=== PATIENT | male | born 1940 | race Caucasian/White ===

== ENCOUNTER 2021-01-06 09:30 | Inpatient (IN) | payer MEDICARE, MEDICAID, SELFPAY ==
[2021-01-06] VITALS (11 sets, daily range): BP systolic 139–168; BP diastolic 78–91; PULSE 60–88; RESP 12–18; TEMP 36.4–36.9; O2SAT 90–98; BMI 24.8
--- NOTE | ~2021-01-06 | XR_ITS ---
EXAMINATION: XR hip LT 1V EXAM DATE: 01/07/2021 13:11 INDICATION: Postop. TECHNIQUE: Frontal projection left hip obtained immediately postoperative. Correlation is made to pr eoperative x-ray from yesterday. FINDINGS: There is left hip arthroplasty hardware in expected position on this frontal image. Small amount of gas in the hip joint. Scattered superficial femoral arterial sclerosis. IMPRESSION: Status post left arthroplasty. Reviewed, dictated and finalized at location A.
--- NOTE | ~2021-01-06 | XR_ITS ---
EXAMINATION: XR hip LT 2V w AP pelvis EXAM DATE: 01/06/2021 10:05 INDICATION: Initial encounter following injury, with pain of the left hip. TECHNIQUE: Left hip frontal, crosstable lateral projections for interpretation. Frontal projection pe lvis. There is no prior study for comparison. FINDINGS: There is acute closed posttraumatic left hip subcapital femoral neck fracture with mild imp action and superior displacement. No hip dislocation. Moderate bilateral hip primary osteoarthritis. Calcifications in the pelvis are believed to be phleboliths. Pelvic ring is intact. Superficial femor al scattered arterial sclerosis. IMPRESSION: 1. Acute left subcapital femoral neck fracture, mild impaction and superior displacement. Reviewed, dictated and finalized at location A. IMPRESSION: 1. Acute left subcapital femoral neck fracture, mild impaction and superior di splacement.
--- NOTE | ~2021-01-06 | XR_ITS ---
XR chest 1V DATE: 01/06/2021 10:06 INDICATION: Fall. Diabetes. TECHNIQUE: AP chest COMPARISON: 01/18/2019 AP and lateral chest FINDINGS: Suboptimal distention of the lungs and atelectasis or mild infiltrates at the lung bases. Borderline heart size. Aortic calcification and prominent tortuosity. Calcified azygous nodes, consistent with old pulmonary granulomatous disease. Diffuse osteopenia. IMPRESSION: Mild infiltrate or atelectasis at the lung bases Reviewed, dictated and finalized at location B.
--- NOTE | 2021-01-06 09:34 | ECG_ITS ---
Measurements Intervals Moon Rate: 67 P: -54 ME: 201 QRS: -24 QRSD: 84 T: 11 QT: 393 QTc: 415 Interpretive Statements SINUS RHYTHM CONSIDER INFERIOR INFARCT, AGE INDETERMINATE BASELINE ARTIFACT- I, II, III, AVR, AVL, AVF ABNORMAL ECG Electronically Signed On 01-06-2021 11:18:48 CDT by Billy Celis D.O.
--- NOTE | 2021-01-06 09:34 | ED.GENADULT ---
HPI - General Adult General Chief complaint: Extremity Injury, Lower Stated complaint: FALL/HIP FX Source: RN notes reviewed History of Present Illness HPI narrative: Patient presents emergency department from home via EMS for left hip pain. Patient states that prior to arrival he was trying to move a sock on the ground in the dining room with his right foot when his left foot went out from under him causing him to fall and land on his left hip states he is had severe pain since that time patient states that he lives at home with his daughter and ambulates with no assistance he denies any blood thinner use he denies striking his head or any other injury Related Data Home Medications Medication Instructions Recorded Confirmed alprazolam [Xanax] 2 mg PO BID 01/06/21 glimepiride 2 mg PO DAILY 01/06/21 01/06/21 hydrocodone-acetaminophen 1 tablet PO Q6H PRN 01/06/21 01/06/21 insulin detemir U-100 [Levemir unit SUBCUT HS 01/06/21 U-100 Insulin] lisinopril 10 mg PO DAILY 01/06/21 memantine 10 mg PO QPM 01/06/21 metformin 500 mg PO DAILY 01/06/21 simvastatin 80 mg PO DAILY 01/06/21 verapamil 180 mg PO DAILY 01/06/21 Allergies Allergy/AdvReac Type Severity Reaction Status Date / Time No Known Allergies Allergy Verified 01/06/21 10:42 Review of Systems Review of Systems: Narrative: Gen.: Denies fevers or chills Eyes: Denies eye pain or visual change ENT: Denies congestion Respiratory: Denies shortness of breath or cough CV: Denies chest pain or palpitations GI: Denies abdominal pain nausea, emesis or diarrhea Musculoskeletal: See HPI Neuro: Denies numbness, tingling, weakness or focal weakness Skin: Denies rash Except as documented, all other systems reviewed and negative [facility] Past Medical History Medical History (Updated 01/06/21 @ 11:37 by Rylan Reynoso DO) Diabetes mellitus Social History Social History (Updated 01/06/21 @ 09:35 by Rylan Reynoso DO) Smoking status: Never smoker Exam Narrative: Exam Narrative: APPEARANCE: No acute distress, nontoxic, resting in bed EYES: EOMI HEENT: Normocephalic, atraumatic, OMM RESPIRATORY: No respiratory distress Clear to auscultation bilaterally with no rhonchi wheezing or rales. CARDIOVASCULAR: Regular rate and rhythm without murmurs rubs or gallops. ABDOMINAL: Soft, nontender, nondistended, no rebound or guarding MUSCULOSKELETAl:No clubbing, cyanosis or edema. Tender palpation over left lateral and anterior hip with pain with any movement of the left hip no tenderness left knee or ankle, dorsalis pedis pulse 2+ neurovascular intact no tenderness the bilateral upper extremities and the right lower extremity NEURO: Awake and alert x 4. Following commands, speech normal, no focal deficits SKIN:: Warm, dry. No rashes lesions or abrasions PSYCHIATRIC: Normal affect/mood, Course Course Emergency Course: Discussed with Dr. Esqueda for orthopedics presentation work-up agrees with consult Dr. Motley presentation work-up agrees with admission at this time Discussed with patient and family results of workup and diagnosis. Discussed need for admission. Patient and family understand and agree to current treatment plan Vital Signs Vital signs: Vital Signs Temperature 97.6 F 01/06/21 09:28 Pulse Rate 79 01/06/21 09:28 Respiratory Rate 16 01/06/21 09:28 Blood Pressure 153/82 H 01/06/21 09:28 Pulse Oximetry 94 01/06/21 09:28 Temperature 97.6 F 01/06/21 09:28 Pulse Rate 79 01/06/21 09:28 Respiratory Rate 16 01/06/21 09:28 Blood Pressure 153/82 H 01/06/21 09:28 Pulse Oximetry 94 01/06/21 09:28 Medical Decision Making Vital Signs Vital Signs: Vital Signs Temperature 97.6 F 01/06/21 09:28 Pulse Rate 79 01/06/21 09:28 Respiratory Rate 16 01/06/21 09:28 Blood Pressure 153/82 H 01/06/21 09:28 Pulse Oximetry 94 01/06/21 09:28 Temperature 97.6 F 01/06/21 09:28 Pulse Rate 79 01/06/21 09:28 Resp
[2021-01-06 10:09] LABS: Basophils Absolute Auto 0.1 K/mm3 (0.0-0.1); Basophils Percent Auto 0.5 % (0.2-1.2); Eosinophils Absolute Auto 1.1 K/mm3 (0-0.3); Eosinophils Percent Auto 11.3 % (0-4.4); Hematocrit 44.1 % (42.0-52.0); Hemoglobin 14.3 g/dL (14.0-18.0); Immature Granulocyte Absolute 0.04 K/mm3 (0.00-0.031); Immature Granulocyte Percent A 0.4 % (0-0.5); Lymphocytes Absolute Auto 2.36 K/mm3 (0.9-3.2); Lymphocytes Percent Auto 24.6 % (18.3-44.2); Mean Corpuscular HGB Conc 32.4 g/dl (32-36); Mean Corpuscular Hemoglobin 29.1 pg (26-34); Mean Corpuscular Volume 89.8 fl (80-100); Mean Platelet Volume 9.6 fl (7.4-10.4); Monocytes Absolute Auto 0.5 K/mm3 (0.1-0.6); Monocytes Percent Auto 5.1 % (2.6-8.5); Neutrophils Absolute Auto 5.6 K/mm3 (1.3-6.7); Neutrophils Percent Auto 58.1 % (45.5-73.1); Platelet Count Result 233 k/mm3 (150-375); Red Blood Count 4.91 M/mm3 (4.6-6.20); Red Cell Distribution Width 14.1 % (11.5-14.5); White Blood Count 9.6 K/mm3 (4.5-10.0)
[2021-01-06 10:19] LABS: INR 0.9; Partial Thromboplastin Time 27.1 SECONDS (22.3-36.8); Prothrombin Time 12.8 Seconds (11.1-14.7)
[2021-01-06 10:29] LABS: Alanine Aminotransferase 18 U/L (4-50); Albumin Level 4.6 g/dL (3.5-5.1); Alkaline Phosphatase 83 U/L (38-126); Anion Gap 9 mmol/L (8-16); Aspartate Amino Transferase 25 U/L (17-59); Bilirubin,Total 0.2 mg/dL (0.2-1.3); Blood Urea Nitrogen 27 mg/dL (9-20); Calcium 9.3 mg/dL (8.4-10.2); Carbon Dioxide 26 mmol/L (22-30); Chloride 104 mmol/L (98-107); Estimated CRCL calculation 46 ml/min; Estimated Glomerular Filt Rate 58; Glucose 150 mg/dL (75-110); Sodium 139 mmol/L (137-145)
[2021-01-06] MEDS: fentaNYL CITRATE INJ (*CRX) 100 MCG/2 ML VIAL 50 MCG IV PUSH (11:12)
[2021-01-06 12:35] LABS: Add Urine Microscopic? YES; Appearance Urine Clear (Clear); Bilirubin Urine Negative (Negative); Blood Urine Negative (Negative); Color Urine Straw (Yellow); Glucose Urine UA Negative (Negative); Ketones Urine Negative (Negative); Leukocyte Esterase Ur Negative LEU/UL (Negative); Nitrate Urine Negative (Negative); Protein Urine 2+ mg/dL (Negative); RBC Urine 0-2 /hpf (0-2); Specific Grav Ur 1.018 (1.001-1.035); Urobilinogen Urine Negative mg/dL (<2.0); WBC Urine 0-3 /hpf
--- NOTE | 2021-01-06 12:36 | ADMGEN ---
This patient, Vitaly Hatfield, was admitted to Medical Room 255-. Patient/family oriented to hospital policies and general routines including ID bracelet, bed and alarms, visiting hours, pain management, procedures, bathroom and other care routines, personal items, smoking policy, room service/diet, and visiting hours. Information on how to activate the Rapid Response Team has been discussed. Patient/Family are encouraged to report perceived risks to care and to ask questions if they do not understand what they are told or what they should do.
[2021-01-06] MEDS: SODIUM CHLORIDE 0.9% IV 1,000 ML 125 ML IV CONT ×2 (12:54→21:10)
--- NOTE | 2021-01-06 13:00 | PM.IMHP ---
H&P: HPI History of Present Illness Date/Time: 01/06/21 13:00 Chief Complaint: Left hip pain after a fall. Narrative: This is an 80-year-old male with history of stroke, insulin dependent, diabetes, hypertension, and hyperlipidemia who presented to the emergency department earlier today from home via EMS for evaluation of left hip pain after a fall. Unfortunately he lost his balance on a hardwood floor when he bent over to pick something up, and fell hard onto his left hip. He had immediate pain in that hip and was unable to bear weight due to such. Imaging showed an acute left subcapital femoral neck fracture and he is being admitted in this setting. initially we were having difficulties controlling his pain but at this time he is resting comfortably and rates his pain 3/10. He has a difficult time describing the pain but states that it is severe and he is having occasional spasms. The pain is worse with movement. He denies loss of consciousness in the fall and sustained no other injuries. No history of cardiac or pulmonary disease. He denies exertional chest pain and shortness of breath. No history of adverse events with anesthesia. Review of Systems Review of Systems: Narrative: Twelve systems were reviewed with pertinent positives and negatives as per HPI. No fever, chills, or sweats. He denies recent cold and flu symptoms. No exposure to those positive for COVID-19. He denies nausea, vomiting, and diarrhea. No dysuria. He gets quite anxious and admits that he was highly anxious earlier today which he thinks was making the pain worse. Much more calm at this time. He believes his diabetes is well controlled . No blurry vision, polydipsia, or polyuria. On memantine for memory loss, denies dementia diagnosis. No history of venous thromboembolism. Except as documented, all other systems were reviewed and are negative. [facility] Past Medical History Medical History Anxiety Cerebrovascular accident (10/27/18) Hyperlipidemia Hypertension Insulin dependent diabetes mellitus Surgical History Surgical History History of colostomy History of inguinal hernia repair Family History Family History Mother Diabetes mellitus Congestive heart failure Father Cerebrovascular accident Social History Social History (Updated 01/06/21 @ 23:47 by Erma Mclaughlin PA-C) Social History: The patient lives in [place] with his daughter. Former smoker. No alcohol or illicit substance abuse. Kelly Fernandez, daughter, is his surrogate decision maker. Code status: Full code. Smoking status: Former smoker Alcohol intake: never Substance use: never Substance use type: does not use Living arrangements: with family Additional living arrangements comments: Patient currently lives with his daughter Occupation/Education: retired Additional occupation/education comments: He is a retired banker Gender identity (if verbalized by the patient): Male Spiritual care concerns: No Meds Home Medications and Allergies Home Medications Medication Instructions Recorded Confirmed Type alprazolam [Xanax] 2 mg PO BID 01/06/21 01/06/21 History glimepiride 2 mg PO DAILY 01/06/21 01/06/21 History hydrocodone-acetaminophen 1 tablet PO Q6H PRN 01/06/21 01/06/21 History insulin detemir U-100 [Levemir 12 unit SUBCUT HS 01/06/21 01/06/21 History U-100 Insulin] lisinopril 10 mg PO DAILY 01/06/21 01/06/21 History memantine 10 mg PO QPM 01/06/21 01/06/21 History metformin 500 mg PO DAILY 01/06/21 01/06/21 History simvastatin 80 mg PO DAILY 01/06/21 01/06/21 History verapamil 180 mg PO DAILY 01/06/21 01/06/21 History Allergies Allergy/AdvReac Type Severity Reaction Status Date / Time No Known Allergies Allergy Verified 01/06/21 12:45 Vital Signs
[2021-01-06 13:13] LABS: Glucose Point of Care 154 (65-105)
[2021-01-06 13:48] LABS: Hemoglobin A1C 6.7 % (<5.7)
[2021-01-06] MEDS: ALPRAZolam (*CRX) 0.5 MG TABLET 2 MG PO ×2 (13:51→23:31)
[2021-01-06] MEDS: HYDROmorphone HCL INJ (*CRX) 1 MG/ML SYR 0.5 MG IV PUSH ×3 (14:00→21:14)
--- NOTE | 2021-01-06 15:24 | PM.CNOR ---
Assessment and Plan Assessment and plan (1) Subcapital fracture of left hip: Qualifiers: Encounter type: initial encounter Fracture type: closed Qualified Code(s): S72.012A - Unspecified intracapsular fracture of left femur, initial encounter for closed fracture <GIGI Fine - Last Filed: 01/06/21 15:38> Code(s): S72.012A - Unspecified intracapsular fracture of left femur, initial encounter for closed fracture <GIGI Fine - Last Filed: 01/06/21 15:38> Status: Acute <GIGI Fine - Last Filed: 01/06/21 15:38> Assessment and Plan: Radiographs the left hip revealed an acute left subcapital femoral neck fracture, mild impaction and superior displacement. History, exam and radiographs reviewed with the patient. Conservative and operative treatment options reviewed as well the risks and benefits of each. Patient would like to proceed with surgical intervention at this time. Discussed Left Hip Bipolar vs. Left KEL Risks of surgery including but not limited to neurovascular damage, wound complications, blood clot, pulmonary embolus, stroke, myocardial infarction, anesthetic risks up to and including were reviewed. Continued pain and possible dysfunction were explained. No guarantees were offered. The patient understands and wishes to proceed. Plan: Left Hip Bipolar with potential for left total hip arthroplasty pending medical clearance NPO at midnight. Obtain consent. Continue pain control. Bedrest. <GIGI Fine - Last Filed: 01/06/21 15:38> History of Present Illness HPI Consult date: 01/06/21 <GIGI Fine - Last Filed: 01/06/21 15:38> 01/07/21 <Lucas Jade MD - Last Filed: 01/07/21 07:24> Consult reason: fracture ( Left hip fracture) <GIGI Fine - Last Filed: 01/06/21 15:38> Chief complaint: Left hip fracture <GIGI Fine - Last Filed: 01/06/21 15:38> Narrative: 80-year-old male admitted [facility] today status post fall while at home after tripping over his legs well going to flower buncher or picker his granddaughter socks. Patient had a hard fall onto the left hip and was unable to bear weight status post fall. He denies loss of consciousness. He denies any other joint pain. He was the then admitted to the [place] [facility] room and radiographs the left hip were obtained which revealed an acute left subcapital femoral neck fracture, mild impaction and superior displacement. He was admitted to [facility] for orthopedic surgery consultation. <IGNACIO FineP - Last Filed: 01/06/21 15:38> Review of Systems Constitutional: Constitutional: Reports no additional constitutional complaints, Denies chills, Denies fatigue, Denies fever(s), Denies headache(s) and Denies weakness <NadyaIGNACIO RandleP - Last Filed: 01/06/21 15:38> Eyes: Eyes: Denies change in vision <Nadyasa Enmanuel Nava [facility] - Last Filed: 01/06/21 15:38> ENT: Reports Normal hearing present and Denies headache(s) <Nadya Enmanuel Nava [facility] - Last Filed: 01/06/21 15:38> Cardiovascular: Cardiovascular: Denies chest pain and Denies dyspnea <Nadya Enmanuel Nava [facility] - Last Filed: 01/06/21 15:38> Respiratory: Respiratory: Denies cough, Denies dyspnea and Denies wheezing <Nadya Enmanuel Nava [facility] - Last Filed: 01/06/21 15:38> Gastrointestinal: Gastrointestinal: Denies constipation, Denies diarrhea, Denies nausea and Denies vomiting <Nadya Enmanuel Nava [employer] - Last Filed: 01/06/21 15:38> Genitourinary: Genitourinary: Denies hematuria and Denies dysuria <Nadya Enmanuel Nava [employer] - Last Filed: 01/06/21 15:38> Musculoskeletal: Musculoskeletal: Reports as per HPI, Denies numbness and Denies tingling <Nadya IGNACIO BowmanP - Last Filed: 01/06/21 15:38> Integumentary/Breasts: Skin/Breast: Reports as per HPI <Nadya IGNACIO BowmanP - Last Filed: 01/06/21 15:38> Neurologic: Reports as per HPI, Reports Normal hearing present, Denies headache(s), Denies n
[2021-01-06 17:18] LABS: Glucose Point of Care 148 (65-105)
[2021-01-06] MEDS: MEMANTINE 10 MG TABLET PO (17:24)
[2021-01-06 20:38] LABS: Glucose Point of Care 143 (65-105)
[2021-01-07] VITALS (18 sets, daily range): BP systolic 98–160; BP diastolic 66–98; PULSE 68–110; RESP 13–20; TEMP 36.2–37.4; O2SAT 90–98
[2021-01-07] MEDS: SODIUM CHLORIDE 0.9% IV 1,000 ML 125 ML IV CONT (05:15)
[2021-01-07] MEDS: HYDROmorphone HCL INJ (*CRX) 1 MG/ML SYR 0.5 MG IV PUSH (05:16)
[2021-01-07 06:23] LABS: Basophils Absolute Auto 0.1 K/mm3 (0.0-0.1); Basophils Percent Auto 0.4 % (0.2-1.2); Eosinophils Absolute Auto 0.9 K/mm3 (0-0.3); Hemoglobin 14.2 g/dL (14.0-18.0); Immature Granulocyte Absolute 0.04 K/mm3 (0.00-0.031); Immature Granulocyte Percent A 0.3 % (0-0.5); Lymphocytes Absolute Auto 1.35 K/mm3 (0.9-3.2); Lymphocytes Percent Auto 11.6 % (18.3-44.2); Mean Corpuscular Hemoglobin 28.6 pg (26-34); Mean Corpuscular Volume 86.5 fl (80-100); Mean Platelet Volume 9.6 fl (7.4-10.4); Monocytes Absolute Auto 0.8 K/mm3 (0.1-0.6); Monocytes Percent Auto 6.8 % (2.6-8.5); Neutrophils Absolute Auto 8.5 K/mm3 (1.3-6.7); Neutrophils Percent Auto 72.9 % (45.5-73.1); Platelet Count Result 215 k/mm3 (150-375); Red Blood Count 4.97 M/mm3 (4.6-6.20); Red Cell Distribution Width 13.8 % (11.5-14.5); White Blood Count 11.6 K/mm3 (4.5-10.0)
[2021-01-07] MEDS: VERAPAMIL HCL 180 MG TABLET ER PO (06:30)
[2021-01-07] MEDS: lisinopriL 10 MG TABLET PO (06:30)
[2021-01-07 06:38] LABS: Alanine Aminotransferase 12 U/L (4-50); Albumin Level 3.8 g/dL (3.5-5.1); Alkaline Phosphatase 57 U/L (38-126); Anion Gap 9 mmol/L (8-16); Aspartate Amino Transferase 19 U/L (17-59); Bilirubin,Total 0.5 mg/dL (0.2-1.3); Blood Urea Nitrogen 13 mg/dL (9-20); Calcium 8.6 mg/dL (8.4-10.2); Carbon Dioxide 23 mmol/L (22-30); Chloride 102 mmol/L (98-107); Estimated CRCL calculation 68 ml/min; Estimated Glomerular Filt Rate > 60; Glucose 162 mg/dL (75-110); Potassium 4.3 mmol/L (3.4-5.0); Sodium 134 mmol/L (137-145)
--- NOTE | 2021-01-07 07:23 | WPDHPUPDATE1 ---
History and Physical Update Update Date/Time: 01/07/21 07:23 History and Physical has been reviewed, including an updated exam of the patient. There are NO changes in the patient's condition. Risks, benefits, and alternatives have been discussed and questions answered. Patient agrees to proceed with procedure.
[2021-01-07 08:39] LABS: Glucose Point of Care 164 (65-105)
[2021-01-07 09:55] LABS: Glucose Point of Care 147 (65-105)
[2021-01-07] MEDS: TRANEXAMIC ACID 1,000MG/ISO100 1,000 MG/100 ML BAG 200 MG IVPB (10:00)
[2021-01-07] MEDS: LACTATED RINGERS 1,000 ML 30 ML IV CONT ×2 (10:00→12:57)
--- NOTE | 2021-01-07 10:00 | PC.NURSE ---
Pt to OR per bed.
--- NOTE | 2021-01-07 10:11 | WPDANESEPPF ---
Anes - Initial Pre Proc Eval Procedure: Operation Date: 01/07/21 11:00 Proposed Procedures p Left Bipolar Versus Left Total Hip Arthroplasty - Lucas Jade MD Date/Time: 01/07/21 10:11 Surgeon: Nancy Felix MD Pre Op Diagnosis: Left hip fracture Patient Data Age: 80 Gender: M Height: 1.83 m Weight: 83.2 kg Last Vital Signs Temp 36.6 C 01/07/21 06:00 Pulse 102 H 01/07/21 06:00 Resp 16 01/07/21 06:00 BP 160/98 H 01/07/21 06:00 Pulse Ox 91 01/07/21 09:51 Allergies Allergy/AdvReac Type Severity Reaction Status Date / Time No Known Allergies Allergy Verified 01/07/21 10:08 Home Medications Medication Instructions Recorded Confirmed Type alprazolam [Xanax] 2 mg PO BID 01/06/21 01/06/21 History glimepiride 2 mg PO DAILY 01/06/21 01/06/21 History hydrocodone-acetaminophen 1 tablet PO Q6H PRN 01/06/21 01/06/21 History insulin detemir U-100 [Levemir 12 unit SUBCUT HS 01/06/21 01/06/21 History U-100 Insulin] lisinopril 10 mg PO DAILY 01/06/21 01/06/21 History memantine 10 mg PO QPM 01/06/21 01/06/21 History metformin 500 mg PO DAILY 01/06/21 01/06/21 History simvastatin 80 mg PO DAILY 01/06/21 01/06/21 History verapamil 180 mg PO DAILY 01/06/21 01/06/21 History Laboratory Tests 01/06/21 01/06/21 01/06/21 09:53 09:53 09:53 WBC 9.6 K/mm3 K/mm3 (4.5-10.0) RBC 4.91 M/mm3 M/mm3 (4.6-6.20) Hgb 14.3 g/dL g/dL (14.0-18.0) Hct 44.1 % % (42.0-52.0) MCV 89.8 fl fl (80-100) MCH 29.1 pg pg (26-34) MCHC 32.4 g/dl g/dl (32-36) RDW 14.1 % % (11.5-14.5) Plt Count 233 k/mm3 k/mm3 (150-375) MPV 9.6 fl fl (7.4-10.4) Immature Gran % (Auto) 0.4 % % (0-0.5) Neut % (Auto) 58.1 % % (45.5-73.1) Lymph % (Auto) 24.6 % % (18.3-44.2) [place] % (Auto) 5.1 % % (2.6-8.5) Eos % (Auto) 11.3 % H % (0-4.4) Baso % (Auto) 0.5 % % (0.2-1.2) Lymph # (Auto) 2.36 K/mm3 K/mm3 (0.9-3.2) [place] # (Auto) 0.5 K/mm3 K/mm3 (0.1-0.6) Eos # (Auto) 1.1 K/mm3 H K/mm3 (0-0.3) Baso # (Auto) 0.1 K/mm3 K/mm3 (0.0-0.1) Abs Immat Gran (auto) 0.04 K/mm3 H K/mm3 (0.00-0.031) Absolute Neuts (auto) 5.6 K/mm3 K/mm3 (1.3-6.7) Absolute Nucleated RBC 0.0 K/mm3 K/mm3 (0.0-0.012) Nucleated RBC % 0.0 % % (0.0-0.2) PT 12.8 Seconds Seconds (11.1-14.7) INR 0.9 APTT 27.1 SECONDS SECONDS (22.3-36.8) Sodium 139 mmol/L mmol/L (137-145) Potassium 5.0 mmol/L mmol/L (3.4-5.0) Chloride 104 mmol/L mmol/L (98-107) Carbon Dioxide 26 mmol/L mmol/L (22-30) Anion Gap 9 mmol/L mmol/L (8-16) BUN 27 mg/dL H mg/dL (9-20) Creatinine 1.20 mg/dL mg/dL (0.7-1.3) Estim Creat Clear Calc 46 ml/min ml/min Estimated GFR 58 L (59 - ) Glucose 150 mg/dL H mg/dL (75-110) POC Capillary Glucose Hemoglobin A1c Calcium 9.3 mg/dL mg/dL (8.4-10.2) Total Bilirubin 0.2 mg/dL mg/dL (0.2-1.3) Direct Bilirubin AST 25 U/L U/L (17-59) ALT 18 U/L U/L (4-50) Alkaline Phosphatase 83 U/L U/L (38-126) Total Protein 8.0 g/dL g/dL (6.3-8.2) Albumin 4.6 g/dL g/dL (3.5-5.1) Urine Color Urine Appearance Urine pH Ur Specific [place] Urine Protein Urine Glucose (UA) Urine Ketones Ur Blood (Man) Urine Nitrate Urine Bilirubin Urine Urobilinogen Leukocyte Esterase Rfl Urine RBC Urine WBC Blood Type Antibody Screen 01/06/21 01/06/21 01/06/21 09:53 12:02
[2021-01-07] MEDS: ceFAZolin 2 GM/D5W 50 ML 2 GM/50 ML BAG IVPB ×2 (10:52→18:19)
[2021-01-07] MEDS: TRANEXAMIC ACID 1,000 MG/10 ML AMPUL 1000 MG IV PUSH (12:26)
--- NOTE | 2021-01-07 12:35 | P.OP_ITS ---
Procedure Note - Detailed Date of procedure: 01/07/21 Pre-op diagnosis: Left hip fracture LEFT FEMORAL NECK FRACTURE Post-op diagnosis: same Procedure performed: LEFT HIP BIPOLAR HEMIARTHROPLASTY Description of procedure: THE PATIENT WAS TAKEN TO THE OPERATING ROOM IN STABLE CONDITION. HE WAS PLACED IN THE LATERAL DECUBITUS AND THE LEFT LOWER EXTREMITY WAS PREPPED AND DRAPED IN THE STERILE FASHION. INCISION WAS MADE IN THE POSTERIOR LATERAL SIDE OF THE HIP, DOWN TO THE FASCIA LAYER. THE FASCIA WAS INCISED. THE HIP WAS EXPOSED. THE SHORT EXTERNAL ROTATORS WERE EXPOSED AND THERE WAS A LARGE HEMATOMA. THE CAPSULE WAS INCISED EXPOSING THE FRACTURE. THE FEMORAL HEAD WAS REMOVED. IT MEASURED 53 MM. AN OSTEOTOMY WAS MADE TO THE FEMORAL NECK ABOUT 1 CM PROXIMAL TO THE LESSER TROCHANTER. NEXT THE FEMUR WAS P REPARED WITH INITIAL CANAL FINDER THEN SEQUENTIAL REAMING UNTIL A #10 REAMER AND BROACHING TILL A #10 BROACH FIT WELL IN 15 OF ANTE VERSION. A 0 STANDARD OFFSET NECK BIPOLAR TRIAL WAS PLACED. THE SHUCK TEST WAS EXCELLENT AND THE STABILITY IN FLEXION AND ROTATION WAS EXCELLENT. LEG LENGTHS WERE GROSSLY EQUAL. TRIALS WERE REMOVED. AN ECHO BIMETRIC #10 PRESS FIT STEM WAS PLACED WITH A STANDARD O FFSET IN 15 DEG OF ANTEVERSION. A 0 BIPOLAR HEAD NECK TRIAL WAS PLACED AGAIN. THE HIP WAS TRIALED AND THE STABILITY WAS EXCELLENT WERE THE LEG LENGTHS AND THE SHUCK TEST. NEXT A BIPOLAR 54 MM HEAD AND STANDARD OFFSET 0 NECK IMPLANT WAS PLACED AND TRIALED ONCE AGAIN SHOWING EXCELLENT STABILITY AND GROSSLY EQUAL LEG LENGTHS. THE WOUND WAS IRRIGATED WITH STERILE BETADINE AND WATER FOR 3 MIN. THEN WASHED AGAIN. THE CAPSULE AND THE EXTERNAL ROTATORS WERE APPROXIMATED WITH NUMBER 1 VICRYL. THE FASCIA WITH No 2 QUIL AND THE SUB CUTANEOUS LAYER WITH 2-0 ABSORBABLE SUTURE WITH A RUNNING 3-0 SUBCUTICULAR LAYER WELL. DERMABOND WAS PLACED AND STERILE DRESSING WAS APPLIED. PATIENT WAS PLACED BACK ON TO THE SUPINE POSITION AND WAS EXTUBATED. Anesthesia: GETA Surgeon: Lucas Jade MD Estimated blood loss (mL): 200 Drains: No Pathology: none sent Complications: No immediate complications Condition: stable Disposition: PACU
[2021-01-07 13:30] LABS: Glucose Point of Care 166 (65-105)
[2021-01-07] MEDS: SIMVASTATIN 20 MG TABLET 80 MG PO (14:41)
[2021-01-07] MEDS: ALPRAZolam (*CRX) 0.5 MG TABLET 2 MG PO ×2 (14:45→20:32)
[2021-01-07 15:06] LABS: Hematocrit 44.2 % (42.0-52.0); Hemoglobin 14.3 g/dL (14.0-18.0)
[2021-01-07] MEDS: GLIMEPIRIDE 2 MG TABLET PO (15:34)
[2021-01-07] MEDS: INSULIN ASPART (*BKC) 100 UNITS/ML SUB-Q ×2 (15:34→17:30)
[2021-01-07] MEDS: DOCUSATE SODIUM 100 MG CAPSULE PO (16:28)
--- NOTE | 2021-01-07 16:28 | PM.IMPN ---
Progress Note: A&P Assessment and Plan (1) Subcapital fracture of left hip: Qualifiers: Encounter type: initial encounter Fracture type: closed Qualified Code(s): S72.012A - Unspecified intracapsular fracture of left femur, initial encounter for closed fracture Code(s): S72.012A - Unspecified intracapsular fracture of left femur, initial encounter for closed fracture Status: Acute Assessment and Plan: Sp LEFT HIP BIPOLAR HEMIARTHROPLASTY. Continue pain control, SCds, watch UO (2) Hypertension: Code(s): I10 - Essential (primary) hypertension Status: Chronic Assessment and Plan: Continue home medications - SOPHIA inhibitors (3) Insulin dependent diabetes mellitus: Status: Chronic Assessment and Plan: Continue home medications - metformin, insulin, glimepiride (4) Hyperlipidemia: Code(s): E78.5 - Hyperlipidemia, unspecified Status: Chronic Assessment and Plan: Continue home medications - statin (5) Anxiety: Code(s): F41.9 - Anxiety disorder, unspecified Status: Chronic Assessment and Plan: Continue home medications - xanax Subjective Date/time seen: 01/07/21 16:28 Interval history: 80-year-old male with history of stroke, insulin dependent, diabetes, hypertension, and hyperlipidemia who presented to the emergency department earlier today from home via EMS for evaluation of left hip pain after a fall. SP LEFT HIP BIPOLAR HEMIARTHROPLASTY. WAtch UO. Review of Systems Review of Systems: All systems reviewed & are unremarkable except as noted in HPI and below Exam Narrative: Exam Narrative: General: Well-developed post op lying in bed Gastrointestinal: Abdomen is soft nontender, and nondistended with positive bowel sounds. Genitourinary: Simms catheter draining clear yellow urine. Skin: Warm and dry. No rash or lesions on limited exam. Extremities: No cyanosis, clubbing, or edema. Radial and pedal pulses intact. Musculoskeletal: Fresh incision with occlusive dressing Neurological: Alert. Cranial nerves 2-12 are grossly intact. No gross focal deficits to casual conversation. Psychiatric: Pleasant and cooperative with normal mood and affect. Objective Data Vital Signs Vital Signs: Vital Signs - 24 hr 01/06/21 18:00 01/06/21 21:25 01/07/21 06:00 Temperature 36.9 C 36.8 C 36.6 C Pulse Rate 84 88 102 H Respiratory Rate 18 18 16 Blood Pressure 168/88 H 168/90 H 160/98 H Pulse Oximetry 90 95 94 01/07/21 09:51 01/07/21 09:53 01/07/21 13:00 Temperature 37.4 C 36.9 C Pulse Rate 110 H 75 Respiratory Rate 18 16 Blood Pressure 154/97 H 130/81 Pulse Oximetry 91 94 97 01/07/21 13:15 01/07/21 13:30 01/07/21 13:45 Temperature Pulse Rate 77 74 78 Respiratory Rate 13 13 20 Blood Pressure 134/82 135/84 143/86 H Pulse Oximetry 96 96 98 01/07/21 14:00 01/07/21 14:15 01/07/21 14:40 Temperature Pulse Rate 77 84 Respiratory Rate 16 20 Blood Pressure 153/93 H 147/86 H Pulse Oximetry 94 95 95 01/07/21 15:27 Temperature Pulse Rate Respiratory Rate Blood Pressure Pulse Oximetry 95 Intake/Output Intake/Output: Intake & Output 01/04/21 01/05/21 01/06/21 01/07/21 23:59 23:59 23:59 23:59 Intake Total 1100 1600 Output Total 950 1905 Balance 150 -305 Meds/Results Medications: Active Medications Generic Name Dose Route Start Last Admin Trade Name Freq PRN Reason Stop Dose Admin Acetaminophen 650 mg 01/06/21 13:32 Acetaminophen 325 Mg Tablet PO Q6H PRN Mild Pain (1-3) or Fever Hydrocodone Bitart/Acetaminophen 1 tab 01/07/21 13:02 Hydrocodone/Acetaminophen (*Crx) 7.5-325 Mg Tablet PO Q3H PRN Pain Rated 4-6 Alprazolam 2 mg 01/06/21 13:30 01/07/21 14:45 Alprazolam (*Crx) 0.5 Mg Tablet PO 2 mg Q12HR ROBY Administration Aspirin 325 mg 01/07/21 21:00 Aspirin 325 Mg Enteric Tablet PO Q12HR ROBY Dextrose
[2021-01-07] MEDS: MEMANTINE 10 MG TABLET PO (17:32)
[2021-01-07 17:42] LABS: Glucose Point of Care 227 mg/dl (65-105)
[2021-01-07 17:42] LABS: Glucose Point of Care 286 mg/dl (65-105)
[2021-01-07] MEDS: HYDROcodone/acetaminophen (*CRX) 7.5-325 MG TABLET 1 TAB PO (18:22)
[2021-01-07] MEDS: FAMOTIDINE 20 MG TABLET PO (20:32)
[2021-01-07] MEDS: ASPIRIN 325 MG ENTERIC TABLET PO (20:32)
[2021-01-07] MEDS: INSULIN DETEMIR 100 UNITS/ML 12 UNITS SUB-Q (20:35)
[2021-01-07 20:46] LABS: Glucose Point of Care 285 mg/dl (65-105)
[2021-01-08 02:47] VITALS: BP 153/84; PULSE 83; RESP 18; TEMP 36.8; O2SAT 96
[2021-01-08] MEDS: ceFAZolin 2 GM/D5W 50 ML 2 GM/50 ML BAG IVPB ×2 (03:18→11:18)
[2021-01-08 06:39] LABS: Basophils Percent Auto 0.3 % (0.2-1.2); Eosinophils Percent Auto 0.1 % (0-4.4); Hematocrit 37.8 % (42.0-52.0); Hemoglobin 12.3 g/dL (14.0-18.0); Immature Granulocyte Absolute 0.03 K/mm3 (0.00-0.031); Immature Granulocyte Percent A 0.3 % (0-0.5); Lymphocytes Absolute Auto 1.01 K/mm3 (0.9-3.2); Lymphocytes Percent Auto 9.2 % (18.3-44.2); Mean Corpuscular HGB Conc 32.5 g/dl (32-36); Mean Corpuscular Hemoglobin 28.4 pg (26-34); Mean Corpuscular Volume 87.3 fl (80-100); Mean Platelet Volume 9.2 fl (7.4-10.4); Monocytes Absolute Auto 1.1 K/mm3 (0.1-0.6); Monocytes Percent Auto 10.1 % (2.6-8.5); Neutrophils Absolute Auto 8.8 K/mm3 (1.3-6.7); Platelet Count Result 165 k/mm3 (150-375); Red Blood Count 4.33 M/mm3 (4.6-6.20); Red Cell Distribution Width 13.9 % (11.5-14.5)
[2021-01-08 06:47] VITALS: BP 141/82; PULSE 87; RESP 21; TEMP 36.9; O2SAT 100
[2021-01-08 06:48] LABS: Anion Gap 8 mmol/L (8-16); Blood Urea Nitrogen 16 mg/dL (9-20); Calcium 8.3 mg/dL (8.4-10.2); Carbon Dioxide 20 mmol/L (22-30); Chloride 103 mmol/L (98-107); Estimated CRCL calculation 50 ml/min; Estimated Glomerular Filt Rate > 60; Glucose 187 mg/dL (75-110); Potassium 4.7 mmol/L (3.4-5.0); Sodium 131 mmol/L (137-145)
--- NOTE | 2021-01-08 08:24 | WPDANESPN ---
Anes - Prog Note Post-Op Date/Time: 01/08/21 08:24 Cardiovascular status: normal Respiratory status: normal Airway patency: baseline Mental status: baseline Post-Op hydration status: normal Vital Signs: Last Vital Signs Temp 36.9 C 01/08/21 06:47 Pulse 87 01/08/21 06:47 Resp 21 H 01/08/21 06:47 BP 141/82 H 01/08/21 06:47 Pulse Ox 100 01/08/21 06:47 Pain Score (VAS): 0 I/O: Intake & Output 01/07/21 01/08/21 01/08/21 23:59 07:59 15:59 Intake Total 1430 700 Output Total 250 900 Balance 1180 -200 Laboratory Tests 01/08/21 06:31 01/08/21 06:31 01/07/21 01/07/21 01/07/21 06:34 09:52 13:26 WBC RBC Hgb Hct MCV MCH MCHC RDW Plt Count MPV Immature Gran % (Auto) Neut % (Auto) Lymph % (Auto) Carroll % (Auto) Eos % (Auto) Baso % (Auto) Lymph # (Auto) Carroll # (Auto) Eos # (Auto) Baso # (Auto) Abs Immat Gran (auto) Absolute Neuts (auto) Absolute Nucleated RBC Nucleated RBC % Sodium Potassium Chloride Carbon Dioxide Anion Gap BUN Creatinine Estim Creat Clear Calc Estimated GFR Glucose POC Capillary Glucose 164 H 147 H 166 H Calcium 01/07/21 01/07/21 01/07/21 14:54 15:30 17:29 WBC RBC Hgb 14.3 Hct 44.2 MCV MCH MCHC RDW Plt Count MPV Immature Gran % (Auto) Neut % (Auto) Lymph % (Auto) Carroll % (Auto) Eos % (Auto) Baso % (Auto) Lymph # (Auto) Carroll # (Auto) Eos # (Auto) Baso # (Auto) Abs Immat Gran (auto) Absolute Neuts (auto) Absolute Nucleated RBC Nucleated RBC % Sodium Potassium Chloride Carbon Dioxide Anion Gap BUN Creatinine Estim Creat Clear Calc Estimated GFR Glucose POC Capillary Glucose 227 H 286 H Calcium 01/07/21 01/08/21 01/08/21 20:31 06:31 06:31 WBC 11.0 H RBC 4.33 L Hgb 12.3 L Hct 37.8 L MCV 87.3 MCH 28.4 MCHC 32.5 RDW 13.9 Plt Count 165 MPV 9.2 Immature Gran % (Auto) 0.3 Neut % (Auto) 80.0 H Lymph % (Auto) 9.2 L Carroll % (Auto) 10.1 H Eos % (Auto) 0.1 Baso % (Auto) 0.3 Lymph # (Auto) 1.01 Carroll # (Auto) 1.1 H Eos # (Auto) 0.0 Baso # (Auto) 0.0 Abs Immat Gran (auto) 0.03 Absolute Neuts (auto) 8.8 H Absolute Nucleated RBC 0.0 Nucleated RBC % 0.0 Sodium 131 L Potassium 4.7 Chloride 103 Carbon Dioxide 20 L Anion Gap 8 BUN 16 Creatinine 1.10 Estim Creat Clear Calc 50 Estimated GFR > 60 Glucose 187 H POC Capillary Glucose 285 H Calcium 8.3 L Post-procedural complaints: none Patient Feedback: Patient satisfied with anesthetic care.
[2021-01-08] MEDS: HYDROcodone/acetaminophen (*CRX) 7.5-325 MG TABLET 1 TAB PO ×3 (08:37→20:25)
[2021-01-08] MEDS: metFORMIN HCL 500 MG TABLET PO (08:38)
[2021-01-08] MEDS: VERAPAMIL HCL 180 MG TABLET ER PO (08:38)
[2021-01-08] MEDS: ALPRAZolam (*CRX) 0.5 MG TABLET 2 MG PO ×2 (08:38→20:25)
[2021-01-08] MEDS: FAMOTIDINE 20 MG TABLET PO ×2 (08:38→20:25)
[2021-01-08] MEDS: lisinopriL 10 MG TABLET PO (08:39)
[2021-01-08] MEDS: GLIMEPIRIDE 2 MG TABLET PO (08:39)
[2021-01-08] MEDS: ASPIRIN 325 MG ENTERIC TABLET PO ×2 (08:39→20:25)
[2021-01-08] MEDS: SIMVASTATIN 20 MG TABLET 80 MG PO (08:39)
[2021-01-08 09:18] LABS: Glucose Point of Care 174 mg/dl (65-105)
[2021-01-08 10:47] VITALS: BP 115/89; PULSE 64; RESP 16; TEMP 36.7; O2SAT 94
[2021-01-08 12:11] LABS: Glucose Point of Care 200 mg/dl (65-105)
--- NOTE | 2021-01-08 13:47 | PM.IMPN ---
Progress Note: A&P Assessment and Plan (1) Subcapital fracture of left hip: Qualifiers: Encounter type: initial encounter Fracture type: closed Qualified Code(s): S72.012A - Unspecified intracapsular fracture of left femur, initial encounter for closed fracture Code(s): S72.012A - Unspecified intracapsular fracture of left femur, initial encounter for closed fracture Status: Acute Assessment and Plan: Sp LEFT HIP BIPOLAR HEMIARTHROPLASTY. Continue pain control, SCDs, watch UO, PT/OT (2) Hypertension: Code(s): I10 - Essential (primary) hypertension Status: Chronic Assessment and Plan: Continue home medications - SOPHIA inhibitors (3) Insulin dependent diabetes mellitus: Status: Chronic Assessment and Plan: Continue home medications - metformin, insulin, glimepiride, hbaic is 6.7 (4) Hyperlipidemia: Code(s): E78.5 - Hyperlipidemia, unspecified Status: Chronic Assessment and Plan: Continue home medications - statin (5) Anxiety: Code(s): F41.9 - Anxiety disorder, unspecified Status: Chronic Assessment and Plan: Continue home medications - xanax Additional Plan Subjective Date/time seen: 01/08/21 13:47 Interval history: 80-year-old male with history of stroke, insulin dependent, diabetes, hypertension, and hyperlipidemia who presented to the emergency department earlier today from home via EMS for evaluation of left hip pain after a fall. SP LEFT HIP BIPOLAR HEMIARTHROPLASTY. Doing well with therapy, post op day 1. Review of Systems Review of Systems: All systems reviewed & are unremarkable except as noted in HPI and below Exam Narrative: Exam Narrative: General: Sitting on chair CVS: Heart sounds are normal RESP: Breath sounds are clear Gastrointestinal: Abdomen is soft nontender, and nondistended with positive bowel sounds. Genitourinary: Simms catheter draining clear yellow urine. Skin: Warm and dry. No rash or lesions on limited exam. Extremities: No cyanosis, clubbing, or edema. Radial and pedal pulses intact. Musculoskeletal: Fresh incision with occlusive dressing Neurological: Alert. Cranial nerves 2-12 are grossly intact. No gross focal deficits to casual conversation. Psychiatric: Pleasant and cooperative with normal mood and affect. Objective Data Vital Signs Vital Signs: Vital Signs - 24 hr 01/07/21 14:00 01/07/21 14:15 01/07/21 14:40 Temperature 36.4 C L Pulse Rate 77 84 81 Respiratory Rate 16 20 14 Blood Pressure 153/93 H 147/86 H 148/88 H Pulse Oximetry 94 95 95 01/07/21 15:10 01/07/21 15:27 01/07/21 15:40 Temperature 36.8 C 36.9 C Pulse Rate 84 79 Respiratory Rate 14 14 Blood Pressure 107/76 104/70 Pulse Oximetry 92 95 93 01/07/21 16:40 01/07/21 18:20 01/07/21 20:00 Temperature 37.1 C 36.8 C Pulse Rate 68 80 80 Respiratory Rate 14 14 14 Blood Pressure 98/70 L 121/72 Pulse Oximetry 90 93 93 01/07/21 22:00 01/07/21 22:47 01/08/21 02:47 Temperature 36.2 C L 36.2 C L 36.8 C Pulse Rate 82 82 83 Respiratory Rate 18 18 18 Blood Pressure 106/66 106/66 153/84 H Pulse Oximetry 96 96 96 01/08/21 06:47 01/08/21 10:47 Temperature 36.9 C 36.7 C Pulse Rate 87 64 Respiratory Rate 21 H 16 Blood Pressure 141/82 H 115/89 Pulse Oximetry 100 94 Intake/Output Intake/Output: Intake & Output 01/05/21 01/06/21 01/07/21 01/08/21 23:59 23:59 23:59 23:59 Intake Total 1100 3030 870 Output Total 950 2155 900 Balance 150 875 -30 Meds/Results Medications: Active Medications Generic Name Dose Route Start Last Admin Trade Name Brigidoq PRN Reason Stop Dose Admin Acetaminophen 650 mg 01/06/21 13:32 Acetaminophen 325 Mg Tablet PO Q6H PRN Mild Pain (1-3) or Fever Hydrocodone Bitart/Acetaminophen 1 tab 01/07/21 13:02 01/08/21 08:37 Hydrocodone/Acetaminophen (*Crx) 7.5-325 Mg Tablet PO 1 tab Q3H PRN Administration Pain R
[2021-01-08 14:47] VITALS: BP 118/76; PULSE 66; RESP 16; TEMP 36.6; O2SAT 94
--- NOTE | 2021-01-08 15:07 | PM.PNORT ---
Progress Note: A&P Additional Plan POD 1 DOING WELL SITING UP AND TAKING MINIMAL PAIN MEDICINE. RECOMMEND DC TO SNF VS REHAB ONCE PATIENT IS STABLE PER MEDICINE TEAM Subjective Subjective Date/Time Seen: pod 1 doing well. no calf pain or tenderness. Exam Extrem: Other: VSS AFEBRILE DRESSING DRY. 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 Objective Data Vital Signs Vital Signs: Vital Signs - 24 hr 01/07/21 15:10 01/07/21 15:27 01/07/21 15:40 Temperature 36.8 C 36.9 C Pulse Rate 84 79 Respiratory Rate 14 14 Blood Pressure 107/76 104/70 Pulse Oximetry 92 95 93 01/07/21 16:40 01/07/21 18:20 01/07/21 20:00 Temperature 37.1 C 36.8 C Pulse Rate 68 80 80 Respiratory Rate 14 14 14 Blood Pressure 98/70 L 121/72 Pulse Oximetry 90 93 93 01/07/21 22:00 01/07/21 22:47 01/08/21 02:47 Temperature 36.2 C L 36.2 C L 36.8 C Pulse Rate 82 82 83 Respiratory Rate 18 18 18 Blood Pressure 106/66 106/66 153/84 H Pulse Oximetry 96 96 96 01/08/21 06:47 01/08/21 10:47 01/08/21 14:47 Temperature 36.9 C 36.7 C 36.6 C Pulse Rate 87 64 66 Respiratory Rate 21 H 16 16 Blood Pressure 141/82 H 115/89 118/76 Pulse Oximetry 100 94 94 Intake/Output Intake/Output: Intake & Output 01/05/21 01/06/21 01/07/21 01/08/21 23:59 23:59 23:59 23:59 Intake Total 1100 3030 870 Output Total 950 2155 900 Balance 150 875 -30 Meds/Results Medications: Active Medications Generic Name Dose Route Start Last Admin Trade Name Freq PRN Reason Stop Dose Admin Acetaminophen 650 mg 01/06/21 13:32 Acetaminophen 325 Mg Tablet PO Q6H PRN Mild Pain (1-3) or Fever Hydrocodone Bitart/Acetaminophen 1 tab 01/07/21 13:02 01/08/21 13:58 Hydrocodone/Acetaminophen (*Crx) 7.5-325 Mg Tablet PO 1 tab Q3H PRN Administration Pain Rated 4-6 Alprazolam 2 mg 01/06/21 13:30 01/08/21 08:38 Alprazolam (*Crx) 0.5 Mg Tablet PO 2 mg Q12HR ROBY Administration Aspirin 325 mg 01/07/21 21:00 01/08/21 08:39 Aspirin 325 Mg Enteric Tablet PO 325 mg Q12HR ROBY Administration Dextrose 12.5 gm 01/06/21 13:28 Dextrose 50% 25 Gm/50 Ml Syringe IV PUSH PRN PRN Hypoglycemia Protocol Diazepam 5 mg 01/07/21 13:02 Diazepam (*Crx) 5 Mg Tablet PO Q6H PRN Anxiety/Muscle Spasm Docusate Sodium 100 mg 01/07/21 17:00 01/08/21 08:39 Docusate Sodium 100 Mg Capsule PO Not Given BID ROBY Famotidine 20 mg 01/07/21 21:00 01/08/21 08:38 Famotidine 20 Mg Tablet PO 20 mg Q12HR ROBY Administration Fentanyl Citrate 25 mcg 01/07/21 13:12 Fentanyl Citrate Inj (*Crx) 100 Mcg/2 Ml Vial IV PUSH Q2M PRN Pain Glimepiride 2 mg 01/07/21 08:00 01/08/21 08:39 Glimepiride 2 Mg Tablet PO 2 mg DAILY@0800 ROBY Administration Glucagon 1 mg 01/06/21 13:28 Glucagon For Inj 1 Mg Vial IM PRN PRN Hypoglycemia Protocol Glucose 15 gm 01/06/21 13:28 Glucose Oral Gel 15 Gm Of Glucse In 37.5 Gm Tube PO PRN PRN Hypoglycemia Protocol Dextrose 1,000 mls @ 100 mls/hr 01/06/21 13:28 Dextrose 5% 1,000 Ml IVPB PRN PRN Hypoglycemia Protocol Lactated Ringer's 1,000 mls @ 30 mls/hr 01/07/21 13:15 01/07/21 14:27 Lr - Lactated Ringers Iv IV CONT Infused .Q24H ROBY Infusion Insulin Aspart 2 - 5 units 01/06/21 17:00 01/08/21 11:18 Insulin Aspart (*Bkc) 100 Units/Ml SUB-Q Not Given TIDWM [facility] Protocol Insulin Detemir 12 units 01/07/21 21:00 01/07/21 20:35 Insulin Detemir 100 Units/Ml SUB-Q 02/06/21 21:01 12 units HS ROBY Administration Lisinopril 10 mg 01/07/21 09:00 01/08/21 08:39 Lisinopril 10 Mg Tablet PO 10 mg DAILY ROBY Administration Magnesium Hydroxide 30 ml 01/07/21 13:02 Magnesium Hydroxide Susp 30 Ml Udc PO BID PRN Constipation Memantine 10 mg 01/06/21 18:00 01/07/21 17:32 Memantine 10 Mg Tablet PO 10 mg QPM [facility] Administratio
[2021-01-08] MEDS: MEMANTINE 10 MG TABLET PO (17:07)
[2021-01-08 18:00] VITALS: BP 120/72; PULSE 70; RESP 16; TEMP 36.6; O2SAT 96
[2021-01-08 18:01] LABS: Glucose Point of Care 116 mg/dl (65-105)
[2021-01-08] MEDS: INSULIN DETEMIR 100 UNITS/ML 12 UNITS SUB-Q (20:27)
[2021-01-08 21:28] LABS: Glucose Point of Care 176 mg/dl (65-105)
[2021-01-08 22:00] VITALS: BP 111/71; PULSE 77; RESP 18; TEMP 36.1; O2SAT 96
[2021-01-09 02:00] VITALS: BP 103/67; PULSE 74; RESP 18; TEMP 36.8; O2SAT 96
[2021-01-09 06:00] VITALS: BP 154/87; PULSE 88; RESP 18; TEMP 36.8; O2SAT 96
[2021-01-09] MEDS: HYDROcodone/acetaminophen (*CRX) 7.5-325 MG TABLET 1 TAB PO ×3 (06:10→22:26)
[2021-01-09 07:43] LABS: Glucose Point of Care 102 mg/dl (65-105)
[2021-01-09] MEDS: ASPIRIN 325 MG ENTERIC TABLET PO ×2 (08:32→20:24)
[2021-01-09] MEDS: ALPRAZolam (*CRX) 0.5 MG TABLET 2 MG PO ×2 (08:32→20:23)
[2021-01-09] MEDS: DOCUSATE SODIUM 100 MG CAPSULE PO ×2 (08:32→17:34)
[2021-01-09] MEDS: GLIMEPIRIDE 2 MG TABLET PO (08:32)
[2021-01-09] MEDS: SIMVASTATIN 20 MG TABLET 80 MG PO (08:32)
[2021-01-09] MEDS: lisinopriL 10 MG TABLET PO (08:32)
[2021-01-09] MEDS: FAMOTIDINE 20 MG TABLET PO ×2 (08:32→20:24)
[2021-01-09] MEDS: metFORMIN HCL 500 MG TABLET PO (08:32)
[2021-01-09] MEDS: VERAPAMIL HCL 180 MG TABLET ER PO (08:33)
--- NOTE | 2021-01-09 09:04 | PM.PNORT ---
Progress Note: A&P Assessment and Plan (1) Subcapital fracture of left hip: Qualifiers: Encounter type: initial encounter Fracture type: closed Qualified Code(s): S72.012A - Unspecified intracapsular fracture of left femur, initial encounter for closed fracture Code(s): S72.012A - Unspecified intracapsular fracture of left femur, initial encounter for closed fracture Status: Acute Assessment and Plan: POD #2: Left Hip Bipolar Continue PT/OT. WBAT. Walker. Continue pain control. Ice lateral hip. Monitor dressing. Change prior to discharge. SCDs. Incentive Spirometry. DVT prophylaxis with Aspirin. Dispo: SNF vs Acute Rehab Follow up scheduled as an outpatient. Subjective Subjective Date/Time Seen: 01/09/21 09:04 POD #2: Left Hip Bipolar No new complaints. Doing well. Working well with PT/OT. Pain well controlled. Tolerating PO intake well. Review of Systems Constitutional: Constitutional: Reports no additional constitutional complaints, Denies excessive sweating, Denies fever(s) and Denies weight gain Eyes: Eyes: Reports no additional eye complaints and Denies change in vision ENT: Reports system reviewed and no additional complaints, except as documented and Reports Normal hearing present Cardiovascular: Cardiovascular: Denies chest pain, Denies diaphoresis, Denies leg ulcers and Denies dyspnea on exertion Respiratory: Respiratory: Reports no additional respiratory complaints, Denies cough and Denies dyspnea on exertion Gastrointestinal: Gastrointestinal: Reports no additional gastrointestinal complaints, Denies abdominal pain, Denies constipation, Denies nausea and Denies vomiting Genitourinary: Genitourinary: Reports as per HPI (catheter ) Musculoskeletal: Musculoskeletal: Reports no additional musculoskeletal complaints and Reports as per HPI Neurologic: Reports Normal hearing present Endocrine: Endocrine: Reports no additional endocrine complaints, Denies change in body appearance, Denies excessive sweating, Denies polyphagia, Denies polydipsia and Denies polyuria Exam Const: General: comfortable and no acute distress Resp: Effort & Inspection: normal respiratory effort Cardio: Rate: regular rate Rhythm: regular rhythm GI: Inspection: non-distended Urinary Catheter: Urinary Catheter: patent and draining and urine clear Skin: General skin exam: normal color Wounds: wounds noted (incision left hip C/D/I ) Neuro: Cognition (Neuro): normal cognition Speech: normal speech Extrem: Right lower extremity: normal to inspection, full ROM and normal capillary refill Left lower extremity: hip/thigh Details: tenderness Location: of the hip Location: laterally and anteriorly, swelling (thigh soft ) Location: of the hip (lateral. ), abnormal ROM (limitations with internal/external rotation and flexion/extension due to recent surgical intervention ) and other (incision lateral hip c/d/i. ), knee Details: normal to inspection and normal ROM; no tenderness and no swelling, lower leg (Negative Garrett's Sign ) Details: no edema, ankle (+ankle dorsiflexion/plantarflexion ) Details: normal to inspection, no edema and normal ROM; no tenderness, no swelling and no warmth and foot Details: normal capillary refill, toes with normal ROM, vascular exam Details: dorsalis pedis pulse present and motor-sensory exam light-touch normal in all toes; no tenderness, no ecchymosis and no crepitus Psych: Mental Status: mental status grossly normal Affect: normal affect Objective Data Vital Signs Vital Signs: Vital Signs - 24 hr 01/08/21 10:47 01/08/21 14:47 01/08/21 18:00 Temperature 36.7 C 36.6 C 36.6 C Pulse Rate 64 66 70 Respiratory Rate 16 16 16 Blood Pressure 115/89 118/76 120/72 Pulse Oximetry 94 94 96 01/08/21 22:00 01/09/21 02:00 01/09/21 06:00 Temperature 36.1 C L 36.8 C 36.8 C Pulse Rate 77 74 88 Respiratory Rate 18 18 18 Blood Pressure 111/71 103/67 154/87 H Pulse Oximetry
[2021-01-09 10:00] VITALS: BP 104/63; PULSE 81; RESP 16; TEMP 36; O2SAT 97
[2021-01-09 11:43] LABS: Glucose Point of Care 148 mg/dl (65-105)
--- NOTE | 2021-01-09 12:26 | PM.IMPN ---
Progress Note: A&P Assessment and Plan (1) Subcapital fracture of left hip: Qualifiers: Encounter type: initial encounter Fracture type: closed Qualified Code(s): S72.012A - Unspecified intracapsular fracture of left femur, initial encounter for closed fracture Code(s): S72.012A - Unspecified intracapsular fracture of left femur, initial encounter for closed fracture Status: Acute Assessment and Plan: Sp LEFT HIP BIPOLAR HEMIARTHROPLASTY. Continue pain control, SCDs, watch UO, PT/OT (2) Hypertension: Code(s): I10 - Essential (primary) hypertension Status: Chronic Assessment and Plan: Continue home medications - SOPHIA inhibitors (3) Insulin dependent diabetes mellitus: Status: Chronic Assessment and Plan: Continue home medications - metformin, insulin, glimepiride, hbaic is 6.7 (4) Hyperlipidemia: Code(s): E78.5 - Hyperlipidemia, unspecified Status: Chronic Assessment and Plan: Continue home medications - statin (5) Anxiety: Code(s): F41.9 - Anxiety disorder, unspecified Status: Chronic Assessment and Plan: Continue home medications - xanax Additional Plan Subjective Date/time seen: 01/09/21 12:26 Interval history: 80-year-old male with history of stroke, insulin dependent, diabetes, hypertension, and hyperlipidemia who presented to the emergency department earlier today from home via EMS for evaluation of left hip pain after a fall. SP LEFT HIP BIPOLAR HEMIARTHROPLASTY. Doing well with therapy, post op day 2, hopeful discharge tomorrow. Pt still having some pain in his left hip and looks tired today. Remove wells today. Review of Systems Review of Systems: All systems reviewed & are unremarkable except as noted in HPI and below Exam Narrative: Exam Narrative: General: Lying in bed tired today CVS: Heart sounds are normal RESP: Breath sounds are clear Gastrointestinal: Abdomen is soft nontender, and nondistended with positive bowel sounds. Skin: Warm and dry. No rash or lesions on limited exam. Extremities: Fresh incision with occlusive dressing Musculoskeletal: Fresh incision with occlusive dressing Neurological: Alert. Cranial nerves 2-12 are grossly intact. No gross focal deficits to casual conversation. Psychiatric: Pleasant and cooperative with normal mood and affect. Objective Data Vital Signs Vital Signs: Vital Signs - 24 hr 01/08/21 14:47 01/08/21 18:00 01/08/21 22:00 Temperature 36.6 C 36.6 C 36.1 C L Pulse Rate 66 70 77 Respiratory Rate 16 16 18 Blood Pressure 118/76 120/72 111/71 Pulse Oximetry 94 96 96 01/09/21 02:00 01/09/21 06:00 01/09/21 10:00 Temperature 36.8 C 36.8 C 36.0 C L Pulse Rate 74 88 81 Respiratory Rate 18 18 16 Blood Pressure 103/67 154/87 H 104/63 Pulse Oximetry 96 96 97 Intake/Output Intake/Output: Intake & Output 01/06/21 01/07/21 01/08/21 01/09/21 23:59 23:59 23:59 23:59 Intake Total 1100 3030 1710 1160 Output Total 950 2155 1300 1200 Balance 150 875 410 -40 Meds/Results Medications: Active Medications Generic Name Dose Route Start Last Admin Trade Name Freq PRN Reason Stop Dose Admin Acetaminophen 650 mg 01/06/21 13:32 Acetaminophen 325 Mg Tablet PO Q6H PRN Mild Pain (1-3) or Fever Hydrocodone Bitart/Acetaminophen 1 tab 01/07/21 13:02 01/09/21 06:10 Hydrocodone/Acetaminophen (*Crx) 7.5-325 Mg Tablet PO 1 tab Q3H PRN Administration Pain Rated 4-6 Alprazolam 2 mg 01/06/21 13:30 01/09/21 08:32 Alprazolam (*Crx) 0.5 Mg Tablet PO 2 mg Q12HR ROBY Administration Aspirin 325 mg 01/07/21 21:00 01/09/21 08:32 Aspirin 325 Mg Enteric Tablet PO 325 mg Q12HR ROBY Administration Dextrose 12.5 gm 01/06/21 13:28 Dextrose 50% 25 Gm/50 Ml Syringe IV PUSH PRN PRN Hypoglycemia Protocol Diazepam 5 mg 01/07/21 13:02 Diazepam (*Crx) 5 Mg Tablet PO Q6H PRN
[2021-01-09 14:00] VITALS: BP 112/66; PULSE 76; RESP 16; TEMP 36.3; O2SAT 96
[2021-01-09 17:30] LABS: Glucose Point of Care 130 mg/dl (65-105)
[2021-01-09] MEDS: MEMANTINE 10 MG TABLET PO (17:34)
[2021-01-09 20:00] VITALS: PULSE 60; RESP 20; O2SAT 96
[2021-01-09] MEDS: INSULIN DETEMIR 100 UNITS/ML 12 UNITS SUB-Q (20:25)
[2021-01-09 20:26] VITALS: BP 125/73; PULSE 60; RESP 20; TEMP 36.3; O2SAT 96
[2021-01-09 21:25] LABS: Glucose Point of Care 149 mg/dl (65-105)
[2021-01-10 05:03] VITALS: BP 134/89; PULSE 98; RESP 20; TEMP 36.9; O2SAT 92
[2021-01-10 05:42] LABS: Hematocrit 35.6 % (42.0-52.0); Hemoglobin 11.7 g/dL (14.0-18.0); Mean Corpuscular HGB Conc 32.9 g/dl (32-36); Mean Corpuscular Hemoglobin 28.9 pg (26-34); Mean Corpuscular Volume 87.9 fl (80-100); Mean Platelet Volume 9.6 fl (7.4-10.4); Platelet Count Result 204 k/mm3 (150-375); Red Blood Count 4.05 M/mm3 (4.6-6.20); Red Cell Distribution Width 13.8 % (11.5-14.5); White Blood Count 8.4 K/mm3 (4.5-10.0)
[2021-01-10 05:56] LABS: Anion Gap 8 mmol/L (8-16); Blood Urea Nitrogen 23 mg/dL (9-20); Calcium 8.8 mg/dL (8.4-10.2); Carbon Dioxide 24 mmol/L (22-30); Chloride 102 mmol/L (98-107); Estimated CRCL calculation 55 ml/min; Estimated Glomerular Filt Rate > 60; Glucose 140 mg/dL (75-110); Potassium 3.8 mmol/L (3.4-5.0); Sodium 134 mmol/L (137-145)
[2021-01-10] MEDS: VERAPAMIL HCL 180 MG TABLET ER PO (08:00)
[2021-01-10] MEDS: FAMOTIDINE 20 MG TABLET PO (08:00)
[2021-01-10] MEDS: DOCUSATE SODIUM 100 MG CAPSULE PO (08:00)
[2021-01-10] MEDS: ALPRAZolam (*CRX) 0.5 MG TABLET 2 MG PO (08:01)
[2021-01-10] MEDS: ASPIRIN 325 MG ENTERIC TABLET PO (08:01)
[2021-01-10] MEDS: metFORMIN HCL 500 MG TABLET PO (08:01)
[2021-01-10] MEDS: lisinopriL 10 MG TABLET PO (08:01)
[2021-01-10] MEDS: SIMVASTATIN 20 MG TABLET 80 MG PO (08:01)
[2021-01-10] MEDS: GLIMEPIRIDE 2 MG TABLET PO (08:01)
[2021-01-10] MEDS: HYDROcodone/acetaminophen (*CRX) 7.5-325 MG TABLET 1 TAB PO (08:05)
[2021-01-10 09:38] VITALS: O2SAT 94
--- NOTE | 2021-01-10 10:34 | PM.PNORT ---
Progress Note: A&P Assessment and Plan (1) Subcapital fracture of left hip: Qualifiers: Encounter type: initial encounter Fracture type: closed Qualified Code(s): S72.012A - Unspecified intracapsular fracture of left femur, initial encounter for closed fracture Code(s): S72.012A - Unspecified intracapsular fracture of left femur, initial encounter for closed fracture Status: Acute Assessment and Plan: POD #3: Left Hip Bipolar Continue PT/OT. WBAT. Walker. Continue pain control. Limit narcotics. Ice lateral hip. Monitor dressing. Change prior to discharge. SCDs. Incentive Spirometry. DVT prophylaxis with Aspirin. Dispo: SNF vs Acute Rehab Follow up scheduled as an outpatient. Subjective Subjective Date/Time Seen: 01/10/21 0930 POD #3: Left Hip Bipolar Sleeping in chair upon exam. Easily wakes to voice. Recent pain medication. Doing well. Working well with PT/OT. Review of Systems Review of Systems: All systems reviewed & are unremarkable except as noted in HPI and below Exam Const: General: comfortable and no acute distress Resp: Effort & Inspection: normal respiratory effort Cardio: Rate: regular rate Rhythm: regular rhythm GI: Inspection: non-distended Urinary Catheter: Urinary Catheter: patent and draining and urine clear Skin: General skin exam: normal color Wounds: wounds noted (incision left hip C/D/I ) Neuro: Cognition (Neuro): normal cognition Speech: normal speech Extrem: Right lower extremity: normal to inspection, full ROM and normal capillary refill Left lower extremity: hip/thigh Details: tenderness Location: of the hip Location: laterally and anteriorly, swelling (thigh soft ) Location: of the hip (lateral. ), abnormal ROM (limitations with internal/external rotation and flexion/extension due to recent surgical intervention ) and other (incision lateral hip c/d/i. ), knee Details: normal to inspection and normal ROM; no tenderness and no swelling, lower leg (Negative Garrett's Sign ) Details: no edema, ankle (+ankle dorsiflexion/plantarflexion ) Details: normal to inspection, no edema and normal ROM; no tenderness, no swelling and no warmth and foot Details: normal capillary refill, toes with normal ROM, vascular exam Details: dorsalis pedis pulse present and motor-sensory exam light-touch normal in all toes; no tenderness, no ecchymosis and no crepitus Psych: Mental Status: mental status grossly normal Affect: normal affect Objective Data Vital Signs Vital Signs: Vital Signs - 24 hr 01/09/21 14:00 01/09/21 20:00 01/09/21 20:26 Temperature 36.3 C L 36.3 C L Pulse Rate 76 60 60 Respiratory Rate 16 20 20 Blood Pressure 112/66 125/73 Pulse Oximetry 96 96 96 01/10/21 05:03 01/10/21 09:38 Temperature 36.9 C Pulse Rate 98 Respiratory Rate 20 Blood Pressure 134/89 Pulse Oximetry 92 94 Intake/Output Intake/Output: Intake & Output 01/07/21 01/08/21 01/09/21 01/10/21 23:59 23:59 23:59 23:59 Intake Total 3030 1710 1310 290 Output Total 2155 1300 2000 1900 Balance 876 377 -991 -0424 Meds/Results Medications: Active Medications Generic Name Dose Route Start Last Admin Trade Name Freq PRN Reason Stop Dose Admin Acetaminophen 650 mg 01/06/21 13:32 Acetaminophen 325 Mg Tablet PO Q6H PRN Mild Pain (1-3) or Fever Hydrocodone Bitart/Acetaminophen 1 tab 01/07/21 13:02 01/10/21 08:05 Hydrocodone/Acetaminophen (*Crx) 7.5-325 Mg Tablet PO 1 tab Q3H PRN Administration Pain Rated 4-6 Alprazolam 2 mg 01/06/21 13:30 01/10/21 08:01 Alprazolam (*Crx) 0.5 Mg Tablet PO 2 mg Q12HR ROBY Administration Aspirin 325 mg 01/07/21 21:00 01/10/21 08:01 Aspirin 325 Mg Enteric Tablet PO 325 mg Q12HR ROBY Administration Dextrose 12.5 gm 01/06/21 13:28 Dextrose 50% 25 Gm/50 Ml Syringe IV PUSH PRN PRN Hypoglycemia Protocol Diazepam 5 mg 01/07/21 13:02 Diazepam (*Crx) 5 Mg Table
--- NOTE | 2021-01-10 12:13 | PM.DS ---
DS: Admitting Diagnosis Admitting Diagnosis Admitting Diagnosis: Left hip pain with fall DS: Discharge Diagnosis Discharge Diagnosis (1) Subcapital fracture of left hip: Qualifiers: Encounter type: initial encounter Fracture type: closed Qualified Code(s): S72.012A - Unspecified intracapsular fracture of left femur, initial encounter for closed fracture Code(s): S72.012A - Unspecified intracapsular fracture of left femur, initial encounter for closed fracture Status: Acute Assessment and Plan: Sp LEFT HIP BIPOLAR HEMIARTHROPLASTY. Continue pain control, and theraphy IN Rehab. Pt does not do well with norco too strong for him change to tylenol or ibuprofen for pain. (2) Hypertension: Code(s): I10 - Essential (primary) hypertension Status: Chronic Assessment and Plan: Continue home medications - SOPHIA inhibitors (3) Insulin dependent diabetes mellitus: Status: Chronic Assessment and Plan: Continue home medications - metformin, insulin, glimepiride, hbaic is 6.7 (4) Hyperlipidemia: Code(s): E78.5 - Hyperlipidemia, unspecified Status: Chronic Assessment and Plan: Continue home medications - statin (5) Anxiety: Code(s): F41.9 - Anxiety disorder, unspecified Status: Chronic Assessment and Plan: Continue home medications - xanax DS: Summary Hospital Course Hospital Course: 80-year-old male with history of stroke, insulin dependent, diabetes, hypertension, and hyperlipidemia who presented to the emergency department earlier today from home via EMS for evaluation of left hip pain after a fall. SP LEFT HIP BIPOLAR HEMIARTHROPLASTY. Doing well with therapy, post op day 3. Pt can be discharged today. Time Spent with Patient Time attestation: Total time spent providing and/or coordinating discharge services:40 minutes on day of discharge Exam Narrative: Exam Narrative: General: Sitting in chair tired CVS: Heart sounds are normal RESP: Breath sounds are clear Gastrointestinal: Abdomen is soft nontender, and nondistended with positive bowel sounds. Skin: Warm and dry. No rash or lesions on limited exam. Extremities: Fresh incision with occlusive dressing Musculoskeletal: Fresh incision with occlusive dressing Neurological: Alert. Cranial nerves 2-12 are grossly intact. No gross focal deficits to casual conversation. Psychiatric: Pleasant and cooperative with normal mood and affect. DS: Data Data Completed and Pending Labs on day of discharge: Labs from last 24 hours 0501/10/21 01/09/21 05:24 05:24 20:20 WBC 8.4 RBC 4.05 L Hgb 11.7 L Hct 35.6 L MCV 87.9 MCH 28.9 MCHC 32.9 RDW 13.8 Plt Count 204 MPV 9.6 Sodium 134 L Potassium 3.8 Chloride 102 Carbon Dioxide 24 Anion Gap 8 BUN 23 H Creatinine 1.00 Estim Creat Clear Calc 55 Estimated GFR > 60 Glucose 140 H POC Capillary Glucose 149 H Calcium 8.8 01/09/21 17:27 WBC RBC Hgb Hct MCV MCH MCHC RDW Plt Count MPV Sodium Potassium Chloride Carbon Dioxide Anion Gap BUN Creatinine Estim Creat Clear Calc Estimated GFR Glucose POC Capillary Glucose 130 H Calcium Discharge Plan Discharge Attending physician on discharge: Nancy Felix Consulting providers: Lucas Jade Discharging Clinician: Nancy Felix Anticipated Discharge Date/Time: 01/10/21 11:00 Patient Disposition: Inpatient Rehab Facility Activity: may shower, no driving and follow weight bearing status Diet: diabetic Wound Care Instructions: follow printed instructions Discharge Instructions: Post Op Total Hip Replacement Instructions Dr. Lucas Jade [phone] ? Your dressing will be changed prior to your discharge. Your dressing should be changed again 5 days s/p discharge. Your incision was closed with dermabond, allow
[2021-01-10 19:12] LABS: Glucose Point of Care 120 mg/dl (65-105)
== END 2021-01-10 11:20 | DRG 522 ==
LOC: ANHED 11:37 → ANH2MED 11:47
PROVIDERS: Orthopaedic Surgery; Physician Assistant; Admitting Provider Family Medicine; Emergency Provider Emergency Medicine; PCP Internal Medicine; Visit Provider Family Medicine
PROC: 0SRS01A Replacement of Left Hip Joint, Femoral Surface with Metal Synthetic Substitute, Uncemented, Open Approach (ICD-10-PCS; CPT 27130; principal; 2021-01-07 11:00)
DX: S72.012A Unspecified intracapsular fracture of left femur, initial encounter for closed fracture (principal); W18.39XA Other fall on same level, initial encounter; I10 Essential (primary) hypertension; E11.9 Type 2 diabetes mellitus without complications; E78.5 Hyperlipidemia, unspecified; F41.9 Anxiety disorder, unspecified; Z79.4 Long term (current) use of insulin; Z79.899 Other long term (current) drug therapy; Z86.73 Personal history of transient ischemic attack (TIA), and cerebral infarction without residual deficits; Z87.891 Personal history of nicotine dependence
CPT/HCPCS: 36415; 51701; 71045; 73501; 73502; 80048; 80053; 80076; 81001; 82948; 83036; 85014; 85018; 85025; 85027; 85610; 85730; 86850; 86900; 86901; 93005; 96361; 96375; 96376; 97110; 97116; 97161; 97165; 97530; 97535; 99285; A9270; C1713; C1776; G0378; J0131; J0171; J0690; J1100; J1170; J1815; J2270; J2405; J2704; J2795; J3010; J7030; J7120

== ENCOUNTER 2021-04-15 20:44 | Observation (INO) | payer MEDICARE, MEDICAID, SELFPAY ==
--- NOTE | ~2021-04-15 | CT_ITS ---
EXAMINATION: CTA chest EXAM DATE: 04/16/2021 11:51 INDICATION: Aortic ectasia. TECHNIQUE: Spiral CT angiogram of the chest following intravenous injection of 100 mL Omnipaque 350. Axial, coronal and sagittal images of the chest were reviewed. Coronal maximum intensity pixel imag es of chest reviewed. Maximum intensity projection 3-D reconstructions of the aorta were created by holly sood technologist on dedicated workstation. The dose-length product (DLP) for this examination was 532 .09 mGy-cm. The exposure was tailored according to patient size (auto mA exposure control), and iter ative reconstruction (ASIR) was used as additional dose reduction technique. Correlation is made to [facility] x-ray 04/15/2021. FINDINGS: No central pulmonary emboli. The aortic root measures 4.0 cm. The ascending aorta measures 4.3 cm. There is mild plaque at the origin of the brachiocephalic artery. Some tortuosity of the tho racic aorta. Moderate amount of aortic atherosclerosis at the aortic hiatus. Celiac artery and superi or mesenteric artery are both widely patent. There is mild emphysema and hyperinflation. There are no pleural or pericardial effusions. Tracheo bronchial tree is patent. There is no mediastinal, hilar or axillary lymphadenopathy. There is no pneumothorax. Heart normal in size. There are dense coronary arteries, could be severe coronary arterial sclerosis and/or coronary artery stent(s), which are difficult to distinguish due to cardiac motion on this non-gated exam. Correlate with cardiac history and consider cardiology consult if not recently evaluated. Gallbladder partially imaged, appears distended and with some pericholecystic fluid between the gallb ladder and the liver. If there are any abdominal symptoms, consider right upper quadrant sonogram. Th ere is thoracic spondylosis without osteoblastic or osteolytic lesions identified. IMPRESSION: 1. Mildly dilated ascending aorta and aortic root. Aortic tortuosity. 2. Distended gallbladder with suspicion of pericholecystic fluid. Consider RUQ sonogram if clinicall y indicated. 3. Mild emphysema, hyperinflation. Reviewed, dictated and finalized at location A. IMPRESSION: 1. Mildly dilated ascending aorta and aortic root. Aortic tortuosity. 2. Distended gallbladder with suspicion of pericholecystic fluid. Consider RUQ sonogram if clinically indicated. 3. Mild emphysema, hyperinflation.
--- NOTE | ~2021-04-15 | XR_ITS ---
XR chest 2V DATE: 04/15/2021 21:20 INDICATION: Chest pain. Nausea, vomiting. TECHNIQUE: AP and lateral views COMPARISON: 01/06/2021 AP chest FINDINGS: Heart size is normal. Is aortic calcification, ectasia and tortuosity. No hilar or mediasti nal enlargement. There is mild atelectasis at the right lung base; otherwise no pulmonary infiltrate or consolidation, pleural effusion or pulmonary congestion or pneumothorax. Mild anterior wedging and loss of height at a lower thoracic vertebral body. Diffuse osteopenia. IMPRESSION: Mild atelectasis at the right lung base Aortic ectasia, calcification, tortuosity Reviewed, dictated and finalized at location A.
--- NOTE | 2021-04-15 20:45 | ECG_ITS ---
Measurements Intervals [place] Rate: 91 P: 34 [place]: 196 QRS: -37 QRSD: 84 T: 4 QT: 344 QTc: 425 Interpretive Statements SINUS RHYTHM LOW VOLTAGE- PRECORDIAL LEADS INFERIOR INFARCT, AGE INDETERMINATE ABNORMAL ECG Electronically Signed On 04-16-2021 5:44:54 CDT by Billy Celis D.O.
[2021-04-15 20:56] VITALS: BP 146/89; PULSE 92; RESP 18; TEMP 36.2; O2SAT 96
--- NOTE | 2021-04-15 20:56 | PC.NURSE ---
allowing daughter to sit with pt because of hx of dementia.
[2021-04-15 21:12] VITALS: BP 146/89; PULSE 92; TEMP 36.2; O2SAT 96
[2021-04-15 21:35] LABS: Basophils Percent Auto 0.4 % (0.2-1.2); Eosinophils Absolute Auto 0.4 K/mm3 (0-0.3); Eosinophils Percent Auto 4.1 % (0-4.4); Hematocrit 42.2 % (42.0-52.0); Hemoglobin 13.5 g/dL (14.0-18.0); Immature Granulocyte Absolute 0.02 K/mm3 (0.00-0.031); Immature Granulocyte Percent A 0.2 % (0-0.5); Lymphocytes Absolute Auto 1.31 K/mm3 (0.9-3.2); Lymphocytes Percent Auto 12.8 % (18.3-44.2); Mean Corpuscular Hemoglobin 28.1 pg (26-34); Mean Corpuscular Volume 87.9 fl (80-100); Mean Platelet Volume 9.4 fl (7.4-10.4); Monocytes Absolute Auto 0.8 K/mm3 (0.1-0.6); Monocytes Percent Auto 7.4 % (2.6-8.5); Neutrophils Absolute Auto 7.7 K/mm3 (1.3-6.7); Neutrophils Percent Auto 75.1 % (45.5-73.1); Platelet Count Result 295 k/mm3 (150-375); Red Cell Distribution Width 14.8 % (11.5-14.5); White Blood Count 10.2 K/mm3 (4.5-10.0)
[2021-04-15 21:54] LABS: INR 0.9
[2021-04-15 21:55] LABS: Partial Thromboplastin Time 28.1 SECONDS (22.3-36.8)
[2021-04-15 21:56] LABS: Troponin I < 0.012 ng/mL (0.000-0.034)
--- NOTE | 2021-04-15 22:30 | PC.NURSE ---
Pt daughter to the intake desk and asks how long is my dad going to have to wait in triage with chest pain? Explained that we are trying to get rooms open that we have ran tests on him while he is waiting. she states i just dont understand. he is in pain I apologized for the wait and stated that we can recheck his vital signs.
[2021-04-15 22:51] VITALS: BP 147/92; PULSE 94; O2SAT 97
[2021-04-16] VITALS (21 sets, daily range): BP systolic 119–169; BP diastolic 80–95; PULSE 69–99; RESP 12–20; TEMP 35.9–36.9; O2SAT 95–100; BMI 23.4
--- NOTE | 2021-04-16 00:19 | ED.GENADULT ---
HPI - General Adult General Chief complaint: Chest Pain Stated complaint: CP Time Seen by Provider: 04/15/21 23:38 Source: patient History of Present Illness HPI narrative: Patient is a 80 y/o male complaining mid sternal chest pain starting around 1:00 PM. He describes his pain as burning rates it as 10/10. There is no known alleviating or exacerbating factor. He tried to drink some boost which did not help. He had some vomiting. He states that he stuck a toothbrush down his throat to make himself vomit. He has no cough or SOB. Related Data Home Medications Medication Instructions Recorded Confirmed Levemir U-100 Insulin 12 unit SUBCUT HS 01/06/21 04/16/21 alprazolam [Xanax] 2 mg PO BID 01/06/21 04/16/21 glimepiride 2 mg PO DAILY 01/06/21 04/16/21 hydrocodone-acetaminophen 1 tablet PO Q6H PRN 01/06/21 04/16/21 lisinopril 10 mg PO DAILY 01/06/21 04/16/21 memantine 10 mg PO QPM 01/06/21 04/16/21 metformin 500 mg PO DAILY 01/06/21 04/16/21 simvastatin 80 mg PO DAILY 01/06/21 04/16/21 verapamil 180 mg PO DAILY 01/06/21 04/16/21 Allergies Allergy/AdvReac Type Severity Reaction Status Date / Time No Known Allergies Allergy Verified 04/16/21 02:20 Review of Systems Constitutional: Constitutional: Denies chills, Denies fever(s), Denies headache(s) and Denies weakness Eyes: Eyes: Denies blurry vision ENT: Denies headache(s) and Denies neck pain Cardiovascular: Cardiovascular: Reports chest pain and Denies dyspnea Respiratory: Respiratory: Denies cough and Denies dyspnea Gastrointestinal: Gastrointestinal: Denies abdominal pain, Denies diarrhea, Denies nausea and Denies vomiting Genitourinary: Genitourinary: Denies hematuria and Denies dysuria Musculoskeletal: Musculoskeletal: Denies back pain and Denies neck pain Neurologic: Denies headache(s) and Denies weakness [facility] Past Medical History Medical History (Updated 04/17/21 @ 10:16 by Jenn Finn MD) Anxiety Cerebrovascular accident (10/27/18) Chronic narcotic use Hyperlipidemia Hypertension Insulin dependent diabetes mellitus Stroke Surgical History Surgical History History of colostomy History of inguinal hernia repair Family History Family History (Updated 04/16/21 @ 02:34 by Joana Cortez RN) Mother Diabetes mellitus Congestive heart failure Father Cerebrovascular accident Daughter Cancer Social History Social History Social History: The patient lives in [place] with his daughter. Former smoker. No alcohol or illicit substance abuse. Kelly Fernandez, daughter, is his surrogate decision maker. Code status: Full code. 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 Gender identity (if verbalized by the patient): Male Spiritual care concerns: No Exam Const: General: no acute distress and well developed Orientation/consciousness: oriented to person, oriented to place, oriented to time and patient oriented x3 HENMT: Head: normocephalic Ears: external ears normal General nose exam: Normal external nose present Eyes: General: appearance normal, both eyes and all related structures Conjunctivae: conjunctivae normal Neck: Neck: normal visual inspection and full ROM Chest: Chest palpation & inspection: normal inspection of the chest and no tenderness Resp: Effort & Inspection: normal respiratory effort Auscultation: clear to auscultation bilaterally Cardio: Rate: regular rate Rhythm: regular rhythm GI: GI Palp: No abdominal tenderness and Yes Soft to palpation Skin: General skin exam: normal color and turgor normal Neuro: General: oriented to person, oriented to place, oriented to onel
[2021-04-16 01:13] LABS: Troponin I < 0.012 ng/mL (0.000-0.034)
[2021-04-16] MEDS: BELLADONNA ALK/PHENOB ELIX 10 ML, MAG HYDROX/ALUMINUM HYD/SIMETH 30 ML, LIDOCAINE HCL 2... PO ×2 (01:24→11:20)
[2021-04-16 01:36] LABS: Alanine Aminotransferase 11 U/L (4-50); Albumin Level 4.2 g/dL (3.5-5.1); Alkaline Phosphatase 75 U/L (38-126); Anion Gap 7 mmol/L (8-16); Aspartate Amino Transferase 21 U/L (17-59); Bilirubin,Total 0.4 mg/dL (0.2-1.3); Blood Urea Nitrogen 23 mg/dL (9-20); Calcium 8.8 mg/dL (8.4-10.2); Carbon Dioxide 23 mmol/L (22-30); Chloride 104 mmol/L (98-107); Estimated CRCL calculation 61 ml/min; Estimated Glomerular Filt Rate > 60; Glucose 140 mg/dL (65-110); Potassium 4.5 mmol/L (3.4-5.0); Sodium 134 mmol/L (137-145)
--- NOTE | 2021-04-16 02:18 | PC.NURSE ---
This patient, Vitaly Hatfield, was admitted to IMU Room 206-01 on 04/16/21 at 0200. Patient/family oriented to hospital policies and general routines including ID bracelet, bed and alarms, visiting hours, pain management, procedures, bathroom and other care routines, personal items, smoking policy, room service/diet, and visiting hours. Information on how to activate the Rapid Response Team has been discussed. Patient/Family are encouraged to report perceived risks to care and to ask questions if they do not understand what they are told or what they should do.
[2021-04-16 03:15] LABS: Troponin I < 0.012 ng/mL (0.000-0.034)
--- NOTE | 2021-04-16 09:57 | PM.IMHP ---
H&P: HPI History of Present Illness Date/Time: 04/16/21 09:57 Chief Complaint: Chest pain Narrative: 80-year-old male past medical history significant for diabetes, hypertension, dyslipidemia presenting with approximately 1 day of chest pain. Around 1:00 p.m. on , patient started feeling burning chest in the epigastric region up through his throat. He described it as a burning sensation, nonradiating. Importantly, stated it was not exertional. No associated shortness of breath. He did experience an episode nausea and dry heaving with some type vomit. Never happened to him before. No history of heart attacks. Past medical history: Diabetes high blood pressure, stroke x2, dyslipidemia allergies: Denies having had allergic reaction to medications in the past medications: Several including oral hypoglycemics blood pressure medications, cholesterol, aspirin family history: Not aware of any major health problems run in the family social history: No alcohol or drugs, brief smoking history about 20 [place] in his entire life surgeries: Colostomy bag more than a decade ago Review of Systems Review of Systems: All systems reviewed & are unremarkable except as noted in HPI and below PMFSH Past Medical History Medical History (Updated 04/16/21 @ 10:02 by Lyudmila Hill MD) Anxiety Cerebrovascular accident (10/27/18) Chronic narcotic use Hyperlipidemia Hypertension Insulin dependent diabetes mellitus Stroke Surgical History Surgical History History of colostomy History of inguinal hernia repair Family History Family History (Updated 04/16/21 @ 02:34 by Joana Cortez RN) Mother Diabetes mellitus Congestive heart failure Father Cerebrovascular accident Daughter Cancer Social History Social History Social History: The patient lives in [place] with his daughter. Former smoker. No alcohol or illicit substance abuse. Kelly Fernandez, daughter, is his surrogate decision maker. Code status: Full code. 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 Gender identity (if verbalized by the patient): Male Spiritual care concerns: No Meds Home Medications and Allergies Home Medications Medication Instructions Recorded Confirmed Type Levemir U-100 Insulin 12 unit SUBCUT HS 01/06/21 04/16/21 History alprazolam [Xanax] 2 mg PO BID 01/06/21 04/16/21 History glimepiride 2 mg PO DAILY 01/06/21 04/16/21 History hydrocodone-acetaminophen 1 tablet PO Q6H PRN 01/06/21 04/16/21 History lisinopril 10 mg PO DAILY 01/06/21 04/16/21 History memantine 10 mg PO QPM 01/06/21 04/16/21 History metformin 500 mg PO DAILY 01/06/21 04/16/21 History simvastatin 80 mg PO DAILY 01/06/21 04/16/21 History verapamil 180 mg PO DAILY 01/06/21 04/16/21 History acetaminophen [Mapap 650 mg PO Q6H PRN #60 tablet 01/09/21 04/16/21 Rx (acetaminophen)] aspirin 325 mg PO Q12HR #30 tablet 01/09/21 04/16/21 Rx docusate sodium 100 mg PO BID #60 cap 01/09/21 04/16/21 Rx famotidine 20 mg PO Q12HR #60 tablet 01/09/21 04/16/21 Rx Allergies Allergy/AdvReac Type Severity Reaction Status Date / Time No Known Allergies Allergy Verified 04/16/21 02:20 Vital Signs Vital Signs - 24 hr 04/15/21 20:56 04/15/21 21:12 04/15/21 22:51 Temperature 97.1 F L 97.1 F L Pulse Rate 92 92 94 Respiratory Rate 18 Blood Pressure 146/89 H 146/89 H 147/92 H Pulse Oximetry 96 96 97 04/16/21 00:13 04/16/21 00:39 04/16/21 01:30 Temperature Pulse Rate 93 96 Respiratory Rate 19 18 Blood Pressure 119/91 H 142/95 H Pulse Oximetry 98 98 100 04/16/21 02:03 04/16/21 02:50 04/16/21 03:41 Temperature 97.6
[2021-04-16] MEDS: PANTOPRAZOLE 40 MG TABLET PO ×2 (14:14→19:50)
[2021-04-16 14:20] LABS: Glucose Point of Care 117 mg/dl (65-105)
[2021-04-16 16:03] LABS: Glucose Point of Care 115 mg/dl (65-105)
[2021-04-16] MEDS: DOCUSATE SODIUM 100 MG CAPSULE PO (17:34)
[2021-04-16] MEDS: MEMANTINE 10 MG TABLET PO (17:34)
[2021-04-16 19:51] LABS: Glucose Point of Care 189 mg/dl (65-105)
[2021-04-16] MEDS: INSULIN DETEMIR 100 UNITS/ML 12 UNITS SUB-Q (21:20)
--- NOTE | 2021-04-16 22:44 | P.DS_ITS ---
DS: Admitting Diagnosis Admitting Diagnosis chest pain DS: Discharge Diagnosis Discharge Diagnosis (1) GERD (gastroesophageal reflux disease): Code(s): K21.9 - Gastro-esophageal reflux disease without esophagitis Status: Acute DS: Summary Hospital Course Hospital Course: 80 yo man with afib presenting with nonexertional chest pain. Troponins negative, and EKG not supportive of acute ischemia. Obtained CT angio which showed no PE, although patient does have tortuous aortic root of 4.0cm, which was discussed in detail with patient and he was instructed to follow up with serial imaging to ensure stability. Some concern on ct angio for pericholecystic fluid, but less likely to be clinically relevant given patient's symptoms of sporadic chest pain and benign abdominal exam. Symptoms resolved with GI cocktail and PPI, and so likely GI origin of chest pain. Also noted on telemetry that patient's heart rhythm was AFib, discussed with him, and he recalled having been told this in the past. Discussed pros and cons of anticoagulation, and he agreed to be on long-term therapy knowing risks, so star t him on blood thinner. Close f/up with pcp. Time Spent with Patient Time attestation: Total time spent providing and/or coordinating discharge services: Exam Const: General: no acute distress Neck: Neck: no JVD Resp: Effort & Inspection: normal respiratory effort Auscultation: clear to auscultation bilaterally Cardio: Rate: abnormal rate Rhythm: abnormal rhythm GI: GI Palp: Yes Soft to palpation and No Tenderness to palpation present (GI) Discharge Plan Discharge Attending physician on discharge: Lyudmila Hill Consulting providers: Vaughn Acharya ; Billy Celis ; Pedro Dillard Discharging Clinician: Lyudmila Hill Patient Disposition: Left Against Medical Advice Activity: no straining Diet: heart healthy, diabetic, low sodium and low fat Discharge Medications: New aspirin 81 mg Tablet,Delayed Release (Dr/Ec) 81 mg PO DAILY 30 Days Qty: 30 RF: 0 pantoprazole 40 mg Tablet,Delayed Release (Dr/Ec) 40 mg PO Q12HR 30 Days Qty: 60 RF: 0 Eliquis 5 mg tablet 5 mg PO BID 30 Days Qty: 60 RF: 0 Continued hydrocodone-acetaminophen 10-325 mg Tablet 1 tablet PO Q6H PRN (Reason: Pain) RF: 0 glimepiride 2 mg Tablet 2 mg PO DAILY RF: 0 alprazolam [Xanax] 2 mg Tablet 2 mg PO BID RF: 0 Levemir U-100 Insulin 100 unit/mL Solution 12 unit SUBCUT HS RF: 0 metformin 500 mg Tablet 500 mg PO DAILY RF: 0 simvastatin 80 mg Tablet 80 mg PO DAILY RF: 0 lisinopril 10 mg Tablet 10 mg PO DAILY RF: 0 memantine 10 mg Tablet 10 mg PO QPM RF: 0 docusate sodium 100 mg Capsule 100 mg PO BID Qty: 60 RF: 0 Discontinued verapamil 180 mg Tablet Extended Release 180 mg PO DAILY RF: 0 acetaminophen [Mapap (acetaminophen)] 325 mg Tablet 650 mg PO Q6H PRN (Reason: Mild Pain (1-3) Or Fever) Qty: 60 RF: 0 famotidine 20 mg Tablet 20 mg PO Q12HR Qty: 60 RF: 0 aspirin 325 mg Tablet,Delayed Release (Dr/Ec) 325 mg PO Q12HR Qty: 30 RF: 0 Date of admission: 04/16/21 00:56 Primary Care Provider: Kayleen,Ming Briceno Admitting Provider: Jaimie Ovalle Attending physician on admission: Lyudmila Hill Condition: Stable
[2021-04-17] VITALS (7 sets, daily range): BP systolic 134–145; BP diastolic 80–104; PULSE 79–103; RESP 12–18; TEMP 36.6–37.1; O2SAT 97–98
[2021-04-17 05:16] LABS: Basophils Absolute Auto 0.1 K/mm3 (0.0-0.1); Basophils Percent Auto 0.6 % (0.2-1.2); Eosinophils Absolute Auto 0.8 K/mm3 (0-0.3); Eosinophils Percent Auto 8.6 % (0-4.4); Hematocrit 41.5 % (42.0-52.0); Hemoglobin 13.4 g/dL (14.0-18.0); Immature Granulocyte Absolute 0.03 K/mm3 (0.00-0.031); Immature Granulocyte Percent A 0.3 % (0-0.5); Lymphocytes Absolute Auto 1.94 K/mm3 (0.9-3.2); Lymphocytes Percent Auto 21.6 % (18.3-44.2); Mean Corpuscular HGB Conc 32.3 g/dl (32-36); Mean Corpuscular Volume 86.8 fl (80-100); Mean Platelet Volume 9.6 fl (7.4-10.4); Monocytes Absolute Auto 0.6 K/mm3 (0.1-0.6); Neutrophils Absolute Auto 5.6 K/mm3 (1.3-6.7); Neutrophils Percent Auto 61.9 % (45.5-73.1); Platelet Count Result 277 k/mm3 (150-375); Red Blood Count 4.78 M/mm3 (4.6-6.20); Red Cell Distribution Width 14.7 % (11.5-14.5)
[2021-04-17 06:03] LABS: Alanine Aminotransferase 9 U/L (4-50); Alkaline Phosphatase 75 U/L (38-126); Anion Gap 10 mmol/L (8-16); Aspartate Amino Transferase 16 U/L (17-59); Bilirubin,Total 0.3 mg/dL (0.2-1.3); Blood Urea Nitrogen 15 mg/dL (9-20); Calcium 9.3 mg/dL (8.4-10.2); Carbon Dioxide 23 mmol/L (22-30); Chloride 99 mmol/L (98-107); Estimated CRCL calculation 61 ml/min; Estimated Glomerular Filt Rate > 60; Glucose 116 mg/dL (65-110); Phosphorus 3.6 mg/dL (2.5-4.5); Potassium 4.4 mmol/L (3.4-5.0); Sodium 132 mmol/L (137-145)
[2021-04-17 08:14] LABS: Glucose Point of Care 111 mg/dl (65-105)
[2021-04-17] MEDS: ASPIRIN 81 MG ENTERIC TABLET PO (08:42)
[2021-04-17] MEDS: PANTOPRAZOLE 40 MG TABLET PO (08:42)
[2021-04-17] MEDS: DOCUSATE SODIUM 100 MG CAPSULE PO (08:43)
[2021-04-17] MEDS: ENOXAPARIN 40 MG/0.4 ML SYRINGE SUB-Q (08:43)
[2021-04-17] MEDS: lisinopriL 10 MG TABLET PO (08:43)
[2021-04-17] MEDS: SIMVASTATIN 20 MG TABLET 80 MG PO (08:43)
[2021-04-17] MEDS: ALPRAZolam (*CRX) 0.5 MG TABLET 2 MG PO (09:01)
--- NOTE | 2021-04-17 12:11 | ECG_ITS ---
Measurements Intervals [place] Rate: 86 P: 25 [place]: 199 QRS: -40 QRSD: 94 T: 19 QT: 367 QTc: 439 Interpretive Statements SINUS RHYTHM VENTRICULAR PREMATURE COMPLEX INFERIOR INFARCT, AGE INDETERMINATE BASELINE WANDER- AVL ABNORMAL ECG Electronically Signed On 04-17-2021 12:33:10 CDT by Billy Celis D.O.
[2021-04-17 12:35] LABS: Glucose Point of Care 120 mg/dl (65-105)
--- NOTE | 2021-04-17 15:31 | PC.NURSE ---
MD spoke with patient about patient's AMA request. MD informed the patient that he recommends the patient stay another night. Patient declined and chose to sign out AMA.
--- NOTE | 2021-04-23 06:36 | PC.NURSE ---
Spoke with patient's daughter on Sunday 04/22 regarding meds not at the pharmacy. Questioning why father required Eliquis. I spoke to Dr. Hill. He called daughter and discussed with her. Dr. Hill called myself on afternoon of 04/22. Daughter on board with all new meds. Called [facility] pharmacy this morning at 0630 with scripts.
== END 2021-04-17 14:25 | disposition home or self-care (01) ==
LOC: ANHED 23:55 → ANHIMU 04-16 04:49
PROVIDERS: Emergency Medicine; Admitting Provider Internal Medicine; Emergency Provider Emergency Medicine; PCP Internal Medicine; Visit Provider Internal Medicine
DX: K21.9 Gastro-esophageal reflux disease without esophagitis (principal); R07.9 Chest pain, unspecified; E11.9 Type 2 diabetes mellitus without complications; E78.5 Hyperlipidemia, unspecified; I10 Essential (primary) hypertension; F41.9 Anxiety disorder, unspecified; Z79.4 Long term (current) use of insulin; Z87.891 Personal history of nicotine dependence; Z86.73 Personal history of transient ischemic attack (TIA), and cerebral infarction without residual deficits
CPT/HCPCS: 36415; 71046; 71275; 80053; 82948; 83735; 84100; 84484; 85025; 85610; 85730; 93005; 96372; 99285; A9270; G0378; J1650; J1815; Q9967

== ENCOUNTER 2022-06-18 12:57 | Inpatient (IN) | payer MEDICARE, MEDICAID, SELFPAY ==
[2022-06-18] VITALS (50 sets, daily range): BP systolic 87–121; BP diastolic 56–74; PULSE 52–65; RESP 12–25; TEMP 36.4–36.8; O2SAT 96–100; BMI 24.6; BMI 25.2
--- NOTE | ~2022-06-18 | US_ITS ---
US renal BI 06/19/2022 09:12 Procedure: Realtime transabdominal ultrasound of the kidneys and bladder. Indication: Acute renal failure Comparison: CT dated 06/18/2022 Findings: Renal echotexture is normal bilaterally without hydronephrosis, contour deforming mass or r enal calculus. There is a 3.9 cm left renal cyst. The right kidney measures 10.9 cm and left kidney m easures 13 cm. Bladder within normal limits. Incidental note is made of gallstones and gallbladder s ludge. Impression: 1: Left renal cyst measuring 3.9 cm. 2: Cholelithiasis with gallbladder sludge. Reviewed, dictated and finalized at location B. Impression: 1: Left renal cyst measuring 3.9 cm. 2: Cholelithiasis with gallbladder sludge.
--- NOTE | ~2022-06-18 | XR_ITS ---
XR chest 1V portable 06/18/2022 13:28 Indication: Weakness. Procedure: AP portable chest Comparison: 04/15/2021 Findings: Stable chronic right basilar infiltrates. Cardiomegaly. There is atherosclerosis and ectasi a of the aorta. There are calcified hilar and mediastinal lymph nodes. Mild elevation of the right di aphragm. Impression: 1: Right basilar infiltrates unchanged, likely atelectasis/scarring. Reviewed, dictated and finalized at location B. Impression: 1: Right basilar infiltrates unchanged, likely atelectasis/scarring.
--- NOTE | ~2022-06-18 | CT_ITS ---
EXAMINATION: CT abdomen pelvis wo con DATE: 06/18/2022 13:51 INDICATION: Abdomen pain. TECHNIQUE: Computed tomography (CT) of the abdomen and pelvis was performed without intravenous contr ast. The dose-length product was 751.63 mGy-cm. Automated exposure control and iterative reconstructi on technique were employed. COMPARISON: None. FINDINGS: There is a partial colectomy changes with left lower quadrant colostomy. There is a parasto mal hernia containing fat. No bowel obstruction. There is dependent atelectasis. Heart size normal. Small hiatal hernia. There are gallstones. The na er, spleen, pancreas, adrenal glands are unremarkable. There is a 4 cm left renal cyst. There are lo al arterial calcifications. There is infrarenal abdominal aortic aneurysm measuring 3.4 cm. No abnorm al pelvic masses or fluid collections. There is a left femoral bipolar hemiarthroplasty. There is mod erate osteoarthritis of the right hip. Moderate lumbar spondylosis. Mild superior endplate compressio n deformity of T11, likely chronic. IMPRESSION: 1. No acute abdominal abnormality. 2: Cholelithiasis. 3: Infrarenal abdominal aortic aneurysm measuring 3.4 cm. Reviewed, dictated and finalized at location B.
--- NOTE | 2022-06-18 13:11 | ECG_ITS ---
Measurements Intervals [place] Rate: 52 P: CT: 0 QRS: -16 QRSD: 82 T: 11 QT: 405 QTc: 378 Interpretive Statements POSSIBLE SINUS BRADYCARDIA WITH SINUS ARRHYTHMIA INFERIOR MYOCARDIAL INFARCTION , PROBABLY OLD [40+ ms Q WAVE AND/OR ST/T ABNORMALITY IN II/aVF] COMPARED TO ECG 04/17/2021 12:26:50 SINUS BRADYCARDIA NOW PRESENT Electronically Signed On 06-18-2022 14:41:18 CDT by Basilio Rahman M.D.
[2022-06-18 13:20] LABS: Basophils Absolute Auto 0.1 K/mm3 (0.0-0.1); Basophils Percent Auto 0.8 % (0.2-1.2); Eosinophils Absolute Auto 1.8 K/mm3 (0-0.3); Hematocrit 35.5 % (42.0-52.0); Hemoglobin 11.2 g/dL (14.0-18.0); Immature Granulocyte Absolute 0.01 K/mm3 (0.00-0.031); Immature Granulocyte Percent A 0.1 % (0-0.5); Mean Corpuscular HGB Conc 31.5 g/dl (32-36); Mean Corpuscular Hemoglobin 28.4 pg (26-34); Mean Corpuscular Volume 90.1 fl (80-100); Monocytes Absolute Auto 0.5 K/mm3 (0.1-0.6); Monocytes Percent Auto 6.8 % (2.6-8.5); Neutrophils Absolute Auto 3.6 K/mm3 (1.3-6.7); Neutrophils Percent Auto 46.3 % (45.5-73.1); Platelet Count Result 268 k/mm3 (150-375); Red Blood Count 3.94 M/mm3 (4.6-6.20); Red Cell Distribution Width 14.6 % (11.5-14.5); White Blood Count 7.8 K/mm3 (4.5-10.0)
--- NOTE | 2022-06-18 13:21 | ED.GENADULT ---
HPI - General Adult General Chief complaint: Recheck/Abnormal Lab/Rx Stated complaint: abnormal blood work Time Seen by Provider: 06/18/22 13:16 Source: RN notes reviewed History of Present Illness HPI narrative: Patient presents emergency department from home for abnormal lab work. Patient had a visit with his PCP yesterday for a routine PCP visit he had blood work done and was called and told to come to the ER because he had problems with his kidneys. Patient does not have the blood work with him he states he has been eating and drinking. He denies any fevers or chills he denies any abdominal pain nausea or vomiting or any other symptoms states he has had no recent illness patient does state that he had seen his web developer approximately 1 month ago for which she sees for AArnel choi and his blood pressures have been noted to be low at that time and they had elected to cut his blood pressure medication in half Related Data Home Medications Medication Instructions Recorded Confirmed alprazolam 2 mg tablet mg 06/18/22 apixaban 5 mg tablet (Eliquis) mg 06/18/22 glimepiride 2 mg tablet mg 06/18/22 hydrocodone 10 mg-acetaminophen tablet 06/18/22 325 mg tablet lisinopril 10 mg tablet mg 06/18/22 metformin 500 mg tablet mg 06/18/22 mupirocin 2 % topical ointment topical 06/18/22 pantoprazole 40 mg tablet,delayed mg PO 06/18/22 release simvastatin 80 mg tablet mg 06/18/22 tamsulosin 0.4 mg capsule mg PO 06/18/22 verapamil 180 mg tablet,extended mg PO 06/18/22 release Allergies Allergy/AdvReac Type Severity Reaction Status Date / Time No Known Allergies Allergy Verified 06/18/22 14:30 Review of Systems Review of Systems: Gen.: Denies fevers or chills ENT: Denies congestion Respiratory: Denies shortness of breath or cough CV: Denies chest pain or palpitations GI: Denies abdominal pain nausea, emesis or diarrhea d see HPI Musculoskeletal: Denies back pain or muscle pain Neuro: Denies numbness, tingling, weakness or focal weakness Skin: Denies rash Except as documented, all other systems reviewed and negative PMFSH Past Medical History Medical History Anxiety Cerebrovascular accident (03/07/19) Chronic narcotic use Hyperlipidemia Hypertension Insulin dependent diabetes mellitus Stroke Surgical History Surgical History History of colostomy History of inguinal hernia repair Family History Family History (Updated 04/16/21 @ 02:34 by Joana Cortez RN) Mother Diabetes mellitus Congestive heart failure Father Cerebrovascular accident Daughter Cancer Social History Social History Social History: The patient lives in [place] with his daughter. Former smoker. No alcohol or illicit substance abuse. Kelly Fernandez, daughter, is his surrogate decision maker. Code status: Full code. 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 CARDIOVASCULAR: Regular rate and rhythm without murmurs rubs or gallops. ABDOMINAL: Soft, nontender, nondistended, no rebound or guarding colostomy present with output : Circumcised male with mild erythema around foreskin several small wounds no drainage no paraphimosis no scrotal swelling or erythema MUSCULOSKELETAl: Moves all extremities. No clubbing, cyanosis or edema.
[2022-06-18 13:30] LABS: Alanine Aminotransferase 13 U/L (6-50); Albumin Level 4.5 g/dL (3.5-5.1); Alkaline Phosphatase 67 U/L (38-126); Anion Gap 14 mmol/L (8-16); Aspartate Amino Transferase 17 U/L (17-59); Bilirubin,Total 0.3 mg/dL (0.2-1.3); Blood Urea Nitrogen 56 mg/dL (9-20); Calcium 8.3 mg/dL (8.4-10.2); Carbon Dioxide 21 mmol/L (22-30); Chloride 99 mmol/L (98-107); Estimated CRCL calculation 21 ml/min; Estimated Glomerular Filt Rate 23; Glucose 139 mg/dL (65-110); Potassium 5.6 mmol/L (3.4-5.0); Sodium 134 mmol/L (137-145)
[2022-06-18] MEDS: SODIUM CHLORIDE 0.9% IV 1,000 ML 999 ML IV CONT ×2 (13:30→16:13)
[2022-06-18 13:56] LABS: Large Platelets Present; Platelet Estimate Adequate (Adequate); Poikilocytosis 1+ (NORMAL)
[2022-06-18 13:57] LABS: Schistocytes None Seen (NORMAL)
--- NOTE | 2022-06-18 14:24 | ECG_ITS ---
Measurements Intervals [place] Rate: 52 P: TN: 0 QRS: -18 QRSD: 78 T: 8 QT: 432 QTc: 402 Interpretive Statements ATRIAL FIBRILLATION WITH SLOW VENTRICULAR RESPONSE ABNORMAL RHYTHM ECG COMPARED TO ECG 06/18/2022 14:16:00 ATRIAL FIBRILLATION NOW PRESENT Electronically Signed On 06-18-2022 14:42:08 CDT by Basilio Rahman M.D.
[2022-06-18 14:36] LABS: SARS-CoV-2 RNA PCR Negative
[2022-06-18 15:57] LABS: Add Urine Microscopic? YES; Appearance Urine Cloudy (Clear); Bilirubin Urine Negative (Negative); Blood Urine Negative (Negative); Color Urine Yellow (Yellow); Glucose Urine UA Negative (Negative); Ketones Urine Negative (Negative); Leukocyte Esterase Ur Negative LEU/UL (Negative); Nitrate Urine Negative (Negative); Protein Urine Negative (Negative); RBC Urine 0-2 /hpf (0-2); Specific Grav Ur 1.018 (1.001-1.035); Squamous Epithelial Cell Urine Rare /hpf (Few); Urobilinogen Urine Negative mg/dL (<2.0); WBC Urine 0-3 /hpf
[2022-06-18 16:52] LABS: Lactic Acid Reflex 1.3 mmol/L (0.7-2.0)
[2022-06-18 16:57] LABS: Anion Gap 12 mmol/L (8-16); Blood Urea Nitrogen 55 mg/dL (9-20); Calcium 7.5 mg/dL (8.4-10.2); Carbon Dioxide 22 mmol/L (22-30); Chloride 102 mmol/L (98-107); Estimated CRCL calculation 21 ml/min; Estimated Glomerular Filt Rate 23; Glucose 84 mg/dL (65-110); Potassium 5.2 mmol/L (3.4-5.0); Sodium 136 mmol/L (137-145)
[2022-06-18] MEDS: SODIUM CHLORIDE 0.9% IV 1,000 ML 100 ML IV CONT (18:33)
--- NOTE | 2022-06-18 18:59 | PM.IMHP ---
H&P: HPI History of Present Illness Date/Time: 06/18/22 18:59 Chief Complaint: Abdominal labs Narrative: This is a 81-year-old male patient who resides with his daughter. The patient came to the emergency room today because of abnormal labs. The patient went to his primary care doctor's office yesterday and had some blood work completed and today his doctor's office told him to come to the emergency room because he had some abnormal labs with his kidneys. The patient does not have any blood work with him. You drinking okay and he denies any fever chills. The patient saw his service writer approximately 1 week ago due to his AFib. His blood pressures have been low and he elected to cut his blood pressure medication in half. IV fluids were started in the emergency room. His H&H is 9.2 and 35.5. His potassium was initially 5.6 and came down to 5.2. Sodium was 134 and is now 136. BUN remains at 55 and creatinine 2.7. The last renal function test we have was from last year. And that was normal. Calcium is low at 7.5. COVID test is negative. Abdominal pelvis CT was read as no acute abdominal abnormality. Cholelithiasis. Infrarenal abdominal aortic aneurysm measuring 3.4 cm. Chest x-ray was read as right basilar infiltrates unchanged likely atelectasis/scarring The patient is being admitted for observation status on the date of service of 06/18/2022. Review of Systems Review of Systems: See HPI All systems reviewed & are unremarkable except as noted in HPI and below Constitutional: Constitutional: Reports as per HPI and Reports no additional constitutional complaints Eyes: Eyes: Reports as per HPI and Reports no additional eye complaints ENT: Reports system reviewed and no additional complaints, except as documented and Reports Normal hearing present Cardiovascular: Cardiovascular: Reports no additional cardiovascular complaints Respiratory: Respiratory: Reports no additional respiratory complaints and Reports no additional respiratory complaints Gastrointestinal: Gastrointestinal: Reports as per HPI and Reports no additional gastrointestinal complaints Musculoskeletal: Musculoskeletal: Reports no additional musculoskeletal complaints Integumentary/Breasts: Skin/Breast: Reports system reviewed and no additional complaints, except as docu and Reports as per HPI Neurologic: Reports system reviewed and no additional complaints, except as documented, Reports as per HPI and Reports Normal hearing present Psychiatric: Psychiatric: Reports no additional psychiatric complaints and Reports as per HPI Endocrine: Endocrine: Reports no additional endocrine complaints Hematologic/Lymphatic: Hematologic/Lymphatic: Reports no additional hematologic/lymphatic complaints Allergic/Immunologic: Allergic/Immunologic: Reports no additional allergic/immunologic complaints [facility] Past Medical History Medical History (Updated 06/18/22 @ 22:21 by Cady Low NP) Anxiety BPH (benign prostatic hyperplasia) Cerebrovascular accident (10/27/18) Chest pain Chest pain Chronic narcotic use Dementia History of stroke Hyperlipidemia Hypertension Insulin dependent diabetes mellitus Stroke Surgical History Surgical History (Updated 06/18/22 @ 22:21 by Cady Low NP) Hip joint replacement status History of colostomy History of inguinal hernia repair S/P hip hemiarthroplasty Family History Family History Mother Diabetes mellitus Congestive heart failure Father Cerebrovascular accident Daughter Cancer Social History Social History (Updated 06/18/22 @ 22:19 by Cady oLw NP) Social History: The patient lives in [place] with his daughter Kelly who is his durable power contract attorney for healthcare. He is a Former smoker. No alcohol or illicit substance abuse. Kelly Fernandez, daughter, is his surrogate decision maker. 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
--- NOTE | 2022-06-18 22:08 | ADMGEN ---
This patient, Vitaly Hatfield, was admitted to IMU Room 205-02. Patient/family oriented to hospital policies and general routines including ID bracelet, bed and alarms, visiting hours, pain management, procedures, bathroom and other care routines, personal items, smoking policy, room service/diet, and visiting hours. Information on how to activate the Rapid Response Team has been discussed. Patient/Family are encouraged to report perceived risks to care and to ask questions if they do not understand what they are told or what they should do.
[2022-06-18 22:45] LABS: Glucose Point of Care 148 mg/dl (65-105)
[2022-06-18 23:21] LABS: Anion Gap 9 mmol/L (8-16); Blood Urea Nitrogen 54 mg/dL (9-20); Calcium 7.4 mg/dL (8.4-10.2); Carbon Dioxide 22 mmol/L (22-30); Chloride 102 mmol/L (98-107); Estimated CRCL calculation 22 ml/min; Estimated Glomerular Filt Rate 24; Glucose 130 mg/dL (65-110); Potassium 5.4 mmol/L (3.4-5.0); Sodium 133 mmol/L (137-145)
[2022-06-18 23:31] LABS: Hemoglobin A1C 6.3 % (<5.7)
[2022-06-19] VITALS (14 sets, daily range): BP systolic 116–156; BP diastolic 50–85; PULSE 59–103; RESP 18–20; TEMP 36.2–36.6; O2SAT 92–100
[2022-06-19] MEDS: SODIUM CHLORIDE 0.9% IV 1,000 ML 100 ML IV CONT ×2 (04:48→15:08)
[2022-06-19 05:04] LABS: Basophils Percent Auto 0.4 % (0.2-1.2); Eosinophils Absolute Auto 1.6 K/mm3 (0-0.3); Eosinophils Percent Auto 22.8 % (0-4.4); Hematocrit 32.8 % (42.0-52.0); Hemoglobin 10.4 g/dL (14.0-18.0); Immature Granulocyte Absolute 0.01 K/mm3 (0.00-0.031); Immature Granulocyte Percent A 0.1 % (0-0.5); Lymphocytes Absolute Auto 1.34 K/mm3 (0.9-3.2); Lymphocytes Percent Auto 18.9 % (18.3-44.2); Mean Corpuscular HGB Conc 31.7 g/dl (32-36); Mean Corpuscular Hemoglobin 28.2 pg (26-34); Mean Corpuscular Volume 88.9 fl (80-100); Mean Platelet Volume 10.6 fl (7.4-10.4); Monocytes Absolute Auto 0.5 K/mm3 (0.1-0.6); Monocytes Percent Auto 6.6 % (2.6-8.5); Neutrophils Absolute Auto 3.6 K/mm3 (1.3-6.7); Neutrophils Percent Auto 51.2 % (45.5-73.1); Platelet Count Result 241 k/mm3 (150-375); Red Blood Count 3.69 M/mm3 (4.6-6.20); Red Cell Distribution Width 14.6 % (11.5-14.5); White Blood Count 7.1 K/mm3 (4.5-10.0)
[2022-06-19 05:19] LABS: Alanine Aminotransferase 9 U/L (6-50); Albumin Level 3.6 g/dL (3.5-5.1); Alkaline Phosphatase 46 U/L (38-126); Anion Gap 9 mmol/L (8-16); Aspartate Amino Transferase 15 U/L (17-59); Bilirubin,Total 0.4 mg/dL (0.2-1.3); Blood Urea Nitrogen 51 mg/dL (9-20); Calcium 7.6 mg/dL (8.4-10.2); Carbon Dioxide 20 mmol/L (22-30); Chloride 107 mmol/L (98-107); Estimated CRCL calculation 23 ml/min; Estimated Glomerular Filt Rate 25; Glucose 77 mg/dL (65-110); Magnesium 1.8 mg/dL (1.6-2.3); Potassium 6.3 mmol/L (3.4-5.0); Sodium 136 mmol/L (137-145)
[2022-06-19] MEDS: INSULIN HUMAN REGULAR (*BKC) 100 UNITS/ML 10 UNITS IV PUSH (07:01)
[2022-06-19] MEDS: DEXTROSE 50% 25 GM/50 ML SYRINGE IV PUSH (07:01)
[2022-06-19] MEDS: SODIUM ZIRCONIUM CYCLOSILICATE 10 GM POWD.PACK PO (07:01)
[2022-06-19] MEDS: SODIUM BICARBONATE 8.4% 50 MEQ/50 ML SYRINGE IV PUSH (07:01)
[2022-06-19 09:13] LABS: Glucose Point of Care 66 mg/dl (65-105)
[2022-06-19 09:13] LABS: Glucose Point of Care 66 mg/dl (65-105)
[2022-06-19] MEDS: GLUCOSE ORAL GEL 15 GM OF GLUCSE IN 37.5 GM TUBE PO (09:22)
[2022-06-19] MEDS: TAMSULOSIN HCL 0.4 MG CAPSULE PO (09:22)
[2022-06-19] MEDS: PANTOPRAZOLE 40 MG TABLET PO (09:23)
[2022-06-19] MEDS: SIMVASTATIN 20 MG TABLET 80 MG PO (09:23)
[2022-06-19] MEDS: ALPRAZolam (*CRX) 0.5 MG TABLET 2 MG PO ×2 (09:27→17:38)
[2022-06-19 09:45] LABS: Glucose Point of Care 81 mg/dl (65-105)
--- NOTE | 2022-06-19 10:32 | PM.CNNEP ---
Assessment and Plan Assessment and plan (1) Acute renal failure: Code(s): N17.9 - Acute kidney failure, unspecified Status: Acute Assessment and Plan: the patient has acute kidney injury. He has a normal baseline creatinine of 0.9. Urinalysis is bland renal sonogram shows a left simple renal cyst. Otherwise normal. Etiology of the renal insufficiency is unclear. Possibly he has not been eating very well and is a little bit dehydrated. His blood pressure was low in the emergency room last night consistent with this thought. Possibly 1 of the new medications he started was lisinopril or Verapamil. Maybe this led to the low blood pressure in this is what caused his renal function to drop. the patient has a bland UA so I doubt if this is glomerulonephritis. Interstitial nephritis Is a possibility as well because he does have 22% eosinophils. He does not have a rash. Verapamil and pantoprazole can both cause this. He is now on both of those medications. I am going to stop both of them. His blood pressure is a little bit low anyway so we do not need the Verapamil and we can start Pepcid instead of pantoprazole. To further evaluate this will get urine electrolytes. He is already getting IV fluids. (2) Acute hyperkalemia: Code(s): E87.5 - Hyperkalemia Status: Acute Assessment and Plan: His potassium was high this morning. He was given bicarb insulin glucose and lokelma to get the potassium down. Will repeat the potassium soon. He is going on a low-potassium diet (3) Hyponatremia: Code(s): E87.1 - Hypo-osmolality and hyponatremia Status: Acute Assessment and Plan: sodium is slightly low. This is due to the renal failure. Will watch this as he gets fluids. (4) Metabolic acidosis: Code(s): E87.20 - Acidosis, unspecified Status: Acute Assessment and Plan: CO2 is slightly lower. This may be due to hydration. He has a normal anion gap. (5) GERD (gastroesophageal reflux disease): Code(s): K21.9 - Gastro-esophageal reflux disease without esophagitis Status: Acute Assessment and Plan: The patient is on pantoprazole. Will stop this and switch to Pepcid. (6) Hyperlipidemia: Code(s): E78.5 - Hyperlipidemia, unspecified Status: Chronic Assessment and Plan: He is on simvastatin. (7) Hypertension: Code(s): I10 - Essential (primary) hypertension Status: Chronic Assessment and Plan: His blood pressure is on the low side now. He is off his antihypertensives. (8) Insulin dependent diabetes mellitus: Status: Chronic Assessment and Plan: on Accu-Cheks and sliding-scale insulin History of Present Illness Reason for Consult Consult date: 06/19/22 Chief Complaint Chief complaint: Acute renal failure, hyperkalemia History of Present Illness Narrative: Vitaly is a very pleasant 81-year-old gentleman who has multiple medical problems including dementia, hypertension, hyperlipidemia, stroke, chest pain, diabetes, anxiety, BPH. The patient came in the hospital because of abnormal labs. He went to see his PCP yesterday. He does not remember why he went to see have but labs were drawn and his creatinine was elevated. In the ER the patient was evaluated and labs were repeated and found to be abnormal as well. He was given some medicine for the high potassium and given some IV fluids for the high creatinine and admitted to the hospital. This morning his creatinine is a little bit better but his potassium is higher so he was given more medicines for the potassium. He had a chest x-ray which showed a right basilar infiltrate which was unchanged from before. He has an infrarenal abdominal aortic aneurysm which showed up on a CT scan but otherwise the CT scan was negative. His urinalysis was bland. The patient does not remember feeling bad in the last week or s
[2022-06-19] MEDS: ASPIRIN 81 MG ENTERIC TABLET PO ×2 (10:54→20:19)
[2022-06-19] MEDS: APIXABAN 2.5 MG TABLET PO ×2 (10:54→17:38)
[2022-06-19 11:46] LABS: Creatine Kinase 55 U/L (55-170); Potassium 5.4 mmol/L (3.4-5.0)
[2022-06-19 12:20] LABS: Glucose Point of Care 128 mg/dl (65-105)
--- NOTE | 2022-06-19 13:32 | PM.IMPN ---
Progress Note: A&P Assessment and Plan (1) Acute renal failure: Code(s): N17.9 - Acute kidney failure, unspecified Status: Acute Assessment and Plan: Creatinine 2.7 on admission. Normal baseline 1 year ago. Urinalysis is essentially normal. Urine electrolytes ordered. Renal ultrasound shows left renal cyst measuring 3.9 cm but no hydronephrosis. Etiology unclear but could be related to dehydration or for medications. Consider also ATN given the low blood pressure on admission. Lisinopril was held. He was started on IV fluids. Creatinine slightly better today 2.5. Nephrology has been consulted appreciate their input. (2) Acute hyperkalemia: Code(s): E87.5 - Hyperkalemia Status: Acute Assessment and Plan: Potassium elevated on admission and actually increased to 6.3 this morning. He was treated appropriately in potassium has trended downward since. Most likely related to the ARTURO and medications. Lisinopril has been held. Not on potassium replacement. Will switch him to a low-potassium diet. (3) Atrial fibrillation: Code(s): I48.91 - Unspecified atrial fibrillation Status: Acute Assessment and Plan: Patient with chronic atrial fibrillation. Heart rate well controlled at this time. Will hold verapamil given the bradycardia hypotension. Continue Eliquis. Will decrease dose given his renal failure (4) Anxiety: Code(s): F41.9 - Anxiety disorder, unspecified Status: Chronic Assessment and Plan: Mood stable. Continue with alprazolam (5) Hyperlipidemia: Code(s): E78.5 - Hyperlipidemia, unspecified Status: Chronic Assessment and Plan: LFTs normal. Continue with simvastatin (6) Hypertension: Code(s): I10 - Essential (primary) hypertension Status: Chronic Assessment and Plan: BP soft on admission. Will hold verapamil. Hx of Afib. Monitor heart rate on tele. (7) Insulin dependent diabetes mellitus: Status: Chronic Assessment and Plan: A1c 6.3. The patient's blood glucose was reviewed on 06/19 Glucose remains well controlled. Continue AccuCheks covering with sliding scale. Hypoglycemia protocol available as needed. Will hold lantus and resume at lower dose if glucose climbs (8) BPH (benign prostatic hyperplasia): Code(s): N40.0 - Benign prostatic hyperplasia without lower urinary tract symptoms Status: Acute Assessment and Plan: Stable. Continue with tamsulosin. Bayron has a topical treatment for his glands. (9) Dementia: Code(s): F03.90 - Unspecified dementia, unspecified severity, without behavioral disturbance, psychotic disturbance, mood disturbance, and anxiety Status: Acute Assessment and Plan: Bayron has hx of dementia but not on any medication for dementia. Follow Subjective Date/time seen: 06/19/22 13:32 Interval history: 81yo male with cAFib, DM and HTN here for abnormal labs with ARTURO. Patient is alert but mildly confused. He states he slept poorly due to frequent nocturia. He does not have urinary frequency during the day. He denies any pedal edema. He complains pain around his glans. He had a circumcision about 1 year ago and it has never really healed. He is being followed by urology for this. Exam Narrative: AF 97.3 116/71 75 20 98% ra Gen - NARD Chest - CTA bilaterally, nml RR CV - RRR S1/S2 Abd - Soft, NT/ND, Positive BS. colostomy noted in LLQ - circumcised. glands with adhered old blood, thickened foreskin Ext - No pedal edema Neuro - Alert and oriented. Nonfocal exam. Psych - Nml mood and affect Skin - Warm and dry Objective Data Vital Signs Vital Signs: Vital Signs - 24 hr 06/18/22 14:16 06/18/22 14:45 06/18/22 16:13 Temperature Pulse Rate 57 L 56 L 55 L Respiratory Rate 25 H 14 16 Blood Pressure 91/64 L 92/64 L 88/60 L Pulse Oximetry 96 96 Oxygen Del
[2022-06-19 14:15] LABS: Creatinine Urine 14.7 mg/dL; Total Protein Urine Random 15 mg/dL; Ur Ttl Prot Creatinine Ratio 1.02 mg/mg (0-0.20)
[2022-06-19 14:18] LABS: Sodium Urine Random 83 meq/L
[2022-06-19 17:36] LABS: Glucose Point of Care 166 mg/dl (65-105)
[2022-06-19 19:18] LABS: Potassium 5.2 mmol/L (3.4-5.0)
[2022-06-19 20:10] LABS: Glucose Point of Care 136 mg/dl (65-105)
[2022-06-19] MEDS: FAMOTIDINE 20 MG TABLET PO (20:20)
[2022-06-20] VITALS (14 sets, daily range): BP systolic 119–156; BP diastolic 67–93; PULSE 58–85; RESP 16–24; TEMP 36.3–37; O2SAT 97–100
[2022-06-20] MEDS: SODIUM CHLORIDE 0.9% IV 1,000 ML 100 ML IV CONT ×3 (01:42→21:15)
[2022-06-20 05:15] LABS: Albumin Level 3.8 g/dL (3.5-5.1); Anion Gap 12 mmol/L (8-16); Blood Urea Nitrogen 36 mg/dL (9-20); Carbon Dioxide 22 mmol/L (22-30); Chloride 106 mmol/L (98-107); Estimated CRCL calculation 29 ml/min; Estimated Glomerular Filt Rate 34; Glucose 117 mg/dL (65-110); Phosphorus 2.9 mg/dL (2.5-4.5); Potassium 5.2 mmol/L (3.4-5.0); Sodium 140 mmol/L (137-145)
[2022-06-20 07:55] LABS: Glucose Point of Care 107 mg/dl (65-105)
--- NOTE | 2022-06-20 10:01 | PM.PNNEP ---
Progress Note: A&P Assessment and Plan (1) Acute renal failure: Code(s): N17.9 - Acute kidney failure, unspecified Status: Acute Assessment and Plan: the patient has acute kidney injury. He has a normal baseline creatinine of 0.9. Urinalysis is bland urine electrolytes are non pre renal renal sonogram shows a left simple renal cyst. Otherwise normal. CPK is normal most likely the renal insufficiency is due to low blood pressure. He also has 22% eosinophils. Has no rash. It is unclear what is causing this. He was on verapamil and pantoprazole. We discontinued both of these. The creatinine got better so quickly I think it is more likely a hemodynamic improvement, i.e. the blood pressure, that has resulted in the better creatinine today. Continue with the current medications and IV fluids. (2) Acute hyperkalemia: Code(s): E87.5 - Hyperkalemia Status: Acute Assessment and Plan: His potassium Is still slightly high. Will check again tomorrow (3) Hyponatremia: Code(s): E87.1 - Hypo-osmolality and hyponatremia Status: Acute Assessment and Plan: this is resolved (4) Metabolic acidosis: Code(s): E87.20 - Acidosis, unspecified Status: Acute Assessment and Plan: this is resolved (5) GERD (gastroesophageal reflux disease): Code(s): K21.9 - Gastro-esophageal reflux disease without esophagitis Status: Acute Assessment and Plan: The patient is on Pepcid. (6) Hyperlipidemia: Code(s): E78.5 - Hyperlipidemia, unspecified Status: Chronic Assessment and Plan: He is on simvastatin. (7) Hypertension: Code(s): I10 - Essential (primary) hypertension Status: Chronic Assessment and Plan: His blood pressure is better. He is off his antihypertensives. (8) Insulin dependent diabetes mellitus: Status: Chronic Assessment and Plan: on Accu-Cheks and sliding-scale insulin Subjective Date/time seen: 06/20/22 10:01 Interval history: Vitaly is feeling a little better. Blood pressure is a little higher. He made some urine yesterday. Review of Systems Cardiovascular: Cardiovascular: Reports no additional cardiovascular complaints Respiratory: Respiratory: Reports no additional respiratory complaints Gastrointestinal: Gastrointestinal: Reports no additional gastrointestinal complaints Genitourinary: Genitourinary: Reports no additional male genitourinary complaints Exam Narrative: WDWN in NAD skin no rash head ncat lungs clear cor reg no rub abd BS+ nontender and soft . Colostomy present ext no edema. Objective Data Vital Signs Vital Signs: Vital Signs - 24 hr 06/19/22 12:00 06/19/22 12:00 06/19/22 14:00 Temperature 36.3 C L Pulse Rate 75 70 83 Respiratory Rate 20 Blood Pressure 116/71 Pulse Oximetry 98 Oxygen Delivery 06/19/22 12:00 06/19/22 16:00 06/19/22 16:00 Temperature 36.4 C L Pulse Rate 78 88 88 Respiratory Rate 20 20 Blood Pressure 149/77 H Pulse Oximetry 98 100 100 Oxygen Delivery Room Air Room Air 06/19/22 17:30 06/19/22 16:00 06/19/22 18:00 Temperature Pulse Rate 74 90 89 Respiratory Rate 18 Blood Pressure 118/50 L Pulse Oximetry 92 Oxygen Delivery 06/19/22 20:00 06/19/22 23:55 06/19/22 20:00 Temperature 36.6 C 36.6 C Pulse Rate 100 80 Respiratory Rate 18 20 Blood Pressure 156/85 H 144/80 H Pulse Oximetry 100 99 Oxygen Delivery Room Air 06/20/22 00:00 06/19/22 20:00 06/19/22 22:00 Temperature Pulse Rate 103 H 78 Respiratory Rate Blood Pressure Pulse Oximetry Oxygen Delivery Room Air 06/20/22 00:00 06/20/22 02:00 06/20/22 04:00 Temperature 36.8 C Pulse Rate 77 78 77 Respiratory Rate 18 Blood Pressure 143/72 H Pulse Oximetry 99 Oxygen Delivery 06/20/22 04:00 06/20/22 04:00 06/20/22 06:00 Temperature Puls
[2022-06-20] MEDS: TAMSULOSIN HCL 0.4 MG CAPSULE PO (10:47)
[2022-06-20] MEDS: SIMVASTATIN 20 MG TABLET 80 MG PO (10:47)
[2022-06-20] MEDS: ASPIRIN 81 MG ENTERIC TABLET PO ×2 (10:49→20:21)
[2022-06-20] MEDS: APIXABAN 2.5 MG TABLET PO ×2 (10:49→18:03)
[2022-06-20] MEDS: PANTOPRAZOLE 40 MG TABLET PO (10:49)
[2022-06-20] MEDS: FAMOTIDINE 20 MG TABLET PO ×2 (10:49→20:21)
[2022-06-20] MEDS: METOPROLOL TARTRATE 12.5 MG TABLET PO ×2 (10:49→20:21)
[2022-06-20] MEDS: ALPRAZolam (*CRX) 0.5 MG TABLET 2 MG PO ×2 (10:51→18:03)
[2022-06-20 12:36] LABS: Glucose Point of Care 175 mg/dl (65-105)
--- NOTE | 2022-06-20 15:06 | PM.IMPN ---
Progress Note: A&P Assessment and Plan (1) Acute renal failure: Code(s): N17.9 - Acute kidney failure, unspecified Status: Acute Assessment and Plan: Creatinine 2.7 on admission. Normal baseline 1 year ago. Urinalysis is essentially normal. Urine electrolytes ordered. Renal ultrasound shows left renal cyst measuring 3.9 cm but no hydronephrosis. Etiology unclear but could be related to dehydration or from medications. Elevated eosinophils noted so consider AIN. Consider also ATN given the low blood pressure on admission. Lisinopril was held. He was started on IV fluids. Creatinine better at 1.9. Nephrology has been consulted and appreciate their input. (2) Acute hyperkalemia: Code(s): E87.5 - Hyperkalemia Status: Acute Assessment and Plan: Potassium elevated on admission and actually increased to 6.3. He was treated appropriately and potassium has trended downward since. Most likely related to the ARTURO and medications. Lisinopril held. Not on potassium replacement. Continue low-potassium diet. (3) Atrial fibrillation: Code(s): I48.91 - Unspecified atrial fibrillation Status: Acute Assessment and Plan: Patient with intermittent atrial fibrillation. Heart rate well controlled at this time. Will hold verapamil given the bradycardia and hypotension. Continue Eliquis. (4) Anxiety: Code(s): F41.9 - Anxiety disorder, unspecified Status: Chronic Assessment and Plan: Mood stable. Continue with alprazolam (5) Hyperlipidemia: Code(s): E78.5 - Hyperlipidemia, unspecified Status: Chronic Assessment and Plan: LFTs normal. Continue with simvastatin (6) Hypertension: Code(s): I10 - Essential (primary) hypertension Status: Chronic Assessment and Plan: BP soft on admission. Holding verapamil. Hx of Afib. Monitor heart rate on tele. (7) Insulin dependent diabetes mellitus: Status: Chronic Assessment and Plan: A1c 6.3. The patient's blood glucose was reviewed on 06/20 Glucose remains well controlled. Continue AccuCheks covering with sliding scale. Hypoglycemia protocol available as needed. Continue to hold Lantus and resume at lower dose if glucose climbs (8) BPH (benign prostatic hyperplasia): Code(s): N40.0 - Benign prostatic hyperplasia without lower urinary tract symptoms Status: Acute Assessment and Plan: Stable. Continue with tamsulosin. Patient has a topical treatment for his glands. Check Post void residual. Urology consult if he is having urine retention. (9) Dementia: Code(s): F03.90 - Unspecified dementia, unspecified severity, without behavioral disturbance, psychotic disturbance, mood disturbance, and anxiety Status: Acute Assessment and Plan: Patient has hx of dementia but not on any medication for dementia. Follow. (10) Eosinophilia: Code(s): D72.10 - Eosinophilia, unspecified Status: Acute Assessment and Plan: Eosinophilia noted. No obvious evidence of neoplasm. Consider autoimmune or parasitic. Will check stool O&P. Subjective Date/time seen: 06/20/22 15:06 Interval history: 81yo male with cAFib, DM and HTN here for abnormal labs with ARTURO. She feels well today. No problems overnight. He denies any chest pain shortness of breath or palpitations. He does have difficulty voiding and has to manually manipulate his penis to void. Exam Narrative: AF 98.6 138/81 67 24 100% ra Gen - NARD Chest - CTA bilaterally, nml RR CV - RRR S1/S2 Abd - Soft, NT/ND, Positive BS. colostomy noted in LLQ Ext - No pedal edema Psych - Nml mood and affect Skin - Warm and dry. irritative red rash noted under his colostomy bag Objective Data Vital Signs Vital Signs: Vital Signs - 24 hr 06/19/22 16:00 06/19/22 16:00 06/19/22 17:30 Temperature 97.5 F L Pulse Rate 88 88 74 Respir
[2022-06-20 17:04] LABS: Glucose Point of Care 97 mg/dl (65-105)
[2022-06-20 18:27] LABS: Potassium 4.4 mmol/L (3.4-5.0)
[2022-06-20 19:18] LABS: Eosinophil Urine None Seen % (None Seen)
[2022-06-20 19:56] LABS: Glucose Point of Care 151 mg/dl (65-105)
[2022-06-21] VITALS (13 sets, daily range): BP systolic 130–162; BP diastolic 82–88; PULSE 55–78; RESP 12–20; TEMP 36.4–36.6; O2SAT 96–100
[2022-06-21 05:02] LABS: Basophils Percent Auto 0.6 % (0.2-1.2); Eosinophils Absolute Auto 1.3 K/mm3 (0-0.3); Eosinophils Percent Auto 20.5 % (0-4.4); Hematocrit 31.1 % (42.0-52.0); Immature Granulocyte Absolute 0.01 K/mm3 (0.00-0.031); Immature Granulocyte Percent A 0.2 % (0-0.5); Lymphocytes Absolute Auto 1.52 K/mm3 (0.9-3.2); Lymphocytes Percent Auto 23.3 % (18.3-44.2); Mean Corpuscular HGB Conc 32.2 g/dl (32-36); Mean Corpuscular Hemoglobin 27.9 pg (26-34); Mean Corpuscular Volume 86.9 fl (80-100); Mean Platelet Volume 9.8 fl (7.4-10.4); Monocytes Absolute Auto 0.5 K/mm3 (0.1-0.6); Monocytes Percent Auto 8.3 % (2.6-8.5); Neutrophils Absolute Auto 3.1 K/mm3 (1.3-6.7); Neutrophils Percent Auto 47.1 % (45.5-73.1); Platelet Count Result 237 k/mm3 (150-375); Red Blood Count 3.58 M/mm3 (4.6-6.20); Red Cell Distribution Width 14.3 % (11.5-14.5); White Blood Count 6.5 K/mm3 (4.5-10.0)
[2022-06-21 05:17] LABS: Albumin Level 3.6 g/dL (3.5-5.1); Anion Gap 13 mmol/L (8-16); Blood Urea Nitrogen 27 mg/dL (9-20); Calcium 8.1 mg/dL (8.4-10.2); Carbon Dioxide 21 mmol/L (22-30); Chloride 106 mmol/L (98-107); Estimated CRCL calculation 29 ml/min; Estimated Glomerular Filt Rate 34; Glucose 132 mg/dL (65-110); Magnesium 1.4 mg/dL (1.6-2.3); Phosphorus 3.3 mg/dL (2.5-4.5); Potassium 4.7 mmol/L (3.4-5.0); Sodium 140 mmol/L (137-145)
[2022-06-21] MEDS: SODIUM CHLORIDE 0.9% IV 1,000 ML 100 ML IV CONT ×2 (06:30→15:37)
[2022-06-21 07:51] LABS: Glucose Point of Care 122 mg/dl (65-105)
[2022-06-21] MEDS: MAGNESIUM SULF 2 GM/WATER 50ML 2 GM/50 ML BAG IVPB (09:56)
[2022-06-21] MEDS: PANTOPRAZOLE 40 MG TABLET PO (09:57)
[2022-06-21] MEDS: ALPRAZolam (*CRX) 0.5 MG TABLET 2 MG PO ×2 (09:57→17:28)
[2022-06-21] MEDS: SIMVASTATIN 20 MG TABLET 80 MG PO (09:57)
[2022-06-21] MEDS: METOPROLOL TARTRATE 12.5 MG TABLET PO ×2 (09:58→21:30)
[2022-06-21] MEDS: ASPIRIN 81 MG ENTERIC TABLET PO ×2 (10:07→21:33)
[2022-06-21] MEDS: APIXABAN 2.5 MG TABLET PO ×2 (10:07→17:28)
[2022-06-21] MEDS: TAMSULOSIN HCL 0.4 MG CAPSULE PO (10:08)
[2022-06-21] MEDS: FAMOTIDINE 20 MG TABLET PO ×2 (10:08→21:33)
[2022-06-21 12:19] LABS: Glucose Point of Care 179 mg/dl (65-105)
--- NOTE | 2022-06-21 12:19 | PM.PNNEP ---
Progress Note: A&P Assessment and Plan (1) Acute renal failure: Code(s): N17.9 - Acute kidney failure, unspecified Status: Acute Assessment and Plan: the patient has acute kidney injury. He has a normal baseline creatinine of 0.9. Urinalysis is bland urine electrolytes are non pre renal renal sonogram shows a left simple renal cyst. Otherwise normal. CPK is normal most likely the renal insufficiency is due to low blood pressure. He also has 22% eosinophils. this could be pre renal issues or allergic interstitial nephritis. He is off the offending agents. Continue with the current medications and IV fluids. (2) Acute hyperkalemia: Code(s): E87.5 - Hyperkalemia Status: Acute Assessment and Plan: Resolved (3) Hyponatremia: Code(s): E87.1 - Hypo-osmolality and hyponatremia Status: Acute Assessment and Plan: this is resolved (4) Metabolic acidosis: Code(s): E87.20 - Acidosis, unspecified Status: Acute Assessment and Plan: this is resolved (5) GERD (gastroesophageal reflux disease): Code(s): K21.9 - Gastro-esophageal reflux disease without esophagitis Status: Acute Assessment and Plan: The patient is on Pepcid. no symptoms (6) Hyperlipidemia: Code(s): E78.5 - Hyperlipidemia, unspecified Status: Chronic Assessment and Plan: He is on simvastatin. (7) Hypertension: Code(s): I10 - Essential (primary) hypertension Status: Chronic Assessment and Plan: His blood pressure is better. He is off his antihypertensives. (8) Insulin dependent diabetes mellitus: Status: Chronic Assessment and Plan: on Accu-Cheks and sliding-scale insulin Subjective Date/time seen: 06/21/22 12:19 Interval history: Vitaly is feeling a little better. no chest pain or shortness of breath. Belly okay. Exam Narrative: WDWN in NAD skin no rash head ncat lungs clear bilaterally cor reg no rub abd BS+ nontender and soft . Colostomy present ext no edema or cyanosis Objective Data Vital Signs Vital Signs: Vital Signs - 24 hr 06/20/22 16:00 06/20/22 16:00 06/20/22 14:00 Temperature 36.3 C L Pulse Rate 58 L 67 Respiratory Rate 20 Blood Pressure 156/81 H Pulse Oximetry 100 Oxygen Delivery Room Air 06/20/22 16:00 06/20/22 18:00 06/20/22 20:00 Temperature 36.6 C Pulse Rate 66 77 63 Respiratory Rate 16 Blood Pressure 131/69 Pulse Oximetry 100 Oxygen Delivery 06/20/22 20:21 06/20/22 20:00 06/20/22 20:00 Temperature Pulse Rate 63 64 Respiratory Rate Blood Pressure Pulse Oximetry Oxygen Delivery Room Air 06/20/22 22:00 06/20/22 23:55 06/21/22 00:00 Temperature 36.8 C Pulse Rate 61 77 74 Respiratory Rate 18 Blood Pressure 119/67 Pulse Oximetry 97 Oxygen Delivery 06/21/22 00:00 06/21/22 02:00 06/21/22 04:00 Temperature 36.6 C Pulse Rate 62 62 Respiratory Rate 16 Blood Pressure 130/86 Pulse Oximetry 97 Oxygen Delivery Room Air 06/21/22 04:00 06/21/22 04:00 06/21/22 06:00 Temperature Pulse Rate 62 61 Respiratory Rate Blood Pressure Pulse Oximetry Oxygen Delivery Room Air 06/21/22 08:00 06/21/22 09:58 Temperature 36.5 C Pulse Rate 56 L 78 Respiratory Rate 12 Blood Pressure 162/82 H Pulse Oximetry 99 Oxygen Delivery Intake/Output Intake/Output: Intake & Output 06/18/22 06/19/22 06/20/22 06/21/22 23:59 23:59 23:59 23:59 Intake Total 1999 2920 4270 1440 Output Total 3425 2701 600 Balance 1999 -505 1569 840 Meds/Results Medications: Active Medications Generic Name Dose Route Start Last Admin Trade Name Freq PRN Reason Stop Dose Admin Hydrocodone Bitart/Acetaminophen 1 tab 06/19/22 00:51 Hydrocodone/Acetaminophen (*Crx) 10-325 Mg Tablet PO Q8H PRN Breakthrough Pain, Severe Alprazolam 2 mg 1
--- NOTE | 2022-06-21 16:06 | PM.IMPN ---
Progress Note: A&P Assessment and Plan (1) Acute renal failure: Code(s): N17.9 - Acute kidney failure, unspecified Status: Acute Assessment and Plan: Creatinine 2.7 on admission. Normal baseline 1 year ago. Urinalysis is essentially normal. Urine electrolytes ordered. Renal ultrasound shows left renal cyst measuring 3.9 cm but no hydronephrosis. Etiology unclear but could be related to dehydration and/or from medications. Elevated eosinophils noted so consider AIN (urine eos negative). Consider also ATN given the low blood pressure on admission. Lisinopril and verapamil held. He was started on IV fluids. Creatinine better at 1.9 and now stable. UOP was 2.9L. Nephrology has been consulted and appreciate their input. (2) Acute hyperkalemia: Code(s): E87.5 - Hyperkalemia Status: Acute Assessment and Plan: Potassium elevated on admission and actually increased to 6.3. He was treated appropriately and potassium has trended downward since. Most likely related to the ARTURO and medications. Lisinopril held. Not on potassium replacement. Continue low-potassium diet. (3) Atrial fibrillation: Code(s): I48.91 - Unspecified atrial fibrillation Status: Acute Assessment and Plan: Patient with intermittent atrial fibrillation. Heart rate well controlled at this time. Will hold verapamil given the bradycardia and hypotension. BP better so low dose metoprolol added and appears to be toelrating this well. Continue Metoprolol and Eliquis. (4) Insulin dependent diabetes mellitus: Status: Chronic Assessment and Plan: A1c 6.3. The patient's blood glucose was reviewed on 06/21 Glucose remains well controlled and under 180. Continue AccuCheks covering with sliding scale. Hypoglycemia protocol available as needed. Continue to hold Lantus and resume at lower dose if glucose climbs (5) Eosinophilia: Code(s): D72.10 - Eosinophilia, unspecified Status: Acute Assessment and Plan: Eosinophilia noted. No obvious evidence of neoplasm. Consider autoimmune or parasitic. Stool O&P ordered. (6) Hypertension: Code(s): I10 - Essential (primary) hypertension Status: Chronic Assessment and Plan: BP soft on admission. Holding verapamil and lisinopril. Hx of Afib. Tolerating low dose metoprolol. Monitor heart rate on tele. (7) BPH (benign prostatic hyperplasia): Code(s): N40.0 - Benign prostatic hyperplasia without lower urinary tract symptoms Status: Acute Assessment and Plan: Stable. Continue with tamsulosin. Post void residual zero. Urology consult if he is having urine retention. (8) Dementia: Code(s): F03.90 - Unspecified dementia, unspecified severity, without behavioral disturbance, psychotic disturbance, mood disturbance, and anxiety Status: Acute Assessment and Plan: Patient has hx of dementia but not on any medication for dementia. Follow. (9) Hyperlipidemia: Code(s): E78.5 - Hyperlipidemia, unspecified Status: Chronic Assessment and Plan: LFTs normal. Continue with simvastatin (10) Anxiety: Code(s): F41.9 - Anxiety disorder, unspecified Status: Chronic Assessment and Plan: Mood stable. Continue with alprazolam Subjective Date/time seen: 06/21/22 16:06 Interval history: 81yo male with cAFib, DM and HTN here for abnormal labs with ARTURO. Slept well. He has not been out of bed except to stand to void. Eating okay. No chest pain shortness of breath. He is voiding well. Strong stream. Does complain of rash in his groin. Exam Narrative: AF 97.8 137/88 59 20 96% ra Gen - NARD Chest - CTA bilaterally, nml RR CV - RRR S1/S2. Tele showing no significant dysrhythmias Abd - Soft, NT/ND, Positive BS. colostomy noted in LLQ Ext - No pedal edema Psych - Nml mood and affect Skin - Warm and dry. irritative red rash n
[2022-06-21 16:41] LABS: Glucose Point of Care 156 mg/dl (65-105)
[2022-06-21] MEDS: MICONAZOLE NITRATE 2% CREAM 30 GM TUBE 1 APPLIC TOPICAL (21:30)
[2022-06-21 22:58] LABS: Glucose Point of Care 153 mg/dl (65-105)
[2022-06-22] VITALS: PULSE 73
[2022-06-22] MEDS: SODIUM CHLORIDE 0.9% IV 1,000 ML 100 ML IV CONT ×2 (02:18→13:28)
[2022-06-22 04:00] VITALS: PULSE 71
[2022-06-22 05:56] VITALS: BP 158/87; PULSE 63; RESP 18; TEMP 36.7; O2SAT 99
[2022-06-22 06:41] LABS: Basophils Percent Auto 0.5 % (0.2-1.2); Eosinophils Absolute Auto 1.5 K/mm3 (0-0.3); Eosinophils Percent Auto 19.6 % (0-4.4); Hematocrit 34.9 % (42.0-52.0); Hemoglobin 11.3 g/dL (14.0-18.0); Immature Granulocyte Absolute 0.02 K/mm3 (0.00-0.031); Immature Granulocyte Percent A 0.3 % (0-0.5); Lymphocytes Absolute Auto 1.05 K/mm3 (0.9-3.2); Lymphocytes Percent Auto 13.5 % (18.3-44.2); Mean Corpuscular HGB Conc 32.4 g/dl (32-36); Mean Corpuscular Hemoglobin 28.6 pg (26-34); Mean Corpuscular Volume 88.4 fl (80-100); Mean Platelet Volume 10.4 fl (7.4-10.4); Monocytes Absolute Auto 0.4 K/mm3 (0.1-0.6); Monocytes Percent Auto 5.6 % (2.6-8.5); Neutrophils Absolute Auto 4.7 K/mm3 (1.3-6.7); Neutrophils Percent Auto 60.5 % (45.5-73.1); Platelet Count Result 253 k/mm3 (150-375); Red Blood Count 3.95 M/mm3 (4.6-6.20); Red Cell Distribution Width 14.4 % (11.5-14.5); White Blood Count 7.8 K/mm3 (4.5-10.0)
[2022-06-22 06:53] LABS: Albumin Level 4.2 g/dL (3.5-5.1); Anion Gap 12 mmol/L (8-16); Blood Urea Nitrogen 20 mg/dL (9-20); Calcium 8.4 mg/dL (8.4-10.2); Carbon Dioxide 22 mmol/L (22-30); Chloride 108 mmol/L (98-107); Estimated CRCL calculation 33 ml/min; Estimated Glomerular Filt Rate 39; Glucose 139 mg/dL (65-110); Magnesium 1.7 mg/dL (1.6-2.3); Potassium 4.2 mmol/L (3.4-5.0); Sodium 142 mmol/L (137-145)
[2022-06-22 08:00] VITALS: PULSE 57
[2022-06-22 08:36] LABS: Glucose Point of Care 119 mg/dl (65-105)
[2022-06-22] MEDS: APIXABAN 2.5 MG TABLET PO (08:56)
[2022-06-22] MEDS: ASPIRIN 81 MG ENTERIC TABLET PO (08:56)
[2022-06-22] MEDS: FAMOTIDINE 20 MG TABLET PO (08:56)
[2022-06-22] MEDS: SIMVASTATIN 20 MG TABLET 80 MG PO (08:57)
[2022-06-22] MEDS: TAMSULOSIN HCL 0.4 MG CAPSULE PO (08:57)
[2022-06-22] MEDS: MICONAZOLE NITRATE 2% CREAM 30 GM TUBE 1 APPLIC TOPICAL (08:58)
[2022-06-22] MEDS: ALPRAZolam (*CRX) 0.5 MG TABLET 2 MG PO (10:14)
[2022-06-22 12:18] LABS: Glucose Point of Care 120 mg/dl (65-105)
--- NOTE | 2022-06-22 12:30 | PM.PNNEP ---
Progress Note: A&P Assessment and Plan (1) Acute renal failure: Code(s): N17.9 - Acute kidney failure, unspecified Status: Acute Assessment and Plan: the patient has acute kidney injury. He has a normal baseline creatinine of 0.9. Urinalysis is bland urine electrolytes are non pre renal renal sonogram shows a left simple renal cyst. Otherwise normal. CPK is normal most likely the renal insufficiency is due to low blood pressure. He also has 22% eosinophils. Will check a cortisol level. this could be pre renal issues or allergic interstitial nephritis. He is off the offending agents. his creatinine continues to improve. It is down to 1.7 today. (2) GERD (gastroesophageal reflux disease): Code(s): K21.9 - Gastro-esophageal reflux disease without esophagitis Status: Acute Assessment and Plan: The patient is on Pepcid. no symptoms (3) Hyperlipidemia: Code(s): E78.5 - Hyperlipidemia, unspecified Status: Chronic Assessment and Plan: He is on simvastatin. (4) Hypertension: Code(s): I10 - Essential (primary) hypertension Status: Chronic Assessment and Plan: His blood pressure is better. He is off his antihypertensives. (5) Insulin dependent diabetes mellitus: Status: Chronic Assessment and Plan: on Accu-Cheks and sliding-scale insulin per hospitalist Subjective Date/time seen: 06/22/22 12:30 Interval history: Vitaly is feeling a little better. Eating better. No chest pain or shortness of breath Exam Narrative: WDWN in NAD skin no rash or subcu nodules head ncat lungs clear bilaterally cor reg no rub or gallop abd BS+ nontender and soft . Colostomy present ext no edema or cyanosis Objective Data Vital Signs Vital Signs: Vital Signs - 24 hr 06/21/22 14:00 06/21/22 16:00 06/21/22 16:00 Temperature 36.6 C Pulse Rate 58 L 60 72 Respiratory Rate 20 Blood Pressure 156/83 H Pulse Oximetry 100 Oxygen Delivery 06/21/22 21:30 06/21/22 21:56 06/21/22 20:00 Temperature 36.4 C Pulse Rate 60 60 Respiratory Rate 18 Blood Pressure 152/88 H Pulse Oximetry 100 Oxygen Delivery Room Air 06/21/22 23:06 06/22/22 00:00 06/22/22 04:00 Temperature Pulse Rate 71 73 71 Respiratory Rate Blood Pressure Pulse Oximetry Oxygen Delivery 06/22/22 05:56 06/22/22 08:00 06/22/22 08:00 Temperature 36.7 C Pulse Rate 63 57 L Respiratory Rate 18 Blood Pressure 158/87 H Pulse Oximetry 99 Oxygen Delivery Room Air Intake/Output Intake/Output: Intake & Output 06/19/22 06/20/22 06/21/22 06/22/22 23:59 23:59 23:59 23:59 Intake Total 2920 4270 3330 1000 Output Total 3425 2701 1750 2200 Balance -505 1569 1580 -1200 Meds/Results Medications: Active Medications Generic Name Dose Route Start Last Admin Trade Name Freq PRN Reason Stop Dose Admin Hydrocodone Bitart/Acetaminophen 1 tab 06/19/22 00:51 Hydrocodone/Acetaminophen (*Crx) 10-325 Mg Tablet PO Q8H PRN Breakthrough Pain, Severe Alprazolam 2 mg 06/19/22 09:00 06/22/22 10:14 Alprazolam (*Crx) 0.5 Mg Tablet PO 2 mg BID ROBY Administration Apixaban 2.5 mg 06/19/22 09:00 06/22/22 08:56 Apixaban 2.5 Mg Tablet PO 2.5 mg BID ROBY Administration Aspirin 81 mg 06/19/22 09:00 06/22/22 08:56 Aspirin 81 Mg Enteric Tablet PO 81 mg Q12HR ROBY Administration Dextrose 12.5 gm 06/18/22 22:12 Dextrose 50% 25 Gm/50 Ml Syringe IV PUSH PRN PRN Hypoglycemia Protocol Docusate Sodium 100 mg 06/19/22 00:51 Docusate Sodium 100 Mg Capsule PO DAILY PRN Constipation Famotidine 20 mg 06/19/22 21:00 06/22/22 08:56 Famotidine 20 Mg Tablet PO 20 mg Q12HR ROBY Administration Glucagon 1 mg 06/18/22 22:12 Glucagon For Inj 1 Mg Vial IM PRN PRN Hypoglycemia Protocol Glucose 15 gm 06/18/22
[2022-06-22 14:00] VITALS: BP 150/82; PULSE 60; RESP 16; TEMP 36.6; O2SAT 99
--- NOTE | 2022-06-22 15:41 | PM.DS ---
DS: Admitting Diagnosis Discharge Date 06/22/22 Admitting Diagnosis Abnormal labs with ARTURO DS: Discharge Diagnosis Discharge Diagnosis (1) Acute renal failure: Code(s): N17.9 - Acute kidney failure, unspecified Status: Acute (2) Acute hyperkalemia: Code(s): E87.5 - Hyperkalemia Status: Acute (3) Eosinophilia: Code(s): D72.10 - Eosinophilia, unspecified Status: Acute (4) Atrial fibrillation: Code(s): I48.91 - Unspecified atrial fibrillation Status: Acute (5) Insulin dependent diabetes mellitus: Status: Chronic (6) Hypertension: Code(s): I10 - Essential (primary) hypertension Status: Chronic (7) BPH (benign prostatic hyperplasia): Code(s): N40.0 - Benign prostatic hyperplasia without lower urinary tract symptoms Status: Acute (8) Dementia: Code(s): F03.90 - Unspecified dementia, unspecified severity, without behavioral disturbance, psychotic disturbance, mood disturbance, and anxiety Status: Acute (9) Hyperlipidemia: Code(s): E78.5 - Hyperlipidemia, unspecified Status: Chronic (10) Anxiety: Code(s): F41.9 - Anxiety disorder, unspecified Status: Chronic DS: Summary Hospital Course Reason for hospitalization: 81yo male with cAFib, DM and HTN here for abnormal labs with ARTURO. Please see H&P for details Hospital Course: Creatinine 2.7 on admission.? Normal baseline 1 year ago.? Urinalysis is essentially normal.? Urine electrolytes ordered.? Renal ultrasound shows left renal cyst measuring 3.9 cm but no hydronephrosis.? Etiology unclear but could be related to dehydration and/or from medications.? Elevated eosinophils noted so consider AIN (urine eos negative). Consider also ATN given the low blood pressure on admission.? Lisinopril and verapamil held.? He was started on IV fluids.? Creatinine better at 1.7 today. Nephrology was consulted and appreciate their input. Potassium elevated on admission and actually increased to 6.3.? He was treated appropriately and potassium has trended to normal.? Most likely related to the ARTURO and medications. Patient with intermittent atrial fibrillation. Heart rate well controlled at this time. We held verapamil given the bradycardia and hypotension. BP better so low dose metoprolol added and appears to be tolerating this well. We continued Eliquis at lower dose.?Eosinophilia noted at about 20%. No obvious evidence of neoplasm. Consider autoimmune or parasitic. Stool O&P ordered. Patient had clinical improvement. Voiding normally with good stream. He overall did well and was able to be discharged on 06/22/22 Status at Discharge Cognitive/behavioral status at discharge: Stable Time Spent with Patient Time attestation: Total time spent providing and/or coordinating discharge services: 35 minutes Time spent: Greater than 30 minutes Exam Narrative: AF 97.8 150/82 60 16 99% ra Gen - NARD lying flat Chest - CTA bilaterally, nml RR CV - RRR S1/S2. Tele showing NSR with sinus arrhythmia Abd - Soft, NT/ND, Positive BS. colostomy noted in LLQ Ext - No pedal edema Psych - Nml mood and affect Skin - Warm and dry. red rash noted under his colostomy bag and in his groin possibly tinea DS: Data Data Completed and Pending Labs on day of discharge: Labs from last 24 hours 06/22/22 06/22/22 06/22/22 13:06 12:14 08:23 WBC RBC Hgb Hct MCV MCH MCHC RDW Plt Count MPV Immature Gran % (Auto) Neut % (Auto) Lymph % (Auto) [place] % (Auto) Eos % (Auto) Baso % (Auto) Lymph # (Auto) [place] # (Auto) Eos # (Auto) Baso # (Auto) Abs Immat Gran (auto) Absolute Neuts (auto) Absolute Nucleated RBC Nucleated RBC % Sodium Potassium Chloride Carbon Dioxide Anion Gap BUN Creatinine Estim Creat Clear Calc Estimated GFR Glucose POC Capillary Glucose 120 H 119
--- NOTE | 2022-07-01 10:43 | PC.NURSE ---
STool negative for Ova and Parasites. Dr. Ibarra aware of findings.
== END 2022-06-22 16:55 | disposition home or self-care (01) | DRG 683 ==
LOC: ANHED 18:07 → ANHIMU 21:32 → ANH2MED 06-21 18:43
PROVIDERS: Internal Medicine Nephrology; Nurse Practitioner; Admitting Provider Internal Medicine; Emergency Provider Emergency Medicine; PCP Internal Medicine; Visit Provider Internal Medicine
DX: N17.9 Acute kidney failure, unspecified (principal); E87.1 Hypo-osmolality and hyponatremia; I48.20 Chronic atrial fibrillation, unspecified; E87.20 Acidosis, unspecified; Z20.822 Contact with and (suspected) exposure to COVID-19; E87.5 Hyperkalemia; E86.0 Dehydration; I10 Essential (primary) hypertension; N40.0 Benign prostatic hyperplasia without lower urinary tract symptoms; E11.9 Type 2 diabetes mellitus without complications; F03.90 Unspecified dementia, unspecified severity, without behavioral disturbance, psychotic disturbance, mood disturbance, and anxiety; E78.5 Hyperlipidemia, unspecified; F41.9 Anxiety disorder, unspecified; R00.1 Bradycardia, unspecified; K21.9 Gastro-esophageal reflux disease without esophagitis; D72.10 Eosinophilia, unspecified; I95.9 Hypotension, unspecified; N28.1 Cyst of kidney, acquired; Z86.73 Personal history of transient ischemic attack (TIA), and cerebral infarction without residual deficits
CPT/HCPCS: 36415; 71045; 74176; 76775; 80048; 80053; 80069; 81001; 82533; 82550; 82570; 82948; 83036; 83605; 83735; 84132; 84156; 84300; 84443; 85025; 85999; 87177; 87209; 93005; 96361; 96374; 96375; 99291; A9270; G0378; J1815; J3475; J7030; U0003; U0005

== ENCOUNTER 2022-07-31 12:54 | Inpatient (IN) | payer MEDICARE, MEDICAID, SELFPAY ==
[2022-07-31] VITALS (20 sets, daily range): BP systolic 128–172; BP diastolic 82–106; PULSE 75–105; RESP 12–23; TEMP 36.6–38.8; O2SAT 94–98; BMI 23.6
--- NOTE | ~2022-07-31 | CT_ITS ---
EXAMINATION: CT brain wo con DATE: 07/31/2022 14:08 INDICATION: Altered mental status TECHNIQUE: Computed tomography (CT) of the head was performed without intravenous contrast. The dose- length product was 681.00 mGy-cm. Automated exposure control and iterative reconstruction technique w ere employed. COMPARISON: None FINDINGS: There is intracranial atherosclerosis. There is mild generalized brain parenchymal volume l oss. There are scattered mild periventricular and subcortical white matter changes, most likely relat ed to small vessel ischemic disease (microangiopathy). No acute infarction, hemorrhage, mass or mass effect. Paranasal sinuses and mastoids are pneumatized. No depressed skull fractures. IMPRESSION: 1. No acute intracranial abnormality. 2: Chronic age-related findings. Reviewed, dictated and finalized at location A. ENT CURATOR
--- NOTE | ~2022-07-31 | XR_ITS ---
Clinical Indication: Pneumonia AP and lateral views of the chest: Comparison: 07/31/2022 Findings: Stable linear right basilar scarring. The lungs are otherwise clear, without evidence of fo adelaide consolidation or pleural effusion. Calcified right hilar/right paratracheal lymph nodes are prese nt. Cardiomediastinal silhouette is within normal limits. Bones and soft tissues are unremarkable. Impression: Stable linear right basilar scarring, otherwise clear lungs. Calcified right hilar/right paratracheal lymph nodes. Reviewed, dictated and finalized at location M. DE SALES PROFESSIONAL Impression: Stable linear right basilar scarring, otherwise clear lungs. Calcified right hilar/right paratracheal lymph nodes.
--- NOTE | ~2022-07-31 | XR_ITS ---
XR chest 1V portable 07/31/2022 14:11 Indication: Sinus tachycardia. PVCs. Procedure: AP portable chest Comparison: Comparison to multiple prior studies sequentially, with oldest reviewed study dated 01/18. Findings: Heart size normal. There is atherosclerosis and ectasia of the aorta. There is right basila r airspace disease which may represent atelectasis or pneumonia. No significant change compared with 06/18/2022. Impression: 1: Stable right basilar infiltrates which may represent atelectasis or pneumonia. Reviewed, dictated and finalized at location A. PER OPERATOR Impression: 1: Stable right basilar infiltrates which may represent atelectasis or pneumoni a.
--- NOTE | ~2022-07-31 | MR_ITS ---
EXAMINATION: MR brain/brain stem wo/w con DATE: 08/01/2022 11:33 INDICATION: Transient alteration of awareness concerning for stroke. TECHNIQUE: Magnetic resonance imaging (MRI) of the brain and brainstem was performed without and with 16 mL Multihance intravenous contrast. Sequences included sagittal and axial T1-weighted SE, axial d iffusion-weighted FS SE, axial T2*-weighted GRE, axial T2-weighted FLAIR, and axial T2-weighted FSE. Postcontrast axial, sagittal and coronal T1-weighted SE was obtained. Apparent diffusion coefficient (ADC) maps were created. COMPARISON: Head CT dated 07/31/2022 FINDINGS: There are no areas of restricted diffusion to suggest acute infarction. Small focus of encephalomalac ia in the posterior right frontal lobe consistent with chronic infarct.. No intracranial hemorrhage o r abnormal intracranial mass lesion. There are scattered areas of nonspecific increased T2-weighted s ignal intensity in the cerebral and cerebellar white matter, predominantly involving the deep and per iventricular white matter. There are no intraparenchymal signal abnormalities seen on the other pulse sequences. Symmetric prominence of the sulci and ventricles consistent with moderate age-appropriate diffuse cerebral volume loss. There are no abnormal extra-axial fluid collections. Flow voids are se en in the cerebral arteries on the T2-weighted sequences consistent with their expected patency. Franklin ges of bilateral intraocular lens replacement. Trace bilateral mastoid effusions. There are no areas of abnormal enhancement on the post contrast images. IMPRESSION: 1. No acute intracranial process. 2. 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 3. Age-related changes including moderate diffuse volume loss and moderate scattered cerebral and cer ebellar white matter hypoattenuation consistent with chronic small vessel ischemic disease. Reviewed, dictated and finalized at location A. C EDUCATION DIRECTOR IMPRESSION: 1. No acute intracranial process. 2. 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 3. 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
[2022-07-31 13:11] LABS: Glucose Point of Care 236 mg/dl (65-105)
--- NOTE | 2022-07-31 13:12 | ED.AMS ---
HPI - Altered Mental Status General Chief Complaint: Altered Mental Status Stated Complaint: AMS Time Seen by Provider: 07/31/22 12:57 History of Present Illness HPI narrative: Pt is an 81 yo M w/ history of htn, hld, diabetes, afib on eliquis, TIAs presenting with AMS. Last known well is approximately 5 hours ago around 8 am. At this time, family noticed he was more confused than normal. Baseline is A&Ox4 and today he is oriented only to self. EMS was called and noted a left sided facial droop but no other deficits. On arrival, pt is alert but confused. Denies any pain. States he is cold. Related Data Home Medications Medication Instructions Recorded Confirmed alprazolam 2 mg tablet 2 mg PO Q12H 06/18/22 07/31/22 hydrocodone 10 mg-acetaminophen 1 tablet PO Q8H PRN Breakthrough 06/18/22 07/31/22 325 mg tablet Pain, Severe insulin detemir U-100 100 unit/mL 12 unit subcut DAILY 06/18/22 07/31/22 (3 mL) subcutaneous pen (Levemir FlexTouch U-100 Insulin) tamsulosin 0.4 mg capsule 0.4 mg PO DAILY 06/18/22 07/31/22 Allergies Allergy/AdvReac Type Severity Reaction Status Date / Time No Known Allergies Allergy Verified 06/18/22 14:30 Review of Systems Review of Systems: All systems reviewed & are unremarkable except as noted in HPI and below PMFSH Past Medical History Medical History (Updated 08/01/22 @ 13:28 by Jailene Singh MD) Anemia of chronic disease Anxiety BPH (benign prostatic hyperplasia) Cerebrovascular accident (10/27/18) Chest pain Chest pain Chronic narcotic use Chronic renal failure, stage 3 (moderate) Dementia History of stroke Hyperlipidemia Hypertension Hyponatremia Insulin dependent diabetes mellitus Metabolic acidosis Stroke Surgical History Surgical History Hip joint replacement status History of colostomy History of inguinal hernia repair S/P hip hemiarthroplasty Family History Family History Mother Diabetes mellitus Congestive heart failure Father Cerebrovascular accident Daughter Cancer Social History Social History Social History: The patient lives in [place] with his daughter Kelly who is his durable power district attorney for healthcare. He is a Former smoker. No alcohol or illicit substance abuse. Kelly Fernandez, daughter, is his surrogate decision maker. 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 The patient is Code status: Full code. Smoking status: Former smoker Alcohol intake: never Substance use: never Substance use type: does not use Lack of Transportation: YES Lack of Food: Never True Current Housing: I Have Housing Concerned About Future Housing: No Difficulty Paying Gas/Electric Bills: No Difficulty Paying for Meds: No Currently Unemployed: No Education: High School Diploma/GED Difficulty w/ Childcare or Family Care: No Additional living arrangements comments: Patient currently lives with his daughter Additional occupation/education comments: He is a retired banker Gender identity (if verbalized by the patient): Male Spiritual care concerns: No Exam Narrative: GENERAL: ill appearing, and in no acute distress. HEAD: Normocephalic, atraumatic. EYES: PERRLA and EOMI. ENT: Nares clear, no rhinorrhea or epistaxis. Mucous membranes moist. NECK: Supple. CHEST: Clear to auscultation. No respiratory distress. HEART: Regular rate and rhythm. No murmur heard. Normal peripheral pulses. ABDOMEN: Soft, nontender, nondistended, normal active bowel sounds. EXTREMITIES: Normal range of motion. No edema. SKIN: Warm, dry, no rash. NEURO: Left-sided facial droop noted, 5 out of 5 strength in all extremities, alert and oriented x1. PSYCH: Normal mood and affect. Course Vital Signs Cecilia
--- NOTE | 2022-07-31 13:16 | ECG_ITS ---
Measurements Intervals [place] Rate: 113 P: -2 MS: 179 QRS: -39 QRSD: 76 T: 9 QT: 339 QTc: 466 Interpretive Statements SINUS TACHYCARDIA WITH OCCASIONAL SUPRAVENTRICULAR PREMATURE COMPLEXES INFERIOR MYOCARDIAL INFARCTION , PROBABLY OLD [40+ ms Q WAVE AND/OR ST/T ABNORMALITY IN II/aVF] COMPARED TO ECG 06/18/2022 14:30:24 HEART RATE IS INCREASED, NO OTHER SIGNIFICANT CHANGE Electronically Signed On 07-31-2022 17:22:41 SECTION [employer] PROPERTY MANAGER by Ming Medina M.D.
[2022-07-31] MEDS: SODIUM CHLORIDE 0.9% IV 1,000 ML 999 ML IV CONT ×2 (13:38→15:18)
[2022-07-31 14:08] LABS: Basophils Percent Auto 0.3 % (0.2-1.2); Eosinophils Absolute Auto 0.4 K/mm3 (0-0.3); Eosinophils Percent Auto 3.3 % (0-4.4); Hemoglobin 13.1 g/dL (14.0-18.0); Immature Granulocyte Absolute 0.06 K/mm3 (0.00-0.031); Immature Granulocyte Percent A 0.4 % (0-0.5); Lymphocytes Absolute Auto 0.62 K/mm3 (0.9-3.2); Lymphocytes Percent Auto 4.6 % (18.3-44.2); Mean Corpuscular HGB Conc 32.8 g/dl (32-36); Mean Corpuscular Hemoglobin 28.4 pg (26-34); Mean Corpuscular Volume 86.8 fl (80-100); Mean Platelet Volume 10.5 fl (7.4-10.4); Monocytes Absolute Auto 0.5 K/mm3 (0.1-0.6); Neutrophils Absolute Auto 11.7 K/mm3 (1.3-6.7); Neutrophils Percent Auto 87.4 % (45.5-73.1); Platelet Count Result 249 k/mm3 (150-375); Red Blood Count 4.61 M/mm3 (4.6-6.20); Red Cell Distribution Width 13.7 % (11.5-14.5); White Blood Count 13.4 K/mm3 (4.5-10.0)
[2022-07-31 14:19] LABS: Alanine Aminotransferase 13 U/L (6-50); Albumin Level 4.6 g/dL (3.5-5.1); Alkaline Phosphatase 80 U/L (38-126); Anion Gap 11 mmol/L (8-16); Aspartate Amino Transferase 18 U/L (17-59); Bilirubin,Total 0.6 mg/dL (0.2-1.3); Blood Urea Nitrogen 22 mg/dL (9-20); Calcium 9.1 mg/dL (8.4-10.2); Carbon Dioxide 26 mmol/L (22-30); Chloride 99 mmol/L (98-107); Estimated CRCL calculation 29 ml/min; Estimated Glomerular Filt Rate 34; Glucose 227 mg/dL (65-110); Lactic Acid Reflex 1.3 mmol/L (0.7-2.0); Potassium 3.8 mmol/L (3.4-5.0); Sodium 136 mmol/L (137-145)
[2022-07-31 14:21] LABS: INR 1.4; Partial Thromboplastin Time 32.7 SECONDS (22.3-36.8); Prothrombin Time 16.5 Seconds (11.1-14.7)
[2022-07-31 14:29] LABS: Troponin I 0.017 ng/mL (0.000-0.034)
[2022-07-31 14:45] LABS: Influenza A QL RT-PCR Negative (Negative); Influenza B QL RT-PCR Negative (Negative); SARS-CoV-2 RNA PCR Negative
[2022-07-31 14:48] LABS: Appearance Urine Clear (Clear); Bilirubin Urine Negative (Negative); Blood Urine 2+ (Negative); Color Urine Yellow (Yellow); Glucose Urine UA 1+ mg/dL (Negative); Ketones Urine 2+ mg/dL (Negative); Leukocyte Esterase Ur Negative LEU/UL (Negative); Nitrate Urine Negative (Negative); Protein Urine 3+ mg/dL (Negative); Specific Grav Ur 1.025 (1.001-1.035); Urobilinogen Urine 0.2 mg/dL (<2.0); pH Urine 6.5 (5.0-9.0)
[2022-07-31 14:52] LABS: Bacteria Urine Trace /hpf; RBC Urine 21-50 /hpf (0-2); WBC Urine 0-3 /hpf
[2022-07-31 14:57] LABS: Add Urine Microscopic? YES
--- NOTE | 2022-07-31 16:22 | PC.NURSE ---
heart healthy diet tray ordered
[2022-07-31 17:44] LABS: Troponin I 0.024 ng/mL (0.000-0.034)
--- NOTE | 2022-07-31 18:08 | PC.NURSE ---
This patient, Vitaly Hatfield, was admitted to [facility] Surg Room 322-01. Patient/family oriented to hospital policies and general routines including ID bracelet, bed and alarms, visiting hours, pain management, procedures, bathroom and other care routines, personal items, smoking policy, room service/diet, and visiting hours. Information on how to activate the Rapid Response Team has been discussed. Patient/Family are encouraged to report perceived risks to care and to ask questions if they do not understand what they are told or what they should do.
--- NOTE | 2022-07-31 19:44 | ADMGEN ---
This patient, Vitaly Hatfield, was admitted to [facility] Surg Room 322-01. Patient/family oriented to hospital policies and general routines including ID bracelet, bed and alarms, visiting hours, pain management, procedures, bathroom and other care routines, personal items, smoking policy, room service/diet, and visiting hours. Information on how to activate the Rapid Response Team has been discussed. Patient/Family are encouraged to report perceived risks to care and to ask questions if they do not understand what they are told or what they should do.
--- NOTE | 2022-07-31 23:38 | PM.IMHP ---
H&P: HPI History of Present Illness Date/Time: 07/31/22 23:38 Chief Complaint: Altered mental status Narrative: This is a 81-year-old male patient has a history of hypertension hyperlipidemia diabetes in a atrial fibrillation. Patient presented with neurological symptoms. His last known normal was around 8:00 a.m.. The patient became more confused. The patient is typically alert orientated x4. And when he was brought to the emergency room he was only A&O x1 to himself. EMS was called and they noted a left-sided facial droop with no other deficits. The patient is now answering questions for me. His white count was noted to be 13.4. His H&H is 13.1 and 40.0 which is improved from his baseline. His sodium was 136. His BUN is 22 creatinine is 1.9. Which is at his baseline. His blood sugar was 236. Lactic normal 1.3. Troponins negative x2. He was negative for influenza A/B and COVID. Chest x-ray was read as stable right basilar infiltrates which may represent atelectasis or pneumonia. Head CT was read as no acute intracranial abnormality. Chronic age-related findings. The patient was given IV fluids, Tylenol, cefepime, and vancomycin. Review of Systems Review of Systems: See HPI All systems reviewed & are unremarkable except as noted in HPI and below Constitutional: Constitutional: Reports as per HPI and Reports no additional constitutional complaints Eyes: Eyes: Reports as per HPI and Reports no additional eye complaints ENT: Reports system reviewed and no additional complaints, except as documented and Reports Normal hearing present Cardiovascular: Cardiovascular: Reports no additional cardiovascular complaints Respiratory: Respiratory: Reports no additional respiratory complaints and Reports no additional respiratory complaints Gastrointestinal: Gastrointestinal: Reports as per HPI and Reports no additional gastrointestinal complaints Musculoskeletal: Musculoskeletal: Reports no additional musculoskeletal complaints Integumentary/Breasts: Skin/Breast: Reports system reviewed and no additional complaints, except as docu and Reports as per HPI Neurologic: Reports system reviewed and no additional complaints, except as documented, Reports as per HPI and Reports Normal hearing present Psychiatric: Psychiatric: Reports no additional psychiatric complaints and Reports as per HPI Endocrine: Endocrine: Reports no additional endocrine complaints Hematologic/Lymphatic: Hematologic/Lymphatic: Reports no additional hematologic/lymphatic complaints Allergic/Immunologic: Allergic/Immunologic: Reports no additional allergic/immunologic complaints [facility] Past Medical History Medical History (Updated 07/31/22 @ 23:59 by Cady Low NP) Anemia of chronic disease Anxiety BPH (benign prostatic hyperplasia) Cerebrovascular accident (10/27/18) Chest pain Chest pain Chronic narcotic use Chronic renal failure, stage 3 (moderate) Dementia History of stroke Hyperlipidemia Hypertension Hyponatremia Insulin dependent diabetes mellitus Metabolic acidosis Stroke Surgical History Surgical History Hip joint replacement status History of colostomy History of inguinal hernia repair S/P hip hemiarthroplasty Family History Family History Mother Diabetes mellitus Congestive heart failure Father Cerebrovascular accident Daughter Cancer Social History Social History Social History: The patient lives in [place] with his daughter Kelly who is his durable power business attorney for healthcare. He is a Former smoker. No alcohol or illicit substance abuse. Kelly Fernandez, daughter, is his surrogate decision maker. 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 The patient is Code status: Full co
[2022-08-01] VITALS (13 sets, daily range): BP systolic 165–190; BP diastolic 90–100; PULSE 63–90; RESP 16–24; TEMP 36–36.6; O2SAT 93–98
[2022-08-01] MEDS: HYDROcodone/acetaminophen (*CRX) 10-325 MG TABLET 1 TAB PO (00:25)
[2022-08-01] MEDS: METOPROLOL TARTRATE INJ 5 MG/5 ML VIAL IV PUSH (06:40)
[2022-08-01 08:44] LABS: Basophils Absolute Auto 0.1 K/mm3 (0.0-0.1); Basophils Percent Auto 0.5 % (0.2-1.2); Eosinophils Absolute Auto 0.7 K/mm3 (0-0.3); Hematocrit 37.4 % (42.0-52.0); Hemoglobin 11.9 g/dL (14.0-18.0); Immature Granulocyte Absolute 0.04 K/mm3 (0.00-0.031); Immature Granulocyte Percent A 0.4 % (0-0.5); Immature Platelet Fraction Pct 5.6 % (0.9-11.2); Lymphocytes Absolute Auto 1.13 K/mm3 (0.9-3.2); Lymphocytes Percent Auto 12.2 % (18.3-44.2); Mean Corpuscular HGB Conc 31.8 g/dl (32-36); Mean Corpuscular Hemoglobin 28.7 pg (26-34); Mean Corpuscular Volume 90.1 fl (80-100); Mean Platelet Volume 10.9 fl (7.4-10.4); Monocytes Absolute Auto 0.5 K/mm3 (0.1-0.6); Monocytes Percent Auto 5.3 % (2.6-8.5); Neutrophils Absolute Auto 6.9 K/mm3 (1.3-6.7); Neutrophils Percent Auto 74.6 % (45.5-73.1); Platelet Count Result 209 k/mm3 (150-375); Red Blood Count 4.15 M/mm3 (4.6-6.20); Red Cell Distribution Width 13.8 % (11.5-14.5); White Blood Count 9.2 K/mm3 (4.5-10.0)
[2022-08-01 08:54] LABS: Glucose Point of Care 207 mg/dl (65-105)
[2022-08-01 09:00] LABS: Lactic Acid Reflex 0.9 mmol/L (0.7-2.0)
[2022-08-01 09:01] LABS: Alanine Aminotransferase 9 U/L (6-50); Albumin Level 3.9 g/dL (3.5-5.1); Alkaline Phosphatase 56 U/L (38-126); Anion Gap 9 mmol/L (8-16); Aspartate Amino Transferase 17 U/L (17-59); Bilirubin,Total 0.7 mg/dL (0.2-1.3); Blood Urea Nitrogen 18 mg/dL (9-20); Calcium 8.1 mg/dL (8.4-10.2); Carbon Dioxide 22 mmol/L (22-30); Chloride 102 mmol/L (98-107); Estimated CRCL calculation 37 ml/min; Estimated Glomerular Filt Rate 45; Glucose 214 mg/dL (65-110); Lactate Dehydrogenase 192 U/L (120-246); Magnesium 1.9 mg/dL (1.6-2.3); Potassium 3.9 mmol/L (3.4-5.0); Sodium 133 mmol/L (137-145)
[2022-08-01] MEDS: ALBUTEROL SULFATE NEB 2.5 MG/3 ML INH INHALATION (09:17)
[2022-08-01] MEDS: IPRATROPIUM BR 0.02% INH SOLN 0.5 MG/2.5 ML VIAL INHALATION (09:17)
[2022-08-01] MEDS: ASPIRIN 81 MG ENTERIC TABLET PO ×2 (10:07→21:04)
[2022-08-01] MEDS: ALPRAZolam (*CRX) 0.5 MG TABLET 2 MG PO ×2 (10:07→21:04)
[2022-08-01] MEDS: TAMSULOSIN HCL 0.4 MG CAPSULE PO (10:07)
[2022-08-01] MEDS: METOPROLOL SUCCINATE EXT REL 12.5 MG TABCR PO (10:07)
[2022-08-01] MEDS: FAMOTIDINE 20 MG TABLET PO ×2 (10:08→21:04)
[2022-08-01] MEDS: MICONAZOLE NITRATE 2% CREAM 30 GM TUBE 1 APPLIC TOPICAL ×2 (10:08→21:04)
[2022-08-01] MEDS: APIXABAN 2.5 MG TABLET PO ×2 (10:08→17:24)
[2022-08-01] MEDS: metroNIDAZOLE 250 MG TABLET 500 MG PO ×3 (10:08→21:04)
[2022-08-01] MEDS: INSULIN GLARGINE (*BKC) 100 UNITS/ML 12 UNITS SUB-Q (10:09)
[2022-08-01] MEDS: INSULIN ASPART (*BKC) 100 UNITS/ML SUB-Q ×3 (10:09→17:24)
[2022-08-01 11:53] LABS: Glucose Point of Care 262 mg/dl (65-105)
--- NOTE | 2022-08-01 14:41 | PM.IMPN ---
Progress Note: A&P Assessment and Plan (1) Pneumonia: Code(s): J18.9 - Pneumonia, unspecified organism Status: Acute Assessment and Plan: -the patient was started on cefepime and vancomycin. -tailor antibiotics to sputum and blood cultures. -nebulizer treatments. -Tylenol for fever pain. -the patient was negative for influenza A/B and COVID. -white count is mildly elevated 13.4. -chest x-ray was suggestive of pneumonia. 08/01/2022 interval history: 81-year-old male brought with complaint confusion which was resolved apparently patient this morning is also confused CT scan of the head was negative for any acute injury will do MRI of the brain to further evaluate, patient is on aspirin and Eliquis, there is also concern the patient has a pneumonia being treated with Cefepime, and vancomycin will add Flagyl to cover for anaerobic for possible aspiration pneumonia, will continue to monitor will have a PT OT evaluate the patient and further recommendation to follow. (2) Hypertension: Code(s): I10 - Essential (primary) hypertension Status: Chronic Assessment and Plan: -continue with metoprolol (3) Insulin dependent diabetes mellitus: Status: Chronic Assessment and Plan: -Accu-Cheks AC and HS with sliding scale insulin and hypoglycemic protocol. -check A1c. (4) Dementia: Code(s): F03.90 - Unspecified dementia, unspecified severity, without behavioral disturbance, psychotic disturbance, mood disturbance, and anxiety Status: Acute Assessment and Plan: -the patient was able to answer some questions but is forgetful at times. (5) BPH (benign prostatic hyperplasia): Code(s): N40.0 - Benign prostatic hyperplasia without lower urinary tract symptoms Status: Acute Assessment and Plan: -continue with tamsulosin (6) Anxiety: Code(s): F41.9 - Anxiety disorder, unspecified Status: Chronic Assessment and Plan: -continue with alprazolam (7) Chronic renal failure, stage 3 (moderate): Code(s): N18.30 - Chronic kidney disease, stage 3 unspecified Status: Acute Assessment and Plan: -the patient is at his baseline. (8) Atrial fibrillation: Code(s): I48.91 - Unspecified atrial fibrillation Status: Acute Assessment and Plan: Continue with Eliquis and metoprolol -the patient is in tachycardia today. (9) Anemia of chronic disease: Code(s): D63.8 - Anemia in other chronic diseases classified elsewhere Status: Acute Assessment and Plan: -most likely related to the chronic renal disease -patient is above her baseline. -monitor CBC daily. Subjective Date/time seen: 08/01/22 14:41 Altered mental status HPI-Narrative: This is a 81-year-old male patient has a history of hypertension hyperlipidemia diabetes in a atrial fibrillation.? Patient presented with neurological symptoms.? His last known normal was around 8:00 a.m..? The patient became more confused.? The patient is typically alert orientated x4.? And when he was brought to the emergency room he was only A&O x1 to himself.? EMS was called and they noted a left-sided facial droop with no other deficits.? The patient is now answering questions for me.? His white count was noted to be 13.4.? His H&H is 13.1 and 40.0 which is improved from his baseline.? His sodium was 136.? His BUN is 22 creatinine is 1.9.? Which is at his baseline.? His blood sugar was 236.? Lactic normal 1.3.? Troponins negative x2.? He was negative for influenza A/B and COVID.? Chest x-ray was read as stable right basilar infiltrates which may represent atelectasis or pneumonia.? Head CT was read as no acute intracranial abnormality.? Chronic age-related findings.? The patient was given IV fluids, Tylenol, cefepime, and vancomycin. 08/01/2022 interval history: 81-year-old male brought with complaint confusion which was resolved apparently patient this morning is also con
[2022-08-01 17:01] LABS: Glucose Point of Care 274 mg/dl (65-105)
[2022-08-01 21:13] LABS: Glucose Point of Care 229 mg/dl (65-105)
[2022-08-01] MEDS: hydrALAZINE HCL 20 MG/ML VIAL 10 MG IV PUSH (21:58)
[2022-08-02] VITALS (17 sets, daily range): BP systolic 156–198; BP diastolic 78–102; PULSE 64–117; RESP 16–20; TEMP 36.1–36.4; O2SAT 94–98
--- NOTE | 2022-08-02 01:37 | PCRCNOTE ---
window of time for administration has passed. See next available administration
[2022-08-02] MEDS: METOPROLOL TARTRATE INJ 5 MG/5 ML VIAL IV PUSH (01:52)
[2022-08-02] MEDS: ALBUTEROL SULFATE NEB 2.5 MG/3 ML INH INHALATION ×3 (02:32→14:17)
[2022-08-02] MEDS: IPRATROPIUM BR 0.02% INH SOLN 0.5 MG/2.5 ML VIAL INHALATION ×3 (02:32→14:16)
[2022-08-02] MEDS: metroNIDAZOLE 250 MG TABLET 500 MG PO ×3 (05:35→22:44)
[2022-08-02 07:59] LABS: Hemoglobin 13.5 g/dL (14.0-18.0); Mean Corpuscular HGB Conc 32.1 g/dl (32-36); Mean Corpuscular Hemoglobin 28.6 pg (26-34); Mean Platelet Volume 10.4 fl (7.4-10.4); Platelet Count Result 244 k/mm3 (150-375); Red Blood Count 4.72 M/mm3 (4.6-6.20); Red Cell Distribution Width 13.6 % (11.5-14.5); White Blood Count 8.6 K/mm3 (4.5-10.0)
[2022-08-02 08:04] LABS: Anion Gap 13 mmol/L (8-16); Blood Urea Nitrogen 16 mg/dL (9-20); Calcium 8.7 mg/dL (8.4-10.2); Carbon Dioxide 21 mmol/L (22-30); Chloride 97 mmol/L (98-107); Estimated CRCL calculation 39 ml/min; Estimated Glomerular Filt Rate 48; Glucose 233 mg/dL (65-110); Magnesium 1.9 mg/dL (1.6-2.3); Potassium 3.6 mmol/L (3.4-5.0); Sodium 131 mmol/L (137-145)
[2022-08-02] MEDS: METOPROLOL SUCCINATE EXT REL 12.5 MG TABCR PO (10:17)
[2022-08-02] MEDS: ASPIRIN 81 MG ENTERIC TABLET PO ×2 (10:18→22:44)
[2022-08-02] MEDS: TAMSULOSIN HCL 0.4 MG CAPSULE PO (10:18)
[2022-08-02] MEDS: APIXABAN 2.5 MG TABLET PO ×2 (10:18→17:31)
[2022-08-02] MEDS: MICONAZOLE NITRATE 2% CREAM 30 GM TUBE 1 APPLIC TOPICAL ×2 (10:18→22:44)
[2022-08-02] MEDS: ALPRAZolam (*CRX) 0.5 MG TABLET 2 MG PO ×2 (10:18→22:44)
[2022-08-02] MEDS: FAMOTIDINE 20 MG TABLET PO ×2 (10:18→22:43)
[2022-08-02] MEDS: INSULIN ASPART (*BKC) 100 UNITS/ML SUB-Q ×2 (10:19→17:32)
[2022-08-02] MEDS: INSULIN GLARGINE (*BKC) 100 UNITS/ML 12 UNITS SUB-Q (10:19)
[2022-08-02 12:03] LABS: Glucose Point of Care 274 mg/dl (65-105)
--- NOTE | 2022-08-02 13:55 | PM.IMPN ---
Progress Note: A&P Assessment and Plan (1) Pneumonia: Code(s): J18.9 - Pneumonia, unspecified organism Status: Acute Assessment and Plan: -the patient was started on cefepime and vancomycin. -tailor antibiotics to sputum and blood cultures. -nebulizer treatments. -Tylenol for fever pain. -the patient was negative for influenza A/B and COVID. -white count is mildly elevated 13.4. -chest x-ray was suggestive of pneumonia. 08/02/2022 interval history: 81-year-old male brought with complaint confusion which was resolved apparently patient this morning is also confused CT scan of the head was negative for any acute injury, to further evaluate patient had a MRI of the brain which is also negative for any acute injury, patient is on aspirin and Eliquis, there is also concern the patient has a pneumonia being treated with Cefepime, and vancomycin will add Flagyl to cover for anaerobic for possible aspiration pneumonia, will repeat chest x-ray tomorrow, will continue to monitor will have a PT OT evaluate the patient and further recommendation to follow. (2) Hypertension: Code(s): I10 - Essential (primary) hypertension Status: Chronic Assessment and Plan: -continue with metoprolol (3) Insulin dependent diabetes mellitus: Status: Chronic Assessment and Plan: -Accu-Cheks AC and HS with sliding scale insulin and hypoglycemic protocol. -check A1c. (4) Dementia: Code(s): F03.90 - Unspecified dementia, unspecified severity, without behavioral disturbance, psychotic disturbance, mood disturbance, and anxiety Status: Acute Assessment and Plan: -the patient was able to answer some questions but is forgetful at times. (5) BPH (benign prostatic hyperplasia): Code(s): N40.0 - Benign prostatic hyperplasia without lower urinary tract symptoms Status: Acute Assessment and Plan: -continue with tamsulosin (6) Anxiety: Code(s): F41.9 - Anxiety disorder, unspecified Status: Chronic Assessment and Plan: -continue with alprazolam (7) Chronic renal failure, stage 3 (moderate): Code(s): N18.30 - Chronic kidney disease, stage 3 unspecified Status: Acute Assessment and Plan: -the patient is at his baseline. (8) Atrial fibrillation: Code(s): I48.91 - Unspecified atrial fibrillation Status: Acute Assessment and Plan: Continue with Eliquis and metoprolol -the patient is in tachycardia today. (9) Anemia of chronic disease: Code(s): D63.8 - Anemia in other chronic diseases classified elsewhere Status: Acute Assessment and Plan: -most likely related to the chronic renal disease -patient is above her baseline. -monitor CBC daily. Subjective Date/time seen: 08/02/22 13:55 08/02/2022 interval history: 81-year-old male brought with complaint confusion which was resolved apparently patient this morning is also confused CT scan of the head was negative for any acute injury, to further evaluate patient had a MRI of the brain which is also negative for any acute injury, patient is on aspirin and Eliquis, there is also concern the patient has a pneumonia being treated with Cefepime, and vancomycin will add Flagyl to cover for anaerobic for possible aspiration pneumonia, will repeat chest x-ray tomorrow, will continue to monitor will have a PT OT evaluate the patient and further recommendation to follow. Review of Systems Review of Systems: All systems reviewed & are unremarkable except as noted in HPI and below Exam Narrative: Patient is comfortable, NAD HEENT: eyes are clear and none icteric LUNGS: bilateral fair entry with rhonchi HEART: RR S1S2 ABD: BS+, Soft and nontender Lower extremities: no edema SKIN: nonjaundiced Neuro: grossly intact. Objective Data Vital Signs Vital Signs: Vital Signs - 24 hr 08/01/22 14:00 08/01/22 16:00 08/01/22 20:00 Temperature 97.7 F Pu
[2022-08-02 17:01] LABS: Glucose Point of Care 242 mg/dl (65-105)
[2022-08-02] MEDS: HYDROcodone/acetaminophen (*CRX) 10-325 MG TABLET 1 TAB PO (22:44)
[2022-08-03] VITALS (11 sets, daily range): BP systolic 129–189; BP diastolic 94–116; PULSE 59–90; RESP 18; TEMP 36.3–36.4; O2SAT 98–99; BMI 23.6
--- NOTE | 2022-08-03 00:12 | PCRCNOTE ---
Window of time for administration has passed. See next scheduled administration.
[2022-08-03] MEDS: ALBUTEROL SULFATE NEB 2.5 MG/3 ML INH INHALATION ×3 (02:30→21:32)
[2022-08-03] MEDS: IPRATROPIUM BR 0.02% INH SOLN 0.5 MG/2.5 ML VIAL INHALATION ×3 (02:30→21:32)
[2022-08-03] MEDS: metroNIDAZOLE 250 MG TABLET 500 MG PO ×3 (05:29→21:55)
[2022-08-03] MEDS: METOPROLOL TARTRATE INJ 5 MG/5 ML VIAL IV PUSH ×2 (05:29→21:54)
[2022-08-03 07:15] LABS: Anion Gap 9 mmol/L (8-16); Blood Urea Nitrogen 17 mg/dL (9-20); Calcium 9.4 mg/dL (8.4-10.2); Carbon Dioxide 29 mmol/L (22-30); Chloride 97 mmol/L (98-107); Estimated CRCL calculation 33 ml/min; Estimated Glomerular Filt Rate 39; Glucose 181 mg/dL (65-110); Sodium 135 mmol/L (137-145)
[2022-08-03 07:20] LABS: Hematocrit 41.5 % (42.0-52.0); Hemoglobin 13.5 g/dL (14.0-18.0); Mean Corpuscular HGB Conc 32.5 g/dl (32-36); Mean Corpuscular Volume 85.9 fl (80-100); Mean Platelet Volume 10.4 fl (7.4-10.4); Platelet Count Result 282 k/mm3 (150-375); Red Blood Count 4.83 M/mm3 (4.6-6.20); Red Cell Distribution Width 13.8 % (11.5-14.5); White Blood Count 8.6 K/mm3 (4.5-10.0)
[2022-08-03 08:31] LABS: Glucose Point of Care 175 mg/dl (65-105)
[2022-08-03] MEDS: APIXABAN 2.5 MG TABLET PO ×2 (08:34→17:19)
[2022-08-03] MEDS: ALPRAZolam (*CRX) 0.5 MG TABLET 2 MG PO ×2 (08:34→21:54)
[2022-08-03] MEDS: METOPROLOL SUCCINATE EXT REL 12.5 MG TABCR PO (08:35)
[2022-08-03] MEDS: ASPIRIN 81 MG ENTERIC TABLET PO ×2 (08:35→21:55)
[2022-08-03] MEDS: TAMSULOSIN HCL 0.4 MG CAPSULE PO (08:35)
[2022-08-03] MEDS: FAMOTIDINE 20 MG TABLET PO ×2 (08:35→21:55)
[2022-08-03] MEDS: INSULIN GLARGINE (*BKC) 100 UNITS/ML 12 UNITS SUB-Q (08:39)
[2022-08-03 12:01] LABS: Glucose Point of Care 247 mg/dl (65-105)
[2022-08-03] MEDS: MICONAZOLE NITRATE 2% CREAM 30 GM TUBE 1 APPLIC TOPICAL ×2 (12:17→21:55)
[2022-08-03] MEDS: INSULIN ASPART (*BKC) 100 UNITS/ML SUB-Q ×2 (12:18→17:19)
--- NOTE | 2022-08-03 15:10 | PM.IMPN ---
Progress Note: A&P Assessment and Plan (1) Pneumonia: Code(s): J18.9 - Pneumonia, unspecified organism Status: Acute Assessment and Plan: -the patient was started on cefepime and vancomycin. -tailor antibiotics to sputum and blood cultures. -nebulizer treatments. -Tylenol for fever pain. -the patient was negative for influenza A/B and COVID. -white count is mildly elevated 13.4. -chest x-ray was suggestive of pneumonia. 08/03/2022 interval history: 81-year-old male brought with complaint confusion which was resolved apparently patient this morning is also confused CT scan of the head was negative for any acute injury, to further evaluate patient had a MRI of the brain which is also negative for any acute injury, patient is on aspirin and Eliquis, there is also concern the patient has a pneumonia being treated with Cefepime, and vancomycin, added Flagyl to cover for anaerobic for possible aspiration pneumonia, will repeat chest x-ray today and its pending will continue to monitor will have a PT OT evaluate the patient and further recommendation to follow. (2) Hypertension: Code(s): I10 - Essential (primary) hypertension Status: Chronic Assessment and Plan: -continue with metoprolol (3) Insulin dependent diabetes mellitus: Status: Chronic Assessment and Plan: -Accu-Cheks AC and HS with sliding scale insulin and hypoglycemic protocol. -check A1c. (4) Dementia: Code(s): F03.90 - Unspecified dementia, unspecified severity, without behavioral disturbance, psychotic disturbance, mood disturbance, and anxiety Status: Acute Assessment and Plan: -the patient was able to answer some questions but is forgetful at times. (5) BPH (benign prostatic hyperplasia): Code(s): N40.0 - Benign prostatic hyperplasia without lower urinary tract symptoms Status: Acute Assessment and Plan: -continue with tamsulosin (6) Anxiety: Code(s): F41.9 - Anxiety disorder, unspecified Status: Chronic Assessment and Plan: -continue with alprazolam (7) Chronic renal failure, stage 3 (moderate): Code(s): N18.30 - Chronic kidney disease, stage 3 unspecified Status: Acute Assessment and Plan: -the patient is at his baseline. (8) Atrial fibrillation: Code(s): I48.91 - Unspecified atrial fibrillation Status: Acute Assessment and Plan: Continue with Eliquis and metoprolol -the patient is in tachycardia today. (9) Anemia of chronic disease: Code(s): D63.8 - Anemia in other chronic diseases classified elsewhere Status: Acute Assessment and Plan: -most likely related to the chronic renal disease -patient is above her baseline. -monitor CBC daily. Subjective Date/time seen: 08/03/22 15:10 08/03/2022 interval history: 81-year-old male brought with complaint confusion which was resolved apparently patient this morning is also confused CT scan of the head was negative for any acute injury, to further evaluate patient had a MRI of the brain which is also negative for any acute injury, patient is on aspirin and Eliquis, there is also concern the patient has a pneumonia being treated with Cefepime, and vancomycin, added Flagyl to cover for anaerobic for possible aspiration pneumonia, will repeat chest x-ray today and its pending will continue to monitor will have a PT OT evaluate the patient and further recommendation to follow. Review of Systems Review of Systems: All systems reviewed & are unremarkable except as noted in HPI and below Exam Narrative: Patient is comfortable, NAD HEENT: eyes are clear and none icteric LUNGS: bilateral fair entry with rhonchi HEART: RR S1S2 ABD: BS+, Soft and nontender Lower extremities: no edema SKIN: nonjaundiced Neuro: grossly intact. Objective Data Vital Signs Vital Signs: Vital Signs - 24 hr 08/02/22 16:00 08/02/22 17:27 08/02/22 21:41 Temperat
[2022-08-03 17:07] LABS: Glucose Point of Care 216 mg/dl (65-105)
[2022-08-03 20:31] LABS: Glucose Point of Care 192 mg/dl (65-105)
[2022-08-04] MEDS: ALBUTEROL SULFATE NEB 2.5 MG/3 ML INH INHALATION ×2 (02:59→08:15)
[2022-08-04] MEDS: IPRATROPIUM BR 0.02% INH SOLN 0.5 MG/2.5 ML VIAL INHALATION ×2 (02:59→08:15)
[2022-08-04 03:00] VITALS: PULSE 88; RESP 18
[2022-08-04 05:49] VITALS: BP 135/101; PULSE 85; RESP 20; TEMP 36.2; O2SAT 99
[2022-08-04] MEDS: metroNIDAZOLE 250 MG TABLET 500 MG PO (05:56)
[2022-08-04 06:58] LABS: Hematocrit 39.7 % (42.0-52.0); Hemoglobin 12.8 g/dL (14.0-18.0); Mean Corpuscular HGB Conc 32.2 g/dl (32-36); Mean Corpuscular Hemoglobin 27.6 pg (26-34); Mean Corpuscular Volume 85.7 fl (80-100); Mean Platelet Volume 9.9 fl (7.4-10.4); Platelet Count Result 276 k/mm3 (150-375); Red Blood Count 4.63 M/mm3 (4.6-6.20); Red Cell Distribution Width 13.8 % (11.5-14.5); White Blood Count 7.8 K/mm3 (4.5-10.0)
[2022-08-04 07:08] LABS: Anion Gap 12 mmol/L (8-16); Blood Urea Nitrogen 22 mg/dL (9-20); Calcium 8.8 mg/dL (8.4-10.2); Carbon Dioxide 24 mmol/L (22-30); Chloride 97 mmol/L (98-107); Estimated CRCL calculation 31 ml/min; Estimated Glomerular Filt Rate 36; Glucose 177 mg/dL (65-110); Magnesium 1.9 mg/dL (1.6-2.3); Potassium 3.1 mmol/L (3.4-5.0); Sodium 133 mmol/L (137-145)
[2022-08-04 07:51] LABS: Glucose Point of Care 183 mg/dl (65-105)
[2022-08-04 08:00] VITALS: PULSE 74; RESP 18; O2SAT 99
[2022-08-04 08:15] VITALS: PULSE 82; RESP 18
[2022-08-04] MEDS: ALPRAZolam (*CRX) 0.5 MG TABLET 2 MG PO (08:36)
[2022-08-04 08:37] VITALS: PULSE 74
[2022-08-04] MEDS: APIXABAN 2.5 MG TABLET PO (08:37)
[2022-08-04] MEDS: FAMOTIDINE 20 MG TABLET PO (08:37)
[2022-08-04] MEDS: ASPIRIN 81 MG ENTERIC TABLET PO (08:37)
[2022-08-04] MEDS: METOPROLOL SUCCINATE EXT REL 12.5 MG TABCR PO (08:37)
[2022-08-04] MEDS: MICONAZOLE NITRATE 2% CREAM 30 GM TUBE 1 APPLIC TOPICAL (08:37)
[2022-08-04] MEDS: TAMSULOSIN HCL 0.4 MG CAPSULE PO (08:37)
[2022-08-04] MEDS: INSULIN GLARGINE (*BKC) 100 UNITS/ML 12 UNITS SUB-Q (08:40)
[2022-08-04] MEDS: POTASSIUM CHLORIDE 20 MEQ TABLET 40 MEQ PO (09:30)
[2022-08-04 11:49] LABS: Glucose Point of Care 310 mg/dl (65-105)
[2022-08-04] MEDS: INSULIN ASPART (*BKC) 100 UNITS/ML SUB-Q (12:04)
--- NOTE | 2022-08-04 12:33 | PM.DS ---
DS: Admitting Diagnosis Discharge Date 08/04/2022 Admitting Diagnosis Altered mental status DS: Discharge Diagnosis Discharge Diagnosis (1) Pneumonia: Code(s): J18.9 - Pneumonia, unspecified organism Status: Acute Assessment and Plan: -the patient was started on cefepime and vancomycin. -tailor antibiotics to sputum and blood cultures. -nebulizer treatments. -Tylenol for fever pain. -the patient was negative for influenza A/B and COVID. -white count is mildly elevated 13.4. -chest x-ray was suggestive of pneumonia. 08/03/2022 interval history: 81-year-old male brought with complaint confusion which was resolved apparently patient this morning is also confused CT scan of the head was negative for any acute injury, to further evaluate patient had a MRI of the brain which is also negative for any acute injury, patient is on aspirin and Eliquis, there is also concern the patient has a pneumonia being treated with Cefepime, and vancomycin, added Flagyl to cover for anaerobic for possible aspiration pneumonia, will repeat chest x-ray today and its pending will continue to monitor will have a PT OT evaluate the patient and further recommendation to follow. (2) Hypertension: Code(s): I10 - Essential (primary) hypertension Status: Chronic Assessment and Plan: -continue with metoprolol (3) Insulin dependent diabetes mellitus: Status: Chronic Assessment and Plan: -Accu-Cheks AC and HS with sliding scale insulin and hypoglycemic protocol. -check A1c. (4) Dementia: Code(s): F03.90 - Unspecified dementia, unspecified severity, without behavioral disturbance, psychotic disturbance, mood disturbance, and anxiety Status: Acute Assessment and Plan: -the patient was able to answer some questions but is forgetful at times. (5) BPH (benign prostatic hyperplasia): Code(s): N40.0 - Benign prostatic hyperplasia without lower urinary tract symptoms Status: Acute Assessment and Plan: -continue with tamsulosin (6) Anxiety: Code(s): F41.9 - Anxiety disorder, unspecified Status: Chronic Assessment and Plan: -continue with alprazolam (7) Chronic renal failure, stage 3 (moderate): Code(s): N18.30 - Chronic kidney disease, stage 3 unspecified Status: Acute Assessment and Plan: -the patient is at his baseline. (8) Atrial fibrillation: Code(s): I48.91 - Unspecified atrial fibrillation Status: Acute Assessment and Plan: Continue with Eliquis and metoprolol -the patient is in tachycardia today. (9) Anemia of chronic disease: Code(s): D63.8 - Anemia in other chronic diseases classified elsewhere Status: Acute Assessment and Plan: -most likely related to the chronic renal disease -patient is above her baseline. -monitor CBC daily. DS: Summary Hospital Course Reason for hospitalization: Chief Complaint: Altered mental status Narrative: This is a 81-year-old male patient has a history of hypertension hyperlipidemia diabetes in a atrial fibrillation.? Patient presented with neurological symptoms.? His last known normal was around 8:00 a.m..? The patient became more confused.? The patient is typically alert orientated x4.? And when he was brought to the emergency room he was only A&O x1 to himself.? EMS was called and they noted a left-sided facial droop with no other deficits.? The patient is now answering questions for me.? His white count was noted to be 13.4.? His H&H is 13.1 and 40.0 which is improved from his baseline.? His sodium was 136.? His BUN is 22 creatinine is 1.9.? Which is at his baseline.? His blood sugar was 236.? Lactic normal 1.3.? Troponins negative x2.? He was negative for influenza A/B and COVID.? Chest x-ray was read as stable right basilar infiltrates which may represent atelectasis or pneumonia.? Head CT was read as no acute intracranial abnormality.? Chronic age-related fi
[2022-08-04 13:44] VITALS: BP 131/98; PULSE 101; RESP 18; TEMP 35.9; O2SAT 98
[2022-08-04 16:49] LABS: Glucose Point of Care 181 mg/dl (65-105)
== END 2022-08-04 18:46 | disposition home health service (06) | DRG 194 ==
LOC: ANHED 13:35 → ANH3MEDSUR 17:28
PROVIDERS: Nurse Practitioner; Admitting Provider Family Medicine; Emergency Provider Emergency Medicine; PCP Internal Medicine; Visit Provider Family Medicine
DX: J18.9 Pneumonia, unspecified organism (principal); E87.1 Hypo-osmolality and hyponatremia; R29.810 Facial weakness; D63.1 Anemia in chronic kidney disease; E78.5 Hyperlipidemia, unspecified; E11.22 Type 2 diabetes mellitus with diabetic chronic kidney disease; F41.9 Anxiety disorder, unspecified; F03.90 Unspecified dementia, unspecified severity, without behavioral disturbance, psychotic disturbance, mood disturbance, and anxiety; I48.91 Unspecified atrial fibrillation; I12.9 Hypertensive chronic kidney disease with stage 1 through stage 4 chronic kidney disease, or unspecified chronic kidney disease; N18.30 Chronic kidney disease, stage 3 unspecified; N40.0 Benign prostatic hyperplasia without lower urinary tract symptoms; Z96.649 Presence of unspecified artificial hip joint; Z87.891 Personal history of nicotine dependence; Z79.01 Long term (current) use of anticoagulants; Z86.73 Personal history of transient ischemic attack (TIA), and cerebral infarction without residual deficits; Z20.822 Contact with and (suspected) exposure to COVID-19; Z79.4 Long term (current) use of insulin
CPT/HCPCS: 36415; 70450; 70553; 71045; 71046; 80048; 80053; 80202; 81001; 82948; 83036; 83605; 83615; 83735; 84443; 84484; 85025; 85027; 85055; 85610; 85730; 87040; 87636; 93005; 94640; 96361; 96365; 96366; 96367; 96375; 97110; 97116; 97161; 97165; 97530; 99285; A9270; A9577; G0378; J0131; J0360; J0692; J1815; J3370; J7030

== ENCOUNTER 2022-08-15 20:11 | Emergency (ER) | payer MEDICARE, MEDICAID, SELFPAY ==
[2022-08-15] VITALS (13 sets, daily range): BP systolic 141–197; BP diastolic 100–131; PULSE 89–105; RESP 2–21; TEMP 36.9; O2SAT 94–100
--- NOTE | ~2022-08-15 | CT_ITS ---
EXAMINATION: CT brain wo con DATE: 08/15/2022 20:34 INDICATION: fall, hit to posterior head, on AC . TECHNIQUE: Computed tomography (CT) of the head was performed without intravenous contrast. The mA wa s adjusted according to patient size. Iterative reconstruction technique was employed. The dose-lengt h product was 681.00 mGy-cm. COMPARISON: 07/31/2022. FINDINGS: No acute intracranial hemorrhage. Heterogeneous, crescentic extra-axial collection overlying the left parietal lobe measuring up to 9 mm in thickness, that appears to be bound by suture lines. Small foc us of hematocrit effect. The remaining heterogeneity can be explained by CSF mixing versus acute on s ubacute hemorrhage. No hydrocephalus, mass, or herniation. No acute ischemic infarct. Unremarkable dural venous sinus attenuation. No acute osseous abnormality. The aerated spaces are clear. Moderate atrophy and chronic white matter change. Atherosclerotic intracranial calcification. Stable focus of right parietal encephalomalacia. Bilateral lens replacements. IMPRESSION: 9 mm thick left parietal extra-axial hemorrhage. Results reported telephonically to Addie Galan PA-C by Dr. Souza at 8:52 PM on 08/15/2022. Reviewed, dictated and finalized at location K. DEFENSE ARTILLERY OFFICER IMPRESSION: 9 mm thick left parietal extra-axial hemorrhage. Results reported telephonically to Addie Galan PA-C by Dr. Souza at 8: 52 PM on 08/15/2022.
--- NOTE | ~2022-08-15 | CT_ITS ---
EXAMINATION: CT cervical spine wo con DATE: 08/15/2022 20:36 INDICATION: fall, head injury, neck trauma TECHNIQUE: Computed tomography (CT) of the cervical spine was performed without intravenous contrast. Automated exposure control and iterative reconstruction technique were employed. The dose-length pro duct was 352.95 mGy-cm. COMPARISON: None. FINDINGS: Vertebral Body Alignment: Trace retrolisthesis at C3-4, presumably on a degenerative basis. . Craniocervical and atlantoaxial alignment: Moderate degenerative change. Alignment intact. Osseous structures/fracture: No evidence of a lytic or blastic process in the visualized spine. No e vidence of acute fracture. Presumably chronic mild anterior wedge deformities at C3-C4. Cervical soft tissues: The paraspinal soft tissue/fat planes are maintained. No prevertebral soft tis chris swelling. Degenerative changes: Degenerative changes, without severe neural foraminal or central canal narrowin g. IMPRESSION: No acute fracture or traumatic malalignment in the cervical spine Reviewed, dictated and finalized at location K. THCARE FINANCIAL ANALYST
--- NOTE | ~2022-08-15 | XR_ITS ---
EXAMINATION: XR chest 2V Exam Date/Time: 08/15/2022 21:15 TRASH TRUCK DRIVER HISTORY: weakness, fall, recent pneumonia. Hx cva, htn Comparison: 08/03/2022. RESULT: Lines, tubes, and devices: None. Lungs and pleura: Bibasilar scar. No focal consolidation, pneumothorax, or pleural effusion. Cardiomediastinal silhouette: Stable. Other: No acute osseous or upper abdominal finding. IMPRESSION: No acute cardiopulmonary process. Reviewed, dictated and finalized at location K. H TRUCK DRIVER
--- NOTE | 2022-08-15 20:22 | ECG_ITS ---
Measurements Intervals [place] Rate: 94 P: PA: 0 QRS: -31 QRSD: 80 T: -7 QT: 337 QTc: 421 Interpretive Statements SINUS RHYTHM WITH FREQUENT PREMATURE ATRIAL CONTRACTIONS AND OCCASIONAL PREMATURE VENTRICULAR CONTRACTIONS BASELINE ARTIFACT INFERIOR MYOCARDIAL INFARCTION, PROBABLY OLD ABNORMAL ECG COMPARED TO ECG 07/31/2022 13:19:34 HEART RATE HAS DECREASED Electronically Signed On 08-16-2022 15:46:51 SOLAR INSTALLATION HELPER by Maurice Gonzales M.D.
--- NOTE | 2022-08-15 20:38 | ED.GENADULT ---
HPI - General Adult General Chief complaint: Head Injury Stated complaint: fall, unknown LOC, takes blood thinners Time Seen by Provider: 08/15/22 20:16 History of Present Illness HPI narrative: Patient is an 81-year-old male with a history of Alzheimer's here for evaluation after a fall today. Patient states that he was walking in his kitchen and is unsure what happened that caused him to fall. He is not amnestic to the events leading up to the fall or the events afterwards. He did hit his head but did not lose consciousness. Required EMS assistance to get up but has been ambulating since. Currently complaining of a posterior headache but no other arthralgias. He does take Eliquis for previous CVA. No chest pain, shortness of breath, fevers or chills, nausea or vomiting. Related Data Home Medications Medication Instructions Recorded Confirmed alprazolam 2 mg tablet 2 mg PO Q12H 06/18/22 07/31/22 hydrocodone 10 mg-acetaminophen 1 tablet PO Q8H PRN Breakthrough 06/18/22 07/31/22 325 mg tablet Pain, Severe insulin detemir U-100 100 unit/mL 12 unit subcut DAILY 06/18/22 07/31/22 (3 mL) subcutaneous pen (Levemir FlexTouch U-100 Insulin) tamsulosin 0.4 mg capsule 0.4 mg PO DAILY 06/18/22 07/31/22 Allergies Allergy/AdvReac Type Severity Reaction Status Date / Time No Known Allergies Allergy Verified 08/15/22 21:37 Review of Systems Review of Systems: Gen.: Denies fevers or chills Eyes: Denies eye pain or visual change ENT: Denies congestion Respiratory: Denies shortness of breath or cough CV: Denies chest pain or palpitations GI: Denies abdominal pain nausea, emesis or diarrhea denies burning, urgency, frequency or hematuria Musculoskeletal: Denies back pain or muscle pain Neuro: Reports posterior headache. Denies numbness, tingling, weakness or focal weakness Skin: Denies rash Except as documented, all other systems reviewed and negative PMF Past Medical History Medical History Anemia of chronic disease Anxiety BPH (benign prostatic hyperplasia) Cerebrovascular accident (10/27/18) Chest pain Chest pain Chronic narcotic use Chronic renal failure, stage 3 (moderate) Dementia History of stroke Hyperlipidemia Hypertension Hyponatremia Insulin dependent diabetes mellitus Metabolic acidosis Stroke Surgical History Surgical History Hip joint replacement status History of colostomy History of inguinal hernia repair S/P hip hemiarthroplasty Family History Family History Mother Diabetes mellitus Congestive heart failure Father Cerebrovascular accident Daughter Cancer Social History Social History Social History: The patient lives in [place] with his daughter Kelly who is his durable power collections attorney for healthcare. He is a Former smoker. No alcohol or illicit substance abuse. Kelly Fernandez, daughter, is his surrogate decision maker. 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 The patient is Code status: Full code. Smoking status: Former smoker Alcohol intake: never Substance use: never Substance use type: does not use Lack of Transportation: YES Lack of Food: Never True Current Housing: I Have Housing Concerned About Future Housing: No Difficulty Paying Gas/Electric Bills: No Difficulty Paying for Meds: No Currently Unemployed: No Education: High School Diploma/GED Difficulty w/ Childcare or Family Care: No Additional living arrangements comments: Patient currently lives with his daughter Additional occupation/education comments: He is a retired banker Gender identity (if verbalized by the patient): Male Spiritual care concerns: No Exam Jose
[2022-08-15 21:13] LABS: Basophils Absolute Auto 0.1 K/mm3 (0.0-0.1); Basophils Percent Auto 0.7 % (0.2-1.2); Eosinophils Absolute Auto 1.1 K/mm3 (0-0.3); Eosinophils Percent Auto 10.2 % (0-4.4); Hematocrit 40.9 % (42.0-52.0); Hemoglobin 13.1 g/dL (14.0-18.0); Immature Granulocyte Absolute 0.02 K/mm3 (0.00-0.031); Immature Granulocyte Percent A 0.2 % (0-0.5); Lymphocytes Absolute Auto 1.24 K/mm3 (0.9-3.2); Mean Corpuscular Hemoglobin 28.1 pg (26-34); Mean Corpuscular Volume 87.6 fl (80-100); Mean Platelet Volume 10.7 fl (7.4-10.4); Monocytes Absolute Auto 0.6 K/mm3 (0.1-0.6); Monocytes Percent Auto 5.8 % (2.6-8.5); Neutrophils Absolute Auto 7.4 K/mm3 (1.3-6.7); Neutrophils Percent Auto 71.1 % (45.5-73.1); Platelet Count Result 299 k/mm3 (150-375); Red Blood Count 4.67 M/mm3 (4.6-6.20); White Blood Count 10.3 K/mm3 (4.5-10.0)
[2022-08-15 21:24] LABS: INR 1.2; Prothrombin Time 14.7 Seconds (11.1-14.7)
[2022-08-15 21:25] LABS: Partial Thromboplastin Time 33.5 SECONDS (22.3-36.8)
[2022-08-15] MEDS: niCARdipine 20 MG/200 ML 20 MG/200 ML BAG 50 MG IV CONT (21:35)
[2022-08-15 21:49] LABS: Alanine Aminotransferase 15 U/L (6-50); Albumin Level 4.3 g/dL (3.5-5.1); Alkaline Phosphatase 69 U/L (38-126); Anion Gap 11 mmol/L (8-16); Aspartate Amino Transferase 23 U/L (17-59); Bilirubin,Total 0.5 mg/dL (0.2-1.3); Blood Urea Nitrogen 23 mg/dL (9-20); Calcium 8.9 mg/dL (8.4-10.2); Carbon Dioxide 29 mmol/L (22-30); Chloride 96 mmol/L (98-107); Estimated Glomerular Filt Rate 34; Glucose 275 mg/dL (65-110); Potassium 3.7 mmol/L (3.4-5.0); Sodium 136 mmol/L (137-145)
[2022-08-15] MEDS: ONDANSETRON INJ 4 MG/2 ML VIAL IV PUSH (22:17)
== END 2022-08-15 22:00 | disposition short-term general hospital (02) ==
PROVIDERS: Emergency Provider Physician Assistant; PCP Internal Medicine
DX: S06.360A Traumatic hemorrhage of cerebrum, unspecified, without loss of consciousness, initial encounter (principal); G30.9 Alzheimer's disease, unspecified; F02.80 Dementia in other diseases classified elsewhere, unspecified severity, without behavioral disturbance, psychotic disturbance, mood disturbance, and anxiety; I12.9 Hypertensive chronic kidney disease with stage 1 through stage 4 chronic kidney disease, or unspecified chronic kidney disease; E11.22 Type 2 diabetes mellitus with diabetic chronic kidney disease; N18.30 Chronic kidney disease, stage 3 unspecified; D63.8 Anemia in other chronic diseases classified elsewhere; N40.0 Benign prostatic hyperplasia without lower urinary tract symptoms; Z93.3 Colostomy status; Z96.649 Presence of unspecified artificial hip joint; Z86.73 Personal history of transient ischemic attack (TIA), and cerebral infarction without residual deficits; Z87.891 Personal history of nicotine dependence; Z79.4 Long term (current) use of insulin; Z79.01 Long term (current) use of anticoagulants; I49.1 Atrial premature depolarization; I49.3 Ventricular premature depolarization; R94.31 Abnormal electrocardiogram [ECG] [EKG]; W18.30XA Fall on same level, unspecified, initial encounter
CPT/HCPCS: 36415; 70450; 71046; 72125; 80053; 85025; 85610; 85730; 93005; 96374; 96375; 99285; J2405; J7168

== ENCOUNTER 2022-11-07 19:24 | Emergency (ER) | payer MEDICARE, MEDICAID, SELFPAY ==
[2022-11-07] VITALS (18 sets, daily range): BP systolic 179–193; BP diastolic 92–118; PULSE 77–108; RESP 14–23; TEMP 36.4; O2SAT 97–99
--- NOTE | ~2022-11-07 | CT_ITS ---
EXAMINATION: CT brain wo con DATE: 11/07/2022 19:46 INDICATION: fall, brain bleed in july . TECHNIQUE: Computed tomography (CT) of the head was performed without intravenous contrast. The mA wa s adjusted according to patient size. Iterative reconstruction technique was employed. The dose-lengt h product was 605.33 mGy-cm. COMPARISON: 08/15/2022. FINDINGS: No acute intracranial hemorrhage or extra-axial fluid collection. No hydrocephalus, mass, or herniation. No acute ischemic infarct. Unremarkable dural venous sinus attenuation. No acute osseous abnormality. Small right mastoid effusion, the remaining aerated spaces are clear. Moderate atrophy and chronic white matter change. Atherosclerotic intracranial calcification. Small r ight basal ganglia lacunar infarct. Right posterior frontal encephalomalacia. Bilateral lens replacem ents. IMPRESSION: No acute intracranial process. Reviewed, dictated and finalized at location K.
--- NOTE | ~2022-11-07 | CT_ITS ---
EXAMINATION: CT cervical spine wo con DATE: 11/07/2022 19:49 INDICATION: fall TECHNIQUE: Computed tomography (CT) of the cervical spine was performed without intravenous contrast. Automated exposure control and iterative reconstruction technique were employed. The dose-length pro duct was 356.43 mGy-cm. COMPARISON: 08/15/2022. FINDINGS: Vertebral Body Alignment: Intact. Stable degenerative minimal grade 1 retrolisthesis at C3-4. Craniocervical and atlantoaxial alignment: Moderate degenerative change. Alignment intact. Osseous structures/fracture: No evidence of a lytic or blastic process in the visualized spine. No e vidence of acute fracture. Stable mild anterior wedge deformity at C3, C4, and C5. Cervical soft tissues: The paraspinal soft tissues planes are maintained. Small right mastoid effusio n calcified bilateral carotid bifurcation plaque Degenerative changes: Degenerative changes, without severe neural foraminal or central canal narrowin g. IMPRESSION: No acute fracture or traumatic malalignment in the cervical spine. Reviewed, dictated and finalized at location K.
--- NOTE | 2022-11-07 19:39 | ED.FALL ---
HPI - Fall General Chief Complaint: Fall Stated Complaint: Fall, Headache Time Seen by Provider: 11/07/22 19:34 History of Present Illness HPI Narrative: Patient is an 82-year-old male presenting after a fall. Patient states that he slipped on some water and he fell back striking the back of his head. Does not think he lost consciousness. Denies neck or back pain. States that the back of his head still feels sore. Declines pain medications. Denies numbness or focal weakness. Denies chest pain or shortness of breath. No abdominal pain, nausea or vomiting. Reports that he had bleeding in his brain a couple of months ago and he had to go to [place]. Related Data Home Medications Medication Instructions Recorded Confirmed alprazolam 2 mg tablet 2 mg PO Q12H 06/18/22 10/22/22 hydrocodone 10 mg-acetaminophen 1 tablet PO Q8H PRN Breakthrough 06/18/22 10/22/22 325 mg tablet Pain, Severe insulin detemir U-100 100 unit/mL 12 unit subcut DAILY 06/18/22 10/22/22 (3 mL) subcutaneous pen (Levemir FlexTouch U-100 Insulin) tamsulosin 0.4 mg capsule 0.4 mg PO DAILY 06/18/22 10/22/22 Allergies Allergy/AdvReac Type Severity Reaction Status Date / Time No Known Allergies Allergy Verified 08/15/22 21:37 Review of Systems Review of Systems: All systems reviewed & are unremarkable except as noted in HPI and below PMFSH Past Medical History Medical History Anemia of chronic disease Anxiety BPH (benign prostatic hyperplasia) Cerebrovascular accident (10/27/18) Chest pain Chest pain Chronic narcotic use Chronic renal failure, stage 3 (moderate) Dementia History of stroke Hyperlipidemia Hypertension Hyponatremia Insulin dependent diabetes mellitus Metabolic acidosis Stroke Surgical History Surgical History Hip joint replacement status History of colostomy History of inguinal hernia repair S/P hip hemiarthroplasty Family History Family History Mother Diabetes mellitus Congestive heart failure Father Cerebrovascular accident Daughter Cancer Social History Social History Social History: The patient lives in [place] with his daughter Kelly who is his durable power borough coordinator for healthcare. He is a Former smoker. No alcohol or illicit substance abuse. Kelly Fernandez, daughter, is his surrogate decision maker. 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 The patient is Code status: Full code. 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 No abrasions or ecchymoses, mild tenderness over occipital region EYES: PERRLA and EOMI. ENT: Nares clear, no rhinorrhea or epistaxis. Mucous membranes moist. NECK: Supple. No midline tenderness, c-collar in place CHEST: Clear to auscultation. No respiratory distress. HEART: Regular rate and rhythm ABDOMEN: Soft, nontender, nondistended. EXTREMITIES: Normal range of motion. No edema. SKIN: Warm
== END 2022-11-07 22:01 ==
PROVIDERS: Emergency Provider Emergency Medicine; PCP Internal Medicine
DX: S09.90XA Unspecified injury of head, initial encounter (principal); D64.9 Anemia, unspecified; F41.9 Anxiety disorder, unspecified; E11.9 Type 2 diabetes mellitus without complications; Z79.4 Long term (current) use of insulin; I12.9 Hypertensive chronic kidney disease with stage 1 through stage 4 chronic kidney disease, or unspecified chronic kidney disease; N18.30 Chronic kidney disease, stage 3 unspecified; F03.90 Unspecified dementia, unspecified severity, without behavioral disturbance, psychotic disturbance, mood disturbance, and anxiety; W01.0XXA Fall on same level from slipping, tripping and stumbling without subsequent striking against object, initial encounter
CPT/HCPCS: 70450; 72125; 99284

== ENCOUNTER 2022-11-12 13:43 | Inpatient (IN) | payer MEDICARE, MEDICAID, SELFPAY ==
--- NOTE | ~2022-11-12 | XR_ITS ---
EXAMINATION: XR chest 1V portable INDICATION: Altered mental status TECHNIQUE: Portable AP chest at 1530 hours COMPARISON: 08/15/2022 FINDINGS: There is mild atelectasis of the lung bases. No pleural effusion or pneumothorax. The cardi omediastinal silhouette is stable. The thoracic aorta is ectatic. IMPRESSION: 1. Mild atelectasis of the lung bases. Reviewed, dictated and finalized at location L.
--- NOTE | ~2022-11-12 | CT_ITS ---
EXAMINATION: CT brain wo con INDICATION: Headache COMPARISON: 11/07/2022 TECHNIQUE: Standard unenhanced head CT. The dose-length product (DLP) was 681.00 mGy-cm. The mA was a djusted according to patient size. Iterative reconstruction technique was employed. FINDINGS: There is no acute intraparenchymal hemorrhage. No evidence of mass lesion. No evidence of a cute infarction. There is an old infarct in right frontal lobe posteriorly. There is mild periventric ular and subcortical hypodensity probably related to small vessel ischemic disease. There is mild pro minence of the sulci and ventricles related to cerebral atrophy. Intracranial calcified cerebral athe rosclerosis is noted. There are no extra-axial collections. There is no mass effect or midline shift. The orbits and soft tissues are unremarkable. The visualized sinuses and mastoid air cells are well aerated. IMPRESSION: 1. No acute intracranial abnormality. 2. Age related findings. Reviewed, dictated and finalized at location B.
--- NOTE | ~2022-11-12 | CT_ITS ---
Non-contrast CT scan of the Abdomen and Pelvis Clinical indication: Hematuria, urinary frequency Technique: 2.5 mm axial scans were obtained through the abdomen and pelvis without intravenous or or al contrast. Dose reduction technique was used on this scan by utilizing automated exposure control a nd iterative reconstruction technique. The dose-length product (DLP) was 1046.11 mGy-cm. COMPARISON: 06/18/2022 Findings: Images through the lung bases reveal minimal dependent atelectatic changes. There is no evidence of renal or ureteral calculi. The kidneys and the ureters are nondilated. Calcified hepatic and splenic granulomas are present. Gallbladder is distended with small gallstone p resent. No gallbladder wall thickening or pericholecystic inflammatory change. The pancreas and adren als appear normal. Infrarenal abdominal aortic aneurysm measures up to 3.5 cm in maximum diameter. Th ere are extensive atherosclerotic calcifications of the aorta.. There is no evidence of bowel obstruction. Diverting left lower quadrant ostomy present. Images through the pelvis are degraded by streak artifact from left hip arthroplasty. There is no basia dence of ascites or lymphadenopathy. No abnormality of the urinary bladder seen. Prostate gland is pr obably enlarged. Stable mild compression deformity of T11. Impression: No etiology for hematuria identified on this exam. Cholelithiasis. 3.5 cm infrarenal abdominal aortic aneurysm. Diverting left lower quadrant ostomy. Enlarged prostate gland. Reviewed, dictated and finalized at [facility]. Impression: No etiology for hematuria identified on this exam. Cholelithiasis. 3.5 cm infrarenal abdominal aortic aneurysm. Diverting left lower quadrant ostomy. Enlarged prostate gland.
[2022-11-12 13:48] VITALS: BP 154/120; PULSE 95; RESP 16; TEMP 37; O2SAT 98
--- NOTE | 2022-11-12 14:23 | PC.NURSE ---
Patient not cooperating at this time. Attempts to ask patient questions and he states leave me alone . patient given warm blankets and hooked up to monitor in room. fall precautions in place including bed alarm, side rails up and bed in lowest position
--- NOTE | 2022-11-12 14:42 | PC.NURSE ---
Spoke with patient's daughter and she states patient has history of dementia and for the first time he became combative with her. She states she was unable to calm patient and needed to call 911.
--- NOTE | 2022-11-12 14:51 | ECG_ITS ---
Measurements Intervals Gregory Rate: 86 P: 46 VT: 194 QRS: -14 QRSD: 82 T: 46 QT: 384 QTc: 460 Interpretive Statements SINUS RHYTHM VENTRICULAR PREMATURE COMPLEX CONSIDER INFERIOR INFARCT, AGE INDETERMINATE BASELINE ARTIFACT- I, II, III, V1-V3 ABNORMAL ECG COMPARED TO ECG 08/15/2022 21:05:18 NO SIGNIFICANT CHANGES Electronically Signed On 11-12-2022 20:46:19 CDT by Billy Celis D.O.
--- NOTE | 2022-11-12 14:53 | ED.AMS ---
HPI - Altered Mental Status General Chief Complaint: Altered Mental Status Stated Complaint: confused Time Seen by Provider: 11/12/22 14:18 History of Present Illness HPI narrative: Patient is an 82-year-old male with history of dementia, CKD, hypertension, hyperlipidemia presenting with altered mental status. Patient is coming from home where he lives with his daughter. According to his daughter, he is normally ANO x3. Today, he has been increasingly confused as well as agitated. Sounds like he tried to strike her and he has never been combative in the past. Currently, the patient states that he feels terrible . He is a poor historian and unable to elaborate. Related Data Home Medications Medication Instructions Recorded Confirmed insulin detemir U-100 100 unit/mL 12 unit subcut HS 06/18/22 11/19/22 (3 mL) subcutaneous pen (Levemir FlexTouch U-100 Insulin) tamsulosin 0.4 mg capsule 0.4 mg PO DAILY 06/18/22 11/19/22 Allergies Allergy/AdvReac Type Severity Reaction Status Date / Time No Known Allergies Allergy Verified 08/15/22 21:37 Review of Systems Review of Systems: All systems reviewed & are unremarkable except as noted in HPI and below PMFSH Past Medical History Medical History Anemia of chronic disease Anxiety BPH (benign prostatic hyperplasia) Cerebrovascular accident (10/27/18) Chest pain Chest pain Chronic narcotic use Chronic renal failure, stage 3 (moderate) Dementia History of stroke Hyperlipidemia Hypertension Hyponatremia Insulin dependent diabetes mellitus Metabolic acidosis Stroke Subdural hematoma Surgical History Surgical History Hip joint replacement status History of colostomy History of inguinal hernia repair S/P hip hemiarthroplasty Family History Family History Mother Diabetes mellitus Congestive heart failure Father Cerebrovascular accident Daughter Cancer Social History Social History Social History: The patient lives in [place] with his daughter Kelly who is his durable power health care attorney for healthcare. He is a Former smoker. No alcohol or illicit substance abuse. Kelly Fernandez, daughter, is his surrogate decision maker. 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 The patient is Code status: Full code. 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 EYES: PERRLA and EOMI. ENT: Nares clear, no rhinorrhea or epistaxis. Mucous membranes dry NECK: Supple. CHEST: Clear to auscultation. No respiratory distress. HEART: Regular rate and rhythm. No murmur heard. Normal peripheral pulses. ABDOMEN: Soft, nontender, nondistended EXTREMITIES: Normal range of motion. No edema. SKIN: Warm, dry, no rash. NEURO: Alert and oriented x1. Moving all extremities spontaneously, patient not participating with neuro exam due to AMS, no facial droop or slurred speech noted PSYCH: Agitated inter
[2022-11-12 15:16] LABS: Basophils Absolute Auto 0.1 K/mm3 (0.0-0.1); Basophils Percent Auto 0.5 % (0.2-1.2); Eosinophils Absolute Auto 0.8 K/mm3 (0-0.3); Eosinophils Percent Auto 7.8 % (0-4.4); Hematocrit 36.9 % (42.0-52.0); Hemoglobin 11.9 g/dL (14.0-18.0); Immature Granulocyte Absolute 0.02 K/mm3 (0.00-0.031); Immature Granulocyte Percent A 0.2 % (0-0.5); Lymphocytes Absolute Auto 0.98 K/mm3 (0.9-3.2); Lymphocytes Percent Auto 9.5 % (18.3-44.2); Mean Corpuscular HGB Conc 32.2 g/dl (32-36); Mean Corpuscular Hemoglobin 27.7 pg (26-34); Mean Platelet Volume 10.3 fl (7.4-10.4); Monocytes Absolute Auto 0.4 K/mm3 (0.1-0.6); Monocytes Percent Auto 4.3 % (2.6-8.5); Neutrophils Percent Auto 77.7 % (45.5-73.1); Platelet Count Result 287 k/mm3 (150-375); Red Blood Count 4.29 M/mm3 (4.6-6.20); Red Cell Distribution Width 15.4 % (11.5-14.5); White Blood Count 10.3 K/mm3 (4.5-10.0)
[2022-11-12 15:30] LABS: Lactic Acid Reflex 2.3 mmol/L (0.7-2.0)
[2022-11-12] MEDS: LORazepam INJ (*CRX) 2 MG/ML VIAL 1 MG IV PUSH ×2 (15:36→18:58)
[2022-11-12] MEDS: SODIUM CHLORIDE 0.9% IV 1,000 ML 999 ML IV CONT (15:38)
[2022-11-12 15:46] LABS: INR 1.1; Partial Thromboplastin Time 26.7 SECONDS (22.3-36.8); Prothrombin Time 13.8 Seconds (11.1-14.7)
[2022-11-12 16:14] LABS: Alanine Aminotransferase 14 U/L (6-50); Alkaline Phosphatase 78 U/L (38-126); Anion Gap 7 mmol/L (8-16); Aspartate Amino Transferase 17 U/L (17-59); Bilirubin,Total 0.7 mg/dL (0.2-1.3); Blood Urea Nitrogen 22 mg/dL (9-20); Calcium 8.3 mg/dL (8.4-10.2); Carbon Dioxide 27 mmol/L (22-30); Chloride 103 mmol/L (98-107); Estimated CRCL calculation 33 ml/min; Estimated Glomerular Filt Rate 39; Glucose 191 mg/dL (65-110); Lipase 45 U/L (23-300); Sodium 137 mmol/L (137-145)
[2022-11-12 16:25] LABS: Troponin I < 0.012 ng/mL (0.000-0.034)
[2022-11-12 16:52] LABS: Appearance Urine Clear (Clear); Bacteria Urine None Seen /hpf; Bilirubin Urine Negative (Negative); Blood Urine 1+ (Negative); Color Urine Yellow (Yellow); Glucose Urine UA Trace mg/dL (Negative); Ketones Urine Negative (Negative); Leukocyte Esterase Ur Negative LEU/UL (Negative); Nitrate Urine Negative (Negative); Non Pathogenic Casts 0-2; Protein Urine 3+ mg/dL (Negative); Specific Grav Ur 1.011 (1.001-1.035); Squamous Epithelial Cell Urine None seen /hpf (Few); Urobilinogen Urine 0.2 mg/dL (<2.0); WBC Urine 0-5 /hpf; pH Urine 7.5 (5.0-9.0)
[2022-11-12 17:01] LABS: Add Urine Microscopic? YES
[2022-11-12 17:23] LABS: Influenza A QL RT-PCR Negative (Negative); Influenza B QL RT-PCR Negative (Negative); SARS-CoV-2 RNA PCR Negative
[2022-11-12 18:11] LABS: Reflex Lactic Acid Yes or No Add Lactic
--- NOTE | 2022-11-12 18:16 | PM.IMHP ---
H&P: HPI History of Present Illness Date/Time: 11/12/22 18:16 Chief Complaint: Altered mental status Narrative: This is an 82-year-old male patient who resides with his daughter and son-in-law. He does have a history of dementia, hypertension, and chronic kidney disease. The patient was brought to the emergency room due to a acute altered mental status. The patient was recently in a rehab facility and was discharged from there. The patient was reportedly normal yesterday and today he was combative and agitated. The patient had been peeing all over the house and was pulling on his penis. The patient was also scratching at his abdomen. The patient states that he had to urinate when I was in the room and became very agitated. The patient is a very poor historian and the daughter was answer questions for me. The patient had fallen today and may have struck his head. The patient recently had a subdural hematoma when he fell at the rehab facility. The patient is currently on Eliquis and a CT of the brain was ordered but the patient was 2 restless to have a head CT. He recently had a head CT on 11/07/2022 which was read as no acute intracranial process. Chest x-ray today shows mild atelectasis of the lung bases. The patient was given Ativan and IV fluids in the emergency room. His white count is 10.3 H&H is 11.9 and 36.9. His creatinine is 1.7 which is down from 1.9 on 08/15/2022. His baseline is anywhere from 1.4-1.9. His blood sugar was 191 lactic 2.3. The patient was negative for UTI but had 1+ blood in his urine and 3+ protein. The patient was negative for influenza A/B and COVID. CT of the abdomen and brain have been ordered but the patient was too restless to allow the imaging to be performed. The patient is being admitted to observation on the date of service of 11/12/2022. Review of Systems Review of Systems: All systems reviewed & are unremarkable except as noted in HPI and below Constitutional: Constitutional: Reports as per HPI and Reports no additional constitutional complaints Eyes: Eyes: Reports as per HPI and Reports no additional eye complaints ENT: Reports system reviewed and no additional complaints, except as documented and Reports Normal hearing present Cardiovascular: Cardiovascular: Reports no additional cardiovascular complaints Respiratory: Respiratory: Reports no additional respiratory complaints and Reports no additional respiratory complaints Gastrointestinal: Gastrointestinal: Reports as per HPI and Reports no additional gastrointestinal complaints Musculoskeletal: Musculoskeletal: Reports no additional musculoskeletal complaints Integumentary/Breasts: Skin/Breast: Reports system reviewed and no additional complaints, except as docu and Reports as per HPI Neurologic: Reports system reviewed and no additional complaints, except as documented, Reports as per HPI and Reports Normal hearing present Psychiatric: Psychiatric: Reports no additional psychiatric complaints and Reports as per HPI Endocrine: Endocrine: Reports no additional endocrine complaints Hematologic/Lymphatic: Hematologic/Lymphatic: Reports no additional hematologic/lymphatic complaints Allergic/Immunologic: Allergic/Immunologic: Reports no additional allergic/immunologic complaints PMFSH Past Medical History Medical History Anemia of chronic disease Anxiety BPH (benign prostatic hyperplasia) Cerebrovascular accident (10/27/18) Chest pain Chest pain Chronic narcotic use Chronic renal failure, stage 3 (moderate) Dementia History of stroke Hyperlipidemia Hypertension Hyponatremia Insulin dependent diabetes mellitus Metabolic acidosis Stroke Subdural hematoma Surgical History Surgical History Hip joint replacement status History of colostomy History of inguinal hernia repair S/P hip hemiarthroplasty Family Histor
--- NOTE | 2022-11-12 18:22 | PC.NURSE ---
Patient was able to take his IV out while rolling over in bed. Family at bedside.
[2022-11-12] MEDS: diphenhydrAMINE HCl INJ 50 MG/ML VIAL 25 MG IV PUSH (18:58)
[2022-11-12 19:54] VITALS: BP 169/98; PULSE 88; RESP 20; O2SAT 97
--- NOTE | 2022-11-12 20:40 | PC.NURSE ---
Attempted X2 to obtain patient's CT scan. Patient was unable to lay on table and continues to not follow commands
--- NOTE | 2022-11-12 21:00 | ADMGEN ---
This patient, Vitaly Hatfield, was admitted to [facility] Room 324-01. Patient/family oriented to hospital policies and general routines including ID bracelet, bed and alarms, visiting hours, pain management, procedures, bathroom and other care routines, personal items, smoking policy, room service/diet, and visiting hours. Information on how to activate the Rapid Response Team has been discussed. Patient/Family are encouraged to report perceived risks to care and to ask questions if they do not understand what they are told or what they should do.
--- NOTE | 2022-11-12 21:01 | PC.NURSE ---
Attempted to call 3rd med surg to speak with RN taking patient. no answer. will attempt to call back
--- NOTE | 2022-11-12 21:06 | PC.NURSE ---
Patient has ostomy
[2022-11-12 21:25] VITALS: BMI 24.0
[2022-11-12 22:00] VITALS: BP 176/97; PULSE 81; RESP 20; TEMP 36.7; O2SAT 100
[2022-11-12] MEDS: HYDROcodone/acetaminophen (*CRX) 10-325 MG TABLET 1 TAB PO (23:55)
[2022-11-12] MEDS: SODIUM CHLORIDE 0.9% IV 1,000 ML 100 ML IV CONT (23:56)
[2022-11-13 00:18] LABS: Glucose Point of Care 149 mg/dl (65-105)
[2022-11-13 03:22] LABS: Lactic Acid Reflex 0.9 mmol/L (0.7-2.0)
[2022-11-13 05:01] VITALS: BP 156/84; PULSE 69; RESP 18; TEMP 36.4; O2SAT 98
[2022-11-13 06:31] LABS: Basophils Percent Auto 0.6 % (0.2-1.2); Hemoglobin 10.6 g/dL (14.0-18.0); Immature Granulocyte Absolute 0.03 K/mm3 (0.00-0.031); Immature Granulocyte Percent A 0.4 % (0-0.5); Lymphocytes Absolute Auto 1.78 K/mm3 (0.9-3.2); Lymphocytes Percent Auto 26.6 % (18.3-44.2); Mean Corpuscular HGB Conc 32.1 g/dl (32-36); Mean Corpuscular Hemoglobin 27.6 pg (26-34); Mean Corpuscular Volume 85.9 fl (80-100); Mean Platelet Volume 9.6 fl (7.4-10.4); Monocytes Absolute Auto 0.5 K/mm3 (0.1-0.6); Monocytes Percent Auto 8.1 % (2.6-8.5); Neutrophils Absolute Auto 3.3 K/mm3 (1.3-6.7); Neutrophils Percent Auto 49.3 % (45.5-73.1); Platelet Count Result 246 k/mm3 (150-375); Red Blood Count 3.84 M/mm3 (4.6-6.20); Red Cell Distribution Width 15.3 % (11.5-14.5); White Blood Count 6.7 K/mm3 (4.5-10.0)
[2022-11-13 06:41] LABS: Magnesium 1.6 mg/dL (1.6-2.3)
[2022-11-13 06:42] LABS: Lactic Acid Reflex 0.8 mmol/L (0.7-2.0)
[2022-11-13 07:50] LABS: Glucose Point of Care 135 mg/dl (65-105)
[2022-11-13] MEDS: LORazepam INJ (*CRX) 2 MG/ML VIAL 1 MG IV PUSH (08:07)
[2022-11-13] MEDS: TAMSULOSIN HCL 0.4 MG CAPSULE PO (08:08)
[2022-11-13] MEDS: FAMOTIDINE 20 MG TABLET PO ×2 (08:08→20:53)
[2022-11-13 08:49] LABS: Hemoglobin A1C 6.8 % (<5.7)
[2022-11-13 11:28] LABS: Glucose Point of Care 178 mg/dl (65-105)
[2022-11-13 11:44] LABS: Anion Gap 6 mmol/L (8-16); Blood Urea Nitrogen 20 mg/dL (9-20); Calcium 8.4 mg/dL (8.4-10.2); Carbon Dioxide 27 mmol/L (22-30); Chloride 104 mmol/L (98-107); Estimated CRCL calculation 31 ml/min; Estimated Glomerular Filt Rate 41; Glucose 141 mg/dL (65-110); Sodium 137 mmol/L (137-145)
[2022-11-13] MEDS: SODIUM CHLORIDE 0.9% IV 1,000 ML 100 ML IV CONT ×2 (12:23→21:04)
[2022-11-13 13:56] VITALS: BP 172/88; PULSE 73; RESP 17; TEMP 36.6; O2SAT 98
--- NOTE | 2022-11-13 14:45 | PM.IMPN ---
Progress Note: A&P Assessment and Plan (1) AMS (altered mental status): Code(s): R41.82 - Altered mental status, unspecified Status: Acute (2) Chronic renal failure, stage 3 (moderate): Code(s): N18.30 - Chronic kidney disease, stage 3 unspecified Status: Acute (3) Atrial fibrillation: Code(s): I48.91 - Unspecified atrial fibrillation Status: Acute (4) Dementia: Code(s): F03.90 - Unspecified dementia, unspecified severity, without behavioral disturbance, psychotic disturbance, mood disturbance, and anxiety Status: Acute (5) BPH (benign prostatic hyperplasia): Code(s): N40.0 - Benign prostatic hyperplasia without lower urinary tract symptoms Status: Acute (6) GERD (gastroesophageal reflux disease): Code(s): K21.9 - Gastro-esophageal reflux disease without esophagitis Status: Acute (7) Anxiety: Code(s): F41.9 - Anxiety disorder, unspecified Status: Chronic (8) Hyperlipidemia: Code(s): E78.5 - Hyperlipidemia, unspecified Status: Chronic Assessment and Plan: Continue with heart healthy diet (9) Insulin dependent diabetes mellitus: Status: Chronic Assessment and Plan: Accu-Cheks AC and HS with sliding scale insulin hypoglycemic protocol Continue with Levemir Plan 82-year-old male presented with altered mental status with confusion and agitation tried to strike his daughter with associated fall. # acute encephalopathy: Hypertensive on presentation. Mild leukocytosis. Agitated on cooperative while in the ER. Needing restraints and pharmacologic agents. CT head with no acute abnormality. Troponin negative creatinine of 1.7 on arrival to the ER mild lactic acidosis at 2.3 chest x-ray with no acute abnormality. Urinalysis not suggestive of UTI flu and COVID negative. On IV Ativan p.r.n. for agitation/aggressiveness # history of dementia # hypertension # chronic kidney disease with ARTURO creatinine of 1.7 on admission baseline around 1.4. Gentle IV hydration. Recheck labs today. # fall with head injury CT head is negative recent history of subdural hematoma when he fell at rehab facility reported recent CT head on 11/07/2022 with no acute intracranial process # history of subdural hematoma 07/2022 # atrial fibrillation rate controlled on Eliquis on hold # BPH tamsulosin # GERD famotidine # anxiety disorder Ativan # hyperlipidemia # insulin-dependent diabetes mellitus # code status full code # DVT prophylaxis already on Eliquis at home Subjective Date/time seen: 11/13/22 14:45 Interval history: No overnight events. Feeling better. History reviewed. Chart reviewed. Review of Systems Review of Systems: All systems reviewed & are unremarkable except as noted in HPI and below Exam Narrative: GENERAL: Elderly male lying in bed, in no acute distress HEAD: Normocephalic, atraumatic. EYES: PERRLA and EOMI. ENT: Nares clear, no rhinorrhea or epistaxis.? Mucous membranes dry NECK: Supple. CHEST: Clear to auscultation.? No respiratory distress. HEART: Regular rate and rhythm.? No murmur heard.? Normal peripheral pulses. ABDOMEN: Soft, nontender, nondistended EXTREMITIES: Normal range of motion.? No edema. SKIN: Warm, dry, no rash. NEURO: Alert and oriented x 2.? Moving all extremities spontaneously, speech clear no facial asymmetry PSYCH: Normal mood Objective Data Vital Signs Vital Signs: Vital Signs - 24 hr 11/12/22 19:54 11/12/22 22:00 11/12/22 21:58 Temperature 98.1 F Pulse Rate 88 81 Respiratory Rate 20 20 Blood Pressure 169/98 H 176/97 H Pulse Oximetry 97 100 Oxygen Delivery Room Air 11/13/22 05:01 11/13/22 08:08 11/13/22 13:56 Temperature 97.6 F 97.9 F Pulse Rate 69 73 Respiratory Rate 18 17 Blood Pressure 156/84 H 172/88 H Pulse Oximetry 98 98 Oxygen Delivery Room Air Intake/Output Intake/Output: Intake & Output 11/10/22 11/11/22 11/12/22
[2022-11-13] MEDS: ALPRAZolam (*CRX) 0.5 MG TABLET 1 MG PO ×2 (16:51→20:53)
[2022-11-13] MEDS: APIXABAN 2.5 MG TABLET PO (16:51)
[2022-11-13 17:03] LABS: Glucose Point of Care 150 mg/dl (65-105)
[2022-11-13] MEDS: INSULIN GLARGINE (*BKC) 100 UNITS/ML 12 UNITS SUB-Q (20:53)
[2022-11-13] MEDS: MICONAZOLE NITRATE 2% CREAM 30 GM TUBE 1 APPLIC TOPICAL (20:53)
[2022-11-13 21:08] LABS: Glucose Point of Care 174 mg/dl (65-105)
[2022-11-13 21:26] VITALS: BP 170/80; PULSE 97; RESP 16; TEMP 36.9; O2SAT 97
[2022-11-14] VITALS (7 sets, daily range): BP systolic 139–180; BP diastolic 98–120; PULSE 84–103; RESP 14–18; TEMP 36–36.7; O2SAT 97–98
[2022-11-14] MEDS: HYDROcodone/acetaminophen (*CRX) 10-325 MG TABLET 1 TAB PO (06:04)
--- NOTE | 2022-11-14 06:44 | PC.NURSE ---
Obtained manual BP of 180/120 30 mins after Harviell 10 was given. Pt given Harviell for non-radiating stomach/chest pain. Called Dr. Bernal. Dr. Bernal was unavailable. Report to be given to day shift nurse.
[2022-11-14 07:14] LABS: Basophils Absolute Auto 0.1 K/mm3 (0.0-0.1); Basophils Percent Auto 0.7 % (0.2-1.2); Eosinophils Absolute Auto 0.8 K/mm3 (0-0.3); Eosinophils Percent Auto 10.7 % (0-4.4); Hematocrit 40.6 % (42.0-52.0); Hemoglobin 13.2 g/dL (14.0-18.0); Immature Granulocyte Absolute 0.01 K/mm3 (0.00-0.031); Immature Granulocyte Percent A 0.1 % (0-0.5); Lymphocytes Absolute Auto 1.14 K/mm3 (0.9-3.2); Lymphocytes Percent Auto 14.9 % (18.3-44.2); Mean Corpuscular HGB Conc 32.5 g/dl (32-36); Mean Platelet Volume 9.8 fl (7.4-10.4); Monocytes Absolute Auto 0.5 K/mm3 (0.1-0.6); Monocytes Percent Auto 6.6 % (2.6-8.5); Neutrophils Absolute Auto 5.1 K/mm3 (1.3-6.7); Platelet Count Result 263 k/mm3 (150-375); Red Blood Count 4.72 M/mm3 (4.6-6.20); Red Cell Distribution Width 15.2 % (11.5-14.5); White Blood Count 7.6 K/mm3 (4.5-10.0)
[2022-11-14 07:32] LABS: Alanine Aminotransferase 11 U/L (6-50); Albumin Level 4.1 g/dL (3.5-5.1); Alkaline Phosphatase 79 U/L (38-126); Anion Gap 9 mmol/L (8-16); Aspartate Amino Transferase 20 U/L (17-59); Bilirubin,Total 0.8 mg/dL (0.2-1.3); Blood Urea Nitrogen 18 mg/dL (9-20); Calcium 8.5 mg/dL (8.4-10.2); Carbon Dioxide 24 mmol/L (22-30); Chloride 103 mmol/L (98-107); Estimated CRCL calculation 35 ml/min; Estimated Glomerular Filt Rate 48; Glucose 177 mg/dL (65-110); Magnesium 1.7 mg/dL (1.6-2.3); Potassium 3.7 mmol/L (3.4-5.0); Sodium 136 mmol/L (137-145)
[2022-11-14] MEDS: ALPRAZolam (*CRX) 0.5 MG TABLET 1 MG PO ×2 (07:57→21:07)
[2022-11-14] MEDS: SODIUM CHLORIDE 0.9% IV 1,000 ML 100 ML IV CONT (07:57)
[2022-11-14] MEDS: APIXABAN 2.5 MG TABLET PO ×2 (07:57→16:16)
[2022-11-14] MEDS: hydrALAZINE HCL 20 MG/ML VIAL 10 MG IV PUSH ×3 (07:57→21:07)
[2022-11-14] MEDS: ONDANSETRON INJ 4 MG/2 ML VIAL IV PUSH (07:57)
[2022-11-14] MEDS: FAMOTIDINE 20 MG TABLET PO ×2 (07:57→21:07)
[2022-11-14] MEDS: TAMSULOSIN HCL 0.4 MG CAPSULE PO (07:57)
[2022-11-14 08:15] LABS: Glucose Point of Care 187 mg/dl (65-105)
[2022-11-14] MEDS: amLODIPine BESYLATE 5 MG TABLET PO (09:25)
[2022-11-14 11:47] LABS: Glucose Point of Care 191 mg/dl (65-105)
--- NOTE | 2022-11-14 15:06 | PM.IMPN ---
Progress Note: A&P Assessment and Plan (1) AMS (altered mental status): Code(s): R41.82 - Altered mental status, unspecified Status: Acute (2) Chronic renal failure, stage 3 (moderate): Code(s): N18.30 - Chronic kidney disease, stage 3 unspecified Status: Acute (3) Atrial fibrillation: Code(s): I48.91 - Unspecified atrial fibrillation Status: Acute (4) Dementia: Code(s): F03.90 - Unspecified dementia, unspecified severity, without behavioral disturbance, psychotic disturbance, mood disturbance, and anxiety Status: Acute (5) BPH (benign prostatic hyperplasia): Code(s): N40.0 - Benign prostatic hyperplasia without lower urinary tract symptoms Status: Acute (6) GERD (gastroesophageal reflux disease): Code(s): K21.9 - Gastro-esophageal reflux disease without esophagitis Status: Acute (7) Anxiety: Code(s): F41.9 - Anxiety disorder, unspecified Status: Chronic (8) Hyperlipidemia: Code(s): E78.5 - Hyperlipidemia, unspecified Status: Chronic Assessment and Plan: Continue with heart healthy diet (9) Insulin dependent diabetes mellitus: Status: Chronic Assessment and Plan: Accu-Cheks AC and HS with sliding scale insulin hypoglycemic protocol Continue with Levemir Plan 82-year-old male presented with altered mental status with confusion and agitation tried to strike his daughter with associated fall. # acute encephalopathy: Hypertensive on presentation. Mild leukocytosis. Agitated on cooperative while in the ER. Needing restraints and pharmacologic agents. CT head with no acute abnormality. Troponin negative creatinine of 1.7 on arrival to the ER mild lactic acidosis at 2.3 chest x-ray with no acute abnormality. Urinalysis not suggestive of UTI flu and COVID negative. On IV Ativan p.r.n. for agitation/aggressiveness . Continue to monitor mental status. # history of dementia # hypertension Hydralazine p.r.n.. Start amlodipine 5 mg daily # chronic kidney disease with ARTURO creatinine of 1.7 on admission baseline around 1.4. Gentle IV hydration. Recheck labs with improved creatinine back to his baseline now # fall with head injury CT head is negative recent history of subdural hematoma when he fell at rehab facility reported recent CT head on 11/07/2022 with no acute intracranial process # history of subdural hematoma 07/2022 # atrial fibrillation rate controlled on Eliquis on hold # BPH tamsulosin # GERD famotidine # anxiety disorder Ativan # hyperlipidemia # insulin-dependent diabetes mellitus # code status full code # DVT prophylaxis already on Eliquis at home Subjective Date/time seen: 11/14/22 15:06 Interval history: No overnight events. he remains common cooperative. Blood pressure is elevated. Discussed with the nursing staff. Denies any new complaints. No shortness of breaths chest pain abdominal pain nausea vomiting. Review of Systems Review of Systems: All systems reviewed & are unremarkable except as noted in HPI and below Exam Narrative: GENERAL: Elderly male lying in bed, in no acute distress HEAD: Normocephalic, atraumatic. EYES: PERRLA and EOMI. ENT: Nares clear, no rhinorrhea or epistaxis.? Mucous membranes dry NECK: Supple. CHEST: Clear to auscultation.? No respiratory distress. HEART: Regular rate and rhythm.? No murmur heard.? Normal peripheral pulses. ABDOMEN: Soft, nontender, nondistended EXTREMITIES: Normal range of motion.? No edema. SKIN: Warm, dry, no rash. NEURO: Alert and oriented x 2.? Moving all extremities spontaneously, speech clear no facial asymmetry PSYCH: Normal mood Objective Data Vital Signs Vital Signs: Vital Signs - 24 hr 11/13/22 21:26 11/13/22 21:00 11/14/22 05:56 Temperature 98.5 F 98.0 F Pulse Rate 97 95 Respiratory Rate 16 14 Blood Pressure 170/80 H Pulse Oximetry 97 98 Oxygen Delivery Room Air 11/14/22 06:44 11/14/22 09:
[2022-11-14] MEDS: INSULIN ASPART (*BKC) 100 UNITS/ML SUB-Q (16:52)
[2022-11-14 16:54] LABS: Glucose Point of Care 216 mg/dl (65-105)
[2022-11-14 20:14] LABS: Glucose Point of Care 214 mg/dl (65-105)
[2022-11-14] MEDS: INSULIN GLARGINE (*BKC) 100 UNITS/ML 12 UNITS SUB-Q (21:06)
[2022-11-14] MEDS: MICONAZOLE NITRATE 2% CREAM 30 GM TUBE 1 APPLIC TOPICAL (21:07)
[2022-11-15 03:58] VITALS: BP 147/110; PULSE 103; RESP 18; TEMP 36.2; O2SAT 98
[2022-11-15 07:27] LABS: Basophils Percent Auto 0.4 % (0.2-1.2); Eosinophils Absolute Auto 0.4 K/mm3 (0-0.3); Eosinophils Percent Auto 5.6 % (0-4.4); Hematocrit 37.1 % (42.0-52.0); Hemoglobin 11.9 g/dL (14.0-18.0); Immature Granulocyte Absolute 0.02 K/mm3 (0.00-0.031); Immature Granulocyte Percent A 0.3 % (0-0.5); Lymphocytes Absolute Auto 1.07 K/mm3 (0.9-3.2); Lymphocytes Percent Auto 15.4 % (18.3-44.2); Mean Corpuscular HGB Conc 32.1 g/dl (32-36); Mean Corpuscular Hemoglobin 27.2 pg (26-34); Mean Corpuscular Volume 84.7 fl (80-100); Mean Platelet Volume 10.1 fl (7.4-10.4); Monocytes Absolute Auto 0.6 K/mm3 (0.1-0.6); Monocytes Percent Auto 9.1 % (2.6-8.5); Neutrophils Absolute Auto 4.8 K/mm3 (1.3-6.7); Neutrophils Percent Auto 69.2 % (45.5-73.1); Platelet Count Result 275 k/mm3 (150-375); Red Blood Count 4.38 M/mm3 (4.6-6.20); Red Cell Distribution Width 15.4 % (11.5-14.5); White Blood Count 6.9 K/mm3 (4.5-10.0)
[2022-11-15 07:43] LABS: Alanine Aminotransferase 11 U/L (6-50); Albumin Level 3.8 g/dL (3.5-5.1); Alkaline Phosphatase 70 U/L (38-126); Anion Gap 6 mmol/L (8-16); Aspartate Amino Transferase 18 U/L (17-59); Bilirubin,Total 0.5 mg/dL (0.2-1.3); Blood Urea Nitrogen 23 mg/dL (9-20); Calcium 8.4 mg/dL (8.4-10.2); Carbon Dioxide 25 mmol/L (22-30); Chloride 102 mmol/L (98-107); Estimated CRCL calculation 31 ml/min; Estimated Glomerular Filt Rate 41; Glucose 190 mg/dL (65-110); Magnesium 1.7 mg/dL (1.6-2.3); Potassium 3.8 mmol/L (3.4-5.0); Sodium 133 mmol/L (137-145)
[2022-11-15 07:49] LABS: Glucose Point of Care 207 mg/dl (65-105)
[2022-11-15] MEDS: MICONAZOLE NITRATE 2% CREAM 30 GM TUBE 1 APPLIC TOPICAL ×2 (09:15→20:42)
[2022-11-15] MEDS: amLODIPine BESYLATE 5 MG TABLET PO (09:15)
[2022-11-15] MEDS: APIXABAN 2.5 MG TABLET PO ×2 (09:15→20:41)
[2022-11-15] MEDS: TAMSULOSIN HCL 0.4 MG CAPSULE PO (09:15)
[2022-11-15] MEDS: FAMOTIDINE 20 MG TABLET PO ×2 (09:15→20:41)
[2022-11-15] MEDS: ALPRAZolam (*CRX) 0.5 MG TABLET 1 MG PO ×2 (09:18→20:41)
[2022-11-15] MEDS: INSULIN ASPART (*BKC) 100 UNITS/ML SUB-Q ×3 (09:18→17:49)
[2022-11-15 12:17] LABS: Glucose Point of Care 209 mg/dl (65-105)
[2022-11-15 13:00] VITALS: BP 104/68; PULSE 96
[2022-11-15 14:00] VITALS: BP 97/80; PULSE 100; RESP 16; TEMP 36.8; O2SAT 98
--- NOTE | 2022-11-15 15:19 | PM.IMPN ---
Progress Note: A&P Assessment and Plan (1) AMS (altered mental status): Code(s): R41.82 - Altered mental status, unspecified Status: Acute (2) Chronic renal failure, stage 3 (moderate): Code(s): N18.30 - Chronic kidney disease, stage 3 unspecified Status: Acute (3) Atrial fibrillation: Code(s): I48.91 - Unspecified atrial fibrillation Status: Acute (4) Dementia: Code(s): F03.90 - Unspecified dementia, unspecified severity, without behavioral disturbance, psychotic disturbance, mood disturbance, and anxiety Status: Acute (5) BPH (benign prostatic hyperplasia): Code(s): N40.0 - Benign prostatic hyperplasia without lower urinary tract symptoms Status: Acute (6) GERD (gastroesophageal reflux disease): Code(s): K21.9 - Gastro-esophageal reflux disease without esophagitis Status: Acute (7) Anxiety: Code(s): F41.9 - Anxiety disorder, unspecified Status: Chronic (8) Hyperlipidemia: Code(s): E78.5 - Hyperlipidemia, unspecified Status: Chronic (9) Insulin dependent diabetes mellitus: Status: Chronic Plan 82-year-old male presented with altered mental status with confusion and agitation tried to strike his daughter with associated fall. # acute encephalopathy: Hypertensive on presentation. Mild leukocytosis. Agitated on cooperative while in the ER. Needing restraints and pharmacologic agents. CT head with no acute abnormality. Troponin negative creatinine of 1.7 on arrival to the ER mild lactic acidosis at 2.3 chest x-ray with no acute abnormality. Urinalysis not suggestive of UTI flu and COVID negative. On IV Ativan p.r.n. for agitation/aggressiveness . Continue to monitor mental status. # history of dementia # hypertension Hydralazine p.r.n.. Started amlodipine 5 mg daily. Will increase to 10 mg today. Restart metoprolol as well a not sure why metoprolol is off his list he was on this medication per discharge summary from his last admission # chronic kidney disease with ARTURO creatinine of 1.7 on admission baseline around 1.4. Gentle IV hydration. Recheck labs with improved creatinine back to his baseline now # fall with head injury CT head is negative recent history of subdural hematoma when he fell at rehab facility reported recent CT head on 11/07/2022 with no acute intracranial process # history of subdural hematoma 07/2022 # atrial fibrillation rate controlled on Eliquis on hold # BPH tamsulosin # GERD famotidine # anxiety disorder Ativan # hyperlipidemia # insulin-dependent diabetes mellitus # code status full code # DVT prophylaxis already on Eliquis at home Subjective Date/time seen: 11/15/22 15:19 Interval history: No overnight events. No fever chills. No shortness of breath chest pain awake and alert oriented x2. Review of Systems Review of Systems: All systems reviewed & are unremarkable except as noted in HPI and below Exam Narrative: GENERAL: Elderly male lying in bed, in no acute distress HEAD: Normocephalic, atraumatic. EYES: PERRLA and EOMI. ENT: Nares clear, no rhinorrhea or epistaxis.? Mucous membranes dry NECK: Supple. CHEST: Clear to auscultation.? No respiratory distress. HEART: Regular rate and rhythm.? No murmur heard.? Normal peripheral pulses. ABDOMEN: Soft, nontender, nondistended EXTREMITIES: Normal range of motion.? No edema. SKIN: Warm, dry, no rash. NEURO: Alert and oriented x 2.? Moving all extremities spontaneously, speech clear no facial asymmetry PSYCH: Normal mood Objective Data Vital Signs Vital Signs: Vital Signs - 24 hr 11/14/22 16:42 11/14/22 20:17 11/14/22 21:15 Temperature 97.4 F L Pulse Rate 103 H Respiratory Rate 16 Blood Pressure 139/105 H 165/109 H Pulse Oximetry 97 Oxygen Delivery Room Air 11/15/22 03:58 11/15/22 13:20 11/15/22 14:00 Temperature 97.1 F L 98.2 F Pulse Rate 103 H 100 Respiratory Rate 18 16 Blood Pressure 147/
[2022-11-15 16:33] LABS: Glucose Point of Care 210 mg/dl (65-105)
[2022-11-15 17:05] VITALS: BP 112/78
--- NOTE | 2022-11-15 19:28 | PC.NURSE ---
Pt vitals were low 104/68 (1300) when meds finally came to floor from pharmacy. Held additional 5mg amlodipine and metoprolol.
[2022-11-15 20:07] VITALS: BP 137/86; PULSE 97; RESP 16; TEMP 35.8; O2SAT 98
[2022-11-15 20:38] LABS: Glucose Point of Care 256 mg/dl (65-105)
[2022-11-15] MEDS: INSULIN GLARGINE (*BKC) 100 UNITS/ML 12 UNITS SUB-Q (20:41)
[2022-11-15] MEDS: MELATONIN 5 MG TABLET PO (23:29)
[2022-11-16 06:00] VITALS: BP 140/96; PULSE 89; RESP 18; TEMP 36.3; O2SAT 96
[2022-11-16 07:57] LABS: Glucose Point of Care 111 mg/dl (65-105)
[2022-11-16 08:40] LABS: Basophils Percent Auto 0.6 % (0.2-1.2); Eosinophils Absolute Auto 1.2 K/mm3 (0-0.3); Eosinophils Percent Auto 18.9 % (0-4.4); Hematocrit 36.3 % (42.0-52.0); Hemoglobin 11.9 g/dL (14.0-18.0); Lymphocytes Absolute Auto 1.66 K/mm3 (0.9-3.2); Lymphocytes Percent Auto 25.7 % (18.3-44.2); Mean Corpuscular HGB Conc 32.8 g/dl (32-36); Mean Corpuscular Hemoglobin 28.2 pg (26-34); Mean Platelet Volume 9.9 fl (7.4-10.4); Monocytes Absolute Auto 0.5 K/mm3 (0.1-0.6); Monocytes Percent Auto 7.7 % (2.6-8.5); Neutrophils Percent Auto 47.1 % (45.5-73.1); Platelet Count Result 270 k/mm3 (150-375); Red Blood Count 4.22 M/mm3 (4.6-6.20); Red Cell Distribution Width 15.6 % (11.5-14.5); White Blood Count 6.5 K/mm3 (4.5-10.0)
[2022-11-16 08:54] LABS: Alanine Aminotransferase 10 U/L (6-50); Albumin Level 3.5 g/dL (3.5-5.1); Alkaline Phosphatase 59 U/L (38-126); Anion Gap 9 mmol/L (8-16); Aspartate Amino Transferase 14 U/L (17-59); Bilirubin,Total 0.6 mg/dL (0.2-1.3); Blood Urea Nitrogen 23 mg/dL (9-20); Calcium 8.3 mg/dL (8.4-10.2); Carbon Dioxide 26 mmol/L (22-30); Chloride 101 mmol/L (98-107); Estimated CRCL calculation 29 ml/min; Estimated Glomerular Filt Rate 39; Glucose 107 mg/dL (65-110); Magnesium 1.8 mg/dL (1.6-2.3); Potassium 3.5 mmol/L (3.4-5.0); Sodium 136 mmol/L (137-145)
[2022-11-16] MEDS: TAMSULOSIN HCL 0.4 MG CAPSULE PO (09:16)
[2022-11-16] MEDS: APIXABAN 2.5 MG TABLET PO ×2 (09:16→18:04)
[2022-11-16 09:17] VITALS: PULSE 88
[2022-11-16] MEDS: METOPROLOL SUCCINATE EXT REL 12.5 MG TABCR PO (09:17)
[2022-11-16] MEDS: amLODIPine BESYLATE 5 MG TABLET PO (09:17)
[2022-11-16] MEDS: FAMOTIDINE 20 MG TABLET PO (09:18)
[2022-11-16] MEDS: ALPRAZolam (*CRX) 0.5 MG TABLET 1 MG PO (09:22)
[2022-11-16 12:11] LABS: Glucose Point of Care 162 mg/dl (65-105)
[2022-11-16 14:00] VITALS: BP 138/86; PULSE 74; RESP 16; TEMP 36.5; O2SAT 99
--- NOTE | 2022-11-16 14:20 | PM.DS ---
DS: Admitting Diagnosis Discharge Date 11/16/2022 Admitting Diagnosis Agitation confusion DS: Discharge Diagnosis Discharge Diagnosis (1) AMS (altered mental status): Code(s): R41.82 - Altered mental status, unspecified Status: Acute (2) Chronic renal failure, stage 3 (moderate): Code(s): N18.30 - Chronic kidney disease, stage 3 unspecified Status: Acute (3) Atrial fibrillation: Code(s): I48.91 - Unspecified atrial fibrillation Status: Acute (4) Dementia: Code(s): F03.90 - Unspecified dementia, unspecified severity, without behavioral disturbance, psychotic disturbance, mood disturbance, and anxiety Status: Acute (5) BPH (benign prostatic hyperplasia): Code(s): N40.0 - Benign prostatic hyperplasia without lower urinary tract symptoms Status: Acute (6) GERD (gastroesophageal reflux disease): Code(s): K21.9 - Gastro-esophageal reflux disease without esophagitis Status: Acute (7) Anxiety: Code(s): F41.9 - Anxiety disorder, unspecified Status: Chronic (8) Hyperlipidemia: Code(s): E78.5 - Hyperlipidemia, unspecified Status: Chronic (9) Insulin dependent diabetes mellitus: Status: Chronic DS: Summary Hospital Course Hospital Course: 82-year-old male presented with altered mental status with confusion and agitation tried to strike his daughter with associated fall. # acute encephalopathy:? Hypertensive on presentation.? Mild leukocytosis.? Agitated on cooperative while in the ER.? Needing restraints and pharmacologic agents.? CT head with no acute abnormality.? Troponin negative creatinine of 1.7 on arrival to the ER mild lactic acidosis at 2.3 chest x-ray with no acute abnormality.? Urinalysis not suggestive of UTI flu and COVID negative. On IV Ativan p.r.n. for agitation/aggressiveness .? Continue to monitor mental? status. Improved during the hospital stay # history of dementia on Ativan p.r.n. at home for agitation/aggressiveness # hypertension? Hydralazine p.r.n..? Started amlodipine 5 mg daily.? Restart metoprolol as well as not sure why metoprolol is off his list he was on this medication per discharge summary from his last admission # chronic kidney disease with ARTURO creatinine of 1.7 on admission baseline around 1.4.? Gentle IV hydration.? Recheck labs? with improved creatinine back to his baseline now. Continue to monitor as an outpatient basis # fall with head injury CT head is negative recent history of subdural hematoma when he fell at rehab facility reported recent CT head on 11/07/2022 with no acute intracranial process # history of subdural hematoma 07/2022 # atrial fibrillation rate controlled on Eliquis on hold which has been now resumed # BPH tamsulosin # GERD famotidine # anxiety disorder Ativan # hyperlipidemia # insulin-dependent diabetes mellitus # code status full code # DVT prophylaxis already on Eliquis at home # disposition: Going to SNF for further rehabilitation Time Spent with Patient Time attestation: Total time spent providing and/or coordinating discharge services: 45 minutes Exam Narrative: GENERAL: Elderly male lying in bed, in no acute distress HEAD: Normocephalic, atraumatic. EYES: PERRLA and EOMI. ENT: Nares clear, no rhinorrhea or epistaxis.? Mucous membranes dry NECK: Supple. CHEST: Clear to auscultation.? No respiratory distress. HEART: Regular rate and rhythm.? No murmur heard.? Normal peripheral pulses. ABDOMEN: Soft, nontender, nondistended colostomy on left lower quadrant EXTREMITIES: Normal range of motion.? No edema. SKIN: Warm, dry, no rash. NEURO: Alert and oriented x 2.? Moving all extremities spontaneously, speech clear no facial asymmetry PSYCH: Normal mood DS: Data Data Completed and Pending Labs on day of discharge: Labs from last 24 hours 11/16/22 11/16/22 11/16/22 12:07 08:34 08:34 WBC 6.5 RBC 4.22 L Hgb 11.9 L Hct 36.3 L MCV 86.0 MCH 2
[2022-11-16 15:38] LABS: EDCOVIDSCREEN Negative (Negative)
[2022-11-16 16:51] LABS: Glucose Point of Care 170 mg/dl (65-105)
== END 2022-11-16 18:45 | DRG 884 ==
LOC: ANHED 14:38 → ANH3MEDSUR 20:48
PROVIDERS: Nurse Practitioner; Admitting Provider Chiropractor; Emergency Provider Emergency Medicine; PCP Internal Medicine; Visit Provider Internal Medicine
DX: F03.911 Unspecified dementia, unspecified severity, with agitation (principal); N17.9 Acute kidney failure, unspecified; N18.30 Chronic kidney disease, stage 3 unspecified; I48.91 Unspecified atrial fibrillation; K21.9 Gastro-esophageal reflux disease without esophagitis; F41.9 Anxiety disorder, unspecified; E78.5 Hyperlipidemia, unspecified; E11.22 Type 2 diabetes mellitus with diabetic chronic kidney disease; I12.9 Hypertensive chronic kidney disease with stage 1 through stage 4 chronic kidney disease, or unspecified chronic kidney disease; N40.0 Benign prostatic hyperplasia without lower urinary tract symptoms; Z79.4 Long term (current) use of insulin; Z20.822 Contact with and (suspected) exposure to COVID-19; Z86.73 Personal history of transient ischemic attack (TIA), and cerebral infarction without residual deficits; Z79.899 Other long term (current) drug therapy; Z79.01 Long term (current) use of anticoagulants
CPT/HCPCS: 36415; 70450; 71045; 74176; 80048; 80053; 81001; 82948; 83036; 83605; 83690; 83735; 84443; 84484; 85025; 85610; 85730; 87040; 87426; 87636; 93005; 96361; 96374; 96375; 96376; 97165; 99285; A9270; C9803; G0378; J0360; J1200; J1815; J2060; J2405; J7030

== ENCOUNTER 2023-02-09 14:47 | Emergency (ER) | payer MEDICARE, MEDICAID, SELFPAY ==
[2023-02-09] VITALS (13 sets, daily range): BP systolic 169–203; BP diastolic 94–107; PULSE 86–102; RESP 13–22; TEMP 37.7; O2SAT 94–98
--- NOTE | ~2023-02-09 | XR_ITS ---
[XR ribs LT 2V ] INDICATION: Left rib pain TECHNIQUE: Frontal projection of the upper left ribs, frontal projection of the lower left ribs, obli que projection of all the left ribs, frontal inspiratory chest x-ray for interpretation. FINDINGS: There are no displaced rib fractures identified. There are no soft tissue abnormality see n. There is left basilar infiltrates which may represent atelectasis or developing pneumonia. IMPRESSION: 1:No acute displaced rib fractures. 2:Left basilar infiltrates may represent atelectasis or developing pneumonia. Reviewed, dictated and finalized at location L.
--- NOTE | ~2023-02-09 | XR_ITS ---
XR chest 2V 02/09/2023 15:43 Indication: Fever. Left anterior rib pain. Procedure: 2 view chest Comparison: Comparison to multiple prior studies sequentially, with oldest reviewed study dated 04/2022. Findings: There is right basilar airspace disease.. Heart size upper normal or mildly enlarged. There is atherosclerosis and ectasia of the aorta. No significant effusion, edema or pneumothorax. Impression: 1: Right basilar airspace disease may represent atelectasis and/or pneumonia. Reviewed, dictated and finalized at location L. Impression: 1: Right basilar airspace disease may represent atelectasis and/or pneumonia.
--- NOTE | 2023-02-09 15:16 | ED.FALL ---
HPI - Fall General Chief Complaint: Fall Stated Complaint: fall/ rib pain/ tremors Time Seen by Provider: 02/09/23 15:07 History of Present Illness HPI Narrative: Pt was going to bathroom and lost balance and fell landing on left ribs. Pt complains of left rib pain. Pt denies LOC or neck pain. Pt developed shaking chills about 3 hrs ago. Pt denies cough or dysuria or frequency or RIVERO. Related Data Home Medications Medication Instructions Recorded Confirmed insulin detemir U-100 100 unit/mL 12 unit subcut HS 06/18/22 12/17/22 (3 mL) subcutaneous pen (Levemir FlexTouch U-100 Insulin) tamsulosin 0.4 mg capsule 0.4 mg PO DAILY 06/18/22 12/17/22 Allergies Allergy/AdvReac Type Severity Reaction Status Date / Time No Known Allergies Allergy Verified 08/15/22 21:37 Review of Systems Review of Systems: All systems reviewed & are unremarkable except as noted in HPI and below PMFSH Past Medical History Medical History Anemia of chronic disease Anxiety BPH (benign prostatic hyperplasia) Cerebrovascular accident (10/27/18) Chest pain Chest pain Chronic narcotic use Chronic renal failure, stage 3 (moderate) Dementia History of stroke Hyperlipidemia Hypertension Hyponatremia Insulin dependent diabetes mellitus Metabolic acidosis Stroke Subdural hematoma Surgical History Surgical History Hip joint replacement status History of colostomy History of inguinal hernia repair S/P hip hemiarthroplasty Family History Family History Mother Diabetes mellitus Congestive heart failure Father Cerebrovascular accident Daughter Cancer Social History Social History Social History: The patient lives in [place] with his daughter Kelly who is his durable power workers compensation defense attorney for healthcare. He is a Former smoker. No alcohol or illicit substance abuse. Kelly Fernandez, daughter, is his surrogate decision maker. 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 The patient is Code status: Full code. Smoking status: Never smoker Alcohol intake: never Substance use: never Substance use type: does not use Lack of Transportation: No Lack of Food: Never True Current Housing: I Have Housing Concerned About Future Housing: No Difficulty Paying Gas/Electric Bills: No Difficulty Paying for Meds: No Currently Unemployed: No Education: High School Diploma/GED Difficulty w/ Childcare or Family Care: No Living arrangements: with family Additional living arrangements comments: Patient currently lives with his daughter Occupation/Education: retired Additional occupation/education comments: He is a retired banker Gender identity (if verbalized by the patient): Male Spiritual care concerns: No Exam Const: General: healthy appearing Nutritional Appearance: well nourished Orientation/consciousness: patient oriented x3 Limitations: no limitations HENMT: Head: normal to inspection Mouth: Yes Normal oral and palatal mucosa present Throat: posterior oropharynx normal Neck: Neck: normal visual inspection and no lymphadenopathy Chest: Chest palpation & inspection: tenderness Other: left lateral chest Resp: Effort & Inspection: normal respiratory effort Auscultation: clear to auscultation bilaterally Cardio: Rate: regular rate Rhythm: regular rhythm GI: Auscultation: normal bowel sounds Skin: General skin exam: normal color Wounds: no wounds Neuro: General: patient oriented x3, moves all extremities, no meningeal signs, no focal motor deficits and CN's II-XI intact bilaterally Cranial nerves: Yes Nystagmus not present Speech: normal speech Extrem: General: normal to inspection and no clubbi
[2023-02-09] MEDS: MORPHINE SULFATE (*CRX) 2 MG/ML INJ IV PUSH (15:22)
[2023-02-09 15:40] LABS: Basophils Absolute Auto 0.1 K/mm3 (0.0-0.1); Basophils Percent Auto 0.4 % (0.2-1.2); Eosinophils Absolute Auto 0.9 K/mm3 (0-0.3); Eosinophils Percent Auto 6.7 % (0-4.4); Hematocrit 35.7 % (42.0-52.0); Hemoglobin 11.4 g/dL (14.0-18.0); Immature Granulocyte Absolute 0.06 K/mm3 (0.00-0.031); Immature Granulocyte Percent A 0.4 % (0-0.5); Lymphocytes Absolute Auto 0.96 K/mm3 (0.9-3.2); Lymphocytes Percent Auto 7.2 % (18.3-44.2); Mean Corpuscular HGB Conc 31.9 g/dl (32-36); Mean Corpuscular Hemoglobin 27.3 pg (26-34); Mean Corpuscular Volume 85.4 fl (80-100); Mean Platelet Volume 9.1 fl (7.4-10.4); Monocytes Absolute Auto 0.7 K/mm3 (0.1-0.6); Monocytes Percent Auto 4.9 % (2.6-8.5); Neutrophils Absolute Auto 10.7 K/mm3 (1.3-6.7); Neutrophils Percent Auto 80.4 % (45.5-73.1); Platelet Count Result 221 k/mm3 (150-375); Red Blood Count 4.18 M/mm3 (4.6-6.20); Red Cell Distribution Width 14.9 % (11.5-14.5); White Blood Count 13.4 K/mm3 (4.5-10.0)
[2023-02-09 15:46] LABS: Appearance Urine Clear (Clear); Bacteria Urine None Seen /hpf; Bilirubin Urine Negative (Negative); Blood Urine 1+ (Negative); Color Urine Yellow (Yellow); Glucose Urine UA Negative (Negative); Ketones Urine Negative (Negative); Leukocyte Esterase Ur Negative LEU/UL (Negative); Nitrate Urine Negative (Negative); Non Pathogenic Casts 0-2; Protein Urine 3+ mg/dL (Negative); Specific Grav Ur 1.012 (1.001-1.035); Squamous Epithelial Cell Urine None seen /hpf (Few); Urobilinogen Urine 0.2 mg/dL (<2.0); WBC Urine 0-5 /hpf
[2023-02-09 15:49] LABS: Add Urine Microscopic? YES
--- NOTE | 2023-02-09 15:50 | PC.NURSE ---
called radiology to add reading regarding Left rib pain. radiology unable to contact radiologist. new order placed.
[2023-02-09 15:51] LABS: INR 1.2; Prothrombin Time 15.2 Seconds (11.1-14.7)
[2023-02-09 15:52] LABS: Partial Thromboplastin Time 32.8 SECONDS (22.3-36.8)
[2023-02-09 16:03] LABS: Lactic Acid Reflex 1.2 mmol/L (0.7-2.0)
[2023-02-09 16:06] LABS: Alanine Aminotransferase 13 U/L (6-50); Albumin Level 4.3 g/dL (3.5-5.1); Alkaline Phosphatase 75 U/L (38-126); Anion Gap 9 mmol/L (8-16); Aspartate Amino Transferase 19 U/L (17-59); Bilirubin,Total 0.4 mg/dL (0.2-1.3); Blood Urea Nitrogen 27 mg/dL (9-20); CRP 1.1 mg/dL (<1.0); Calcium 8.6 mg/dL (8.4-10.2); Carbon Dioxide 30 mmol/L (22-30); Chloride 100 mmol/L (98-107); Estimated CRCL calculation 22 ml/min; Estimated Glomerular Filt Rate 26; Glucose 132 mg/dL (65-110); Potassium 4.4 mmol/L (3.4-5.0); Sodium 139 mmol/L (137-145)
[2023-02-09] MEDS: SODIUM CHLORIDE 0.9% IV 500 ML 999 ML IV CONT (16:39)
[2023-02-09 16:51] LABS: Influenza A QL RT-PCR Negative (Negative); Influenza B QL RT-PCR Negative (Negative); SARS-CoV-2 RNA PCR Negative (Negative)
== END 2023-02-09 18:40 ==
PROVIDERS: Emergency Provider Emergency Medicine; PCP Internal Medicine
DX: S20.212A Contusion of left front wall of thorax, initial encounter (principal); Z20.822 Contact with and (suspected) exposure to COVID-19; E11.22 Type 2 diabetes mellitus with diabetic chronic kidney disease; N18.30 Chronic kidney disease, stage 3 unspecified; E78.5 Hyperlipidemia, unspecified; D63.8 Anemia in other chronic diseases classified elsewhere; E87.20 Acidosis, unspecified; N40.0 Benign prostatic hyperplasia without lower urinary tract symptoms; Z96.649 Presence of unspecified artificial hip joint; Z86.73 Personal history of transient ischemic attack (TIA), and cerebral infarction without residual deficits; Z79.4 Long term (current) use of insulin; Z79.01 Long term (current) use of anticoagulants; R91.8 Other nonspecific abnormal finding of lung field; W18.39XA Other fall on same level, initial encounter
CPT/HCPCS: 36415; 71046; 71100; 80053; 81001; 83605; 85025; 85610; 85730; 86140; 87040; 87636; 96361; 96374; 99284; J2270; J7040

== ENCOUNTER 2023-11-04 07:56 | Inpatient (IN) | payer MEDICARE, MEDICAID, SELFPAY ==
[2023-11-04] VITALS (48 sets, daily range): BP systolic 146–184; BP diastolic 86–123; PULSE 59–106; RESP 13–27; TEMP 36.2–36.6; O2SAT 95–100; BMI 20.8
--- NOTE | ~2023-11-04 | CT_ITS ---
EXAMINATION: CT chest abdomen pelvis wo con DATE: 11/04/2023 21:32 CDT INDICATION: Chest pain. TECHNIQUE: Computed tomography (CT) of the chest, abdomen, and pelvis was performed without intraveno us contrast. The dose-length product was 657.90 mGy-cm. Automated exposure control and iterative medardo nstruction technique were employed. COMPARISON: Chest x-ray dated 11/04/[address] dated 11/13/2022 FINDINGS: CHEST CT: There is a 1.5 cm irregular shaped mass of the right upper lobe, image 55. There is patchy groundglas s opacities of the right upper and middle lobe, consistent with pneumonia. There is mediastinal lymph adenopathy. There are calcified granulomas of the mediastinum. There is atherosclerosis of the aorta and coronary arteries. No significant pleural or pericardial effusion. There is emphysema. There is d ependent atelectasis. No endobronchial lesions. ABDOMEN/PELVIS CT: There are calcified granulomas of the spleen. There are calcified granulomas of the liver. Gallbladde r is present and contains stones. The pancreas, adrenal glands nonobstructive bowel gas pattern. Ther e is a parastomal hernia containing nonobstructed bowel. Nonobstructive bowel gas pattern. There is a therosclerosis there is an infrarenal abdominal aortic aneurysm measuring 3.7 cm. There is 4.1 cm lef t renal cyst. There is a left total hip arthroplasty. There are new compression fractures of T12 and L1. There is an L1 burst fracture with minimal retropulsion posteriorly into the canal measuring 1-2 mm. IMPRESSION: 1. Irregular shaped right upper lobe mass measuring 1.5 cm, suspicious for bronchogenic carcinoma. Re commend follow-up percutaneous biopsy or pet/CT scan for further assessment. 2: Patchy groundglass opacities of the right upper and middle lobe consistent with pneumonia. Medias tinal lymphadenopathy, likely reactive. 3: Infrarenal abdominal aortic aneurysm measuring 3.7 cm. 4: Multiple new compression fractures with burst fracture at L1. There is approximately 40% loss of vertebral body height with retropulsion posteriorly into the canal measuring 1-2 mm. Reviewed, dictated and finalized at location A. IMPRESSION: 1. Irregular shaped right upper lobe mass measuring 1.5 cm, suspicious for bron chogenic carcinoma. Recommend follow-up percutaneous biopsy or pet/CT scan for further assessment. 2: Patchy groundglass opacities of the right upper and middle lobe consistent with pneumonia. Mediastinal lymphadenopathy, likely reactive. 3: Infrarenal abdominal aortic aneurysm measuring 3.7 cm. 4: Multiple new compression fractures with burst fracture at L1. There is appr oximately 40% loss of vertebral body height with retropulsion posteriorly into the canal measuring 1-2 mm.
--- NOTE | ~2023-11-04 | XR_ITS ---
EXAMINATION: XR chest 2V DATE: 11/04/2023 08:26 INDICATION: Left-sided chest pain. Hypertension. TECHNIQUE: frontal and lateral views of the chest were obtained. COMPARISON: Chest radiograph dated 02/09/2023 FINDINGS: Focal airspace opacity in the right midlung zone. Unchanged mild linear discoid atelectasis/scarring at the right lung base. Calcified nodules in the left midlung zone and calcified mediastinal lymph no shawanda consistent with old granulomatous disease. Heart size is normal. Tortuous thoracic aorta. Interva l progression of a lower thoracic compression fracture, likely T11 with new compression fracture of t he immediately more caudal vertebral body likely T12. IMPRESSION: 1. Airspace opacities in the right midlung zone which in acute setting could represent atelectasis or pneumonia. Consider either further evaluation with chest CT or follow-up radiographs to document res olution. Reviewed, dictated and finalized at location L. IMPRESSION: 1. Airspace opacities in the right midlung zone which in acute setting could re present atelectasis or pneumonia. Consider either further evaluation with chest CT or follow-up radiographs to document resolution.
--- NOTE | 2023-11-04 08:01 | ECG_ITS ---
Measurements Intervals [place] Rate: 77 P: -44 [place]: 168 QRS: -32 QRSD: 97 T: 49 QT: 398 QTc: 453 Interpretive Statements SINUS RHYTHM ATRIAL AND VENTRICULAR PREMATURE COMPLEXES LEFT AXIS DEVIATION VOLTAGE CRITERIA FOR LVH BORDERLINE ECG COMPARED TO ECG 11/12/2022 16:44:42 LEFT-AXIS DEVIATION NOW PRESENT Electronically Signed On 11-04-2023 9:32:26 CDT by Billy Celis D.O.
[2023-11-04 08:13] LABS: Basophils Absolute Auto 0.1 K/mm3 (0.0-0.1); Basophils Percent Auto 0.5 % (0.2-1.2); Eosinophils Percent Auto 10.1 % (0-4.4); Hematocrit 34.4 % (42.0-52.0); Hemoglobin 10.9 g/dL (14.0-18.0); Immature Granulocyte Absolute 0.02 K/mm3 (0.00-0.031); Immature Granulocyte Percent A 0.2 % (0-0.5); Lymphocytes Absolute Auto 1.81 K/mm3 (0.9-3.2); Lymphocytes Percent Auto 17.6 % (18.3-44.2); Mean Corpuscular HGB Conc 31.7 g/dl (32-36); Mean Corpuscular Hemoglobin 26.5 pg (26-34); Mean Corpuscular Volume 83.7 fl (80-100); Mean Platelet Volume 9.9 fl (7.4-10.4); Monocytes Absolute Auto 0.7 K/mm3 (0.1-0.6); Monocytes Percent Auto 7.2 % (2.6-8.5); Neutrophils Absolute Auto 6.6 K/mm3 (1.3-6.7); Neutrophils Percent Auto 64.4 % (45.5-73.1); Platelet Count Result 274 k/mm3 (150-375); Red Blood Count 4.11 M/mm3 (4.6-6.20); Red Cell Distribution Width 14.6 % (11.5-14.5); White Blood Count 10.3 K/mm3 (4.5-10.0)
[2023-11-04 08:24] LABS: Alanine Aminotransferase 12 U/L (6-50); Albumin Level 4.2 g/dL (3.5-5.1); Alkaline Phosphatase 68 U/L (38-126); Anion Gap 9 mmol/L (8-16); Aspartate Amino Transferase 17 U/L (17-59); Bilirubin,Total 0.6 mg/dL (0.2-1.3); Blood Urea Nitrogen 36 mg/dL (9-20); Calcium 9.1 mg/dL (8.4-10.2); Carbon Dioxide 26 mmol/L (22-30); Chloride 102 mmol/L (98-107); Estimated CRCL calculation 19 ml/min; Estimated Glomerular Filt Rate 24; Glucose 152 mg/dL (65-110); Lipase 40 U/L (23-300); Potassium 3.9 mmol/L (3.4-5.0); Sodium 137 mmol/L (137-145)
[2023-11-04 08:35] LABS: Troponin I 0.015 ng/mL (0.000-0.034)
[2023-11-04 08:38] LABS: INR 1.3; Prothrombin Time 16.6 Seconds (11.1-14.7)
[2023-11-04 08:39] LABS: Partial Thromboplastin Time 40.1 Seconds (22.3-36.8)
--- NOTE | 2023-11-04 09:31 | ED.GENADULT ---
HPI - General Adult General Chief complaint: Chest Pain Stated complaint: chest pain Time Seen by Provider: 11/04/23 08:00 History of Present Illness HPI narrative: Patient is an 83-year-old male who presents ER with sudden onset left-sided chest pain. Burning in nature. No radiation to the shoulder or neck. It lasted for approximately 2 hours. No nausea vomiting or diaphoresis. No history of heart issues. Patient is on Eliquis. He is currently in rehab at [facility]. Related Data Home Medications Medication Instructions Recorded Confirmed insulin detemir U-100 100 unit/mL 12 unit subcut HS 06/18/22 10/28/23 (3 mL) subcutaneous pen (Levemir FlexTouch U-100 Insulin) tamsulosin 0.4 mg capsule 0.4 mg PO DAILY 06/18/22 10/28/23 Allergies Allergy/AdvReac Type Severity Reaction Status Date / Time No Known Allergies Allergy Verified 08/15/22 21:37 Review of Systems Review of Systems: All systems reviewed & are unremarkable except as noted in HPI and below Constitutional: Constitutional: Reports no additional constitutional complaints ENT: Reports system reviewed and no additional complaints, except as documented Cardiovascular: Cardiovascular: Reports chest pain, Denies rapid heart rate and Denies radiating jaw, neck or arm pain Respiratory: Respiratory: Reports no additional respiratory complaints Gastrointestinal: Gastrointestinal: Reports no additional gastrointestinal complaints Musculoskeletal: Musculoskeletal: Reports no additional musculoskeletal complaints [facility] Past Medical History Medical History Anemia of chronic disease Anxiety BPH (benign prostatic hyperplasia) Cerebrovascular accident (10/27/18) Chest pain Chest pain Chronic narcotic use Chronic renal failure, stage 3 (moderate) Dementia History of stroke Hyperlipidemia Hypertension Hyponatremia Insulin dependent diabetes mellitus Metabolic acidosis Stroke Subdural hematoma Surgical History Surgical History Hip joint replacement status History of colostomy History of inguinal hernia repair S/P hip hemiarthroplasty Family History Family History Mother Diabetes mellitus Congestive heart failure Father Cerebrovascular accident Daughter Cancer Social History Social History Social History: The patient lives in [place] with his daughter Kelly who is his durable power workers compensation defense attorney for healthcare. He is a Former smoker. No alcohol or illicit substance abuse. Kelly Fernandez, daughter, is his surrogate decision maker. 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 The patient is Code status: Full code. Smoking status: Never smoker Alcohol intake: never Substance use: never Substance use type: does not use Lack of Transportation: No Lack of Food: Never True Current Housing: I Have Housing Concerned About Future Housing: No Difficulty Paying Gas/Electric Bills: No Difficulty Paying for Meds: No Currently Unemployed: No Education: High School Diploma/GED Difficulty w/ Childcare or Family Care: No Living arrangements: with family Additional living arrangements comments: Patient currently lives with his daughter Occupation/Education: retired Additional occupation/education comments: He is a retired banker Gender identity (if verbalized by the patient): Male Spiritual care concerns: No Exam Narrative: GENERAL: Well-appearing, well-nourished, and in no acute distress. HEAD: Normocephalic, atraumatic. ENT: Mucous membranes moist. CHEST: Clear to auscultation. No respiratory distress. HEART: Regular rate and rhythm. No murmur heard. Normal peripheral pulses. ABDOMEN: Soft, nontender, non
--- NOTE | 2023-11-04 11:06 | ECG_ITS ---
Measurements Intervals [place] Rate: 62 P: -59 MN: 187 QRS: -33 QRSD: 88 T: 63 QT: 457 QTc: 465 Interpretive Statements SINUS RHYTHM ATRIAL AND VENTRICULAR PREMATURE COMPLEXES LEFT AXIS DEVIATION NONSPECIFIC ST & T-WAVE ABNORMALITY- LAT/HIGH LAT LEADS BASELINE ARTIFACT- I, II, III, AVL, AVF BORDERLINE ECG COMPARED TO ECG 11/04/2023 07:53:06 ST-T WAVE ABNORMALITY NOW PRESENT Electronically Signed On 11-04-2023 11:20:52 CDT by Billy Celis D.O.
--- NOTE | 2023-11-04 11:13 | PC.NURSE ---
Called dietary and ordered lunch tray for pt at this time.
[2023-11-04 11:27] LABS: Troponin I 0.014 ng/mL (0.000-0.034)
--- NOTE | 2023-11-04 14:09 | ECG_ITS ---
Measurements Intervals [place] Rate: 63 P: -75 NE: 134 QRS: -34 QRSD: 98 T: 61 QT: 477 QTc: 489 Interpretive Statements SINUS RHYTHM ATRIAL AND VENTRICULAR PREMATURE COMPLEXES LEFT AXIS DEVIATION VOLTAGE CRITERIA FOR LVH NONSPECIFIC ST & T-WAVE ABNORMALITY- LAT/HIGH LAT LEADS BASELINE ARTIFACT- II, III, AVF BORDERLINE ECG COMPARED TO ECG 11/04/2023 11:13:49 NO SIGNIFICANT CHANGES Electronically Signed On 11-04-2023 14:29:14 CDT by Billy Celis D.O.
[2023-11-04 15:02] LABS: Troponin I 0.014 ng/mL (0.000-0.034)
--- NOTE | 2023-11-04 15:23 | PC.NURSE ---
Per daughter request, voicemail left for Kelly at [phone] with bed number.
--- NOTE | 2023-11-04 15:57 | PM.IMHP ---
H&P: HPI History of Present Illness Date/Time: 11/04/23 15:57 Chief Complaint: Chest Pain Narrative: 83 y/o M presents here with chest pain with PMH of Afib (chronic/paroxysmal?) on Eliquis, anemia secondary to chronic disease, CVA (deficits?, 2019), CKD S3, dementia, HLD, HTN, hyponatremia, and DM. Patient presented to [place] ED via EMS from [facility] for evaluation of R sided chest pain. Patient reports he initially experienced the R sided chest pain that started for the past few days. Patient was sitting in his wheelchair when CP occurred. No radiation. Described as achy, constant, and mild. Never fully resolved until he was given 81 mg of ASA by EMS. Same R sided CP reoccurred today when he woke up and then later developed pain in the right side of his chest. Described as burning with associated palpitations ( heart flutters ) and anxiety/fear. When he reported symptoms to staff at [facility], BP was 300's?/100's per patient report. Arrived to the ED hyperintensive. Patient reports he did not get his morning HTN medications. No associated nausea, diaphoresis, neck pain, jaw pain, shoulder/upper extremity pain, fatigue, shortness of breath, or syncope. Denies previous hx of CAD or TX. Denies any body aches, fever, chills, or cough. No recent illnesses. Patient somewhat difficult historian. Initial VS at presentation: 97.8 F, HR 79, RR 17, 159/120 100% on RA. ED workup showed: WBC 10.3, Hgb 10.9, INR 1.3 creatinine 2.6 (previously 2.4 in 01/2023), initial troponin 0.015, and CXR showed airspace opacity in the right midlung zone (atelectasis vs pneumonia). Review of Systems Review of Systems: All systems reviewed & are unremarkable except as noted in HPI and below PMFSH Past Medical History Medical History Anemia of chronic disease Anxiety BPH (benign prostatic hyperplasia) Cerebrovascular accident (10/27/18) Chest pain Chest pain Chronic narcotic use Chronic renal failure, stage 3 (moderate) Dementia History of stroke Hyperlipidemia Hypertension Hyponatremia Insulin dependent diabetes mellitus Metabolic acidosis Stroke Subdural hematoma Surgical History Surgical History Hip joint replacement status History of colostomy History of inguinal hernia repair S/P hip hemiarthroplasty Family History Family History Mother Diabetes mellitus Congestive heart failure Father Cerebrovascular accident Daughter Cancer Social History Social History Social History: The patient lives in [place] with his daughter Kelly who is his durable power employee benefits attorney for healthcare. He is a Former smoker. No alcohol or illicit substance abuse. Kelly Fernandez, daughter, is his surrogate decision maker. 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 The patient is Code status: Full code. 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
--- NOTE | 2023-11-04 16:45 | ADMGEN ---
This patient, Vitaly Hatfield, was admitted to IMU Room 214-01. Patient/family oriented to hospital policies and general routines including ID bracelet, bed and alarms, visiting hours, pain management, procedures, bathroom and other care routines, personal items, smoking policy, room service/diet, and visiting hours. Information on how to activate the Rapid Response Team has been discussed. Patient/Family are encouraged to report perceived risks to care and to ask questions if they do not understand what they are told or what they should do.
[2023-11-04] MEDS: hydrALAZINE HCL 20 MG/ML VIAL 10 MG IV PUSH (17:28)
[2023-11-04] MEDS: LACTATED RINGERS 1,000 ML 100 ML IV CONT (17:30)
[2023-11-04 19:01] LABS: MRSA (PCR) NOT DETECTED (NOT DETECTE)
[2023-11-04] MEDS: APIXABAN 2.5 MG TABLET PO (21:23)
[2023-11-04] MEDS: HYDROcodone/acetaminophen (*CRX) 10-325 MG TABLET 1 TAB PO (21:23)
[2023-11-04] MEDS: ALPRAZolam (*CRX) 0.5 MG TABLET 1 MG PO (21:24)
[2023-11-04] MEDS: INSULIN GLARGINE (*BKC) 100 UNITS/ML 10 UNITS SUB-Q (21:24)
[2023-11-04 21:31] LABS: Glucose Point of Care 159 mg/dl (65-105)
[2023-11-05] VITALS (13 sets, daily range): BP systolic 129–180; BP diastolic 69–103; PULSE 61–95; RESP 12–20; TEMP 36.1–36.9; O2SAT 94–100
[2023-11-05] MEDS: hydrALAZINE HCL 20 MG/ML VIAL 10 MG IV PUSH ×2 (00:07→20:44)
[2023-11-05] MEDS: AZITHROMYCIN 500 MG/NS 250 ML 500 MG/250 ML BAG 250 MG IVPB ×2 (00:08→21:25)
[2023-11-05] MEDS: IBUPROFEN 600 MG TABLET PO ×3 (05:24→20:43)
[2023-11-05] MEDS: HYDROcodone/acetaminophen (*CRX) 10-325 MG TABLET 1 TAB PO ×2 (05:24→17:35)
[2023-11-05 05:39] LABS: Basophils Percent Auto 0.5 % (0.2-1.2); Eosinophils Absolute Auto 1.3 K/mm3 (0-0.3); Eosinophils Percent Auto 16.9 % (0-4.4); Hematocrit 33.5 % (42.0-52.0); Hemoglobin 10.4 g/dL (14.0-18.0); Immature Granulocyte Absolute 0.02 K/mm3 (0.00-0.031); Immature Granulocyte Percent A 0.3 % (0-0.5); Lymphocytes Absolute Auto 1.33 K/mm3 (0.9-3.2); Lymphocytes Percent Auto 17.8 % (18.3-44.2); Mean Corpuscular Hemoglobin 26.1 pg (26-34); Monocytes Absolute Auto 0.6 K/mm3 (0.1-0.6); Monocytes Percent Auto 7.8 % (2.6-8.5); Neutrophils Absolute Auto 4.2 K/mm3 (1.3-6.7); Neutrophils Percent Auto 56.7 % (45.5-73.1); Platelet Count Result 262 k/mm3 (150-375); Red Blood Count 3.99 M/mm3 (4.6-6.20); Red Cell Distribution Width 14.6 % (11.5-14.5); White Blood Count 7.5 K/mm3 (4.5-10.0)
[2023-11-05 05:55] LABS: Alanine Aminotransferase 9 U/L (6-50); Albumin Level 3.7 g/dL (3.5-5.1); Alkaline Phosphatase 66 U/L (38-126); Anion Gap 8 mmol/L (8-16); Aspartate Amino Transferase 22 U/L (17-59); Bilirubin,Total 0.4 mg/dL (0.2-1.3); Blood Urea Nitrogen 35 mg/dL (9-20); Calcium 8.8 mg/dL (8.4-10.2); Carbon Dioxide 23 mmol/L (22-30); Chloride 103 mmol/L (98-107); Estimated CRCL calculation 22 ml/min; Estimated Glomerular Filt Rate 29; Glucose 145 mg/dL (65-110); Potassium 3.7 mmol/L (3.4-5.0); Sodium 134 mmol/L (137-145)
[2023-11-05 07:25] LABS: Glucose Point of Care 142 mg/dl (65-105)
[2023-11-05] MEDS: TAMSULOSIN HCL 0.4 MG CAPSULE PO (09:54)
[2023-11-05] MEDS: amLODIPine BESYLATE 2.5 MG TABLET PO (09:54)
[2023-11-05] MEDS: ALPRAZolam (*CRX) 0.5 MG TABLET 1 MG PO ×2 (09:54→20:43)
[2023-11-05] MEDS: APIXABAN 2.5 MG TABLET PO ×2 (09:54→20:43)
[2023-11-05] MEDS: METOPROLOL SUCCINATE EXT REL 12.5 MG TABCR PO (09:54)
[2023-11-05] MEDS: FAMOTIDINE 20 MG TABLET PO (09:54)
[2023-11-05 11:49] LABS: Glucose Point of Care 122 mg/dl (65-105)
--- NOTE | 2023-11-05 13:25 | PC.NURSE ---
This patient, Vitaly Hatfield, was transferred to [facility] on 11/05/23 at 1325. Personal belongings sent with patient. Report given to Shelli LOZANO. Appropriate documentation sent with patient.
--- NOTE | 2023-11-05 13:26 | PC.NURSE ---
This patient, Vitaly Hatfield, was received from [imu] on 11/05/23 at 1325. Patient/family oriented to unit policies and routines. Report from Arvin
--- NOTE | 2023-11-05 14:47 | PCOTNOTE ---
Attempted to see pt. for occupational therapy evaluation. Pt. waiting for TLSO brace due to acute vertebral fx.
[2023-11-05 16:32] LABS: Glucose Point of Care 134 mg/dl (65-105)
--- NOTE | 2023-11-05 16:49 | PDONCCN ---
HPI - Date of Consult Date/Time: 11/05/23 16:49 Requesting Physician: Lakhwinder Espinal MD Primary Care Provider: Ming Beyer, - Consult Narrative Reason for consult: Lung mass Narrative: Vitaly Hatfield is a 83 year old male with history of atrial fibrillation on Eliquis along with history of chronic anemia and CVA. He also has history of CKD stage 3 and dementia. Patient is the [facility] assisted living resident. He came into the hospital with right-sided chest discomfort for few days duration. Patient has no previous history of malignancy. He denies any history of smoking. He has lost almost 40-50 lb weight with diet change. Patient had CT scan chest abdomen and pelvis done that showed irregular right upper lobe mass 1.5 cm suspicious for bronchogenic carcinoma along with compression fracture of L1. He denies any shortness of breath and hemoptysis. No other new complaints. Review of Systems - Review of Systems All systems reviewed & are unremarkable except as noted in [facility] and [facility] Medical History: Medical History (Last Reviewed 11/04/23 @ 16:08 by Valarie Hairston APRN) Anemia of chronic disease Anxiety BPH (benign prostatic hyperplasia) Cerebrovascular accident Onset Date: 10/27/18 Chest pain Chest pain Chronic narcotic use Chronic renal failure, stage 3 (moderate) Dementia History of stroke Hyperlipidemia Hypertension Hyponatremia Insulin dependent diabetes mellitus Metabolic acidosis Stroke Subdural hematoma Surgical History: Surgical History (Last Reviewed 11/04/23 @ 16:08 by Valarie Hairston APRN) Hip joint replacement status History of colostomy History of inguinal hernia repair S/P hip hemiarthroplasty Family History: Family History (Last Reviewed 11/04/23 @ 16:08 by Valarie Hairston APRN) Mother Diabetes mellitus Congestive heart failure Father Cerebrovascular accident Daughter Cancer - Social History Social History: Social History (Last Reviewed 11/04/23 @ 16:08 by Valarie Hairston APRN) Gender Identity: Gender identity (if verbalized by the patient): Male Alcohol Use: Alcohol intake: unknown Substance Use: Substance use: unknown Substance use type: does not use Others: Spiritual care concerns: No Living Arrangements: Living arrangements: with family Oppucation/Education: Occupation/Education: retired Smoking Status: Smoking status: Former smoker Social Determinants of Health: Do You Feel Safe in your Home?: Yes Has the Lack of Transportation Kept You From Medical Appointments or From Getting Medications?: No Within the Past 12 Months, Were You Worried Whether Your Food Would Run Out Before You Got Money to Buy More?: Never True What is Your Housing Situation Today?: I Have Housing Are You Worried That in the Next 2 Months, You May Not Have Your Own Housing to Live In?: No Do You Have Trouble Paying Your Heating Or Electricity Bill?: No Do You Have Trouble Paying For Medicines?: No Are You Currently Unemployed and Looking for Work?: No Highest Level of Education Completed: High School Diploma/GED Do You Have Trouble With Childcare or the Care of a Family Member?: No Exam - Vital Signs Vital Signs - 24 hr 11/04/23 18:00 11/04/23 20:46 11/04/23 20:00 Temperature 36.4 C L Pulse Rate 71 93 87 Respiratory Rate 20 Blood Pressure 149/96 H Pulse Oximetry 98 Oxygen Delivery 11/04/23 21:05 11/04/23 22:00 11/04/23 23:48 Temperature 36.4 C Pulse Rate 93 106 H 95 Respiratory Rate 20 20 Blood Pressure 163/108 H Pulse Oximetry 98 97 Oxygen Delivery Room Air 11/05/23 00:00 11/05/23 00:00 11/05/23 02:00 Temperature Pulse Rate 95 88 91 Respiratory Rate 20 Blood Pressure Pulse Oximetry 97 Oxygen Delivery Room Air 11/05/23 04:00 11/05/23 04:00 11/05/23 05:52 Temperature 36.4 C L Pulse Rate 94 94 80 R
--- NOTE | 2023-11-05 18:56 | PM.IMPN ---
Progress Note: A&P Assessment and Plan (1) Chest pain: Code(s): R07.9 - Chest pain, unspecified Status: Acute Assessment and Plan: - EKG, initial: Sinus rhythm, atrial and ventricular premature complexes, left axis deviation, voltage criteria for LVH, borderline EKG. When compared to EKG done in 10/2022, left axis deviation now present. - EKG, most recent repeat: No significant changes compared to previous EKG done earlier today. - Troponin: 0.015 -> 0.014 -> 0.014 - cardiac etiology ruled out, chest pain has resolved - ASA 81 mg given by NH (2) Chronic renal failure, stage 3 (moderate): Code(s): N18.30 - Chronic kidney disease, stage 3 unspecified Status: Acute Assessment and Plan: - creatinine 2.6 - previously 2.4 on 02/09/2023 - GFR 24, ECC 19, BUN 36 - LR 100 mL/hr x1L - trend renal function (3) Atrial fibrillation: Code(s): I48.91 - Unspecified atrial fibrillation Status: Acute Assessment and Plan: - likely paroxysmal, however patient is unsure if it is paroxysmal vs chronic - initial EKG: sinus rhythm with rate of 77 - continue home medications: Continue metoprolol and Eliquis. Of note, patient does take ibuprofen at home. - tele monitoring in place due to chest pain workup (4) Insulin dependent diabetes mellitus: Status: Chronic Assessment and Plan: - hypoglycemia protocol - POC blood glucose ACHS - home medication resumed/held - Levemir 10 units HS - correct regimen ordered - low dose TIDWM and HS - A1C 6.8% on 11/13/22 (5) Hypertension: Code(s): I10 - Essential (primary) hypertension Status: Chronic Assessment and Plan: - chronic, currently 184/94 - continue home medications: Amlodipine 2.5 mg p.o. daily, metoprolol 12.5 mg ER p.o. daily - monitor (6) Abnormal CT scan, chest: Code(s): R93.89 - Abnormal findings on diagnostic imaging of other specified body structures Status: Acute Assessment and Plan: - CXR: Airspace opacities in the right midlung zone which in acute setting could represent atelectasis or pneumonia. Consider either further evaluation with chest CT or follow-up radiographs to document resolution. - CT non-con ordered which showed irregular right upper lobe mass measuring 1.5 cm, suspicious for bronchogenic carcinoma - Oncology and Pulmonary evaluations ordered for evaluation and further treatment recommendations - no fever, chills or body aches. no recent illness to suggest PNA, but cannot exclude... Monitor patient closely (7) AAA (abdominal aortic aneurysm): Code(s): I71.40 - Abdominal aortic aneurysm, without rupture, unspecified Status: Acute Assessment and Plan: 3.7 cm infrarenal abdominal aortic aneurysm diagnosed on abdominal CT scan Needs to be monitored closely as an outpatient (8) Compression fracture of body of thoracic vertebra: Code(s): S22.000A - Wedge compression fracture of unspecified thoracic vertebra, initial encounter for closed fracture Status: Acute Assessment and Plan: TLSO brace ordered Pain meds p.r.n. as needed Plan ? Patient seen and examined at bedside during my morning rounds ? Collaborated with patient's nurse at the bedside in detail and addressed all concerns ? Labs, electrolytes, radiology, investigations and test results reviewed ? Consult/Nursing/Ancilliary notes on the chart reviewed and appreciated ? Spoke with patient/family at the bedside and answered all the questions that they had Repeat labs in a.m. Electrolyte replacement as per protocol. Patient will be monitored very closely on the floor. Further recommendations as per the hospital course. Diet: Heart healthy GI Prophylaxis: Not indicated DVT Prophylaxis: Continue home Eliquis, SCDs Lines: Peripheral Code Status: Full code Time Spent With Patient Time with patient: 15 - 25 minutes Subjective Date/time seen: 11/05/23
[2023-11-05 20:33] LABS: Glucose Point of Care 154 mg/dl (65-105)
[2023-11-05] MEDS: INSULIN GLARGINE (*BKC) 100 UNITS/ML 10 UNITS SUB-Q (20:45)
[2023-11-06 04:00] VITALS: BP 174/95; PULSE 65; RESP 16; TEMP 36.6; O2SAT 96
[2023-11-06] MEDS: HYDROcodone/acetaminophen (*CRX) 10-325 MG TABLET 1 TAB PO (04:32)
[2023-11-06] MEDS: hydrALAZINE HCL 20 MG/ML VIAL 10 MG IV PUSH (04:33)
[2023-11-06] MEDS: IBUPROFEN 600 MG TABLET PO ×2 (05:39→13:43)
[2023-11-06 05:41] VITALS: BP 145/88
[2023-11-06 07:01] LABS: Basophils Absolute Auto 0.1 K/mm3 (0.0-0.1); Basophils Percent Auto 0.7 % (0.2-1.2); Eosinophils Absolute Auto 1.9 K/mm3 (0-0.3); Eosinophils Percent Auto 26.2 % (0-4.4); Hematocrit 34.4 % (42.0-52.0); Hemoglobin 10.2 g/dL (14.0-18.0); Immature Granulocyte Absolute 0.01 K/mm3 (0.00-0.031); Immature Granulocyte Percent A 0.1 % (0-0.5); Immature Platelet Fraction Pct 2.9 % (0.9-11.2); Lymphocytes Absolute Auto 1.54 K/mm3 (0.9-3.2); Lymphocytes Percent Auto 21.8 % (18.3-44.2); Mean Corpuscular HGB Conc 29.7 g/dl (32-36); Mean Corpuscular Hemoglobin 26.2 pg (26-34); Mean Corpuscular Volume 88.4 fl (80-100); Monocytes Absolute Auto 0.5 K/mm3 (0.1-0.6); Monocytes Percent Auto 7.4 % (2.6-8.5); Neutrophils Absolute Auto 3.1 K/mm3 (1.3-6.7); Neutrophils Percent Auto 43.8 % (45.5-73.1); Platelet Count Result 260 k/mm3 (150-375); Red Blood Count 3.89 M/mm3 (4.6-6.20); Red Cell Distribution Width 14.6 % (11.5-14.5); White Blood Count 7.1 K/mm3 (4.5-10.0)
[2023-11-06 07:13] LABS: Anion Gap 10 mmol/L (8-16); Blood Urea Nitrogen 40 mg/dL (9-20); Calcium 8.8 mg/dL (8.4-10.2); Carbon Dioxide 19 mmol/L (22-30); Chloride 105 mmol/L (98-107); Estimated CRCL calculation 21 ml/min; Estimated Glomerular Filt Rate 27; Glucose 98 mg/dL (65-110); Magnesium 2.1 mg/dL (1.6-2.3); Phosphorus 3.9 mg/dL (2.5-4.5); Potassium 3.9 mmol/L (3.4-5.0); Sodium 134 mmol/L (137-145)
[2023-11-06 07:24] LABS: Glucose Point of Care 101 mg/dl (65-105)
[2023-11-06 07:45] LABS: Platelet Estimate Adequate (Adequate)
[2023-11-06 07:46] LABS: Burr Cells 1+; Hypochromasia 1+; Schistocytes None Seen
[2023-11-06 08:15] VITALS: BP 153/88; PULSE 84; RESP 18; TEMP 36.6; O2SAT 99
[2023-11-06] MEDS: FAMOTIDINE 20 MG TABLET PO (08:26)
[2023-11-06] MEDS: ALPRAZolam (*CRX) 0.5 MG TABLET 1 MG PO (08:26)
[2023-11-06] MEDS: APIXABAN 2.5 MG TABLET PO (08:26)
[2023-11-06 08:27] VITALS: PULSE 75
[2023-11-06] MEDS: amLODIPine BESYLATE 2.5 MG TABLET PO (08:27)
[2023-11-06] MEDS: TAMSULOSIN HCL 0.4 MG CAPSULE PO (08:27)
[2023-11-06] MEDS: METOPROLOL SUCCINATE EXT REL 12.5 MG TABCR PO (08:27)
[2023-11-06 11:44] LABS: Glucose Point of Care 163 mg/dl (65-105)
[2023-11-06 12:00] VITALS: BP 128/90; PULSE 93; RESP 20; TEMP 36.3; O2SAT 99
[2023-11-06 13:44] LABS: SARS-CoV-2 RNA PCR Negative (Negative)
[2023-11-06] MEDS: AZITHROMYCIN 500 MG/NS 250 ML 500 MG/250 ML BAG 250 MG IVPB (15:04)
--- NOTE | 2023-11-06 15:15 | PM.DS ---
DS: Admitting Diagnosis Discharge Date 11/06/2023: Admitting Diagnosis Patient admitted with chest pain DS: Discharge Diagnosis Discharge Diagnosis (1) Compression fracture of body of thoracic vertebra: Code(s): S22.000A - Wedge compression fracture of unspecified thoracic vertebra, initial encounter for closed fracture Status: Acute (2) AAA (abdominal aortic aneurysm): Code(s): I71.40 - Abdominal aortic aneurysm, without rupture, unspecified Status: Acute (3) Abnormal CT scan, chest: Code(s): R93.89 - Abnormal findings on diagnostic imaging of other specified body structures Status: Acute (4) Chest pain: Code(s): R07.9 - Chest pain, unspecified Status: Acute (5) Rib contusion: Code(s): S20.219A - Contusion of unspecified front wall of thorax, initial encounter Status: Acute (6) AMS (altered mental status): Code(s): R41.82 - Altered mental status, unspecified Status: Acute (7) Dementia: Code(s): F03.90 - Unspecified dementia, unspecified severity, without behavioral disturbance, psychotic disturbance, mood disturbance, and anxiety Status: Acute (8) Anemia of chronic disease: Code(s): D63.8 - Anemia in other chronic diseases classified elsewhere Status: Acute (9) Chronic renal failure, stage 3 (moderate): Code(s): N18.30 - Chronic kidney disease, stage 3 unspecified Status: Acute (10) Pneumonia: Code(s): J18.9 - Pneumonia, unspecified organism Status: Acute (11) Atrial fibrillation: Code(s): I48.91 - Unspecified atrial fibrillation Status: Acute (12) BPH (benign prostatic hyperplasia): Code(s): N40.0 - Benign prostatic hyperplasia without lower urinary tract symptoms Status: Acute (13) GERD (gastroesophageal reflux disease): Code(s): K21.9 - Gastro-esophageal reflux disease without esophagitis Status: Acute (14) Anxiety: Code(s): F41.9 - Anxiety disorder, unspecified Status: Chronic (15) Hyperlipidemia: Code(s): E78.5 - Hyperlipidemia, unspecified Status: Chronic (16) Hypertension: Code(s): I10 - Essential (primary) hypertension Status: Chronic DS: Summary Hospital Course Reason for hospitalization: Patient admitted with chest pain Hospital Course: H&P: HPI History of Present Illness Date/Time: 11/04/23? 15:57 Chief Complaint: Chest Pain Narrative: 83 y/o M presents here with chest pain with PMH of Afib (chronic/paroxysmal?) on Eliquis, anemia secondary to chronic disease, CVA (deficits?, 2019), CKD S3, dementia, HLD, HTN, hyponatremia, and DM. Patient presented to [facility] ED via EMS from [facility] for evaluation of R sided chest pain. Patient reports he initially experienced the R sided chest pain that started for the past few days. Patient was sitting in his wheelchair when CP occurred. No radiation. Described as achy, constant, and mild. Never fully resolved until he was given 81 mg of ASA by EMS. Same R sided CP reoccurred today when he woke up and then later developed pain in the right side of his chest. Described as burning with associated palpitations ( heart flutters ) and anxiety/fear. When he reported symptoms to staff at [facility], BP was 300's?/100's per patient report. Arrived to the ED hyperintensive. Patient reports he did not get his morning HTN medications. No associated nausea, diaphoresis, neck pain, jaw pain, shoulder/upper extremity pain, fatigue, shortness of breath, or syncope. Denies previous hx of CAD or UT. Denies any body aches, fever, chills, or cough. No recent illnesses. Patient somewhat difficult historian. Initial VS at presentation:? 97.8 F, HR 79, RR 17, 159/120 100% on RA. ED workup showed:? WBC 10.3, Hgb 10.9, INR 1.3 creatinine 2.6 (previously 2.4 in 01/2023), initial troponin 0.015, and CXR showed airspace opacity in the right midlung zone (atelectasis vs pneumonia). ADDENDU
[2023-11-06 16:58] LABS: Glucose Point of Care 123 mg/dl (65-105)
== END 2023-11-06 17:40 | DRG 194 ==
LOC: ANHED 10:59 → ANHIMU 12:34 → ANH3MEDSUR 11-05 13:18
PROVIDERS: Student in an Organized Health Care Education/Training Program; Admitting Provider Internal Medicine; Emergency Provider Emergency Medicine; PCP Internal Medicine; Visit Provider Family Medicine
DX: J18.9 Pneumonia, unspecified organism (principal); I48.20 Chronic atrial fibrillation, unspecified; S32.010A Wedge compression fracture of first lumbar vertebra, initial encounter for closed fracture; I71.40 Abdominal aortic aneurysm, without rupture, unspecified; I12.9 Hypertensive chronic kidney disease with stage 1 through stage 4 chronic kidney disease, or unspecified chronic kidney disease; N18.30 Chronic kidney disease, stage 3 unspecified; N40.0 Benign prostatic hyperplasia without lower urinary tract symptoms; D63.8 Anemia in other chronic diseases classified elsewhere; R91.8 Other nonspecific abnormal finding of lung field; E11.22 Type 2 diabetes mellitus with diabetic chronic kidney disease; E78.5 Hyperlipidemia, unspecified; F03.90 Unspecified dementia, unspecified severity, without behavioral disturbance, psychotic disturbance, mood disturbance, and anxiety; F41.9 Anxiety disorder, unspecified; Z20.822 Contact with and (suspected) exposure to COVID-19; Z96.649 Presence of unspecified artificial hip joint; Z86.73 Personal history of transient ischemic attack (TIA), and cerebral infarction without residual deficits; Z79.01 Long term (current) use of anticoagulants; Z79.4 Long term (current) use of insulin
CPT/HCPCS: 36415; 71046; 71250; 74176; 80048; 80053; 82948; 83690; 83735; 84100; 84484; 85025; 85055; 85610; 85730; 87635; 87641; 93005; 96365; 96367; 96375; 97161; 97166; 99285; A9270; G0378; J0360; J0456; J0696; J1815; J7120

== ENCOUNTER 2023-11-25 07:26 | Outpatient (CLI) | payer MEDICARE, MEDICAID, SELFPAY ==
--- NOTE | ~2023-11-25 | PE_ITS ---
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 TECHNIQUE: Blood glucose level was 82 mg/dL. 9.533 mCi of 18-fluorodeoxyglucose (18-FDG) was administ ered i.v. Low dose computed tomography (CT) images were acquired from the base of the brain to the pr oximal thighs for attenuation correction and anatomic localization. Positron emission tomography (PET ) images were acquired in the same distribution beginning 59 minutes after injection. Images includin g fused PET/CT images were reconstructed in axial, coronal, and sagittal planes. Automated exposure c ontrol technique was employed. The dose-length product was 759.69mGy-cm. COMPARISON: CT chest, abdomen and pelvis dated 11/04/2023 FINDINGS: Head/neck: There is symmetric increased activity in the oral cavity, palatine tonsils, parotid glands, submandi bular glands, laryngeal muscles and ocular muscles without CT correlate, likely physiologic. No patho logically enlarged cervical lymphadenopathy or suspicious foci of increased FDG uptake in the visuali zed head or neck. There is symmetric mild likely physiologic uptake in the cervical paraspinal muscul ature as well as the bilateral trapezius muscles. Chest: 1.4 cm FDG avid right upper lobe mass with maximal SUV of 13 which is concerning for primary lung can cer. Additional patchy groundglass opacities in the right upper lobe have resolved. Atelectasis/scarring i n the right middle lobe along the right hemidiaphragm. Small calcified pulmonary nodules in the right middle lobe and bilateral lower lobes along with calcified bilateral hilar and mediastinal lymph nod es consistent with old granulomatous disease. No pleural effusion. Heart size is normal. Atherosclero tic coronary artery calcifications. Fusiform aneurysm of descending thoracic aorta which measures up to 4.4 similar in maximal diameter. No pathologically enlarged or FDG avid thoracic lymphadenopathy. There is additional likely physiologic diffuse FDG uptake in the thoracic paraspinal musculature and in the musculature of the bilateral upper extremities. Abdomen/pelvis/proximal thighs: Physiologic renal accumulation and excretion of FDG activity in the kidneys, bladder and along portio ns of ureters. Photopenic defect associated with a 4 cm low-attenuation exophytic left renal cyst. Th ere are few scattered hepatic and splenic calcifications consistent with old granulomatous disease. N ormal degree and heterogenous pattern of increased uptake throughout the liver without radiologic cor relate or dominant FDG avid lesion. There are few tiny high and low attenuation gallstones along the dependent aspect of the otherwise normal-appearing gallbladder. The pancreas and bilateral adrenal gl ands are normal. Mild uptake scattered throughout the bowels without radiologic correlate, also likel y physiologic. Left lower quadrant ostomy with parastomal hernia containing short segment of nonobstr ucted small bowel. There is calcified atherosclerosis of the aorta and many of the other arteries. E ctatic infrarenal abdominal aorta which measures up to 3.5 cm in maximal diameter. Prostatomegaly viry suring 4.7 x 4.7 cm. There is mild likely physiologic uptake in the bilateral sartorius muscles, left slightly more prominent than right. No other abnormal foci of increased FDG uptake or pathologically enlarged lymphadenopathy in the abdomen, pelvis or proximal thighs. Musculoskeletal: Comment streak artifact associated with a left total hip arthroplasty. No suspicious lytic, blastic o r FDG avid bone lesions. IMPRESSION: 1. Increased FDG uptake associated with a 1.4 cm right upper lobe nodule which remains concerning for primary bronchogenic carcinoma. Would recommend percutaneous CT-guided biopsy. 2. No other FDG avid lesions suspicious for metastatic disease in the chest, abdomen or pelvis. 3. Fusiform
[2023-11-25 07:57] LABS: Glucose Point of Care 82 mg/dl (65-105)
== END 2023-11-25 07:27 | disposition home or self-care (01) ==
PROVIDERS: PCP Internal Medicine; Visit Provider Internal Medicine Hematology & Oncology
DX: C34.11 Malignant neoplasm of upper lobe, right bronchus or lung (principal); I71.40 Abdominal aortic aneurysm, without rupture, unspecified
CPT/HCPCS: 78815; A9552

== ENCOUNTER 2023-12-17 10:54 | Inpatient (IN) | payer MEDICARE, MEDICAID, SELFPAY ==
[2023-12-17] VITALS (22 sets, daily range): BP systolic 175–220; BP diastolic 98–124; PULSE 30–78; RESP 13–20; TEMP 36.5–36.7; O2SAT 98–100
--- NOTE | ~2023-12-17 | NM_ITS ---
NM lung vent and perfusion INDICATION: Lung mass. TECHNIQUE: The patient inhaled aerosolized 10.4 mCi xenon-133. Following ventilation scan, 5.3 mCi T c 99m MAA was injected intravenously for perfusion images. Multiple images were then acquired. COMPARISON: Chest x-ray dated 12/20/2023 FINDINGS: The comparison chest radiograph demonstrates a mass in the right upper lobe. No focal airsp cris disease. No ventilation/perfusion mismatches are seen. There are matched defects in the lung apic es. There is mild retention of radiotracer on washout images. IMPRESSION: 1: Low probability for pulmonary embolism. Reviewed, dictated and finalized at location B.
--- NOTE | ~2023-12-17 | XR_ITS ---
XR chest 2V 12/20/2023 11:50 Indication: Lung mass Procedure: 2 view chest Comparison: Comparison to multiple prior studies sequentially, with oldest reviewed study dated 02/09. Findings: Irregular shaped mass right upper lobe. Heart size normal. There is atherosclerosis and ect george of the aorta. There is bibasilar atelectasis/scarring. Impression: 1: Irregular shaped mass right upper lobe, concerning for bronchogenic carcinoma. Reviewed, dictated and finalized at location B. Impression: 1: Irregular shaped mass right upper lobe, concerning for bronchogenic carcinom a.
--- NOTE | ~2023-12-17 | US_ITS ---
EXAMINATION: US venous doppler [facility] DATE: 12/18/2023 16:43 INDICATION: +DDimer, lung mass . TECHNIQUE: Grayscale images without and with compression and Doppler images of the bilateral lower ex tremity veins were obtained. COMPARISON: None FINDINGS: The right common femoral vein, profunda (deep) femoral vein, femoral vein, popliteal vein, peroneal v ein, posterior tibial veins, gastrocnemius vein, and greater saphenous vein are patent. The left common femoral vein, profunda (deep) femoral vein, femoral vein, popliteal vein, peroneal v ein, posterior tibial veins, gastrocnemius vein, and greater saphenous vein are patent. IMPRESSION: Patent bilateral lower extremity veins. No evidence of deep venous thrombosis. Reviewed, dictated and finalized at location K.
--- NOTE | ~2023-12-17 | XR_ITS ---
EXAMINATION: XR chest 1V portable DATE: 12/17/2023 11:43 INDICATION: Chest pain. TECHNIQUE: A single frontal view of the chest was obtained. COMPARISON: Chest 2 views 11/04/2023, PET CT 11/25/2023 FINDINGS: There is a nodule in right upper lobe. Calcified bilateral lung nodules and calcified left hilar and mediastinal lymph nodes are consistent with old granulomatous disease. No pleural effusion or pneumothorax. The heart size is normal. IMPRESSION: 1. Right lung upper lobe nodule suspicious for primary bronchogenic carcinoma. CT-guided biopsy is re commended. Reviewed, dictated and finalized at location A. IMPRESSION: 1. Right lung upper lobe nodule suspicious for primary bronchogenic carcinoma. CT-guided biopsy is recommended.
--- NOTE | 2023-12-17 11:01 | ECG_ITS ---
SEE SCANNED COPY FOR CONFIRMED REPORT MTDD
--- NOTE | 2023-12-17 11:35 | ED.CHESTPAIN ---
HPI - Chest Pain General Chief Complaint: Chest Pain Stated Complaint: ELEVATED BP AND CHEST PAIN FROM SURGERY Time Seen by Provider: 12/17/23 11:01 Source: patient and family ( Daughter) History of Present Illness HPI narrative: patient has a history of CVA (x1) w/o residual deficits, TIAs (multiple), HTN, and insulin dependent diabetes mellitus who presents from surgery center. Patient has a lung mass for which he was supposed to undergo biopsy this morning. In the preop area he was found to have elevated blood pressure and thus the procedure was not pursued. he then developed central/sternal chest pain approximately 10:00 a.m.. It was occurring intermittently for approximately 15 minutes but then resolved. Patient states his pain was 2/10 in severity at that time and now 0/10 in severity at that time however his daughter states that he was squinting and grimacing at the time and seemed to be quite uncomfortable. She doesn't remember the exact value but believes his SBP was 171mmHg. He does have a history of hypertension and is on medication for this. Nurse discusses with [facility] personnel who do confirm that he received his morning dose of Xanax, Flomax, metoprolol (dose 12.5mg, not listed in med list below), amlodipine, and he has a lidocaine patch in place. Daughter states she discussed with the facility and they are requesting he be admitted for blood pressure control because they report his blood pressure has been controlled at the facility and thus this is new. Facility physician not available daily for BPB control. patient denies any shortness of breath, cough, or fevers. He denies any headache. Related Data Home Medications Medication Instructions Recorded Confirmed tamsulosin 0.4 mg capsule 0.4 mg PO DAILY 06/18/22 12/17/23 alprazolam 1 mg tablet 1 mg PO Q12H 11/04/23 12/17/23 amlodipine 2.5 mg tablet 2.5 mg PO DAILY 11/04/23 12/17/23 apixaban 5 mg tablet (Eliquis) 2.5 mg PO Q12H 11/04/23 12/17/23 famotidine 20 mg tablet 20 mg PO DAILY 11/04/23 12/17/23 insulin detemir U-100 100 unit/mL 10 unit subcut HS 12/17/23 12/17/23 (3 mL) subcutaneous pen (Levemir FlexPen) Allergies Allergy/AdvReac Type Severity Reaction Status Date / Time No Known Allergies Allergy Verified 12/17/23 14:24 [facility] Past Medical History Medical History (Updated 12/19/23 @ 20:06 by Teresa Toledo MD) Anemia of chronic disease Anxiety Benign prostatic hyperplasia Cerebrovascular accident (10/27/18) Chronic anticoagulation Chronic narcotic use Chronic renal failure, stage 3 (moderate) Dementia Hyperlipidemia Hypertension Insulin dependent diabetes mellitus Paroxysmal atrial fibrillation Subdural hematoma Surgical History Surgical History History of colostomy History of inguinal hernia repair History of left hip hemiarthroplasty Family History Family History Mother Diabetes mellitus Congestive heart failure Father Cerebrovascular accident Daughter Cancer Social History Social History (Updated 12/17/23 @ 22:17 by Erma Mclaughlin PA-C) Social History: Healthcare power of assistant county attorney: Kelly Fernandez, daughter. Code status: Full code. Smoking status: Former smoker Alcohol intake: never Substance use: never Substance use type: does not use Do You Feel Safe in your Home?: Yes Lack of Transportation: No Lack of Food: Never True Current Housing: I Have Housing Concerned About Future Housing: No Difficulty Paying Gas/Electric Bills: No Difficulty Paying for Meds: No Currently Unemployed: No Education: Decline to Answer Difficulty w/ Childcare or Family Care: No Additional living arrangements comments: . Lives at [facility]. Had 3 children. 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 Gender ident
[2023-12-17 11:47] LABS: Basophils Percent Auto 0.3 % (0.2-1.2); Eosinophils Absolute Auto 2.9 K/mm3 (0-0.3); Hematocrit 32.2 % (42.0-52.0); Immature Granulocyte Absolute 0.03 K/mm3 (0.00-0.031); Immature Granulocyte Percent A 0.3 % (0-0.5); Lymphocytes Absolute Auto 1.95 K/mm3 (0.9-3.2); Lymphocytes Percent Auto 21.5 % (18.3-44.2); Mean Corpuscular HGB Conc 31.1 g/dl (32-36); Mean Corpuscular Hemoglobin 26.2 pg (26-34); Mean Corpuscular Volume 84.3 fl (80-100); Mean Platelet Volume 9.7 fl (7.4-10.4); Monocytes Absolute Auto 0.5 K/mm3 (0.1-0.6); Monocytes Percent Auto 5.9 % (2.6-8.5); Neutrophils Absolute Auto 3.6 K/mm3 (1.3-6.7); Platelet Count Result 235 k/mm3 (150-375); Red Blood Count 3.82 M/mm3 (4.6-6.20); Red Cell Distribution Width 15.4 % (11.5-14.5); White Blood Count 9.1 K/mm3 (4.5-10.0)
[2023-12-17] MEDS: ASPIRIN 81 MG CHEWABLE TABLET 324 MG PO (11:50)
[2023-12-17 11:56] LABS: INR 1.2; Prothrombin Time 15.2 Seconds (11.1-14.7)
[2023-12-17 11:57] LABS: Partial Thromboplastin Time 40.9 Seconds (22.3-36.8)
[2023-12-17 11:59] LABS: Alanine Aminotransferase 17 U/L (6-50); Albumin Level 4.6 g/dL (3.5-5.1); Alkaline Phosphatase 76 U/L (38-126); Anion Gap 10 mmol/L (4-12); Aspartate Amino Transferase 26 U/L (17-59); Bilirubin,Total 0.5 mg/dL (0.2-1.3); Blood Urea Nitrogen 35 mg/dL (9-20); Calcium 9.3 mg/dL (8.4-10.2); Carbon Dioxide 26 mmol/L (22-30); Chloride 101 mmol/L (98-107); Estimated CRCL calculation 15 ml/min; Estimated Glomerular Filt Rate 22; Glucose 103 mg/dL (65-110); Potassium 4.1 mmol/L (3.4-5.0); Sodium 137 mmol/L (137-145)
[2023-12-17 12:09] LABS: Troponin I < 0.012 ng/mL (0.000-0.034)
[2023-12-17] MEDS: SODIUM CHLORIDE 0.9% IV 1,000 ML 999 ML IV CONT (13:03)
--- NOTE | 2023-12-17 14:00 | ECG_ITS ---
SEE SCANNED COPY FOR CONFIRMED REPORT MTDD
[2023-12-17 14:44] LABS: Troponin I 0.013 ng/mL (0.000-0.034)
[2023-12-17] MEDS: amLODIPine BESYLATE 2.5 MG TABLET PO (15:33)
[2023-12-17] MEDS: METOPROLOL TARTRATE INJ 5 MG/5 ML VIAL IV PUSH (17:21)
[2023-12-17] MEDS: LABETALOL HCL INJ 100 MG/20 ML VIAL 20 MG IV PUSH ×2 (19:05→20:04)
--- NOTE | 2023-12-17 20:15 | PC.NURSE ---
this rn spoke with KADE Miles at [facility] to give update on patient.
--- NOTE | 2023-12-17 20:34 | PC.NURSE ---
this rn spoke with pt daughter Kelly per pt request to update daughter on room assignment and visiting hours.
--- NOTE | 2023-12-17 20:47 | PM.IMHP ---
H&P: HPI History of Present Illness Date/Time: 12/17/23 19:45 Chief Complaint: Elevated blood pressure. Narrative: This is an 83-year-old male with history of stroke, insulin dependent diabetes mellitus, hypertension, hyperlipidemia, and chronic kidney disease who presented to the emergency department for evaluation of elevated blood pressure. The patient and his daughter provides the following history. He recently was found to have a right lung mass and was scheduled to have a biopsy done today however it was canceled because his blood pressures were in the low 200 systolic and he was complaining of vague mid chest pain. He is unable to further qualify the discomfort that he has been having in his chest but reports that it is ?just pain? in the center. It does not radiate and he gives no aggravating or alleviating factors. Daughter indicates that he does on occasion complain of chest pain and this is not new. He denies headache, vertigo, shortness of breath, pleuritic pain, palpitations, sensations of racing heart, nausea, vomiting, sweats, edema, and calf pain. On arrival to the ED his blood pressure was 220/116. Looking through his EMR, it appears that his blood pressures are not well controlled at baseline and he is only on 2.5 mg of amlodipine and 12.5 mg of metoprolol succinate. It is unclear if he took those this morning and he was given a dose of each not long after arrival. He also received IV labetalol 20 mg x 2 with minimal improvement in his blood pressures. He is being admitted in this setting for closer monitoring and further evaluation. He is not currently having any chest discomfort. Review of Systems Review of Systems: 12 systems were reviewed and are negative except for as per HPI. [facility] Past Medical History Medical History (Updated 12/17/23 @ 22:20 by Erma Mclaughlin PA-C) Anemia of chronic disease Anxiety Benign prostatic hyperplasia Cerebrovascular accident (10/27/18) Chronic anticoagulation Chronic narcotic use Chronic renal failure, stage 3 (moderate) Dementia Hyperlipidemia Hypertension Insulin dependent diabetes mellitus Paroxysmal atrial fibrillation Subdural hematoma Surgical History Surgical History History of colostomy History of inguinal hernia repair History of left hip hemiarthroplasty Family History Family History Mother Diabetes mellitus Congestive heart failure Father Cerebrovascular accident Daughter Cancer Social History Social History (Updated 12/17/23 @ 22:17 by Erma Mclaughlin PA-C) Social History: Healthcare power of trade mark attorney: Kelly Fernandez, daughter. Code status: Full code. Smoking status: Former smoker Alcohol intake: never Substance use: never Substance use type: does not use Do You Feel Safe in your Home?: Yes Lack of Transportation: No Lack of Food: Never True Current Housing: I Have Housing Concerned About Future Housing: No Difficulty Paying Gas/Electric Bills: No Difficulty Paying for Meds: No Currently Unemployed: No Education: Decline to Answer Difficulty w/ Childcare or Family Care: No Additional living arrangements comments: . Lives at [facility]. Had 3 children. 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 Gender identity (if verbalized by the patient): Male Spiritual care concerns: No Meds Home Medications and Allergies Home Medications Medication Instructions Recorded Confirmed Type tamsulosin 0.4 mg capsule 0.4 mg PO DAILY 06/18/22 12/17/23 History metoprolol succinate 25 mg 12.5 mg PO DAILY #30 tabs 11/16/22 12/17/23 Rx tablet,extended release 24 hr alprazolam 1 mg tablet 1 mg PO Q12H 11/04/23 12/17/23 History amlodipine 2.5 mg tablet 2.5 mg PO DAILY 11/04/23 12/17/23 History apixaban 5 mg tablet (Eliquis) 2.5 mg PO Q1
--- NOTE | 2023-12-17 21:02 | ADMGEN ---
This patient, Vitaly Hatfield, was admitted to IMU Room 207-01. Patient/family oriented to hospital policies and general routines including ID bracelet, bed and alarms, visiting hours, pain management, procedures, bathroom and other care routines, personal items, smoking policy, room service/diet, and visiting hours. Information on how to activate the Rapid Response Team has been discussed. Patient/Family are encouraged to report perceived risks to care and to ask questions if they do not understand what they are told or what they should do.
[2023-12-17] MEDS: ALPRAZolam (*CRX) 0.5 MG TABLET 1 MG PO (22:56)
[2023-12-17] MEDS: amLODIPine BESYLATE 5 MG TABLET PO (22:56)
[2023-12-17] MEDS: APIXABAN 2.5 MG TABLET PO (22:56)
[2023-12-17] MEDS: HYDROcodone/acetaminophen (*CRX) 10-325 MG TABLET 1 TAB PO (22:57)
[2023-12-17 23:49] LABS: Troponin I 0.012 ng/mL (0.000-0.034)
[2023-12-18] VITALS (20 sets, daily range): BP systolic 141–181; BP diastolic 74–103; PULSE 63–84; RESP 16–24; TEMP 36–36.6; O2SAT 98–100
[2023-12-18 04:52] LABS: Hemoglobin 9.7 g/dL (14.0-18.0); Mean Corpuscular HGB Conc 31.3 g/dl (32-36); Mean Corpuscular Hemoglobin 26.4 pg (26-34); Mean Corpuscular Volume 84.2 fl (80-100); Platelet Count Result 257 k/mm3 (150-375); Red Blood Count 3.68 M/mm3 (4.6-6.20); Red Cell Distribution Width 15.1 % (11.5-14.5); White Blood Count 8.2 K/mm3 (4.5-10.0)
[2023-12-18 05:03] LABS: Anion Gap 8 mmol/L (4-12); Blood Urea Nitrogen 32 mg/dL (9-20); Calcium 8.9 mg/dL (8.4-10.2); Carbon Dioxide 25 mmol/L (22-30); Chloride 104 mmol/L (98-107); Estimated CRCL calculation 18 ml/min; Estimated Glomerular Filt Rate 24; Glucose 142 mg/dL (65-110); Potassium 4.3 mmol/L (3.4-5.0); Sodium 137 mmol/L (137-145)
[2023-12-18 08:18] LABS: Glucose Point of Care 127 mg/dl (65-105)
[2023-12-18] MEDS: METOPROLOL SUCCINATE EXT REL 12.5 MG TABCR PO (08:38)
[2023-12-18] MEDS: FAMOTIDINE 20 MG TABLET PO (08:38)
[2023-12-18] MEDS: TAMSULOSIN HCL 0.4 MG CAPSULE PO (08:38)
[2023-12-18] MEDS: amLODIPine BESYLATE 5 MG TABLET PO (08:47)
[2023-12-18] MEDS: ALPRAZolam (*CRX) 0.5 MG TABLET 1 MG PO ×2 (10:58→20:38)
[2023-12-18] MEDS: APIXABAN 2.5 MG TABLET PO ×2 (10:58→20:38)
[2023-12-18 11:55] LABS: Glucose Point of Care 133 mg/dl (65-105)
[2023-12-18] MEDS: LABETALOL HCL INJ 100 MG/20 ML VIAL 20 MG IV PUSH (13:11)
[2023-12-18 16:19] LABS: Glucose Point of Care 163 mg/dl (65-105)
--- NOTE | 2023-12-18 17:48 | PM.IMPN ---
Progress Note: A&P Assessment and Plan (1) Hypertensive urgency: Code(s): I16.0 - Hypertensive urgency Status: Acute Assessment and Plan: The patient presented to the emergency department from the surgery Center for evaluation of elevated blood pressures and chest pain. BP was 220/111 on admission. CXR showing RUL nodule but otherwise no acute findings. EKG showing sinus bradycardia (59), LVH and nonspecific T wave changes. Troponin negative x 3. Blood pressures historically have not been very well controlled. He is compliant with his amlodipine 2.5mg daily and metoprolol succinate 12.5mg daily. He was given Norvasc 2.5mg, metoprolol 5mg IV, and Labetalol 20mg IV x2. He was also given Norvasc 5mg once overnight. BP is better controlled. Will advance his Norvasc to control his BP. (2) Chest pain: Code(s): R07.9 - Chest pain, unspecified Status: Acute Assessment and Plan: As above. His chest discomfort may be due to the elevated blood pressures. It does not seem to be pleuritic in nature however pulmonary embolism is considered given underlying lung mass which is suspicious for bronchogenic carcinoma. He is on Eliquis but suspect this has been on hold for the planned lung biopsy. D-dimer ordered and is positive at 1.7. Cr 2.6 so will proceed with VQ scan and LE venous doppler. Eliquis resumed. (3) Chronic kidney disease: Code(s): N18.9 - Chronic kidney disease, unspecified Status: Acute Assessment and Plan: Cr last year running 1.4-2.4. Cr 2.2-2.6 last month. Cr 2.8 on admission. Bladder scan ordered to rule out urine retention as he does have BPH. Cr better today. Still too high for a contrast study. Follow (4) Anemia of chronic disease: Code(s): D63.8 - Anemia in other chronic diseases classified elsewhere Status: Acute Assessment and Plan: Patient with chronic anemia with Hgb mostly in the 10 range. Hgb stable here. Anemia probably related to his CKD but no iron studies, etc. Check Iron , B12 levels. Follow HH (5) Paroxysmal atrial fibrillation: Code(s): I48.0 - Paroxysmal atrial fibrillation Status: Acute Assessment and Plan: EKG showing sinus bradycardia. Tele showing normal sinus. Continue metoprolol Eliquis resumed (6) Insulin dependent diabetes mellitus: Status: Chronic Assessment and Plan: The patient's blood glucose was reviewed on 12/17 Glucose remains well controlled. Continue AccuCheks covering with sliding scale. Hypoglycemia protocol available as needed. Continue to monitor Plan DVT prophylaxis - Eliquis Code status - full Subjective Date/time seen: 12/18/23 17:48 Interval history: 83yo male with hx of CVA, DM, HTN and CKD here for elevated blood pressure and chest pain. Slept well. No CP or SOB. Does not take his BP at home. Exam Narrative: AF 96.8 148/85 64 20 100% ra Gen - NARD Chest - CTA bilaterally, nml RR CV - RRR S1/S2. Tele showing PVCs Abd - Soft, NT/ND, Positive BS Ext - No pedal edema Neuro - Alert and oriented x3 (not month). Nonfocal exam. Psych - Nml mood and affect Skin - Warm and dry Objective Data Vital Signs Vital Signs: Vital Signs - 24 hr 12/17/23 18:24 12/17/23 19:09 12/17/23 19:07 Temperature Pulse Rate 63 68 64 Respiratory Rate 17 18 14 Blood Pressure 195/105 H 202/110 H 202/110 H Pulse Oximetry 99 99 100 Oxygen Delivery 12/17/23 19:35 12/17/23 19:37 12/17/23 20:11 Temperature Pulse Rate 70 68 Respiratory Rate 16 16 Blood Pressure 197/103 H 204/105 H Pulse Oximetry 100 99 100 Oxygen Delivery Room Air 12/17/23 19:39 12/17/23 20:01 12/17/23 21:00 Temperature 98.1 F Pulse Rate 71 66 78 Respiratory Rate 15 16 16 Blood Pressure 191/104 H 193/109 H 189/108 H Pulse Oximetry 100 99 100 Oxygen Delivery 12/18/23 00:00 12/18/23 04:00 12/18/23 00:00 Temperature 97.7
[2023-12-18 20:28] LABS: Glucose Point of Care 221 mg/dl (65-105)
[2023-12-18] MEDS: INSULIN GLARGINE (*BKC) 100 UNITS/ML 10 UNITS SUB-Q (20:39)
[2023-12-18] MEDS: INSULIN ASPART (*BKC) 100 UNITS/ML SUB-Q (20:40)
[2023-12-19] VITALS (19 sets, daily range): BP systolic 130–176; BP diastolic 81–108; PULSE 64–95; RESP 15–18; TEMP 36.3–36.9; O2SAT 97–100
[2023-12-19 04:55] LABS: Basophils Percent Auto 0.6 % (0.2-1.2); Eosinophils Absolute Auto 1.6 K/mm3 (0-0.3); Eosinophils Percent Auto 21.3 % (0-4.4); Hematocrit 32.8 % (42.0-52.0); Hemoglobin 10.2 g/dL (14.0-18.0); Immature Granulocyte Absolute 0.01 K/mm3 (0.00-0.031); Immature Granulocyte Percent A 0.1 % (0-0.5); Lymphocytes Absolute Auto 1.75 K/mm3 (0.9-3.2); Lymphocytes Percent Auto 24.1 % (18.3-44.2); Mean Corpuscular HGB Conc 31.1 g/dl (32-36); Mean Corpuscular Hemoglobin 25.9 pg (26-34); Mean Corpuscular Volume 83.2 fl (80-100); Mean Platelet Volume 9.4 fl (7.4-10.4); Monocytes Absolute Auto 0.5 K/mm3 (0.1-0.6); Monocytes Percent Auto 7.3 % (2.6-8.5); Neutrophils Absolute Auto 3.4 K/mm3 (1.3-6.7); Neutrophils Percent Auto 46.6 % (45.5-73.1); Platelet Count Result 290 k/mm3 (150-375); Red Blood Count 3.94 M/mm3 (4.6-6.20); White Blood Count 7.3 K/mm3 (4.5-10.0)
[2023-12-19 05:08] LABS: Albumin Level 4.2 g/dL (3.5-5.1); Anion Gap 9 mmol/L (4-12); Blood Urea Nitrogen 34 mg/dL (9-20); Calcium 9.4 mg/dL (8.4-10.2); Carbon Dioxide 25 mmol/L (22-30); Chloride 104 mmol/L (98-107); Estimated CRCL calculation 20 ml/min; Estimated Glomerular Filt Rate 27; Glucose 92 mg/dL (65-110); Phosphorus 3.8 mg/dL (2.5-4.5); Potassium 4.5 mmol/L (3.4-5.0); Sodium 138 mmol/L (137-145)
[2023-12-19 05:24] LABS: Iron 60 ug/dL (49-181)
[2023-12-19 05:34] LABS: Percent Iron Saturation 24 % (20-50)
[2023-12-19 06:14] LABS: Folic Acid 3.9 ng/mL (2.76->20)
[2023-12-19 07:30] LABS: Glucose Point of Care 108 mg/dl (65-105)
[2023-12-19] MEDS: LABETALOL HCL INJ 100 MG/20 ML VIAL 20 MG IV PUSH (09:35)
[2023-12-19] MEDS: TAMSULOSIN HCL 0.4 MG CAPSULE PO (09:37)
[2023-12-19] MEDS: ALPRAZolam (*CRX) 0.5 MG TABLET 1 MG PO ×2 (09:37→21:55)
[2023-12-19] MEDS: APIXABAN 2.5 MG TABLET PO ×2 (09:37→21:55)
[2023-12-19] MEDS: amLODIPine BESYLATE 5 MG TABLET PO (09:37)
[2023-12-19] MEDS: FAMOTIDINE 20 MG TABLET PO (09:37)
[2023-12-19] MEDS: METOPROLOL SUCCINATE EXT REL 12.5 MG TABCR PO (09:38)
--- NOTE | 2023-12-19 11:44 | PM.IMPN ---
Progress Note: A&P Assessment and Plan (1) Hypertensive urgency: Code(s): I16.0 - Hypertensive urgency Status: Acute Assessment and Plan: The patient presented to the emergency department from the surgery Center for evaluation of elevated blood pressures and chest pain. BP was 220/111 on admission. CXR showing RUL nodule but otherwise no acute findings. EKG showing sinus bradycardia (59), LVH and nonspecific T wave changes. Troponin negative x 3. Blood pressures historically have not been very well controlled. He is compliant with his amlodipine 2.5mg daily and metoprolol succinate 12.5mg daily. He was given Norvasc 2.5mg, metoprolol 5mg IV, and Labetalol 20mg IV x2 in the ED. We advanced his Norvasc with improvement. Systolic blood pressure now running 130-170 range. Will follow for now. (2) Chest pain: Code(s): R07.9 - Chest pain, unspecified Status: Acute Assessment and Plan: As above. His chest discomfort may be due to the elevated blood pressures. It was not pleuritic in nature however PE is considered given underlying lung mass which is suspicious for bronchogenic carcinoma. He is on Eliquis but suspect this has been on hold for the planned lung biopsy. D-dimer ordered and was positive at 1.7. LE venous doppler negative for DVT Cr 2.6 so will proceed with VQ scan Continue Eliquis (3) Chronic kidney disease: Code(s): N18.9 - Chronic kidney disease, unspecified Status: Acute Assessment and Plan: Cr last year running 1.4-2.4. Cr 2.2-2.6 last month. Cr 2.8 on admission. Bladder scan ordered to rule out urine retention as he does have BPH. Cr better today at 2.3. Still too high for a contrast study. Follow (4) Anemia of chronic disease: Code(s): D63.8 - Anemia in other chronic diseases classified elsewhere Status: Acute Assessment and Plan: Patient with chronic anemia with Hgb mostly in the 10 range. Hgb stable here. Anemia probably related to his CKD but B12 low end of normal Iron studies within normal limits. Replace B12 (5) Paroxysmal atrial fibrillation: Code(s): I48.0 - Paroxysmal atrial fibrillation Status: Acute Assessment and Plan: EKG showing sinus bradycardia. Tele showing normal sinus but with occasional episode of atrial fibrillation. Continue metoprolol Continue Eliquis (6) Insulin dependent diabetes mellitus: Status: Chronic Assessment and Plan: The patient's blood glucose was reviewed on 12/18 Glucose remains well controlled. Continue AccuCheks covering with sliding scale. Hypoglycemia protocol available as needed. Continue to monitor Plan DVT prophylaxis - Eliquis Code status - full Subjective Date/time seen: 12/19/23 11:44 Interval history: 83yo male with hx of CVA, DM, HTN and CKD here for elevated blood pressure and chest pain. Slept well. No chest pain or shortness of breath. He lives with his daughter and her children. He does not feel confused today. Eating well. No nausea or vomiting. Exam Narrative: AF 98.5 130/81 95 18 99% ra Gen - NARD Chest - CTA bilaterally, nml RR CV - RRR S1/S2. Tele showing brief episode of atrial fibrillation with RVR but mostly in normal sinus rhythm. Abd - Soft, NT/ND, Positive BS Ext - No pedal edema Neuro - Alert and oriented x3 (not month). Nonfocal exam. Psych - Nml mood and affect Skin - Warm and dry Objective Data Vital Signs Vital Signs: Vital Signs - 24 hr 12/18/23 12:00 12/18/23 13:10 12/18/23 13:11 Temperature 97.1 F L Pulse Rate 72 63 64 Respiratory Rate 24 H Blood Pressure 181/79 H 176/74 H Pulse Oximetry 100 Oxygen Delivery 12/18/23 13:21 12/18/23 16:00 12/18/23 12:00 Temperature 96.8 F L Pulse Rate 64 71 Respiratory Rate 20 Blood Pressure 150/88 H 148/85 H Pulse Oximetry 100 Oxygen Delivery 12/18/23 14:00 12/18/23 16:00 12/18/23 18
[2023-12-19 11:56] LABS: Glucose Point of Care 189 mg/dl (65-105)
[2023-12-19 16:30] LABS: Glucose Point of Care 154 mg/dl (65-105)
[2023-12-19] MEDS: CYANOCOBALAMIN INJ 1,000 MCG/ML VIAL 1000 MCG IM (18:04)
[2023-12-19] MEDS: CYANOCOBALAMIN 1,000 MCG TABLET 1000 MCG PO (18:05)
[2023-12-19 20:02] LABS: Glucose Point of Care 127 mg/dl (65-105)
[2023-12-19] MEDS: INSULIN GLARGINE (*BKC) 100 UNITS/ML 10 UNITS SUB-Q (21:56)
[2023-12-20] VITALS (13 sets, daily range): BP systolic 152–186; BP diastolic 88–102; PULSE 63–88; RESP 17–19; TEMP 36.3–36.9; O2SAT 97–100
[2023-12-20] MEDS: LABETALOL HCL INJ 100 MG/20 ML VIAL 20 MG IV PUSH (03:29)
[2023-12-20] MEDS: HYDROcodone/acetaminophen (*CRX) 10-325 MG TABLET 1 TAB PO ×2 (03:31→21:28)
[2023-12-20 04:56] LABS: Albumin Level 4.1 g/dL (3.5-5.1); Anion Gap 11 mmol/L (4-12); Blood Urea Nitrogen 40 mg/dL (9-20); Calcium 9.1 mg/dL (8.4-10.2); Carbon Dioxide 23 mmol/L (22-30); Chloride 103 mmol/L (98-107); Estimated CRCL calculation 20 ml/min; Estimated Glomerular Filt Rate 26; Glucose 123 mg/dL (65-110); Phosphorus 3.9 mg/dL (2.5-4.5); Potassium 4.1 mmol/L (3.4-5.0); Sodium 137 mmol/L (137-145)
[2023-12-20 07:39] LABS: Glucose Point of Care 119 mg/dl (65-105)
[2023-12-20] MEDS: FAMOTIDINE 20 MG TABLET PO (09:16)
[2023-12-20] MEDS: METOPROLOL SUCCINATE EXT REL 12.5 MG TABCR PO (09:16)
[2023-12-20] MEDS: APIXABAN 2.5 MG TABLET PO ×2 (09:16→21:20)
[2023-12-20] MEDS: CYANOCOBALAMIN 1,000 MCG TABLET 1000 MCG PO (09:16)
[2023-12-20] MEDS: amLODIPine BESYLATE 5 MG TABLET 10 MG PO (09:16)
[2023-12-20] MEDS: TAMSULOSIN HCL 0.4 MG CAPSULE PO (09:16)
[2023-12-20] MEDS: ALPRAZolam (*CRX) 0.5 MG TABLET 1 MG PO ×2 (09:16→21:20)
[2023-12-20 12:30] LABS: Glucose Point of Care 113 mg/dl (65-105)
--- NOTE | 2023-12-20 14:44 | PC.NURSE ---
This RN notified Dr. Ibarra of the results of the lung perfusion scan.
--- NOTE | 2023-12-20 15:51 | ECG_ITS ---
SEE SCANNED COPY FOR CONFIRMED REPORT. MTDD
--- NOTE | 2023-12-20 15:52 | PC.NURSE ---
This RN was notified by tech the patient was complaining of chest pain. This RN went to assess patient, patient states it is hard to describe and feels like something is sitting on his chest. Notified Dr. Ibarra, orders for stat EKG and Troponin.
--- NOTE | 2023-12-20 16:41 | PM.IMPN ---
Progress Note: A&P Assessment and Plan (1) Hypertensive urgency: Code(s): I16.0 - Hypertensive urgency Status: Acute Assessment and Plan: The patient presented to the emergency department from the [facility] for evaluation of elevated blood pressures and chest pain. BP was 220/111 on admission. CXR showing RUL nodule but otherwise no acute findings. EKG showing sinus bradycardia (59), LVH and nonspecific T wave changes. Troponin negative x 3. Blood pressures historically have not been very well controlled. He is compliant with his amlodipine 2.5mg daily and metoprolol succinate 12.5mg daily. He was given Norvasc 2.5mg, metoprolol 5mg IV, and Labetalol 20mg IV x2 in the ED. We advanced his Norvasc with improvement. Systolic blood pressure still elevated and Norvasc advanced again. Will follow (2) Chest pain: Code(s): R07.9 - Chest pain, unspecified Status: Acute Assessment and Plan: As above. His chest discomfort may be due to the elevated blood pressures. It was not pleuritic in nature however PE is considered given underlying lung mass which is suspicious for bronchogenic carcinoma. He is on Eliquis but suspect this has been on hold recently for the planned lung biopsy. D-dimer was positive at 1.7. LE venous doppler negative for DVT Cr 2.6 so will proceed with VQ scan; VQ scan low probability Continue Eliquis He is having recurent chest pain. Possibly GI. EKG repeated but no change. EKG reviewed personally. Check Trop. Mylanta x 1. Monitor on tele for now (3) Chronic kidney disease: Code(s): N18.9 - Chronic kidney disease, unspecified Status: Acute Assessment and Plan: Cr last year running 1.4-2.4. Cr 2.2-2.6 last month. Cr 2.8 on admission. Bladder scan ordered to rule out urine retention as he does have BPH. Cr stable at 2.4. Follow (4) Anemia of chronic disease: Code(s): D63.8 - Anemia in other chronic diseases classified elsewhere Status: Acute Assessment and Plan: Patient with chronic anemia with Hgb mostly in the 10 range. Hgb stable here. Anemia probably related to his CKD but B12 low end of normal Iron studies within normal limits. Replace B12 (5) Paroxysmal atrial fibrillation: Code(s): I48.0 - Paroxysmal atrial fibrillation Status: Acute Assessment and Plan: EKG showing sinus bradycardia. Tele showing normal sinus Continue metoprolol Continue Eliquis (6) Insulin dependent diabetes mellitus: Status: Chronic Assessment and Plan: The patient's blood glucose was reviewed on 12/19 Glucose remains well controlled. Continue AccuCheks covering with sliding scale. Hypoglycemia protocol available as needed. Continue to monitor Plan DVT prophylaxis - Eliquis Code status - full Subjective Date/time seen: 12/20/23 16:41 Interval history: 83yo male with hx of CVA, DM, HTN and CKD here for elevated blood pressure and chest pain. Had calf pain past night but better after the RN elevated his legs with a pillow. Feels well. Called back to the room later in the day for complaints of burning chest pain. Never had before. No other complaints Exam Narrative: AF 98.3 162/99 67 19 100% ra Gen - NARD Chest - CTA bilaterally, nml RR CV - RRR S1/S2. Tele showing PVCs Abd - Soft, NT/ND, Positive BS Ext - No pedal edema Psych - Nml mood and affect Skin - Warm and dry Objective Data Vital Signs Vital Signs: Vital Signs - 24 hr 12/19/23 18:00 12/19/23 19:52 12/19/23 20:03 Temperature 97.3 F L Pulse Rate 80 74 74 Respiratory Rate 18 18 Blood Pressure 163/95 H Pulse Oximetry 97 97 Oxygen Delivery Room Air 12/19/23 20:00 12/19/23 23:30 12/20/23 00:00 Temperature 97.3 F L Pulse Rate 81 77 78 Respiratory Rate 18 Blood Pressure 155/90 H Pulse Oximetry 98 Oxygen Delivery 12/20/23 03:29 12/20/23 03:32 12/20/23 04:24 Temperat
[2023-12-20 16:42] LABS: Glucose Point of Care 143 mg/dl (65-105)
[2023-12-20] MEDS: MAG HYDROX/AL HYDROX/SIMETH 30 ML UDC PO (16:57)
[2023-12-20] MEDS: ACETAMINOPHEN 325 MG TABLET 650 MG PO (17:00)
[2023-12-20 17:19] LABS: Troponin I < 0.012 ng/mL (0.000-0.034)
[2023-12-20 20:23] LABS: Glucose Point of Care 180 mg/dl (65-105)
[2023-12-20 20:56] LABS: Troponin I < 0.012 ng/mL (0.000-0.034)
[2023-12-20] MEDS: INSULIN GLARGINE (*BKC) 100 UNITS/ML 10 UNITS SUB-Q (21:25)
[2023-12-20 23:45] LABS: Troponin I < 0.012 ng/mL (0.000-0.034)
[2023-12-21] VITALS (12 sets, daily range): BP systolic 137–174; BP diastolic 40–111; PULSE 65–101; RESP 18–20; TEMP 35.9–36.5; O2SAT 95–100
[2023-12-21 04:52] LABS: Anion Gap 11 mmol/L (4-12); Blood Urea Nitrogen 47 mg/dL (9-20); Calcium 9.4 mg/dL (8.4-10.2); Carbon Dioxide 23 mmol/L (22-30); Chloride 105 mmol/L (98-107); Estimated CRCL calculation 17 ml/min; Estimated Glomerular Filt Rate 23; Potassium 3.9 mmol/L (3.4-5.0); Sodium 139 mmol/L (137-145)
[2023-12-21 05:06] LABS: Glucose 52 mg/dL (65-110)
[2023-12-21 05:13] LABS: Glucose Point of Care 52 mg/dl (65-105)
[2023-12-21 06:06] LABS: Glucose Point of Care 76 mg/dl (65-105)
[2023-12-21 06:15] LABS: Glucose Point of Care 135 mg/dl (65-105)
[2023-12-21 08:15] LABS: Glucose Point of Care 145 mg/dl (65-105)
[2023-12-21] MEDS: FAMOTIDINE 20 MG TABLET PO (08:15)
[2023-12-21] MEDS: amLODIPine BESYLATE 5 MG TABLET 10 MG PO (08:15)
[2023-12-21] MEDS: TAMSULOSIN HCL 0.4 MG CAPSULE PO (08:16)
[2023-12-21] MEDS: CYANOCOBALAMIN 1,000 MCG TABLET 1000 MCG PO (08:16)
[2023-12-21] MEDS: METOPROLOL SUCCINATE EXT REL 12.5 MG TABCR PO (08:16)
[2023-12-21] MEDS: LABETALOL HCL INJ 100 MG/20 ML VIAL 20 MG IV PUSH (08:16)
[2023-12-21] MEDS: ALPRAZolam (*CRX) 0.5 MG TABLET 1 MG PO (09:21)
[2023-12-21] MEDS: APIXABAN 2.5 MG TABLET PO (09:21)
--- NOTE | 2023-12-21 09:36 | PC.NURSE ---
Attempted to notify MD of patients blood pressure. Pt's blood pressure was 174/111, this RN gave the patients PRN medication, Lobetalol 20mg IVP. Based on the parameters set the patients BP required the PRN medication. Retake BP was 169/94. Will notify MD.
--- NOTE | 2023-12-21 10:02 | PC.NURSE ---
This RN spoke with the MD concerning the patients BP. MD returned missed phone calls. No further orders.
[2023-12-21 11:58] LABS: Glucose Point of Care 132 mg/dl (65-105)
--- NOTE | 2023-12-21 14:07 | PM.DS ---
DS: Admitting Diagnosis Discharge Date 12/21/23 Admitting Diagnosis Elevated blood pressure and chest pain DS: Discharge Diagnosis Discharge Diagnosis (1) Hypertensive urgency: Code(s): I16.0 - Hypertensive urgency Status: Acute (2) Chest pain: Code(s): R07.9 - Chest pain, unspecified Status: Acute (3) Chronic kidney disease: Code(s): N18.9 - Chronic kidney disease, unspecified Status: Acute (4) Anemia of chronic disease: Code(s): D63.8 - Anemia in other chronic diseases classified elsewhere Status: Acute (5) Paroxysmal atrial fibrillation: Code(s): I48.0 - Paroxysmal atrial fibrillation Status: Acute (6) Insulin dependent diabetes mellitus: Status: Chronic DS: Summary Hospital Course Reason for hospitalization: 83yo male with hx of CVA, DM, HTN and CKD here for elevated blood pressure and chest pain. Please see H&P for details. Hospital Course: The patient presented to the [facility] department [facility] for evaluation of elevated blood pressures and chest pain. BP was 220/111 on admission. CXR showing RUL nodule but otherwise no acute findings. EKG showing sinus bradycardia (59), LVH and nonspecific T wave changes. Troponin negative x 3.? Blood pressures historically has not been very well controlled. He is compliant with his amlodipine 2.5mg daily and metoprolol succinate 12.5mg daily. He was given Norvasc 2.5mg, metoprolol 5mg IV, and Labetalol 20mg IV x2 in the ED. We advanced his Norvasc with improvement. Blood pressure still elevated but not wanting to disrupt renal perfusion by lowering blood pressure too rapidly. His chest discomfort may be due to the elevated blood pressures. It was not pleuritic in nature however PE was considered given underlying lung mass which is suspicious for bronchogenic carcinoma. He is on Eliquis but this had been on hold recently for the planned lung biopsy. D-dimer was positive at 1.7. LE venous doppler negative for DVT. Cr 2.6 so we proceeded with VQ scan; VQ scan low probability. We continued Eliquis here. He was having recurrent chest pain. Repeat EKG showing no change. Repeat Troponin negative. Cr last year running 1.4-2.4. ? Cr 2.2-2.6 last month. Cr 2.8 on admission. Cr remained stable. Patient with chronic anemia with Hgb mostly in the 10 range. Hgb stable here. Anemia probably related to his CKD but B12 low end of normal so B12 replaced. Iron studies within normal limits.?EKG showing sinus bradycardia. Tele showing normal sinus?with occasional brief episodes of probably AFib. We continued metoprolol and Eliquis. The patient's blood glucose was monitored with AccuCheks covering with sliding scale.? Hypoglycemia protocol was available as needed.?Glucose was 52 in the morning so Lantus cut back. Patient is alert and mostly oriented. Spoke with daughter who stated patient has underlying dementia but seems more confused over the past week or so. May be worse here being in a new environment. He overall did well and was able to be discharged on 12/21/23 ? Status at Discharge Cognitive/behavioral status at discharge: stable Time Spent with Patient Time attestation: Total time spent providing and/or coordinating discharge services: 35 minutes Time spent: Greater than 30 minutes Exam Narrative: AF 97.7 152/101 68 18 100% ra Gen - NARD Chest - CTA bilaterally, nml RR CV - RRR S1/S2. Tele showing episode of AFib o/w NSR Abd - Soft, NT/ND, Positive BS Ext - No pedal edema Psych - Nml mood and affect, alert and appropriate Skin - Warm and dry DS: Data Data Completed and Pending Labs on day of discharge: Labs from last 24 hours 12/21/23 12/21/23 12/21/23 11:37 07:52 06:12 Sodium Potassium Chloride Carbon Dioxide Anion Gap BUN Creatinine Estim Creat Clear Calc Estimated GFR Glucose POC Capillary Glucose 132 H 145 H 135 H Calcium Troponin I
[2023-12-21 16:01] LABS: SARS-CoV-2 RNA PCR Negative (Negative)
--- NOTE | 2023-12-21 16:24 | PC.NURSE ---
This RN called report to the patients nursing facility, [facility]. Report given to Mamta.
== END 2023-12-21 17:20 | DRG 305 ==
LOC: ANHED 20:10 → ANHIMU 20:34
PROVIDERS: Physician Assistant; Admitting Provider Hospitalist; Emergency Provider Student in an Organized Health Care Education/Training Program; PCP Internal Medicine; Visit Provider Internal Medicine
DX: I16.0 Hypertensive urgency (principal); N17.9 Acute kidney failure, unspecified; I48.0 Paroxysmal atrial fibrillation; N18.30 Chronic kidney disease, stage 3 unspecified; D63.8 Anemia in other chronic diseases classified elsewhere; E11.22 Type 2 diabetes mellitus with diabetic chronic kidney disease; E78.5 Hyperlipidemia, unspecified; N40.0 Benign prostatic hyperplasia without lower urinary tract symptoms; R07.9 Chest pain, unspecified; R91.1 Solitary pulmonary nodule; F03.90 Unspecified dementia, unspecified severity, without behavioral disturbance, psychotic disturbance, mood disturbance, and anxiety; F41.9 Anxiety disorder, unspecified; Z20.822 Contact with and (suspected) exposure to COVID-19; Z96.642 Presence of left artificial hip joint; Z79.4 Long term (current) use of insulin; Z79.01 Long term (current) use of anticoagulants; Z86.73 Personal history of transient ischemic attack (TIA), and cerebral infarction without residual deficits; Z79.899 Other long term (current) drug therapy
CPT/HCPCS: 36415; 71045; 71046; 78582; 80048; 80053; 80069; 82607; 82728; 82746; 82948; 83540; 83550; 83735; 84484; 85025; 85027; 85380; 85610; 85730; 87635; 93005; 93970; 96361; 96374; 96375; 96376; 99285; A9270; A9540; A9558; G0378; J1815; J3420; J7030

== ENCOUNTER 2024-01-31 09:07 | Outpatient (CLI) | payer MEDICARE, MEDICAID, SELFPAY ==
[2024-01-28 15:06] VITALS: BMI 22.4
--- NOTE | 2024-01-28 15:07 | PC.NURSE ---
Addendum entered by Jess Lockhart RN 01/28/24 15:33: CORRECTION- LAST DOSE OF ELIQUIS IS 01/28/24. Original Note: Pre Radiology instructions Report to the outpatient stevie guillory on date _01/31/24____ at time __9:00AM for procedure Time: _11:00AM___ YOU MAY BE MONITORED AT HOSPITAL FOR UP TO 4 HOURS AFTER YOUR PROCEDURE. A visitor will be allowed to accompany the patient into the hospital. You and your visitor will be asked to self-screen and do not enter if you have any COVID symptoms. A mask is OPTIONAL within the hospital. Patients are to have no food or drink 6 hours prior to procedure time 5:00AM Driving will be restricted after the procedure, you must have a person to drive you home. Labs will be drawn in preop area and once reviewed, you will be taken to radiology area for procedure. When the procedure is completed, you will be taken to outpatient where you will be monitored for several hours. You may have one visitor in this area. Other than holding anti-coagulants, patient may take other medication(s) as scheduled. GIVE CARDIAC MEDS-AMLODIPINE & METOPROLOL. MAY ALSO GIVE HYDROCODONE NEEDED. Prior to your appointment date patients are instructed to hold anti-coagulants after discussing with ordering provider to stop. If unable to discontinue anti-coagulants please notify radiologist. ? No aspirin or warfarin (Coumadin) for 7 days prior to the procedure. ? No clopidogrel (Plavix), ticagrelor (Brilinta), prasugrel (Effient) or dabigatran (Pradaxa) for 5 days prior to the procedure. ? No rivaroxaban (Xarelto), apixaban (Eliquis), dipyridamole (Aggrenox or Persantine) or cilostazol (Pletal) for 2 days prior to the procedure. Medications to discontinue per physician: __ELIQUIS___ Date to take last dose: ____7/7/24, EVENING DOSE Please leave all valuables, including medications, at home the day of procedure. The hospital will not accept responsibility for valuables. Wear comfortable, loose fitting clothing.? Follow any additional instructions given to you from ordering provider. Telephone instructions given to ___NURSE AT [facility] and asked if any additional questions and then verbalized understanding. Patient advised to call scheduling provider office or registration scheduling [phone] if any additional questions.
[2024-01-31] VITALS (12 sets, daily range): BP systolic 143–175; BP diastolic 68–99; PULSE 54–89; RESP 16–18; TEMP 36.1–36.4; O2SAT 98–100
--- NOTE | ~2024-01-31 | XR_ITS ---
Portable chest x-ray Comparison: 01/31/2024 Clinical History: Postbiopsy Findings: Hazy right midlung airspace opacity is again present. There is additional mild haziness ri ght lung base. Left lung clear. No pneumothorax. Cardiomediastinal silhouette is stable. Bones and s oft tissues are unremarkable. Impression: Hazy airspace disease right midlung and right lung base. Correlate with biopsy results. No pneumothorax. Reviewed, dictated and finalized at location M. Impression: Hazy airspace disease right midlung and right lung base. Correlate with biopsy results. No pneumothorax.
--- NOTE | ~2024-01-31 | CT_ITS ---
EXAMINATION: CT biopsy lung w/imaging DATE: 01/31/2024 12:06 INDICATION: Right lung mass TECHNIQUE: The procedure including the risks and benefits was discussed with the patient. Risks discu ssed included infection, approximately 1/20 risk of symptomatic hemorrhage beyond mild hemoptysis, ap proximately 1/3 risk of pneumothorax, and approximately 1/10 risk of pneumothorax severe enough to wa rrant chest tube placement. The patient understood the risks and agreed to proceed. The patient was p laced supine. The skin overlying the lateral right chest was prepped and draped in sterile fashion. Anesthetic was administered with 1% lidocaine subcutaneously. A 19 gauge outer needle was advanced under CT guidance to the lesion of interest. A 20 gauge core biopsy needle was then used to obtain 6 core biopsy specimens. The needle was removed and the entry site was cleaned and dressed. There were no immediate complications. The dose-length product was 200.67 mGy-cm. FINDINGS: CT images demonstrate the outer needle tip adjacent to an approximately 1.7 cm right upper lobe mass. IMPRESSION: 1. Successful CT-guided biopsy of a 1.7 cm right upper lobe mass which is concerning for primary bron chogenic carcinoma. Reviewed, dictated and finalized at location A. IMPRESSION: 1. Successful CT-guided biopsy of a 1.7 cm right upper lobe mass which is alber rning for primary bronchogenic carcinoma.
--- NOTE | ~2024-01-31 | XR_ITS ---
EXAMINATION: XR chest 1V portable Exam Date/Time: 01/31/2024 14:55 CDT HISTORY: Post Image Guided Lung Biopsy Comparison: Same date at 12:58 PM. FINDINGS/IMPRESSION: No pneumothorax. Improving subsegmental right midlung hemorrhage, partially obscuring a known pulmona ry nodule. Improving right basilar atelectasis. Reviewed, dictated and finalized at location K.
--- NOTE | ~2024-01-31 | XR_ITS ---
EXAMINATION: XR chest 1V DATE: 01/31/2024 12:06 INDICATION: Status post right lung biopsy TECHNIQUE: frontal and lateral views of the chest were obtained. COMPARISON: Chest radiograph dated 12/20/2023 FINDINGS: This is rotated slightly towards the right. Ground glass opacity surrounding the previous noted nodul e in the lateral right midlung zone consistent with expected small amount of postbiopsy pulmonary hem orrhage. Unchanged linear discoid atelectasis/scarring at the bilateral lung bases. Skinfold projects along the lateral left hemithorax. No pneumothorax or definitive pleural effusion. Heart size is nor mal. Calcified mediastinal lymph nodes consistent with old granulomatous disease. IMPRESSION: 1. Expected small amount of post biopsy pulmonary hemorrhage surrounding the nodule in the right midl bean zone which is concerning for primary bronchogenic carcinoma. No pneumothorax. Reviewed, dictated and finalized at location A. IMPRESSION: 1. Expected small amount of post biopsy pulmonary hemorrhage surrounding the no dule in the right midlung zone which is concerning for primary bronchogenic car cinoma. No pneumothorax.
[2024-01-31 10:36] LABS: Mean Platelet Volume 9.9 fl (7.4-10.4); Platelet Count Result 226 k/mm3 (150-375)
[2024-01-31 10:46] LABS: INR 1.1; Prothrombin Time 14.6 Seconds (11.1-14.7)
[2024-01-31] MEDS: HYDROcodone/acetaminophen (*CRX) 10-325 MG TABLET 1 TAB PO (12:33)
[2024-01-31 12:40] LABS: Glucose Point of Care 80 mg/dl (65-105)
== END 2024-01-31 16:38 | disposition home or self-care (01) ==
PROVIDERS: Referring Provider Internal Medicine; Visit Provider Radiology Diagnostic Radiology
PROC: BB24ZZZ Computerized Tomography (CT Scan) of Bilateral Lungs (ICD-10-PCS; CPT 32408; principal; 2024-01-31 11:00)
DX: R91.1 Solitary pulmonary nodule (principal)
CPT/HCPCS: 32408; 36415; 71045; 82948; 85049; 85610; 88305; 88342; A9270

== ENCOUNTER 2024-05-17 11:13 | Outpatient (CLI) | payer MEDICARE, MEDICAID, SELFPAY ==
--- NOTE | ~2024-05-17 | CT_ITS ---
CT Scan of the Chest without Contrast: Clinical Indication: Lung cancer Technique: Contiguous sections were acquired throughout the chest without intravenous contrast. Dose reduction technique was used on this scan by utilizing automated exposure control and iterative recon struction technique. The dose-length product (DLP) was 203.95 mGy-cm. COMPARISON: 11/25/2023 Findings: There is no evidence of any significant mediastinal, hilar or axillary lymphadenopathy. Calcified med iastinal lymph nodes are present. Extensive coronary artery calcifications are present. There is no evidence of pleural or pericardial effusion. Right upper lobe pulmonary nodule is decreased in size, now measuring approximate 7 mm in diameter di slodges solid component, with no focal area of cavitation or cystic change present adjacent. Several calcified pulmonary granulomas are noted. Images through the upper abdomen reveal small gallstones and extensive arthroscopic calcification of the aorta, which is dilated to 3.3 cm of the infrarenal aspect. Compression fractures of T11, T12, an d L1 are present. Impression: Interval decrease in size and confluence of previously identified right upper lobe pulmonary nodule. This could reflect interval response to therapy. 3.3 cm infrarenal abdominal aortic aneurysm. Cholelithiasis. Compression fractures of T11, T12, and L1. Reviewed, dictated and finalized at location M. Impression: Interval decrease in size and confluence of previously identified right upper l obe pulmonary nodule. This could reflect interval response to therapy. 3.3 cm infrarenal abdominal aortic aneurysm. Cholelithiasis. Compression fractures of T11, T12, and L1.
== END 2024-05-17 11:14 | disposition home or self-care (01) ==
PROVIDERS: PCP Internal Medicine; Visit Provider Internal Medicine Hematology & Oncology
DX: C34.11 Malignant neoplasm of upper lobe, right bronchus or lung (principal); K80.20 Calculus of gallbladder without cholecystitis without obstruction; I71.43 Infrarenal abdominal aortic aneurysm, without rupture; S32.010D Wedge compression fracture of first lumbar vertebra, subsequent encounter for fracture with routine healing; S22.080D Wedge compression fracture of T11-T12 vertebra, subsequent encounter for fracture with routine healing; X58.XXXD Exposure to other specified factors, subsequent encounter
CPT/HCPCS: 71250

== ENCOUNTER 2024-05-22 13:03 | Outpatient (CLI) | payer MEDICARE, MEDICAID, SELFPAY ==
[2024-05-22 13:24] LABS: Basophils Percent Auto 0.5 % (0.2-1.2); Eosinophils Absolute Auto 0.5 K/mm3 (0-0.3); Eosinophils Percent Auto 6.6 % (0-4.4); Hematocrit 35.5 % (42.0-52.0); Hemoglobin 11.6 g/dL (14.0-18.0); Immature Granulocyte Absolute 0.02 K/mm3 (0.00-0.031); Immature Granulocyte Percent A 0.3 % (0-0.5); Lymphocytes Absolute Auto 1.03 K/mm3 (0.9-3.2); Lymphocytes Percent Auto 13.6 % (18.3-44.2); Mean Corpuscular HGB Conc 32.7 g/dl (32-36); Mean Corpuscular Hemoglobin 27.8 pg (26-34); Mean Corpuscular Volume 84.9 fl (80-100); Mean Platelet Volume 9.5 fl (7.4-10.4); Monocytes Absolute Auto 0.5 K/mm3 (0.1-0.6); Neutrophils Absolute Auto 5.5 K/mm3 (1.3-6.7); Platelet Count Result 289 k/mm3 (150-375); Red Blood Count 4.18 M/mm3 (4.6-6.20); Red Cell Distribution Width 15.8 % (11.5-14.5); White Blood Count 7.6 K/mm3 (4.5-10.0)
[2024-05-22 13:28] LABS: Blood Urea Nitrogen 31 mg/dL (8-26); Carbon Dioxide 21 mmol/L (22-30); Chloride 106 mmol/L (98-109); Estimated Glomerular Filt Rate 22; Glucose 189 mg/dL (70-105); Ionized Calcium (POC) 1.06 mmol/L (1.11-1.31); Potassium 3.6 mmol/L (3.5-4.9); Sodium 140 mmol/L (138-146)
[2024-05-22 16:35] LABS: Alanine Aminotransferase 12 U/L (6-50); Albumin Level 4.5 g/dL (3.5-5.1); Alkaline Phosphatase 76 U/L (38-126); Anion Gap 14 mmol/L (4-12); Aspartate Amino Transferase 19 U/L (17-59); Bilirubin,Total 0.4 mg/dL (0.2-1.3); Blood Urea Nitrogen 33 mg/dL (9-20); Calcium 8.7 mg/dL (8.4-10.2); Carbon Dioxide 20 mmol/L (22-30); Chloride 104 mmol/L (98-107); Estimated Glomerular Filt Rate 24; Glucose 187 mg/dL (65-110); Potassium 3.7 mmol/L (3.4-5.0); Sodium 138 mmol/L (137-145)
== END 2024-05-22 13:04 | disposition home or self-care (01) ==
LOC: ANHLAB 13:07
PROVIDERS: PCP Internal Medicine; Visit Provider Internal Medicine Hematology & Oncology
DX: C34.11 Malignant neoplasm of upper lobe, right bronchus or lung (principal)
CPT/HCPCS: 36415; 80047; 80053; 85025

== ENCOUNTER 2024-06-06 15:47 | Outpatient (CLI) | payer MEDICARE, MEDICAID, SELFPAY ==
--- NOTE | ~2024-06-06 | MR_ITS ---
EXAMINATION: MR lumbar spine wo/w con DATE: 06/06/2024 16:51 INDICATION: Lumbar compression fracture. TECHNIQUE: Magnetic resonance imaging (MRI) of the lumbar spine was performed without and with 15 mL MultiHance intravenous contrast. COMPARISON: Chest CT 05/17/2024, 11/04/2023 FINDINGS: There is 16 degrees dextroscoliosis of thoracic lumbar spine. There is 4 mm anterolisthesis of L4 on L5. There is a chronic compression fracture of T11 with 2/5 loss of height. There are burst fractures of T12 and L1 with 2/5 and 3/5 loss of height, respectively. Intervertebral disc heights a re normal. The distal spinal cord signal intensity is normal. The conus medullaris is at L1. The foll owing disc levels are specifically discussed: L1-L2: The disc is bulging. There is moderate bilateral facet joint osteoarthritis. There is mild lef t neural foraminal stenosis. There is mild central canal stenosis. L2-L3: The disc is bulging. There is moderate right and mild left facet joint osteoarthritis. There i s moderate bilateral neural foraminal stenosis. There is mild central canal stenosis. L3-L4: There is a left foraminal protrusion. There is moderate right and severe left facet joint oste oarthritis. There is mild bilateral neural foraminal stenosis. There is no central canal stenosis. L4-L5: The disc does not extend beyond the endplate margin. There is severe bilateral facet joint ost eoarthritis. There is mild bilateral neural foraminal stenosis. There is mild central canal stenosis. L5-S1: The disc is bulging and has an annular fissure. There is severe bilateral facet joint osteoart hritis. There is mild bilateral neural foraminal stenosis. There is mild central canal stenosis. IMPRESSION: 1. Moderate bilateral neural foraminal stenosis at L2-L3. Otherwise mild lumbar spondylosis. 2. Chronic fractures of T11-L1 vertebral bodies, stable from 11/04/2023. Reviewed, dictated and finalized at location A.
== END 2024-06-06 15:48 | disposition home or self-care (01) ==
PROVIDERS: PCP Internal Medicine Hematology & Oncology; Visit Provider Internal Medicine Hematology & Oncology
DX: S32.010D Wedge compression fracture of first lumbar vertebra, subsequent encounter for fracture with routine healing (principal); X58.XXXD Exposure to other specified factors, subsequent encounter
CPT/HCPCS: 72158; A9577

== ENCOUNTER 2024-06-21 12:26 | Inpatient (IN) | payer MEDICARE, MEDICAID, SELFPAY ==
[2024-06-21] VITALS (9 sets, daily range): BP systolic 114–134; BP diastolic 66–87; PULSE 67–102; RESP 14–20; TEMP 36.6; O2SAT 92–98; BMI 20.5
--- NOTE | ~2024-06-21 | XR_ITS ---
EXAMINATION: XR chest 1V DATE: 06/21/2024 13:01 INDICATION: Weakness post fall TECHNIQUE: frontal view of the chest was obtained. COMPARISON: Chest radiograph dated 01/31/[address] dated 05/17/2024 FINDINGS: There are interstitial and mild patchy airspace opacities at the bilateral mid and lower lung zones. No pleural effusion or pneumothorax. Heart size is normal. No significant change in mildly aneurysmal aortic arch. Chronic T11 and T12 compression fractures and chronic L1 burst fracture, the latter wit h change of interval vertebroplasty. IMPRESSION: 1. Mild interstitial and airspace opacities in the bilateral mid and lower lung zones which could rep resent mild pulmonary edema or pneumonia. Reviewed, dictated and finalized at location A. IMPRESSION: 1. Mild interstitial and airspace opacities in the bilateral mid and lower lung zones which could represent mild pulmonary edema or pneumonia.
--- NOTE | ~2024-06-21 | CT_ITS ---
CT brain wo con Ordering provider: Kellie Bourne III, DO History: 83 years Male with . fall, hit head, on blood thinners . Comparison: November 12, 2022 [place] Technique: CT of the head without contrast. Radiation reduction technique utilized.The dose-length product was 756.67 mGy-cm. FINDINGS: BRAIN PARENCHYMA AND CSF SPACES: Mild leukoaraiosis and diffuse cortical atrophy. Mild atheromatous d isease. No midline shift, mass effect or hemorrhage. The brain parenchyma and CSF spaces are otherwi se normal. VISUALIZED PARANASAL SINUSES: Bilateral ethmoid sinus disease. MASTOIDS: Well aerated. BONES: The bones appear intact. SOFT TISSUES: Visualized nasopharynx is normal. Superficial soft tissues are normal. IMPRESSION: No acute intracranial findings. Reviewed, dictated and finalized at location A.
--- NOTE | ~2024-06-21 | CT_ITS ---
EXAMINATION: CT cervical spine wo con DATE: 06/21/2024 12:52 INDICATION: Head injury. TECHNIQUE: Computed tomography (CT) of the cervical spine was performed without intravenous contrast. Automated exposure control and iterative reconstruction technique were employed. The dose-length pro duct was 347.73 mGy-cm. COMPARISON: CT cervical spine 11/07/2022 FINDINGS: There is hypolordosis of cervical spine. Vertebral body heights are normal. There is modera tely decreased disc height at C3-C4 and mildly decreased disc height at C4-C5. The following disc lev els are specifically discussed: C2-C3: There is no uncovertebral joint osteoarthritis. There is mild right and moderate left facet adam int osteoarthritis. There is no neural foraminal stenosis. There is no central canal stenosis. C3-C4: There is severe bilateral uncovertebral joint osteoarthritis. There is moderate bilateral face t joint osteoarthritis. There is mild bilateral neural foraminal stenosis. There is mild central martha l stenosis. C4-C5: There is mild right and moderate left uncovertebral joint osteoarthritis. There is moderate ri ght and severe left facet joint osteoarthritis. There is mild left neural foraminal stenosis. There i s mild central canal stenosis. C5-C6: There is no uncovertebral joint osteoarthritis. There is mild bilateral facet joint osteoarthr itis. There is no neural foraminal stenosis. There is no central canal stenosis. C6-C7: There is no uncovertebral joint osteoarthritis. There is mild right and moderate left facet adam int osteoarthritis. There is mild left neural foraminal stenosis. There is no central canal stenosis. C7-T1: There is no uncovertebral joint osteoarthritis. There is severe bilateral facet joint osteoart hritis. There is mild bilateral neural foraminal stenosis. There is no central canal stenosis. IMPRESSION: 1. No fracture. 2. Moderate cervical spondylosis. Reviewed, dictated and finalized at location B.
--- NOTE | ~2024-06-21 | XR_ITS ---
EXAMINATION: XR hip RT 2V w AP pelvis DATE: 06/21/2024 13:01 INDICATION: Right hip pain. Fall. TECHNIQUE: An anteroposterior view of the pelvis and 2 views of right hip were obtained. COMPARISON: Pelvis and left hip radiographs 02/06/21 FINDINGS: There is a subcapital fracture of right femoral neck. The distal fracture fragment demonstr ates impaction and 20 degrees valgus angulation. There is a bipolar left hip hemiarthroplasty in near -anatomic alignment. No periprosthetic lucency to suggest loosening or infection. There is mild right hip osteoarthritis. IMPRESSION: 1. Subcapital fracture of right femoral neck. 2. Mild right hip osteoarthritis. 3. Bipolar left hip arthroplasty in near-anatomic alignment. Reviewed, dictated and finalized at location B.
--- NOTE | ~2024-06-21 | XR_ITS ---
EXAMINATION: XR surgery orthopedic DATE: 06/22/2024 14:02 INDICATION: Right hip pinning TECHNIQUE: 2 fluoroscopic images of the right hip were obtained during procedure performed by . Radiologist was not present for the imaging or procedure. The amount of fluoroscopy time used during this procedure was 2.5 minutes. COMPARISON: 06/21/2024 FINDINGS: Interval screw fixation of the previously seen subcapital fracture of the proximal right femur which is fixed with 3 cannulated lag screws. Alignment is unchanged with superolateral and posterior impact ion resulting in mild posterior and valgus angulation. No new fractures identified. Mild osteoarthrit is at the right hip. IMPRESSION: 1. Fluoroscopy utilized during lag screw fixation of an impacted subcapital fracture of the proximal femur in unchanged alignment. See procedure note for further detail. Reviewed, dictated and finalized at location A. IMPRESSION: 1. Fluoroscopy utilized during lag screw fixation of an impacted subcapital fra cture of the proximal femur in unchanged alignment. See procedure note for furt her detail.
--- NOTE | 2024-06-21 13:13 | ED_ITS ---
HPI - General Adult General Chief complaint: Fall Stated complaint: fall Time Seen by Provider: 06/21/24 13:09 History of Present Illness HPI narrative: 83-year-old male presents to the emergency department for Related Data Home Medications Medication Instructions Recorded Confirmed tamsulosin 0.4 mg capsule 0.4 mg PO DAILY 06/18/22 06/21/24 famotidine 20 mg tablet 20 mg PO DAILY 11/04/23 06/21/24 acetaminophen 325 mg capsule 650 mg PO BID PRN Pain 01/28/24 06/21/24 apixaban 2.5 mg tablet (Eliquis) 5 mg PO BID 01/28/24 06/21/24 hydrocodone 10 mg-acetaminophen 1 tablet PO TID pain 01/28/24 06/21/24 325 mg tablet ibuprofen 600 mg tablet 600 mg PO TID PRN Pain 01/28/24 06/21/24 metoprolol succinate 25 mg 25 mg PO QAM 01/28/24 06/21/24 tablet,extended release 24 hr alprazolam 2 mg tablet 2 mg PO DAILY PRN Anxiety 03/10/24 06/21/24 fluoxetine 40 mg capsule 40 mg PO DAILY 06/21/24 06/21/24 Allergies Allergy/AdvReac Type Severity Reaction Status Date / Time No Known Allergies Allergy Verified 06/21/24 12:35 [facility] Past Medical History Medical History Anemia of chronic disease Anxiety Benign prostatic hyperplasia Cerebrovascular accident (10/27/18) Chronic anticoagulation Chronic narcotic use Chronic renal failure, stage 3 (moderate) Dementia Hyperlipidemia Hypertension Insulin dependent diabetes mellitus Paroxysmal atrial fibrillation Subdural hematoma Surgical History Surgical History History of colostomy History of inguinal hernia repair History of left hip hemiarthroplasty Family History Family History Mother Diabetes mellitus Congestive heart failure Father Cerebrovascular accident Daughter Cancer Social History Social History Social History: Healthcare power of health care attorney: Kelly Gilbertum, daughter. Code status: Full code. Smoking packs per day: 0.5 Smoking cigarettes per day: 10.0 Years smoked: 20 Smoking pack-years: 10.00 Smoking status: Former smoker Tobacco type: cigarettes Alcohol intake: never Substance use: never Substance use type: does not use Do You Feel Safe in your Home?: Yes Lack of Transportation: No Lack of Food: Never True Current Housing: I Have Housing Concerned About Future Housing: No Difficulty Paying Gas/Electric Bills: No Difficulty Paying for Meds: No Currently Unemployed: No Education: Decline to Answer Difficulty w/ Childcare or Family Care: No Additional living arrangements comments: . Lives at [facility]. Had 3 children. 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 Gender identity (if verbalized by the patient): Male Spiritual care concerns: No Course Vital Signs Vital signs: Vital Signs Temperature 97.9 F 06/21/24 12:26 Pulse Rate 102 H 06/21/24 12:26 Respiratory Rate 14 06/21/24 12:26 Blood Pressure 134/87 06/21/24 12:26 Pulse Oximetry 92 06/21/24 12:26 Oxygen Delivery Room Air 06/21/24 12:26 Temperature 97.9 F 06/21/24 12:26 Pulse Rate 89 06/21/24 15:45 Respiratory Rate 20 06/21/24 15:45 Blood Pressure 114/71 06/21/24 15:45 Pulse Oximetry 95 06/21/24 15:45 Oxygen Delivery Room Air 06/21/24 12:26 Medical Decision Making MDM Narrative Medical decision making narrative: 83-year-old male presents emergency department for evaluation for right hip pain after ground level fall. X-ray does show a subcapital hip fracture. Case was discussed with Orthopedics and they was the patient as consult and anticipate doing a pinning of the fracture. I did update patient and family on the results of the workup and plan for admission. Patient's head CT and cervical spine CT were negative Differential Diagnosis Differential Diagnosis: Hip fracture, cervical spine fracture, subdural hematoma, subarachnoid hemorrhage, pelvic fracture Vital Signs Vital Signs: Vital Signs Temperature 97.9 F 06/21/24 12:26 Pulse Rate 102 H 06/21/24 12:26 Respiratory Rate 14 06/21/24 12:26 Blood Pressure 134/87 06/21/24 12:26 Pulse Oximetry 92 06/21/24 12:26 Oxygen Delivery Room Air 06/21/24 12:26 Temperature 97.9 F 06/21/24 12:26 Pulse Rate 89 06/21/24 15:45 Respiratory Rate 20 06/21/24 15:45 Blood Pressure 114/71 06/21/24 15:45 Pulse Oximetry 95 06/21/24 15:45 Oxygen Delivery Room Air 06/21/24 12:26 Lab Data Lab results reviewed: Yes I reviewed the patient's lab results. 06/21/24 13:38 06/21/24 13:38 Labs: Lab Results 06/21/24 Range/Units 13:38 WBC 10.7 H (4.5-10.0) K/mm3 RBC 3.74 L (4.6-6.20) M/mm3 Hgb 10.6 L (14.0-18.0) g/dL Hct 32.2 L (42.0-52.0) % MCV 86.1 (80-100) fl MCH 28.3 (26-34) pg MCHC 32.9 (32-36) g/dl RDW 14.9 H (11.5-14.5) % Plt Count 191 (150-375) k/mm3 MPV 9.5 (7.4-10.4) fl Immature Gran % (Auto) 0.4 (0-0.5) % Neut % (Auto) 81.9 H (45.5-73.1) % Lymph % (Auto) 9.8 L (18.3-44.2) % [place] % (Auto) 5.4 (2.6-8.5) % Eos % (Auto) 2.2 (0-4.4) % Baso % (Auto) 0.3 (0.2-1.2) % Lymph # (Auto) 1.05 (0.9-3.2) K/mm3 [place] # (Auto) 0.6 (0.1-0.6) K/mm3 Eos # (Auto) 0.2 (0-0.3) K/mm3 Baso # (Auto) 0.0 (0.0-0.1) K/mm3 Abs Immat Gran (auto) 0.04 H (0.00-0.031) K/mm3 Absolute Neuts (auto) 8.8 H (1.3-6.7) K/mm3 Absolute Nucleated RBC 0.000 (0.0-0.012) K/mm3 Nucleated RBC % 0.0 (0.0-0.2) % PT 16.4 H (11.1-14.7) Seconds INR 1.3 APTT 38.4 H (22.3-36.8) Seconds Sodium 132 L (137-145) mmol/L Potassium 4.1 (3.4-5.0) mmol/L Chloride 100 (98-107) mmol/L Carbon Dioxide 23 (22-30) mmol/L Anion Gap 9 (4-12) mmol/L BUN 35 H (9-20) mg/dL Creatinine 2.80 H (0.7-1.3) mg/dL Estim Creat Clear Calc 18 ml/min Estimated GFR 22 L (59 - ) Glucose 134 H (65-110) mg/dL Calcium 8.3 L (8.4-10.2) mg/dL Total Bilirubin 0.7 (0.2-1.3) mg/dL AST 26 (17-59) U/L ALT 11 (6-50) U/L Alkaline Phosphatase 75 (38-126) U/L Total Protein 7.0 (6.3-8.2) g/dL Albumin 3.7 (3.5-5.1) g/dL Imaging Data Radiologist's impression: Impressions Head CT 06/21/24 12:56 IMPRESSION: No acute intracranial findings. Cervical Spine CT 06/21/24 12:57 IMPRESSION: 1. No fracture. 2. Moderate cervical spondylosis. Chest X-Ray 06/21/24 13:02 IMPRESSION: 1. Mild interstitial and airspace opacities in the bilateral mid and lower lung zones which could represent mild pulmonary edema or pneumonia. Hip/Pelvis X-Ray 06/21/24 13:03 IMPRESSION: 1. Subcapital fracture of right femoral neck. 2. Mild right hip osteoarthritis. 3. Bipolar left hip arthroplasty in near-anatomic alignment. ECG Data EKG #1: EKG Interpretation: normal rate, atrial fibrillation, non-specific ST changes, normal QT and left axis Discharge Plan Discharge Clinical Impression: Closed hip fracture Patient Disposition: Still a Patient Condition: Stable
--- NOTE | 2024-06-21 13:15 | ECG_ITS ---
Test Date: 2024-06-21 13:49:34 Measurements Intervals [place] Rate: 96 P: 0 CO: 0 QRS: -35 QRSD: 97 T: 13 QT: 372 QTc: 470 Interpretive Statements ATRIAL FIBRILLATION WITH ABERRANT CONDUCTION OR VENTRICULAR PREMATURE COMPLEXES LEFT AXIS DEVIATION [QRS AXIS < -30] MODERATE VOLTAGE CRITERIA FOR LVH, CONSIDER NORMAL VARIANT [MEETS CRITERIA IN ONE OF: R(aVL), S(V1), R(V5), R(V5/V6)+S(V1)] No previous ECG available for comparison Electronically Signed On 06-21-2024 14:51:03 CDT by Basilio Rahman M.D.
[2024-06-21 13:45] LABS: Basophils Percent Auto 0.3 % (0.2-1.2); Eosinophils Absolute Auto 0.2 K/mm3 (0-0.3); Eosinophils Percent Auto 2.2 % (0-4.4); Hematocrit 32.2 % (42.0-52.0); Hemoglobin 10.6 g/dL (14.0-18.0); Immature Granulocyte Absolute 0.04 K/mm3 (0.00-0.031); Immature Granulocyte Percent A 0.4 % (0-0.5); Lymphocytes Absolute Auto 1.05 K/mm3 (0.9-3.2); Lymphocytes Percent Auto 9.8 % (18.3-44.2); Mean Corpuscular HGB Conc 32.9 g/dl (32-36); Mean Corpuscular Hemoglobin 28.3 pg (26-34); Mean Corpuscular Volume 86.1 fl (80-100); Mean Platelet Volume 9.5 fl (7.4-10.4); Monocytes Absolute Auto 0.6 K/mm3 (0.1-0.6); Monocytes Percent Auto 5.4 % (2.6-8.5); Neutrophils Absolute Auto 8.8 K/mm3 (1.3-6.7); Neutrophils Percent Auto 81.9 % (45.5-73.1); Platelet Count Result 191 k/mm3 (150-375); Red Blood Count 3.74 M/mm3 (4.6-6.20); Red Cell Distribution Width 14.9 % (11.5-14.5); White Blood Count 10.7 K/mm3 (4.5-10.0)
[2024-06-21 13:54] LABS: Alanine Aminotransferase 11 U/L (6-50); Albumin Level 3.7 g/dL (3.5-5.1); Alkaline Phosphatase 75 U/L (38-126); Anion Gap 9 mmol/L (4-12); Aspartate Amino Transferase 26 U/L (17-59); Bilirubin,Total 0.7 mg/dL (0.2-1.3); Blood Urea Nitrogen 35 mg/dL (9-20); Calcium 8.3 mg/dL (8.4-10.2); Carbon Dioxide 23 mmol/L (22-30); Chloride 100 mmol/L (98-107); Estimated CRCL calculation 18 ml/min; Estimated Glomerular Filt Rate 22; Glucose 134 mg/dL (65-110); Potassium 4.1 mmol/L (3.4-5.0); Sodium 132 mmol/L (137-145)
[2024-06-21 13:58] LABS: INR 1.3; Prothrombin Time 16.4 Seconds (11.1-14.7)
[2024-06-21 13:59] LABS: Partial Thromboplastin Time 38.4 Seconds (22.3-36.8)
[2024-06-21] MEDS: MORPHINE SULFATE (*CRX) 2 MG/ML INJ IV PUSH ×2 (14:11→18:18)
--- NOTE | 2024-06-21 14:25 | PM.IMHP ---
H&P: HPI History of Present Illness Date/Time: 06/21/24 14:25 Chief Complaint: Fall Narrative: 83 y/o M presents here with fall with PMH of anemia of chronic disease, anxiety, BPH, CVA (2019), on chronic anticoagulation, CKD stage 3, dementia, HLD, HTN, DM, paroxysmal atrial fibrillation, lung cancer s/p radiation, and history of subdural hematoma. The patient presents here from home for further evaluation after a ground level fall that occurred at 12:30 a.m. last night. Patient was getting up to use the restroom when he lost his balance and fell onto his right hip. Did have a head strike without loss of consciousness. Post fall the patient is reporting right hip pain. Daughter did active and passive range of motion with both lower extremities. Patient reported more pain in the right with ROM. Patient then went back to sleep and woke again this morning. He was trying to use a urinal and had moved his legs over the side of the bed when he slipped from the bed onto his bottom. Patient did not have increased pain to the right hip and was again able to do passive/active ROM. However, when he woke this morning the right hip pain continued to be severe which prompted he and his daughter to go the ER. The patient is on Eliquis. He currently lives at home with his daughter. Endorses mild cough a few days ago, has since resolved. Denies fever, shortness of breath, weakness, chills, or bilateral lower extremity swelling. Initial VS at presentation: 97.9? F, HR 102, RR 14, 134/87, and 92-95% on RA. ED workup showed: WBC 10.7, hemoglobin 10.6 (previously 11.6 on 05/22/2024), INR 1.3, sodium 132, creatinine 2.8 (previously 2.8 on 05/22/2024), glucose 134, calcium 8.3. Head CT showed no acute intracranial findings. C-spine CT showed no fracture and moderate cervical spondylosis. CXR showed mild interstitial and airspace opacities in bilateral mid and lower lung zones which could represent mild pulmonary edema or pneumonia. Hip/pelvis XR showed subcapital fracture of the right femoral neck, mild right hip osteoarthritis, bipolar left hip arthroplasty in near anatomic alignment. Review of Systems Review of Systems: All systems reviewed & are unremarkable except as noted in HPI and below [facility] Past Medical History Medical History Anemia of chronic disease Anxiety Benign prostatic hyperplasia Cerebrovascular accident (10/27/18) Chronic anticoagulation Chronic narcotic use Chronic renal failure, stage 3 (moderate) Dementia Hyperlipidemia Hypertension Insulin dependent diabetes mellitus Paroxysmal atrial fibrillation Subdural hematoma Surgical History Surgical History History of colostomy History of inguinal hernia repair History of left hip hemiarthroplasty Family History Family History Mother Diabetes mellitus Congestive heart failure Father Cerebrovascular accident Daughter Cancer Social History Social History Social History: Healthcare power of immigration attorney: Kelly Fernandez, daughter. Code status: Full code. Smoking packs per day: 0.5 Smoking cigarettes per day: 10.0 Years smoked: 20 Smoking pack-years: 10.00 Smoking status: Former smoker Tobacco type: cigarettes Alcohol intake: never Substance use: never Substance use type: does not use Do You Feel Safe in your Home?: Yes Lack of Transportation: No Lack of Food: Never True Current Housing: I Have Housing Concerned About Future Housing: No Difficulty Paying Gas/Electric Bills: No Difficulty Paying for Meds: No Currently Unemployed: No Education: Decline to Answer Difficulty w/ Childcare or Family Care: No Additional living arrangements comments: . Lives at [facility]. Had 3 children. 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 Gender identity (if verbalized by the patient): Male Spiritual care concerns: No Meds Home Medications and Allergies Home Medications Medication Instructions Recorded Confirmed Type tamsulosin 0.4 mg capsule 0.4 mg PO DAILY 06/18/22 06/21/24 History famotidine 20 mg tablet 20 mg PO DAILY 11/04/23 06/21/24 History insulin detemir U-100 100 unit/mL 5 unit (0.05 mL) subcut HS #15 mL 12/21/23 06/21/24 Rx (3 mL) subcutaneous pen (Levemir FlexPen) acetaminophen 325 mg capsule 650 mg PO BID PRN Pain 01/28/24 06/21/24 History apixaban 2.5 mg tablet (Eliquis) 5 mg PO BID 01/28/24 06/21/24 History hydrocodone 10 mg-acetaminophen 1 tablet PO TID pain 01/28/24 06/21/24 History 325 mg tablet ibuprofen 600 mg tablet 600 mg PO TID PRN Pain 01/28/24 06/21/24 History metoprolol succinate 25 mg 25 mg PO QAM 01/28/24 06/21/24 History tablet,extended release 24 hr alprazolam 2 mg tablet 2 mg PO DAILY PRN Anxiety 03/10/24 06/21/24 History fluoxetine 40 mg capsule 40 mg PO DAILY 06/21/24 06/21/24 History Allergies Allergy/AdvReac Type Severity Reaction Status Date / Time No Known Allergies Allergy Verified 06/21/24 12:35 Vital Signs Vital Signs - 24 hr 06/21/24 12:26 06/21/24 13:01 06/21/24 13:30 Temperature 97.9 F Pulse Rate 102 H 100 67 Respiratory Rate 14 18 20 Blood Pressure 134/87 120/80 131/76 Pulse Oximetry 92 93 93 Oxygen Delivery Room Air 06/21/24 14:01 Temperature Pulse Rate 90 Respiratory Rate 16 Blood Pressure 118/77 Pulse Oximetry 95 Oxygen Delivery Exam Const: General: no acute distress and uncomfortable Other: , male, nontoxic appearance HENMT: Face/Nose/Sinus: Normal nares present Mouth: Yes moist mucous membranes Eyes: General: appearance normal, both eyes and all related structures Sclera: sclerae normal Pupils: Equal, round and reactive pupils present EOM: EOMs intact bilaterally Resp: Effort & Inspection: normal respiratory effort Other: Bibasilar crackles. Cardio: Rate: regular rate Rhythm: abnormal rhythm (AFib on monitor) GI: Other: Abdomen soft, nondistended, nontender. Normoactive bowel sounds in all quadrants. Ostomy present, stoma pink and moist and ostomy bag CDI. Skin: General skin exam: normal color and no rashes or lesions noted Wounds: no wounds Neuro: Speech: normal speech Sensory Exam: normal sensation Other: Decreased strength in the right lower extremity secondary to pain. Extrem: Other: Tenderness over the right hip Psych: Mental Status: mental status grossly normal Affect: normal affect Other: Good insight and judgment, pleasant H&P: Results Labs Labs: Short CBC 06/21/24 Range/Units 13:38 WBC 10.7 H (4.5-10.0) K/mm3 Hgb 10.6 L (14.0-18.0) g/dL Hct 32.2 L (42.0-52.0) % Plt Count 191 (150-375) k/mm3 BMP 06/21/24 13:38 Sodium 132 L Potassium 4.1 Chloride 100 Carbon Dioxide 23 BUN 35 H Creatinine 2.80 H Glucose 134 H Calcium 8.3 L Liver Function 06/21/24 Range/Units 13:38 Total Bilirubin 0.7 (0.2-1.3) mg/dL AST 26 (17-59) U/L ALT 11 (6-50) U/L Alkaline Phosphatase 75 (38-126) U/L Albumin 3.7 (3.5-5.1) g/dL Assessment and Plan Assessment and plan (1) Subcapital fracture of right femur: Qualifiers: Encounter type: initial encounter Fracture type: closed Qualified Code(s): S72.011A - Unspecified intracapsular fracture of right femur, initial encounter for closed fracture Code(s): S72.011A - Unspecified intracapsular fracture of right femur, initial encounter for closed fracture Status: Acute Assessment and Plan: - fall precautions - trauma workup significant for a subcapital fracture of the right femoral neck. Head CT, C-spine CT, and CXR unremarkable for traumatic findings. - orthopedics consulted, awaiting recs - analgesics p.r.n. - care coordination consulted for discharge planning - NPO - PT/OT eval and treat post surgical management - hold Eliquis, resume when appropriate (2) Pneumonia: Qualifiers: Laterality: bilateral Lung location: unspecified part of lung Pneumonia type: due to unspecified organism Qualified Code(s): J18.9 - Pneumonia, unspecified organism Code(s): J18.9 - Pneumonia, unspecified organism Status: Acute Assessment and Plan: - CXR: mild interstitial and airspace opacities in the bilateral mid and lower lung zones which could represent mild pulmonary edema or pneumonia. - BNP elevated. daughter suspects he recently had an echo at [facility] which was unremarkable prior to his recent back surgery, requesting. - risk factors: recent surgery and hospitalization - started on CAP tx: ceftriaxone and azithromycin on 06/21 - MRSA and Viral PCR - no current supplemental O2 need (3) Insulin dependent diabetes mellitus: Status: Chronic Assessment and Plan: - hypoglycemia protocol - POC blood glucose ACHS - home medication: Levemir 5 units HS - correct regimen ordered - low dose TIDWM, based off BMI - A1C 6.8% in October of 2022, update (4) Chronic kidney disease: Qualifiers: Chronic kidney disease stage: stage 3 (moderate) Chronic kidney disease stage 3 subtype: unspecified whether 3a or 3b Qualified Code(s): N18.30 - Chronic kidney disease, stage 3 unspecified Code(s): N18.9 - Chronic kidney disease, unspecified Status: Acute Assessment and Plan: - creatinine 2.8 and GFR 22, previously 2.8 and GFR 22 on 05/22/2024 - hx of CKD stage 3 - trend renal function - trend electrolytes, correct as needed (5) Hypertension: Qualifiers: Hypertension type: unspecified Qualified Code(s): I10 - Essential (primary) hypertension Code(s): I10 - Essential (primary) hypertension Status: Acute Assessment and Plan: - chronic, currently 118/77 - home medications: Metoprolol ER 25 mg daily - monitor Plan Diet: NPO GI Prophylaxis: Not currently indicated DVT Prophylaxis: SCDs Lines: Peripheral Code Status: Full code Quality VTE Prophylaxis VTE prophylaxis: mechanical ordered Hospitalist [facility] Advance Care Plan I have confirmed that the patient's Advanced Care Plan is present, code status is documented, or surrogate decision maker is listed in patient medical record.: Yes Medication Reconciliation I have utilized all available resources to obtain, update and review the patients current medications (includes all prescriptions, OTC, herbals, cannabis, and nutritional supplements).: Yes
--- NOTE | 2024-06-21 16:00 | PCPTNOTE ---
Pt to have ortho surgery. Will wait for therapy until ortho recommendations are present. Will follow.
[2024-06-21 16:21] LABS: Lactic Acid Reflex 0.9 mmol/L (0.7-2.0)
[2024-06-21 16:30] LABS: NT Pro B Type Natriuretic Pept 11400 pg/mL (19.9-100)
[2024-06-21 16:50] LABS: Influenza A QL RT-PCR Negative (Negative); Influenza B QL RT-PCR Negative (Negative); RSV RNA, RT-PCR Negative (Negative); SARS-CoV-2 RNA PCR Negative (Negative)
--- NOTE | 2024-06-21 16:50 | ADMGEN ---
This patient, Vitaly Hatfield, was admitted to 2 Medical Room 260-. Patient/family oriented to hospital policies and general routines including ID bracelet, bed and alarms, visiting hours, pain management, procedures, bathroom and other care routines, personal items, smoking policy, room service/diet, and visiting hours. Information on how to activate the Rapid Response Team has been discussed. Patient/Family are encouraged to report perceived risks to care and to ask questions if they do not understand what they are told or what they should do.
[2024-06-21] MEDS: AZITHROMYCIN 500 MG/NS 250 ML 500 MG/250 ML BAG 250 MG IVPB (16:51)
[2024-06-21] MEDS: SODIUM CHLORIDE 0.9% IV 1,000 ML 125 ML IV CONT (16:51)
[2024-06-21 17:15] LABS: Glucose Point of Care 126 mg/dl (65-105)
[2024-06-21 17:25] LABS: MRSA (PCR) NOT DETECTED (NOT DETECTE)
--- NOTE | 2024-06-21 19:57 | PDONCCN ---
[facility] - Date of Consult Date/Time: 06/21/24 19:57 Requesting Physician: Reginald Hernández MD Primary Care Provider: Malik Mathew MD - Consult Narrative Reason for consult: Chronic anemia Narrative: Vitaly Hatfield is a 83 year old male with history of she has a chronic kidney stage 3 disease, dementia, hypertension, hyperlipidemia, atrial fibrillation on chronic, lung cancer status post radiation came into the hospital with generalized weakness status post fall. He denies any bleeding including melena hematochezia. His labs showed creatinine of 2.8 with hemoglobin of 10.6. He has lost 50 lb weight in over the last 1 year duration. He new complaints. Review of Systems - Review of Systems All systems reviewed & are unremarkable except as noted in [facility] and [facility] Medical History: Medical History (Last Reviewed 06/21/24 @ 14:31 by Valarie Hairston APRN) Anemia of chronic disease Anxiety Benign prostatic hyperplasia Cerebrovascular accident Onset Date: 10/27/18 Chronic anticoagulation Chronic narcotic use Chronic renal failure, stage 3 (moderate) Dementia Hyperlipidemia Hypertension Insulin dependent diabetes mellitus Paroxysmal atrial fibrillation Subdural hematoma Surgical History: Surgical History (Last Reviewed 06/21/24 @ 14:31 by Valarie Hairston APRN) History of colostomy History of inguinal hernia repair History of left hip hemiarthroplasty Family History: Family History (Last Reviewed 06/21/24 @ 14:31 by Valarie Hairston APRN) Mother Diabetes mellitus Congestive heart failure Father Cerebrovascular accident Daughter Cancer - Social History Social History: Social History (Last Reviewed 06/21/24 @ 14:31 by Valarie Hairston APRN) Gender Identity: Gender identity (if verbalized by the patient): Male Alcohol Use: Alcohol intake: never Substance Use: Substance use: never Substance use type: does not use Others: Spiritual care concerns: No Oppucation/Education: Occupation/Education: retired Smoking Status: Smoking status: Former smoker Tobacco type: cigarettes Smoking Pack-years: Smoking packs per day: 0.5 Smoking cigarettes per day: 10.0 Years smoked: 20 Smoking pack-years: 10.00 Social Determinants of Health: Do You Feel Safe in your Home?: Yes Has the Lack of Transportation Kept You From Medical Appointments or From Getting Medications?: No Within the Past 12 Months, Were You Worried Whether Your Food Would Run Out Before You Got Money to Buy More?: Never True What is Your Housing Situation Today?: I Have Housing Are You Worried That in the Next 2 Months, You May Not Have Your Own Housing to Live In?: No Do You Have Trouble Paying Your Heating Or Electricity Bill?: No Do You Have Trouble Paying For Medicines?: No Are You Currently Unemployed and Looking for Work?: No Highest Level of Education Completed: Decline to Answer Do You Have Trouble With Childcare or the Care of a Family Member?: No Exam - Vital Signs Vital Signs - 24 hr 06/21/24 12:26 06/21/24 13:01 06/21/24 13:30 Temperature 36.6 C Pulse Rate 102 H 100 67 Respiratory Rate 14 18 20 Blood Pressure 134/87 120/80 131/76 Pulse Oximetry 92 93 93 Oxygen Delivery Room Air 06/21/24 14:01 06/21/24 14:32 06/21/24 15:00 Temperature Pulse Rate 90 96 80 Respiratory Rate 16 20 17 Blood Pressure 118/77 117/77 124/75 Pulse Oximetry 95 93 96 Oxygen Delivery 06/21/24 15:45 Temperature Pulse Rate 89 Respiratory Rate 20 Blood Pressure 114/71 Pulse Oximetry 95 Oxygen Delivery - Exam HEENT: EOMI, PERRLA, mucous membranes moist and pink Neck: supple Lungs: clear to auscultation, normal air movement Heart: no murmurs, gallops, or rubs, regular rhythm, regular rate Abdomen: abdomen soft, non-distended, normal bowel sounds Extremities: normal pulses Integumentary: no abnormalities Neurological: normal speech Psychological: mental status NL, mood NL - Lab Results Laboratory Last Values WBC 10.7 K/mm3 (4.5-10.0) H 06/21/24 13:38 RBC 3.74 M/mm3 (4.6-6.20) L 06/21/24 13:38 Hgb 10.6 g/dL (14.0-18.0) L 06/21/24 13:38 Hct 32.2 % (42.0-52.0) L 06/21/24 13:38 MCV 86.1 fl (80-100) 06/21/24 13:38 MCH 28.3 pg (26-34) 06/21/24 13:38 MCHC 32.9 g/dl (32-36) 06/21/24 13:38 RDW 14.9 % (11.5-14.5) H 06/21/24 13:38 Plt Count 191 k/mm3 (150-375) 06/21/24 13:38 MPV 9.5 fl (7.4-10.4) 06/21/24 13:38 Immature Gran % (Auto) 0.4 % (0-0.5) 06/21/24 13:38 Neut % (Auto) 81.9 % (45.5-73.1) H 06/21/24 13:38 Lymph % (Auto) 9.8 % (18.3-44.2) L 06/21/24 13:38 Ector % (Auto) 5.4 % (2.6-8.5) 06/21/24 13:38 Eos % (Auto) 2.2 % (0-4.4) 06/21/24 13:38 Baso % (Auto) 0.3 % (0.2-1.2) 06/21/24 13:38 Lymph # (Auto) 1.05 K/mm3 (0.9-3.2) 06/21/24 13:38 Ector # (Auto) 0.6 K/mm3 (0.1-0.6) 06/21/24 13:38 Eos # (Auto) 0.2 K/mm3 (0-0.3) 06/21/24 13:38 Baso # (Auto) 0.0 K/mm3 (0.0-0.1) 06/21/24 13:38 Abs Immat Gran (auto) 0.04 K/mm3 (0.00-0.031) H 06/21/24 13:38 Absolute Neuts (auto) 8.8 K/mm3 (1.3-6.7) H 06/21/24 13:38 Absolute Nucleated RBC 0.000 K/mm3 (0.0-0.012) 06/21/24 13:38 Nucleated RBC % 0.0 % (0.0-0.2) 06/21/24 13:38 PT 16.4 Seconds (11.1-14.7) H 06/21/24 13:38 INR 1.3 06/21/24 13:38 APTT 38.4 Seconds (22.3-36.8) H 06/21/24 13:38 Sodium 132 mmol/L (137-145) L 06/21/24 13:38 Potassium 4.1 mmol/L (3.4-5.0) 06/21/24 13:38 Chloride 100 mmol/L (98-107) 06/21/24 13:38 Carbon Dioxide 23 mmol/L (22-30) 06/21/24 13:38 Anion Gap 9 mmol/L (4-12) 06/21/24 13:38 BUN 35 mg/dL (9-20) H 06/21/24 13:38 Creatinine 2.80 mg/dL (0.7-1.3) H 06/21/24 13:38 Estim Creat Clear Calc 18 ml/min 06/21/24 13:38 Estimated GFR 22 (59-) L 06/21/24 13:38 Glucose 134 mg/dL (65-110) H 06/21/24 13:38 POC Capillary Glucose 126 mg/dl (65-105) H 06/21/24 17:09 Lactic Acid 0.9 mmol/L (0.7-2.0) 06/21/24 15:58 Calcium 8.3 mg/dL (8.4-10.2) L 06/21/24 13:38 Total Bilirubin 0.7 mg/dL (0.2-1.3) 06/21/24 13:38 AST 26 U/L (17-59) 06/21/24 13:38 ALT 11 U/L (6-50) 06/21/24 13:38 Alkaline Phosphatase 75 U/L (38-126) 06/21/24 13:38 NT-Pro-B Natriuret Pep 36886 pg/mL (19.9-100) H 06/21/24 15:58 Total Protein 7.0 g/dL (6.3-8.2) 06/21/24 13:38 Albumin 3.7 g/dL (3.5-5.1) 06/21/24 13:38 Nasal MRSA (PCR) Not detected (NOT DETECTE) 06/21/24 15:57 Influenza A (RT-PCR) Negative (Negative) 06/21/24 15:57 Influenza B (RT-PCR) Negative (Negative) 06/21/24 15:57 RSV (RT-PCR) Negative (Negative) 06/21/24 15:57 SARS-CoV-2 RNA (RT-PCR) Negative (Negative) 06/21/24 15:57 Meds Home Medications Medication Instructions Recorded Confirmed Type tamsulosin 0.4 mg capsule 0.4 mg PO DAILY 06/18/22 06/21/24 History famotidine 20 mg tablet 20 mg PO DAILY 11/04/23 06/21/24 History insulin detemir U-100 100 unit/mL 5 unit (0.05 mL) subcut HS #15 mL 12/21/23 06/21/24 Rx (3 mL) subcutaneous pen (Levemir FlexPen) acetaminophen 325 mg capsule 650 mg PO BID PRN Pain 01/28/24 06/21/24 History apixaban 2.5 mg tablet (Eliquis) 5 mg PO BID 01/28/24 06/21/24 History hydrocodone 10 mg-acetaminophen 1 tablet PO TID pain 01/28/24 06/21/24 History 325 mg tablet ibuprofen 600 mg tablet 600 mg PO TID PRN Pain 01/28/24 06/21/24 History metoprolol succinate 25 mg 25 mg PO QAM 01/28/24 06/21/24 History tablet,extended release 24 hr alprazolam 2 mg tablet 2 mg PO DAILY PRN Anxiety 03/10/24 06/21/24 History fluoxetine 40 mg capsule 40 mg PO DAILY 06/21/24 06/21/24 History Allergies Allergy/AdvReac Type Severity Reaction Status Date / Time No Known Allergies Allergy Verified 06/21/24 12:35 Results - Labs CBC & Chem 7: 06/21/24 13:38 06/21/24 13:38 Labs: Short CBC 06/21/24 Range/Units 13:38 WBC 10.7 H (4.5-10.0) K/mm3 Hgb 10.6 L (14.0-18.0) g/dL Hct 32.2 L (42.0-52.0) % Plt Count 191 (150-375) k/mm3 BMP 06/21/24 13:38 Sodium 132 L Potassium 4.1 Chloride 100 Carbon Dioxide 23 BUN 35 H Creatinine 2.80 H Glucose 134 H Calcium 8.3 L Liver Function 06/21/24 Range/Units 13:38 Total Bilirubin 0.7 (0.2-1.3) mg/dL AST 26 (17-59) U/L ALT 11 (6-50) U/L Alkaline Phosphatase 75 (38-126) U/L Albumin 3.7 (3.5-5.1) g/dL Assessment and Plan - Additional Plan Anemia. Patient is a 83-year-old male with multiple comorbid chronic kidney disease, history of lung cancer status post resection, dementia, hypertension and hyperlipidemia came into the hospital status post fall. He has been complaining of tiredness and fatigue. He has lost 50 lb weight in last couple of years duration. His labs showed anemia with hemoglobin of 10.6. He denies any bleeding including melena hematochezia. Other labs showed renal insufficiency with kidney function of only 22%. His anemia is likely secondary to chronic kidney disease. I will check iron studies and vitamin B12 level I will start Procrit injection if his hemoglobin drops below 10. I have provided him my office information for follow-up. I have answered all the questions to patient's satisfaction.
[2024-06-21 20:25] LABS: Iron 18 ug/dL (49-181)
[2024-06-21 20:34] LABS: Percent Iron Saturation 6 % (20-50)
[2024-06-21] MEDS: INSULIN GLARGINE (*BKC) 100 UNITS/ML SUB-Q (20:36)
[2024-06-21 20:58] LABS: Glucose Point of Care 137 mg/dl (65-105)
[2024-06-21 21:34] LABS: Folic Acid 8.9 ng/mL (2.76->20)
[2024-06-22] VITALS (12 sets, daily range): BP systolic 101–153; BP diastolic 56–101; PULSE 77–98; RESP 14–19; TEMP 35.9–36.6; O2SAT 83–100
[2024-06-22] MEDS: MORPHINE SULFATE (*CRX) 2 MG/ML INJ IV PUSH ×2 (00:38→08:15)
[2024-06-22] MEDS: SODIUM CHLORIDE 0.9% IV 1,000 ML 125 ML IV CONT ×2 (02:12→15:16)
[2024-06-22 06:20] LABS: Basophils Percent Auto 0.2 % (0.2-1.2); Eosinophils Absolute Auto 0.1 K/mm3 (0-0.3); Hemoglobin 9.2 g/dL (14.0-18.0); Immature Granulocyte Absolute 0.06 K/mm3 (0.00-0.031); Immature Granulocyte Percent A 0.6 % (0-0.5); Lymphocytes Absolute Auto 0.84 K/mm3 (0.9-3.2); Lymphocytes Percent Auto 8.9 % (18.3-44.2); Mean Corpuscular HGB Conc 32.9 g/dl (32-36); Mean Corpuscular Volume 85.4 fl (80-100); Mean Platelet Volume 9.3 fl (7.4-10.4); Monocytes Absolute Auto 0.4 K/mm3 (0.1-0.6); Monocytes Percent Auto 4.3 % (2.6-8.5); Platelet Count Result 162 k/mm3 (150-375); Red Blood Count 3.28 M/mm3 (4.6-6.20); Red Cell Distribution Width 15.1 % (11.5-14.5); White Blood Count 9.4 K/mm3 (4.5-10.0)
[2024-06-22 06:34] LABS: Anion Gap 11 mmol/L (4-12); Blood Urea Nitrogen 37 mg/dL (9-20); Calcium 7.9 mg/dL (8.4-10.2); Carbon Dioxide 18 mmol/L (22-30); Chloride 103 mmol/L (98-107); Estimated CRCL calculation 16 ml/min; Estimated Glomerular Filt Rate 20; Glucose 166 mg/dL (65-110); Potassium 4.4 mmol/L (3.4-5.0); Sodium 132 mmol/L (137-145)
[2024-06-22 06:50] LABS: Hemoglobin A1C 6.8 % (<5.7)
--- NOTE | 2024-06-22 07:23 | PM.IMPN ---
Progress Note: A&P Assessment and Plan (1) Subcapital fracture of right femur: Qualifiers: Encounter type: initial encounter Fracture type: closed Qualified Code(s): S72.011A - Unspecified intracapsular fracture of right femur, initial encounter for closed fracture Code(s): S72.011A - Unspecified intracapsular fracture of right femur, initial encounter for closed fracture Status: Acute Assessment and Plan: - fall precautions - trauma workup significant for a subcapital fracture of the right femoral neck. Head CT, C-spine CT, and CXR unremarkable for traumatic findings. - orthopedics consulted, awaiting recs - analgesics p.r.n. - care coordination consulted for discharge planning - NPO - PT/OT eval and treat post surgical management. Bed rest until surgical intervention. - hold Eliquis, resume when appropriate (2) Pneumonia: Qualifiers: Laterality: bilateral Lung location: unspecified part of lung Pneumonia type: due to unspecified organism Qualified Code(s): J18.9 - Pneumonia, unspecified organism Code(s): J18.9 - Pneumonia, unspecified organism Status: Acute Assessment and Plan: - CXR: mild interstitial and airspace opacities in the bilateral mid and lower lung zones which could represent mild pulmonary edema or pneumonia. - BNP elevated. daughter suspects he recently had an echo at [facility] which was unremarkable prior to his recent back surgery, requesting. - risk factors: recent surgery and hospitalization - started on CAP tx: ceftriaxone and azithromycin on 06/21 - MRSA and Viral PCR - no current supplemental O2 need -added procalcitonin, 2.1. Ordered U/A as well (3) Insulin dependent diabetes mellitus: Status: Chronic Assessment and Plan: - hypoglycemia protocol - POC blood glucose ACHS - home medication: Levemir 5 units HS - correct regimen ordered - low dose TIDWM, based off BMI - A1C 6.8% in October of 2022, update (4) Chronic kidney disease: Qualifiers: Chronic kidney disease stage: stage 3 (moderate) Chronic kidney disease stage 3 subtype: unspecified whether 3a or 3b Qualified Code(s): N18.30 - Chronic kidney disease, stage 3 unspecified Code(s): N18.9 - Chronic kidney disease, unspecified Status: Acute Assessment and Plan: - creatinine 2.8 and GFR 22, previously 2.8 and GFR 22 on 05/22/2024 - hx of CKD stage 3 - trend renal function - trend electrolytes, correct as needed - NS at 125 ml per hour while NPO - Cr 3.00 today (5) Hypertension: Qualifiers: Hypertension type: unspecified Qualified Code(s): I10 - Essential (primary) hypertension Code(s): I10 - Essential (primary) hypertension Status: Acute Assessment and Plan: - chronic, currently 118/77 - home medications: Metoprolol ER 25 mg daily - monitor Plan Diet: NPO GI Prophylaxis: Not currently indicated DVT Prophylaxis: SCDs Lines: Peripheral Code Status: Full code Subjective Date/time seen: 06/22/24 07:23 Interval history: Mr. Hatfield is a very pleasant gentleman is seen resting in bed in no acute distress. He recounts his fall at and attributes it to standing up too quickly causing him to become dizzy. He denies any chest pain or heart palpitations associated with his fall. At rest he is having pain to his right hip. Besides this fall he has been in his usual state of health. He denies headache, chest pain, shortness a breath, productive cough, fever, chills, abdominal pain, nausea, or vomiting. Review of Systems Review of Systems: All systems reviewed & are unremarkable except as noted in HPI and below Exam Narrative: General: appears comfortable, in no acute distress, elderly, frail Respiratory: breathing is unlabored with even chest rise/fall, lungs are clear and diminished without wheezing, rhonchi, and crackles Cardiovascular: Rate and rhythm regular, normal s1s2, no murmur Abdomen: Soft, round, non-tender, active bowel sounds Extremities: No cyanosis, edema, clubbing. Pulses 2/2 Neuro: A&O x 4 Skin: Warm, dry, intact Objective Data Vital Signs Vital Signs: Vital Signs - 24 hr 06/21/24 12:26 06/21/24 13:01 06/21/24 13:30 Temperature 97.9 F Pulse Rate 102 H 100 67 Respiratory Rate 14 18 20 Blood Pressure 134/87 120/80 131/76 Pulse Oximetry 92 93 93 Oxygen Delivery Room Air 06/21/24 14:01 06/21/24 14:32 06/21/24 15:00 Temperature Pulse Rate 90 96 80 Respiratory Rate 16 20 17 Blood Pressure 118/77 117/77 124/75 Pulse Oximetry 95 93 96 Oxygen Delivery 06/21/24 15:45 06/21/24 20:40 06/21/24 20:29 Temperature 97.9 F Pulse Rate 89 89 84 Respiratory Rate 20 20 16 Blood Pressure 114/71 114/66 Pulse Oximetry 95 95 98 Oxygen Delivery Room Air Intake/Output Intake/Output: Intake & Output 06/19/24 06/20/24 06/21/24 06/22/24 23:59 23:59 23:59 23:59 Intake Total 50 1000 Output Total 200 Balance -150 1000 Meds/Results Medications: Active Medications Generic Name Dose Route Start Last Admin Trade Name Freq PRN Reason Stop Dose Admin Acetaminophen 650 mg 06/21/24 14:36 Acetaminophen 325 Mg Tablet PO Q6H PRN Mild Pain (1-3) or Fever Hydrocodone Bitart/Acetaminophen 1 tab 06/21/24 14:36 Hydrocodone/Acetaminophen (*Crx) 5-325 Mg Tablet PO Q6H PRN Pain Rated 4-6 Alprazolam 2 mg 06/21/24 18:35 Alprazolam (*Crx) 0.5 Mg Tablet PO DAILY PRN Anxiety Dextrose 12.5 gm 06/21/24 14:38 Dextrose 50% 25 Gm/50 Ml Syringe IV PUSH PRN PRN Hypoglycemia Protocol Docusate Sodium 100 mg 06/21/24 14:37 Docusate Sodium 100 Mg Capsule PO Q12H PRN Constipation Famotidine 20 mg 06/22/24 09:00 Famotidine 20 Mg Tablet PO DAILY [facility] Fluoxetine HCl 40 mg 06/22/24 09:00 Fluoxetine Hcl 20 Mg Capsule PO DAILY [facility] Glucagon 1 mg 06/21/24 14:38 Glucagon For Inj 1 Mg Vial IM PRN PRN Hypoglycemia Protocol Glucose 15 gm 06/21/24 14:38 Glucose Oral Gel 15 Gm Of Glucse In 37.5 Gm Tube PO PRN PRN Hypoglycemia Protocol Sodium Chloride 1,000 mls @ 125 mls/hr 06/21/24 14:10 06/22/24 02:12 Normal Saline Iv IV CONT 125 mls/hr .Q8H ROBY Administration Dextrose 1,000 mls @ 100 mls/hr 06/21/24 14:38 Dextrose 5% 1,000 Ml IVPB PRN PRN Hypoglycemia Protocol Ceftriaxone Sodium 1 gm in 50 mls @ 100 mls/hr 06/21/24 15:00 10/30/24 16:25 Rocephin 1 Gm/Ns 50 Ml IVPB Infused Q24H [facility] Infusion Azithromycin 500 mg in 250 mls @ 250 mls/hr 06/21/24 16:00 06/21/24 16:51 Zithromax IVPB 250 mls/hr Q24H [facility] Administration Insulin Aspart 2 - 5 units 06/21/24 17:00 06/21/24 18:19 Insulin Aspart (*Bkc) 100 Units/Ml SUB-Q Not Given TIDWM [facility] Protocol Insulin Glargine 5 units 06/21/24 21:00 06/21/24 20:36 Insulin Glargine (*Bkc) 100 Units/Ml SUB-Q 5 units HS [facility] Administration Metoprolol Succinate 25 mg 06/22/24 09:00 Metoprolol Succinate Ext Rel 25 Mg Tabcr PO QAM [facility] Morphine Sulfate 2 mg 06/21/24 14:10 06/22/24 00:38 Morphine Sulfate (*Crx) 2 Mg/Ml Inj IV PUSH 2 mg Q2H PRN Administration Pain Rated 7-10 Ondansetron HCl 4 mg 06/21/24 14:37 Ondansetron Inj 4 Mg/2 Ml Vial IV PUSH Q6H PRN Nausea And Vomiting Tamsulosin HCl 0.4 mg 06/22/24 09:00 Tamsulosin Hcl 0.4 Mg Capsule PO DAILY [facility] Radiology Results: ITS Impressions Head CT 06/21/24 12:56 IMPRESSION: No acute intracranial findings. Cervical Spine CT 06/21/24 12:57 IMPRESSION: 1. No fracture. 2. Moderate cervical spondylosis. Chest X-Ray 06/21/24 13:02 IMPRESSION: 1. Mild interstitial and airspace opacities in the bilateral mid and lower lung zones which could represent mild pulmonary edema or pneumonia. Hip/Pelvis X-Ray 06/21/24 13:03 IMPRESSION: 1. Subcapital fracture of right femoral neck. 2. Mild right hip osteoarthritis. 3. Bipolar left hip arthroplasty in near-anatomic alignment. Labs Labs: Laboratory Results - last 24 hr 06/21/24 06/21/24 06/21/24 13:38 15:57 15:58 WBC 10.7 H RBC 3.74 L Hgb 10.6 L Hct 32.2 L MCV 86.1 MCH 28.3 MCHC 32.9 RDW 14.9 H Plt Count 191 MPV 9.5 Immature Gran % (Auto) 0.4 Neut % (Auto) 81.9 H Lymph % (Auto) 9.8 L Archer % (Auto) 5.4 Eos % (Auto) 2.2 Baso % (Auto) 0.3 Lymph # (Auto) 1.05 Archer # (Auto) 0.6 Eos # (Auto) 0.2 Baso # (Auto) 0.0 Abs Immat Gran (auto) 0.04 H Absolute Neuts (auto) 8.8 H Absolute Nucleated RBC 0.000 Nucleated RBC % 0.0 PT 16.4 H INR 1.3 APTT 38.4 H Sodium 132 L Potassium 4.1 Chloride 100 Carbon Dioxide 23 Anion Gap 9 BUN 35 H Creatinine 2.80 H Estim Creat Clear Calc 18 Estimated GFR 22 L Glucose 134 H POC Capillary Glucose Hemoglobin A1c Lactic Acid 0.9 Calcium 8.3 L Iron 18 L TIBC 277 % Saturation 6 L Ferritin 97.70 Total Bilirubin 0.7 AST 26 ALT 11 Alkaline Phosphatase 75 NT-Pro-B Natriuret Pep 48823 H Total Protein 7.0 Albumin 3.7 Vitamin B12 337.0 Folate 8.9 Nasal MRSA (PCR) Not detected Influenza A (RT-PCR) Negative Influenza B (RT-PCR) Negative RSV (RT-PCR) Negative SARS-CoV-2 RNA (RT-PCR) Negative 06/21/24 06/21/24 06/22/24 17:09 20:24 06:00 WBC 9.4 RBC 3.28 L Hgb 9.2 L Hct 28.0 L MCV 85.4 MCH 28.0 MCHC 32.9 RDW 15.1 H Plt Count 162 MPV 9.3 Immature Gran % (Auto) 0.6 H Neut % (Auto) 85.0 H Lymph % (Auto) 8.9 L Archer % (Auto) 4.3 Eos % (Auto) 1.0 Baso % (Auto) 0.2 Lymph # (Auto) 0.84 L Archer # (Auto) 0.4 Eos # (Auto) 0.1 Baso # (Auto) 0.0 Abs Immat Gran (auto) 0.06 H Absolute Neuts (auto) 8.0 H Absolute Nucleated RBC 0.000 Nucleated RBC % 0.0 PT INR APTT Sodium 132 L Potassium 4.4 Chloride 103 Carbon Dioxide 18 L Anion Gap 11 BUN 37 H Creatinine 3.00 H Estim Creat Clear Calc 16 Estimated GFR 20 L Glucose 166 H POC Capillary Glucose 126 H 137 H Hemoglobin A1c 6.8 H Lactic Acid Calcium 7.9 L Iron TIBC % Saturation Ferritin Total Bilirubin AST ALT Alkaline Phosphatase NT-Pro-B Natriuret Pep Total Protein Albumin Vitamin B12 Folate Nasal MRSA (PCR) Influenza A (RT-PCR) Influenza B (RT-PCR) RSV (RT-PCR) SARS-CoV-2 RNA (RT-PCR) Quality VTE Prophylaxis VTE prophylaxis: mechanical ordered
--- NOTE | 2024-06-22 07:38 | P.CONOP_ITS ---
Assessment and Plan Assessment and plan (1) Subcapital fracture of right femur: Qualifiers: Encounter type: initial encounter Fracture type: closed Qualified Code(s): S72.011A - Unspecified intracapsular fracture of right femur, initial encounter for closed fracture Code(s): S72.011A - Unspecified intracapsular fracture of right femur, initial encounter for closed fracture Status: Acute Assessment and Plan: Patient has a femoral neck fracture right. The fracture is minimally displaced at this time. He was somewhat ambulatory 1 acute tell before this. And today h ricky is having a moderate amount pain. I discussed treatment options with him in detail risks benefits limitations and alternatives. Will proceed with pinning of the right hip per his request. Discussed. History of Present Illness HPI Consult date: 06/22/24 Chief complaint: Right subcapital femoral neck fracture Review of Systems Musculoskeletal: Musculoskeletal: Reports myalgias, Reports arthralgias, Reports joint swelling and Reports stiffness PMFSH Past Medical History Medical History Anemia of chronic disease Anxiety Benign prostatic hyperplasia Cerebrovascular accident (10/27/18) Chronic anticoagulation Chronic narcotic use Chronic renal failure, stage 3 (moderate) Dementia Hyperlipidemia Hypertension Insulin dependent diabetes mellitus Paroxysmal atrial fibrillation Subdural hematoma Surgical History Surgical History History of colostomy History of inguinal hernia repair History of left hip hemiarthroplasty Family History Family History Mother Diabetes mellitus Congestive heart failure Father Cerebrovascular accident Daughter Cancer Social History Social History Social History: Healthcare power of criminal defense attorney: Kelly Fernandez, daughter. Code status: Full code. Smoking packs per day: 0.5 Smoking cigarettes per day: 10.0 Years smoked: 20 Smoking pack-years: 10.00 Smoking status: Former smoker Tobacco type: cigarettes Alcohol intake: never Substance use: never Substance use type: does not use Do You Feel Safe in your Home?: Yes Lack of Transportation: No Lack of Food: Never True Current Housing: I Have Housing Concerned About Future Housing: No Difficulty Paying Gas/Electric Bills: No Difficulty Paying for Meds: No Currently Unemployed: No Education: Decline to Answer Difficulty w/ Childcare or Family Care: No Additional living arrangements comments: . Lives at [facility]. Had 3 children. 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 Gender identity (if verbalized by the patient): Male Spiritual care concerns: No Meds Home Medications and Allergies Home Medications Medication Instructions Recorded Confirmed Type tamsulosin 0.4 mg capsule 0.4 mg PO DAILY 06/18/22 06/21/24 History famotidine 20 mg tablet 20 mg PO DAILY 11/04/23 06/21/24 History insulin detemir U-100 100 unit/mL 5 unit (0.05 mL) subcut HS #15 mL 12/21/23 06/21/24 Rx (3 mL) subcutaneous pen (Levemir FlexPen) acetaminophen 325 mg capsule 650 mg PO BID PRN Pain 01/28/24 06/21/24 History apixaban 2.5 mg tablet (Eliquis) 5 mg PO BID 01/28/24 06/21/24 History hydrocodone 10 mg-acetaminophen 1 tablet PO TID pain 01/28/24 06/21/24 History 325 mg tablet ibuprofen 600 mg tablet 600 mg PO TID PRN Pain 01/28/24 06/21/24 History metoprolol succinate 25 mg 25 mg PO QAM 01/28/24 06/21/24 History tablet,extended release 24 hr alprazolam 2 mg tablet 2 mg PO DAILY PRN Anxiety 03/10/24 06/21/24 History fluoxetine 40 mg capsule 40 mg PO DAILY 06/21/24 06/21/24 History Allergies Allergy/AdvReac Type Severity Reaction Status Date / Time No Known Allergies Allergy Verified 06/21/24 12:35 Vital Signs Vital Signs - 24 hr 06/21/24 12:26 06/21/24 13:01 06/21/24 13:30 Temperature 97.9 F Pulse Rate 102 H 100 67 Respiratory Rate 14 18 20 Blood Pressure 134/87 120/80 131/76 Pulse Oximetry 92 93 93 Oxygen Delivery Room Air 06/21/24 14:01 06/21/24 14:32 06/21/24 15:00 Temperature Pulse Rate 90 96 80 Respiratory Rate 16 20 17 Blood Pressure 118/77 117/77 124/75 Pulse Oximetry 95 93 96 Oxygen Delivery 06/21/24 15:45 06/21/24 20:40 06/21/24 20:29 Temperature 97.9 F Pulse Rate 89 89 84 Respiratory Rate 20 20 16 Blood Pressure 114/71 114/66 Pulse Oximetry 95 95 98 Oxygen Delivery Room Air Exam Narrative: Patient has pain with any manipulation of his right hip. He has tenderness palpation pain to manipulation hold it in a flexed position. Radiology Reports: Comments: Patient: Vitaly Hatfield EXAMINATION: XR hip RT 2V w AP pelvis DATE: 06/21/2024 13:01 INDICATION: Right hip pain. Fall. TECHNIQUE: An anteroposterior view of the pelvis and 2 views of right hip were obtained. COMPARISON: Pelvis and left hip radiographs 02/06/21 FINDINGS: There is a subcapital fracture of right femoral neck. The distal fracture fragment demonstrates impaction and 20 degrees valgus angulation. There is a bipolar left hip hemiarthroplasty in near-anatomic alignment. No peripro sthetic lucency to suggest loosening or infection. There is mild right hip osteoarthritis. IMPRESSION: 1. Subcapital fracture of right femoral neck. 2. Mild right hip osteoarthritis. 3. Bipolar left hip arthroplasty in near -anatomic alignment. Reviewed, dictated and finalized at location B. Hip X-Ray 01/07/21 Hip/Pelvis X-Ray 06/21/24 Orthopedics Result Report 02/06/21 Lumbar Spine MRI 06/06/24 Results Labs 06/22/24 06:00 06/22/24 06:00 Labs: Abnormal lab results 06/21/24 06/21/24 06/21/24 Range/Units 13:38 15:58 17:09 WBC 10.7 H (4.5-10.0) K/mm3 RBC 3.74 L (4.6-6.20) M/mm3 Hgb 10.6 L (14.0-18.0) g/dL Hct 32.2 L (42.0-52.0) % RDW 14.9 H (11.5-14.5) % Immature Gran % (Auto) (0-0.5) % Neut % (Auto) 81.9 H (45.5-73.1) % Lymph % (Auto) 9.8 L (18.3-44.2) % Lymph # (Auto) (0.9-3.2) K/mm3 Abs Immat Gran (auto) 0.04 H (0.00-0.031) K/mm3 Absolute Neuts (auto) 8.8 H (1.3-6.7) K/mm3 PT 16.4 H (11.1-14.7) Seconds APTT 38.4 H (22.3-36.8) Seconds Sodium 132 L (137-145) mmol/L Carbon Dioxide (22-30) mmol/L BUN 35 H (9-20) mg/dL Creatinine 2.80 H (0.7-1.3) mg/dL Estimated GFR 22 L (59 - ) Glucose 134 H (65-110) mg/dL POC Capillary Glucose 126 H (65-105) mg/dl Hemoglobin A1c (<5.7) % Calcium 8.3 L (8.4-10.2) mg/dL Iron 18 L (49-181) ug/dL % Saturation 6 L (20-50) % NT-Pro-B Natriuret Pep 91603 H (19.9-100) pg/mL 06/21/24 06/22/24 Range/Units 20:24 06:00 WBC (4.5-10.0) K/mm3 RBC 3.28 L (4.6-6.20) M/mm3 Hgb 9.2 L (14.0-18.0) g/dL Hct 28.0 L (42.0-52.0) % RDW 15.1 H (11.5-14.5) % Immature Gran % (Auto) 0.6 H (0-0.5) % Neut % (Auto) 85.0 H (45.5-73.1) % Lymph % (Auto) 8.9 L (18.3-44.2) % Lymph # (Auto) 0.84 L (0.9-3.2) K/mm3 Abs Immat Gran (auto) 0.06 H (0.00-0.031) K/mm3 Absolute Neuts (auto) 8.0 H (1.3-6.7) K/mm3 PT (11.1-14.7) Seconds APTT (22.3-36.8) Seconds Sodium 132 L (137-145) mmol/L Carbon Dioxide 18 L (22-30) mmol/L BUN 37 H (9-20) mg/dL Creatinine 3.00 H (0.7-1.3) mg/dL Estimated GFR 20 L (59 - ) Glucose 166 H (65-110) mg/dL POC Capillary Glucose 137 H (65-105) mg/dl Hemoglobin A1c 6.8 H (<5.7) % Calcium 7.9 L (8.4-10.2) mg/dL Iron (49-181) ug/dL % Saturation (20-50) % NT-Pro-B Natriuret Pep (19.9-100) pg/mL H & H 06/21/24 06/22/24 Range/Units 13:38 06:00 Hgb 10.6 L 9.2 L (14.0-18.0) g/dL Hct 32.2 L 28.0 L (42.0-52.0) % Coagulation 06/21/24 Range/Units 13:38 INR 1.3 All other labs normal.
[2024-06-22 08:28] LABS: Glucose Point of Care 177 mg/dl (65-105)
[2024-06-22 10:30] LABS: Procalcitonin 2.1 ng/mL
[2024-06-22] MEDS: LACTATED RINGERS 1,000 ML 30 ML IV CONT (12:05)
--- NOTE | 2024-06-22 12:44 | WPDANESEPPF ---
Anes - Initial Pre Proc Eval Procedure: Operation Date: 06/22/24 13:00 Proposed Procedures p Right Hip Pinning - Jovan Rueda MD Date/Time: 06/22/24 12:44 Surgeon: Karla Chan APRN Pre Op Diagnosis: Right subcapital femoral neck fracture Patient Data Age: 83 Gender: M Height: 1.83 m Weight: 68.8 kg Last Vital Signs Temp 36.6 C 06/21/24 20:29 Pulse 89 06/21/24 20:40 Resp 20 06/21/24 20:40 BP 114/66 06/21/24 20:29 Pulse Ox 96 06/22/24 10:58 O2 Del Method Room Air 06/22/24 10:58 Allergies Allergy/AdvReac Type Severity Reaction Status Date / Time No Known Allergies Allergy Verified 06/21/24 12:35 Home Medications Medication Instructions Recorded Confirmed Type tamsulosin 0.4 mg capsule 0.4 mg PO DAILY 06/18/22 06/21/24 History famotidine 20 mg tablet 20 mg PO DAILY 11/04/23 06/21/24 History insulin detemir U-100 100 unit/mL 5 unit (0.05 mL) subcut HS #15 mL 12/21/23 06/21/24 Rx (3 mL) subcutaneous pen (Levemir FlexPen) acetaminophen 325 mg capsule 650 mg PO BID PRN Pain 01/28/24 06/21/24 History apixaban 2.5 mg tablet (Eliquis) 5 mg PO BID 01/28/24 06/21/24 History hydrocodone 10 mg-acetaminophen 1 tablet PO TID pain 01/28/24 06/21/24 History 325 mg tablet ibuprofen 600 mg tablet 600 mg PO TID PRN Pain 01/28/24 06/21/24 History metoprolol succinate 25 mg 25 mg PO QAM 01/28/24 06/21/24 History tablet,extended release 24 hr alprazolam 2 mg tablet 2 mg PO DAILY PRN Anxiety 03/10/24 06/21/24 History fluoxetine 40 mg capsule 40 mg PO DAILY 06/21/24 06/21/24 History Laboratory Tests 06/21/24 06/21/24 06/21/24 13:38 15:57 15:58 WBC 10.7 H K/mm3 (4.5-10.0) RBC 3.74 L M/mm3 (4.6-6.20) Hgb 10.6 L g/dL (14.0-18.0) Hct 32.2 L % (42.0-52.0) MCV 86.1 fl (80-100) MCH 28.3 pg (26-34) MCHC 32.9 g/dl (32-36) RDW 14.9 H % (11.5-14.5) Plt Count 191 k/mm3 (150-375) MPV 9.5 fl (7.4-10.4) Immature Gran % (Auto) 0.4 % (0-0.5) Neut % (Auto) 81.9 H % (45.5-73.1) Lymph % (Auto) 9.8 L % (18.3-44.2) [place] % (Auto) 5.4 % (2.6-8.5) Eos % (Auto) 2.2 % (0-4.4) Baso % (Auto) 0.3 % (0.2-1.2) Lymph # (Auto) 1.05 K/mm3 (0.9-3.2) [place] # (Auto) 0.6 K/mm3 (0.1-0.6) Eos # (Auto) 0.2 K/mm3 (0-0.3) Baso # (Auto) 0.0 K/mm3 (0.0-0.1) Abs Immat Gran (auto) 0.04 H K/mm3 (0.00-0.031) Absolute Neuts (auto) 8.8 H K/mm3 (1.3-6.7) Absolute Nucleated RBC 0.000 K/mm3 (0.0-0.012) Nucleated RBC % 0.0 % (0.0-0.2) PT 16.4 H Seconds (11.1-14.7) INR 1.3 APTT 38.4 H Seconds (22.3-36.8) Sodium 132 L mmol/L (137-145) Potassium 4.1 mmol/L (3.4-5.0) Chloride 100 mmol/L (98-107) Carbon Dioxide 23 mmol/L (22-30) Anion Gap 9 mmol/L (4-12) BUN 35 H mg/dL (9-20) Creatinine 2.80 H mg/dL (0.7-1.3) Estim Creat Clear Calc 18 ml/min Estimated GFR 22 L (59 - ) Glucose 134 H mg/dL (65-110) POC Capillary Glucose Hemoglobin A1c Lactic Acid 0.9 mmol/L (0.7-2.0) Calcium 8.3 L mg/dL (8.4-10.2) Iron 18 L ug/dL (49-181) TIBC 277 ug/dL (265-497) % Saturation 6 L % (20-50) Ferritin 97.70 ng/mL (11.1-264) Total Bilirubin 0.7 mg/dL (0.2-1.3) AST 26 U/L (17-59) ALT 11 U/L (6-50) Alkaline Phosphatase 75 U/L (38-126) NT-Pro-B Natriuret Pep 45278 H pg/mL (19.9-100) Total Protein 7.0 g/dL (6.3-8.2) Albumin 3.7 g/dL (3.5-5.1) Vitamin B12 337.0 pg/mL (239-931) Folate 8.9 ng/mL (2.76->20) Procalcitonin Nasal MRSA (PCR) Not detected (NOT DETECTE) Influenza A (RT-PCR) Negative (Negative) Influenza B (RT-PCR) Negative (Negative) RSV (RT-PCR) Negative (Negative) SARS-CoV-2 RNA (RT-PCR) Negative (Negative) 06/21/24 06/21/24 06/22/24 17:09 20:24 06:00 WBC 9.4 K/mm3 (4.5-10.0) RBC 3.28 L M/mm3 (4.6-6.20) Hgb 9.2 L g/dL (14.0-18.0) Hct 28.0 L % (42.0-52.0) MCV 85.4 fl (80-100) MCH 28.0 pg (26-34) MCHC 32.9 g/dl (32-36) RDW 15.1 H % (11.5-14.5) Plt Count 162 k/mm3 (150-375) MPV 9.3 fl (7.4-10.4) Immature Gran % (Auto) 0.6 H % (0-0.5) Neut % (Auto) 85.0 H % (45.5-73.1) Lymph % (Auto) 8.9 L % (18.3-44.2) [place] % (Auto) 4.3 % (2.6-8.5) Eos % (Auto) 1.0 % (0-4.4) Baso % (Auto) 0.2 % (0.2-1.2) Lymph # (Auto) 0.84 L K/mm3 (0.9-3.2) [place] # (Auto) 0.4 K/mm3 (0.1-0.6) Eos # (Auto) 0.1 K/mm3 (0-0.3) Baso # (Auto) 0.0 K/mm3 (0.0-0.1) Abs Immat Gran (auto) 0.06 H K/mm3 (0.00-0.031) Absolute Neuts (auto) 8.0 H K/mm3 (1.3-6.7) Absolute Nucleated RBC 0.000 K/mm3 (0.0-0.012) Nucleated RBC % 0.0 % (0.0-0.2) PT INR APTT Sodium 132 L mmol/L (137-145) Potassium 4.4 mmol/L (3.4-5.0) Chloride 103 mmol/L (98-107) Carbon Dioxide 18 L mmol/L (22-30) Anion Gap 11 mmol/L (4-12) BUN 37 H mg/dL (9-20) Creatinine 3.00 H mg/dL (0.7-1.3) Estim Creat Clear Calc 16 ml/min Estimated GFR 20 L (59 - ) Glucose 166 H mg/dL (65-110) POC Capillary Glucose 126 H mg/dl 137 H mg/dl (65-105) (65-105) Hemoglobin A1c 6.8 H % (<5.7) Lactic Acid Calcium 7.9 L mg/dL (8.4-10.2) Iron TIBC % Saturation Ferritin Total Bilirubin AST ALT Alkaline Phosphatase NT-Pro-B Natriuret Pep Total Protein Albumin Vitamin B12 Folate Procalcitonin 2.1 ng/mL Nasal MRSA (PCR) Influenza A (RT-PCR) Influenza B (RT-PCR) RSV (RT-PCR) SARS-CoV-2 RNA (RT-PCR) 06/22/24 08:14 WBC RBC Hgb Hct MCV MCH MCHC RDW Plt Count MPV Immature Gran % (Auto) Neut % (Auto) Lymph % (Auto) [place] % (Auto) Eos % (Auto) Baso % (Auto) Lymph # (Auto) [place] # (Auto) Eos # (Auto) Baso # (Auto) Abs Immat Gran (auto) Absolute Neuts (auto) Absolute Nucleated RBC Nucleated RBC % PT INR APTT Sodium Potassium Chloride Carbon Dioxide Anion Gap BUN Creatinine Estim Creat Clear Calc Estimated GFR Glucose POC Capillary Glucose 177 H mg/dl (65-105) Hemoglobin A1c Lactic Acid Calcium Iron TIBC % Saturation Ferritin Total Bilirubin AST ALT Alkaline Phosphatase NT-Pro-B Natriuret Pep Total Protein Albumin Vitamin B12 Folate Procalcitonin Nasal MRSA (PCR) Influenza A (RT-PCR) Influenza B (RT-PCR) RSV (RT-PCR) SARS-CoV-2 RNA (RT-PCR) Patient hx anesthesia problems: none Family hx anesthesia problems: none Results Review: All pre-operative results and documents have been reviewed as part of the pre-operative evaluation. [facility] Past Medical History Medical History Anemia of chronic disease Anxiety Benign prostatic hyperplasia Cerebrovascular accident (10/27/18) Chronic anticoagulation Chronic narcotic use Chronic renal failure, stage 3 (moderate) Dementia Hyperlipidemia Hypertension Insulin dependent diabetes mellitus Paroxysmal atrial fibrillation Subdural hematoma Surgical History Surgical History History of colostomy History of inguinal hernia repair History of left hip hemiarthroplasty Family History Family History Mother Diabetes mellitus Congestive heart failure Father Cerebrovascular accident Daughter Cancer Social History Social History Social History: Healthcare power of lapidary apprentice: Kelly Fernandez, daughter. Code status: Full code. Smoking packs per day: 0.5 Smoking cigarettes per day: 10.0 Years smoked: 20 Smoking pack-years: 10.00 Smoking status: Former smoker Tobacco type: cigarettes Alcohol intake: never Substance use: never Substance use type: does not use Do You Feel Safe in your Home?: Yes Lack of Transportation: No Lack of Food: Never True Current Housing: I Have Housing Concerned About Future Housing: No Difficulty Paying Gas/Electric Bills: No Difficulty Paying for Meds: No Currently Unemployed: No Education: Decline to Answer Difficulty w/ Childcare or Family Care: No Additional living arrangements comments: . Lives at [facility]. Had 3 children. 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 Gender identity (if verbalized by the patient): Male Spiritual care concerns: No Anes - Eval Final PreProcedure Day of Procedure 06/22/24 12:44 Patient weight: thin Heart: irregular rhythm Lungs: decreased breath sounds Airway: Mallampati scale class II Neurological: other (alert) Last oral intake: >/= 8 hours ASA classification: IV Emergent: no Anesthetic plan: proceed Anesthesia type and monitoring: general LMA and standard monitoring Results Review: All pre-operative results and documents have been reviewed as part of the pre-operative evaluation. Informed Consent: The patient's anesthetic plan and its attendant risks and benefits were discussed with the patient/family/POA. Questions were solicited and answers provided to the satisfaction of the patient/family/POA.
--- NOTE | 2024-06-22 12:57 | WPDHPUPDATE1 ---
History and Physical Update Update Date/Time: 06/22/24 12:57 History and Physical has been reviewed, including an updated exam of the patient. There are NO changes in the patient's condition. Risks, benefits, and alternatives have been discussed and questions answered. Patient agrees to proceed with procedure.
[2024-06-22] MEDS: ceFAZolin 2 GM/D5W 50 ML 2 GM/50 ML BAG IVPB ×2 (13:08→20:52)
--- NOTE | 2024-06-22 13:53 | W.PM.PROC2 ---
Procedure Note - Detailed Date of Procedure 06/22/24 Pre-op Diagnosis Right subcapital femoral neck fracture Post-op Diagnosis Same Procedure Performed Open reduction internal fixation with pinning Surgeon Jovan Rueda MD Field Laboratory Operator Pamela Anesthesia General Indications Pain, Fracture Description of Procedure Patient brought to operating room #7. A general anesthetic was administered. He was sterilely prepped and draped in usual manner. Positioning the fracture in a more anatomic position. Longitudinal incision made over the trochanteric region. Three pins placed in the center of the head. 90, 95 and 95 millimeters screws placed. X-rays in the AP and lateral plane demonstrate good alignment of the fracture with good fixation. Wound irrigated hemostasis obtained closed with 2-0 Vicryl and chyna sterile dressing applied patient tolerated procedure well. Estimated Blood Loss 10 Urine Output 100 Complications No immediate complications Condition Stable Disposition PACU [facility] Billing Surgery - Charge Forward: Surgery Billing (Varsha Pinning [id number])
[2024-06-22] MEDS: HYDROmorphone HCL INJ (*CRX) 1 MG/ML SYR IV PUSH (15:19)
[2024-06-22] MEDS: AZITHROMYCIN 500 MG/NS 250 ML 500 MG/250 ML BAG 250 MG IVPB (15:52)
[2024-06-22 16:32] LABS: Glucose Point of Care 164 mg/dl (65-105)
[2024-06-22] MEDS: SENNA/DOCUSATE SODIUM TABLET 2 TAB PO (17:09)
[2024-06-22] MEDS: RIVAROXABAN 10 MG TABLET PO (17:09)
[2024-06-22 20:18] LABS: Glucose Point of Care 172 mg/dl (65-105)
[2024-06-22] MEDS: HYDROcodone/acetaminophen (*CRX) 7.5-325 MG TABLET 1 TAB PO (20:51)
[2024-06-22] MEDS: guaiFENesin 12 HR 600 MG TABCR PO (20:52)
[2024-06-22] MEDS: INSULIN GLARGINE (*BKC) 100 UNITS/ML SUB-Q (20:53)
[2024-06-23] MEDS: SODIUM CHLORIDE 0.9% IV 1,000 ML 125 ML IV CONT (01:28)
[2024-06-23] MEDS: HYDROcodone/acetaminophen (*CRX) 7.5-325 MG TABLET 1 TAB PO (04:21)
[2024-06-23] MEDS: ceFAZolin 2 GM/D5W 50 ML 2 GM/50 ML BAG IVPB ×2 (04:22→12:14)
[2024-06-23 04:29] VITALS: BP 129/95; PULSE 82; RESP 17; TEMP 36.1; O2SAT 94
[2024-06-23 06:00] LABS: Anion Gap 14 mmol/L (4-12); Blood Urea Nitrogen 37 mg/dL (9-20); Calcium 8.2 mg/dL (8.4-10.2); Carbon Dioxide 20 mmol/L (22-30); Chloride 103 mmol/L (98-107); Estimated CRCL calculation 17 ml/min; Estimated Glomerular Filt Rate 22; Glucose 145 mg/dL (65-110); Magnesium 2.1 mg/dL (1.6-2.3); Sodium 137 mmol/L (137-145)
[2024-06-23 06:11] LABS: Basophils Percent Auto 0.2 % (0.2-1.2); Eosinophils Absolute Auto 0.5 K/mm3 (0-0.3); Eosinophils Percent Auto 8.5 % (0-4.4); Immature Granulocyte Absolute 0.03 K/mm3 (0.00-0.031); Immature Granulocyte Percent A 0.5 % (0-0.5); Lymphocytes Absolute Auto 0.77 K/mm3 (0.9-3.2); Lymphocytes Percent Auto 12.1 % (18.3-44.2); Mean Corpuscular HGB Conc 32.1 g/dl (32-36); Mean Corpuscular Volume 87.2 fl (80-100); Mean Platelet Volume 10.2 fl (7.4-10.4); Monocytes Absolute Auto 0.4 K/mm3 (0.1-0.6); Monocytes Percent Auto 6.8 % (2.6-8.5); Neutrophils Absolute Auto 4.6 K/mm3 (1.3-6.7); Neutrophils Percent Auto 71.9 % (45.5-73.1); Platelet Count Result 214 k/mm3 (150-375); Red Blood Count 3.21 M/mm3 (4.6-6.20); Red Cell Distribution Width 15.1 % (11.5-14.5); White Blood Count 6.4 K/mm3 (4.5-10.0)
--- NOTE | 2024-06-23 07:10 | PM.IMPN ---
Progress Note: A&P Assessment and Plan (1) Subcapital fracture of right femur: Qualifiers: Encounter type: initial encounter Fracture type: closed Qualified Code(s): S72.011A - Unspecified intracapsular fracture of right femur, initial encounter for closed fracture Code(s): S72.011A - Unspecified intracapsular fracture of right femur, initial encounter for closed fracture Status: Acute Assessment and Plan: - fall precautions - trauma workup significant for a subcapital fracture of the right femoral neck. Head CT, C-spine CT, and CXR unremarkable for traumatic findings. - POD 1 from OR[facility] with pinning of right hip - analgesics p.r.n. - care coordination consulted for discharge planning - regular diet - PT/OT eval and treat post surgical management. Activity up with assistance, up to chair. Toe touch weight bearing - Xarelto started by ortho, SCD, EDIS khan (2) Pneumonia: Qualifiers: Laterality: bilateral Lung location: unspecified part of lung Pneumonia type: due to unspecified organism Qualified Code(s): J18.9 - Pneumonia, unspecified organism Code(s): J18.9 - Pneumonia, unspecified organism Status: Acute Assessment and Plan: - CXR: mild interstitial and airspace opacities in the bilateral mid and lower lung zones which could represent mild pulmonary edema or pneumonia. - BNP elevated. daughter suspects he recently had an echo at [facility] which was unremarkable prior to his recent back surgery, requesting. - risk factors: recent surgery and hospitalization - started on CAP tx: ceftriaxone and azithromycin on 06/21 - WBC 10.7 on admission, WBC 6.4 today - MRSA and Viral PCR - no current supplemental O2 need -added procalcitonin, 2.1. -Ordered U/A as well. UA was unable to be obtained. He is now been on antibiotics for 24 hours with Rocephin, Ancef, and azithromycin. Rocephin should cover most bacteria. Will cancel UA now. (3) Insulin dependent diabetes mellitus: Status: Chronic Assessment and Plan: - hypoglycemia protocol - POC blood glucose ACHS - home medication: Levemir 5 units HS - correct regimen ordered - low dose TIDWM, based off BMI - A1C 6.8% - fasting glucose 145 (4) Chronic kidney disease: Qualifiers: Chronic kidney disease stage: stage 3 (moderate) Chronic kidney disease stage 3 subtype: unspecified whether 3a or 3b Qualified Code(s): N18.30 - Chronic kidney disease, stage 3 unspecified Code(s): N18.9 - Chronic kidney disease, unspecified Status: Acute Assessment and Plan: - creatinine 2.8 and GFR 22, previously 2.8 and GFR 22 on 05/22/2024 - hx of CKD stage 3 - trend renal function - trend electrolytes, correct as needed - NS decreased to 75 ml per hour, can d/c when taking good PO - Cr 2.8-->3.0-->2.8 (5) Hypertension: Qualifiers: Hypertension type: unspecified Qualified Code(s): I10 - Essential (primary) hypertension Code(s): I10 - Essential (primary) hypertension Status: Acute Assessment and Plan: - chronic, currently 118/77 - home medications: Metoprolol ER 25 mg daily - monitor Plan Diet: diabetic diet GI Prophylaxis: Not currently indicated DVT Prophylaxis: SCDs Lines: Peripheral Code Status: Full code Subjective Date/time seen: 06/23/24 07:10 Interval history: No acute events overnight. Patient is postop day 1 right hip pinning. He reports he was up to the chair today with therapy. He had moderate pain transfers but does not like to take pain medication as it causes him to itch. He has no complaints of shortness of breath or chest pain. He is tolerating p.o. intake. He says he ate too much for breakfast. Review of Systems Review of Systems: All systems reviewed & are unremarkable except as noted in HPI and below Exam Narrative: General: appears comfortable, in no acute distress, elderly, frail Respiratory: breathing is unlabored with even chest rise/fall, lungs are clear and diminished without wheezing, rhonchi, and crackles Cardiovascular: Rate and rhythm regular, normal s1s2, no murmur Abdomen: Soft, round, non-tender, active bowel sounds Extremities: No cyanosis, edema, clubbing. Pulses 2/2 Neuro: A&O x 4 Skin: Warm, dry, intact. Pale, right lateral hip incision covered with dry dressing and tape which is clean dry and intact. Objective Data Vital Signs Vital Signs: Vital Signs - 24 hr 06/22/24 10:58 06/22/24 14:03 06/22/24 14:15 Temperature 98 F Pulse Rate 98 82 Respiratory Rate 14 19 Blood Pressure 131/101 H 101/56 L Pulse Oximetry 96 96 93 Oxygen Delivery Room Air Simple Face Mask Room Air Oxygen Flow Rate 8 06/22/24 14:30 06/22/24 14:42 06/22/24 12:45 Temperature 97.6 F Pulse Rate 97 96 77 Respiratory Rate 14 18 17 Blood Pressure 141/98 H 143/90 H 150/60 H Pulse Oximetry 92 91 95 Oxygen Delivery Room Air Room Air Oxygen Flow Rate 06/22/24 15:20 06/22/24 15:35 06/22/24 16:05 Temperature 96.6 F L 96.6 F L 96.6 F L Pulse Rate 79 81 82 Respiratory Rate 16 16 16 Blood Pressure 153/91 H 140/81 140/90 Pulse Oximetry 91 83 L 95 Oxygen Delivery Oxygen Flow Rate 06/22/24 17:05 06/22/24 20:29 06/22/24 23:47 Temperature 97.0 F L 97.1 F L 97.1 F L Pulse Rate 81 77 80 Respiratory Rate 16 16 14 Blood Pressure 114/79 152/90 H 153/97 H Pulse Oximetry 94 97 100 Oxygen Delivery Oxygen Flow Rate 06/22/24 20:30 06/23/24 04:29 Temperature 96.9 F L Pulse Rate 82 Respiratory Rate 17 Blood Pressure 129/95 H Pulse Oximetry 94 Oxygen Delivery Room Air Oxygen Flow Rate Intake/Output Intake/Output: Intake & Output 06/20/24 06/21/24 06/22/24 06/23/24 23:59 23:59 23:59 23:59 Intake Total 300 2459 150 Output Total 200 400 475 Balance 100 5059 -325 Meds/Results Medications: Active Medications Generic Name Dose Route Start Last Admin Trade Name Freq PRN Reason Stop Dose Admin Acetaminophen 650 mg 06/21/24 14:36 Acetaminophen 325 Mg Tablet PO Q6H PRN Mild Pain (1-3) or Fever Hydrocodone Bitart/Acetaminophen 1 tab 06/21/24 14:36 Hydrocodone/Acetaminophen (*Crx) 5-325 Mg Tablet PO Q6H PRN Pain Rated 4-6 Hydrocodone Bitart/Acetaminophen 1 tab 06/22/24 14:44 Hydrocodone/Acetaminophen (*Crx) 5-325 Mg Tablet PO Q4H PRN Pain Rated 4-6 Hydrocodone Bitart/Acetaminophen 1 tab 06/22/24 14:44 06/23/24 04:21 Hydrocodone/Acetaminophen (*Crx) 7.5-325 Mg Tablet PO 1 tab Q4H PRN Administration Pain Rated 7-10 Celecoxib 200 mg 06/23/24 08:00 Celecoxib 200 Mg Capsule PO DAILY@0800 COUNT INCLUDES THE [facility] Dextrose 12.5 gm 06/21/24 14:38 Dextrose 50% 25 Gm/50 Ml Syringe IV PUSH PRN PRN Hypoglycemia Protocol Docusate Sodium 100 mg 06/21/24 14:37 Docusate Sodium 100 Mg Capsule PO Q12H PRN Constipation Famotidine 20 mg 06/22/24 09:00 06/22/24 08:19 Famotidine 20 Mg Tablet PO Not Given DAILY ROBY Fentanyl Citrate 25 mcg 06/22/24 12:45 Fentanyl Citrate Inj (*Crx) 100 Mcg/2 Ml Vial IV PUSH Q2M PRN Pain Fluoxetine HCl 40 mg 06/22/24 09:00 06/22/24 08:19 Fluoxetine Hcl 20 Mg Capsule PO Not Given DAILY ROBY Glucagon 1 mg 06/21/24 14:38 Glucagon For Inj 1 Mg Vial IM PRN PRN Hypoglycemia Protocol Glucose 15 gm 06/21/24 14:38 Glucose Oral Gel 15 Gm Of Glucse In 37.5 Gm Tube PO PRN PRN Hypoglycemia Protocol Guaifenesin 600 mg 06/22/24 21:00 06/22/24 20:52 Guaifenesin 12 Hr 600 Mg Tabcr PO 600 mg Q12HR ROBY Administration Hydromorphone HCl 1 mg 06/22/24 14:44 06/22/24 15:19 Hydromorphone Hcl Inj (*Crx) 1 Mg/Ml Syr IV PUSH 1 mg Q2H PRN Administration Breakthrough Pain Rated 7-10 or NPO Hydromorphone HCl 0.5 mg 06/22/24 14:44 Hydromorphone Hcl Inj (*Crx) 1 Mg/Ml Syr IV PUSH Q2H PRN Breakthrough Pain Rated 4-6 or NPO Hydroxyzine Pamoate 50 mg 06/22/24 14:44 Hydroxyzine Pamoate 25 Mg Capsule PO Q4H PRN Itching Dextrose 1,000 mls @ 100 mls/hr 06/21/24 14:38 Dextrose 5% 1,000 Ml IVPB PRN PRN Hypoglycemia Protocol Ceftriaxone Sodium 1 gm in 50 mls @ 100 mls/hr 06/21/24 15:00 06/22/24 15:46 Rocephin 1 Gm/Ns 50 Ml IVPB Infused Q24H ROBY Infusion Azithromycin 500 mg in 250 mls @ 250 mls/hr 06/21/24 16:00 06/22/24 16:52 Zithromax IVPB Infused Q24H ROBY Infusion Lactated Ringer's 1,000 mls @ 30 mls/hr 06/22/24 12:45 06/22/24 14:30 Lr - Lactated Ringers Iv IV CONT Infused .Q24H ROBY Infusion Lactated Ringer's 1,000 mls @ 30 mls/hr 06/22/24 12:45 06/22/24 15:23 Lr - Lactated Ringers Iv IV CONT Not Given .Q24H ROBY Sodium Chloride 1,000 mls @ 75 mls/hr 06/22/24 14:44 06/23/24 01:28 Normal Saline Iv IV CONT 125 mls/hr .[id number] ROBY Administration Ibuprofen 800 mg in 200 mls @ 400 mls/hr 06/22/24 14:44 Caldolor 800 Mg/200 Ml IVPB Q6H PRN Breakthrough Pain Rated 1-3 or NPO Cefazolin Sodium 2 gm in 50 mls @ 100 mls/hr 06/22/24 21:00 06/23/24 04:52 Ancef 2 Gm/D5w 50 Ml IVPB 06/23/24 13:29 Infused Q8H ROBY Infusion Insulin Aspart 2 - 5 units 06/21/24 17:00 06/22/24 16:38 Insulin Aspart (*Bkc) 100 Units/Ml SUB-Q Not Given TIDWM COUNT INCLUDES THE [facility] Protocol Insulin Glargine 5 units 06/21/24 21:00 06/22/24 20:53 Insulin Glargine (*Bkc) 100 Units/Ml SUB-Q 5 units HS ROBY Administration Metoprolol Succinate 25 mg 06/22/24 09:00 06/22/24 08:19 Metoprolol Succinate Ext Rel 25 Mg Tabcr PO Not Given QAM ROBY Morphine Sulfate 2 mg 06/21/24 14:10 06/22/24 08:15 Morphine Sulfate (*Crx) 2 Mg/Ml Inj IV PUSH 2 mg Q2H PRN Administration Pain Rated 7-10 Naloxone HCl 0.1 mg 06/22/24 14:44 Naloxone Hcl 0.4 Mg/Ml Vial IV PUSH Q2M PRN Opiate Reversal Ondansetron HCl 4 mg 06/21/24 14:37 Ondansetron Inj 4 Mg/2 Ml Vial IV PUSH Q6H PRN Nausea And Vomiting Ondansetron HCl 4 mg 06/22/24 12:45 Ondansetron Inj 4 Mg/2 Ml Vial IV PUSH ONCE PRN Nausea Ondansetron HCl 4 mg 06/22/24 14:44 Ondansetron Inj 4 Mg/2 Ml Vial IV PUSH Q4H PRN Nausea And Vomiting Polyethylene Glycol 17 gm 06/23/24 09:00 Polyethylene Glycol 3350 17 Gm Powd.Pack PO QAM ROBY Rivaroxaban 10 mg 06/22/24 17:00 06/22/24 17:09 Rivaroxaban 10 Mg Tablet PO 10 mg DAILY@17 ROBY Administration Senna/Docusate Sodium 2 tab 06/22/24 17:00 06/22/24 17:09 Senna/Docusate Sodium Tablet PO 2 tab BID ROBY Administration Tamsulosin HCl 0.4 mg 06/22/24 09:00 06/22/24 08:20 Tamsulosin Hcl 0.4 Mg Capsule PO Not Given DAILY COUNT INCLUDES THE [facility] Tramadol HCl 50 mg 06/22/24 14:44 Tramadol Hcl (*Crx) 50 Mg Tablet PO Q4H PRN Pain Rated 1-3 Radiology Results: ITS Impressions Head CT 06/21/24 12:56 IMPRESSION: No acute intracranial findings. Cervical Spine CT 06/21/24 12:57 IMPRESSION: 1. No fracture. 2. Moderate cervical spondylosis. Chest X-Ray 06/21/24 13:02 IMPRESSION: 1. Mild interstitial and airspace opacities in the bilateral mid and lower lung zones which could represent mild pulmonary edema or pneumonia. Hip/Pelvis X-Ray 06/21/24 13:03 IMPRESSION: 1. Subcapital fracture of right femoral neck. 2. Mild right hip osteoarthritis. 3. Bipolar left hip arthroplasty in near-anatomic alignment. Intraoperative X-Ray 06/22/24 15:27 IMPRESSION: 1. Fluoroscopy utilized during lag screw fixation of an impacted subcapital fracture of the proximal femur in unchanged alignment. See procedure note for further detail. Labs Labs: Laboratory Results - last 24 hr 06/22/24 06/22/24 06/22/24 06:00 08:14 16:27 WBC RBC Hgb Hct MCV MCH MCHC RDW Plt Count MPV Immature Gran % (Auto) Neut % (Auto) Lymph % (Auto) [place] % (Auto) Eos % (Auto) Baso % (Auto) Lymph # (Auto) [place] # (Auto) Eos # (Auto) Baso # (Auto) Abs Immat Gran (auto) Absolute Neuts (auto) Absolute Nucleated RBC Nucleated RBC % Sodium Potassium Chloride Carbon Dioxide Anion Gap BUN Creatinine Estim Creat Clear Calc Estimated GFR Glucose POC Capillary Glucose 177 H 164 H Calcium Magnesium Procalcitonin 2.1 06/22/24 06/23/24 20:04 05:13 WBC 6.4 RBC 3.21 L Hgb 9.0 L Hct 28.0 L MCV 87.2 MCH 28.0 MCHC 32.1 RDW 15.1 H Plt Count 214 MPV 10.2 Immature Gran % (Auto) 0.5 Neut % (Auto) 71.9 Lymph % (Auto) 12.1 L [place] % (Auto) 6.8 Eos % (Auto) 8.5 H Baso % (Auto) 0.2 Lymph # (Auto) 0.77 L [place] # (Auto) 0.4 Eos # (Auto) 0.5 H Baso # (Auto) 0.0 Abs Immat Gran (auto) 0.03 Absolute Neuts (auto) 4.6 Absolute Nucleated RBC 0.000 Nucleated RBC % 0.0 Sodium 137 Potassium 4.0 Chloride 103 Carbon Dioxide 20 L Anion Gap 14 H BUN 37 H Creatinine 2.80 H Estim Creat Clear Calc 17 Estimated GFR 22 L Glucose 145 H POC Capillary Glucose 172 H Calcium 8.2 L Magnesium 2.1 Procalcitonin Quality VTE Prophylaxis VTE prophylaxis: mechanical ordered and pharmacologic ordered
[2024-06-23 08:13] VITALS: PULSE 82
[2024-06-23] MEDS: METOPROLOL SUCCINATE EXT REL 25 MG TABCR PO (08:13)
[2024-06-23] MEDS: FLUoxetine HCL 20 MG CAPSULE 40 MG PO (08:13)
[2024-06-23] MEDS: FAMOTIDINE 20 MG TABLET PO (08:13)
[2024-06-23] MEDS: CELECOXIB 200 MG CAPSULE PO (08:13)
[2024-06-23] MEDS: guaiFENesin 12 HR 600 MG TABCR PO ×2 (08:13→20:57)
[2024-06-23] MEDS: TAMSULOSIN HCL 0.4 MG CAPSULE PO (08:14)
[2024-06-23] MEDS: HYDROmorphone HCL INJ (*CRX) 1 MG/ML SYR IV PUSH ×2 (08:17→21:02)
[2024-06-23 08:20] LABS: Glucose Point of Care 149 mg/dl (65-105)
[2024-06-23 08:29] VITALS: BP 128/88; PULSE 84; RESP 17; TEMP 35.9; O2SAT 94
[2024-06-23] MEDS: SODIUM CHLORIDE 0.9% IV 1,000 ML 75 ML IV CONT (11:38)
[2024-06-23 11:50] LABS: Glucose Point of Care 177 mg/dl (65-105)
[2024-06-23 12:29] VITALS: BP 130/78; PULSE 78; RESP 16; TEMP 36.2; O2SAT 96
--- NOTE | 2024-06-23 13:33 | P.PNAN_ITS ---
Anes - Prog Note Post-Op Date/Time: 06/23/24 13:33 Cardiovascular status: normal Respiratory status: normal Airway patency: baseline Mental status: baseline Post-Op hydration status: normal Vital Signs: Last Vital Signs Temp 35.9 C L 06/23/24 08:29 Pulse 84 06/23/24 08:29 Resp 17 06/23/24 08:29 BP 128/88 06/23/24 08:29 Pulse Ox 94 06/23/24 08:29 O2 Del Method Room Air 06/23/24 10:31 O2 Flow Rate 8 06/22/24 14:03 Pain Score (VAS): 2 I/O: Intake & Output 06/22/24 06/23/24 06/23/24 23:59 07:59 15:59 Intake Total 4807 633 7439.0 Output Total 300 475 Balance 1000 -325 1170.0 Laboratory Tests 06/23/24 05:13 06/23/24 05:13 06/22/24 06/22/24 06/23/24 16:27 20:04 05:13 WBC 6.4 RBC 3.21 L Hgb 9.0 L Hct 28.0 L MCV 87.2 MCH 28.0 MCHC 32.1 RDW 15.1 H Plt Count 214 MPV 10.2 Immature Gran % (Auto) 0.5 Neut % (Auto) 71.9 Lymph % (Auto) 12.1 L [place] % (Auto) 6.8 Eos % (Auto) 8.5 H Baso % (Auto) 0.2 Lymph # (Auto) 0.77 L [place] # (Auto) 0.4 Eos # (Auto) 0.5 H Baso # (Auto) 0.0 Abs Immat Gran (auto) 0.03 Absolute Neuts (auto) 4.6 Absolute Nucleated RBC 0.000 Nucleated RBC % 0.0 Sodium 137 Potassium 4.0 Chloride 103 Carbon Dioxide 20 L Anion Gap 14 H BUN 37 H Creatinine 2.80 H Estim Creat Clear Calc 17 Estimated GFR 22 L Glucose 145 H POC Capillary Glucose 164 H 172 H Calcium 8.2 L Magnesium 2.1 06/23/24 06/23/24 08:14 11:35 WBC RBC Hgb Hct MCV MCH MCHC RDW Plt Count MPV Immature Gran % (Auto) Neut % (Auto) Lymph % (Auto) [place] % (Auto) Eos % (Auto) Baso % (Auto) Lymph # (Auto) [place] # (Auto) Eos # (Auto) Baso # (Auto) Abs Immat Gran (auto) Absolute Neuts (auto) Absolute Nucleated RBC Nucleated RBC % Sodium Potassium Chloride Carbon Dioxide Anion Gap BUN Creatinine Estim Creat Clear Calc Estimated GFR Glucose POC Capillary Glucose 149 H 177 H Calcium Magnesium Microbiology 06/21/24 16:01 Blood Blood Culture - Preliminary 06/21/24 16:01 Blood Blood Culture - Preliminary Post-procedural complaints: none Patient Feedback: Patient satisfied with anesthetic care.
[2024-06-23] MEDS: AZITHROMYCIN 500 MG/NS 250 ML 500 MG/250 ML BAG 250 MG IVPB (14:47)
--- NOTE | 2024-06-23 16:21 | P.PNOP_ITS ---
Progress Note: A&P Assessment and Plan (1) Subcapital fracture of right femur: Qualifiers: Encounter type: initial encounter Fracture type: closed Qualified Code(s): S72.011A - Unspecified intracapsular fracture of right femur, initial encounter for closed fracture Code(s): S72.011A - Unspecified intracapsular fracture of right femur, initial encounter for closed fracture Status: Acute Assessment and Plan: S/P ORIF for Right Hip Fx. Will mobilize. Subjective Subjective Date/Time Seen: 06/23/24 16:21 Post Op day: 1 Principal diagnosis: Right Hip Pinning for Subcapital Fracture Review of Systems Musculoskeletal: Musculoskeletal: Reports arthralgias, Reports joint swelling and Reports limited range of motion Exam Narrative: Wiggles toes. Dressing intact Objective Data Vital Signs Vital Signs: Vital Signs - 24 hr 06/22/24 17:05 06/22/24 20:29 06/22/24 23:47 Temperature 97.0 F L 97.1 F L 97.1 F L Pulse Rate 81 77 80 Respiratory Rate 16 16 14 Blood Pressure 114/79 152/90 H 153/97 H Pulse Oximetry 94 97 100 Oxygen Delivery 06/22/24 20:30 06/23/24 04:29 06/23/24 08:13 Temperature 96.9 F L Pulse Rate 82 82 Respiratory Rate 17 Blood Pressure 129/95 H Pulse Oximetry 94 Oxygen Delivery Room Air 06/23/24 08:29 06/23/24 10:13 06/23/24 10:31 Temperature 96.7 F L Pulse Rate 84 Respiratory Rate 17 Blood Pressure 128/88 Pulse Oximetry 94 Oxygen Delivery Room Air Room Air 06/23/24 12:29 Temperature 97.2 F L Pulse Rate 78 Respiratory Rate 16 Blood Pressure 130/78 Pulse Oximetry 96 Oxygen Delivery Intake/Output Intake/Output: Intake & Output 06/20/24 06/21/24 06/22/24 06/23/24 23:59 23:59 23:59 23:59 Intake Total 300 2459 1710.0 Output Total 200 400 475 Balance 100 2059 1235.0 Meds/Results Medications: Active Medications Generic Name Dose Route Start Last Admin Trade Name Freq PRN Reason Stop Dose Admin Acetaminophen 650 mg 06/23/24 17:00 Acetaminophen 325 Mg Tablet PO Q6HR ROBY Hydrocodone Bitart/Acetaminophen 1 tab 06/21/24 14:36 Hydrocodone/Acetaminophen (*Crx) 5-325 Mg Tablet PO Q6H PRN Pain Rated 4-6 Hydrocodone Bitart/Acetaminophen 1 tab 06/22/24 14:44 Hydrocodone/Acetaminophen (*Crx) 5-325 Mg Tablet PO Q4H PRN Pain Rated 4-6 Hydrocodone Bitart/Acetaminophen 1 tab 06/22/24 14:44 06/23/24 04:21 Hydrocodone/Acetaminophen (*Crx) 7.5-325 Mg Tablet PO 1 tab Q4H PRN Administration Pain Rated 7-10 Celecoxib 200 mg 06/23/24 08:00 06/23/24 08:13 Celecoxib 200 Mg Capsule PO 200 mg DAILY@0800 ROBY Administration Dextrose 12.5 gm 06/21/24 14:38 Dextrose 50% 25 Gm/50 Ml Syringe IV PUSH PRN PRN Hypoglycemia Protocol Docusate Sodium 100 mg 06/21/24 14:37 Docusate Sodium 100 Mg Capsule PO Q12H PRN Constipation Famotidine 20 mg 06/22/24 09:00 06/23/24 08:13 Famotidine 20 Mg Tablet PO 20 mg DAILY ROBY Administration Fentanyl Citrate 25 mcg 06/22/24 12:45 Fentanyl Citrate Inj (*Crx) 100 Mcg/2 Ml Vial IV PUSH Q2M PRN Pain Fluoxetine HCl 40 mg 06/22/24 09:00 06/23/24 08:13 Fluoxetine Hcl 20 Mg Capsule PO 40 mg DAILY ROBY Administration Glucagon 1 mg 06/21/24 14:38 Glucagon For Inj 1 Mg Vial IM PRN PRN Hypoglycemia Protocol Glucose 15 gm 06/21/24 14:38 Glucose Oral Gel 15 Gm Of Glucse In 37.5 Gm Tube PO PRN PRN Hypoglycemia Protocol Guaifenesin 600 mg 06/22/24 21:00 06/23/24 08:13 Guaifenesin 12 Hr 600 Mg Tabcr PO 600 mg Q12HR ROBY Administration Hydromorphone HCl 1 mg 06/22/24 14:44 06/23/24 08:17 Hydromorphone Hcl Inj (*Crx) 1 Mg/Ml Syr IV PUSH 1 mg Q2H PRN Administration Breakthrough Pain Rated 7-10 or NPO Hydromorphone HCl 0.5 mg 06/22/24 14:44 Hydromorphone Hcl Inj (*Crx) 1 Mg/Ml Syr IV PUSH Q2H PRN Breakthrough Pain Rated 4-6 or NPO Hydroxyzine Pamoate 50 mg 06/22/24 14:44 Hydroxyzine Pamoate 25 Mg Capsule PO Q4H PRN Itching Dextrose 1,000 mls @ 100 mls/hr 06/21/24 14:38 Dextrose 5% 1,000 Ml IVPB PRN PRN Hypoglycemia Protocol Ceftriaxone Sodium 1 gm in 50 mls @ 100 mls/hr 06/21/24 15:00 06/23/24 14:43 Rocephin 1 Gm/Ns 50 Ml IVPB Infused Q24H ROBY Infusion Azithromycin 500 mg in 250 mls @ 250 mls/hr 06/21/24 16:00 06/23/24 15:47 Zithromax IVPB Infused Q24H ROBY Infusion Lactated Ringer's 1,000 mls @ 30 mls/hr 06/22/24 12:45 06/23/24 10:15 Lr - Lactated Ringers Iv IV CONT Not Given .Q24H ROBY Lactated Ringer's 1,000 mls @ 30 mls/hr 06/22/24 12:45 06/23/24 10:15 Lr - Lactated Ringers Iv IV CONT Not Given .Q24H ROBY Ibuprofen 800 mg in 200 mls @ 400 mls/hr 06/22/24 14:44 Caldolor 800 Mg/200 Ml IVPB Q6H PRN Breakthrough Pain Rated 1-3 or NPO Insulin Aspart 2 - 5 units 06/21/24 17:00 06/23/24 12:13 Insulin Aspart (*Bkc) 100 Units/Ml SUB-Q Not Given TIDWM [facility] Protocol Insulin Glargine 5 units 06/21/24 21:00 06/22/24 20:53 Insulin Glargine (*Bkc) 100 Units/Ml SUB-Q 5 units HS ROBY Administration Metoprolol Succinate 25 mg 06/22/24 09:00 06/23/24 08:13 Metoprolol Succinate Ext Rel 25 Mg Tabcr PO 25 mg QAM ROBY Administration Morphine Sulfate 2 mg 06/21/24 14:10 06/22/24 08:15 Morphine Sulfate (*Crx) 2 Mg/Ml Inj IV PUSH 2 mg Q2H PRN Administration Pain Rated 7-10 Naloxone HCl 0.1 mg 06/22/24 14:44 Naloxone Hcl 0.4 Mg/Ml Vial IV PUSH Q2M PRN Opiate Reversal Ondansetron HCl 4 mg 06/21/24 14:37 Ondansetron Inj 4 Mg/2 Ml Vial IV PUSH Q6H PRN Nausea And Vomiting Ondansetron HCl 4 mg 06/22/24 12:45 Ondansetron Inj 4 Mg/2 Ml Vial IV PUSH ONCE PRN Nausea Ondansetron HCl 4 mg 06/22/24 14:44 Ondansetron Inj 4 Mg/2 Ml Vial IV PUSH Q4H PRN Nausea And Vomiting Polyethylene Glycol 17 gm 06/23/24 09:00 06/23/24 08:14 Polyethylene Glycol 3350 17 Gm Powd.Pack PO Not Given QAM [facility] Rivaroxaban 10 mg 06/22/24 17:00 06/22/24 17:09 Rivaroxaban 10 Mg Tablet PO 10 mg DAILY@17 ROBY Administration Senna/Docusate Sodium 2 tab 06/22/24 17:00 06/23/24 15:20 Senna/Docusate Sodium Tablet PO Not Given BID [facility] Tamsulosin HCl 0.4 mg 06/22/24 09:00 06/23/24 08:14 Tamsulosin Hcl 0.4 Mg Capsule PO 0.4 mg DAILY [facility] Administration Tramadol HCl 50 mg 06/22/24 14:44 Tramadol Hcl (*Crx) 50 Mg Tablet PO Q4H PRN Pain Rated 1-3 Radiology Results: ITS Impressions Head CT 06/21/24 12:56 IMPRESSION: No acute intracranial findings. Cervical Spine CT 06/21/24 12:57 IMPRESSION: 1. No fracture. 2. Moderate cervical spondylosis. Chest X-Ray 06/21/24 13:02 IMPRESSION: 1. Mild interstitial and airspace opacities in the bilateral mid and lower lung zones which could represent mild pulmonary edema or pneumonia. Hip/Pelvis X-Ray 06/21/24 13:03 IMPRESSION: 1. Subcapital fracture of right femoral neck. 2. Mild right hip osteoarthritis. 3. Bipolar left hip arthroplasty in near-anatomic alignment. Intraoperative X-Ray 06/22/24 15:27 IMPRESSION: 1. Fluoroscopy utilized during lag screw fixation of an impacted subcapital fracture of the proximal femur in unchanged alignment. See procedure note for fu rther detail. Labs Labs: Laboratory Results - last 24 hr 06/22/24 06/22/24 06/23/24 16:27 20:04 05:13 WBC 6.4 RBC 3.21 L Hgb 9.0 L Hct 28.0 L MCV 87.2 MCH 28.0 MCHC 32.1 RDW 15.1 H Plt Count 214 MPV 10.2 Immature Gran % (Auto) 0.5 Neut % (Auto) 71.9 Lymph % (Auto) 12.1 L [place] % (Auto) 6.8 Eos % (Auto) 8.5 H Baso % (Auto) 0.2 Lymph # (Auto) 0.77 L [place] # (Auto) 0.4 Eos # (Auto) 0.5 H Baso # (Auto) 0.0 Abs Immat Gran (auto) 0.03 Absolute Neuts (auto) 4.6 Absolute Nucleated RBC 0.000 Nucleated RBC % 0.0 Sodium 137 Potassium 4.0 Chloride 103 Carbon Dioxide 20 L Anion Gap 14 H BUN 37 H Creatinine 2.80 H Estim Creat Clear Calc 17 Estimated GFR 22 L Glucose 145 H POC Capillary Glucose 164 H 172 H Calcium 8.2 L Magnesium 2.1 06/23/24 06/23/24 08:14 11:35 WBC RBC Hgb Hct MCV MCH MCHC RDW Plt Count MPV Immature Gran % (Auto) Neut % (Auto) Lymph % (Auto) [place] % (Auto) Eos % (Auto) Baso % (Auto) Lymph # (Auto) [place] # (Auto) Eos # (Auto) Baso # (Auto) Abs Immat Gran (auto) Absolute Neuts (auto) Absolute Nucleated RBC Nucleated RBC % Sodium Potassium Chloride Carbon Dioxide Anion Gap BUN Creatinine Estim Creat Clear Calc Estimated GFR Glucose POC Capillary Glucose 149 H 177 H Calcium Magnesium
[2024-06-23] MEDS: RIVAROXABAN 10 MG TABLET PO (16:26)
[2024-06-23] MEDS: ACETAMINOPHEN 325 MG TABLET 650 MG PO (16:27)
[2024-06-23 16:29] VITALS: BP 140/93; PULSE 86; RESP 18; TEMP 36.4; O2SAT 97
[2024-06-23 17:52] LABS: Glucose Point of Care 174 mg/dl (65-105)
[2024-06-23 20:19] LABS: Glucose Point of Care 186 mg/dl (65-105)
[2024-06-23] MEDS: INSULIN GLARGINE (*BKC) 100 UNITS/ML SUB-Q (20:56)
[2024-06-23 21:43] VITALS: BP 137/84; PULSE 78; RESP 18; TEMP 36.2; O2SAT 97
[2024-06-24] VITALS (7 sets, daily range): BP systolic 145–185; BP diastolic 89–125; PULSE 70–89; RESP 18; TEMP 35.8–36.6; O2SAT 94–98
[2024-06-24] MEDS: ACETAMINOPHEN 325 MG TABLET 650 MG PO ×5 (00:23→23:54)
[2024-06-24 05:43] LABS: Basophils Percent Auto 0.2 % (0.2-1.2); Eosinophils Absolute Auto 0.8 K/mm3 (0-0.3); Eosinophils Percent Auto 14.9 % (0-4.4); Hemoglobin 8.4 g/dL (14.0-18.0); Immature Granulocyte Absolute 0.01 K/mm3 (0.00-0.031); Immature Granulocyte Percent A 0.2 % (0-0.5); Lymphocytes Absolute Auto 0.81 K/mm3 (0.9-3.2); Lymphocytes Percent Auto 14.9 % (18.3-44.2); Mean Corpuscular HGB Conc 31.1 g/dl (32-36); Mean Corpuscular Hemoglobin 27.3 pg (26-34); Mean Corpuscular Volume 87.7 fl (80-100); Monocytes Absolute Auto 0.4 K/mm3 (0.1-0.6); Monocytes Percent Auto 7.7 % (2.6-8.5); Neutrophils Absolute Auto 3.4 K/mm3 (1.3-6.7); Neutrophils Percent Auto 62.1 % (45.5-73.1); Platelet Count Result 203 k/mm3 (150-375); Red Blood Count 3.08 M/mm3 (4.6-6.20); Red Cell Distribution Width 15.1 % (11.5-14.5); White Blood Count 5.4 K/mm3 (4.5-10.0)
[2024-06-24 05:59] LABS: Anion Gap 12 mmol/L (4-12); Blood Urea Nitrogen 37 mg/dL (9-20); Calcium 7.9 mg/dL (8.4-10.2); Carbon Dioxide 18 mmol/L (22-30); Chloride 107 mmol/L (98-107); Estimated CRCL calculation 19 ml/min; Estimated Glomerular Filt Rate 24; Glucose 119 mg/dL (65-110); Magnesium 2.1 mg/dL (1.6-2.3); Sodium 137 mmol/L (137-145)
--- NOTE | 2024-06-24 07:36 | PM.IMPN ---
Progress Note: A&P Assessment and Plan (1) Subcapital fracture of right femur: Qualifiers: Encounter type: initial encounter Fracture type: closed Qualified Code(s): S72.011A - Unspecified intracapsular fracture of right femur, initial encounter for closed fracture Code(s): S72.011A - Unspecified intracapsular fracture of right femur, initial encounter for closed fracture Status: Acute Assessment and Plan: - fall precautions - trauma workup significant for a subcapital fracture of the right femoral neck. Head CT, C-spine CT, and CXR unremarkable for traumatic findings. - POD 2 from ORIF with pinning of right hip - analgesics p.r.n. - care coordination consulted for discharge planning - regular diet - PT/OT eval and treat post surgical management. Activity up with assistance, up to chair. Toe touch weight bearing - Xarelto started by ortho, SCD, EDIS khan (2) Pneumonia: Qualifiers: Laterality: bilateral Lung location: unspecified part of lung Pneumonia type: due to unspecified organism Qualified Code(s): J18.9 - Pneumonia, unspecified organism Code(s): J18.9 - Pneumonia, unspecified organism Status: Acute Assessment and Plan: - CXR: mild interstitial and airspace opacities in the bilateral mid and lower lung zones which could represent mild pulmonary edema or pneumonia. - BNP elevated. daughter suspects he recently had an echo at [facility] which was unremarkable prior to his recent back surgery, requesting. - risk factors: recent surgery and hospitalization - started on CAP tx: ceftriaxone and azithromycin on 06/21 - WBC 10.7 on admission, WBC 6.4 today - MRSA and Viral PCR - no current supplemental O2 need -added procalcitonin, 2.1. -Ordered U/A as well. UA was unable to be obtained. He is now been on antibiotics for 24 hours with Rocephin, Ancef, and azithromycin. Rocephin should cover most bacteria. Will cancel UA now. (3) Insulin dependent diabetes mellitus: Status: Chronic Assessment and Plan: - hypoglycemia protocol - POC blood glucose ACHS - home medication: Levemir 5 units HS - correct regimen ordered - low dose TIDWM, based off BMI - A1C 6.8% - fasting glucose 119 (4) Chronic kidney disease: Qualifiers: Chronic kidney disease stage: stage 3 (moderate) Chronic kidney disease stage 3 subtype: unspecified whether 3a or 3b Qualified Code(s): N18.30 - Chronic kidney disease, stage 3 unspecified Code(s): N18.9 - Chronic kidney disease, unspecified Status: Acute Assessment and Plan: - creatinine 2.8 and GFR 22, previously 2.8 and GFR 22 on 05/22/2024 - hx of CKD stage 3 - trend renal function - trend electrolytes, correct as needed - NS decreased to 75 ml per hour, can d/c when taking good PO - Cr 2.8-->3.0-->2.8--> 2.6 (5) Hypertension: Qualifiers: Hypertension type: unspecified Qualified Code(s): I10 - Essential (primary) hypertension Code(s): I10 - Essential (primary) hypertension Status: Acute Assessment and Plan: - chronic, currently 165/125 mmhg - home medications: Metoprolol ER 25 mg daily - HTN overnight 165/125 mm hg, asymptomatic, suspect pain related as he has not taken any oral narcotic medications. - IV fluids remained at 75 mL an hour overnight despite order being discontinued. Blood pressure elevation is likely due to IV fluids. Fluids were stopped, nursing updated. patient is asymptomatic. He has no concerns for pulmonary congestion. - prn hydralazine for SBP > 180 mm hg, DBP > 110 mm hg Plan Diet: diabetic diet GI Prophylaxis: Not currently indicated DVT Prophylaxis: SCDs Lines: Peripheral Code Status: Full code Subjective Date/time seen: 06/24/24 07:36 Interval history: No acute events overnight. Patient is sitting in his chair. He has no complaints during my visit. He states he is in no pain. His blood pressure is a little high today but he has no complaints of chest pain or headache. Review of Systems Review of Systems: All systems reviewed & are unremarkable except as noted in HPI and below Exam Narrative: General: appears comfortable, in no acute distress, elderly, frail Respiratory: breathing is unlabored with even chest rise/fall, lungs are clear and diminished without wheezing, rhonchi, and crackles Cardiovascular: Rate and rhythm regular, normal s1s2, no murmur Abdomen: Soft, round, non-tender, active bowel sounds Extremities: No cyanosis, edema, clubbing. Pulses 2/2 Neuro: A&O x 4 Skin: Warm, dry, intact. Pale, right lateral hip incision covered with dry dressing and tape which is clean dry and intact. Objective Data Vital Signs Vital Signs: Vital Signs - 24 hr 06/23/24 08:13 06/23/24 08:29 06/23/24 10:13 Temperature 96.7 F L Pulse Rate 82 84 Respiratory Rate 17 Blood Pressure 128/88 Pulse Oximetry 94 Oxygen Delivery Room Air 06/23/24 10:31 06/23/24 12:29 06/23/24 16:29 Temperature 97.2 F L 97.6 F Pulse Rate 78 86 Respiratory Rate 16 18 Blood Pressure 130/78 140/93 H Pulse Oximetry 96 97 Oxygen Delivery Room Air 06/23/24 21:43 06/24/24 00:00 06/23/24 20:38 Temperature 97.2 F L 97.3 F L Pulse Rate 78 85 Respiratory Rate 18 18 Blood Pressure 137/84 145/94 H Pulse Oximetry 97 94 Oxygen Delivery Room Air 06/24/24 05:58 Temperature 97.4 F L Pulse Rate 77 Respiratory Rate 18 Blood Pressure 165/125 H Pulse Oximetry 98 Oxygen Delivery Intake/Output Intake/Output: Intake & Output 06/21/24 06/22/24 06/23/24 06/24/24 23:59 23:59 23:59 23:59 Intake Total 300 2459 1950.0 1500 Output Total 200 400 475 325 Balance 100 2059 1475.0 1175 Meds/Results Medications: Active Medications Generic Name Dose Route Start Last Admin Trade Name Freq PRN Reason Stop Dose Admin Acetaminophen 650 mg 06/23/24 17:00 06/24/24 05:18 Acetaminophen 325 Mg Tablet PO 650 mg Q6HR ROBY Administration Hydrocodone Bitart/Acetaminophen 1 tab 06/21/24 14:36 Hydrocodone/Acetaminophen (*Crx) 5-325 Mg Tablet PO Q6H PRN Pain Rated 4-6 Hydrocodone Bitart/Acetaminophen 1 tab 06/22/24 14:44 Hydrocodone/Acetaminophen (*Crx) 5-325 Mg Tablet PO Q4H PRN Pain Rated 4-6 Hydrocodone Bitart/Acetaminophen 1 tab 06/22/24 14:44 06/23/24 04:21 Hydrocodone/Acetaminophen (*Crx) 7.5-325 Mg Tablet PO 1 tab Q4H PRN Administration Pain Rated 7-10 Celecoxib 200 mg 06/23/24 08:00 06/23/24 08:13 Celecoxib 200 Mg Capsule PO 200 mg DAILY@0800 ROBY Administration Dextrose 12.5 gm 06/21/24 14:38 Dextrose 50% 25 Gm/50 Ml Syringe IV PUSH PRN PRN Hypoglycemia Protocol Docusate Sodium 100 mg 06/21/24 14:37 Docusate Sodium 100 Mg Capsule PO Q12H PRN Constipation Famotidine 20 mg 06/22/24 09:00 06/23/24 08:13 Famotidine 20 Mg Tablet PO 20 mg DAILY ROBY Administration Fentanyl Citrate 25 mcg 06/22/24 12:45 Fentanyl Citrate Inj (*Crx) 100 Mcg/2 Ml Vial IV PUSH Q2M PRN Pain Fluoxetine HCl 40 mg 06/22/24 09:00 06/23/24 08:13 Fluoxetine Hcl 20 Mg Capsule PO 40 mg DAILY ROBY Administration Glucagon 1 mg 06/21/24 14:38 Glucagon For Inj 1 Mg Vial IM PRN PRN Hypoglycemia Protocol Glucose 15 gm 06/21/24 14:38 Glucose Oral Gel 15 Gm Of Glucse In 37.5 Gm Tube PO PRN PRN Hypoglycemia Protocol Guaifenesin 600 mg 06/22/24 21:00 06/23/24 20:57 Guaifenesin 12 Hr 600 Mg Tabcr PO 600 mg Q12HR ROBY Administration Hydromorphone HCl 1 mg 06/22/24 14:44 06/23/24 21:02 Hydromorphone Hcl Inj (*Crx) 1 Mg/Ml Syr IV PUSH 1 mg Q2H PRN Administration Breakthrough Pain Rated 7-10 or NPO Hydromorphone HCl 0.5 mg 06/22/24 14:44 Hydromorphone Hcl Inj (*Crx) 1 Mg/Ml Syr IV PUSH Q2H PRN Breakthrough Pain Rated 4-6 or NPO Hydroxyzine Pamoate 50 mg 06/22/24 14:44 Hydroxyzine Pamoate 25 Mg Capsule PO Q4H PRN Itching Dextrose 1,000 mls @ 100 mls/hr 06/21/24 14:38 Dextrose 5% 1,000 Ml IVPB PRN PRN Hypoglycemia Protocol Ceftriaxone Sodium 1 gm in 50 mls @ 100 mls/hr 06/21/24 15:00 06/23/24 14:43 Rocephin 1 Gm/Ns 50 Ml IVPB Infused Q24H ROBY Infusion Azithromycin 500 mg in 250 mls @ 250 mls/hr 06/21/24 16:00 06/23/24 15:47 Zithromax IVPB Infused Q24H ROBY Infusion Lactated Ringer's 1,000 mls @ 30 mls/hr 06/22/24 12:45 06/23/24 10:15 Lr - Lactated Ringers Iv IV CONT Not Given .Q24H ROBY Lactated Ringer's 1,000 mls @ 30 mls/hr 06/22/24 12:45 06/23/24 10:15 Lr - Lactated Ringers Iv IV CONT Not Given .Q24H ROBY Ibuprofen 800 mg in 200 mls @ 400 mls/hr 06/22/24 14:44 Caldolor 800 Mg/200 Ml IVPB Q6H PRN Breakthrough Pain Rated 1-3 or NPO Insulin Aspart 2 - 5 units 06/21/24 17:00 06/23/24 18:04 Insulin Aspart (*Bkc) 100 Units/Ml SUB-Q Not Given TIDWM [facility] Protocol Insulin Glargine 5 units 06/21/24 21:00 06/23/24 20:56 Insulin Glargine (*Bkc) 100 Units/Ml SUB-Q 5 units HS [facility] Administration Metoprolol Succinate 25 mg 06/22/24 09:00 06/23/24 08:13 Metoprolol Succinate Ext Rel 25 Mg Tabcr PO 25 mg QAM ROBY Administration Morphine Sulfate 2 mg 06/21/24 14:10 06/22/24 08:15 Morphine Sulfate (*Crx) 2 Mg/Ml Inj IV PUSH 2 mg Q2H PRN Administration Pain Rated 7-10 Naloxone HCl 0.1 mg 06/22/24 14:44 Naloxone Hcl 0.4 Mg/Ml Vial IV PUSH Q2M PRN Opiate Reversal Ondansetron HCl 4 mg 06/21/24 14:37 Ondansetron Inj 4 Mg/2 Ml Vial IV PUSH Q6H PRN Nausea And Vomiting Ondansetron HCl 4 mg 06/22/24 12:45 Ondansetron Inj 4 Mg/2 Ml Vial IV PUSH ONCE PRN Nausea Ondansetron HCl 4 mg 06/22/24 14:44 Ondansetron Inj 4 Mg/2 Ml Vial IV PUSH Q4H PRN Nausea And Vomiting Polyethylene Glycol 17 gm 06/23/24 09:00 06/23/24 08:14 Polyethylene Glycol 3350 17 Gm Powd.Pack PO Not Given QAM [facility] Rivaroxaban 10 mg 06/22/24 17:00 06/23/24 16:26 Rivaroxaban 10 Mg Tablet PO 10 mg DAILY@17 [facility] Administration Senna/Docusate Sodium 2 tab 06/22/24 17:00 06/23/24 15:20 Senna/Docusate Sodium Tablet PO Not Given BID [facility] Tamsulosin HCl 0.4 mg 06/22/24 09:00 06/23/24 08:14 Tamsulosin Hcl 0.4 Mg Capsule PO 0.4 mg DAILY [facility] Administration Tramadol HCl 50 mg 06/22/24 14:44 Tramadol Hcl (*Crx) 50 Mg Tablet PO Q4H PRN Pain Rated 1-3 Radiology Results: ITS Impressions Head CT 06/21/24 12:56 IMPRESSION: No acute intracranial findings. Cervical Spine CT 06/21/24 12:57 IMPRESSION: 1. No fracture. 2. Moderate cervical spondylosis. Chest X-Ray 06/21/24 13:02 IMPRESSION: 1. Mild interstitial and airspace opacities in the bilateral mid and lower lung zones which could represent mild pulmonary edema or pneumonia. Hip/Pelvis X-Ray 06/21/24 13:03 IMPRESSION: 1. Subcapital fracture of right femoral neck. 2. Mild right hip osteoarthritis. 3. Bipolar left hip arthroplasty in near-anatomic alignment. Intraoperative X-Ray 06/22/24 15:27 IMPRESSION: 1. Fluoroscopy utilized during lag screw fixation of an impacted subcapital fracture of the proximal femur in unchanged alignment. See procedure note for further detail. Labs Labs: Laboratory Results - last 24 hr 06/23/24 06/23/24 06/23/24 08:14 11:35 17:37 WBC RBC Hgb Hct MCV MCH MCHC RDW Plt Count MPV Immature Gran % (Auto) Neut % (Auto) Lymph % (Auto) [place] % (Auto) Eos % (Auto) Baso % (Auto) Lymph # (Auto) [place] # (Auto) Eos # (Auto) Baso # (Auto) Abs Immat Gran (auto) Absolute Neuts (auto) Absolute Nucleated RBC Nucleated RBC % Sodium Potassium Chloride Carbon Dioxide Anion Gap BUN Creatinine Estim Creat Clear Calc Estimated GFR Glucose POC Capillary Glucose 149 H 177 H 174 H Calcium Magnesium 06/23/24 06/24/24 20:16 05:34 WBC 5.4 RBC 3.08 L Hgb 8.4 L Hct 27.0 L MCV 87.7 MCH 27.3 MCHC 31.1 L RDW 15.1 H Plt Count 203 MPV 10.0 Immature Gran % (Auto) 0.2 Neut % (Auto) 62.1 Lymph % (Auto) 14.9 L [place] % (Auto) 7.7 Eos % (Auto) 14.9 H Baso % (Auto) 0.2 Lymph # (Auto) 0.81 L [place] # (Auto) 0.4 Eos # (Auto) 0.8 H Baso # (Auto) 0.0 Abs Immat Gran (auto) 0.01 Absolute Neuts (auto) 3.4 Absolute Nucleated RBC 0.000 Nucleated RBC % 0.0 Sodium 137 Potassium 4.0 Chloride 107 Carbon Dioxide 18 L Anion Gap 12 BUN 37 H Creatinine 2.60 H Estim Creat Clear Calc 19 Estimated GFR 24 L Glucose 119 H POC Capillary Glucose 186 H Calcium 7.9 L Magnesium 2.1 Quality VTE Prophylaxis VTE prophylaxis: mechanical ordered and pharmacologic ordered
[2024-06-24] MEDS: guaiFENesin 12 HR 600 MG TABCR PO ×2 (08:15→20:43)
[2024-06-24] MEDS: FLUoxetine HCL 20 MG CAPSULE 40 MG PO (08:15)
[2024-06-24] MEDS: FAMOTIDINE 20 MG TABLET PO (08:16)
[2024-06-24] MEDS: METOPROLOL SUCCINATE EXT REL 25 MG TABCR PO (08:16)
[2024-06-24] MEDS: CELECOXIB 200 MG CAPSULE PO (08:16)
[2024-06-24] MEDS: TAMSULOSIN HCL 0.4 MG CAPSULE PO (08:16)
[2024-06-24 09:25] LABS: Glucose Point of Care 119 mg/dl (65-105)
[2024-06-24] MEDS: hydrALAZINE HCL 20 MG/ML VIAL 10 MG IV PUSH ×2 (10:58→20:43)
[2024-06-24] MEDS: AZITHROMYCIN 500 MG/NS 250 ML 500 MG/250 ML BAG 250 MG IVPB (14:22)
[2024-06-24] MEDS: RIVAROXABAN 10 MG TABLET PO (17:02)
[2024-06-24 17:16] LABS: Glucose Point of Care 163 mg/dl (65-105)
[2024-06-24 20:35] LABS: Glucose Point of Care 154 mg/dl (65-105)
[2024-06-24] MEDS: INSULIN GLARGINE (*BKC) 100 UNITS/ML SUB-Q (20:42)
--- NOTE | 2024-06-25 01:12 | PC.NURSE ---
Daylight Savings Time For Daylight Savings Time Ending in the Fall - Clocks are moved back. For Daylight Savings Time Beginning in the Spring - Clocks are moved ahead. For [facility], the time of change occurs at 0200 hrs. Time is taken from the train station server. This entry on the patient's chart recognizes the change in time reflected during documentation. Example: 2 entries for vital signs may be charted for 0200 hrs.
[2024-06-25] MEDS: ALPRAZolam (*CRX) 0.5 MG TABLET 2 MG PO (05:48)
[2024-06-25] MEDS: ACETAMINOPHEN 325 MG TABLET 650 MG PO (05:49)
[2024-06-25 05:58] LABS: Basophils Percent Auto 0.5 % (0.2-1.2); Eosinophils Absolute Auto 0.5 K/mm3 (0-0.3); Eosinophils Percent Auto 7.1 % (0-4.4); Hematocrit 31.2 % (42.0-52.0); Hemoglobin 9.9 g/dL (14.0-18.0); Immature Granulocyte Absolute 0.02 K/mm3 (0.00-0.031); Immature Granulocyte Percent A 0.3 % (0-0.5); Lymphocytes Absolute Auto 0.43 K/mm3 (0.9-3.2); Lymphocytes Percent Auto 6.6 % (18.3-44.2); Mean Corpuscular HGB Conc 31.7 g/dl (32-36); Mean Corpuscular Hemoglobin 27.5 pg (26-34); Mean Corpuscular Volume 86.7 fl (80-100); Monocytes Absolute Auto 0.4 K/mm3 (0.1-0.6); Monocytes Percent Auto 6.6 % (2.6-8.5); Neutrophils Absolute Auto 5.1 K/mm3 (1.3-6.7); Neutrophils Percent Auto 78.9 % (45.5-73.1); Platelet Count Result 249 k/mm3 (150-375); Red Cell Distribution Width 15.1 % (11.5-14.5); White Blood Count 6.5 K/mm3 (4.5-10.0)
[2024-06-25 06:10] LABS: Anion Gap 15 mmol/L (4-12); Blood Urea Nitrogen 31 mg/dL (9-20); Calcium 8.5 mg/dL (8.4-10.2); Carbon Dioxide 15 mmol/L (22-30); Chloride 107 mmol/L (98-107); Estimated CRCL calculation 22 ml/min; Estimated Glomerular Filt Rate 29; Glucose 144 mg/dL (65-110); Potassium 3.9 mmol/L (3.4-5.0); Sodium 137 mmol/L (137-145)
[2024-06-25 06:50] VITALS: BP 151/97; PULSE 71; RESP 18; TEMP 36.6; O2SAT 97
--- NOTE | 2024-06-25 07:47 | P.PNIM_ITS ---
Progress Note: A&P Assessment and Plan (1) Subcapital fracture of right femur: Qualifiers: Encounter type: initial encounter Fracture type: closed Qualified Code(s): S72.011A - Unspecified intracapsular fracture of right femur, initial encounter for closed fracture Code(s): S72.011A - Unspecified intracapsular fracture of right femur, initial encounter for closed fracture Status: Acute Assessment and Plan: - fall precautions - trauma workup significant for a subcapital fracture of the right femoral neck. Head CT, C-spine CT, and CXR unremarkable for traumatic findings. - POD 3 from ORIF with pinning of right hip - analgesics p.r.n. - care coordination consulted for discharge planning - regular diet - PT/OT eval and treat post surgical management. Activity up with assistance, up to chair. Toe touch weight bearing - Xarelto started by ortho, SCD, EDIS khan (2) Pneumonia: Qualifiers: Laterality: bilateral Lung location: unspecified part of lung Pneumonia type: due to unspecified organism Qualified Code(s): J18.9 - Pneumonia, unspecified organism Code(s): J18.9 - Pneumonia, unspecified organism Status: Acute Assessment and Plan: - CXR: mild interstitial and airspace opacities in the bilateral mid and lower lung zones which could represent mild pulmonary edema or pneumonia. - BNP elevated. daughter suspects he recently had an echo at [facility] which was unremarkable prior to his recent back surgery, requesting. - risk factors: recent surgery and hospitalization - started on CAP tx: ceftriaxone and azithromycin on 06/21 - WBC 10.7 on admission, WBC 6.4 today - MRSA and Viral PCR - no current supplemental O2 need -added procalcitonin, 2.1. -Ordered U/A as well. UA was unable to be obtained. He is now been on antibiotics for 24 hours with Rocephin, Ancef, and azithromycin. Rocephin should cover most bacteria. Will cancel UA now. (3) Insulin dependent diabetes mellitus: Status: Chronic Assessment and Plan: - hypoglycemia protocol - POC blood glucose ACHS - home medication: Levemir 5 units HS - correct regimen ordered - low dose TIDWM, based off BMI - A1C 6.8% - fasting glucose 119 (4) Chronic kidney disease: Qualifiers: Chronic kidney disease stage: stage 3 (moderate) Chronic kidney disease stage 3 subtype: unspecified whether 3a or 3b Qualified Code(s): N18.30 - Chronic kidney disease, stage 3 unspecified Code(s): N18.9 - Chronic kidney disease, unspecified Status: Acute Assessment and Plan: - creatinine 2.8 and GFR 22, previously 2.8 and GFR 22 on 05/22/2024 - hx of CKD stage 3 - trend renal function - trend electrolytes, correct as needed - NS decreased to 75 ml per hour, can d/c when taking good PO - Cr 2.8-->3.0-->2.8--> 2.6-->2.20 - metabolic acidosis with AG on labs. Started bicarb 650 mg PO BID. (5) Hypertension: Qualifiers: Hypertension type: unspecified Qualified Code(s): I10 - Essential (primary) hypertension Code(s): I10 - Essential (primary) hypertension Status: Acute Assessment and Plan: - chronic, currently 165/125 mmhg - home medications: Metoprolol ER 25 mg daily - prn hydralazine for SBP > 180 mm hg, DBP > 110 mm hg - Blood pressures have improved with stopping fluids Plan Diet: diabetic diet GI Prophylaxis: Not currently indicated DVT Prophylaxis: SCDs Lines: Peripheral Code Status: Full code Subjective Date/time seen: 06/25/24 07:47 Interval history: No acute events overnight. Patient is a little tired today not want to interact much. He has the blankets over said whenever I visit. He has no complaints. Blood pressures are improved Review of Systems Review of Systems: All systems reviewed & are unremarkable except as noted in HPI and below Exam Narrative: General: appears comfortable, in no acute distress, elderly, frail Respiratory: breathing is unlabored with even chest rise/fall, lungs are clear and diminished without wheezing, rhonchi, and crackles Cardiovascular: Rate and rhythm regular, normal s1s2, no murmur Abdomen: Soft, round, non-tender, active bowel sounds Extremities: No cyanosis, edema, clubbing. Pulses 2/2 Neuro: A&O x 4 Skin: Warm, dry, intact. Pale, right lateral hip incision covered with dry dressing and tape which is clean dry and intact. Objective Data Vital Signs Vital Signs: Vital Signs - 24 hr 06/24/24 16:00 06/24/24 21:54 06/24/24 22:01 Temperature 96.7 F L 97.9 F Pulse Rate 89 87 Respiratory Rate 18 18 Blood Pressure 180/105 H 185/99 H 156/89 H Pulse Oximetry 96 98 Oxygen Delivery 06/24/24 20:16 06/25/24 06:50 Temperature 97.9 F Pulse Rate 71 Respiratory Rate 18 Blood Pressure 151/97 H Pulse Oximetry 97 Oxygen Delivery Room Air Intake/Output Intake/Output: Intake & Output 06/22/24 06/23/24 06/24/24 06/25/24 23:59 23:59 23:59 22:59 Intake Total 2459 1950.0 2460 Output Total 366 269 8429 1450 Balance 2059 1475.0 1360 -1450 Meds/Results Medications: Active Medications Generic Name Dose Route Start Last Admin Trade Name Freq PRN Reason Stop Dose Admin Acetaminophen 650 mg 06/23/24 17:00 06/25/24 05:49 Acetaminophen 325 Mg Tablet PO 650 mg Q6HR ROBY Administration Hydrocodone Bitart/Acetaminophen 1 tab 06/21/24 14:36 Hydrocodone/Acetaminophen (*Crx) 5-325 Mg Tablet PO Q6H PRN Pain Rated 4-6 Hydrocodone Bitart/Acetaminophen 1 tab 06/22/24 14:44 Hydrocodone/Acetaminophen (*Crx) 5-325 Mg Tablet PO Q4H PRN Pain Rated 4-6 Hydrocodone Bitart/Acetaminophen 1 tab 06/22/24 14:44 06/23/24 04:21 Hydrocodone/Acetaminophen (*Crx) 7.5-325 Mg Tablet PO 1 tab Q4H PRN Administration Pain Rated 7-10 Alprazolam 2 mg 06/25/24 04:51 06/25/24 05:48 Alprazolam (*Crx) 0.5 Mg Tablet PO 2 mg DAILY PRN Administration Anxiety Celecoxib 200 mg 06/23/24 08:00 06/24/24 08:16 Celecoxib 200 Mg Capsule PO 200 mg DAILY@0800 ROBY Administration Dextrose 12.5 gm 06/21/24 14:38 Dextrose 50% 25 Gm/50 Ml Syringe IV PUSH PRN PRN Hypoglycemia Protocol Docusate Sodium 100 mg 06/21/24 14:37 Docusate Sodium 100 Mg Capsule PO Q12H PRN Constipation Famotidine 20 mg 06/22/24 09:00 06/24/24 08:16 Famotidine 20 Mg Tablet PO 20 mg DAILY ROBY Administration Fentanyl Citrate 25 mcg 06/22/24 12:45 Fentanyl Citrate Inj (*Crx) 100 Mcg/2 Ml Vial IV PUSH Q2M PRN Pain Fluoxetine HCl 40 mg 06/22/24 09:00 06/24/24 08:15 Fluoxetine Hcl 20 Mg Capsule PO 40 mg DAILY ROBY Administration Glucagon 1 mg 06/21/24 14:38 Glucagon For Inj 1 Mg Vial IM PRN PRN Hypoglycemia Protocol Glucose 15 gm 06/21/24 14:38 Glucose Oral Gel 15 Gm Of Glucse In 37.5 Gm Tube PO PRN PRN Hypoglycemia Protocol Guaifenesin 600 mg 06/22/24 21:00 06/24/24 20:43 Guaifenesin 12 Hr 600 Mg Tabcr PO 600 mg Q12HR ROBY Administration Hydralazine HCl 10 mg 06/24/24 18:32 06/24/24 20:43 Hydralazine Hcl 20 Mg/Ml Vial IV PUSH 10 mg Q6H PRN Administration Blood Pressure - High Hydromorphone HCl 1 mg 06/22/24 14:44 06/23/24 21:02 Hydromorphone Hcl Inj (*Crx) 1 Mg/Ml Syr IV PUSH 1 mg Q2H PRN Administration Breakthrough Pain Rated 7-10 or NPO Hydromorphone HCl 0.5 mg 06/22/24 14:44 Hydromorphone Hcl Inj (*Crx) 1 Mg/Ml Syr IV PUSH Q2H PRN Breakthrough Pain Rated 4-6 or NPO Hydroxyzine Pamoate 50 mg 06/22/24 14:44 Hydroxyzine Pamoate 25 Mg Capsule PO Q4H PRN Itching Dextrose 1,000 mls @ 100 mls/hr 06/21/24 14:38 Dextrose 5% 1,000 Ml IVPB PRN PRN Hypoglycemia Protocol Ceftriaxone Sodium 1 gm in 50 mls @ 100 mls/hr 06/21/24 15:00 06/24/24 14:50 Rocephin 1 Gm/Ns 50 Ml IVPB Infused Q24H ROBY Infusion Azithromycin 500 mg in 250 mls @ 250 mls/hr 06/21/24 16:00 06/24/24 15:22 Zithromax IVPB Infused Q24H ROBY Infusion Ibuprofen 800 mg in 200 mls @ 400 mls/hr 06/22/24 14:44 Caldolor 800 Mg/200 Ml IVPB Q6H PRN Breakthrough Pain Rated 1-3 or NPO Insulin Aspart 2 - 5 units 06/21/24 17:00 06/24/24 17:27 Insulin Aspart (*Bkc) 100 Units/Ml SUB-Q Not Given TIDWM [facility] Protocol Insulin Glargine 5 units 06/21/24 21:00 06/24/24 20:42 Insulin Glargine (*Bkc) 100 Units/Ml SUB-Q 5 units HS [facility] Administration Metoprolol Succinate 25 mg 06/22/24 09:00 06/24/24 08:16 Metoprolol Succinate Ext Rel 25 Mg Tabcr PO 25 mg QAM [facility] Administration Morphine Sulfate 2 mg 06/21/24 14:10 06/22/24 08:15 Morphine Sulfate (*Crx) 2 Mg/Ml Inj IV PUSH 2 mg Q2H PRN Administration Pain Rated 7-10 Naloxone HCl 0.1 mg 06/22/24 14:44 Naloxone Hcl 0.4 Mg/Ml Vial IV PUSH Q2M PRN Opiate Reversal Ondansetron HCl 4 mg 06/21/24 14:37 Ondansetron Inj 4 Mg/2 Ml Vial IV PUSH Q6H PRN Nausea And Vomiting Ondansetron HCl 4 mg 06/22/24 12:45 Ondansetron Inj 4 Mg/2 Ml Vial IV PUSH ONCE PRN Nausea Ondansetron HCl 4 mg 06/22/24 14:44 Ondansetron Inj 4 Mg/2 Ml Vial IV PUSH Q4H PRN Nausea And Vomiting Polyethylene Glycol 17 gm 06/23/24 09:00 06/24/24 08:02 Polyethylene Glycol 3350 17 Gm Powd.Pack PO Not Given QAM [facility] Rivaroxaban 10 mg 06/22/24 17:00 06/24/24 17:02 Rivaroxaban 10 Mg Tablet PO 10 mg DAILY@17 [facility] Administration Senna/Docusate Sodium 2 tab 06/22/24 17:00 06/24/24 08:04 Senna/Docusate Sodium Tablet PO Not Given BID [facility] Tamsulosin HCl 0.4 mg 06/22/24 09:00 06/24/24 08:16 Tamsulosin Hcl 0.4 Mg Capsule PO 0.4 mg DAILY [facility] Administration Tramadol HCl 50 mg 06/22/24 14:44 Tramadol Hcl (*Crx) 50 Mg Tablet PO Q4H PRN Pain Rated 1-3 Radiology Results: ITS Impressions Head CT 06/21/24 12:56 IMPRESSION: No acute intracranial findings. Cervical Spine CT 06/21/24 12:57 IMPRESSION: 1. No fracture. 2. Moderate cervical spondylosis. Chest X-Ray 06/21/24 13:02 IMPRESSION: 1. Mild interstitial and airspace opacities in the bilateral mid and lower lung zones which could represent mild pulmonary edema or pneumonia. Hip/Pelvis X-Ray 06/21/24 13:03 IMPRESSION: 1. Subcapital fracture of right femoral neck. 2. Mild right hip osteoarthritis. 3. Bipolar left hip arthroplasty in near-anatomic alignment. Intraoperative X-Ray 06/22/24 15:27 IMPRESSION: 1. Fluoroscopy utilized during lag screw fixation of an impacted subcapital fracture of the proximal femur in unchanged alignment. See procedure note for further detail. Labs Labs: Laboratory Results - last 24 hr 06/24/24 06/24/24 06/24/24 08:14 16:36 20:33 WBC RBC Hgb Hct MCV MCH MCHC RDW Plt Count MPV Immature Gran % (Auto) Neut % (Auto) Lymph % (Auto) Moody % (Auto) Eos % (Auto) Baso % (Auto) Lymph # (Auto) Moody # (Auto) Eos # (Auto) Baso # (Auto) Abs Immat Gran (auto) Absolute Neuts (auto) Absolute Nucleated RBC Nucleated RBC % Sodium Potassium Chloride Carbon Dioxide Anion Gap BUN Creatinine Estim Creat Clear Calc Estimated GFR Glucose POC Capillary Glucose 119 H 163 H 154 H Calcium Magnesium 06/25/24 05:45 WBC 6.5 RBC 3.60 L Hgb 9.9 L Hct 31.2 L MCV 86.7 MCH 27.5 MCHC 31.7 L RDW 15.1 H Plt Count 249 MPV 10.0 Immature Gran % (Auto) 0.3 Neut % (Auto) 78.9 H Lymph % (Auto) 6.6 L Moody % (Auto) 6.6 Eos % (Auto) 7.1 H Baso % (Auto) 0.5 Lymph # (Auto) 0.43 L Moody # (Auto) 0.4 Eos # (Auto) 0.5 H Baso # (Auto) 0.0 Abs Immat Gran (auto) 0.02 Absolute Neuts (auto) 5.1 Absolute Nucleated RBC 0.000 Nucleated RBC % 0.0 Sodium 137 Potassium 3.9 Chloride 107 Carbon Dioxide 15 L Anion Gap 15 H BUN 31 H Creatinine 2.20 H Estim Creat Clear Calc 22 Estimated GFR 29 L Glucose 144 H POC Capillary Glucose Calcium 8.5 Magnesium 2.0 Quality VTE Prophylaxis VTE prophylaxis: mechanical ordered and pharmacologic ordered
[2024-06-25 08:03] LABS: Glucose Point of Care 126 mg/dl (65-105)
[2024-06-25 09:35] VITALS: BP 172/89; PULSE 86; RESP 16; TEMP 36.4; O2SAT 100
[2024-06-25 09:44] VITALS: PULSE 86
[2024-06-25] MEDS: CELECOXIB 200 MG CAPSULE PO (09:44)
[2024-06-25] MEDS: guaiFENesin 12 HR 600 MG TABCR PO (09:44)
[2024-06-25] MEDS: FLUoxetine HCL 20 MG CAPSULE 40 MG PO (09:44)
[2024-06-25] MEDS: SENNA/DOCUSATE SODIUM TABLET 2 TAB PO (09:44)
[2024-06-25] MEDS: METOPROLOL SUCCINATE EXT REL 25 MG TABCR PO (09:44)
[2024-06-25] MEDS: TAMSULOSIN HCL 0.4 MG CAPSULE PO (09:44)
[2024-06-25] MEDS: FAMOTIDINE 20 MG TABLET PO (09:44)
[2024-06-25] MEDS: polyethylene glycoL 3350 17 GM POWD.PACK PO (09:45)
[2024-06-25] MEDS: SODIUM BICARBONATE TAB 650 MG TABLET PO (09:45)
--- NOTE | 2024-06-25 10:01 | PCOTNOTE ---
Attempted to see patient twice this am. First attempt, patient was sleeping soundly at 8:25am. Second attempt at 10 am, patient refused. As entering room patient was snoring, however easily aroused. Upon introduction, patient stated, Oh no! While covering head with covers. I didn't sleep well last night. Don't get me up! Cover me up with the blanket more. Turn off my tv. Pt rolled over in bed and remained completely covered.
[2024-06-25 12:10] LABS: Glucose Point of Care 116 mg/dl (65-105)
[2024-06-25 14:42] VITALS: BP 157/91; PULSE 74; RESP 20; TEMP 36.6; O2SAT 99
--- NOTE | 2024-06-25 14:55 | PM.DS ---
DS: Admitting Diagnosis Discharge Date 06/26 Admitting Diagnosis fall DS: Discharge Diagnosis Discharge Diagnosis (1) Subcapital fracture of right femur: Qualifiers: Encounter type: initial encounter Fracture type: closed Qualified Code(s): S72.011A - Unspecified intracapsular fracture of right femur, initial encounter for closed fracture Code(s): S72.011A - Unspecified intracapsular fracture of right femur, initial encounter for closed fracture Status: Acute Assessment and Plan: - fall precautions - trauma workup significant for a subcapital fracture of the right femoral neck. Head CT, C-spine CT, and CXR unremarkable for traumatic findings. - POD 3 from ORIF with pinning of right hip - analgesics p.r.n. - care coordination consulted for discharge planning - regular diet - PT/OT eval and treat post surgical management. Activity up with assistance, up to chair. Toe touch weight bearing - Xarelto started by ortho, SCD, EDIS khan (2) Pneumonia: Qualifiers: Laterality: bilateral Lung location: unspecified part of lung Pneumonia type: due to unspecified organism Qualified Code(s): J18.9 - Pneumonia, unspecified organism Code(s): J18.9 - Pneumonia, unspecified organism Status: Acute Assessment and Plan: - CXR: mild interstitial and airspace opacities in the bilateral mid and lower lung zones which could represent mild pulmonary edema or pneumonia. - BNP elevated. daughter suspects he recently had an echo at [facility] which was unremarkable prior to his recent back surgery, requesting. - risk factors: recent surgery and hospitalization - started on CAP tx: ceftriaxone and azithromycin on 06/21 - WBC 10.7 on admission, WBC 6.4 today - MRSA and Viral PCR - no current supplemental O2 need -added procalcitonin, 2.1. -Ordered U/A as well. UA was unable to be obtained. He is now been on antibiotics for 24 hours with Rocephin, Ancef, and azithromycin. Rocephin should cover most bacteria. Will cancel UA now. (3) Insulin dependent diabetes mellitus: Status: Chronic Assessment and Plan: - hypoglycemia protocol - POC blood glucose ACHS - home medication: Levemir 5 units HS - correct regimen ordered - low dose TIDWM, based off BMI - A1C 6.8% - fasting glucose 119 (4) Chronic kidney disease: Qualifiers: Chronic kidney disease stage: stage 3 (moderate) Chronic kidney disease stage 3 subtype: unspecified whether 3a or 3b Qualified Code(s): N18.30 - Chronic kidney disease, stage 3 unspecified Code(s): N18.9 - Chronic kidney disease, unspecified Status: Acute Assessment and Plan: - creatinine 2.8 and GFR 22, previously 2.8 and GFR 22 on 05/22/2024 - hx of CKD stage 3 - trend renal function - trend electrolytes, correct as needed - NS decreased to 75 ml per hour, can d/c when taking good PO - Cr 2.8-->3.0-->2.8--> 2.6-->2.20 - metabolic acidosis with AG on labs. Started bicarb 650 mg PO BID. (5) Hypertension: Qualifiers: Hypertension type: unspecified Qualified Code(s): I10 - Essential (primary) hypertension Code(s): I10 - Essential (primary) hypertension Status: Acute Assessment and Plan: - chronic, currently 165/125 mmhg - home medications: Metoprolol ER 25 mg daily - prn hydralazine for SBP > 180 mm hg, DBP > 110 mm hg - Blood pressures have improved with stopping fluids Plan Diet: diabetic diet GI Prophylaxis: Not currently indicated DVT Prophylaxis: SCDs Lines: Peripheral Code Status: Full code DS: Summary Hospital Course Reason for hospitalization: fall, right subcapital fracture of right femoral neck Hospital Course: 83 y/o M presents here with fall with PMH of anemia of chronic disease, anxiety, BPH, CVA (2018), on chronic anticoagulation, CKD stage 3, dementia, HLD, HTN, DM, paroxysmal atrial fibrillation, lung cancer s/p radiation, and history of subdural hematoma. The patient presents here from home for further evaluation after a ground level fall that occurred at 12:30 a.m. last night. Patient was getting up to use the restroom when he lost his balance and fell onto his right hip. Did have a head strike without loss of consciousness. Post fall the patient is reporting right hip pain. Daughter did active and passive range of motion with both lower extremities. Patient reported more pain in the right with ROM. Patient then went back to sleep and woke again this morning. He was trying to use a urinal and had moved his legs over the side of the bed when he slipped from the bed onto his bottom. Patient did not have increased pain to the right hip and was again able to do passive/active ROM. However, when he woke this morning the right hip pain continued to be severe which prompted he and his daughter to go the ER. The patient is on Eliquis. He currently lives at home with his daughter. Endorses mild cough a few days ago, has since resolved. Denies fever, shortness of breath, weakness, chills, or bilateral lower extremity swelling. Initial VS at presentation: 97.9? F, HR 102, RR 14, 134/87, and 92-95% on RA. ED workup showed: WBC 10.7, hemoglobin 10.6 (previously 11.6 on 05/22/2024), INR 1.3, sodium 132, creatinine 2.8 (previously 2.8 on 05/22/2024), glucose 134, calcium 8.3. Head CT showed no acute intracranial findings. C-spine CT showed no fracture and moderate cervical spondylosis. CXR showed mild interstitial and airspace opacities in bilateral mid and lower lung zones which could represent mild pulmonary edema or pneumonia. Hip/pelvis XR showed subcapital fracture of the right femoral neck, mild right hip osteoarthritis, bipolar left hip arthroplasty in near anatomic alignment. Patient underwent ORIF with pinning to right hip. Postoperatively he did well. He worked with PT and OT. SNF was recommended at discharge. He did have some hypertensive episodes related to IV fluids. Fluids were stopped as blood pressures improved. He was also treated for community-acquired pneumonia suspected on admission. He discharged to SNF in stable condition with recommend orthopedic follow-up. Time Spent with Patient Time attestation: Total time spent providing and/or coordinating discharge services: 70 Exam Narrative: General: appears comfortable, in no acute distress, elderly, frail Respiratory: breathing is unlabored with even chest rise/fall, lungs are clear and diminished without wheezing, rhonchi, and crackles Cardiovascular: Rate and rhythm regular, normal s1s2, no murmur Abdomen: Soft, round, non-tender, active bowel sounds Extremities: No cyanosis, edema, clubbing. Pulses 2/2 Neuro: A&O x 4 Skin: Warm, dry, intact. Pale, right lateral hip incision covered with dry dressing and tape which is clean dry and intact. DS: Data Data Completed and Pending Labs on day of discharge: Labs from last 24 hours 06/25/24 06/25/24 06/25/24 12:07 07:56 05:45 WBC 6.5 RBC 3.60 L Hgb 9.9 L Hct 31.2 L MCV 86.7 MCH 27.5 MCHC 31.7 L RDW 15.1 H Plt Count 249 MPV 10.0 Immature Gran % (Auto) 0.3 Neut % (Auto) 78.9 H Lymph % (Auto) 6.6 L Fisher % (Auto) 6.6 Eos % (Auto) 7.1 H Baso % (Auto) 0.5 Lymph # (Auto) 0.43 L Fisher # (Auto) 0.4 Eos # (Auto) 0.5 H Baso # (Auto) 0.0 Abs Immat Gran (auto) 0.02 Absolute Neuts (auto) 5.1 Absolute Nucleated RBC 0.000 Nucleated RBC % 0.0 Sodium 137 Potassium 3.9 Chloride 107 Carbon Dioxide 15 L Anion Gap 15 H BUN 31 H Creatinine 2.20 H Estim Creat Clear Calc 22 Estimated GFR 29 L Glucose 144 H POC Capillary Glucose 116 H 126 H Calcium 8.5 Magnesium 2.0 06/24/24 06/24/24 20:33 16:36 WBC RBC Hgb Hct MCV MCH MCHC RDW Plt Count MPV Immature Gran % (Auto) Neut % (Auto) Lymph % (Auto) Fisher % (Auto) Eos % (Auto) Baso % (Auto) Lymph # (Auto) Fisher # (Auto) Eos # (Auto) Baso # (Auto) Abs Immat Gran (auto) Absolute Neuts (auto) Absolute Nucleated RBC Nucleated RBC % Sodium Potassium Chloride Carbon Dioxide Anion Gap BUN Creatinine Estim Creat Clear Calc Estimated GFR Glucose POC Capillary Glucose 154 H 163 H Calcium Magnesium Preliminary micro results at discharge 06/21/24 16:01 Blood Culture - Preliminary Blood 06/21/24 16:01 Blood Culture - Preliminary Blood Discharge Plan Discharge Attending physician on discharge: Fidelia Wang Consulting providers: Jovan Rueda; Karla Chan Discharging Clinician: Karla Chan Anticipated Discharge Date/Time: 06/25/24 14:30 Patient Disposition: SNF Activity: december shower Diet: regular Discharge Instructions: You were admitted after falling and suffering a right hip fracture. Dr Rueda repaired your hip with a pin. You are stable to discharge today to SNF. You should continue on your normal Eliquis 5 mg BID. You should be toe touch weight bearing with a walker at all times. You should have repeat blood work in 1 week to monitor your hemoglobin and kidney function. Please call Dr Rueda's office to schedule a follow up appointment. There were concerns that you also had a pneumonia on your x-ray when you presented. We have been treating you with antibiotics for a possible pneumonia. Please continue to take the rest of the medications until you have completed them. Please monitor for signs and symptoms of infection with increased redness, warmth, and drainage. If you develop fever greater than 101.4, shortness of breath, or chest pain please return to be evaluated. Patient Instructions: Apixaban (By mouth), Heart Failure (GEN), Community Acquired Pneumonia (DC), Hip Fracture (GEN) Stand Alone Forms: General Discharge Information Follow-up/Referrals: Jovan Rueda MD [Physician] - Malik Mathew MD [Primary Care Provider] - Discharge Medications: New hydrocodone-acetaminophen 10-325 mg tablet 1 tablet PO Q6H PRN (Reason: pain) Qty: 1 0RF alprazolam 2 mg tablet,disintegrating 2 mg PO DAILY PRN (Reason: anxiety) Qty: 1 0RF sennosides-docusate sodium [Senokot-S] 8.6-50 mg Tablet 2 tab PO BID Qty: 60 0RF sodium bicarbonate 650 mg Tablet 650 mg PO BID Qty: 60 0RF docusate sodium 100 mg Capsule 100 mg PO Q12H PRN (Reason: Constipation) Qty: 60 0RF azithromycin 500 mg tablet 500 mg PO DAILY Qty: 1 0RF Rx Instructions: take 06/26 amoxicillin-pot clavulanate 500-125 mg tablet 1 tablet PO Q12H Qty: 2 0RF Rx Instructions: start 06/26 Continued tamsulosin 0.4 mg capsule 0.4 mg PO DAILY ibuprofen 600 mg Tablet 600 mg PO TID PRN (Reason: Pain) acetaminophen 325 mg Capsule 650 mg PO BID PRN (Reason: Pain) Eliquis 2.5 mg Tablet 5 mg PO BID metoprolol succinate 25 mg tablet extended release 24 hr 25 mg PO QAM fluoxetine 40 mg capsule 40 mg PO DAILY famotidine 20 mg tablet 20 mg PO DAILY Levemir FlexPen 100 unit/mL (3 mL) insulin pen 5 unit SUBCUT HS Qty: 15 0RF Discontinued alprazolam 2 mg Tablet 2 mg PO DAILY PRN (Reason: Anxiety) hydrocodone-acetaminophen 10-325 mg tablet 1 tablet PO TID Other Ambulatory Orders: Basic Metabolic Panel (Routine) Timeframe: 1 Week Location: Determined by Patient Ordered By: Karla Chan Complete Blood Count with Diff (DAILY) Timeframe: [id number] Location: Determined by Patient Ordered By: Karla Chan Date of admission: 06/21/24 14:57 Primary Care Provider: Malik Mathew Admitting Provider: Reginald Hernández Attending physician on admission: Karla Chan Condition: Improved Quality VTE Prophylaxis VTE prophylaxis: mechanical ordered and pharmacologic ordered Hospitalist MIPS Heart Failure (Exclusion) Patient has history of Heart Transplant or Left Ventricular Assistive Device?: No IF YES, STOP HERE Heart Failure (Qualifier) Patient has current or prior documentation of LVEF less than or equal to 40%, or mod/servere depressed LVSF?: No IF NO, STOP HERE
== END 2024-06-25 16:18 | DRG 480 ==
LOC: ANHED 14:03 → ANH3MEDSUR 14:54 → ANH2MED 15:04
PROVIDERS: Orthopaedic Surgery; Student in an Organized Health Care Education/Training Program; Admitting Provider Hospitalist; Emergency Provider Emergency Medicine; PCP Internal Medicine Hematology & Oncology; Visit Provider Nurse Practitioner Acute Care
PROC: 0QS604Z Reposition Right Upper Femur with Internal Fixation Device, Open Approach (ICD-10-PCS; principal; 2024-06-22 13:00)
DX: S72.011A Unspecified intracapsular fracture of right femur, initial encounter for closed fracture (principal); J18.9 Pneumonia, unspecified organism; W18.39XA Other fall on same level, initial encounter; Z20.822 Contact with and (suspected) exposure to COVID-19; E11.22 Type 2 diabetes mellitus with diabetic chronic kidney disease; I12.9 Hypertensive chronic kidney disease with stage 1 through stage 4 chronic kidney disease, or unspecified chronic kidney disease; N18.30 Chronic kidney disease, stage 3 unspecified; N40.0 Benign prostatic hyperplasia without lower urinary tract symptoms; F03.90 Unspecified dementia, unspecified severity, without behavioral disturbance, psychotic disturbance, mood disturbance, and anxiety; I48.0 Paroxysmal atrial fibrillation; E78.5 Hyperlipidemia, unspecified; D63.8 Anemia in other chronic diseases classified elsewhere; F41.9 Anxiety disorder, unspecified; Z79.01 Long term (current) use of anticoagulants; Z85.118 Personal history of other malignant neoplasm of bronchus and lung; Z87.891 Personal history of nicotine dependence
CPT/HCPCS: 36415; 70450; 71045; 72125; 73502; 80048; 80053; 82607; 82728; 82746; 82948; 83036; 83540; 83550; 83605; 83735; 83880; 84145; 85025; 85610; 85730; 87040; 87637; 87641; 93005; 96374; 97110; 97161; 97165; 97530; 99199; 99285; A9270; C1713; C1769; G0378; J0360; J0456; J0690; J0696; J1171; J1815; J2270; J3010; J7030; J7120

== ENCOUNTER 2024-08-21 11:01 | Outpatient (CLI) | payer MEDICARE, MEDICAID, SELFPAY ==
--- NOTE | ~2024-08-21 | CT_ITS ---
Clinical Indication: Lung cancer CT Scan of the Chest with Contrast: Technique: Contiguous sections were acquired throughout the chest after intravenous administration of 75 cc of Omnipaque 350. Dose reduction technique was used on this scan by utilizing automated exposu re control and iterative reconstruction technique. The dose-length product (DLP) was 211.32 mGy-cm. COMPARISON: 05/17/2024 Findings: There is no evidence of any significant mediastinal, hilar or axillary lymphadenopathy. There is no f illing defect in the pulmonary arterial tree to suggest pulmonary embolus. There is no evidence of ao rtic dissection or aneurysm. There is no evidence of pleural or pericardial effusion. There is much more extensive peripheral consolidation with air bronchograms the right upper lobe with minimal involvement in the peripheral aspect of the superior segment right lower lobe. Images through the upper abdomen reveal small gallstones. There are mild compression fractures of T11 and T12. There is vertebroplasty at L1 with underlying compression fracture. Impression: Much more extensive consolidation peripherally in the right lung, as above, suggestive of postradiati on change. T11 and T12 compression fractures. Prior L1 vertebroplasty. Reviewed, dictated and finalized at [facility]. [employer] Impression: Much more extensive consolidation peripherally in the right lung, as above, sug gestive of postradiation change. T11 and T12 compression fractures. Prior L1 vertebroplasty.
[2024-08-21 11:42] LABS: Estimated Glomerular Filt Rate 30
== END 2024-08-21 11:02 | disposition home or self-care (01) ==
PROVIDERS: PCP Family Medicine; Visit Provider Internal Medicine Hematology & Oncology
DX: C34.11 Malignant neoplasm of upper lobe, right bronchus or lung (principal); S22.080A Wedge compression fracture of T11-T12 vertebra, initial encounter for closed fracture; X58.XXXA Exposure to other specified factors, initial encounter
CPT/HCPCS: 71260; Q9967

== ENCOUNTER 2024-09-04 15:25 | Inpatient (IN) | payer MEDICARE, MEDICAID, SELFPAY ==
--- NOTE | ~2024-09-04 | XR_ITS ---
EXAMINATION: XR chest 2V DATE: 09/04/2024 16:07 INDICATION: Weakness. TECHNIQUE: Frontal and lateral views of the chest were obtained on 3 radiographs. COMPARISON: Chest single view 06/21/2024, chest CT 08/21/2024 FINDINGS: There are airspace opacities in right midlung zone. Calcified pulmonary nodules are consist ent with old granulomatous disease. No pleural effusion or pneumothorax. The heart size is normal. Th ere are multiple chronic vertebral body fractures. There are changes of vertebroplasty at L1. IMPRESSION: 1. Worsened airspace opacities in right midlung zone, likely changes of radiation therapy. Reviewed, dictated and finalized at location A. CE INSPECTOR IMPRESSION: 1. Worsened airspace opacities in right midlung zone, likely changes of radiati on therapy.
--- NOTE | ~2024-09-04 | CT_ITS ---
EXAMINATION: CT brain wo con DATE: 09/04/2024 15:56 INDICATION: Fall. TECHNIQUE: Computed tomography (CT) of the head was performed without intravenous contrast. The mA wa s adjusted according to patient size. Iterative reconstruction technique was employed. The dose-lengt h product was 681.00 mGy-cm. COMPARISON: Head CT 06/21/2024 FINDINGS: There is an old infarct in the right basal ganglia. There are old infarcts in the left cere bellum. There are scattered areas of low attenuation in the cerebral white matter. There is an old in farct in the right parietal lobe. There is no intracranial hemorrhage, acute infarction, or abnormal intracranial mass lesion. The ventricles are normal in size. There is mild mucosal thickening in the paranasal sinuses. There are likely changes of ocular lens replacement surgeries. There is a right op tic nerve drusen. The mastoid air cells are normal. IMPRESSION: 1. 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 2. Stable moderate nonspecific cerebral white matter disease, which likely represents chronic small v essel ischemic disease. Reviewed, dictated and finalized at location A. ESTANT COORDINATOR IMPRESSION: 1. Old infarcts in the right basal ganglia, right parietal lobe, and left cereb ellum. 2. Stable moderate nonspecific cerebral white matter disease, which likely repr esents chronic small vessel ischemic disease.
[2024-09-04 15:30] VITALS: BP 149/90; PULSE 75; RESP 16; TEMP 36.1; O2SAT 100
--- NOTE | 2024-09-04 15:34 | ED_ITS ---
HPI - Weakness General Chief complaint: Weakness <APRIL Villafuerte Last Filed: 09/04/24 15:57> Stated complaint: sent by PCP, weakness, freq falls <APRIL Villafuerte Last Filed: 09/04/24 15:57> Time Seen by Provider: 09/04/24 15:34 <APRIL Villafuerte Last Filed: 09/04/24 15:57> Focused HPI: with PMH of dementia, CVA, DM, who presents to the ED with c/o weakness and multiple falls. Daughter/POA at bedside assisted in providing information. States over past 2 weeks - 1month, patient has had increased weakness, unsteady gait, frequent falls. Patient states his legs just give out on him. Denies any signficant injury from the recent falls. Unknown HI. Patient is on eliquis. Hx of AFIB. Denies any other complaints. Has previously been admitted to [facility] for rehab/PT and did very well with this. GENERAL: Elderly, frail/thin, and in no acute distress. HEAD: Normocephalic, atraumatic. CHEST: Clear to auscultation. ?No respiratory distress. HEART: Regular rate and rhythm.? NEURO: ?Alert and oriented x3. No appreciable focal deficits. Patient screened in triage and initial orders placed.? ?Additional care and disposition to be based upon?diagnostic testing and treatment. <APRIL Villafuerte Last Filed: 09/04/24 15:57> Focused HPI: with PMH of dementia, CVA, DM, who presents to the ED with c/o weakness and multiple falls. Daughter/POA at bedside assisted in providing information. States over past 2 weeks - 1month, patient has had increased weakness, unsteady gait, frequent falls. Patient states his legs just give out on him. Denies any significant injury from the recent falls. Unknown HI. Patient is on eliquis. Hx of AFIB. Denies any other complaints. Has previously been admitted to [facility] for rehab/PT and did very well with this. GENERAL: Elderly, frail/thin, and in no acute distress. HEAD: Normocephalic, atraumatic. CHEST: Clear to auscultation. ?No respiratory distress. HEART: Regular rate and rhythm.? NEURO: ?Alert and oriented x3. No appreciable focal deficits. Patient screened in triage and initial orders placed.? ?Additional care and disposition to be based upon?diagnostic testing and treatment. Agree with triage assessment. Daughter states that he lives at home with her and despite her safety proving her home for him he still continues to fall. Patient does have a history of dementia and daughter states that she always tells him not to get up without her being around and if he needs anything to notify rather than get up on his own but patient either does not listen to her or remembers secondary to his dementia and continues to get up on his own which causes him to fall. Daughter states that he does have physical therapy that comes and works with him twice a week but feels as though he needs more physical therapy to get him stronger before he can return home. <Ros Ng MD - Last Filed: 09/04/24 22:45> Source: patient and family <Carly Plaza PA-C - Last Filed: 09/04/24 15:57> Mode of arrival: ambulatory <Carly Plaza PA-C - Last Filed: 09/04/24 15:57> Limitations: no limitations <Carly Plaza PA-C - Last Filed: 09/04/24 15:57> Related Data Home medications: Home Medications ?Medication ?Instructions ?Recorded ?Confirmed ?Last Taken ?Type tamsulosin 0.4 mg capsule 0.4 mg PO DAILY 06/18/22 07/18/24 12/17/23 History famotidine 20 mg tablet 20 mg PO DAILY 11/04/23 07/18/24 11/02/22 07:28 History acetaminophen 325 mg capsule 650 mg PO BID PRN Pain 01/28/24 07/18/24 Unknown History apixaban 2.5 mg tablet (Eliquis) 5 mg PO BID 01/28/24 07/18/24 Unknown History ibuprofen 600 mg tablet 600 mg PO TID PRN Pain 01/28/24 07/18/24 Unknown History metoprolol succinate 25 mg 25 mg PO QAM 01/28/24 07/18/24 Unknown History tablet,extended release 24 hr fluoxetine 40 mg capsule 40 mg PO DAILY 06/21/24 07/18/24 Unknown History <Carly Plaza PA-C - Last Filed: 09/04/24 15:57> Allergies/Adverse reactions: Allergies Allergy/AdvReac Type Severity Reaction Status Date / Time No Known Allergies Allergy Verified 09/04/24 17:47 <Carly Plaza PA-C - Last Filed: 09/04/24 15:57> Review of Systems 2 Review of Systems: All systems are reviewed and are negative unless stated otherwise in the HPI. <Ros Ng MD - Last Filed: 09/04/24 22:45> PMFSH Past Medical History Medical History: Medical History Chronic anticoagulation Paroxysmal atrial fibrillation Benign prostatic hyperplasia Subdural hematoma Anemia of chronic disease Chronic renal failure, stage 3 (moderate) Dementia Chronic narcotic use Cerebrovascular accident (10/27/18) Anxiety Hyperlipidemia Hypertension Insulin dependent diabetes mellitus <Carly Plaza PA-C - Last Filed: 09/04/24 15:57> Surgical History Surgical History: Surgical History History of left hip hemiarthroplasty History of inguinal hernia repair History of colostomy <Carly Plaza PA-C - Last Filed: 09/04/24 15:57> Family History Family History: Family History Mother Diabetes mellitus Congestive heart failure Father Cerebrovascular accident Daughter Cancer <Carly Plaza PA-C - Last Filed: 09/04/24 15:57> Social History Social History: Social History Social History: Healthcare power of corporate associate attorney: Kelly Fernandez, daughter. Code status: Full code. Smoking packs per day: 0.5 Smoking cigarettes per day: 10.0 Years smoked: 20 Smoking pack-years: 10.00 Smoking status: Former smoker Tobacco type: cigarettes Alcohol intake: never Substance use: never Substance use type: does not use Do You Feel Safe in your Home?: Yes Lack of Transportation: No Lack of Food: Never True Current Housing: I Have Housing Concerned About Future Housing: No Difficulty Paying Gas/Electric Bills: No Difficulty Paying for Meds: No Currently Unemployed: No Education: High School Diploma/GED Difficulty w/ Childcare or Family Care: No Additional living arrangements comments: . Lives at [facility]. Had 3 children. 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 Gender identity (if verbalized by the patient): Male Spiritual care concerns: No <Carly Plaza PA-C - Last Filed: 09/04/24 15:57> Exam 2 Narrative: General: Alert, awake, afebrile, in no acute distress. HEENT: PERRL, no rhinorrhea, no post nasal drip, oropharynx clear. Neck: Trachea midline, no JVD, no lymphadenopathy. Cardiovascular: Regular rate and rhythm, no murmurs, rubs or gallops, no peripheral edema. Respiratory: Clear to auscultation bilaterally, no tachypnea, no wheezing, no rhonchi, no rubs, no respiratory distress. Abdomen: Soft, nontender, nondistended, no rebound, no guarding, no peritoneal signs. Musculoskeletal: No joint swelling or deformity, normal muscle tone. Skin: No rashes or petechia, no signs of infection. Psychiatric: Normal behavior and judgment for situation. Neurological: Alert and oriented to person and place which is baseline 2/2 hx of dementia. Follows all commands. Moving all extremities spontaneously. No focal deficits, speech is clear and fluent. <Ros Ng MD - Last Filed: 09/04/24 22:45> Course Vital Signs Vital signs: Vital Signs Temperature 97.0 F L 09/04/24 15:30 Pulse Rate 75 09/04/24 15:30 Respiratory Rate 16 09/04/24 15:30 Blood Pressure 149/90 H 09/04/24 15:30 Pulse Oximetry 100 09/04/24 15:30 Oxygen Delivery Room Air 09/04/24 15:30 Temperature 97.0 F L 09/04/24 15:30 Pulse Rate 75 09/04/24 15:30 Respiratory Rate 16 09/04/24 15:30 Blood Pressure 149/90 H 09/04/24 15:30 Pulse Oximetry 100 09/04/24 15:30 Oxygen Delivery Room Air 09/04/24 15:30 <Carly Plaza PA-C - Last Filed: 09/04/24 15:57> Vital Signs Temperature 97.0 F L 09/04/24 15:30 Pulse Rate 75 09/04/24 15:30 Respiratory Rate 16 09/04/24 15:30 Blood Pressure 149/90 H 09/04/24 15:30 Pulse Oximetry 100 09/04/24 15:30 Oxygen Delivery Room Air 09/04/24 15:30 Temperature 97.0 F L 09/04/24 15:30 Pulse Rate 75 09/04/24 15:30 Respiratory Rate 16 09/04/24 15:30 Blood Pressure 149/90 H 09/04/24 15:30 Pulse Oximetry 100 09/04/24 15:30 Oxygen Delivery Room Air 09/04/24 15:30 <Ros Ng MD - Last Filed: 09/04/24 22:45> MDM - Weakness MDM Narrative Medical decision making narrative: MSE by ABRAHAM in triage. <Carly Plaza PA-C - Last Filed: 09/04/24 15:57> MSE by ABRAHAM in triage. The patient was evaluated by myself in the emergency department. History is obtained from patient who is an independent historian along with daughter present at bedside and physical exam was performed. External medical records were reviewed at this time. IV was established and pertinent tests were ordered. EKG was obtained which revealed sinus rhythm rate of 85 beats per minute. No evidence of acute ischemia. EKG was independently interpreted by me and is currently pending official cardiology read. Laboratory results obtained revealing no acute process. Patient's creatinine noted to be 2.03 which is around patient's baseline secondary to history of chronic kidney disease. Imaging studies obtained included CXR which was independently interpreted by me revealing worsened airspace opacities in right midlung zone, likely changes of radiation therapy. CT brain without IV contrast was also obtained at this time and only interpreted by me revealin. 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 2. Stable moderate nonspecific cerebral white matter disease, which likely represents chronic small vessel ischemic disease. At this time patient was started on IV vancomycin, cefepime and azithromycin to cover him for nosocomial pneumonia. Differential diagnosis considerations include dehydration, electrolyte derangements, acute viral syndrome, infectious process such as pneumonia/UTI. Comorbidities impacting this visit include none. I have evaluated and discussed social determinants of health with the patient that could potentially impact subsequent diagnosis and treatment plans. On repeat assessment of the patient, reevaluation revealed that the patient is doing well and is in no acute distress. Patient symptoms have improved since he arrived to our emergency department. Repeat vital signs were all reviewed and noted to be stable. Differential diagnosis and treatment plan were discussed with the patient at bedside. Patient agrees with discussion and after shared medical decision making agrees with admission. All questions were answered to the patient's satisfaction. Case was discussed with the on-call hospitalist Dr. Bernal at 2220 and she accepted admission. Patient was admitted in stable condition. <Ros Ng MD - Last Filed: 09/04/24 22:45> Lab Data Result diagrams: 09/04/24 17:46 09/04/24 17:46 <Carly Plaza PA-C - Last Filed: 09/04/24 15:57> Labs: Lab Results 09/04/24 09/04/24 Range/Units 17:46 21:14 WBC 6.4 (4.5-10.0) K/mm3 RBC 4.24 L (4.6-6.20) M/mm3 Hgb 11.8 L (14.0-18.0) g/dL Hct 36.2 L (42.0-52.0) % MCV 85.4 (80-100) fl MCH 27.8 (26-34) pg MCHC 32.6 (32-36) g/dl RDW 15.8 H (11.5-14.5) % Plt Count 300 (150-375) k/mm3 MPV 9.1 (7.4-10.4) fl Immature Gran % (Auto) 0.3 (0-0.5) % Neut % (Auto) 62.5 (45.5-73.1) % Lymph % (Auto) 26.3 (18.3-44.2) % [place] % (Auto) 6.5 (2.6-8.5) % Eos % (Auto) 3.9 (0-4.4) % Baso % (Auto) 0.5 (0.2-1.2) % Lymph # (Auto) 1.69 (0.9-3.2) K/mm3 [place] # (Auto) 0.4 (0.1-0.6) K/mm3 Eos # (Auto) 0.3 (0-0.3) K/mm3 Baso # (Auto) 0.0 (0.0-0.1) K/mm3 Abs Immat Gran (auto) 0.02 (0.00-0.031) K/mm3 Absolute Neuts (auto) 4.0 (1.3-6.7) K/mm3 Absolute Nucleated RBC 0.000 (0.0-0.012) K/mm3 Nucleated RBC % 0.0 (0.0-0.2) % PT 14.6 (11.1-14.7) Seconds INR 1.1 APTT 32.0 (22.3-36.8) Seconds Sodium 136 L (137-145) mmol/L Potassium 4.5 (3.4-5.0) mmol/L Chloride 99 (98-107) mmol/L Carbon Dioxide 29 (22-30) mmol/L Anion Gap 8 (4-12) mmol/L BUN 30 H (9-20) mg/dL Creatinine 2.03 H (0.7-1.3) mg/dL Estim Creat Clear Calc 22 ml/min Estimated GFR 31 L (59 - ) Glucose 179 H (65-110) mg/dL Calcium 8.9 (8.4-10.2) mg/dL Total Bilirubin 0.5 (0.2-1.3) mg/dL AST 14 L (17-59) U/L ALT 9 (6-50) U/L Alkaline Phosphatase 85 (38-126) U/L Total Protein 8.0 (6.3-8.2) g/dL Albumin 4.2 (3.5-5.1) g/dL Urine Color Yellow (Yellow) Urine Appearance Clear (Clear) Urine pH 5.5 (5.0-9.0) Ur Specific [place] 1.019 (1.001-1.035) Urine Protein 3+ H (Negative) mg/dL Urine Glucose (UA) Trace H (Negative) mg/dL Urine Ketones Negative (Negative) mg/dL Ur Blood (Man) 2+ H (Negative) Urine Nitrate Negative (Negative) Urine Bilirubin Negative (Negative) Urine Urobilinogen 0.2 (<2.0) mg/dL Leukocyte Esterase Rfl Negative (Negative) DOMONIQUE/UL Urine RBC 51-100 H (0-2) /hpf Urine WBC 0-5 (0-3) /hpf Ur Squamous Epith Cells Occasional (Few) /hpf Urine Bacteria None seen /hpf Urine Casts 6-10 Hyaline Casts Present (None) /lpf <Carly Plaza PA-C - Last Filed: 09/04/24 15:57> Lab Results 09/04/24 09/04/24 Range/Units 17:46 21:14 WBC 6.4 (4.5-10.0) K/mm3 RBC 4.24 L (4.6-6.20) M/mm3 Hgb 11.8 L (14.0-18.0) g/dL Hct 36.2 L (42.0-52.0) % MCV 85.4 (80-100) fl MCH 27.8 (26-34) pg MCHC 32.6 (32-36) g/dl RDW 15.8 H (11.5-14.5) % Plt Count 300 (150-375) k/mm3 MPV 9.1 (7.4-10.4) fl Immature Gran % (Auto) 0.3 (0-0.5) % Neut % (Auto) 62.5 (45.5-73.1) % Lymph % (Auto) 26.3 (18.3-44.2) % [place] % (Auto) 6.5 (2.6-8.5) % Eos % (Auto) 3.9 (0-4.4) % Baso % (Auto) 0.5 (0.2-1.2) % Lymph # (Auto) 1.69 (0.9-3.2) K/mm3 [place] # (Auto) 0.4 (0.1-0.6) K/mm3 Eos # (Auto) 0.3 (0-0.3) K/mm3 Baso # (Auto) 0.0 (0.0-0.1) K/mm3 Abs Immat Gran (auto) 0.02 (0.00-0.031) K/mm3 Absolute Neuts (auto) 4.0 (1.3-6.7) K/mm3 Absolute Nucleated RBC 0.000 (0.0-0.012) K/mm3 Nucleated RBC % 0.0 (0.0-0.2) % PT 14.6 (11.1-14.7) Seconds INR 1.1 APTT 32.0 (22.3-36.8) Seconds Sodium 136 L (137-145) mmol/L Potassium 4.5 (3.4-5.0) mmol/L Chloride 99 (98-107) mmol/L Carbon Dioxide 29 (22-30) mmol/L Anion Gap 8 (4-12) mmol/L BUN 30 H (9-20) mg/dL Creatinine 2.03 H (0.7-1.3) mg/dL Estim Creat Clear Calc 22 ml/min Estimated GFR 31 L (59 - ) Glucose 179 H (65-110) mg/dL Calcium 8.9 (8.4-10.2) mg/dL Total Bilirubin 0.5 (0.2-1.3) mg/dL AST 14 L (17-59) U/L ALT 9 (6-50) U/L Alkaline Phosphatase 85 (38-126) U/L Total Protein 8.0 (6.3-8.2) g/dL Albumin 4.2 (3.5-5.1) g/dL Urine Color Yellow (Yellow) Urine Appearance Clear (Clear) Urine pH 5.5 (5.0-9.0) Ur Specific [place] 1.019 (1.001-1.035) Urine Protein 3+ H (Negative) mg/dL Urine Glucose (UA) Trace H (Negative) mg/dL Urine Ketones Negative (Negative) mg/dL Ur Blood (Man) 2+ H (Negative) Urine Nitrate Negative (Negative) Urine Bilirubin Negative (Negative) Urine Urobilinogen 0.2 (<2.0) mg/dL Leukocyte Esterase Rfl Negative (Negative) DOMONIQUE/UL Urine RBC 51-100 H (0-2) /hpf Urine WBC 0-5 (0-3) /hpf Ur Squamous Epith Cells Occasional (Few) /hpf Urine Bacteria None seen /hpf Urine Casts 6-10 Hyaline Casts Present (None) /lpf <Ros Ng MD - Last Filed: 09/04/24 22:45> Discharge Plan Discharge Clinical Impression: Generalized weakness, Recurrent falls <Carly Plaza PA-C - Last Filed: 09/04/24 15:57> Patient Disposition: Still a Patient <Carly Plaza PA-C - Last Filed: 09/04/24 15:57> Condition: Stable <Carly Plaza PA-C - Last Filed: 09/04/24 15:57> Patient Language: French <Carly Plaza PA-C - Last Filed: 09/04/24 15:57> Prescriptions: No Action tamsulosin 0.4 mg capsule 0.4 mg PO DAILY ibuprofen 600 mg Tablet 600 mg PO TID PRN (Reason: Pain) acetaminophen 325 mg Capsule 650 mg PO BID PRN (Reason: Pain) Eliquis 2.5 mg Tablet 5 mg PO BID metoprolol succinate 25 mg tablet extended release 24 hr 25 mg PO QAM fluoxetine 40 mg capsule 40 mg PO DAILY hydrocodone-acetaminophen 10-325 mg tablet 1 tablet PO Q6H PRN (Reason: pain) Qty: 1 0RF alprazolam 2 mg tablet,disintegrating 2 mg PO DAILY PRN (Reason: anxiety) Qty: 1 0RF sennosides-docusate sodium [Senokot-S] 8.6-50 mg Tablet 2 tab PO BID Qty: 60 0RF sodium bicarbonate 650 mg Tablet 650 mg PO BID Qty: 60 0RF docusate sodium 100 mg Capsule 100 mg PO Q12H PRN (Reason: Constipation) Qty: 60 0RF azithromycin 500 mg tablet 500 mg PO DAILY Qty: 1 0RF Rx Instructions: take 06/26 amoxicillin-pot clavulanate 500-125 mg tablet 1 tablet PO Q12H Qty: 2 0RF Rx Instructions: start 06/26 famotidine 20 mg tablet 20 mg PO DAILY Levemir FlexPen 100 unit/mL (3 mL) insulin pen 5 unit SUBCUT HS Qty: 15 0RF <Carly Plaza PA-C - Last Filed: 09/04/24 15:57> Follow-up/Referrals: Chapo Trammell MD [Primary Care Provider] - <Carly Plaza PA-C - Last Filed: 09/04/24 15:57> Time of Disposition: 20:46 <Carly Plaza PA-C - Last Filed: 09/04/24 15:57> 20:46 <Ros Ng MD - Last Filed: 09/04/24 22:45>
[2024-09-04 18:04] LABS: Basophils Percent Auto 0.5 % (0.2-1.2); Eosinophils Absolute Auto 0.3 K/mm3 (0-0.3); Eosinophils Percent Auto 3.9 % (0-4.4); Hematocrit 36.2 % (42.0-52.0); Hemoglobin 11.8 g/dL (14.0-18.0); Immature Granulocyte Absolute 0.02 K/mm3 (0.00-0.031); Immature Granulocyte Percent A 0.3 % (0-0.5); Lymphocytes Absolute Auto 1.69 K/mm3 (0.9-3.2); Lymphocytes Percent Auto 26.3 % (18.3-44.2); Mean Corpuscular HGB Conc 32.6 g/dl (32-36); Mean Corpuscular Hemoglobin 27.8 pg (26-34); Mean Corpuscular Volume 85.4 fl (80-100); Mean Platelet Volume 9.1 fl (7.4-10.4); Monocytes Absolute Auto 0.4 K/mm3 (0.1-0.6); Monocytes Percent Auto 6.5 % (2.6-8.5); Neutrophils Percent Auto 62.5 % (45.5-73.1); Platelet Count Result 300 k/mm3 (150-375); Red Blood Count 4.24 M/mm3 (4.6-6.20); Red Cell Distribution Width 15.8 % (11.5-14.5); White Blood Count 6.4 K/mm3 (4.5-10.0)
[2024-09-04 18:13] LABS: Alanine Aminotransferase 9 U/L (6-50); Albumin Level 4.2 g/dL (3.5-5.1); Alkaline Phosphatase 85 U/L (38-126); Anion Gap 8 mmol/L (4-12); Aspartate Amino Transferase 14 U/L (17-59); Bilirubin,Total 0.5 mg/dL (0.2-1.3); Blood Urea Nitrogen 30 mg/dL (9-20); Calcium 8.9 mg/dL (8.4-10.2); Carbon Dioxide 29 mmol/L (22-30); Chloride 99 mmol/L (98-107); Estimated CRCL calculation 22 ml/min; Estimated Glomerular Filt Rate 31; Glucose 179 mg/dL (65-110); Potassium 4.5 mmol/L (3.4-5.0); Sodium 136 mmol/L (137-145)
[2024-09-04 18:18] LABS: INR 1.1; Prothrombin Time 14.6 Seconds (11.1-14.7)
--- NOTE | 2024-09-04 20:44 | ECG_ITS ---
Test Date: 2024-09-04 21:01:35 Measurements Intervals [place] Rate: 75 P: 255 VA: 147 QRS: -21 QRSD: 81 T: 47 QT: 384 QTc: 431 Interpretive Statements SINUS RHYTHM WITH OCCASIONAL SUPRAVENTRICULAR PREMATURE COMPLEXES BORDERLINE LEFT AXIS DEVIATION [QRS AXIS < -20] Compared to ECG 06/21/2024 13:49:34 Ventricular premature complex(es) no longer present Electronically Signed On 09-04-2024 21:37:28 PINKING MACHINE OPERATOR by Sami Marte M.D.
[2024-09-04 20:49] VITALS: BP 176/124; PULSE 76; RESP 17; O2SAT 100
[2024-09-04 21:01] VITALS: BP 163/115; PULSE 75; RESP 19; O2SAT 99
[2024-09-04 21:58] LABS: Add Urine Microscopic? YES; Appearance Urine Clear (Clear); Bacteria Urine None Seen /hpf; Bilirubin Urine Negative (Negative); Blood Urine 2+ (Negative); Color Urine Yellow (Yellow); Glucose Urine UA Trace mg/dL (Negative); Hyaline Casts Urine Present /lpf; Ketones Urine Negative (Negative); Leukocyte Esterase Ur Negative LEU/UL (Negative); Nitrate Urine Negative (Negative); Protein Urine 3+ mg/dL (Negative); RBC Urine 51-100 /hpf (0-2); Specific Grav Ur 1.019 (1.001-1.035); Squamous Epithelial Cell Urine Occasional /hpf (Few); Urobilinogen Urine 0.2 mg/dL (<2.0); WBC Urine 0-5 /hpf (0-3); pH Urine 5.5 (5.0-9.0)
--- NOTE | 2024-09-04 22:08 | P.HP_ITS ---
H&P: HPI History of Present Illness Date/Time: 09/04/24 22:08 Chief Complaint: Generalized weakness Narrative: This is an 83-year-old male with past medical history significant for paroxysmal atrial fibrillation rate controlled anticoagulated, insulin-dependent diabetes mellitus, benign prostatic hyperplasia, colostomy, chronic kidney disease, hypertension. Patient was brought to the emergency room for evaluation due to generalized weakness, recurrent falls. Most of the history has been obtained from daughter who is at bedside. Patient states that he blacks out . Preliminary workup in the emergency room was significant for chest x-ray with air space opacity. Patient has been admitted for further evaluation management and treatment. EXAMINATION: CT brain wo con DATE: 09/04/2024 15:56 INDICATION: Fall. TECHNIQUE: Computed tomography (CT) of the head was performed without intravenous contrast. The mA was adjusted according to patient size. Iterative reconstruction technique was employed. The dose-length product was 681.00 mGy- cm. COMPARISON: Head CT 06/21/2024 FINDINGS: There is an old infarct in the right basal ganglia. There are old infarcts in the left cerebellum. There are scattered areas of low attenuation in the cerebral white matter. There is an old infarct in the right parietal lobe. There is no intracranial hemorrhage, acute infarction, or abnormal intracranial mass lesion. The ventricles are normal in size. There is mild mucosal thickening in the paranasal sinuses. There are likely changes of ocular lens replacement surgeries. There is a right optic nerve drusen. The mastoid air cells are normal. IMPRESSION: 1. 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 2. Stable moderate nonspecific cerebral white matter disease, which likely represents chronic small vessel ischemic disease. EXAMINATION: XR chest 2V DATE: 09/04/2024 16:07 INDICATION: Weakness. TECHNIQUE: Frontal and lateral views of the chest were obtained on 3 radiographs. COMPARISON: Chest single view 06/21/2024, chest CT 08/21/2024 FINDINGS: There are airspace opacities in right midlung zone. Calcified pulmonary nodules are consistent with old granulomatous disease. No pleural effusion or pneumothorax. The heart size is normal. There are multiple chronic vertebral body fractures. There are changes of vertebroplasty at L1. IMPRESSION: 1. Worsened airspace opacities in right midlung zone, likely changes of radiation therapy. Review of Systems Review of Systems: Generalized weakness, recurrent falls, blacking out. PMFSH Past Medical History Medical History Chronic anticoagulation Paroxysmal atrial fibrillation Benign prostatic hyperplasia Subdural hematoma Anemia of chronic disease Chronic renal failure, stage 3 (moderate) Dementia Chronic narcotic use Cerebrovascular accident (10/27/18) Anxiety Hyperlipidemia Hypertension Insulin dependent diabetes mellitus Surgical History Surgical History History of left hip hemiarthroplasty History of inguinal hernia repair History of colostomy Family History Family History Mother Diabetes mellitus Congestive heart failure Father Cerebrovascular accident Daughter Cancer Social History Social History (Updated 09/05/24 @ 01:43 by Kyung Felder) Social History: Healthcare power of shipping technician: Kelly Fernandez, daughter. Code status: Full code. Smoking packs per day: 0.5 Smoking cigarettes per day: 10.0 Years smoked: 20 Smoking pack-years: 10.00 Smoking status: Former smoker Tobacco type: cigarettes Alcohol intake: former Substance use: never Substance use type: does not use Do You Feel Safe in your Home?: Yes Lack of Transportation: No Lack of Food: Never True Current Housing: I Have Housing Concerned About Future Housing: No Difficulty Paying Gas/Electric Bills: No Difficulty Paying for Meds: No Currently Unemployed: No Education: High School Diploma/GED Difficulty w/ Childcare or Family Care: No Living arrangements: with family Additional living arrangements comments: . Had 3 children. Rehabbed in past at [facility]. Lives with daughter Kelly Occupation/Education: retired Additional occupation/education comments: Retired banker. Gender identity (if verbalized by the patient): Male Spiritual care concerns: No Meds Home Medications and Allergies Home Medications ?Medication ?Instructions ?Recorded ?Confirmed ?Type tamsulosin 0.4 mg capsule 0.4 mg PO DAILY 06/18/22 09/05/24 History famotidine 20 mg tablet 20 mg PO DAILY 11/04/23 09/05/24 History insulin detemir U-100 100 unit/mL 5 unit (0.05 mL) subcut HS #15 mL 12/21/23 09/05/24 Rx (3 mL) subcutaneous pen (Levemir FlexPen) acetaminophen 325 mg capsule 650 mg PO BID PRN Pain 01/28/24 09/05/24 History apixaban 2.5 mg tablet (Eliquis) 5 mg PO BID 01/28/24 09/05/24 History ibuprofen 600 mg tablet 600 mg PO TID PRN Pain 01/28/24 09/05/24 History metoprolol succinate 25 mg 25 mg PO QAM 01/28/24 09/05/24 History tablet,extended release 24 hr fluoxetine 40 mg capsule 40 mg PO DAILY 06/21/24 09/05/24 History docusate sodium 100 mg capsule 100 mg PO Q12H PRN Constipation 06/25/24 09/05/24 Rx #60 caps hydrocodone 10 mg-acetaminophen 1 tablet PO Q6H PRN pain #1 tablet 06/25/24 09/05/24 Rx 325 mg tablet sodium bicarbonate 650 mg tablet 650 mg PO BID #60 tabs 06/25/24 09/05/24 Rx alprazolam 2 mg disintegrating 2 mg PO BID PRN anxiety 09/05/24 09/05/24 History tablet alprazolam 2 mg tablet 2 mg PO BID PRN panic attack(s) 09/05/24 09/05/24 History apixaban 5 mg tablet (Eliquis) 5 mg PO Q12H 09/05/24 09/05/24 History insulin glargine 100 unit/mL (3 5 unit subcut QHS 09/05/24 09/05/24 History mL) subcutaneous pen (Basaglar KwikPen U-100 Insulin) sennosides 8.6 mg-docusate sodium 2 tab PO BID PRN constipation 09/05/24 09/05/24 History 50 mg tablet (Senokot-S) Allergies Allergy/AdvReac Type Severity Reaction Status Date / Time acetaminophen (From [place]) Allergy Mild Itching Verified 09/05/24 04:00 hydrocodone (From [place]) Allergy Mild Itching Verified 09/05/24 04:00 Vital Signs Vital Signs - 24 hr 09/04/24 15:30 Temperature 97.0 F L Pulse Rate 75 Respiratory Rate 16 Blood Pressure 149/90 H Pulse Oximetry 100 Oxygen Delivery Room Air Exam Narrative: Laying in a stretcher Const: General: comfortable, no acute distress, well developed, alert, awake, ill appearing chronically and average body habitus Nutritional Appearance: average body habitus Orientation/consciousness: patient oriented x3 HENMT: Head: normal to inspection, normocephalic and atraumatic Ears: hearing grossly normal bilaterally Face/Nose/Sinus: normal facial exam Face and sinus: normal facial exam Eyes: General: appearance normal, both eyes and all related structures Pupils: Equal, round and reactive pupils present EOM: EOMs intact bilaterally Neck: Neck: full ROM, no lymphadenopathy and no JVD Thyroid: thyroid normal Lymphatic: no lymphadenopathy noted Resp: Effort & Inspection: normal respiratory effort and able to speak in complete sentences Auscultation: clear to auscultation bilaterally Cardio: Jugular venous distension: no JVD Rate: regular rate Rhythm: regular rhythm Heart sounds: S1 normal heart sound present and S2 normal heart sound present GI: Inspection: other (Colostomy bag in place) GI Palp: Yes Soft to palpation and Yes No hepatosplenomegaly present : General: Yes deferred Skin: Rashes: no rashes Wounds: no wounds Neuro: General: patient oriented x3 and CN's II-XI intact bilaterally Cranial nerves: Yes CN's II-XII intact bilaterally and Yes Equal, round and reactive pupils present Cognition (Neuro): normal cognition Speech: normal speech Gait exam (Neuro): Normal gait present Motor exam (neuro): 5/5 motor strength present throughout Extrem: General: normal to inspection, full ROM, no joint enlargement and no pedal edema H&P: Results Labs Labs: Short CBC 09/04/24 Range/Units 17:46 WBC 6.4 (4.5-10.0) K/mm3 Hgb 11.8 L (14.0-18.0) g/dL Hct 36.2 L (42.0-52.0) % Plt Count 300 (150-375) k/mm3 BMP 09/04/24 17:46 Sodium 136 L Potassium 4.5 Chloride 99 Carbon Dioxide 29 BUN 30 H Creatinine 2.03 H Glucose 179 H Calcium 8.9 Liver Function 09/04/24 Range/Units 17:46 Total Bilirubin 0.5 (0.2-1.3) mg/dL AST 14 L (17-59) U/L ALT 9 (6-50) U/L Alkaline Phosphatase 85 (38-126) U/L Albumin 4.2 (3.5-5.1) g/dL Urine 09/04/24 Range/Units 21:14 Urine Color Yellow (Yellow) Urine Appearance Clear (Clear) Urine pH 5.5 (5.0-9.0) Ur Specific [place] 1.019 (1.001-1.035) Urine Protein 3+ H (Negative) mg/dL Urine Glucose (UA) Trace H (Negative) mg/dL Assessment and Plan Assessment and plan (1) Pneumonia: Qualifiers: Laterality: bilateral Lung location: unspecified part of lung Pneumon ia type: due to unspecified organism Qualified Code(s): J18.9 - Pneumonia, unspecified organism Code(s): J18.9 - Pneumonia, unspecified organism Status: Acute Assessment and Plan: Admit to regular medical floor Patient started on antibiotics as per no so, pneumonia antibiotics stewardship Cultures in progress (2) Hypertension: Code(s): I10 - Essential (primary) hypertension Status: Chronic Assessment and Plan: Resume home meds as needed (3) Paroxysmal atrial fibrillation: Code(s): I48.0 - Paroxysmal atrial fibrillation Status: Acute Assessment and Plan: Rate controlled and anticoagulated (4) GERD (gastroesophageal reflux disease): Code(s): K21.9 - Gastro-esophageal reflux disease without esophagitis Status: Acute Assessment and Plan: Pepcid (5) Chronic renal failure, stage 3 (moderate): Code(s): N18.30 - Chronic kidney disease, stage 3 unspecified Status: Acute Assessment and Plan: BUN and creatinine at patient's baseline Continue to monitor Hold ibuprofen (6) Generalized weakness: Code(s): R53.1 - Weakness Status: Acute Assessment and Plan: PT OT as needed (7) Recurrent falls: Code(s): R29.6 - Repeated falls Status: Acute Assessment and Plan: Fall precautions Hospitalist [facility] Advance Care Plan I have confirmed that the patient's Advanced Care Plan is present, code status is documented, or surrogate decision maker is listed in patient medical record.: Yes Medication Reconciliation I have utilized all available resources to obtain, update and review the patients current medications (includes all prescriptions, OTC, herbals, cannabis, and nutritional supplements).: Yes
--- NOTE | 2024-09-04 22:55 | PC.NURSE ---
Blood cultures ordered on pt. No culture bottles in ED at this time. biodiesel production technician retrieving culture bottles from lab and then to be completing order for blood cultures.
--- NOTE | 2024-09-04 23:59 | PC.NURSE ---
blood cultures x 2 set drawn by maurice BATISTA starting after that has been collected.
[2024-09-05] VITALS (10 sets, daily range): BP systolic 137–171; BP diastolic 84–114; PULSE 52–85; RESP 12–18; TEMP 36–36.5; O2SAT 96–100; BMI 18.5
[2024-09-05] MEDS: AZITHROMYCIN 500 MG/NS 250 ML 500 MG/250 ML BAG 250 MG IVPB
[2024-09-05] MEDS: CEFEPIME 2 GM/NS 50 ML 2 GM/50 ML BAG IVPB
--- NOTE | 2024-09-05 00:58 | PC.NURSE ---
rahul el hydralazine 10mg iv push x 1
[2024-09-05] MEDS: hydrALAZINE HCL 20 MG/ML VIAL 10 MG IV PUSH (01:06)
[2024-09-05 01:18] LABS: MRSA (PCR) NOT DETECTED (NOT DETECTE)
--- NOTE | 2024-09-05 01:28 | ADMGEN ---
This patient, Vitaly Hatfield, was admitted to [address] [facility] Surg Room 316-02 at 0112. Patient/family oriented to hospital policies and general routines including ID bracelet, bed and alarms, visiting hours, pain management, procedures, bathroom and other care routines, personal items, smoking policy, room service/diet, and visiting hours. Information on how to activate the Rapid Response Team has been discussed. Patient/Family are encouraged to report perceived risks to care and to ask questions if they do not understand what they are told or what they should do.
[2024-09-05] MEDS: VANCOMYCIN 1,750 MG/NS 500 ML 1,750 MG/500 ML BAG 250 MG IVPB (02:07)
[2024-09-05] MEDS: ALPRAZolam (*CRX) 0.5 MG TABLET 2 MG BY MOUTH (02:57)
--- NOTE | 2024-09-05 04:27 | PC.NURSE ---
patient states he has been taking norco 10 at home, and it makes him itch. i verified this info with Dr. Bernal who states this is a normal response, not an allergy, and ordered benadryl PO PRN for itching associated with norco
--- NOTE | 2024-09-05 06:47 | PC.NURSE ---
call placed x2 to patient's daughter Kelly regarding patient's medication list. voicemails left instructing Kelly to call RN back. medication list filled out to the best of patient's ability, with the help of the external med rec.
[2024-09-05 07:33] LABS: Estimated CRCL calculation 24 ml/min; Estimated Glomerular Filt Rate 36
[2024-09-05 08:31] LABS: Glucose Point of Care 129 mg/dl (65-105)
[2024-09-05] MEDS: TAMSULOSIN HCL 0.4 MG CAPSULE PO (08:54)
[2024-09-05] MEDS: METOPROLOL SUCCINATE EXT REL 25 MG TABCR PO (08:54)
[2024-09-05] MEDS: APIXABAN 5 MG TABLET PO ×2 (08:54→20:42)
[2024-09-05] MEDS: FLUoxetine HCL 20 MG CAPSULE 40 MG PO (08:54)
[2024-09-05] MEDS: SODIUM BICARBONATE TAB 650 MG TABLET PO ×2 (08:54→16:31)
[2024-09-05] MEDS: FAMOTIDINE 20 MG TABLET PO (09:00)
[2024-09-05 11:49] LABS: Glucose Point of Care 166 mg/dl (65-105)
[2024-09-05 17:09] LABS: Glucose Point of Care 127 mg/dl (65-105)
--- NOTE | 2024-09-05 17:52 | P.PNIM_ITS ---
Progress Note: A&P Assessment and Plan (1) Pneumonia: Qualifiers: Laterality: bilateral Lung location: unspecified part of lung Pneumonia type: due to unspecified organism Qualified Code(s): J18.9 - Pneumonia, unspecified organism Code(s): J18.9 - Pneumonia, unspecified organism Status: Acute (2) Hypertension: Code(s): I10 - Essential (primary) hypertension Status: Chronic (3) Paroxysmal atrial fibrillation: Code(s): I48.0 - Paroxysmal atrial fibrillation Status: Acute (4) GERD (gastroesophageal reflux disease): Code(s): K21.9 - Gastro-esophageal reflux disease without esophagitis Status: Acute (5) Chronic renal failure, stage 3 (moderate): Code(s): N18.30 - Chronic kidney disease, stage 3 unspecified Status: Acute (6) Generalized weakness: Code(s): R53.1 - Weakness Status: Acute (7) Recurrent falls: Code(s): R29.6 - Repeated falls Status: Acute Plan This is a 83-year-old male who presents to the ED with weakness and frequent falls over past month he has had increased weakness unsteady gait and frequent falls. His legs give out on him no significant injury from falls reported. Patient has history of atrial fibrillation and on Eliquis. Has underlying history of dementia. On ED evaluation his vitals were stable. EKG with sinus rhythm rate controlled. Laboratory evaluation with no acute process. Creatinine noted to be 2.03 which is at baseline. Chest x-ray revealed worsened airspace opacities in the right mid lung zone likely changes of radiation therapy. CT head with findings of old infarction right basal ganglia right parietal lobe stable moderate nonspecific cerebral white matter disease likely represents chronic small vessel ischemic disease. Urinalysis showed 51-100 urine rbc's with no signs of infection. Nasal MRSA swab came back negative. Recent CT chest performed on 08/22/2024 with since of consolidation peripherally in the right lung which has most suggestive of postradiation change. 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 Patient has been started on antibiotics for pneumonia. Cultures are obtained and will be followed. PT OT will be ordered. Unclear if this is show radiation changes are additional consolidation. Will check procalcitonin. Vancomycin will be stopped as nasal MRSA swab is negative Right upper lobe lung cancer status post radiation Paroxysmal atrial fibrillation on anticoagulation History of subdural hematoma Benign prostatic appt hyperplasia Anemia chronic disease stable counts CKD stage 3/4 Dementia History of CVA 1019 Hypertension Hyperlipidemia Anxiety Insulin-dependent diabetes mellitus DVT prophylaxis Eliquis Code status full code Subjective Date/time seen: 09/05/24 17:52 Interval history: No overnight events. Patient confused. Denies any overt symptoms. Review of Systems Review of Systems: All systems reviewed & are unremarkable except as noted in HPI and below Exam Narrative: General: Alert, awake, afebrile, in no acute distress. HEENT: PERRL, no rhinorrhea, no post nasal drip, oropharynx clear. Neck: Trachea midline, no JVD, no lymphadenopathy. Cardiovascular: Regular rate and rhythm, no murmurs, rubs or gallops, no peripheral edema. Respiratory: Clear to auscultation bilaterally, no tachypnea, no wheezing, no rhonchi, no rubs, no respiratory distress. Abdomen: Soft, nontender, nondistended, no rebound, no guarding, no peritoneal signs. Musculoskeletal: No joint swelling or deformity, normal muscle tone. Skin: No rashes or petechia, no signs of infection. Psychiatric: Normal behavior and judgment for situation. Neurological: Alert and oriented to person and place which is baseline 2/2 hx of dementia. Follows all commands. Moving all extremities spontaneously. No focal deficits, speech is clear and fluent. Objective Data Vital Signs Vital Signs: Vital Signs - 24 hr 09/04/24 20:49 09/04/24 21:01 09/05/24 00:08 Temperature Pulse Rate 76 75 74 Respiratory Rate 17 19 15 Blood Pressure 176/124 H 163/115 H 168/114 H Pulse Oximetry 100 99 100 Oxygen Delivery 09/05/24 00:09 09/05/24 01:17 09/05/24 01:27 Temperature 97.1 F L Pulse Rate 76 64 Respiratory Rate 14 18 Blood Pressure 168/114 H 171/89 H Pulse Oximetry 98 100 Oxygen Delivery Room Air 09/05/24 02:57 09/05/24 08:00 09/05/24 08:47 Temperature 97.0 F L Pulse Rate 62 Respiratory Rate 18 Blood Pressure 137/87 Pulse Oximetry 97 96 Oxygen Delivery Room Air Room Air 09/05/24 08:54 09/05/24 12:00 Temperature 97.7 F Pulse Rate 85 84 Respiratory Rate 16 Blood Pressure 149/93 H Pulse Oximetry 99 Oxygen Delivery Intake/Output Intake/Output: Intake & Output 09/02/24 09/03/24 09/04/24 09/05/24 23:59 23:59 23:59 23:59 Intake Total 848 Balance 848 Meds/Results Medications: Active Medications Generic Name Dose Route Start Last Admin Trade Name Freq PRN Reason Stop Dose Admin Acetaminophen 650 mg 09/05/24 03:52 Acetaminophen 325 Mg Tablet PO BID PRN Pain 1-3 Hydrocodone Bitart/Acetaminophen 1 tab 09/05/24 03:52 Hydrocodone/Acetaminophen (*Crx) 10-325 Mg Tablet PO Q6H PRN pain 4-6 Alprazolam 2 mg 09/05/24 02:27 09/05/24 02:57 Alprazolam (*Crx) 0.5 Mg Tablet BY MOUTH 2 mg BID PRN Administration anxiety Apixaban 5 mg 09/05/24 09:00 09/05/24 08:54 Apixaban 5 Mg Tablet PO 5 mg Q12HR ROBY Administration Azithromycin 500 mg 09/05/24 21:00 Azithromycin 250 Mg Tablet PO 09/08/24 21:01 QHS ROBY Diphenhydramine HCl 25 mg 09/05/24 04:30 Diphenhydramine Hcl Cap 25 Mg Capsule PO Q6H PRN Itching Docusate Sodium 100 mg 09/05/24 03:52 Docusate Sodium 100 Mg Capsule PO Q12H PRN Constipation Famotidine 20 mg 09/05/24 09:00 09/05/24 09:00 Famotidine 20 Mg Tablet PO 20 mg DAILY ROBY Administration Fluoxetine HCl 40 mg 09/05/24 09:00 09/05/24 08:54 Fluoxetine Hcl 20 Mg Capsule PO 40 mg DAILY ROBY Administration Ceftriaxone Sodium 2 gm in 100 mls @ 200 mls/hr 09/05/24 21:00 Rocephin 2 Gm/Ns 100 Ml IVPB Q24H ROBY Insulin Glargine 5 units 09/05/24 21:00 Insulin Glargine (*Bkc) 100 Units/Ml SUB-Q QHS ROBY Metoprolol Succinate 25 mg 09/05/24 09:00 09/05/24 08:54 Metoprolol Succinate Ext Rel 25 Mg Tabcr PO 25 mg QAM ROBY Administration Senna/Docusate Sodium 2 tab 09/05/24 03:52 Senna/Docusate Sodium Tablet PO BID PRN constipation Sodium Bicarbonate 650 mg 09/05/24 09:00 09/05/24 16:31 Sodium Bicarbonate Tab 650 Mg Tablet PO 650 mg BID ROBY Administration Tamsulosin HCl 0.4 mg 09/05/24 09:00 09/05/24 08:54 Tamsulosin Hcl 0.4 Mg Capsule PO 0.4 mg DAILY ROBY Administration Radiology Results: ITS Impressions Head CT 09/04/24 15:57 IMPRESSION: 1. 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 2. Stable moderate nonspecific cerebral white matter disease, which likely represents chronic small vessel ischemic disease. Chest X-Ray 09/04/24 16:09 IMPRESSION: 1. Worsened airspace opacities in right midlung zone, likely changes of radiation therapy. Labs Labs: Laboratory Results - last 24 hr 09/04/24 09/04/24 09/04/24 17:46 21:14 23:58 WBC 6.4 RBC 4.24 L Hgb 11.8 L Hct 36.2 L MCV 85.4 MCH 27.8 MCHC 32.6 RDW 15.8 H Plt Count 300 MPV 9.1 Immature Gran % (Auto) 0.3 Neut % (Auto) 62.5 Lymph % (Auto) 26.3 [place] % (Auto) 6.5 Eos % (Auto) 3.9 Baso % (Auto) 0.5 Lymph # (Auto) 1.69 [place] # (Auto) 0.4 Eos # (Auto) 0.3 Baso # (Auto) 0.0 Abs Immat Gran (auto) 0.02 Absolute Neuts (auto) 4.0 Absolute Nucleated RBC 0.000 Nucleated RBC % 0.0 PT 14.6 INR 1.1 APTT 32.0 Sodium 136 L Potassium 4.5 Chloride 99 Carbon Dioxide 29 Anion Gap 8 BUN 30 H Creatinine 2.03 H Estim Creat Clear Calc 22 Estimated GFR 31 L Glucose 179 H POC Capillary Glucose Calcium 8.9 Total Bilirubin 0.5 AST 14 L ALT 9 Alkaline Phosphatase 85 Total Protein 8.0 Albumin 4.2 Urine Color Yellow Urine Appearance Clear Urine pH 5.5 Ur Specific [place] 1.019 Urine Protein 3+ H Urine Glucose (UA) Trace H Urine Ketones Negative Ur Blood (Man) 2+ H Urine Nitrate Negative Urine Bilirubin Negative Urine Urobilinogen 0.2 Leukocyte Esterase Rfl Negative Urine RBC 51-100 H Urine WBC 0-5 Ur Squamous Epith Cells Occasional Urine Bacteria None seen Urine Casts 6-10 Hyaline Casts Present Nasal MRSA (PCR) Not detected 09/05/24 09/05/24 09/05/24 06:45 08:27 11:42 WBC RBC Hgb Hct MCV MCH MCHC RDW Plt Count MPV Immature Gran % (Auto) Neut % (Auto) Lymph % (Auto) [place] % (Auto) Eos % (Auto) Baso % (Auto) Lymph # (Auto) [place] # (Auto) Eos # (Auto) Baso # (Auto) Abs Immat Gran (auto) Absolute Neuts (auto) Absolute Nucleated RBC Nucleated RBC % PT INR APTT Sodium Potassium Chloride Carbon Dioxide Anion Gap BUN Creatinine 1.82 H Estim Creat Clear Calc 24 Estimated GFR 36 L Glucose POC Capillary Glucose 129 H 166 H Calcium Total Bilirubin AST ALT Alkaline Phosphatase Total Protein Albumin Urine Color Urine Appearance Urine pH Ur Specific [place] Urine Protein Urine Glucose (UA) Urine Ketones Ur Blood (Man) Urine Nitrate Urine Bilirubin Urine Urobilinogen Leukocyte Esterase Rfl Urine RBC Urine WBC Ur Squamous Epith Cells Urine Bacteria Urine Casts Hyaline Casts Nasal MRSA (PCR) 09/05/24 16:55 WBC RBC Hgb Hct MCV MCH MCHC RDW Plt Count MPV Immature Gran % (Auto) Neut % (Auto) Lymph % (Auto) [place] % (Auto) Eos % (Auto) Baso % (Auto) Lymph # (Auto) [place] # (Auto) Eos # (Auto) Baso # (Auto) Abs Immat Gran (auto) Absolute Neuts (auto) Absolute Nucleated RBC Nucleated RBC % PT INR APTT Sodium Potassium Chloride Carbon Dioxide Anion Gap BUN Creatinine Estim Creat Clear Calc Estimated GFR Glucose POC Capillary Glucose 127 H Calcium Total Bilirubin AST ALT Alkaline Phosphatase Total Protein Albumin Urine Color Urine Appearance Urine pH Ur Specific [place] Urine Protein Urine Glucose (UA) Urine Ketones Ur Blood (Man) Urine Nitrate Urine Bilirubin Urine Urobilinogen Leukocyte Esterase Rfl Urine RBC Urine WBC Ur Squamous Epith Cells Urine Bacteria Urine Casts Hyaline Casts Nasal MRSA (PCR)
[2024-09-05 19:01] LABS: Procalcitonin 0.1 ng/mL
[2024-09-05 20:20] LABS: Glucose Point of Care 203 mg/dl (65-105)
[2024-09-05] MEDS: AZITHROMYCIN 250 MG TABLET 500 MG PO (20:42)
[2024-09-05] MEDS: cefTRIAXone 2 GM/NS 100 ML 2 GM/100 ML BAG IVPB (20:43)
[2024-09-05] MEDS: INSULIN GLARGINE (*BKC) 100 UNITS/ML SUB-Q (20:54)
[2024-09-06] VITALS: PULSE 74
[2024-09-06 04:00] VITALS: BP 170/109; PULSE 62; RESP 13; TEMP 36.1; O2SAT 98
[2024-09-06] MEDS: hydrALAZINE HCL 20 MG/ML VIAL 10 MG IV PUSH (06:07)
[2024-09-06 06:38] LABS: Basophils Percent Auto 0.4 % (0.2-1.2); Eosinophils Absolute Auto 0.2 K/mm3 (0-0.3); Eosinophils Percent Auto 3.1 % (0-4.4); Hematocrit 34.6 % (42.0-52.0); Immature Granulocyte Absolute 0.02 K/mm3 (0.00-0.031); Immature Granulocyte Percent A 0.3 % (0-0.5); Lymphocytes Absolute Auto 1.63 K/mm3 (0.9-3.2); Lymphocytes Percent Auto 23.7 % (18.3-44.2); Mean Corpuscular HGB Conc 31.8 g/dl (32-36); Mean Corpuscular Hemoglobin 26.9 pg (26-34); Mean Corpuscular Volume 84.6 fl (80-100); Mean Platelet Volume 9.2 fl (7.4-10.4); Monocytes Absolute Auto 0.4 K/mm3 (0.1-0.6); Neutrophils Absolute Auto 4.6 K/mm3 (1.3-6.7); Neutrophils Percent Auto 66.5 % (45.5-73.1); Platelet Count Result 259 k/mm3 (150-375); Red Blood Count 4.09 M/mm3 (4.6-6.20); Red Cell Distribution Width 15.4 % (11.5-14.5); White Blood Count 6.9 K/mm3 (4.5-10.0)
[2024-09-06 06:50] LABS: Alanine Aminotransferase 8 U/L (6-50); Albumin Level 3.5 g/dL (3.5-5.1); Alkaline Phosphatase 86 U/L (38-126); Anion Gap 8 mmol/L (4-12); Aspartate Amino Transferase 14 U/L (17-59); Bilirubin,Total 0.4 mg/dL (0.2-1.3); Blood Urea Nitrogen 31 mg/dL (9-20); Calcium 8.2 mg/dL (8.4-10.2); Carbon Dioxide 23 mmol/L (22-30); Chloride 104 mmol/L (98-107); Estimated CRCL calculation 22 ml/min; Estimated Glomerular Filt Rate 32; Glucose 115 mg/dL (65-110); Potassium 4.5 mmol/L (3.4-5.0); Sodium 135 mmol/L (137-145)
[2024-09-06 09:04] LABS: Glucose Point of Care 112 mg/dl (65-105)
[2024-09-06] MEDS: FLUoxetine HCL 20 MG CAPSULE 40 MG PO (10:46)
[2024-09-06] MEDS: APIXABAN 5 MG TABLET PO ×2 (10:46→20:51)
[2024-09-06] MEDS: ALPRAZolam (*CRX) 0.5 MG TABLET 2 MG BY MOUTH (10:46)
[2024-09-06 10:47] VITALS: PULSE 92
[2024-09-06] MEDS: FAMOTIDINE 20 MG TABLET PO (10:47)
[2024-09-06] MEDS: METOPROLOL SUCCINATE EXT REL 25 MG TABCR PO (10:47)
[2024-09-06] MEDS: TAMSULOSIN HCL 0.4 MG CAPSULE PO (10:47)
[2024-09-06] MEDS: SODIUM BICARBONATE TAB 650 MG TABLET PO ×2 (10:47→20:55)
[2024-09-06 11:14] VITALS: BP 150/98; PULSE 93; RESP 18; TEMP 37; O2SAT 98
--- NOTE | 2024-09-06 11:28 | P.PNIM_ITS ---
Progress Note: A&P Assessment and Plan (1) Pneumonia: Qualifiers: Laterality: bilateral Lung location: unspecified part of lung Pneumonia type: due to unspecified organism Qualified Code(s): J18.9 - Pneumonia, unspecified organism Code(s): J18.9 - Pneumonia, unspecified organism Status: Acute Assessment and Plan: * Chest x-ray revealed worsened airspace opacities in the right mid lung zone likely changes of radiation therapy. * Recent CT chest performed on 08/22/2024 with since of consolidation peripherally in the right lung which has most suggestive of postradiation change. 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 * Azithromycin 500 mg PO HS and Ceftriaxone 2 gram IVPB daily. * MRSA swab negative and Vancomycin discontinued. * Incentive spirometer. * Blood cultures no growth to date. * PT/OT (2) Hypertension: Code(s): I10 - Essential (primary) hypertension Status: Chronic Assessment and Plan: * Blood pressure 150/98 * Metoprolol 25 mg PO qam. (3) Paroxysmal atrial fibrillation: Code(s): I48.0 - Paroxysmal atrial fibrillation Status: Acute Assessment and Plan: * Apixaban 5 mg PO q 12 * Metoprolol 25 mg PO qam. (4) GERD (gastroesophageal reflux disease): Code(s): K21.9 - Gastro-esophageal reflux disease without esophagitis Status: Acute Assessment and Plan: * Famotidine 20 mg PO daily. (5) Chronic renal failure, stage 3 (moderate): Code(s): N18.30 - Chronic kidney disease, stage 3 unspecified Status: Acute Assessment and Plan: * BUN 31, Creatinine 2.01, and GFR 32. Creatinine at baseline. (6) Generalized weakness: Code(s): R53.1 - Weakness Status: Acute Assessment and Plan: * PT/OT (7) Recurrent falls: Code(s): R29.6 - Repeated falls Status: Acute Assessment and Plan: * This is a 83-year-old male who presents to the ED with weakness and frequent falls over past month he has had increased weakness unsteady gait and frequent falls. His legs give out on him no significant injury from falls reported. * PT/OT for strengthening and balance. Subjective Date/time seen: 09/06/24 11:28 Interval history: Patient sitting up in bed. Patient denies chest pain, palpitations, headache, dizziness, nausea, or vomiting. Review of Systems Review of Systems: All systems reviewed & are unremarkable except as noted in HPI and below Exam Const: General: comfortable and no acute distress Resp: Effort & Inspection: normal respiratory effort Auscultation: clear to auscultation bilaterally Cardio: Rate: regular rate Rhythm: regular rhythm Other: Telemetry SR 94 GI: GI Palp: Yes Soft to palpation Auscultation: normal bowel sounds Skin: General skin exam: no rashes or lesions noted Neuro: Speech: normal speech Psych: Other: Alert and oriented to person and place which is baseline 2/2 hx of dementia. Follows all commands. Moving all extremities spontaneously. No focal deficits, speech is clear and fluent. Objective Data Vital Signs Vital Signs: Vital Signs - 24 hr 09/05/24 12:00 09/05/24 16:00 09/05/24 20:00 Temperature 97.7 F 96.8 F L 97.3 F L Pulse Rate 84 59 L 81 Respiratory Rate 16 14 12 Blood Pressure 149/93 H 137/87 138/84 Pulse Oximetry 99 100 98 Oxygen Delivery 09/05/24 20:00 09/05/24 20:00 09/05/24 23:59 Temperature 97.2 F L Pulse Rate 81 63 52 L Respiratory Rate 12 14 Blood Pressure 156/98 H Pulse Oximetry 98 98 Oxygen Delivery Room Air 09/06/24 00:00 09/06/24 04:00 09/06/24 04:00 Temperature 96.9 F L Pulse Rate 74 62 62 Respiratory Rate 13 Blood Pressure 170/109 H Pulse Oximetry 98 Oxygen Delivery 09/06/24 10:47 09/06/24 11:14 Temperature 98.6 F Pulse Rate 92 93 Respiratory Rate 18 Blood Pressure 150/98 H Pulse Oximetry 98 Oxygen Delivery Intake/Output Intake/Output: Intake & Output 09/03/24 09/04/24 09/05/24 09/06/24 23:59 23:59 23:59 23:59 Intake Total 1188 690 Output Total 650 Balance 1188 40 Meds/Results Medications: Active Medications Generic Name Dose Route Start Last Admin Trade Name Freq PRN Reason Stop Dose Admin Acetaminophen 650 mg 09/05/24 03:52 Acetaminophen 325 Mg Tablet PO BID PRN Pain 1-3 Hydrocodone Bitart/Acetaminophen 1 tab 09/05/24 03:52 Hydrocodone/Acetaminophen (*Crx) 10-325 Mg Tablet PO Q6H PRN pain 4-6 Alprazolam 2 mg 09/05/24 02:27 09/06/24 10:46 Alprazolam (*Crx) 0.5 Mg Tablet BY MOUTH 2 mg BID PRN Administration anxiety Apixaban 5 mg 09/05/24 09:00 09/06/24 10:46 Apixaban 5 Mg Tablet PO 5 mg Q12HR ROBY Administration Azithromycin 500 mg 09/05/24 21:00 09/05/24 20:42 Azithromycin 250 Mg Tablet PO 09/08/24 21:01 500 mg QHS ROBY Administration Diphenhydramine HCl 25 mg 09/05/24 04:30 Diphenhydramine Hcl Cap 25 Mg Capsule PO Q6H PRN Itching Docusate Sodium 100 mg 09/05/24 03:52 Docusate Sodium 100 Mg Capsule PO Q12H PRN Constipation Famotidine 20 mg 09/05/24 09:00 09/06/24 10:47 Famotidine 20 Mg Tablet PO 20 mg DAILY ROBY Administration Fluoxetine HCl 40 mg 09/05/24 09:00 09/06/24 10:46 Fluoxetine Hcl 20 Mg Capsule PO 40 mg DAILY ROBY Administration Ceftriaxone Sodium 2 gm in 100 mls @ 200 mls/hr 09/05/24 21:00 09/05/24 21:15 Rocephin 2 Gm/Ns 100 Ml IVPB Infused Q24H ROBY Infusion Insulin Glargine 5 units 09/05/24 21:00 09/05/24 20:54 Insulin Glargine (*Bkc) 100 Units/Ml SUB-Q 5 units QHS ROBY Administration Metoprolol Succinate 25 mg 09/05/24 09:00 09/06/24 10:47 Metoprolol Succinate Ext Rel 25 Mg Tabcr PO 25 mg QAM ROBY Administration Senna/Docusate Sodium 2 tab 09/05/24 03:52 Senna/Docusate Sodium Tablet PO BID PRN constipation Sodium Bicarbonate 650 mg 09/05/24 09:00 09/06/24 10:47 Sodium Bicarbonate Tab 650 Mg Tablet PO 650 mg BID ROBY Administration Tamsulosin HCl 0.4 mg 09/05/24 09:00 09/06/24 10:47 Tamsulosin Hcl 0.4 Mg Capsule PO 0.4 mg DAILY ROBY Administration Radiology Results: ITS Impressions Head CT 09/04/24 15:57 IMPRESSION: 1. 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 2. Stable moderate nonspecific cerebral white matter disease, which likely represents chronic small vessel ischemic disease. Chest X-Ray 09/04/24 16:09 IMPRESSION: 1. Worsened airspace opacities in right midlung zone, likely changes of radiation therapy. Labs Labs: Laboratory Results - last 24 hr 09/05/24 09/05/24 09/05/24 11:42 16:55 17:46 WBC RBC Hgb Hct MCV MCH MCHC RDW Plt Count MPV Immature Gran % (Auto) Neut % (Auto) Lymph % (Auto) [place] % (Auto) Eos % (Auto) Baso % (Auto) Lymph # (Auto) [place] # (Auto) Eos # (Auto) Baso # (Auto) Abs Immat Gran (auto) Absolute Neuts (auto) Absolute Nucleated RBC Nucleated RBC % Sodium Potassium Chloride Carbon Dioxide Anion Gap BUN Creatinine Estim Creat Clear Calc Estimated GFR Glucose POC Capillary Glucose 166 H 127 H Calcium Magnesium Total Bilirubin AST ALT Alkaline Phosphatase Total Protein Albumin Procalcitonin 0.1 09/05/24 09/06/24 09/06/24 19:49 06:27 08:17 WBC 6.9 RBC 4.09 L Hgb 11.0 L Hct 34.6 L MCV 84.6 MCH 26.9 MCHC 31.8 L RDW 15.4 H Plt Count 259 MPV 9.2 Immature Gran % (Auto) 0.3 Neut % (Auto) 66.5 Lymph % (Auto) 23.7 [place] % (Auto) 6.0 Eos % (Auto) 3.1 Baso % (Auto) 0.4 Lymph # (Auto) 1.63 [place] # (Auto) 0.4 Eos # (Auto) 0.2 Baso # (Auto) 0.0 Abs Immat Gran (auto) 0.02 Absolute Neuts (auto) 4.6 Absolute Nucleated RBC 0.000 Nucleated RBC % 0.0 Sodium 135 L Potassium 4.5 Chloride 104 Carbon Dioxide 23 Anion Gap 8 BUN 31 H Creatinine 2.01 H Estim Creat Clear Calc 22 Estimated GFR 32 L Glucose 115 H POC Capillary Glucose 203 H 112 H Calcium 8.2 L Magnesium 2.0 Total Bilirubin 0.4 AST 14 L ALT 8 Alkaline Phosphatase 86 Total Protein 7.0 Albumin 3.5 Procalcitonin Quality VTE Prophylaxis VTE prophylaxis: pharmacologic ordered
[2024-09-06 12:08] LABS: Glucose Point of Care 174 mg/dl (65-105)
[2024-09-06 17:03] LABS: Glucose Point of Care 132 mg/dl (65-105)
[2024-09-06 17:21] VITALS: BP 119/73; PULSE 86; RESP 18; TEMP 36.4; O2SAT 100
[2024-09-06 20:00] VITALS: BP 168/110; PULSE 94; PULSE 96; RESP 17; TEMP 36.7; O2SAT 98
[2024-09-06] MEDS: cefTRIAXone 2 GM/NS 100 ML 2 GM/100 ML BAG IVPB (20:48)
[2024-09-06] MEDS: AZITHROMYCIN 250 MG TABLET 500 MG PO (20:51)
[2024-09-06] MEDS: diphenhydrAMINE HCl CAP 25 MG CAPSULE PO (20:55)
[2024-09-06] MEDS: INSULIN GLARGINE (*BKC) 100 UNITS/ML SUB-Q (21:03)
[2024-09-06 21:18] LABS: Glucose Point of Care 174 mg/dl (65-105)
[2024-09-07] VITALS (10 sets, daily range): BP systolic 144–209; BP diastolic 90–109; PULSE 70–93; RESP 12–20; TEMP 36.4–37.3; O2SAT 97–99
[2024-09-07] MEDS: hydrALAZINE HCL 20 MG/ML VIAL 10 MG IV PUSH (06:13)
[2024-09-07 07:03] LABS: Basophils Percent Auto 0.5 % (0.2-1.2); Eosinophils Absolute Auto 0.2 K/mm3 (0-0.3); Eosinophils Percent Auto 2.8 % (0-4.4); Hematocrit 35.8 % (42.0-52.0); Hemoglobin 11.3 g/dL (14.0-18.0); Immature Granulocyte Absolute 0.01 K/mm3 (0.00-0.031); Immature Granulocyte Percent A 0.2 % (0-0.5); Lymphocytes Absolute Auto 1.44 K/mm3 (0.9-3.2); Mean Corpuscular HGB Conc 31.6 g/dl (32-36); Mean Corpuscular Volume 85.4 fl (80-100); Mean Platelet Volume 9.7 fl (7.4-10.4); Monocytes Absolute Auto 0.4 K/mm3 (0.1-0.6); Monocytes Percent Auto 6.7 % (2.6-8.5); Neutrophils Absolute Auto 4.4 K/mm3 (1.3-6.7); Neutrophils Percent Auto 67.8 % (45.5-73.1); Platelet Count Result 265 k/mm3 (150-375); Red Blood Count 4.19 M/mm3 (4.6-6.20); Red Cell Distribution Width 15.7 % (11.5-14.5); White Blood Count 6.5 K/mm3 (4.5-10.0)
[2024-09-07 07:10] LABS: Alanine Aminotransferase 8 U/L (6-50); Albumin Level 3.5 g/dL (3.5-5.1); Alkaline Phosphatase 88 U/L (38-126); Anion Gap 10 mmol/L (4-12); Aspartate Amino Transferase 15 U/L (17-59); Bilirubin,Total 0.3 mg/dL (0.2-1.3); Blood Urea Nitrogen 34 mg/dL (9-20); Calcium 8.2 mg/dL (8.4-10.2); Carbon Dioxide 25 mmol/L (22-30); Chloride 102 mmol/L (98-107); Estimated CRCL calculation 22 ml/min; Estimated Glomerular Filt Rate 31; Glucose 115 mg/dL (65-110); Potassium 4.6 mmol/L (3.4-5.0); Sodium 137 mmol/L (137-145)
[2024-09-07 07:55] LABS: Glucose Point of Care 144 mg/dl (65-105)
[2024-09-07] MEDS: APIXABAN 5 MG TABLET PO ×2 (09:11→22:03)
[2024-09-07] MEDS: METOPROLOL SUCCINATE EXT REL 25 MG TABCR PO (09:11)
[2024-09-07] MEDS: FLUoxetine HCL 20 MG CAPSULE 40 MG PO (09:11)
[2024-09-07] MEDS: SODIUM BICARBONATE TAB 650 MG TABLET PO ×2 (09:11→16:15)
[2024-09-07] MEDS: TAMSULOSIN HCL 0.4 MG CAPSULE PO (09:11)
[2024-09-07] MEDS: FAMOTIDINE 20 MG TABLET PO (09:11)
--- NOTE | 2024-09-07 11:54 | P.PNIM_ITS ---
Progress Note: A&P Assessment and Plan (1) Pneumonia: Qualifiers: Laterality: bilateral Lung location: unspecified part of lung Pneumonia type: due to unspecified organism Qualified Code(s): J18.9 - Pneumonia, unspecified organism Code(s): J18.9 - Pneumonia, unspecified organism Status: Acute Assessment and Plan: * Chest x-ray revealed worsened airspace opacities in the right mid lung zone likely changes of radiation therapy. * Recent CT chest performed on 08/22/2024 with since of consolidation peripherally in the right lung which has most suggestive of postradiation change. 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 * Azithromycin 500 mg PO HS and Ceftriaxone 2 gram IVPB daily. * MRSA swab negative and Vancomycin discontinued. * Incentive spirometer. * Blood cultures no growth to date. * PT/OT (2) Hypertension: Code(s): I10 - Essential (primary) hypertension Status: Chronic Assessment and Plan: * Blood pressure elevated overnight at 209/109 received Hydralazine 10 mg ivp x1 with blood pressure improving to 209/109. * Blood pressure when rounding was 157/104, started on Hydralazine 10 mg PO QID. * Continue Metoprolol 25 mg PO qam. (3) Paroxysmal atrial fibrillation: Code(s): I48.0 - Paroxysmal atrial fibrillation Status: Acute Assessment and Plan: * Apixaban 5 mg PO q 12 * Metoprolol 25 mg PO qam. (4) GERD (gastroesophageal reflux disease): Code(s): K21.9 - Gastro-esophageal reflux disease without esophagitis Status: Acute Assessment and Plan: * Famotidine 20 mg PO daily. (5) Chronic renal failure, stage 3 (moderate): Code(s): N18.30 - Chronic kidney disease, stage 3 unspecified Status: Acute Assessment and Plan: * BUN 34, Creatinine 2.05, and GFR 31. Creatinine at baseline. (6) Generalized weakness: Code(s): R53.1 - Weakness Status: Acute Assessment and Plan: * PT/OT (7) Recurrent falls: Code(s): R29.6 - Repeated falls Status: Acute Assessment and Plan: * This is a 83-year-old male who presents to the ED with weakness and frequent falls over past month he has had increased weakness unsteady gait and frequent falls. His legs give out on him no significant injury from falls reported. * PT/OT for strengthening and balance. Subjective Date/time seen: 09/07/24 11:54 Interval history: Patient sitting up in bed. Patient denies chest pain, palpitations, headache, dizziness, nausea, or vomiting. Review of Systems Review of Systems: All systems reviewed & are unremarkable except as noted in HPI and below Exam Const: General: comfortable and no acute distress Eyes: Sclera: sclerae normal Resp: Effort & Inspection: normal respiratory effort Auscultation: clear to auscultation bilaterally Cardio: Rate: regular rate Rhythm: regular rhythm Other: Telemetry SR 94 with multiform PVC's GI: GI Palp: Yes Soft to palpation Auscultation: normal bowel sounds Skin: General skin exam: no rashes or lesions noted Neuro: Speech: normal speech Extrem: General: no pedal edema Psych: Affect: normal affect Other: Alert and oriented to person and place which is baseline 2/2 hx of dementia. Follows all commands. Moving all extremities spontaneously. No focal deficits, speech is clear and fluent. Objective Data Vital Signs Vital Signs: Vital Signs - 24 hr 09/06/24 17:21 09/06/24 20:00 09/06/24 20:00 Temperature 97.5 F L 98.1 F Pulse Rate 86 96 96 Respiratory Rate 18 17 17 Blood Pressure 119/73 168/110 H Pulse Oximetry 100 98 98 Oxygen Delivery Room Air 09/06/24 20:00 09/07/24 00:00 09/07/24 00:00 Temperature 97.5 F L Pulse Rate 94 91 70 Respiratory Rate 12 Blood Pressure 150/93 H Pulse Oximetry 97 Oxygen Delivery 09/07/24 04:00 09/07/24 04:00 09/07/24 08:00 Temperature 98.0 F 98.7 F Pulse Rate 86 83 77 Respiratory Rate 16 20 Blood Pressure 209/109 H 168/96 H Pulse Oximetry 98 98 Oxygen Delivery 09/07/24 08:00 09/07/24 08:02 09/07/24 09:11 Temperature Pulse Rate 93 77 Respiratory Rate Blood Pressure Pulse Oximetry Oxygen Delivery Room Air Intake/Output Intake/Output: Intake & Output 09/04/24 09/05/24 09/06/24 09/07/24 23:59 23:59 23:59 23:59 Intake Total 1188 1580 936 Output Total 1000 650 Balance 1188 708 286 Meds/Results Medications: Active Medications Generic Name Dose Route Start Last Admin Trade Name Freq PRN Reason Stop Dose Admin Acetaminophen 650 mg 09/05/24 03:52 Acetaminophen 325 Mg Tablet PO BID PRN Pain 1-3 Hydrocodone Bitart/Acetaminophen 1 tab 09/05/24 03:52 Hydrocodone/Acetaminophen (*Crx) 10-325 Mg Tablet PO Q6H PRN pain 4-6 Alprazolam 2 mg 09/05/24 02:27 09/06/24 10:46 Alprazolam (*Crx) 0.5 Mg Tablet BY MOUTH 2 mg BID PRN Administration anxiety Apixaban 5 mg 09/05/24 09:00 09/07/24 09:11 Apixaban 5 Mg Tablet PO 5 mg Q12HR ROBY Administration Azithromycin 500 mg 09/05/24 21:00 09/06/24 20:51 Azithromycin 250 Mg Tablet PO 09/08/24 21:01 500 mg QHS ROBY Administration Diphenhydramine HCl 25 mg 09/05/24 04:30 09/06/24 20:55 Diphenhydramine Hcl Cap 25 Mg Capsule PO 25 mg Q6H PRN Administration Itching Docusate Sodium 100 mg 09/05/24 03:52 Docusate Sodium 100 Mg Capsule PO Q12H PRN Constipation Famotidine 20 mg 09/05/24 09:00 09/07/24 09:11 Famotidine 20 Mg Tablet PO 20 mg DAILY ROBY Administration Fluoxetine HCl 40 mg 09/05/24 09:00 09/07/24 09:11 Fluoxetine Hcl 20 Mg Capsule PO 40 mg DAILY ROBY Administration Ceftriaxone Sodium 2 gm in 100 mls @ 200 mls/hr 09/05/24 21:00 09/06/24 21:20 Rocephin 2 Gm/Ns 100 Ml IVPB Infused Q24H ROBY Infusion Insulin Glargine 5 units 09/05/24 21:00 09/06/24 21:03 Insulin Glargine (*Bkc) 100 Units/Ml SUB-Q 5 units QHS ROBY Administration Metoprolol Succinate 25 mg 09/05/24 09:00 09/07/24 09:11 Metoprolol Succinate Ext Rel 25 Mg Tabcr PO 25 mg QAM ROBY Administration Senna/Docusate Sodium 2 tab 09/05/24 03:52 Senna/Docusate Sodium Tablet PO BID PRN constipation Sodium Bicarbonate 650 mg 09/05/24 09:00 09/07/24 09:11 Sodium Bicarbonate Tab 650 Mg Tablet PO 650 mg BID ROBY Administration Tamsulosin HCl 0.4 mg 09/05/24 09:00 09/07/24 09:11 Tamsulosin Hcl 0.4 Mg Capsule PO 0.4 mg DAILY ROBY Administration Radiology Results: ITS Impressions Head CT 09/04/24 15:57 IMPRESSION: 1. 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 2. Stable moderate nonspecific cerebral white matter disease, which likely represents chronic small vessel ischemic disease. Chest X-Ray 09/04/24 16:09 IMPRESSION: 1. Worsened airspace opacities in right midlung zone, likely changes of radiation therapy. Labs Labs: Laboratory Results - last 24 hr 09/06/24 09/06/24 09/06/24 11:44 16:51 20:37 WBC RBC Hgb Hct MCV MCH MCHC RDW Plt Count MPV Immature Gran % (Auto) Neut % (Auto) Lymph % (Auto) [place] % (Auto) Eos % (Auto) Baso % (Auto) Lymph # (Auto) [place] # (Auto) Eos # (Auto) Baso # (Auto) Abs Immat Gran (auto) Absolute Neuts (auto) Absolute Nucleated RBC Nucleated RBC % Sodium Potassium Chloride Carbon Dioxide Anion Gap BUN Creatinine Estim Creat Clear Calc Estimated GFR Glucose POC Capillary Glucose 174 H 132 H 174 H Calcium Total Bilirubin AST ALT Alkaline Phosphatase Total Protein Albumin 09/07/24 09/07/24 06:08 07:45 WBC 6.5 RBC 4.19 L Hgb 11.3 L Hct 35.8 L MCV 85.4 MCH 27.0 MCHC 31.6 L RDW 15.7 H Plt Count 265 MPV 9.7 Immature Gran % (Auto) 0.2 Neut % (Auto) 67.8 Lymph % (Auto) 22.0 [place] % (Auto) 6.7 Eos % (Auto) 2.8 Baso % (Auto) 0.5 Lymph # (Auto) 1.44 [place] # (Auto) 0.4 Eos # (Auto) 0.2 Baso # (Auto) 0.0 Abs Immat Gran (auto) 0.01 Absolute Neuts (auto) 4.4 Absolute Nucleated RBC 0.000 Nucleated RBC % 0.0 Sodium 137 Potassium 4.6 Chloride 102 Carbon Dioxide 25 Anion Gap 10 BUN 34 H Creatinine 2.05 H Estim Creat Clear Calc 22 Estimated GFR 31 L Glucose 115 H POC Capillary Glucose 144 H Calcium 8.2 L Total Bilirubin 0.3 AST 15 L ALT 8 Alkaline Phosphatase 88 Total Protein 7.0 Albumin 3.5 Quality VTE Prophylaxis VTE prophylaxis: pharmacologic ordered
[2024-09-07 11:59] LABS: Glucose Point of Care 187 mg/dl (65-105)
[2024-09-07] MEDS: hydrALAZINE 10 MG TABLET PO ×3 (12:04→22:03)
[2024-09-07 13:01] LABS: Glucose Point of Care 174 mg/dl (65-105)
[2024-09-07 16:30] LABS: Glucose Point of Care 150 mg/dl (65-105)
[2024-09-07] MEDS: MECLIZINE HCL 25 MG TABLET PO (17:03)
[2024-09-07 20:26] LABS: Glucose Point of Care 268 mg/dl (65-105)
[2024-09-07] MEDS: cefTRIAXone 2 GM/NS 100 ML 2 GM/100 ML BAG IVPB (22:03)
[2024-09-07] MEDS: AZITHROMYCIN 250 MG TABLET 500 MG PO (22:03)
[2024-09-07] MEDS: INSULIN GLARGINE (*BKC) 100 UNITS/ML SUB-Q (22:04)
[2024-09-08] VITALS (8 sets, daily range): BP systolic 111–191; BP diastolic 71–105; PULSE 65–91; RESP 16–20; TEMP 36.3–37.1; O2SAT 98–99
[2024-09-08 04:19] LABS: Basophils Percent Auto 0.5 % (0.2-1.2); Eosinophils Absolute Auto 0.1 K/mm3 (0-0.3); Eosinophils Percent Auto 2.2 % (0-4.4); Hematocrit 35.1 % (42.0-52.0); Hemoglobin 11.3 g/dL (14.0-18.0); Immature Granulocyte Absolute 0.01 K/mm3 (0.00-0.031); Immature Granulocyte Percent A 0.2 % (0-0.5); Lymphocytes Absolute Auto 1.76 K/mm3 (0.9-3.2); Mean Corpuscular HGB Conc 32.2 g/dl (32-36); Mean Corpuscular Hemoglobin 27.5 pg (26-34); Mean Corpuscular Volume 85.4 fl (80-100); Mean Platelet Volume 9.8 fl (7.4-10.4); Monocytes Absolute Auto 0.5 K/mm3 (0.1-0.6); Monocytes Percent Auto 7.2 % (2.6-8.5); Neutrophils Absolute Auto 4.1 K/mm3 (1.3-6.7); Neutrophils Percent Auto 62.9 % (45.5-73.1); Platelet Count Result 252 k/mm3 (150-375); Red Blood Count 4.11 M/mm3 (4.6-6.20); Red Cell Distribution Width 15.6 % (11.5-14.5); White Blood Count 6.5 K/mm3 (4.5-10.0)
[2024-09-08 04:30] LABS: Alanine Aminotransferase 9 U/L (6-50); Albumin Level 3.5 g/dL (3.5-5.1); Alkaline Phosphatase 74 U/L (38-126); Anion Gap 6 mmol/L (4-12); Aspartate Amino Transferase 17 U/L (17-59); Bilirubin,Total 0.5 mg/dL (0.2-1.3); Blood Urea Nitrogen 35 mg/dL (9-20); Calcium 8.2 mg/dL (8.4-10.2); Carbon Dioxide 25 mmol/L (22-30); Chloride 103 mmol/L (98-107); Estimated CRCL calculation 24 ml/min; Estimated Glomerular Filt Rate 34; Glucose 130 mg/dL (65-110); Potassium 4.8 mmol/L (3.4-5.0); Sodium 134 mmol/L (137-145)
[2024-09-08] MEDS: hydrALAZINE HCL 20 MG/ML VIAL 10 MG IV PUSH (04:43)
[2024-09-08] MEDS: APIXABAN 5 MG TABLET PO ×2 (08:58→21:38)
[2024-09-08] MEDS: FLUoxetine HCL 20 MG CAPSULE 40 MG PO (08:58)
[2024-09-08] MEDS: METOPROLOL SUCCINATE EXT REL 25 MG TABCR PO (08:58)
[2024-09-08] MEDS: hydrALAZINE 10 MG TABLET PO ×4 (08:59→21:38)
[2024-09-08] MEDS: SODIUM BICARBONATE TAB 650 MG TABLET PO ×2 (08:59→16:49)
[2024-09-08] MEDS: TAMSULOSIN HCL 0.4 MG CAPSULE PO (08:59)
[2024-09-08] MEDS: FAMOTIDINE 20 MG TABLET PO (08:59)
[2024-09-08 09:13] LABS: Glucose Point of Care 180 mg/dl (65-105)
--- NOTE | 2024-09-08 10:11 | P.PNIM_ITS ---
Progress Note: A&P Assessment and Plan (1) Pneumonia: Qualifiers: Laterality: bilateral Lung location: unspecified part of lung Pneumonia type: due to unspecified organism Qualified Code(s): J18.9 - Pneumonia, unspecified organism Code(s): J18.9 - Pneumonia, unspecified organism Status: Acute Assessment and Plan: * Chest x-ray revealed worsened airspace opacities in the right mid lung zone likely changes of radiation therapy. * Recent CT chest performed on 08/22/2024 with since of consolidation peripherally in the right lung which has most suggestive of postradiation change. 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 * Azithromycin 500 mg PO HS and Ceftriaxone 2 gram IVPB daily. * MRSA swab negative and Vancomycin discontinued. * Incentive spirometer. * Blood cultures no growth to date. * PT/OT (2) Hypertension: Code(s): I10 - Essential (primary) hypertension Status: Chronic Assessment and Plan: * Blood pressure elevated on 09/07/24 04:00 at 209/109 received Hydralazine 10 mg ivp x1 with blood pressure improving to 168/96. * Started on Hydralazine 10 mg PO QID on 09/07, blood pressure today 133/95. * Continue Metoprolol 25 mg PO qam. (3) Paroxysmal atrial fibrillation: Code(s): I48.0 - Paroxysmal atrial fibrillation Status: Acute Assessment and Plan: * Apixaban 5 mg PO q 12 * Metoprolol 25 mg PO qam. (4) Nausea: Code(s): R11.0 - Nausea Status: Acute Assessment and Plan: * Added Compazine 10 mg PO q 6 PRN. (5) Chronic renal failure, stage 3 (moderate): Code(s): N18.30 - Chronic kidney disease, stage 3 unspecified Status: Acute Assessment and Plan: * BUN 35, Creatinine 1.87, and GFR 34. Creatinine at baseline. (6) Generalized weakness: Code(s): R53.1 - Weakness Status: Acute Assessment and Plan: * PT/OT (7) Recurrent falls: Code(s): R29.6 - Repeated falls Status: Acute Assessment and Plan: * This is a 83-year-old male who presents to the ED with weakness and frequent falls over past month he has had increased weakness unsteady gait and frequent falls. His legs give out on him no significant injury from falls reported. * PT/OT for strengthening and balance. (8) Anxiety: Code(s): F41.9 - Anxiety disorder, unspecified Status: Chronic Assessment and Plan: * Alprazolam 2 mg PO BID PRN. (9) GERD (gastroesophageal reflux disease): Code(s): K21.9 - Gastro-esophageal reflux disease without esophagitis Status: Acute Assessment and Plan: * Famotidine 20 mg PO daily. Subjective Date/time seen: 09/08/24 10:11 Interval history: Patient reports nausea and feeling anxious this morning. Patient did not feel like eating breakfast. Patient denies chest pain, palpitations, headache, dizziness, nausea, or vomiting. Review of Systems Review of Systems: All systems reviewed & are unremarkable except as noted in HPI and below Exam Const: General: no acute distress Eyes: Sclera: sclerae normal Resp: Effort & Inspection: normal respiratory effort Auscultation: clear to auscultation bilaterally Cardio: Rate: regular rate Rhythm: regular rhythm Other: Telemetry SR 93 with multiform PVC's GI: GI Palp: Yes Soft to palpation Auscultation: normal bowel sounds Skin: General skin exam: no rashes or lesions noted Neuro: Speech: normal speech Extrem: General: no pedal edema Psych: Other: Alert and oriented to person and place which is baseline 2/2 hx of dementia. Follows all commands. Moving all extremities spontaneously. No focal deficits, speech is clear and fluent. Objective Data Vital Signs Vital Signs: Vital Signs - 24 hr 09/07/24 12:00 09/07/24 12:00 09/07/24 14:53 Temperature 99.2 F Pulse Rate 76 92 Respiratory Rate 18 Blood Pressure 157/104 H Pulse Oximetry 98 Oxygen Delivery Room Air 09/07/24 16:00 09/07/24 16:00 09/07/24 17:00 Temperature 97.7 F Pulse Rate 92 77 Respiratory Rate 18 Blood Pressure 146/106 H 172/96 H Pulse Oximetry 98 Oxygen Delivery 09/07/24 20:00 09/07/24 20:00 09/07/24 21:52 Temperature 97.5 F L Pulse Rate 82 84 Respiratory Rate 18 Blood Pressure 144/90 H Pulse Oximetry 99 Oxygen Delivery Room Air 09/07/24 23:33 09/08/24 00:00 09/08/24 04:00 Temperature 97.9 F 98.2 F Pulse Rate 71 74 83 Respiratory Rate 16 16 Blood Pressure 163/104 H 191/102 H Pulse Oximetry 99 98 Oxygen Delivery 09/08/24 04:00 09/08/24 05:52 09/08/24 07:54 Temperature Pulse Rate 71 Respiratory Rate Blood Pressure 172/95 H Pulse Oximetry Oxygen Delivery Room Air 09/08/24 08:58 Temperature Pulse Rate 71 Respiratory Rate Blood Pressure Pulse Oximetry Oxygen Delivery Intake/Output Intake/Output: Intake & Output 09/05/24 09/06/24 09/07/24 09/08/24 23:59 23:59 23:59 23:59 Intake Total 1188 1580 3094 350 Output Total 1000 1700 750 Balance 4856 591 2181 -400 Meds/Results Medications: Active Medications Generic Name Dose Route Start Last Admin Trade Name Freq PRN Reason Stop Dose Admin Acetaminophen 650 mg 09/05/24 03:52 Acetaminophen 325 Mg Tablet PO BID PRN Pain 1-3 Hydrocodone Bitart/Acetaminophen 1 tab 09/05/24 03:52 Hydrocodone/Acetaminophen (*Crx) 10-325 Mg Tablet PO Q6H PRN pain 4-6 Alprazolam 2 mg 09/05/24 02:27 09/06/24 10:46 Alprazolam (*Crx) 0.5 Mg Tablet BY MOUTH 2 mg BID PRN Administration anxiety Amoxicillin/Clavulanate Potassium 1 tablet 09/08/24 21:00 Amoxicillin/Clavulanate K 500-125 Mg Tab PO 09/10/24 09:01 Q12HR ROBY Apixaban 5 mg 09/05/24 09:00 09/08/24 08:58 Apixaban 5 Mg Tablet PO 5 mg Q12HR ROBY Administration Azithromycin 500 mg 09/05/24 21:00 09/07/24 22:03 Azithromycin 250 Mg Tablet PO 09/08/24 21:01 500 mg QHS ROBY Administration Diphenhydramine HCl 25 mg 09/05/24 04:30 09/06/24 20:55 Diphenhydramine Hcl Cap 25 Mg Capsule PO 25 mg Q6H PRN Administration Itching Docusate Sodium 100 mg 09/05/24 03:52 Docusate Sodium 100 Mg Capsule PO Q12H PRN Constipation Famotidine 20 mg 01/14/25 09:00 09/08/24 08:59 Famotidine 20 Mg Tablet PO 20 mg DAILY ROBY Administration Fluoxetine HCl 40 mg 09/05/24 09:00 09/08/24 08:58 Fluoxetine Hcl 20 Mg Capsule PO 40 mg DAILY ROBY Administration Hydralazine HCl 10 mg 09/07/24 17:00 09/08/24 08:59 Hydralazine 10 Mg Tablet PO 10 mg QID ROBY Administration Insulin Glargine 5 units 09/05/24 21:00 09/07/24 22:04 Insulin Glargine (*Bkc) 100 Units/Ml SUB-Q 5 units QHS ROBY Administration Meclizine HCl 25 mg 09/07/24 16:52 09/07/24 17:03 Meclizine Hcl 25 Mg Tablet PO 25 mg BID PRN Administration Dizziness Metoprolol Succinate 25 mg 09/05/24 09:00 09/08/24 08:58 Metoprolol Succinate Ext Rel 25 Mg Tabcr PO 25 mg QAM ROBY Administration Senna/Docusate Sodium 2 tab 09/05/24 03:52 Senna/Docusate Sodium Tablet PO BID PRN constipation Sodium Bicarbonate 650 mg 09/05/24 09:00 09/08/24 08:59 Sodium Bicarbonate Tab 650 Mg Tablet PO 650 mg BID ROBY Administration Tamsulosin HCl 0.4 mg 09/05/24 09:00 09/08/24 08:59 Tamsulosin Hcl 0.4 Mg Capsule PO 0.4 mg DAILY ROBY Administration Radiology Results: ITS Impressions Head CT 09/04/24 15:57 IMPRESSION: 1. 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 2. Stable moderate nonspecific cerebral white matter disease, which likely represents chronic small vessel ischemic disease. Chest X-Ray 09/04/24 16:09 IMPRESSION: 1. Worsened airspace opacities in right midlung zone, likely changes of radiation therapy. Labs Labs: Laboratory Results - last 24 hr 09/07/24 09/07/24 09/07/24 11:57 12:59 16:23 WBC RBC Hgb Hct MCV MCH MCHC RDW Plt Count MPV Immature Gran % (Auto) Neut % (Auto) Lymph % (Auto) [place] % (Auto) Eos % (Auto) Baso % (Auto) Lymph # (Auto) [place] # (Auto) Eos # (Auto) Baso # (Auto) Abs Immat Gran (auto) Absolute Neuts (auto) Absolute Nucleated RBC Nucleated RBC % Sodium Potassium Chloride Carbon Dioxide Anion Gap BUN Creatinine Estim Creat Clear Calc Estimated GFR Glucose POC Capillary Glucose 187 H 174 H 150 H Calcium Total Bilirubin AST ALT Alkaline Phosphatase Total Protein Albumin 09/07/24 09/08/24 09/08/24 19:55 04:04 08:06 WBC 6.5 RBC 4.11 L Hgb 11.3 L Hct 35.1 L MCV 85.4 MCH 27.5 MCHC 32.2 RDW 15.6 H Plt Count 252 MPV 9.8 Immature Gran % (Auto) 0.2 Neut % (Auto) 62.9 Lymph % (Auto) 27.0 [place] % (Auto) 7.2 Eos % (Auto) 2.2 Baso % (Auto) 0.5 Lymph # (Auto) 1.76 [place] # (Auto) 0.5 Eos # (Auto) 0.1 Baso # (Auto) 0.0 Abs Immat Gran (auto) 0.01 Absolute Neuts (auto) 4.1 Absolute Nucleated RBC 0.000 Nucleated RBC % 0.0 Sodium 134 L Potassium 4.8 Chloride 103 Carbon Dioxide 25 Anion Gap 6 BUN 35 H Creatinine 1.87 H Estim Creat Clear Calc 24 Estimated GFR 34 L Glucose 130 H POC Capillary Glucose 268 H 180 H Calcium 8.2 L Total Bilirubin 0.5 AST 17 ALT 9 Alkaline Phosphatase 74 Total Protein 7.0 Albumin 3.5 Quality VTE Prophylaxis VTE prophylaxis: pharmacologic ordered
[2024-09-08] MEDS: ALPRAZolam (*CRX) 0.5 MG TABLET 2 MG BY MOUTH (10:17)
[2024-09-08] MEDS: PROCHLORPERAZINE EDISYLATE 10 MG/2 ML VIAL (10:22)
--- NOTE | 2024-09-08 11:43 | PCPTNOTE ---
Patient declined PT at this time stating he was not feeling well due to nausea.
[2024-09-08 12:15] LABS: Glucose Point of Care 236 mg/dl (65-105)
--- NOTE | 2024-09-08 14:36 | PCPTNOTE ---
Returned to see patient this afternoon for PT, however patient refused. Patient states he is feeling slightly better and was able to eat a few bites of lunch without feeling too nauseated. Patient states I won't be able to do anything today. I will try tomorrow.
[2024-09-08 16:56] LABS: Glucose Point of Care 197 mg/dl (65-105)
[2024-09-08 21:17] LABS: Glucose Point of Care 191 mg/dl (65-105)
[2024-09-08] MEDS: AZITHROMYCIN 250 MG TABLET 500 MG PO (21:38)
[2024-09-08] MEDS: AMOXICILLIN/CLAVULANATE K 500-125 MG TAB 1 TABLET PO (21:38)
[2024-09-08] MEDS: INSULIN GLARGINE (*BKC) 100 UNITS/ML SUB-Q (21:39)
[2024-09-09] VITALS (7 sets, daily range): BP systolic 150–178; BP diastolic 82–97; PULSE 67–86; RESP 16–20; TEMP 36.2–36.7; O2SAT 98–100
[2024-09-09 07:41] LABS: Basophils Percent Auto 0.3 % (0.2-1.2); Eosinophils Absolute Auto 0.1 K/mm3 (0-0.3); Eosinophils Percent Auto 1.3 % (0-4.4); Hematocrit 34.7 % (42.0-52.0); Hemoglobin 11.1 g/dL (14.0-18.0); Immature Granulocyte Absolute 0.01 K/mm3 (0.00-0.031); Immature Granulocyte Percent A 0.2 % (0-0.5); Lymphocytes Percent Auto 21.4 % (18.3-44.2); Mean Corpuscular Hemoglobin 27.1 pg (26-34); Mean Corpuscular Volume 84.8 fl (80-100); Mean Platelet Volume 9.8 fl (7.4-10.4); Monocytes Absolute Auto 0.4 K/mm3 (0.1-0.6); Monocytes Percent Auto 6.1 % (2.6-8.5); Neutrophils Absolute Auto 4.3 K/mm3 (1.3-6.7); Neutrophils Percent Auto 70.7 % (45.5-73.1); Platelet Count Result 253 k/mm3 (150-375); Red Blood Count 4.09 M/mm3 (4.6-6.20); Red Cell Distribution Width 15.8 % (11.5-14.5); White Blood Count 6.1 K/mm3 (4.5-10.0)
[2024-09-09 07:48] LABS: Glucose Point of Care 127 mg/dl (65-105)
[2024-09-09 08:03] LABS: Alanine Aminotransferase 9 U/L (6-50); Albumin Level 3.7 g/dL (3.5-5.1); Alkaline Phosphatase 77 U/L (38-126); Anion Gap 7 mmol/L (4-12); Aspartate Amino Transferase 16 U/L (17-59); Bilirubin,Total 0.5 mg/dL (0.2-1.3); Blood Urea Nitrogen 34 mg/dL (9-20); Calcium 8.9 mg/dL (8.4-10.2); Carbon Dioxide 27 mmol/L (22-30); Chloride 101 mmol/L (98-107); Estimated CRCL calculation 23 ml/min; Estimated Glomerular Filt Rate 34; Glucose 122 mg/dL (65-110); Potassium 4.3 mmol/L (3.4-5.0); Sodium 135 mmol/L (137-145)
[2024-09-09] MEDS: SODIUM BICARBONATE TAB 650 MG TABLET PO ×2 (08:37→17:00)
[2024-09-09] MEDS: FAMOTIDINE 20 MG TABLET PO (08:37)
[2024-09-09] MEDS: FLUoxetine HCL 20 MG CAPSULE 40 MG PO (08:37)
[2024-09-09] MEDS: APIXABAN 5 MG TABLET PO (08:37)
[2024-09-09] MEDS: AMOXICILLIN/CLAVULANATE K 500-125 MG TAB 1 TABLET PO (08:37)
[2024-09-09] MEDS: hydrALAZINE 10 MG TABLET PO ×3 (08:37→17:00)
[2024-09-09] MEDS: TAMSULOSIN HCL 0.4 MG CAPSULE PO (08:37)
[2024-09-09] MEDS: METOPROLOL SUCCINATE EXT REL 25 MG TABCR PO (08:37)
[2024-09-09] MEDS: ALPRAZolam (*CRX) 0.5 MG TABLET 2 MG BY MOUTH ×2 (09:01→17:00)
--- NOTE | 2024-09-09 11:36 | P.PNIM_ITS ---
Subjective Date/time seen: 09/09/24 11:36 Review of Systems Review of Systems: All systems reviewed & are unremarkable except as noted in HPI and below Objective Data Vital Signs Vital Signs: Vital Signs - 24 hr 09/08/24 12:00 09/08/24 12:00 09/08/24 16:00 Temperature 97.3 F L 97.5 F L Pulse Rate 81 82 74 Respiratory Rate 18 18 Blood Pressure 133/95 H 111/83 Pulse Oximetry 99 98 Oxygen Delivery 09/08/24 16:00 09/08/24 20:00 09/08/24 20:00 Temperature Pulse Rate 70 65 Respiratory Rate Blood Pressure Pulse Oximetry Oxygen Delivery Room Air 09/08/24 20:00 09/09/24 00:00 09/09/24 00:55 Temperature 98.6 F 97.5 F L Pulse Rate 89 67 69 Respiratory Rate 20 16 Blood Pressure 120/71 161/97 H Pulse Oximetry 98 99 Oxygen Delivery 09/09/24 04:00 09/09/24 05:20 09/09/24 08:00 Temperature 98.1 F 97.1 F L Pulse Rate 86 68 70 Respiratory Rate 20 18 Blood Pressure 178/95 H 160/94 H Pulse Oximetry 100 98 Oxygen Delivery Intake/Output Intake/Output: Intake & Output 09/06/24 09/07/24 09/08/24 09/09/24 23:59 23:59 23:59 23:59 Intake Total 1580 3094 1948 390 Output Total 1000 1700 1550 725 Balance 580 1394 398 -335 Meds/Results Medications: Active Medications Generic Name Dose Route Start Last Admin Trade Name Lauren PRN Reason Stop Dose Admin Acetaminophen 650 mg 09/05/24 03:52 Acetaminophen 325 Mg Tablet PO BID PRN Pain 1-3 Hydrocodone Bitart/Acetaminophen 1 tab 09/05/24 03:52 Hydrocodone/Acetaminophen (*Crx) 10-325 Mg Tablet PO Q6H PRN pain 4-6 Alprazolam 2 mg 09/05/24 02:27 09/09/24 09:01 Alprazolam (*Crx) 0.5 Mg Tablet BY MOUTH 2 mg BID PRN Administration anxiety Amoxicillin/Clavulanate Potassium 1 tablet 09/08/24 21:00 09/09/24 08:37 Amoxicillin/Clavulanate K 500-125 Mg Tab PO 09/10/24 09:01 1 tablet Q12HR ROBY Administration Apixaban 5 mg 09/05/24 09:00 09/09/24 08:37 Apixaban 5 Mg Tablet PO 5 mg Q12HR ROBY Administration Diphenhydramine HCl 25 mg 09/05/24 04:30 09/06/24 20:55 Diphenhydramine Hcl Cap 25 Mg Capsule PO 25 mg Q6H PRN Administration Itching Docusate Sodium 100 mg 09/05/24 03:52 Docusate Sodium 100 Mg Capsule PO Q12H PRN Constipation Famotidine 20 mg 09/05/24 09:00 09/09/24 08:37 Famotidine 20 Mg Tablet PO 20 mg DAILY ROBY Administration Fluoxetine HCl 40 mg 09/05/24 09:00 09/09/24 08:37 Fluoxetine Hcl 20 Mg Capsule PO 40 mg DAILY ROBY Administration Hydralazine HCl 10 mg 09/07/24 17:00 09/09/24 08:37 Hydralazine 10 Mg Tablet PO 10 mg QID [facility] Administration Insulin Glargine 5 units 09/05/24 21:00 09/08/24 21:39 Insulin Glargine (*Bkc) 100 Units/Ml SUB-Q 5 units QHS [facility] Administration Meclizine HCl 25 mg 09/07/24 16:52 09/07/24 17:03 Meclizine Hcl 25 Mg Tablet PO 25 mg BID PRN Administration Dizziness Metoprolol Succinate 25 mg 09/05/24 09:00 09/09/24 08:37 Metoprolol Succinate Ext Rel 25 Mg Tabcr PO 25 mg QAM [facility] Administration Prochlorperazine Edisylate 10 mg 09/08/24 10:11 Prochlorperazine Edisylate 10 Mg/2 Ml Vial IV PUSH Q6H PRN Nausea And Vomiting Senna/Docusate Sodium 2 tab 09/05/24 03:52 Senna/Docusate Sodium Tablet PO BID PRN constipation Sodium Bicarbonate 650 mg 09/05/24 09:00 09/09/24 08:37 Sodium Bicarbonate Tab 650 Mg Tablet PO 650 mg BID [facility] Administration Tamsulosin HCl 0.4 mg 09/05/24 09:00 09/09/24 08:37 Tamsulosin Hcl 0.4 Mg Capsule PO 0.4 mg DAILY ROBY Administration Radiology Results: ITS Impressions Head CT 09/04/24 15:57 IMPRESSION: 1. 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 2. Stable moderate nonspecific cerebral white matter disease, which likely represents chronic small vessel ischemic disease. Chest X-Ray 09/04/24 16:09 IMPRESSION: 1. Worsened airspace opacities in right midlung zone, likely changes of radiation therapy. Labs Labs: Laboratory Results - last 24 hr 09/08/24 09/08/24 09/08/24 12:07 16:52 21:13 WBC RBC Hgb Hct MCV MCH MCHC RDW Plt Count MPV Immature Gran % (Auto) Neut % (Auto) Lymph % (Auto) [place] % (Auto) Eos % (Auto) Baso % (Auto) Lymph # (Auto) [place] # (Auto) Eos # (Auto) Baso # (Auto) Abs Immat Gran (auto) Absolute Neuts (auto) Absolute Nucleated RBC Nucleated RBC % Sodium Potassium Chloride Carbon Dioxide Anion Gap BUN Creatinine Estim Creat Clear Calc Estimated GFR Glucose POC Capillary Glucose 236 H 197 H 191 H Calcium Total Bilirubin AST ALT Alkaline Phosphatase Total Protein Albumin 09/09/24 09/09/24 07:12 07:37 WBC 6.1 RBC 4.09 L Hgb 11.1 L Hct 34.7 L MCV 84.8 MCH 27.1 MCHC 32.0 RDW 15.8 H Plt Count 253 MPV 9.8 Immature Gran % (Auto) 0.2 Neut % (Auto) 70.7 Lymph % (Auto) 21.4 [place] % (Auto) 6.1 Eos % (Auto) 1.3 Baso % (Auto) 0.3 Lymph # (Auto) 1.30 [place] # (Auto) 0.4 Eos # (Auto) 0.1 Baso # (Auto) 0.0 Abs Immat Gran (auto) 0.01 Absolute Neuts (auto) 4.3 Absolute Nucleated RBC 0.000 Nucleated RBC % 0.0 Sodium 135 L Potassium 4.3 Chloride 101 Carbon Dioxide 27 Anion Gap 7 BUN 34 H Creatinine 1.89 H Estim Creat Clear Calc 23 Estimated GFR 34 L Glucose 122 H POC Capillary Glucose 127 H Calcium 8.9 Total Bilirubin 0.5 AST 16 L ALT 9 Alkaline Phosphatase 77 Total Protein 7.0 Albumin 3.7
[2024-09-09 11:47] LABS: Glucose Point of Care 132 mg/dl (65-105)
--- NOTE | 2024-09-09 14:21 | P.DS_ITS ---
DS: Admitting Diagnosis Discharge Date 09/09/2024 Admitting Diagnosis Weakness, frequent falls DS: Discharge Diagnosis Discharge Diagnosis (1) Pneumonia: Qualifiers: Laterality: bilateral Lung location: unspecified part of lung Pneumonia type: due to unspecified organism Qualified Code(s): J18.9 - Pneumonia, unspecified organism Code(s): J18.9 - Pneumonia, unspecified organism Status: Acute (2) Hypertension: Code(s): I10 - Essential (primary) hypertension Status: Chronic (3) Paroxysmal atrial fibrillation: Code(s): I48.0 - Paroxysmal atrial fibrillation Status: Acute (4) Nausea: Code(s): R11.0 - Nausea Status: Acute (5) Chronic renal failure, stage 3 (moderate): Code(s): N18.30 - Chronic kidney disease, stage 3 unspecified Status: Acute (6) Generalized weakness: Code(s): R53.1 - Weakness Status: Acute (7) Recurrent falls: Code(s): R29.6 - Repeated falls Status: Acute (8) Anxiety: Code(s): F41.9 - Anxiety disorder, unspecified Status: Chronic (9) GERD (gastroesophageal reflux disease): Code(s): K21.9 - Gastro-esophageal reflux disease without esophagitis Status: Acute DS: Summary Hospital Course Hospital Course: * Patient brought to the ER by daughter/POA that patient lives with. States over past 2 weeks - 1month, patient has had increased weakness, unsteady gait, frequent falls. Patient states his legs just give out on him. Denies any signficant injury from the recent falls. Unknown HI. Patient is on eliquis. Hx of AFIB. Denies any other complaints. Has previously been admitted to [facility] for rehab/PT and did very well with this. * EKG was obtained which revealed sinus rhythm rate of 85 beats per minute. No evidence of acute ischemia. EKG was independently interpreted by me and is currently pending official cardiology read. MRSA swab negative. * Laboratory results obtained revealing no acute process. Patient's creatinine noted to be 2.03 which is around patient's baseline secondary to history of chronic kidney disease. * Recent CT chest performed on 08/22/2024 with since of consolidation peripherally in the right lung which has most suggestive of postradiation change. 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 * Imaging studies obtained included CXR which was independently interpreted by me revealing worsened airspace opacities in right midlung zone, likely changes of radiation therapy. CT brain without IV contrast was also obtained at this time and only interpreted by me revealin. 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 2. Stable moderate nonspecific cerebral white matter disease, which likely represents chronic small vessel ischemic disease. * At this time patient was started on IV vancomycin, cefepime and azithromycin to cover him for nosocomial pneumonia. Patient improved with IV antibiotics and transitioned to oral antibiotics. * Blood cultures no growth. * Patient received PT/OT. * Patient discharged to [facility] for therapy. Status at Discharge Functional status at discharge: uses cane/walker Overall status at discharge: patient is not back to baseline Time Spent with Patient Time attestation: Total time spent providing and/or coordinating discharge services: Time spent: Greater than 30 minutes Exam Const: General: comfortable and no acute distress Eyes: Sclera: sclerae normal Resp: Effort & Inspection: normal respiratory effort Auscultation: clear to auscultation bilaterally Cardio: Rate: regular rate Rhythm: regular rhythm Other: Telemetry- SR 73. GI: GI Palp: Yes Soft to palpation Auscultation: normal bowel sounds Other: Colostomy with pink stoma. Skin: General skin exam: no rashes or lesions noted Extrem: General: no pedal edema Psych: Affect: normal affect Other: Alert and oriented to person and place which is baseline 2/2 hx of dementia. Follows all commands. Moving all extremities spontaneously. No focal deficits, speech is clear and fluent. DS: Data Data Completed and Pending Labs on day of discharge: Labs from last 24 hours 09/09/24 09/09/24 09/09/24 11:45 07:37 07:12 WBC 6.1 RBC 4.09 L Hgb 11.1 L Hct 34.7 L MCV 84.8 MCH 27.1 MCHC 32.0 RDW 15.8 H Plt Count 253 MPV 9.8 Immature Gran % (Auto) 0.2 Neut % (Auto) 70.7 Lymph % (Auto) 21.4 [place] % (Auto) 6.1 Eos % (Auto) 1.3 Baso % (Auto) 0.3 Lymph # (Auto) 1.30 [place] # (Auto) 0.4 Eos # (Auto) 0.1 Baso # (Auto) 0.0 Abs Immat Gran (auto) 0.01 Absolute Neuts (auto) 4.3 Absolute Nucleated RBC 0.000 Nucleated RBC % 0.0 Sodium 135 L Potassium 4.3 Chloride 101 Carbon Dioxide 27 Anion Gap 7 BUN 34 H Creatinine 1.89 H Estim Creat Clear Calc 23 Estimated GFR 34 L Glucose 122 H POC Capillary Glucose 132 H 127 H Calcium 8.9 Total Bilirubin 0.5 AST 16 L ALT 9 Alkaline Phosphatase 77 Total Protein 7.0 Albumin 3.7 09/08/24 09/08/24 21:13 16:52 WBC RBC Hgb Hct MCV MCH MCHC RDW Plt Count MPV Immature Gran % (Auto) Neut % (Auto) Lymph % (Auto) [place] % (Auto) Eos % (Auto) Baso % (Auto) Lymph # (Auto) [place] # (Auto) Eos # (Auto) Baso # (Auto) Abs Immat Gran (auto) Absolute Neuts (auto) Absolute Nucleated RBC Nucleated RBC % Sodium Potassium Chloride Carbon Dioxide Anion Gap BUN Creatinine Estim Creat Clear Calc Estimated GFR Glucose POC Capillary Glucose 191 H 197 H Calcium Total Bilirubin AST ALT Alkaline Phosphatase Total Protein Albumin Preliminary micro results at discharge 09/04/24 23:57 Blood Culture - Preliminary Blood 09/04/24 23:58 Blood Culture - Preliminary Blood Discharge Plan Discharge Attending physician on discharge: Lexx Ferris Discharging Clinician: Cady Gill Anticipated Discharge Date/Time: 09/09/24 14:30 Patient Disposition: SNF Activity: may shower and other - see discharge instructions Diet: diabetic Discharge Instructions: * PT/OT for strengthening and balance. * Up with assistance. * Complete all doses of antibiotics. * Report to provider any fever, shortness of breath, sputum with color, or worsening cough. * Monitor blood pressures daily and record. Take recordings to primary office visit. Report if systolic >180. Thank you for entrusting [facility] with your healthcare! Patient Instructions: Heart Failure (DC), Fall Prevention for Older Adults (DC), Weakness (DC), Hypertension (DC), Pneumonia (DC) Patient Language: [place] Stand Alone Forms: General Discharge Information Follow-up/Referrals: Chapo Trammell MD [Primary Care Provider] - 1 Week Discharge Medications: New alprazolam 0.5 mg Tablet 2 mg BYMOUTH BID PRN (Reason: anxiety) Qty: 8 0RF amoxicillin-pot clavulanate [Augmentin] 500-125 mg Tablet 1 tablet PO Q12HR Qty: 2 0RF hydralazine 10 mg Tablet 10 mg PO QID Qty: 56 0RF Continued tamsulosin 0.4 mg capsule 0.4 mg PO DAILY ibuprofen 600 mg Tablet 600 mg PO TID PRN (Reason: Pain) acetaminophen 325 mg Capsule 650 mg PO BID PRN (Reason: Pain) metoprolol succinate 25 mg tablet extended release 24 hr 25 mg PO QAM fluoxetine 40 mg capsule 40 mg PO DAILY sodium bicarbonate 650 mg Tablet 650 mg PO BID Qty: 60 0RF docusate sodium 100 mg Capsule 100 mg PO Q12H PRN (Reason: Constipation) Qty: 60 0RF insulin glargine [Basaglar KwikPen U-100 Insulin] 100 unit/mL (3 mL) insulin pen 5 unit SUBCUT QHS Eliquis 5 mg tablet 5 mg PO Q12H alprazolam 2 mg tablet 2 mg PO BID PRN (Reason: panic attack(s)) sennosides-docusate sodium [Senokot-S] 8.6-50 mg Tablet 2 tab PO BID PRN (Reason: constipation) famotidine 20 mg tablet 20 mg PO DAILY Discontinued Eliquis 2.5 mg Tablet 5 mg PO BID hydrocodone-acetaminophen 10-325 mg tablet 1 tablet PO Q6H PRN (Reason: pain) Qty: 1 0RF alprazolam 2 mg tablet,disintegrating 2 mg PO BID PRN (Reason: anxiety) Levemir FlexPen 100 unit/mL (3 mL) insulin pen 5 unit SUBCUT HS Qty: 15 0RF Date of admission: 09/04/24 22:40 Primary Care Provider: hCapo Trammell Admitting Provider: Hetal Bernal V. Attending physician on admission: Hetal Bernal V. Condition: Stable Hospitalist MIPS Heart Failure (Exclusion) Patient has history of Heart Transplant or Left Ventricular Assistive Device?: No IF YES, STOP HERE Heart Failure (Qualifier) Patient has current or prior documentation of LVEF less than or equal to 40%, or mod/servere depressed LVSF?: No IF NO, STOP HERE
[2024-09-09 16:49] LABS: Glucose Point of Care 91 mg/dl (65-105)
[2024-09-09 18:36] LABS: SARS-CoV-2 RNA PCR Negative (Negative)
== END 2024-09-09 19:25 | DRG 195 ==
LOC: ANHED 21:00 → ANH3MEDSUR 09-05 03:09
PROVIDERS: Internal Medicine; Nurse Practitioner Family; Physician Assistant; Admitting Provider Internal Medicine; Emergency Provider Emergency Medicine; PCP Family Medicine; Visit Provider General Practice
DX: J18.9 Pneumonia, unspecified organism (principal); I12.9 Hypertensive chronic kidney disease with stage 1 through stage 4 chronic kidney disease, or unspecified chronic kidney disease; N18.30 Chronic kidney disease, stage 3 unspecified; F41.9 Anxiety disorder, unspecified; K21.9 Gastro-esophageal reflux disease without esophagitis; D63.1 Anemia in chronic kidney disease; N40.0 Benign prostatic hyperplasia without lower urinary tract symptoms; I48.0 Paroxysmal atrial fibrillation; E78.5 Hyperlipidemia, unspecified; R29.6 Repeated falls; F03.90 Unspecified dementia, unspecified severity, without behavioral disturbance, psychotic disturbance, mood disturbance, and anxiety; Z79.01 Long term (current) use of anticoagulants; Z86.73 Personal history of transient ischemic attack (TIA), and cerebral infarction without residual deficits; Z96.642 Presence of left artificial hip joint; Z87.891 Personal history of nicotine dependence
CPT/HCPCS: 36415; 70450; 71046; 80053; 81001; 82565; 82948; 83735; 84145; 85025; 85610; 85730; 87040; 87635; 87641; 93005; 96365; 96367; 97110; 97161; 97165; 97530; 99285; A9270; J0360; J0456; J0692; J0696; J0780; J1815; J3370

== ENCOUNTER 2024-12-25 12:49 | Outpatient (CLI) | payer MEDICARE, SELFPAY ==
--- NOTE | ~2024-12-25 | CT_ITS ---
CT Scan of the Chest without Contrast: Clinical Indication: Lung cancer Technique: Contiguous sections were acquired throughout the chest without intravenous contrast. Dose reduction technique was used on this scan by utilizing automated exposure control and iterative recon struction technique. The dose-length product (DLP) was 136.22 mGy-cm. COMPARISON: 08/21/2024 Findings: There is no evidence of any significant mediastinal, hilar or axillary lymphadenopathy. Calcified med iastinal and hilar lymph nodes are present. Coronary artery calcifications are present. There is no evidence of pleural or pericardial effusion. Bandlike consolidation in the right upper lobe with air bronchograms is present, most compatible prio r radiation change. There is amorphous groundglass opacity right middle lobe, similar to prior exam. Scattered calcified granulomas are present. Images through the upper abdomen reveal cholelithiasis. Compression fractures of T11, T12, and L1 are present. L1 vertebroplasty cement present. Impression: Post radiation/post treatment change in the right upper lobe, slightly decreased in extent from prior exam. Stable amorphous ground glass opacity in the right middle lobe, presumably representing additional po sttreatment change versus chronic pneumonitis. Reviewed, dictated and finalized at location . Impression: Post radiation/post treatment change in the right upper lobe, slightly decrease d in extent from prior exam. Stable amorphous ground glass opacity in the right middle lobe, presumably repr esenting additional posttreatment change versus chronic pneumonitis.
--- OUTSIDE RECORDS SUMMARY | 2024-12-25 13:12 | XMS_ITS | Encounter Summary ---
Author Organization [facility] Address [address] [facility] [place] [address] Phone Care Team Providers Care Nutrition Tech Name Role Phone Ming Beyer MD Primary Care Provider [phone] Aurea Weiss RN Unavailable Unavailable Reason for Visit * Reason Onset Date Comments Medication Refill 10/31/2020 Encounter Details Date Type Department Care Team (Late st Contact Info) Description 10/31/2020 Refill [facility] [place] #2 [place] [address] Ming Beyer MD #[address] [address] Medication Refill Social History Tobacco Use Types Packs/Day Years Used Date Smoking Tobacco: Never Smokeless Tobacco: Never Alcohol Use Standard Drinks/Week Comments No 0 (1 standard drink = 0.6 oz pur e alcohol) Sexually Active Control Partners Comments Never Sex and Gender Information Value Date Recorded Sex Assigned at Not on file Legal Sex Male 12:28 PM CDT Gender Identity Not on file Sexual Orientation Not on file Occupation Industry Job Start Date Job End Date Retired Not on file Not on file Not on file COVID-19 Exposure Response Date Recorded In the last month, have you been in contact with someone who was confirmed or suspected to have Coronavirus / COVID-19? No / Unsure 10/31/2020 1:20 PM GUEST SERVICES COORDINATOR documented as of this encounter Miscellaneous Notes * Telephone Encounter - Bridgett Corcoran N - 10/31/2020 1:02 PM CST Received a faxed Rx request from pharmacy. Reordered refill medication(s) requested and pended for nurse and physician/ABRAHAM review. Refill encounter routed to nurse Lissettescript's pool for processing. T SERVICES COORDINATOR documented in this encounter Plan of Treatment Upcoming Encounters Date Type Department Care Team (Late st Contact Info) Description 01/18/2025 1:00 PM CDT Lab [facility] #[address] [address] Iv[facility] [place] Lab/Ancillary 03/01/2025 1:30 PM CDT Office Visit [facility] - [place] #2 [place] [address] Ming Beyer MD #[address] [address] documented as of this encounter Results * PSA SCREEN (10/31/2020 1:31 PM GUEST SERVICES COORDINATOR) PSA SCREEN, TOTAL 0.94 <=4.00 ng/mL 10/31/2020 4:19 PM GUEST SERVICES COORDINATOR [facility] Blood Venipuncture / Unknown 10/31/2020 1:31 PM GUEST SERVICES COORDINATOR 10/31/2020 3:38 PM GUEST SERVICES COORDINATOR Narrative [facility] - 10/31/2020 4:19 PM GUEST SERVICES COORDINATOR PSA NOTE: The PSA value should be used in conjunction with information available from clinical evaluation and other diagnostic procedures. us Ming Beyer MD CHEMISTRY ORDERABLES Final Re sult [facility] #1 [place] [address] documented in this encounter Visit Diagnoses Diagnosis Screening for prostate cancer- Primary Special screening for malignant neoplasm of prostate documented in this encounter Additional Health Concerns Assessment Noted Time PHQ-9 Depression Total Score: 0 01/17/20 20 4:29 PM CDT documented as of this encounter Care Teams Nutrition Tech Relationship Specialty Start Date End Date Ming Beyer MD #[address] [address] PCP - General Family Medicine 08/25/18 Aurea Weiss, RN [place] Nurse Automobile Body Repairer Helper 12/07/23 12/07/23 documented as of this encounter
--- OUTSIDE RECORDS SUMMARY | 2024-12-25 13:12 | XMS_ITS | Referral Summary ---
Author Organization [facility] Address [address] [place] [address] Care Team Providers Care Pan Tank Worker Name Role Phone Ming Beyer MD Primary Care Provider [phone] Allergies No known active allergies Medications glimepiride (AMARYL) 1 mg tablet Take 2 mg by mouth daily before breakfast Active insulin detemir U-100 (LEVEMIR) 100 unit/mL (3 mL) insulin pen Inject 12 Units under the skin nightly Active meclizine (ANTIVERT) 12.5 mg tablet Take 12.5 mg by mouth 3 (three) times a day as needed for dizziness Active memantine (NAMENDA) 10 mg tablet Take 10 mg by mouth daily Active metFORMIN (GLUCOPHAGE) 500 mg tablet Take 500 mg by mouth 2 (two) times a day with meals Active ALPRAZolam (XANAX) 2 mg tablet Take 2 mg by mouth 2 (two) times a day as needed for anxiety Active atorvastatin (LIPITOR) 80 mg tabletIndicatio ns:hyperlipidem ia Take 1 tablet (80 mg total) by mouth daily 30 tablet 11 9 Active tamsulosin (FLOMAX) 0.4 mg extended release capsule 2 Active lisinopriL (PRINIVIL,ZESTR IL) 10 mg tablet Take 1 tablet (10 mg total) by mouth daily 30 tablet 3 Active acetaminophen (TYLENOL) 325 mg tabletIndicatio ns:Fever,Pain Take 2 tablets (650 mg total) by mouth every 6 (six) hours 60 tablet 3 Active metoprolol tartrate (LOPRESSOR) 25 mg immediate release tablet Take 1 tablet (25 mg total) by mouth 2 (two) times a day 60 tablet 3 Active polyethylene glycol (MIRALAX) 17 gram packetIndicatio ns:constipation Take 1 packet (17 g total) by mouth daily as needed for constipation 15 packet 3 Active hydrALAZINE (APRESOLINE) 25 mg tabletIndicatio ns:hypertension Take 1 tablet (25 mg total) by mouth 3 (three) times a day 90 tablet 11 3 Active lacosamide (VIMPAT) 100 mg tablet Take 1 tablet (100 mg total) by mouth 2 (two) times a day 60 tablet 3 Active oxyCODONE (ROXICODONE) 5 mg immediate release tabletIndicatio ns:Pain Take 1 tablet (5 mg total) by mouth every 4 (four) hours as needed for pain 15 tablet 3 Active apixaban (Eliquis) 5 mg tablet Take 1 tablet by mouth 2 (two) times a day 2 Active famotidine (PEPCID) 20 mg tablet 2 Active famotidine (PEPCID) 20 mg tablet Take 1 tablet by mouth every 12 (twelve) hours 2 Active glyBURIDE (DIABETA) 5 mg tablet GLYBURIDE 5 MG ORAL TABLET 0 Active HYDROcodone-cris taminophen (NORCO) 5-325 mg per tablet 0 3 Active HYDROcodone-cris taminophen (NORCO) 10-325 mg per tablet 3 Active HYDROcodone-cris taminophen (NORCO) 10-325 mg per tablet Take 1 tablet by mouth every 8 (eight) hours as needed 3 Active metoprolol XL (TOPROL-XL) 25 mg extended release tablet 2 Active metoprolol XL (TOPROL-XL) 50 mg extended release tablet 2 Active Active Problems Problem Noted Date Diagnosed Date Atherosclerotic heart diseas e of [place] coronary artery without angina pectoris 09/28/2022 Diabetes 1.5, 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/2022 Diabetes mellitus 09/28/2022 Dislocated hip 09/28/2022 Overview (09/28/2022): at the joint left side High cholesterol 09/28/2022 Occlusion and stenosis of unspecified carotid ar shobha 09/28/2022 Unspecified atrial fibrillation 09/28/2022 Subdural hematoma 08/16/2022 Hypotension due to drugs 05/04/2022 Aortic root dilatation 05/04/2022 Essential hypertension 05/04/2022 Cerebrovascular accident (CVA) 05/04/2022 Diabetic polyneuropathy asso ciated with type 2 diabetes mellitus 12/15/2021 Phimosis 02/06/2020 Penile lesion 01/26/2020 Trochanteric bursitis, right hip 08/25/2018 Anxiety 07/27/2018 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 07/27/2018 Right hip pain 07/27/2018 Headache 08/09/2015 Ventricular tachycardia 08/04/2013 Immunizations Immunization Administration Dates Next Due Influenza, Quadrivalent, Spl it, Preservative Free, Intramuscular 06/17/2022,06/05/2021,07/01/2020,05/15 Influenza, Unspecified 05/23/2022 Social History Tobacco Use Types Packs/Day Years Used Date Smoking Tobacco: Never Smokeless Tobacco: Never Tobacco Cessation:Counseling Given: Not Answered PHQ-2 Answer Date Recorded PHQ-2 Score 0 04/15/2019 Sex and Gender Information Value Date Recorded Sex Assigned at Not on file Legal Sex Male 5:50 PM CENTRAL OFFICE REPAIRER SUPERVISOR Gender Identity Not on file Sexual Orientation Not on file Last Filed Vital Signs Vital Sign Reading Time Taken Comments Blood Pressure 151/92 08/26/2022 7:55 AM CENTRAL OFFICE REPAIRER SUPERVISOR Pulse 83 08/26/2022 7:55 AM CENTRAL OFFICE REPAIRER SUPERVISOR Temperature 36.9 C (98.4 F) 08/26/2022 7:55 AM CENTRAL OFFICE REPAIRER SUPERVISOR Respiratory Rate 16 08/26/2022 7:55 AM CENTRAL OFFICE REPAIRER SUPERVISOR Oxygen Saturation 92% 08/26/2022 7:55 AM CENTRAL OFFICE REPAIRER SUPERVISOR Inhaled Oxygen Concentration - - Weight 75 kg (165 lb 5.5 oz) 08/16/2022 6:55 AM CENTRAL OFFICE REPAIRER SUPERVISOR Height 182.9 cm (6') 08/16/2022 6:55 AM CENTRAL OFFICE REPAIRER SUPERVISOR Body Mass Index 22.42 08/16/2022 6:55 AM CENTRAL OFFICE REPAIRER SUPERVISOR Plan of Treatment Not on file Procedures Procedure Name Priority Date/Time Associated Diagnosis Comments EGFR Routine 08/26/2022 1:18 AM CENTRAL OFFICE REPAIRER SUPERVISOR LIPID PANEL STAT 08/16/2022 8:07 AM CENTRAL OFFICE REPAIRER SUPERVISOR HEMOGLOBIN A1C Routine 08/16/2022 12:17 AM CENTRAL OFFICE REPAIRER SUPERVISOR from Last 3 Months or Most Recently Relevant to Health Maintenance Results * (ABNORMAL) eGFR (08/26/2022 1:18 AM CENTRAL OFFICE REPAIRER SUPERVISOR) eGFR 42(L) 90 - 130 mL/min/1. 73 m2 [facility] Comment: Interpretive Data Reference Interval Normal >/= 90 mL/min/1.73m2 Mildly decreased* 60 - 89 mL/min/1.73m2 Mildly to moderately decreased 45 - 59 mL/min/1.73m2 Moderately to severely decreased 30 - 44 mL/min/1.73m2 Severely decreased 15 - 29 mL/min/1.73m2 Kidney Failure < 15 mL/min/1.73m2 *Relative to young adult level Estimated glomerular filtration rate is determined by the 2020 CKD-EPI equation recommended by the National Kidney Foundation (A Unifying Approach to GFR Estimation: Recommendations of the NKF-ASK Task Force on Reassessing the Inclusion of Race in Diagnosing Kidney Disease, JASN 202). The CKD-EPI equation should not be used for patients with unstable renal function and has not been validated in children and those over 70. Current interpretive data was last reviewed 2021. Blood 08/26/2022 1:18 AM CENTRAL OFFICE REPAIRER SUPERVISOR 08/26/2022 1:51 AM CENTRAL OFFICE REPAIRER SUPERVISOR us Quynh Duron MD LAB BLOOD ORDERABLES Final Result [facility] [place] [address] * (ABNORMAL) Lipid panel (08/16/2022 8:07 AM CENTRAL OFFICE REPAIRER SUPERVISOR) Cholesterol 184 30 - 199 mg/dL [facility] Comment: Interpretive Data Ages < or = 19 years Acceptable: <170 mg/dL Borderline high: 170-199 mg/dL High: >or= 200 mg/dL Ages > or = 20 years Desirable: <200 mg/dL Borderline high: 200-239 mg/dL High: >or= 240 mg/dL Literature References: 1. Expert Panel on Integrated Guidelines for Cardiovascular Health and Risk Reduction in Children and Adolescents. Pediatrics 2011;128:S213 2. NCEP Expert Panel. Circulation 2004;110:227 Current Interpretive Data was last revised on 2018. Triglycerides 141 <=149 mg/dL [facility] Comment: Interpretive Data Ages < or = 9 years Acceptable: <75 mg/dL Borderline high: 75-99 mg/dL High: >or= 100 mg/dL Ages 10 to 20 years Acceptable: <90 mg/dL Borderline high: 90-129 mg/dL High: >or= 130 mg/dL Ages > or = 20 years Desirable: <150 mg/dL Borderline high: 150-199 mg/dL High: 200-499 mg/dL Very high: >or= 499 mg/dL Literature References: 1. Expert Panel on Integrated Guidelines for Cardiovascular Health and Risk Reduction in Children and Adolescents. Pediatrics 2011;128:S213 2. NCEP Expert Panel. Circulation 2004;110:227 Current Interpretive Data was last revised on 2018. HDL 30(L) >=40 mg/dL [facility] Comment: Interpretive Data Ages < or = 19 years Acceptable: >45 mg/dL Borderline low: 40-45 mg/dL Low: <40 mg/dL Ages > or = 20 years Desirable: >or= 60 mg/dL Low: <40 mg/dL Literature References: 1. Expert Panel on Integrated Guidelines for Cardiovascular Health and Risk Reduction in Children and Adolescents. Pediatrics 2011;128:S213 2. NCEP Expert Panel. Circulation 2004;110:227 Current Interpretive Data was last revised on 2018. LDL, calculated 126 <=129 mg/dL [facility] Comment: Interpretive Data Ages < or = 19 years Acceptable: <110 mg/dL Borderline high: 110-129 mg/dL High: >or= 130 mg/dL Ages > or = 20 years Optimal: <100 mg/dL Near optimal: 100-129 mg/dL Borderline high: 130-159 mg/dL High: >160 mg/dL Literature References: 1. Expert Panel on Integrated Guidelines for Cardiovascular Health and Risk Reduction in Children and Adolescents. Pediatrics 2011;128:S213 2. NCEP Expert Panel. Circulation 2004;110:227 Current Interpretive Data was last revised on 2018. Non-HDL Cholesterol 154 mg/dL [facility] Comment: Interpretive Data Ages < or = 19 years Acceptable: <120 mg/dL Borderline high: 120-144 mg/dL High: >145 mg/dL Ages > or = 20 years When triglycerides are >200 mg/dL, Non-HDL cholesterol is a secondary target of therapy with treatment goals that are 30 mg/dL greater than the LDL cholesterol target. Literature References: 1. Expert Panel on Integrated Guidelines for Cardiovascular Health and Risk Reduction in Children and Adolescents. Pediatrics 2011;128:S213 2. NCEP Expert Panel. Circulation 2004;110:227 Current Interpretive Data was last revised on 2018. Chol/HDL ratio 6 [facility] Blood 08/16/2022 8:07 AM CENTRAL OFFICE REPAIRER SUPERVISOR 08/16/2022 8:38 AM CENTRAL OFFICE REPAIRER SUPERVISOR Quynh Duron MD LAB BLOOD ORDERABLES Final Result [facility] Department [place] [address] * (ABNORMAL) Hemoglobin A1c (08/16/2022 12:17 AM CENTRAL OFFICE REPAIRER SUPERVISOR) Hgb A1C 7.6(H) 4.0 - 5.6 % [facility] Comment:Testing performed by : [facility], [facility] [place] [address] Estimated Average Glucose 171 mg/dL [facility] Comment: The ADA recommends reporting an estimated Average Glucose (eAG) with all Hemoglobin A1c results using the equation derived from a study of 507 normal and diabetic adults. Minority populations were underrepresented and children were not included. (Diabetes Care 31:0346-5418, 2008). The eAG is not equivalent to a fasting glucose. Testing performed by: [facility], [facility], [place]., [address] Blood 08/16/2022 12:1 7 AM CENTRAL OFFICE REPAIRER SUPERVISOR 08/16/2022 5:29 PM CENTRAL OFFICE REPAIRER SUPERVISOR Quynh Duron MD LAB BLOOD ORDERABLES Final Result Performing Organization Address City/State/ZIP Co me Phone Number [facility] [place] [address] from Last 3 Months or Most Recently Relevant to Health Maintenance Insurance MEDICARE [facility] MEDICARE IDMS MEDICARE IDMS Advance Directives For more information, please contact: [phone] * Full Code (Latest Code Status on File) Date Activated Date Inactivated Comments 08/16/2022 7:01 AM 08/26/2022 4:13 PM * Full Code Date Activated Date Inactivated Comments 10/27/2018 10:39 PM 10/31/2018 9:46 PM Care Teams Pan Tank Worker Relationship Specialty Start Date End Date Ming Beyer MD [address] [facility] [place] [id number] PCP - General Family Medicine 05/04/22
--- OUTSIDE RECORDS SUMMARY | 2024-12-25 13:12 | XMS_ITS | Encounter Summary ---
Author Organization [facility] Address [address] [facility] [place] [address] Phone Care Team Providers Care General Partner Name Role Phone Ming Beyer MD Primary Care Provider Aurea Weiss RN Unavailable Unavailable Reason for Visit * Reason Comments Medication Refill Encounter Details Date Type Department Care Team (Late st Contact Info) Description 07/17/2022 Refill [facility] Family [facility] #2 [place] [address] Ming Beyer MD #[address] [address] Medication Refill Social History Tobacco Use Types [...] Exposure Response Date Recorded In the last 10 days, have yo u been in contact with someone who was confirmed or suspected to have Coronavirus/COVID-19? No / Unsure 07/15/2022 1:10 PM SUSTAINABILITY PROJECT MANAGER documented as of this encounter Miscellaneous Notes * Telephone Encounter - Torrie Garibay RN - 07/17/2022 12:49 PM SUSTAINABILITY PROJECT MANAGER PDMP xanax 06/20/2022 #60, hydrocodone 06/20/2022 #90 Medication failed the protocol, provider to review and approve the medication order if appropriate. Requested Prescriptions Pending Prescriptions Disp Refills ALPRAZolam 2 MG Tablet [Pharmacy Med Name: ALPRAZOLAM 2MG] 60 Tablet 0 Sig: TAKE ONE TABLET BY MOUTH ONCE DAILY IN THE MORNING AND ONCE AT BEDTIME. Not Delegated - Benzodiazepines Protocol Failed - 07/17/2022 12:43 PM Failed - This refill cannot be delegated Passed - Visit with relevant provider in past 12 months or upcoming 90 days Recent Visits Date Type Provider Dept 07/15/22 Office Visit Ming Beyer MD [facility] 07/03/22 Office Visit Elfego Carrillo APRN, [facility] 06/17/22 Office Visit Ming Beyer MD [facility] 03/16/22 Office Visit Ming Beyer MD [facility] 12/15/21 Office Visit Ming Beyer MD [facility] 09/09/21 Office Visit Ming Beyer MD [facility] Showing recent visits within past 365 days and meeting all other requirements Future Appointments No visits were found meeting these conditions. Showing future appointments within next 90 days and meeting all other requirements HYDROcodone-acetaminophen (NORCO) 10-325 MG Tablet [Pharmacy Med Name: *HYDROCOD/APAP 10/325MG AMNEAL] 90 Tablet 0 Sig: TAKE ONE TABLET BY MOUTH EVERY EIGHT HOURS NEEDED FOR MODERATE TO MORE SEVERE PAIN Not Delegated - Opioid Combinations Protocol Failed - 07/17/2022 12:43 PM Failed - This refill cannot be delegated Passed - Visit with relevant provider in past 12 months or upcoming 90 days Recent Visits Date Type Provider Dept 07/15/22 Office Visit Ming Beyer MD [facility] 07/03/22 Office Visit Elfego Carrillo APRN, [facility] 06/17/22 Office Visit Ming Beyer MD [facility] 03/16/22 Office Visit Ming Beyer MD [facility] 12/15/21 Office Visit Ming Beyer MD [facility] 09/09/21 Office Visit Ming Beyer MD [facility] Showing recent visits within past 365 days and meeting all other requirements Future Appointments No visits were found meeting these conditions. Showing future appointments within next 90 days and meeting all other requirements AINABILITY PROJECT MANAGER documented in this encounter Plan of Treatment Upcoming Encounters Date Type Department Care Team (Late st Contact Info) Description 01/18/2025 1:00 PM CDT Lab [facility] #[address] [address] [facility] Lab/Ancillary 03/01/2025 1:30 PM CDT Office Visit [facility] - Family Medicine - [place] #2 [place] [address] Ming Beyer MD #[address] [address] documented as of this encounter Visit Diagnoses Diagnosis 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
--- OUTSIDE RECORDS SUMMARY | 2024-12-25 13:12 | XMS_ITS | Encounter Summary ---
Author Organization [facility] Address [address] [facility] [place] [address] Phone Care Team Providers Care Organ Grinder Name Role Phone Ming Beyer MD Primary Care Provider Aurea Weiss RN Unavailable Unavailable Reason for Visit * Reason Comments Medication Refill Encounter Details Date Type Department Care Team (Late st Contact Info) Description 01/08/2021 Refill [facility] - Family Medicine [facility] #2 [place] [address] Ming Beyer MD #[address] [address] Medication Refill Social History Tobacco Use Types [...] have Coronavirus / COVID-19? No / Unsure 12/09/2020 12:08 PM CDT documented as of this encounter Miscellaneous Notes * Telephone Encounter - Ming Beyer MD - 01/09/2021 6:54 AM CDT Prescription pending signature * Telephone Encounter - Salud Rebolledo RN - 01/08/2021 3:48 PM CDT [place] PDMP 12/09/20 Medication failed the protocol, provider to review and approve the medication order if appropriate. Requested Prescriptions Pending Prescriptions Disp Refills HYDROcodone-acetaminophen (NORCO) 10-325 MG Tablet [Pharmacy Med Name: HYDROCOD/APAP 10/325MG AMNE]60 Tablet Sig: Take 1 Tablet by mouth every 8 hours as needed for Mild or more severe pain. [facility] Not Delegated - Analgesics: Opioid Agonist Combinations Failed - 01/08/2021 3:48 PM Failed - This refill cannot be delegated Passed - Valid encounter within last 6 months Past Office Visits Recent Outpatient Visits 4 weeks ago Foot lesion [facility] Ming Machado MD 2 months ago High cholesterol [facility] Ming Machado MD 6 months ago Diabetes 1.5, managed as type 2 (HCC) [facility] Ming Massey MD 10 months ago Panic type anxiety neurosis [facility] Ming Machado MD 11 months ago Penis pain [facility] Ming Massey MD Upcoming Appointments Future Appointments In 1 month [facility], [facility]ICIAN GROUP [facility], [facility] In 1 month Ming Beyer MD [facility] - Recent and Past Visits Recent Visits Date Type Provider Dept 12/10/20 Office Visit Ming Beyer MD [facility] 11/04/20 Office Visit Ming Beyer MD [facility] 07/01/20 Office Visit Ming Beyer MD [facility] 02/21/20 Office Visit Ming Beyer MD [facility] 01/17/20 Office Visit Ming Beyer MD [facility] 11/20/19 Telemedicine Ming Beyer MD [facility] Showing recent visits within past 460 days with a meds authorizing provider and meeting all other requirements Future Appointments Date Type Provider Dept 03/06/21 Appointment Ming Beyer MD [facility] Showing future appointments within next 90 days with a meds authorizing provider and meeting all other requirements documented in this encounter Plan of Treatment Upcoming Encounters Date Type Department Care Team (Late st Contact Info) Description 01/18/2025 1:00 PM CDT Lab [facility] #[address] [address] [facility] Lab/Ancillary 03/01/2025 1:30 PM CDT Office Visit [facility] - [facility] - [place] [facility] [place] [address] Ming Beyer MD #[address] [address] documented as of this encounter Visit Diagnoses Diagnosis Pain of left hip joint documented in this encounter Additional Health Concerns Assessment Noted Time PHQ-9 Depression Total Score: 0 01/17/20 20 4:29 PM CDT documented as of this encounter Care Teams Organ Grinder Relationship Specialty Start Date End Date Ming Beyer MD #[address] [address] PCP - General Family Medicine 08/25/18 Aurea Weiss RN [place] Nurse Diesel Service Technician 12/07/23 12/07/23 documented as of this encounter
--- OUTSIDE RECORDS SUMMARY | 2024-12-25 13:12 | XMS_ITS | Encounter Summary ---
Author Organization [facility] Address [address] [place] [address] Phone Care Team Providers Care Gripper Machine Operator Name Role Phone Ming Beyer MD Primary Care Provider Aurea Weiss RN Unavailable Unavailable Reason for Visit * Reason Comments Medication Refill Encounter Details Date Type Department Care Team (Late st Contact Info) Description 07/27/2022 Refill [facility] - [facility] #2 [place] [address] Ming Beyer MD #[address] [address] Medication Refill Social History Tobacco Use Types [...] Coronavirus/COVID-19? No / Unsure 07/15/2022 1:10 PM ADDING MACHINE SERVICER documented as of this encounter Miscellaneous Notes * Telephone Encounter - Salud Rebolledo RN - 07/27/2022 4:19 PM CST Pt reported not taking on 07/03/22 - medication discontinued NG MACHINE SERVICER documented in this encounter Plan of Treatment Upcoming Encounters Date Type Department Care Team (Late st Contact Info) Description 01/18/2025 1:00 PM CDT Lab [facility] LAB #[address] [address] [facility] Lab/Ancillary 03/01/2025 1:30 PM CDT Office Visit [facility] - [facility] - [place] #2 [place] [address] Ming Beyer MD #[address] [address] documented as of this encounter Visit Diagnoses Not on filedocumented in this encounter Additional Health Concerns Assessment Noted Time PHQ-9 Depression Total Score: 0 01/17/20 20 4:29 PM CDT documented as of this encounter Care Teams Gripper Machine Operator Relationship Specialty Start Date End Date Ming Beyer MD #[address] [address] PCP - General Family Medicine 08/25/18 Aurea Weiss RN [place] Nurse Director Of Compliance 12/07/23 12/07/23 documented as of this encounter
--- OUTSIDE RECORDS SUMMARY | 2024-12-25 13:12 | XMS_ITS | Encounter Summary ---
Author Organization [facility] Address [address] [facility] [place] [address] Phone Care Team Providers Care Roofing Technician Name Role Phone Ming Beyer MD Primary Care Provider [phone] Aurea Weiss RN Unavailable Unavailable Reason for Visit * Reason Onset Date Comments Medication Refill 12/09/2020 norco Encounter Details Date Type Department Care Team (Late st Contact Info) Description 12/09/2020 Refill [facility] [address] [place] [phone] Ming Beyer MD #[address] [address] Medication Refill (norco) Social History Tobacco Use Types Packs/Day Years [...] Telephone Encounter - Ming Beyer MD - 12/09/2020 12:42 PM CDT Prescription pending signature * Telephone Encounter - Leana Bruce RN - 12/09/2020 12:26 PM CDT Daughter calling for refill of hydrocodone-acetaminophen (NORCO) 10-325 MG Tablet Daughter states that she called on 12/05/20 for refill. Patient is out of [place] and in pain. Pharmacy verified. documented in this encounter Plan of Treatment Upcoming Encounters Date Type Department Care Team (Late st Contact Info) Description 01/18/2025 1:00 PM CDT Lab [facility] #[address] [address] [facility] Lab/Ancillary 03/01/2025 1:30 PM CDT Office Visit [facility] - [place] [address]2 [place] [address] Ming Beyer MD #[address] [address] documented as of this encounter Visit Diagnoses Diagnosis Pain of left hip joint documented in this encounter Additional Health Concerns Assessment Noted Time PHQ-9 Depression Total Score: 0 01/17/20 20 4:29 PM CDT documented as of this encounter Care Teams Roofing Technician Relationship Specialty Start Date End Date Ming Beyer MD #[address] [address] PCP - General Family Medicine 08/25/18 Aurea Weiss, [place] Nurse Clinical Engineering Director 12/07/23 12/07/23 documented as of this encounter
--- OUTSIDE RECORDS SUMMARY | 2024-12-25 13:12 | XMS_ITS | Clinical Summary ---
Author Organization [facility] Address [address] [place] [address] Care Team Providers Care Refractory Manager Name Role Phone Ming Beyer MD Primary Care Provider + [phone] Allergies No known active allergies Medications glimepiride [...] Diagnosed Date Atherosclerotic heart diseas e of [place] coronary artery without angina pectoris 09/28/2022 Diabetes [...] Preservative Free, Intramuscular 06/17/2022,06/05/2021,07/01/2020,05/15 Influenza, Unspecified 05/23/2022 Surgical History Surgery Date Site/Laterality Comments COLOSTOMY Medical History Medical History Date Comments Diabetes mellitus (HCC) Hypertension TIA (transient ischemic attack) Social History Tobacco Use Types Packs/Day Years Used Date Smoking Tobacco: Never Smokeless Tobacco: Never Tobacco Cessation:Counseling Given: Not Answered PHQ-2 Answer Date Recorded PHQ-2 Score 0 04/15/2019 Sex and Gender Information Value Date Recorded Sex Assigned at Not on file Legal Sex Male 5:50 PM IUSS ANALYST Gender Identity Not on file Sexual Orientation Not on file Obstetrics History Last Filed Vital Signs Vital Sign Reading Time Taken Comments Blood Pressure 151/92 08/26/2022 7:55 AM IUSS ANALYST Pulse 83 08/26/2022 7:55 AM IUSS ANALYST Temperature 36.9 C (98.4 F) 08/26/2022 7:55 AM IUSS ANALYST Respiratory Rate 16 08/26/2022 7:55 AM IUSS ANALYST Oxygen Saturation 92% 08/26/2022 7:55 AM IUSS ANALYST Inhaled Oxygen Concentration - - Weight 75 kg (165 lb 5.5 oz) 08/16/2022 6:55 AM IUSS ANALYST Height 182.9 cm (6') 08/16/2022 6:55 AM IUSS ANALYST Body Mass Index 22.42 08/16/2022 6:55 AM IUSS ANALYST Plan of Treatment Health Maintenance Due Date Last Done Comments Albumin Creatinine Ratio, Urine 1938 Foot Exam 1938 TSH Level 1938 Dilated Eye Exam 1948 DTaP/Tdap/Td Vaccine (1 - Tdap) 1949 Hepatitis B Screening 1956 Pneumococcal vaccine 65+ (1 of 2 - PCV) 1957 Zoster Vaccine (1 of 2) 1988 Well Visit 65+ 2003 Depression Screening 10/28/2019 10/27/2018 Hemoglobin A1C 02/14/2023 08/16/2022, 10/28/2018 Lipid Panel 08/16/2023 08/16/2022, 05/23, 10/28/2018 Fall Risk Assessment 08/26/2023 08/26/2022 eGFR 08/26/2023 08/26/2022, 09/2022, 08/23/2022, Additional history exists Covid-19 Vaccine (2023-2 5 season) 2024 12/26/2020, 11/01/2020 Influenza Vaccine (#1) 2024 , 05/23/2022, 06/05/2021, Additional history exists Procedures Procedure Name Priority Date/Time Associated Diagnosis Comments EGFR Routine 08/26/2022 1:18 AM IUSS ANALYST LIPID PANEL STAT 08/16/2022 8:07 AM IUSS ANALYST HEMOGLOBIN A1C Routine 08/16/2022 12:17 AM IUSS ANALYST from Last 3 Months or Most Recently Relevant to Health Maintenance Results * (ABNORMAL) eGFR (08/26/2022 1:18 AM IUSS ANALYST) eGFR 42(L) 90 - 130 mL/min/1. 73 [...] of Race in Diagnosing Kidney Disease, JASN 2020). The CKD-EPI equation should not be used for patients with unstable renal function and has not been validated in children and those over 70. Current interpretive data was last reviewed 2021. Blood 08/26/2022 1:18 AM IUSS ANALYST 08/26/2022 1:51 AM IUSS ANALYST Quynh Duron MD LAB BLOOD ORDERABLES Final Result [facility] [place] [address] * (ABNORMAL) Lipid panel (08/16/2022 8:07 AM IUSS ANALYST) Cholesterol 184 30 - 199 mg/dL [facility] Comment: Interpretive Data Ages < or = [...] on 2018. Triglycerides 141 <=149 mg/dL [facility] Comment: Interpretive Data Ages < or = [...] revised on 2018. HDL 30(L) >=40 mg/dL [facility] Comment: Interpretive Data Ages < or = [...] on 2018. LDL, calculated 126 <=129 mg/dL [facility] Comment: Interpretive Data Ages < or = [...] revised on 2018. Non-HDL Cholesterol 154 mg/dL [facility] Comment: Interpretive Data Ages < or = [...] last revised on 2018. Chol/HDL ratio 6 [facility] Blood 08/16/2022 8:07 AM IUSS ANALYST 08/16/2022 8:38 AM IUSS ANALYST Result [facility] Quynh Duron MD LAB BLOOD ORDERABLES Final Result Performing Organization Address City/State/[facility] Co de Phone Number [facility] [place] [address] * (ABNORMAL) Hemoglobin A1c (08/16/2022 12:17 AM IUSS ANALYST) [facility] Hgb A1C 7.6(H) 4.0 - 5.6 % [facility] Comment:Testing performed by : [facility], [place]., [address] Estimated Average Glucose 171 mg/dL [facility] Comment: The ADA recommends reporting an estimated Average Glucose (eAG) with all Hemoglobin A1c results using the equation derived from a study of 507 normal and diabetic adults. Minority populations were underrepresented and children were not included. (Diabetes Care 31:1637-7900, 2008). The eAG is not equivalent to a fasting glucose. Testing performed by: [place]., [address] Blood 08/16/2022 12:1 7 AM IUSS ANALYST 08/16/2022 5:29 PM IUSS ANALYST Result [facility] Quynh Duron MD LAB BLOOD ORDERABLES Final Result Performing Organization Address [facility] Co de Phone Number [facility] [place] [address] from Last 3 Months or Most Recently Relevant to Health Maintenance Insurance MEDICARE IDPA MEDICARE IDPA MEDICARE IDPA Advance Directives For more information, please contact: [phone] * Full Code (Latest Code Status on File) Date Activated Date Inactivated Comments 08/16/2022 7:01 AM 08/26/2022 4:13 PM * Full Code Date Activated Date Inactivated Comments 10/27/2018 10:39 PM 10/31/2018 9:46 PM Care Teams Refractory Manager Relationship Specialty Start Date End Date Ming Beyer MD [address] [address] PCP - General Family Medicine 05/04/22
--- OUTSIDE RECORDS SUMMARY | 2024-12-25 13:13 | XMS_ITS | Encounter Summary ---
Author Organization [facility] Address [address] [place] [address] Care Team Providers Care Dock Hand Name Role Phone Unavailable Primary Care Provider Unavailabl e Encounter Details Date Type Department Care Team (Late st Contact Info) Description 01/26/2020 Lab Requisition [facility] LAB MICROBIOLOGY [address] [place] [address] Horacio Davila MD Cough Social History Tobacco Use Types Packs/Day Years Used Date Smoking Tobacco: Never Assessed Sex and Gender Information Value Date Recorded Sex Assigned at Not on file Legal Sex Male 10:32 AM SATELLITE INSTALLER Gender Identity Not on file Sexual Orientation Not on file documented as of this encounter Plan of Treatment Not on file documented as of this encounter Procedures Procedure Name Priority Date/Time Associated Diagnosis Comments SARS-COV-2 (COVID-19) IN HOUSE Routine 01/26/2020 12:26 PM CDT Cough documented in this encounter Results * SARS-COV-2 (COVID-19) IN HOUSE (01/26/2020 12:26 PM CDT) COVID-19 PCR Not detected Not detected, Invalid 01/27/2020 6:[address] [facility] MICROBIOLOG[facility] Microbiology SPECIMEN FROM NASOPHARYNGEAL STRUCTURE / Unknown Collection / Unknown 01/26/2020 12:26 PM CDT 01/26/2020 6:[address] [facility] MICROBIOLOGY - 01/27/2020 6:42 AM CDT This Real Time RT-PCR assay was developed and its performance characteristics determined by [facility]. This test has been authorized by the Food and Drug administration (FDA)under an Emergency Use Authorization (EUA). This test has been validated in accordance with the FDA's guidance document Policy for Diagnostic Testing in Laboratories Certified to perform High Complexity Testing under CLIA prior to Emergency Use Authorization for Coronavirus Disease-2019 during the Public Health Emergency issued on October 21, 2019. FDA independent review of this validation is pending. This test is only authorized for the duration of time the declaration that circumstances exist justifying the authorization of emergency use of in vitro diagnostic tests for detection of SARS-CoV-2 virus and/or diagnosis of COVID-19 infection under section 564(b)(1) of the Act, 21 U.S.C 360bbb-3 (b)(1), unless the authorization is terminated or revoked sooner. Horacio Davila MD LAB - MICROBIOLOGY ORDERABL ES Final Result [facility] [address] [place], [place] [address], [facility] [phone] documented in this encounter Visit Diagnoses Diagnosis Cough documented in this encounter Additional Health Concerns Infection Onset Date Last Indicated Resolved Time COVID-19 Under Investigation 01/26/2020 01/26/2020 01/27/2020 6:42 AM CDT COVID-19 Under Investigation 02/04/2020 02/03/2020 02/04/2020 8:44 PM CDT documented as of this encounter
--- OUTSIDE RECORDS SUMMARY | 2024-12-25 13:13 | XMS_ITS | Encounter Summary ---
Author Organization [facility] Address [address] [facility] [place] [address] Phone Care Team Providers Care Belt Picker Name Role Phone Ming Beyer MD Primary Care Provider Aurea Weiss RN Unavailable Unavailable Reason for Visit * Reason Comments Medication Refill Encounter Details Date Type Department Care Team (Late st Contact Info) Description 11/10/2022 Refill [facility] #2 [place] [address] Ming Beyer MD #[address] [address] Medication Refill Social History Tobacco Use Types [...] file Not on file Not on file documented as of this encounter Miscellaneous Notes * Telephone Encounter - Salud Rebolledo RN - 11/10/2022 12:32 PM CDT PDMP 10/15/22, 11/12/22 - 15 days Medication failed the protocol, provider to review and approve the medication order if appropriate. Requested Prescriptions Pending Prescriptions Disp Refills ALPRAZolam 2 MG Tablet [Pharmacy Med Name: ALPRAZOLAM 2 MG TABLET] 60 Tablet 0 Sig: Take 1 Tablet by mouth in the morning and at bedtime. Not Delegated - Benzodiazepines Protocol Failed - 11/10/2022 12:16 PM Failed - This refill cannot be delegated Passed - Visit with relevant provider in past 12 months or upcoming 90 days Recent Visits Date Type Provider Dept 09/30/22 Office [facility] [place] 07/15/22 Office Visit Ming Beyer MD [facility] 07/03/22 Office Visit [facility]fego [facility] [place] 06/17/22 Office Visit Ming Beyer MD [facility] 03/16/22 Office Visit Ming Beyer MD [facility] 12/15/21 [facility] Showing recent visits within past 365 days and meeting all other requirements Future Appointments Date Type Provider Dept 12/29/22 Appointment Ming Beyer MD [facility] Showing future appointments within next 90 days and meeting all other requirements documented in this encounter Plan of Treatment Upcoming Encounters Date Type Department Care Team (Late st Contact Info) Description 01/18/2025 1:00 PM CDT Lab [facility] #[address] [address] [facility] [place] Lab/Ancillary 03/01/2025 1:30 PM CDT Office Visit [facility] - Family Medicine - [place] #2 [place] [address] Ming Beyer MD #[address] [address] documented as of this encounter Visit Diagnoses Diagnosis 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
--- OUTSIDE RECORDS SUMMARY | 2024-12-25 13:13 | XMS_ITS | Encounter Summary ---
Author Organization [facility] Address [address] [facility] [place] [address] Phone Care Team Providers Care Digital Advertising Analyst Name Role Phone Ming Beyer MD Primary Care Provider Aurea Weiss RN Unavailable Unavailable Reason for Visit * Reason Comments Medication Refill alprazolam Encounter Details Date Type Department Care Team (Late st Contact Info) Description 04/17/2020 Refill [facility] #2 [place] [address] Trish Richardson APRN, DEAN OF FACULTY #[address] [address] Medication Refill (alprazolam) Social History Tobacco Use Types Packs/Day Years [...] Telephone Encounter - Ming Beyer MD - 04/17/2020 3:58 PM CDT Prescription pending signature * Telephone Encounter - Yolanda Benitez - 04/17/2020 3:33 PM CDT Patient is calling to check status of refill request for alprazolam . Patient is taking his last dose today and daughter has to pick this up today. He can not go with out a dose.. Pharmacy closes at 6 so they need this sent over amado Last OV - 02/21/20 Reached out to medication nurse for review documented in this encounter Plan of Treatment Upcoming Encounters Date Type Department Care Team (Late st Contact Info) Description 01/18/2025 1:00 PM CDT Lab [facility] #[address] [address] [facility] [place] Lab/Ancillary 03/01/2025 1:30 PM CDT Office Visit [facility] - [place] #2 [place] [address] Ming Beyer MD #[address] [address] documented as of this encounter Visit Diagnoses Diagnosis 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
--- OUTSIDE RECORDS SUMMARY | 2024-12-25 13:13 | XMS_ITS | Encounter Summary ---
Author Organization [facility] Address [address] [facility] [place] [address] Phone Care Team Providers Care Concrete Precast Moulder Name Role Phone Ming Beyer MD Primary Care Provider [phone] Aurea Weiss RN Unavailable Unavailable Reason for Visit * Reason Comments Medication Refill Encounter Details Date Type Department Care Team (Late st Contact Info) Description 04/07/2021 Refill [facility] #2 [place] [address] Ming Beyer MD #[address] [address] Medication Refill Social History Tobacco Use Types [...] Telephone Encounter - Ming Beyer MD - 04/08/2021 10:14 AM CDT Prescription pending signature * Telephone Encounter - Salud Rebolledo RN - 04/08/2021 9:29 AM CDT [place] PD[place] 03/10/21 [place], Alprazolam Medication failed the protocol, provider to review and approve the medication order if appropriate. Requested Prescriptions Pending Prescriptions Disp Refills HYDROcodone-acetaminophen (NORCO) 10-325 MG Tablet [Pharmacy Med Name: HYDROCOD/APAP 10/325MGAMNE] 60 Tablet 0 Sig: TAKE 1 TABLET BY MOUTH EVERY 8 HOURS NEEDED FOR MILD OR MORE SEVERE PAIN. [facility] Not Delegated - Analgesics: Opioid Agonist Combinations Failed - 04/08/2021 9:29 AM Failed - This refill cannot be delegated Passed - Valid encounter within last 6 months Past Office Visits Recent Outpatient Visits 1 month ago Pain of left hip joint [facility] Ming Machado MD 3 months ago Foot lesion [facility] Ming Massey MD 5 months ago High cholesterol [facility] Ming Machado MD 9 months ago Diabetes 1.5, managed as type 2 (HCC) [facility] Ming Machado MD 1 year ago Panic type anxiety neurosis [facility] Ming Machado MD Upcoming Appointments Future Appointments In 1 month Ming Beyer MD [facility] Isaac [facility] LINE MAINTAINER - Recent and Past Visits Recent Visits Date Type Provider Dept 03/06/21 Office Visit Ming Beyer MD [facility] 12/10/20 Office Visit Ming Beyer MD [facility] 11/04/20 Office Visit Ming Beyer MD [facility] 07/01/20 Office Visit Ming Beyer MD [facility] 02/21/20 Office Visit Ming Beyer MD [facility] 01/17/20 Office Visit Ming Beyer MD [facility] Showing recent visits within past 460 days with a meds authorizing provider and meeting all other requirements Future Appointments Date Type Provider Dept 06/05/21 Appointment Ming Beyer MD [facility] Showing future appointments within next 90 days with a meds authorizing provider and meeting all other requirements lisinopril (PRINIVIL, ZESTRIL) 10 MG Tablet [Pharmacy Med Name: LISINOPRIL 10MG TAB LUPIN] 90 Tablet 3 Sig: TAKE ONE TABLET BY MOUTH EVERY DAY SOPHIA Inhibitors Protocol Passed - 04/08/2021 9:29 AM Passed - Serum potassium on record in past 12 months POTASSIUM Date Value Ref Range Status 03/04/2021 4.8 3.5 - 5.1 mmol/L Final Passed - Blood pressure on record in past 12 months Clinician-entered: BP Readings from Last 3 Encounters: 03/06/21 98/64 12/10/20 98/70 11/04/20 114/68 Patient-entered: No data recorded Passed - Visit with relevant provider in past 12 months or upcoming 90 days Recent Visits Date Type Provider Dept 03/06/21 Office Visit Ming Beyer MD [facility] 12/10/20 Office Visit Ming Beyer MD [facility] 11/04/20 Office Visit Ming Beyer MD [facility] 07/01/20 Office Visit Ming Beyer MD [facility] Showing recent visits within past 365 days and meeting all other requirements Future Appointments Date Type Provider Dept 06/05/21 Appointment Ming Beyer MD [facility] Showing future appointments within next 90 days and meeting all other requirements Passed - GFR on record in past 12 months GFR, EST. NONAFRICAN Date Value Ref Range Status 03/04/2021 55 (L) >=60 Final ALPRAZolam 2 MG Tablet [Pharmacy Med Name: ALPRAZOLAM 2 MG# TAB AURO] 60 Tablet 0 Sig: TAKE ONE TABLET BY MOUTH TWICE DAILY NEEDED FOR ANXIETY There is no refill protocol information for this order insulin detemir (LEVEMIR) 100 UNIT/ML Solution Pen-injector 3 Syringe 3 Si Units by Subcutaneous route nightly. There is no refill protocol information for this order Insulin Pen Needle (PEN NEEDLES 31GX5/16 ) 31G X 8 MM Misc 100 Each 3 Sig: Use to inject insulin daily Diabetic Supplies Protocol Failed - 04/08/2021 9:29 AM Failed - Active on medication list Passed - Visit with relevant provider in past 6 months Recent Visits Date Type Provider Dept 03/06/21 Office Visit Ming Beyer MD [facility] 12/10/20 Office Visit Ming Beyer MD [facility] 11/04/20 Office Visit Ming Beyer MD [facility] [place] Showing recent visits within past 182 days and meeting all other requirements Future Appointments Date Type Provider Dept 06/05/21 Appointment Ming Beyer MD [facility] Showing future appointments within next 90 days and meeting all other requirements documented in this encounter Plan of Treatment Upcoming Encounters Date Type Department Care Team (Late st Contact Info) Description 01/18/2025 1:00 PM CDT Lab [facility] #[address] [address] [facility] 03/01/2025 1:30 PM CDT [facility] - [place] #2 [place] [address] Ming Beyer MD #[address] [address] documented as of this encounter Visit Diagnoses Diagnosis Pain of left hip joint Essential hypertension Unspecified essential hypertension 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
--- OUTSIDE RECORDS SUMMARY | 2024-12-25 13:13 | XMS_ITS | Continuity of Care Document ---
Author Organization [facility] Address [address] [place] [address] [place] [address] Phone Care Team Providers Care Senior Project Manager Name Role Phone Trudy Page Unavailable Unavailable Procedures Procedure Date Excision And Biopsy Botulinum Toxin A Per Unit Excision And Biopsy Eye Exam & Treatment Refraction Destroy Nerve, Face Muscle Destroy Nerve, Face Muscle Botulinum Toxin A Per Unit Destroy Nerve, Face Muscle Destroy Nerve, Face Muscle Botulinum Toxin A Per Unit Advance Directives Directive Yes / No Effective Date File Name No Information Encounters Encounter Description Practice Location Reason(s) For Visit Diagnoses Date Provider Providers Copied on Encounter [facility], [address] [place] [address] [address], [place], [place], [id number], tel:[phone] [facility] No Information [address] Kaylee Kramer [address] [facility] [address] , [address], [place], [address], [place]. tel:[phone] [facility], [address] [place] [address] [address], [place], [place], [id number], [place] tel:[phone] [facility] No Information [address] Kaylee Kramer [address] [facility] [address] , [address], [place], [address], [place]. tel:[phone] [facility], [address] [place], [place] [address], [place], [place], [id number], [place] tel:[phone] [facility] No Information [address] Kaylee Yates. [address] [facility] , [address], [place], [address], [place]. tel:[phone] [facility], [address], [place], [place], [id number], [place] tel:[phone] [facility] No Information [address] Kaylee Yates. [address] [facility] , [address], [place], [address], [place]. tel:[phone] Family History Family Member Type Diagnosis Age At Onset No Information Payers Payer name Insurance type Covered constitution party ID Authoriza tion(s) [place] [id number] Social History Type Description Quantity Date Captured Comments Sex Male Smoking Status No Information Chief Complaint And Reason For Visit No Information Reason For Referral Reason For Referral No Information History Of Present Illness Encounter Date Complaint History Of Prese nt Illness No Information Functional Status Date Functional Assessmen t No Information Instructions Date Instruction Additional Infor mation No Information Assessments Type Assessment Date No Information Patient Care Teams Name Effective Dates (start - stop) Status Members No Information
--- OUTSIDE RECORDS SUMMARY | 2024-12-25 13:13 | XMS_ITS | Clinical Summary ---
Author Organization [facility] Address [address] [place] [address] Phone Care Team Providers Care Freight Clerk Name Role Phone Ming Beyer MD Primary Care Provider [phone] Allergies No known active allergies Medications amLODIPine (NORVASC) 5 MG Tablet 10 mg. 023 Active tamsulosin (FLOMAX) 0.4 MG Capsule TAKE 1 CAPSULE BY MOUTH EVERY DAY 90 Capsule 3 024 Active apixaban (ELIQUIS) 2.5 MG TabletIndicatio ns:Atrial Fibrillation Take 1 Tablet by mouth 2 times daily. Indications: Atrial Fibrillation 180 Tablet 1 024 Active famotidine (PEPCID) 20 MG Tablet TAKE 1 TABLET BY MOUTH EVERY 12 HOURS 180 Tablet 1 025 Active metoprolol Succinate (TOPROL-XL) 25 MG TABLET SR 24 HR TAKE 1 TABLET BY MOUTH EVERY DAY 90 Tablet 1 025 Active FLUoxetine (PROZAC) 40 MG Capsule TAKE 1 CAPSULE BY MOUTH EVERY DAY 90 Capsule 1 025 Active ALPRAZolam 2 MG TabletIndicatio ns:Anxiety Take 1 Tablet by mouth 2 times daily as needed for Anxiety. 60 Tablet 025 Active Senexon-S 8.6-50 MG Tablet TAKE 2 TABLETS BY MOUTH TWICE A DAY 60 Tablet 025 Active hydrALAZINE 10 MG Tablet TAKE 1 TABLET BY MOUTH 4 TIMES A DAY 120 Tablet 025 Active docusate sodium (COLACE) 100 MG Capsule TAKE 1 CAPSULE BY MOUTH TWICE A DAY NEEDED FOR 30 DAYS 30 Capsule 025 Active ibuprofen (MOTRIN) 600 MG Tablet TAKE 1 TABLET BY MOUTH THREE TIMES A DAY WITH FOOD OR MILK NEEDED FOR 30 DAYS 30 Tablet 1 025 Active sodium bicarbonate 650 MG Tablet TAKE 1 TABLET BY MOUTH TWICE A DAY 60 Tablet 025 Active HYDROcodone-cris taminophen (NORCO) 10-325 MG TabletIndicatio ns:Pain of left hip joint Take 1 Tablet by mouth every 8 hours as needed for Moderate or more severe pain. 90 Tablet 025 Active ibuprofen (MOTRIN) 600 MG Tablet Take 1 Tablet by mouth every 6 hours as needed for Moderate or more severe pain. 30 Tablet 1 024 2024 Discontinued ALPRAZolam 2 MG TabletIndicatio ns:Anxiety Take 1 Tablet by mouth 2 times daily as needed for Anxiety. 60 Tablet 025 2024 Discontinued HYDROcodone-cris taminophen (NORCO) 10-325 MG TabletIndicatio ns:Pain of left hip joint Take 1 Tablet by mouth every 8 hours as needed for Moderate or more severe pain. 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 07/27/2018 Anxiety 07/27/2018 Right hip pain 07/27/2018 High cholesterol High blood pressure Diabetes 1.5, managed as type 2 Dislocated hip Overview (12/24/2017): at the joint left side Resolved Problems Problem Noted Date Diagnosed Date Resolved Date S/P colostomy 10/25/2018 12/15/2021 Encounters Date Type Department Care Team Description 12/22/2024 Refill [facility] [place] [address] Ming Beyer MD Medication Refill 12/21/2024 [facility] [place] [address] Ming Beyer MD Medication Refill 12/21/2024 [facility] [place] [address] Ming Beyer MD Medication Refill 11/29/2024 1:45 PM CDT [facility] [place] [address] Ming Beyer MD Diabetes 1.5, managed as type 2 (HCC) (Primary Dx); Essential hypertension; Chronic atrial fibrillation (HCC); Anxiety; Atypical pigmented skin lesion Discharge Disposition: Discharged to home or Selfcare 11/29/2024 Travel 11/24/2024 [facility] [place] [address] Ming Beyer MD Medication Refill 11/23/2024 Telephone [facility] [place] [address] Ming Beyer MD Follow-up 11/23/2024 Telephone [facility] [place] [address] Ming Beyer MD 11/23/2024 Telephone [facility] [place] [address] Ming Beyer MD Follow-up 11/22/2024 [facility] [place] [address] Ming Beyer MD Medication Refill 11/19/2024 [facility] [place] [address] Ming Beyer MD Medication Refill 10/23/2024 Telephone [facility] [place] [address] Ming Beyer MD Form Completion 10/23/2024 [facility] [place] [address] Ming Beyer MD Medication Refill 10/23/2024 [facility] [place] [address] Ming Beyer MD Medication Refill 2024 Telephone [facility] [place] [address] Ming Beyer MD Form Completion 10/12/2024 Telephone [facility] [place] [address] Ming Beyer MD Form Completion 10/04/2024 Telephone [facility] [address] [place] [address] Ming Beyer MD from Last 3 Months Immunizations Immunization Administration Dates Next Due Covid-19, Mrna, Lnp-s, Pf, 3 0 Mcg/0.3 Ml Dose (Pfizer) 12/26/2020,11/01/2020 Influenza Vaccine less than 3 yrs 06/06/2024 Influenza Vaccine, Quadrivalent, PF 05/24,06/05/2021,07/01/2020,2018 Influenza Vaccine,unspecifie d Formulation 05/23/2022 Influenza, High-dose, Quadrivalent 06/18/2023 Family History Medical History Relation Name Comments Aneurysm Brother 2 Coronary Artery Disease Father Stroke Father No Known Problems Mother Alzheimer's Disease Sister 1 Dementia Sister 1 No Known Problems Sister 2 No Known Problems Sister 3 Relation Name Status Comments Brother 1 Alive Brother 2 Father Mother Sister 1 Sister 2 Sister 3 Social History Tobacco Use Types Packs/Day Years Used Date Smoking Tobacco: Never Smokeless Tobacco: Never Tobacco Cessation:Counseling Given: No Alcohol Use Standard Drinks/Week Comments No 0 [...] file Not on file Not on file Last Filed Vital Signs Vital Sign Reading Time Taken Comments Blood Pressure 114/68 11/29/2024 1:41 PM CDT Pulse 66 11/29/2024 1:41 PM CDT Temperature 36.7 C (98 F) 11/29/2024 1:41 PM CDT Respiratory Rate 16 11/29/2024 1:41 PM CDT Oxygen Saturation 98% 11/29/2024 1:41 PM CDT Inhaled Oxygen Concentration - - Weight 67.4 kg (148 lb 8 oz) 11/29/2024 1:41 PM CDT Height 182.9 cm (6') 11/29/2024 1:41 PM CDT Body Mass Index 20.14 11/29/2024 1:41 PM CDT Plan of Treatment Upcoming Encounters Date Type Department Care Team (Late st Contact Info) Description 01/18/2025 1:00 PM CDT Lab [facility] #[address] [address] [facility] 03/01/2025 1:30 PM CDT [facility] Visit [facility] [place] [address] Ming Beyer MD #[address] [address] Health Maintenance Due Date Last Done Comments Diabetes: Foot Exam 1940 Hepatitis C Virus (HCV) Screening 1940 TdaP Immunization 1938 Zoster Immunization (1 of 2) 1988 Respiratory Syncytial Virus (RSV) Immunization (Adult) (1 - 1-dose 75+ series) 2013 Diabetes: Eye Exam 01/14/2024 01/13/2023, 01/13/2023 SARS-COV-2 Immunization ( - season) 2024 08/09/2023, 12/26/2020, 11/01/2020 Diabetes: Hemoglobin A1c 02/06/2025 024, 05/01/2024, 01/13/2023, Additional history exists Diabetes: Nephropathy Screening 08/08/2025 08/08/2024, 05/01/2024, 12/17/2023, Additional history exists Pneumococcal Immunization (50+ years) (1 of 2 - PCV) 08/08/2025 Postponed fro m 1957 (Patient Temporarily Declines) Influenza Immunization Completed , 06/18/2023, 06/17/2022, Additional history exists Hepatitis B Immunization Aged Out No longer eligible based on patient's age to complete this topic Human Papillomavirus (HPV) Immunization Aged Out No longer eligible b ased on patient's age to complete this topic Meningococcal Immunization (ACWY) Aged Out No longer eligible b ased on patient's age to complete this topic Rotavirus Immunization Aged Out No lo nger eligible based on patient's age to complete this topic Procedures Procedure Name Priority Date/Time Associated Diagnosis Comments IN-HOME CONSULT 12/08/2024 12:00 AM CDT PHYSICAL THERAPY CONSULT 12/06/2024 12:00 AM CDT PHYSICAL THERAPY CONSULT 11/27/2024 12:00 AM CDT PHYSICAL THERAPY CONSULT 11/14/2024 12:00 AM CDT PHYSICAL THERAPY CONSULT 10/10/2024 12:00 AM [employer] SUPERINTENDENT OCCUPATIONAL THERAPY CONSULT 10/03/2024 12:00 AM [employer] SUPERINTENDENT CMP (COMPREHENSIVE METABOLIC PANEL) Today 08/08/2024 2:18 PM [employer] SUPER[employer]ENT Weight loss, non-intentional HEMOGLOBIN A1C W/ ESTIMATED GLUCOSE Today 08/08/2024 2:18 PM [employer]ENT Diabetes 1.5, managed as type 2 (HCC) Weight loss, non-intentional DIABETIC BILATERAL RETINAL IMAGING WITH COMPUTERIZED INTERPRETATION Routine 01/13/2023 1:57 PM CDT Diabetes 1.5, managed as type 2 (HCC) from Last 3 Months or Most Recently Relevant to Health Maintenance Results * IN-HOME CONSULT (12/08/2024 12:00 AM CDT) 12/08/2024 us Provider Scan GENERIC SCAN ORDERS CONSULT Nenita l Result Performing Organization Address City/State/[facility] Co de Phone Number SCAN * PHYSICAL THERAPY CONSULT (12/06/2024 12:00 AM CDT) Only the most recent of4 resultswithin the time period is included. 12/06/2024 us Provider Scan GENERIC SCAN ORDERS CONSULT Nenita l Result Performing Organization Address City/[facility] Co de Phone Number SCAN * OCCUPATIONAL THERAPY CONSULT (10/03/2024 12:00 AM [employer] SUPERINTENDENT) 10/03/2024 us Provider Scan GENERIC SCAN ORDERS CONSULT Nenita l Result Performing Organization Address City/[facility] Co de Phone Number SCAN * (ABNORMAL) HEMOGLOBIN A1C W/ ESTIMATED GLUCOSE (08/08/2024 2:18 PM [employer] SUPERINTENDENT) HGB-A1C 6.6(H) 4.0 - 6.0 % 08/08/2024 5:33 PM [employer] SUPERINT[employer]ENT [email or web address] Est Average Glucose 142.7 mg/dL 08/08/2024 5:33 PM [employer] SUPERINTENDENT [facility] [[email or web address] Blood Venipuncture / Unknown 08/08/2024 2:18 PM [employer] SUPERINTENDENT 08/08/2024 5:01 PM [employer] SUPERINTENDENT Narrative [facility] [[email or web address] - 08/08/2024 5:33 PM [employer] SUPER[employer]ENDENT HEMOGLOBIN A1C: DIABETIC PATIENTS: WELL-CONTROLLED: 6.2 - 7.0 INTERMEDIATE WELL-CONTROLLED: 7.0 - 9.0 POORLY-CONTROLLED: >9.0 us Ming Beyer MD CHEMISTRY ORDERABLES Final Re sult [facility] [address] [place] [address] * (ABNORMAL) CMP (COMPREHENSIVE METABOLIC PANEL) (08/08/2024 2:18 PM [employer] SUPER[employer]ENT) SODIUM 140 136 - 145 mmol/L 08/08/2024 5:37 PM [employer] SUPER[employer]ENT [facility] POTASSIUM 4.1 3.5 - 5.1 mmol/L 08/08/2024 5:37 PM [employer] SUPER[employer]ENT [facility] CHLORIDE 107 98 - 107 mmol/L 08/08/2024 5:37 PM [facility] CO2, VENOUS 25 22 - 30 mmol/L 08/08/2024 5:37 PM [facility] ANION GAP 12.1 <18.0 mmol/L 08/08/2024 5:37 PM [employer] SUPERINTENDENT [facility] GLUCOSE 180(H) 70 - 99 mg/dL 08/08/2024 5:37 PM [employer] SUPER[employer]ENT [facility] BUN 30(H) 8 - 26 mg/dL 08/08/2024 5:37 PM [facility] CREATININE, BLOOD 2.24(H) 0.70 - 1.30 mg/dL 08/08/2024 5:37 PM [facility] BUN/CREATININE RATIO 13 12 - 20 ratio 08/08/2024 5:37 PM [facility] TOTAL PROTEIN 7.4 6.3 - 8.2 g/dL 08/08/2024 5:37 PM [facility] ALBUMIN 3.6 3.5 - 5.0 g/dL 08/08/2024 5:37 PM [facility] A/G RATIO 0.9(L) 1.0 - 2.2 08/08/2024 5:37 PM [facility] CALCIUM 8.9 8.7 - 10.5 mg/dL 08/08/2024 5:37 PM [employer] SUPERINTENDENT [facility] T BILI 0.2 0.2 - 1.2 mg/dL 08/08/2024 5:37 PM [employer] SUPER[employer]ENT [facility] SGOT (AST) 9 5 - 34 U/L 08/08/2024 5:37 PM [employer] SUPERINT[employer]ENT [facility] SGPT (ALT) 8 0 - 55 U/L 08/08/2024 5:37 PM [employer] SUPER[employer]ENT [facility] ALKALINE PHOSPHATASE 89 40 - 150 U/L 08/08/2024 5:37 PM [employer] SUPERINTENDENT [facility] IS THE PATIENT REQUIRED TO BE FASTING? No 08/08/2024 5:37 PM [employer] SUPERINTENDENT [facility] GFR, ESTIMATED 28(L) >=60 08/08/2024 5:37 PM [employer] SUPERINT[employer]ENT [facility] Comment: Creatinine Clearance is the preferred criteria for selecting drug dose adjustments in renally impaired patients. The GFR is provided as additional pertinent clinical information. GFR is reported in mL/min/1.73 sq m. Calculation based on the Chronic Kidney Disease Epidemiology Collaboration (CKD- EPI) equation refit without adjustment for race. GFR, EST. 34(L) >=60 024 5:37 PM [employer] SUPERINTENDENT [facility] GFR, EST. NONAFRICAN 28(L) >=60 08/08/2024 5:37 PM [employer] SUPER[employer]ENT [facility] Blood Venipuncture / Unknown 08/08/2024 2:18 PM [employer] SUPERINTENDENT 08/08/2024 5:01 PM [employer] SUPER[employer]ENT Ming Beyer MD CHEMISTRY ORDERABLES Final Re sult [facility] [address] [place] [address] * (ABNORMAL) DIABETIC BILATERAL RETINAL IMAGING WITH COMPUTERIZED INTERPRETATION (01/13/2023 1:57 PM CDT) DIABETIC BILATERAL DIGITAL RETINAL IMAGING Diabetic Retinopathy Detected: ETDRS level 35 or higher and/or Diabetic Macular Edema(A) [facility] Comment: Next Steps: Refer to professional development manager IDx Submission ID: [id number] Results were produced by a system that provides an artificial intelligence (AI) interpretation A positive result indicates a high risk of diabetic retinopathy with a severity of ETDRS level 35 or higher and/or macular edema. IDx-DR diabetic retinopathy exam does not replace a comprehensive eye exam. Other 01/13/2023 1:57 PM CDT Ming Beyer MD OUTPT PROCEDURE ORDERABLES Fi nal Result EXTERNAL EKG [facility] from Last 3 Months or Most Recently Relevant to Health Maintenance Insurance MEDICARE [facility] [place] [id number] Advance Directives * Full Code (Latest Code Status on File) Date Activated Date Inactivated Comments 08/14/2022 7:54 AM * Full Code Date Activated Date Inactivated Comments 11/18/2018 1:40 PM 01/26/2020 10:00 AM Care Teams Freight Clerk Relationship Specialty Start Date End Date Ming Beyer MD [address] [place] [id number] PCP - General Family Medicine 08/25/18
--- OUTSIDE RECORDS SUMMARY | 2024-12-25 13:13 | XMS_ITS | CONTINUITY OF CARE DOCUMENT ---
Author Name lucrecia singer Address Unknown Organization [facility] [address] Address [address] [facility] [address] [place] [address] Phone [phone] Care Team Providers Care Trashman Name Role Phone Cintia DELAROSA, Parish Unavailable GREG DELAROSA, JESUS Unavailable VALERY DELAROSA, SURINDER Unavailable PROBLEMS Condition Status Date Provider Notes AFIB-08/04 TELE SR VENT ECTO PIC HR 48-112 active ? Eva Haley MD DIABETES MELLITUS active ? Debbie Nixon VENTRICULAR TACHYCARDIA active Eva eubanks MD Headache active Eva Haley MD Aortic root dilatation active Eva shirley MD Claudication Intermittent active Eva barnhart MD CAROTID ARTERY DISEASE-05/05 CAROTID NEG completed - Eva Haley MD CAD-08/04 NUC NEG completed - Eva abdi MD HTN BORDERLINE-07/05 ECHO HI LD DILATED AORTA active ? Eva Haley MD ENCOUNTERS Date Type Provider Location Encounter Diag nosis - In-person encounter Office Visit Eva Haley MD [place] [facility] CAD-08/04 NUC NEGCAROTID ARTERY DISEASE-05/05 CAROTID NEGClaudication IntermittentAortic root dilatationHeadache - In-person encounter Office Visit Eva Haley MD [place] [facility] - In-person encounter Office Visit Eva Haley MD [place] [facility] - In-person encounter Office Visit Eva Halye MD [place] [facility] TELE SR VENT ECTOPIC HR 48-112HTN BORDERLINE-07/05 ECHO MILD DILATED AORTAVENTRICULAR TACHYCARDIA - In-person encounter Office Visit Debbie Bacon MD [place] [facility] TELE SR VENT ECTOPIC HR 48-112DIABETES MELLITUSHTN BORDERLINE-07/05 ECHO MILD DILATED AORTA VITAL SIGNS Date Observation Value Provider blood pressure, diastolic 71 mm[Hg] Pr ricky [facility] blood pressure, systolic 119 mm[Hg] [facility] Enriquez pulse rate 64 /min [facility] oxygen saturation, oximetry 96 % [facility] respiratory rate E&M 15 /min [facility] Body Mass Index (Ratio) 27.98 kg/m2 [facility] weight E&M 195 [lb_av] Anne-Marie Enriquez blood pressure, diastolic 61 mm[Hg] Pr ricky [facility] blood pressure, systolic 102 mm[Hg] [facility] pulse rate 68 /min Anne-Marie Enriquez oxygen saturation, oximetry 98 % [facility] Body Mass Index (Ratio) 27.40 kg/m2 [facility] respiratory rate E&M 15 /min Anne-Marie Enriquez weight E&M 191 [lb_av] Anne-Marie Enriquez blood pressure, diastolic 95 mm[Hg] Pr ricky Enriquez blood pressure, systolic 138 mm[Hg] Yvonne cira Enriquez Body Mass Index (Ratio) 27.36 kg/m2 [facility] pulse rate 74 /min [facility] oxygen saturation, oximetry 98 % [facility] respiratory rate E&M 14 /min Anne-Marie Enriquez weight E&M 190 [lb_av] [facility] blood pressure, diastolic 82 mm[Hg] Lamont Backtrinidad LOZANO blood pressure, systolic 118 mm[Hg] Arnel Antoine LOZANO pulse rate 93 /min Arnel Antoine LOZANO oxygen saturation, oximetry 98 % Arnel Antoine LOZANO respiratory rate E&M 15 /min Arnel Alex moss RN Body Mass Index (Ratio) 28.71 kg/m2 Jasaruelio layo Mae blood pressure, diastolic 54 mm[Hg] Bautistaaustinsergey Mae blood pressure, systolic 98 mm[Hg] Jas Mae pulse rate 70 /min Marjorie Mae oxygen saturation, oximetry 98 % Marjorie Mae respiratory rate E&M 16 /min Marjorie Mae weight E&M 199.38 [lb_av] Marjorie Aguilerar an height E&M 70 [in_i] Jasglenn Mae ALLERGIES No Known Drug Allergies RESULTS Date Observation Value Provider Reference Range Interpretation Location free thyroxine index 7.1 ??g/dL [facility] 4.4 - 11.4 triiodothyronine uptake 1.0 TBI [facility] 0.8 - 1.3 thyroxine, serum, total 7.1 ??G/DL [facility] 4.5 - 11.7 thyroid stimulating hormone, serum 1.460 ?IU/ML [facility] 0.270 - 4.200 anion gap, serum 16.2 [facility] - albumin/globulin ratio, serum 2.9 g/dL [facility] 1.1 - 2.5 High globulin, serum 2.8 [facility] 2.3 - 3.8 urea nitrogen/creatinine ratio, serum 16.3 [facility] - Estimated Glomerular Filtration Rate (calc) 99.9 (?) [facility] 59.0 - chloride, serum 96.8 mmol/L [facility] 98.0 - 107.0 Low potassium, serum 4.3 mmol/L [facility] 3.5 - 5.1 sodium, serum 138.0 mmol/L [facility] 136.0 - 145.0 creatinine, serum 0.8 mg/dL [facility] 0.7 - 1.2 carbon dioxide, venous blood 25.0 mmol/L [facility] 23.0 - 31.0 albumin, serum 4.7 g/dL [facility] 3.5 - 5.2 calcium, serum 9.4 mg/dL [facility] 8.6 - 10.2 aspartate aminotransferase (SGOT), serum 12.0 1/L [facility] 0.0 - 40.0 alkaline phosphatase, serum 69.0 1/L [facility] 40.0 - 130.0 alanine aminotransferase (SGPT), serum 11.0 1/L [facility] 0.0 - 41.0 protein, total, serum 7.5 g/dL [facility] 6.6 - 8.7 bilirubin, serum, total 0.4 mg/dL [facility] 0.0 - 1.2 urea nitrogen, blood 13.0 mg/dL [facility] 8.0 - 23.0 blood glucose, random 191.0 mg/dL [facility] 74.[facility] - 99.0 High red blood cell distribution width, size density 42.9 fL [facility] - immature granulocytes, percentage of total cells, blood 0.1 % [facility] - nucleated red blood cells as percent of blood leukocytes 0.0 % [facility] - red blood cell (erythrocyte) count, per high power field 0.0 10*3/UL [facility] - eosinophils as percent of blood leukocytes 12.6 % [facility] - neutrophils as percent of blood leukocytes 58.4 % [facility] - Absolute Neutrophils 4.7 CELLS/UL [facility] 1.5 - 7.8 basophils as percent of blood leukocytes 0.9 % [facility] - Absolute Basophils 0.1 CELLS/UL [facility] 0.0 - 0.2 monocytes as percent of blood leukocytes 5.8 % [facility] - Absolute Monocytes 0.5 CELLS/UL [facility] 0.2 - 1.0 lymphocytes as percent of blood leukocytes 22.2 % [facility] - Absolute Lymphocytes 1.8 CELLS/UL [facility] 0.9 - 3.9 mean platelet volume 11.0 (?) [facility] - platelet count 248.0 THOUSAND/ UL [facility] 100.0 - 400.0 mean corpuscular hemoglobin concentration, RBC 33.1 G/DL [facility] 31.0 - 38.0 mean corpuscular hemoglobin, RBC 28.8 pg [facility] 25.0 - 35.0 mean corpuscular volume, RBC 87.1 fL [facility] 75.0 - 100.0 hematocrit, blood 43.8 % [facility] 35.0 - 55.0 hemoglobin, blood 14.5 g/dL [facility] 11.5 - 16.5 erythrocyte count, whole blood 5.0 MILLION/U L [facility] 3.5 - 5.5 very low density lipoproteins 31.6 mg/dL [facility] 5.0 - 40.0 LDL/HDL (low-density lipoprotein/high-den sity lipoprotein) ratio 2.4 RATIO [facility] - lipoprotein, beta, serum, point, quantitative, calculated 89.4 (?) [facility] - HDL cholesterol, serum 37.0 mg/dL [facility] 35.0 - 55.0 cholesterol, serum 158.0 mg/dL [facility] 0.0 - 200.0 triglyceride, serum, fasting 158.0 mg/dL [facility] 0.0 - 150.0 High free thyroxine index 7.7 ??g/dL [facility] 4.4 - 11.4 triiodothyronine uptake 1.0 TBI [facility] 0.8 - 1.3 thyroxine, serum, total 7.7 ??G/DL [facility] 4.5 - 11.7 thyroid stimulating hormone, serum 1.400 ?IU/ML [facility] 0.270 - 4.200 creatinine, serum 0.88 mg/dL Heriberto Jacques potassium, serum 4.7 mmol/L Heriberto Jacques sodium, serum 137 mmol/L [facility] HISTORY OF MEDICATION USE Medication Status Instructions Dates Provider Indications Com ments SIMVASTATIN TABLET active once daily 8 Anne-Marie Enriquez LOPRESSOR 25MG TABS (METOPROLOL TARTRATE TABS) completed one tablet twice daily 5 - 5 Anne-Marie Enriquez METFORMIN HCL 500 MG ORAL TABLET active twice daily Arnel Schultz RN ALPRAZOLAM 1 MG ORAL TABLET completed twice daily - 8 Anne-Marie Enriquez GLYBURIDE 5 MG ORAL TABLET active twice daily Arnel Schultz RN LISINOPRIL 10 MG ORAL TABLET active ONE TAB. DAILY 8 Eva Haley MD VERAPAMIL HCL 80 MG ORAL TABLET active 1 tablet daily 8 Anne-Marie Enriquez SOCIAL HISTORY Date Observation Value Provider social history E&M Marital Statu s: Smoking History: P atient has never smoked. Eva Haley MD social history reviewed E&M revi ewed - no changes required Eva Haley MD alcohol use no Anne-Marie Enriquez drug use none Anne-Marie Enriquez passive cigarette sm chanda exposure no Anne-Marie Enriquez smoking status Never smoker Anne-Marie rincon social history reviewed E&M revi ewed - no changes required Eva Haley MD drug use none Anne-Marie Enriquez passive cigarette sm chanda exposure no Anne-Marie Enriquez smoking status Never smoker Anne-Marie rincon social history reviewed E&M reviewed Meenakshi Cade NP smoking/tobacco cess ation, patient education and counseling yes Eva Haley MD drug use none Eva valle MD social history reviewed E&M reviewed Arnel Schultz RN social history E&M Marital Status: [place] d Arnel Schultz RN drug use no Jsaadia Tu passive cigarette sm chanda exposure no Marjorie Mae smoking status never smoker Marjorie Marte an MENTAL STATUS Date Observation Value Provider assessment of judgme nt and insight E&M Alert and oriented to time, place and person. Mood and affect are normal. Meenakshi Cade NP assessment of judgme nt and insight E&M Alert and oriented to time, place and person. Mood and affect are normal. Arnel Schultz RN assessment of judgme nt and insight E&M Alert and oriented to time, place and person. Mood and affect are normal. Arnel Schultz RN FAMILY HISTORY Family Member Condition Father Negative FH of Coron tho Artery Disease INSURANCE PROVIDERS Payer name Policy type / Coverage type [place] red green party ID [place] [employer] Medicare [id number] TREATMENT PLAN Date Name Performer Cardiology faxed 08/27/15 Eva Haley MD Cardiology faxed 08/27: H is updated medication list for this problem includes: Verapamil Hcl 80 Mg Tabs (Verapamil hcl) ..... 1 tablet daily Lisinopril 10 Mg Tabs (Lisinopril) ..... One tab. daily Eva Haley MD Cardiology faxed 08/27: O rders: S NOMED-CT: [id number] Current Medications Documented ([id number]) A ortic Abdominal Ultrasound (CPT-66940) 9 9214 MOD Complex (CPT-06709) Eva Haley MD Cardiology faxed 08/27: O rders: A ortic Abdominal Ultrasound (CPT-61663) 9 9214 MOD Complex (CPT-96723) A rterial Duplex Bi-Lower EX (CPT-08923) Eva Haley MD follow up Eva abdi MD follow up: O rders: E KG (CPT-47078) Eva Haley MD follow up: O rders: E KG (CPT-49952) C omplete Echo (CPT-45996) Eva Haley MD follow up: H is updated medication list for this problem includes: Verapamil Hcl 80 Mg Tabs (Verapamil hcl) ..... 1/2 tablet daily Lisinopril 10 Mg Tabs (Lisinopril) ..... One tab. daily Eva Haley MD hsp follow up: H is updated medication list for this problem includes: Verapamil Hcl Er 180 Mg Cr-tabs (Verapamil hcl) ..... Daily Lisinopril 10 Mg Tabs (Lisinopril) ..... One tab. daily BP today: 98/54 Debbie Bacon MD hsp follow up:MART DHILLON DOES NOT HAVE AND DOESNT THINK HE HAS EVER HAD AFIB O rders: E KG (CPT-82865) BP today: 98/54 Prior BP: / () Debbie Bacon MD hsp follow up: H is updated medication list for this problem includes: Lisinopril 10 Mg Tabs (Lisinopril) ..... One tab. daily Glyburide 5 Mg Tabs (Glyburide) ..... Twice daily Metformin Hcl 500 Mg Tabs (Metformin hcl) ..... Twice daily BP today: 98/54 Prior BP: / () Debbie Bacon MD Date Name MRI, Other THYROID PANEL WITH T SH, 3RD GENERATION LIPID PANEL Carotid Duplex Bilat eral Complete Echo CBC (INCLUDES DIFF/P LT) COMPREHENSIVE METABO LIC PANEL W/EGFR Arterial Duplex Bi-L ower EX Aortic Abdominal Ult rasound Arterial Duplex LUE Carotid Duplex Bilat eral Holter Monitor 24 Hr Complete Echo Holter Monitor 24 Hr Sleep Study STR - Adenosine Mobile Cardiac Tele HISTORY OF PROCEDURES Procedure Date Procedure Name Provider Procedure Notes Trinidad coello SNOMED-CT: [id number] Physical Exam, Performed: Pulse Exam of Foot Eva Haley MD completed EKG Eva abdi MD completed SNOMED-CT: [id number] Current Medications Documented Eva Haley MD completed Holter, 24 or 48 Eva valle MD completed Schedule Followup Eva gomes MD Please schedule a follow-up appointment with me and holter in 1 year. completed EKG Eva abdi MD completed EKG Eva abdi MD completed Schedule Followup Eva gomes MD Please schedule a follow-up appointment with me in 6 months. completed EKG Eva abdi MD completed EKG Debbie Bacon MD completed
--- OUTSIDE RECORDS SUMMARY | 2024-12-25 13:13 | XMS_ITS | Encounter Summary ---
Author Organization [facility] Address [address] [facility] [place] [address] Phone Care Team Providers Care Magnetic Resonance Technologist Name Role Phone Ming Beyer MD Primary Care Provider [phone] Aurea Weiss RN Unavailable Unavailable Reason for Visit * Reason Comments Medication Refill Encounter Details Date Type Department Care Team (Late st Contact Info) Description 05/26/2021 Refill [facility] [address] [place] [address] Ming Beyer MD [address] [address] Medication Refill Social History Tobacco Use Types [...] Telephone Encounter - Ming Beyer MD - 05/26/2021 2:28 PM CDT Prescription pending signature * Telephone Encounter - Salud Rebolledo RN - 05/26/2021 2:12 PM CDT [place] 05/01/21 - post date 05/31/21 Medication failed the protocol, provider to review and approve the medication order if appropriate. Requested Prescriptions Pending Prescriptions Disp Refills HYDROcodone-acetaminophen (NORCO) 10-325 MG Tablet [Pharmacy Med Name: HYDROCOD/APAP 10/325MGAMNE] 90 Tablet 0 Sig: TAKE 1 TABLET BY MOUTH EVERY 8 HOURS NEEDED FOR MILD OR MORE SEVERE PAIN [facility] Not Delegated - Analgesics: Opioid Agonist Combinations Failed - 05/26/2021 2:12 PM Failed - This refill cannot be delegated Passed - Valid encounter within last 6 months Past Office Visits Recent Outpatient Visits 2 months ago Pain of left hip joint [facility] Ming Machado MD 5 months ago Foot lesion [facility] Ming Massey MD 6 months ago High cholesterol [facility] Ming Machado MD 10 months ago Diabetes 1.5, managed as type 2 (HCC) [facility] Ming Machado MD 1 year ago Panic type anxiety neurosis [facility] Ming Machado MD Upcoming Appointments Future Appointments In 1 week Ming Beyer MD [facility] Isaac [facility] WHE[facility] AND CASTER REPAIRER - Recent and Past Visits Recent Visits [...] Info) Description 01/18/2025 1:00 PM CDT Lab [facility] [address] [address] [facility] Lab/Ancillary 03/01/2025 1:30 PM CDT Office Visit [facility] - [place] [address] [place] [address] Ming Beyer MD [address] [address] documented as of this encounter Visit Diagnoses Diagnosis Pain of left hip joint documented in this encounter Additional Health Concerns Assessment Noted Time PHQ-9 Depression Total Score: 0 01/17/20 20 4:29 PM CDT documented as of this encounter Care Teams Magnetic Resonance Technologist Relationship Specialty Start Date End Date Ming Beyer MD [address] [address] PCP - General Family Medicine 08/25/18 Aurea Weiss RN [place] Nurse Master In Chancery 12/07/23 12/07/23 documented as of this encounter
--- OUTSIDE RECORDS SUMMARY | 2024-12-25 13:13 | XMS_ITS | Encounter Summary ---
Author Organization [facility] Address [address] [place] [address] Care Team Providers Care Chicken Dresser Name Role Phone Unavailable Primary Care Provider Unavailabl e Encounter Details Date Type Department Care Team (Late st Contact Info) Description 02/04/2020 Lab Requisition [facility] [address] [place] [address] Horacio Davila MD Social History Tobacco Use Types Packs/Day Years Used Date Smoking Tobacco: Never Assessed Sex and Gender Information Value Date Recorded Sex Assigned at Not on file Legal Sex Male 10:32 AM ANATOMICAL EMBALMER Gender Identity Not on file Sexual Orientation Not on file documented as of this encounter Plan of Treatment Not on file documented as of this encounter Procedures Procedure Name Priority Date/Time Associated Diagnosis Comments SARS-COV-2 (COVID-19) IN HOUSE Routine 02/03/2020 3:00 PM CDT documented in this encounter Results * SARS-COV-2 (COVID-19) IN HOUSE (02/03/2020 3:00 PM CDT) COVID-19 PCR Not detected Not detected, Invalid 02/04/2020 8:[address] [facility] Microbiology SPECIMEN FROM NASOPHARYNGEAL STRUCTURE / Unknown Collection / Unknown 02/03/2020 3:00 PM CDT 02/04/2020 12:18 PM CDT Narrative [facility] - 02/04/2020 8:44 PM CDT This Real Time RT-PCR assay was developed and its performance characteristics determined by [facility]. This test has been authorized [...] NETWORK MICROBIOLOGY [address] [place] [address], [facility] [phone] documented in this encounter Visit Diagnoses Not on filedocumented in this encounter Additional Health Concerns Infection Onset Date Last Indicated Resolved Time COVID-19 Under Investigation 02/04/2020 02/03/2020 02/04/2020 8:44 PM CDT documented as of this encounter
--- OUTSIDE RECORDS SUMMARY | 2024-12-25 13:13 | XMS_ITS | Encounter Summary ---
Author Organization [facility] Address [address] [facility] [place] [address] Phone Care Team Providers Care House Worker Name Role Phone Ming Beyer MD Primary Care Provider Aurea Weiss RN Unavailable Unavailable Reason for Visit * Reason Comments Medication Refill Encounter Details Date Type Department Care Team (Late st Contact Info) Description 08/18/2022 Refill [facility] [address] [place] [address] Ming Beyer MD [address] [address] Medication Refill Social History Tobacco Use Types [...] suspected to have Coronavirus/COVID-19? No / Unsure 08/11/2022 2:49 PM PARTS ANALYST documented as of this encounter Miscellaneous Notes * Telephone Encounter - Torrie Garibay RN - 08/19/2022 8:57 AM PARTS ANALYST PDMP 07/18/2022 xanax #60, norco #90 Medication failed the protocol, provider to review and approve the medication order if appropriate. Requested Prescriptions Pending Prescriptions Disp Refills ALPRAZolam 2 MG Tablet [Pharmacy Med Name: ALPRAZOLAM 2MG] 60 Tablet 0 Sig: TAKE ONE TABLET BY MOUTH ONCE DAILY IN THE MORNING AND ONCE AT BEDTIME. Not Delegated - Benzodiazepines Protocol Failed - 08/18/2022 11:32 AM Failed - This refill cannot be [...] [place] 09/09/21 Office Visit Ming Beyer MD [facility] Showing recent visits within past 365 days and meeting all other requirements Future Appointments Date Type Provider Dept 08/25/22 Appointment Elfego Carrillo APRN, [facility] Showing future appointments within next 90 days and meeting all other requirements HYDROcodone-acetaminophen (NORCO) 10-325 MG Tablet [Pharmacy Med Name: HYDROCO/APAP 10-325 TAB [id number]] 90 Tablet 0 Sig: TAKE ONE TABLET BY MOUTH EVERY EIGHT HOURS NEEDED FOR MODERATE TO MORE SEVERE PAIN Not Delegated - Opioid Combinations Protocol Failed - 08/18/2022 11:32 AM Failed - This refill cannot be [...] 12/15/21 Office Visit Ming Beyer MD [facility] 09/09/21 Office Visit Ming Beyer MD [facility] Showing recent visits within past 365 days and meeting all other requirements Future Appointments Date Type Provider Dept 08/25/22 Appointment Elfego Carrillo APRN, T[facility] Isaac Showing future appointments within next 90 days and meeting all other requirements S ANALYST documented in this encounter Plan of Treatment Upcoming Encounters Date Type Department Care Team (Late st Contact Info) Description 01/18/2025 1:00 PM CDT Lab [facility] [address] [address] [facility] Lab/Ancillary 03/01/2025 1:30 PM CDT Office Visit [facility] - [place] [address] [place] [address] Ming Beyer MD #[address] [address] documented as of this encounter Visit Diagnoses Diagnosis 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
--- OUTSIDE RECORDS SUMMARY | 2024-12-25 13:13 | XMS_ITS | Encounter Summary ---
Author Organization [facility] Address [address] [place] [address] Care Team Providers Care Ride Assembly Supervisor Name Role Phone Unavailable Primary Care Provider Unavailabl e Encounter Details Date Type Department Care Team (Late st Contact Info) Description 01/22/2020 Lab Requisition [facility] [address] [place] [address] Horacio Davila MD Cough Social History Tobacco Use Types Packs/Day Years Used Date Smoking Tobacco: Never Assessed Sex and Gender Information Value Date Recorded Sex Assigned at Not on file Legal Sex Male 10:32 AM PUBLISHING DIRECTOR Gender Identity Not on file Sexual Orientation Not on file documented as of this encounter Plan of Treatment Not on file documented as of this encounter Procedures Procedure Name Priority Date/Time Associated Diagnosis Comments SARS-COV-2 (COVID-19) IN HOUSE Routine 01/22/2020 1:31 PM CDT Cough documented in this encounter Results * SARS-COV-2 (COVID-19) IN HOUSE (01/22/2020 1:31 PM CDT) COVID-19 PCR Not detected Not detected, Invalid 01/23/2020 6:28 AM CDT [facility] Microbiology SPECIMEN FROM NASOPHARYNGEAL STRUCTURE / Unknown Collection / Unknown 01/22/2020 1:31 PM CDT 01/22/2020 6:57 PM CDT Narrative [facility] - 01/23/2020 6:28 AM CDT This Real Time RT-PCR assay was developed and its performance characteristics determined by [facility]. This test has been authorized [...] MICROBIOLOGY [address] [place], [place] [address], [facility] [phone] documented in this encounter Visit Diagnoses Diagnosis Cough documented in this encounter Additional Health Concerns Infection Onset Date Last Indicated Resolved Time COVID-19 Under Investigation 01/22/2020 01/22/2020 01/23/2020 6:28 AM CDT COVID-19 Under Investigation 01/26/2020 01/26/2020 01/27/2020 6:42 AM CDT COVID-19 Under Investigation 02/04/2020 02/03/2020 02/04/2020 8:44 PM CDT documented as of this encounter
--- OUTSIDE RECORDS SUMMARY | 2024-12-25 13:13 | XMS_ITS | Encounter Summary ---
Author Organization [facility] Address [address] [facility] [place] [address] Phone Care Team Providers Care Telecom Engineer Name Role Phone Ming Beyer MD Primary Care Provider Aurea Weiss RN Unavailable Unavailable Reason for Visit * Reason Comments Medication Refill Encounter Details Date Type Department Care Team (Late st Contact Info) Description 05/05/2021 Refill [facility] #2 [place] [address] Ming Beyer MD #[address] [address] Medication Refill Social History Tobacco Use Types [...] Telephone Encounter - Salud Rebolledo RN - 05/07/2021 4:29 PM CDT The original prescription was reordered on 05/06/2021 by Ming Beyer MD documented in this encounter Plan of Treatment Upcoming Encounters Date Type Department Care Team (Late st Contact Info) Description 01/18/2025 1:00 PM CDT Lab 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
--- OUTSIDE RECORDS SUMMARY | 2024-12-25 13:13 | XMS_ITS | Clinical Summary ---
Author Organization [facility] Address [address] [facility] [place] [address] Care Team Providers Care Automation Technologist Name Role Phone Ming Beyer MD Primary Care Provider [phone] Allergies No known active allergies Medications ALPRAZolam (XANAX) 2 mg tablet Take 2 mg by mouth 2 times daily. 3 Active apixaban (ELIQUIS) 5 mg tablet Take 1 Tablet by mouth 2 times daily. 2 Active HYDROcodone-cris taminophen (NORCO) 10-325 mg Tablet Take 1 Tablet by mouth. 3 Active insulin detemir U-100 (LEVEMIR) 100 unit/mL pen syringe Inject 5 Units by subcutaneous injection daily at bedtime. 5 units at bedtime 3 Active ALPRAZolam (Xanax) 0.5 mg tabletIndicatio ns:Anxiety state Take 1 Tablet (0.5 mg) by mouth 2 times daily as needed for Anxiety. 60 Tablet 4 Active Additional Information Patient taking differently: 1 mgOral TWO TIMES DAILY PRN, Anxiety, Reported on 06/12/2024 famotidine (PEPCID) 20 mg tablet Take 20 mg by mouth 2 times daily. Active FLUoxetine (PROzac) 40 mg capsule Take 40 mg by mouth daily. Active ibuprofen (MOTRIN) 600 mg tablet Take 600 mg by mouth every 6 hours as needed for Pain, Mild. Active metoprolol tartrate (LOPRESSOR) 25 mg tablet Take 25 mg by mouth 2 times daily. Active tamsulosin (FLOMAX) 0.4 mg capsule Take 0.4 mg by mouth daily. Active Active Problems No known active problems Encounters Date Type Department Care Team Description 11/08/2024 External Device Data [facility] ABSTRACTION Provider, Abstract 10/28/2024 External Device Data [facility] ABSTRACTION Provider, Abstract 10/27/2024 External Device Data [facility] ABSTRACTION Provider, Abstract 10/11/2024 External Device Data [facility] ABSTRACTION Provider, Abstract from Last 3 Months Family History Relation Name Status Comments Brother Daughter Alive Father Mother Sister Social History Tobacco Use Types Packs/Day Years Used Date Smoking Tobacco: Never Smokeless Tobacco: Never Tobacco Cessation:Counseling Given: Not Answered Alcohol Use Standard Drinks/Week Comments Never 0 (1 standard drink = 0.6 oz pur e alcohol) Food Insecurity Answer Date Recorded Patient needs follow up regardin 12/19/2024 Transportation Needs Answer Date Record ed Patient needs follow up regardin 12/19/2024 Housing Stability Answer Date Recorded Social/Environmental Concerns No concerns Utility Needs Answer Date Recorded Patient needs follow up regardin 12/19/2024 Sex and Gender Information Value Date Recorded Sex Assigned at Not on file Legal Sex Male 10:16 AM CDT Gender Identity Not on file Sexual Orientation Not on file Last Filed Vital Signs Vital Sign Reading Time Taken Comments Blood Pressure 132/77 09/04/2024 1:26 PM KICKBOXING INSTRUCTOR Pulse 62 09/04/2024 1:26 PM KICKBOXING INSTRUCTOR Temperature 36.2 C (97.1 F) 09/04/2024 1:26 PM KICKBOXING INSTRUCTOR Respiratory Rate 14 09/04/2024 1:26 PM KICKBOXING INSTRUCTOR Oxygen Saturation 97% 09/04/2024 1:26 PM KICKBOXING INSTRUCTOR Inhaled Oxygen Concentration - - Weight 65.3 kg (144 lb) 09/04/2024 1:26 PM KICKBOXING INSTRUCTOR Height 182.9 cm (6') 06/15/2024 7:43 AM CDT Body Mass Index 19.53 06/15/2024 7:43 AM CDT Plan of Treatment Upcoming Encounters Date Type Department Care Team (Late st Contact Info) Description 02/22/2025 1:15 PM CDT Office Visit [facility] Oncology and Hematology - [facility] Dr Gutierrez [address] [place] [address] Malik Mathew MD [address] [facility] [address] [place] [address] Health Maintenance Due Date Last Done Comments DIABETES ANNUAL FOOT EXAM 1956 DIABETES MICROALBUMIN ANNUAL SCREEN 1956 LDL CHOLESTEROL ANNUAL 1956 DTAP/TDAP/TD VACCINES (1 - Tdap) 1957 PNEUMOCOCCAL VACCINE 50+ YEA RS (1 of 2 - PCV) 1957 ZOSTER VACCINE (1 of 2) 1988 RSV VACCINE (60+ or ) (1 - 1-dose 75+ series) 2013 COVID-19 Vaccine ( - 2023-2 5 season) 2024 12/26/2020, 11/01/2020 DIABETES HBA1C Q 6 MONTHS 02/06/20252023, 05/01/2024, 01/13/2023, Additional history exists DIABETES ANNUAL RETINAL EXAM 03/02/2025 03/02/2024, 01/13/2023 INFLUENZA VACCINE Completed 06/06/2024, , 06/17/2022, Additional history exists Medical Devices Implanted Type Area Customer Sales Consultant Device Identifier Shelf Expiration Date Model / Serial / Lot Cement-06/15/20 Implanted:Qty: 1 on 06/15/2024 by Houston Rahman MD Spine Lumbar 08/22/2026 [id number] / / [id number] Description:Kyphon cement im planted on 06/15/[address] Rahman L1 Insurance MEDICARE PART A AND B MEDICAID [place] MEDICARE PART A AND B MED[place]ID [place] Advance Directives For more information, please contact: [phone] * Full Code (Latest Code Status on File) Date Activated Date Inactivated Comments 06/15/2024 10:55 AM 06/15/2024 3:35 PM Care Teams Automation Technologist Relationship Specialty Start Date End Date Ming Beyer MD #[address] [address] PCP - General Internal Medicine 11/15/23
--- OUTSIDE RECORDS SUMMARY | 2024-12-25 13:13 | XMS_ITS | Encounter Summary ---
Author Organization [facility] Address [address] [facility] [place] [address] Phone Care Team Providers Care Automatic Machine Attendant Name Role Phone Ming Beyer MD Primary Care Provider Aurea Weiss RN Unavailable Unavailable Reason for Visit * Reason Comments Medication Refill Encounter Details Date Type Department Care Team (Late st Contact Info) Description 06/13/2021 Refill [facility] #2 [place] [address] Ming Beyer MD #[address] [address] Medication Refill Social History Tobacco Use Types [...] have Coronavirus / COVID-19? No / Unsure 06/05/2021 2:29 PM CDT documented as of this encounter Miscellaneous Notes * Telephone Encounter - Ming Beyer MD - 06/16/2021 8:55 AM CDT Prescription approved. Please call in * Telephone Encounter - Salud Rebolledo RN - 06/16/2021 8:53 AM CDT Medication failed the protocol, provider to review and approve the medication order if appropriate. Requested Prescriptions Pending Prescriptions Disp Refills Eliquis 5 MG Tablet [Pharmacy Med Name: ELIQUIS 5 MG TAB B-MS] 60 Tablet 5 Sig: TAKE ONE TABLET BY MOUTH TWICE DAILY [facility] Not Delegated - Hematology: Anticoagulants Failed - 06/13/2021 12:32 PM Failed - This refill cannot be delegated Passed - Valid encounter within last 12 months Past Office Visits Recent Outpatient Visits 1 week ago Panic type anxiety neurosis [facility] Ming Machado MD 3 months ago Pain of left hip joint [facility] Ming Machado MD 6 months ago Foot lesion [facility] Ming Machado MD 7 months ago High cholesterol [facility] Ming Machado MD 11 months ago Diabetes 1.5, managed as type 2 (HCC) [facility] Ming Massey MD Upcoming Appointments Future Appointments In 2 months [facility], [facility], [facility] In 2 months Ming Beyer MD [facility] DIRECTOR SERVICE - Recent and Past Visits Recent Visits Date Type Provider Dept 06/05/21 Office Visit Ming Beyer MD [facility] 03/06/21 Office Visit Ming Beyer MD [facility] 12/10/20 Office Visit Ming Beyer MD [facility] 11/04/20 Office Visit Ming Beyer MD [facility] 07/01/20 Office Visit Ming Beyer MD [facility] Showing recent visits within past 460 days with a meds authorizing provider and meeting all other requirements Future Appointments Date Type Provider Dept 09/09/21 Appointment Ming Beyer MD [facility] Showing future appointments within next 90 days with a meds authorizing provider and meeting all other requirements documented in this encounter Plan of Treatment Upcoming Encounters Date Type Department Care Team (Late st Contact Info) Description 01/18/2025 1:00 PM CDT Lab [facility] #[address] [address] Isaac Minor Lab/Ancillary 03/01/2025 1:30 PM CDT [facility] - [place] #2 [place] [address] Ming Beyer MD #[address] [address] documented as of this encounter Visit Diagnoses Not on filedocumented in this encounter Additional Health Concerns Assessment Noted Time PHQ-9 Depression Total Score: 0 01/17/20 20 4:29 PM CDT documented as of this encounter Care Teams Automatic Machine Attendant Relationship Specialty Start Date End Date Ming Beyer MD #[address] [address] PCP - General Family Medicine 08/25/18 Aurea Weiss RN [place] Nurse Roadmaster 12/07/23 12/07/23 documented as of this encounter
--- OUTSIDE RECORDS SUMMARY | 2024-12-25 13:13 | XMS_ITS | Encounter Summary ---
Author Organization [facility] Address [address] [facility] [place] [address] Phone Care Team Providers Care Research Methods Instructor Name Role Phone Ming Beyer MD Primary Care Provider [phone] Aurea Weiss RN Unavailable Unavailable Reason for Visit * Reason Comments Medication Refill Encounter Details Date Type Department Care Team (Late st Contact Info) Description 05/05/2021 Refill [facility] - Family Medicine [facility] #2 [place] [address] Maninder Angelo MD #1 [place] [address] Medication Refill Social History Tobacco Use Types [...] Telephone Encounter - Ming Beyer MD - 05/08/2021 8:22 AM CDT Prescription approved. Please call in * Telephone Encounter - Salud Rebolledo RN - 05/08/2021 8:15 AM CDT Per nursing clinical judgement, provider to review and approve the medication(s) order(s) if appropriate. Requested Prescriptions Pending Prescriptions Disp Refills Ostomy Supplies Misc [Pharmacy Med Name: CONVATEC FLANGE 684351 CONV] 10 Each 1 Sig: USE CONVATEC FLANGE [id number] WITH COLOSTOMY BAG. DX: S/P COLOSTOMY Z93.3 There is no refill protocol information for this order documented in this encounter Plan of Treatment Upcoming Encounters Date Type Department Care Team (Late st Contact Info) Description 01/18/2025 1:00 PM CDT Lab [facility] #[address] [address] [facility] Isaac Lab/Ancillary 03/01/2025 1:30 PM CDT Office Visit [facility] - [place] #2 [place] [address] Ming Beyer MD #[address] [address] documented as of this encounter Visit Diagnoses Diagnosis S/P colostomy (HCC) Colostomy status documented in this encounter Additional Health Concerns Assessment Noted Time PHQ-9 Depression Total Score: 0 01/17/20 20 4:29 PM CDT documented as of this encounter Care Teams Research Methods Instructor Relationship Specialty Start Date End Date Ming Beyer MD #[address] [address] PCP - General Family Medicine 08/25/18 Aurea Weiss, RN [place] Nurse Cfa 12/07/23 12/07/23 documented as of this encounter
--- OUTSIDE RECORDS SUMMARY | 2024-12-25 13:13 | XMS_ITS | Encounter Summary ---
Author Organization [facility] Address [address] [facility] [place] [address] Phone Care Team Providers Care Supervisor Special Effects Name Role Phone Ming Beyer MD Primary Care Provider Aurea Weiss RN Unavailable Unavailable Reason for Visit * Reason Onset Date Comments Medication Refill Medication Management 05/20/2020 ALPRAZolam 2 MG Encounter Details Date Type Department Care Team (Late st Contact Info) Description 05/16/2020 Refill [facility] - Family [facility] #2 [place] [address] Ming Beyer MD #[address] [address] Medication Refill; Medication Management (ALPRAZolam 2 MG ) Social History Tobacco Use Types Packs/Day Years [...] Telephone Encounter - Ming Beyer MD - 05/20/2020 12:55 PM CDT Prescription pending signature * Telephone Encounter - Kalina Sheridan - 05/20/2020 12:43 PM CDT Patient's daughter, Kelly (PRD), calling stating she called last week to make sure her dad didn't run out of Alprazolam and it still didn't get filled. See notes below where request was made but medication not attached. Kelly states her dad is fit to be tied and was very angry all weekend. Kelly asking that this be filled today. Medication pending for review and approval. * Telephone Encounter - Ming Beyer MD - 05/17/2020 5:57 PM CDT Prescription pending signature * Telephone Encounter - Radha Costa RN - 05/17/2020 4:48 PM CDT Patients daughter calling regarding refills for norco and xanax.he will be out this weekend and he is getting anxious about it.refills are pended.asking that this please be addressed today. * Telephone Encounter - Katherine Schneider RN - 05/17/2020 3:47 PM CDT NERISSA: 02-21-2020 anxiety, alzhieimers Next OV: 06-24-2020 for lab 07-01-2020 for anxiety follow up documented in this encounter Plan of Treatment Upcoming Encounters Date Type Department Care Team (Late st Contact Info) Description 01/18/2025 1:00 PM CDT Lab [facility] [place] [facility] #2 [facility] [address] [place] [address] Isaac Minor Lab/Ancillary 03/01/2025 1:30 PM CDT Office Visit [facility] #2 [place] [address] Ming Beyer MD #[address] [address] documented as of this encounter Visit Diagnoses Diagnosis Pain of left hip joint 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
--- OUTSIDE RECORDS SUMMARY | 2024-12-25 13:13 | XMS_ITS | Encounter Summary ---
Author Organization [facility] Address [address] [facility] [place] [address] Phone Care Team Providers Care Books Binder Name Role Phone Ming Beyer MD Primary Care Provider Aurea Weiss RN Unavailable Unavailable Reason for Visit * Reason Comments Medication Refill Encounter Details Date Type Department Care Team (Late st Contact Info) Description 03/09/2023 Refill [facility] Family Medicine [facility] #2 [place] [address] Ming Beyer MD #[address] [address] Medication Refill Social History Tobacco Use Types [...] encounter Miscellaneous Notes * Telephone Encounter - Saldu Rebolledo RN - 03/12/2023 7:08 AM CDT Refused Yesterday (03/11/2023): Patient needs appointment ALPRAZolam 2 MG Tablet Sig: Take 1 Tablet by mouth in the morning and at bedtime. Disp: 60 Tablet ? Refills: 0 Received from: Telephone See duplicate encounter * Telephone Encounter - Salud Rebolledo RN - 03/11/2023 2:54 PM CDT Already pended to PCP * Telephone Encounter - Quynh Bustillo RN - 03/10/2023 1:27 PM CDT Duplicate request documented in this encounter Plan of Treatment Upcoming Encounters Date Type Department Care Team (Late st Contact Info) Description 01/18/2025 1:00 PM CDT Lab [facility] #[address] [address] [facility] Lab/Ancillary 03/01/2025 1:30 PM CDT Office Visit [facility] - Family Medicine - [place] #2 [place] [address] Ming Beyer MD #[address] [address] documented as of this encounter Visit Diagnoses Diagnosis 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
--- OUTSIDE RECORDS SUMMARY | 2024-12-25 13:13 | XMS_ITS | Clinical Summary ---
Author Organization [facility] [employer] Address [address] [facility] [place] [address] Care Team Providers Care Opener Name Role Phone Unavailable Primary Care Provider Unavailabl e Source Comments [facility] [employer],non-owned Affiliates and Associated Physician Practices is amultiple site organization consisting of ambulatory clinics and hospital sitesin [place], [place], [place] and [place]. This disclosure is being madepursuant to the Care Everywhere program and may not contain all information available regarding this patient. Last updated 18.[facility] [employer] Social History Tobacco Use Types Packs/Day Years Used Date Smoking Tobacco: Never Assessed Sex and Gender Information Value Date Recorded Sex Assigned at Not on file Legal Sex Male 10:32 AM BIOINFORMATICIST Gender Identity Not on file Sexual Orientation Not on file Plan of Treatment Health Maintenance Due Date Last Done Comments MEDICARE AWV 12 MONTHS 1938 DTAP/TDAP/TD VACCINES (1 - Tdap) 1957 PNEUMOCOCCAL VACCINE 50+ (1 of 1 - PCV) 1988 ZOSTER VACCINE (1 of 2) 1988 Respiratory Syncytial Virus (RSV) Vaccine Pt: or over 60 yrs (1 - 1-dose 75+ series) 2013 COVID-19 VACCINE ( - 2023-2 5 season) 2024 DEPRESSION SCREENING 08/23/2024 INFLUENZA VACCINE (Season Ended) 2025 HEPATITIS B VACCINE Aged Out No longe r eligible based on patient's age to complete this topic HIB VACCINE Aged Out No longer eligi ble based on patient's age to complete this topic HPV VACCINE Aged Out No longer eligi ble based on patient's age to complete this topic MENINGOCOCCAL (Group B) VACC INE SHARED DECISION-MAKING Aged Out No longer eligibl e based on patient's age to complete this topic MENINGOCOCCAL GROUPS A/C/Y/W VACCINE Aged Out No longer eligible b ased on patient's age to complete this topic Insurance MEDICARE * Guarantor: KENNETH ANDRADE Account Type Relation to Patient Date of Phone Billing Address Personal/Family [address] [place] [address] MEDICARE [facility] MEDICAID * Guarantor: KENNETH ANDRADE Account Type Relation to Patient Date of Phone Billing Address Personal/Family [address] [place] [address] MEDICARE [facility] MEDICAID * Guarantor: KENNETH ANDRADE Relation to Patient Date of Phone Billing Address Personal/Family [address] [place] [address] MEDICARE [facility] MEDICAID
[2024-12-25 13:48] LABS: Estimated Glomerular Filt Rate 25
== END 2024-12-25 12:50 | disposition home or self-care (01) ==
PROVIDERS: PCP Internal Medicine; Visit Provider Internal Medicine Hematology & Oncology
DX: C34.11 Malignant neoplasm of upper lobe, right bronchus or lung (principal); R91.8 Other nonspecific abnormal finding of lung field
CPT/HCPCS: 71250

== ENCOUNTER 2025-02-09 13:09 | Emergency (ER) | payer MEDICARE, SELFPAY ==
[2025-02-09] VITALS (11 sets, daily range): BP systolic 117–182; BP diastolic 69–99; PULSE 62–76; RESP 15–16; TEMP 36.6–36.7; O2SAT 96–100
--- NOTE | ~2025-02-09 | CT_ITS ---
EXAMINATION: CTA chest abdomen pelvis DATE: 02/09/2025 15:17 CDT INDICATION: Left-sided abdominal pain. Personal history of right-sided lung cancer post radiation. TECHNIQUE: Computed tomographic angiography (CTA) of the chest was performed, along with multiple con tiguous axial images of the abdomen and pelvis with 100 mL Omnipaque-350 intravenous contrast. The do se-length product was 771.22 mGy-cm. Maximum intensity projection 3D-reconstructions of the aorta and other arteries were constructed by the technologist on a separate workstation. Evaluation of the intra-abdominal and pelvic contents is limited secondary to streak artifact from th e patient's bilateral upper extremities overlying the abdomen FINDINGS/OBSERVATIONS: PULMONARY ARTERIES: Bolus timing not set for the detection of pulmonary emboli. The main pulmonary artery is not enlarged. THORACIC AORTA: Trace aneurysmal dilatation within the ascending aorta measuring 4.1 x 4.1 cm. Mural thickening within the thoracic and abdominal aorta with calcified atherosclerotic disease. No aortic dissection is present. The great vessels are intact LUNGS: Bibasilar atelectasis. Post radiation change within the right upper upper and right middle lobes. The remainder of the lungs are clear. MEDIASTINUM: No morphologically suspicious or pathologically enlarged lymph nodes are identified with in the mediastinum or bilateral axilla. BONES OF THE CHEST: No acute fracture. No significant degenerative disease. No lytic or blastic lesions. HEART: The heart is enlarged, without pericardial effusion. LIVER: Punctate calcifications identified within the hepatic parenchyma, suggesting prior granulomato us disease. The remainder of the liver otherwise enhances homogeneously and is not enlarged. GALLBLADDER AND BILIARY SYSTEM: The gallbladder is minimally distended, contains dependent stones and is otherwise unremarkable. PANCREAS: The pancreas enhances homogeneously without ductal dilatation. SPLEEN: Punctate calcifications identified within the splenic parenchyma, suggesting prior granulomatous dise ase. The remainder of the spleen otherwise enhances homogeneously and is not enlarged. KIDNEYS: A rounded well-circumscribed focus of fluid attenuation is identified within the interpolar region of the left kidney measuring 3.6 x 4.5 x 4.0 cm (anterior to posterior x medial to lateral x c ranial to caudal dimension). Prominent bilateral renal pelvis detected, without patricia hydronephrosis, suggesting bilateral chronic UPJ stenosis. No renal calculi are present. ADRENAL GLANDS: Unremarkable. GASTROINTESTINAL TRACT: Mural thickening within the ascending colon with surrounding inflammatory change. Mural thickening is also present within the left lower quadrant end ostomy with surrounding inflammat ory change. APPENDIX: The appendix is not definitively visualized. However, no pericecal inflammatory change is identified suggest the presence of acute appendicitis. 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 The proximal abdominal aorta measures 2.9 x 3.2 cm. The mid abdominal aorta measures 2.9 x 2.7 cm. The distal abdominal aorta measures 3.0 x 3.0 cm. The right common iliac artery measures 1.5 x 1.6 cm. The left common iliac artery measures 1.4 x 1.4 cm LYMPH NODES: No pathologically enlarged or morphologically suspicious lymph nodes within the retroperitoneum or at the root of the mesentery. PELVIC STRUCTURES: Evaluation of the pelvis is limited secondary to streak artifact from the patient's left hip prosthes is and right hip hardware. BODY WALL AND MUSCULOSKELETAL: Significant degenerative disease within the lumbosacral spine, with evidence of prior vertebral augme ntation at the level of L1 without worship of height. Fat-containing left inguinal hernia. IMPRESSION: Trace aneurysmal dilatation of the ascending thoracic aorta. Aneurysmal dilatation of the abdominal aorta for which surveillance is recommended. Mural thickening within the ascending colon and distal colon within the and ostomy in the left lower quadrant with surrounding inflammatory change. Fat-containing left inguinal hernia. Cholelithiasis Reviewed, dictated and finalized at location A. IMPRESSION: Trace aneurysmal dilatation of the ascending thoracic aorta. Aneurysmal dilatation of the abdominal aorta for which surveillance is recommen ded. Mural thickening within the ascending colon and distal colon within the and ost jose alejandro in the left lower quadrant with surrounding inflammatory change. Fat-containing left inguinal hernia. Cholelithiasis
[2025-02-09 13:38] LABS: Basophils Absolute Auto 0.1 K/mm3 (0.0-0.1); Basophils Percent Auto 0.8 % (0.2-1.2); Eosinophils Absolute Auto 0.6 K/mm3 (0-0.3); Eosinophils Percent Auto 7.2 % (0-4.4); Hematocrit 32.8 % (42.0-52.0); Hemoglobin 10.5 g/dL (14.0-18.0); Immature Granulocyte Absolute 0.02 K/mm3 (0.00-0.031); Immature Granulocyte Percent A 0.3 % (0-0.5); Lymphocytes Absolute Auto 1.45 K/mm3 (0.9-3.2); Lymphocytes Percent Auto 18.3 % (18.3-44.2); Mean Corpuscular Hemoglobin 27.5 pg (26-34); Mean Corpuscular Volume 85.9 fl (80-100); Mean Platelet Volume 9.4 fl (7.4-10.4); Monocytes Absolute Auto 0.5 K/mm3 (0.1-0.6); Monocytes Percent Auto 6.3 % (2.6-8.5); Neutrophils Absolute Auto 5.3 K/mm3 (1.3-6.7); Neutrophils Percent Auto 67.1 % (45.5-73.1); Platelet Count Result 252 k/mm3 (150-375); Red Blood Count 3.82 M/mm3 (4.6-6.20); Red Cell Distribution Width 14.8 % (11.5-14.5); White Blood Count 7.9 K/mm3 (4.5-10.0)
--- NOTE | 2025-02-09 13:38 | ED_ITS ---
HPI - Abdominal Pain General Chief Complaint: Abdominal Pain Stated Complaint: abd pain Time Seen by Provider: 02/09/25 13:12 Source: patient Mode of arrival: ambulatory Limitations: no limitations History of Present Illness HPI narrative: This is a 84 year old male that presents to the ER for left sided abdominal pain. Ongoing over the last 3 days. Reports he feels like something is going to burst. Denies fever, vomiting, diarrhea. Related Data Home Medications ?Medication ?Instructions ?Recorded ?Confirmed ?Last Taken ?Type tamsulosin 0.4 mg capsule 0.4 mg PO DAILY 06/18/22 09/05/24 09/04/24 History famotidine 20 mg tablet 20 mg PO DAILY 11/04/23 09/05/24 09/04/24 History acetaminophen 325 mg capsule 650 mg PO BID PRN Pain 01/28/24 09/05/24 Unknown History ibuprofen 600 mg tablet 600 mg PO TID PRN Pain 01/28/24 09/05/24 Unknown History metoprolol succinate 25 mg 25 mg PO QAM 01/28/24 09/05/24 09/04/24 History tablet,extended release 24 hr fluoxetine 40 mg capsule 40 mg PO DAILY 06/21/24 09/05/24 09/04/24 History alprazolam 2 mg tablet 2 mg PO BID PRN panic attack(s) 09/05/24 09/05/24 09/03/24 History apixaban 5 mg tablet (Eliquis) 5 mg PO Q12H 09/05/24 09/05/24 09/04/24 History insulin glargine 100 unit/mL (3 5 unit subcut QHS 09/05/24 09/05/24 09/03/24 History mL) subcutaneous pen (Basaglar KwikPen U-100 Insulin) sennosides 8.6 mg-docusate sodium 2 tab PO BID PRN constipation 09/05/24 09/05/24 Unknown History 50 mg tablet (Senokot-S) Allergies Allergy/AdvReac Type Severity Reaction Status Date / Time No Known Allergies Allergy Verified 02/09/25 13:31 Review of Systems 2 Review of Systems: All systems reviewed & are unremarkable except as noted in HPI and below PMFSH Past Medical History Medical History Chronic anticoagulation Paroxysmal atrial fibrillation Benign prostatic hyperplasia Subdural hematoma Anemia of chronic disease Chronic renal failure, stage 3 (moderate) Dementia Chronic narcotic use Cerebrovascular accident (10/27/18) Anxiety Hyperlipidemia Hypertension Insulin dependent diabetes mellitus Surgical History Surgical History History of left hip hemiarthroplasty History of inguinal hernia repair History of colostomy Family History Family History Mother Diabetes mellitus Congestive heart failure Father Cerebrovascular accident Daughter Cancer Social History Social History (Updated 09/05/24 @ 04:08 by Kyung Felder) Social History: Healthcare power of workers compensation defense attorney: Kelly Fernandez, daughter. Code status: Full code. Smoking packs per day: 0.5 Smoking cigarettes per day: 10.0 Years smoked: 20 Smoking pack-years: 10.00 Smoking status: Former smoker Tobacco type: cigarettes Alcohol intake: former Substance use: never Substance use type: does not use Do You Feel Safe in your Home?: Yes Lack of Transportation: No Lack of Food: Never True Current Housing: I Have Housing Concerned About Future Housing: No Difficulty Paying Gas/Electric Bills: No Difficulty Paying for Meds: No Currently Unemployed: No Education: High School Diploma/GED Difficulty w/ Childcare or Family Care: No Living arrangements: with family Additional living arrangements comments: . Had 3 children. Rehabbed in past at [facility]. Lives with daughter Kelly Occupation/Education: retired Additional occupation/education comments: Retired banker. Gender identity (if verbalized by the patient): Male Spiritual care concerns: No Exam 2 Narrative: GENERAL: Elderly, well-nourished, and in no acute distress. HEAD: Normocephalic, atraumatic. EYES: EOMI. ENT: Nares clear, no rhinorrhea or epistaxis. Mucous membranes moist. Oropharynx without tonsillar hypertrophy exudate or other lesions. CHEST: Clear to auscultation. No respiratory distress. No wheezes rales or rhonchi HEART: Regular rate and rhythm. No murmur heard. Normal peripheral pulses. ABDOMEN: Soft, nondistended, normal active bowel sounds. Tender to palpation throughout the left side of the abdomen, without guarding. Ostomy in place without surrounding redness or abnormal drainage EXTREMITIES: Normal range of motion. No edema. SKIN: Warm, dry, no rash. NEURO: No focal deficits. Alert and oriented x3. PSYCH: Normal mood and affect Course Course Emergency Course: Patient and family updated on workup. We spoke about further admission for IV antibiotics versus discharge home with oral antibiotics. Patient would like to be discharged at this time. Will give initial dose IV Vital Signs Vital signs: Vital Signs Temperature 98.1 F 02/09/25 13:09 Pulse Rate 62 02/09/25 13:09 Respiratory Rate 16 02/09/25 13:09 Blood Pressure 155/91 H 02/09/25 13:09 Pulse Oximetry 96 02/09/25 13:09 Oxygen Delivery Room Air 02/09/25 13:09 Temperature 98.1 F 02/09/25 13:09 Pulse Rate 64 02/09/25 17:10 Respiratory Rate 16 02/09/25 17:10 Blood Pressure 182/99 H 02/09/25 17:10 Pulse Oximetry 100 02/09/25 17:10 Oxygen Delivery Room Air 02/09/25 13:09 MDM - Abdominal Pain MDM Narrative Medical decision making narrative: Patient presents the emergency department for left-sided abdominal pain. He is afebrile and nontoxic appearing. His vitals are stable. Cbc without leukocytosis. Hemoglobin appears stable. Kidney function appears stable. Urine without evidence of infection. CT abdomen and pelvis shows aortic aneurysm. Mural thickening within the ascending colon and distal colon within the ostomy with surrounding inflammatory change. Patient and family updated on workup. We spoke about further admission for IV antibiotics versus discharge home with oral antibiotics. Patient would like to be discharged at this time. Will give initial dose IV. He is to follow up with primary provider. He was given warnings to return to the ER Differential Diagnosis Differential diagnosis: Likely calculus of kidney, diverticulitis, small bowel obstruction and other (colitis) Lab Data Attestation: I reviewed the patient's lab results. 02/09/25 13:29 02/09/25 13:57 Labs: Lab Results 02/09/25 02/09/25 02/09/25 Range/Units 13:29 13:57 14:31 WBC 7.9 (4.5-10.0) K/mm3 RBC 3.82 L (4.6-6.20) M/mm3 Hgb 10.5 L (14.0-18.0) g/dL Hct 32.8 L (42.0-52.0) % MCV 85.9 (80-100) fl MCH 27.5 (26-34) pg MCHC 32.0 (32-36) g/dl RDW 14.8 H (11.5-14.5) % Plt Count 252 (150-375) k/mm3 MPV 9.4 (7.4-10.4) fl Immature Gran % (Auto) 0.3 (0-0.5) % Neut % (Auto) 67.1 (45.5-73.1) % Lymph % (Auto) 18.3 (18.3-44.2) % Republic % (Auto) 6.3 (2.6-8.5) % Eos % (Auto) 7.2 H (0-4.4) % Baso % (Auto) 0.8 (0.2-1.2) % Lymph # (Auto) 1.45 (0.9-3.2) K/mm3 [place] # (Auto) 0.5 (0.1-0.6) K/mm3 Eos # (Auto) 0.6 H (0-0.3) K/mm3 Baso # (Auto) 0.1 (0.0-0.1) K/mm3 Abs Immat Gran (auto) 0.02 (0.00-0.031) K/mm3 Absolute Neuts (auto) 5.3 (1.3-6.7) K/mm3 Absolute Nucleated RBC 0.000 (0.0-0.012) K/mm3 Nucleated RBC % 0.0 (0.0-0.2) % Sodium 135 L (137-145) mmol/L Potassium 4.5 (3.4-5.0) mmol/L Chloride 101 (98-107) mmol/L Carbon Dioxide 22 (22-30) mmol/L Anion Gap 12 (4-12) mmol/L BUN 24 H D (9-20) mg/dL Creatinine 2.07 H (0.7-1.3) mg/dL Estim Creat Clear Calc 22 ml/min Estimated GFR 31 L (59 - ) Glucose 106 (65-110) mg/dL Calcium 8.9 (8.4-10.2) mg/dL Total Bilirubin 0.3 (0.2-1.3) mg/dL AST 19 (17-59) U/L ALT 12 (6-50) U/L Alkaline Phosphatase 76 (38-126) U/L Total Protein 7.3 (6.3-8.2) g/dL Albumin 3.7 (3.5-5.1) g/dL Lipase 481 H (23-300) U/L Urine Color Yellow (Yellow) Urine Appearance Clear (Clear) Urine pH 5.5 (5.0-9.0) Ur Specific [place] 1.007 (1.001-1.035) Urine Protein 1+ H (Negative) mg/dL Urine Glucose (UA) Negative (Negative) mg/dL Urine Ketones Negative (Negative) mg/dL Ur Blood (Man) 3+ H (Negative) Urine Nitrate Negative (Negative) Urine Bilirubin Negative (Negative) Urine Urobilinogen 0.2 (<2.0) mg/dL Leukocyte Esterase Rfl Trace H (Negative) DOMONIQUE/UL Urine RBC 0-2 (0-2) /hpf Urine WBC 0-5 (0-3) /hpf Ur Squamous Epith Cells None seen (Few) /hpf Urine Bacteria None seen /hpf Urine Casts 0-2 Imaging Data Radiologist's impression: ITS Impressions Chest/Abdomen/Pelvis CTA 02/09/25 15:15 IMPRESSION: Trace aneurysmal dilatation of the ascending thoracic aorta. Aneurysmal dilatation of the abdominal aorta for which surveillance is recommended. Mural thickening within the ascending colon and distal colon within the and ostomy in the left lower quadrant with surrounding inflammatory change. Fat-containing left inguinal hernia. Cholelithiasis Critical Care Time Critical Care Time Critical Care Time: No Discharge Plan Discharge Clinical Impression: Colitis Abdominal aortic aneurysm Qualifiers: Abdominal aorta location: unspecified Presence of rupture: without rupture Q ualified Code(s): I71.40 - Abdominal aortic aneurysm, without rupture, unspecified Patient Disposition: Home Condition: Stable Instructions: Antibiotic Form, Colitis (ED) Additional Instructions: Return to the ER if you experience fever, abdominal pain with nausea and vomiting, you are unable to keep down liquids or solids, blood in the stool, pain or burning with urination, blood in the urine or any other symptoms that are concerning to you Small, frequent meals. [place] diet. Remain well hydrated. Take oral antibiotics as prescribed Follow up with your primary care doctor Patient Language: Citizen [place] Prescriptions: New metronidazole 500 mg tablet 500 mg PO Q8H 4 Days Qty: 12 0RF cefdinir 300 mg capsule 300 mg PO Q12H 4 Days Qty: 8 0RF No Action tamsulosin 0.4 mg capsule 0.4 mg PO DAILY ibuprofen 600 mg Tablet 600 mg PO TID PRN (Reason: Pain) acetaminophen 325 mg Capsule 650 mg PO BID PRN (Reason: Pain) metoprolol succinate 25 mg tablet extended release 24 hr 25 mg PO QAM fluoxetine 40 mg capsule 40 mg PO DAILY sodium bicarbonate 650 mg Tablet 650 mg PO BID Qty: 60 0RF docusate sodium 100 mg Capsule 100 mg PO Q12H PRN (Reason: Constipation) Qty: 60 0RF insulin glargine [Basaglar KwikPen U-100 Insulin] 100 unit/mL (3 mL) insulin pen 5 unit SUBCUT QHS Eliquis 5 mg tablet 5 mg PO Q12H alprazolam 2 mg tablet 2 mg PO BID PRN (Reason: panic attack(s)) sennosides-docusate sodium [Senokot-S] 8.6-50 mg Tablet 2 tab PO BID PRN (Reason: constipation) amoxicillin-pot clavulanate [Augmentin] 500-125 mg Tablet 1 tablet PO Q12HR Qty: 2 0RF alprazolam 0.5 mg Tablet 2 mg BYMOUTH BID PRN (Reason: anxiety) Qty: 8 0RF hydralazine 10 mg Tablet 10 mg PO QID Qty: 56 0RF famotidine 20 mg tablet 20 mg PO DAILY Follow-up/Referrals: Kayleen,Ming Briceno MD [Primary Care Provider] -
[2025-02-09 14:15] LABS: Alanine Aminotransferase 12 U/L (6-50); Albumin Level 3.7 g/dL (3.5-5.1); Alkaline Phosphatase 76 U/L (38-126); Anion Gap 12 mmol/L (4-12); Aspartate Amino Transferase 19 U/L (17-59); Bilirubin,Total 0.3 mg/dL (0.2-1.3); Blood Urea Nitrogen 24 mg/dL (9-20); Calcium 8.9 mg/dL (8.4-10.2); Carbon Dioxide 22 mmol/L (22-30); Chloride 101 mmol/L (98-107); Estimated CRCL calculation 22 ml/min; Estimated Glomerular Filt Rate 31; Glucose 106 mg/dL (65-110); Lipase 481 U/L (23-300); Potassium 4.5 mmol/L (3.4-5.0); Sodium 135 mmol/L (137-145); Total Protein 7.3 g/dL (6.3-8.2)
[2025-02-09 14:40] LABS: Add Urine Microscopic? YES; Appearance Urine Clear (Clear); Bacteria Urine None Seen /hpf; Bilirubin Urine Negative (Negative); Blood Urine 3+ (Negative); Color Urine Yellow (Yellow); Glucose Urine UA Negative (Negative); Ketones Urine Negative (Negative); Leukocyte Esterase Ur Trace LEU/UL (Negative); Nitrate Urine Negative (Negative); Non Pathogenic Casts 0-2; Protein Urine 1+ mg/dL (Negative); RBC Urine 0-2 /hpf (0-2); Specific Grav Ur 1.007 (1.001-1.035); Squamous Epithelial Cell Urine None Seen /hpf (Few); Urobilinogen Urine 0.2 mg/dL (<2.0); WBC Urine 0-5 /hpf (0-3); pH Urine 5.5 (5.0-9.0)
[2025-02-09] MEDS: MORPHINE SULFATE (*CRX) 4 MG/ML INJ IV PUSH (17:10)
[2025-02-09] MEDS: ONDANSETRON INJ 4 MG/2 ML VIAL IV PUSH (17:10)
[2025-02-09] MEDS: metroNIDAZOLE 500 MG/ISO 100ML 500 MG/100 ML BAG 100 MG IVPB (18:39)
== END 2025-02-09 20:33 | disposition home or self-care (01) ==
PROVIDERS: Emergency Provider Physician Assistant; PCP Internal Medicine
DX: K52.9 Noninfective gastroenteritis and colitis, unspecified (principal); I71.40 Abdominal aortic aneurysm, without rupture, unspecified; Z79.4 Long term (current) use of insulin; Z79.01 Long term (current) use of anticoagulants; I48.0 Paroxysmal atrial fibrillation; N18.30 Chronic kidney disease, stage 3 unspecified; F03.90 Unspecified dementia, unspecified severity, without behavioral disturbance, psychotic disturbance, mood disturbance, and anxiety; E78.5 Hyperlipidemia, unspecified; E11.22 Type 2 diabetes mellitus with diabetic chronic kidney disease; I12.9 Hypertensive chronic kidney disease with stage 1 through stage 4 chronic kidney disease, or unspecified chronic kidney disease; Z87.891 Personal history of nicotine dependence
CPT/HCPCS: 36415; 71275; 74174; 80053; 81001; 83690; 85025; 96365; 96367; 96375; 99284; J0696; J1836; J2270; J2405; Q9967

== ENCOUNTER 2025-02-21 13:33 | Outpatient (CLI) | payer MEDICARE, SELFPAY ==
--- OUTSIDE RECORDS SUMMARY | 2025-02-21 13:42 | XMS_ITS | Clinical Summary ---
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/28/2022 Diabetes [...] on file Legal Sex Male 5:50 PM CONTINUITY TESTER Gender Identity Not on file Sexual Orientation Not on file Obstetrics History Last Filed Vital Signs Vital Sign Reading Time Taken Comments Blood Pressure 151/92 08/26/2022 7:55 AM CONTINUITY TESTER Pulse 83 08/26/2022 7:55 AM CONTINUITY TESTER Temperature 36.9 C (98.4 F) 08/26/2022 7:55 AM CONTINUITY TESTER Respiratory Rate 16 08/26/2022 7:55 AM CONTINUITY TESTER Oxygen Saturation 92% 08/26/2022 7:55 AM CONTINUITY TESTER Inhaled Oxygen Concentration - - Weight 75 kg (165 lb 5.5 oz) 08/16/2022 6:55 AM CONTINUITY TESTER Height 182.9 cm (6') 08/16/2022 6:55 AM CONTINUITY TESTER Body Mass Index 22.42 08/16/2022 6:55 AM CONTINUITY TESTER Plan of Treatment Health Maintenance Due Date [...] season) 2024 12/26/2020, 11/01/2020 Influenza Vaccine (#1) 2025 , 05/23/2022, 06/05/2021, Additional history exists Procedures Procedure Name Priority Date/Time Associated Diagnosis Comments EGFR Routine 08/26/2022 1:18 AM CONTINUITY TESTER LIPID PANEL STAT 08/16/2022 8:07 AM CONTINUITY TESTER HEMOGLOBIN A1C Routine 08/16/2022 12:17 AM CONTINUITY TESTER from Last 3 Months or Most Recently Relevant to Health Maintenance Results * (ABNORMAL) eGFR (08/26/2022 1:18 AM CONTINUITY TESTER) eGFR 42(L) 90 - 130 mL/min/1. 73 [...] last reviewed 2021. Blood 08/26/2022 1:18 AM CONTINUITY TESTER 08/26/2022 1:51 AM CONTINUITY TESTER Quynh Duron MD LAB BLOOD ORDERABLES Final Result [facility] [place] [address] * (ABNORMAL) Lipid panel (08/16/2022 8:07 AM CONTINUITY TESTER) Cholesterol 184 30 - 199 mg/dL PHYLLIS [...] on 2018. HDL 30(L) >=40 mg/dL [facility] Comment: Interpretive Data Ages < or = [...] on 2018. LDL, calculated 126 <=129 mg/dL [facility] Comment: Interpretive Data Ages < or = [...] on 2018. Non-HDL Cholesterol 154 mg/dL [facility] Comment: Interpretive Data Ages < or = [...] last revised on 2018. Chol/HDL ratio 6 [facility] Blood 08/16/2022 8:07 AM CONTINUITY TESTER 08/16/2022 8:38 AM CONTINUITY TESTER Result [facility] Quynh Duron MD LAB BLOOD ORDERABLES Final Result Performing Organization Address City/State/[facility] Co de Phone Number [facility] [place] [address] * (ABNORMAL) Hemoglobin A1c (08/16/2022 12:17 AM CONTINUITY TESTER) [facility] Hgb A1C 7.6(H) 4.0 - 5.6 % [facility] Comment:Testing performed by : [facility], [place]., [address] Estimated Average Glucose 171 mg/dL [facility] Comment: The ADA recommends reporting an estimated Average Glucose (eAG) with all Hemoglobin A1c results using the equation derived from a study of 507 normal and diabetic adults. Minority populations were underrepresented and children were not included. (Diabetes Care 31:9352-3695, 2008). The eAG is not equivalent to a fasting glucose. Testing performed by: [place]., [address] Blood 08/16/2022 12:1 7 AM CONTINUITY TESTER 08/16/2022 5:29 PM CONTINUITY TESTER Result [facility] Quynh Duron MD LAB BLOOD ORDERABLES Final Result Performing Organization Address [facility] Co de Phone Number [facility] [place] [address] from Last 3 Months or Most Recently Relevant to Health Maintenance Insurance MEDICARE IDPA MEDICARE IDPA MEDICARE IDPA Advance Directives For more information, please contact: [phone] * Full Code (Latest Code Status on File) Date Activated Date Inactivated Comments 08/16/2022 7:01 AM 08/26/2022 4:13 PM * Full Code Date Activated Date Inactivated Comments 10/27/2018 10:39 PM 10/31/2018 9:46 PM Care Teams Supervisor Power Reactor Relationship Specialty Start Date End Date Ming Beyer MD [address] [address] PCP - General Family Medicine 05/04/22
--- OUTSIDE RECORDS SUMMARY | 2025-02-21 13:42 | XMS_ITS | Encounter Summary ---
Author Organization [facility] Address [address] [facility] [place] [address] Phone Care Team Providers Care Washing Machine Operator Name Role Phone Ming Beyer MD Primary Care Provider [phone] Aurea Weiss RN Unavailable Unavailable Reason for Visit * Reason Onset Date Comments Medication Refill Medication Management 05/20/2020 ALPRAZolam 2 MG Encounter Details Date Type Department Care Team (Late st Contact Info) Description 05/16/2020 Refill [facility] Family [facility] [address] [place] [address] Ming Beyer MD [address] [address] Medication Refill; Medication Management (ALPRAZolam 2 MG [...] Care Team (Late st Contact Info) Description 04/24/2025 2:15 PM CDT Office Visit [facility] [address] [place] [address] Ming Beyer MD [address] [address] documented as of this encounter Visit Diagnoses Diagnosis Pain of left hip joint 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
--- OUTSIDE RECORDS SUMMARY | 2025-02-21 13:42 | XMS_ITS | Encounter Summary ---
Author Organization [facility] Address [address] [facility] [place] [address] Phone Care Team Providers Care Field Merchandiser Name Role Phone Ming Beyer MD Primary Care Provider [phone] Aurea Weiss RN Unavailable Unavailable Reason for Visit * Reason Comments Medication Refill Encounter Details Date Type Department Care Team (Late st Contact Info) Description 01/08/2021 Refill [facility] - Family Medicine [facility] [address] [place] [address] Ming Beyer MD [address] [address] Medication Refill Social History Tobacco Use Types [...] Outpatient Visits 4 weeks ago Foot lesion [facility] Ming Machado MD 2 months ago High cholesterol [facility] Ming Machado MD 6 months ago Diabetes 1.5, managed as type 2 (HCC) [facility] Ming Massey MD 10 months ago Panic type anxiety neurosis [facility] Ming Machado MD 11 months ago Penis pain [facility] Ming Massey MD Upcoming Appointments Future Appointments In 1 month [facility]IAN [facility], [facility] In 1 month Ming Beyer MD [facility] BARREL DRILLER - Recent and Past Visits Recent Visits [...] Provider Dept 03/06/21 Appointment Ming Beyer MD [facility] Showing future appointments within next 90 days with a meds authorizing provider and meeting all other requirements documented in this encounter Plan of Treatment Upcoming Encounters Date Type Department Care Team (Late st Contact Info) Description 04/24/2025 2:15 PM CDT Office Visit [facility] - Family Medicine - [place] [address] [place] [address] Ming Beyer MD [address] [facility] [place] [address] documented as of this encounter Visit Diagnoses Diagnosis Pain of left hip joint documented in this encounter Additional Health Concerns Assessment Noted Time PHQ-9 Depression Total Score: 0 01/17/20 20 4:29 PM CDT documented as of this encounter Care Teams Field Merchandiser Relationship Specialty Start Date End Date Ming Beyer MD [address] [address] PCP - General Family Medicine 08/25/18 Aurea Weiss RN [place] Nurse Photographer'S Model 12/07/23 12/07/23 documented as of this encounter
--- OUTSIDE RECORDS SUMMARY | 2025-02-21 13:42 | XMS_ITS | Encounter Summary ---
Author Organization [facility] Address [address] [facility] [place] [address] Phone Care Team Providers Care Hog Cutter Name Role Phone Mnig Beyer MD Primary Care Provider [phone] Aurea Weiss RN Unavailable Unavailable Reason for Visit * Reason Onset Date Comments Medication Refill 12/09/2020 norco Encounter Details Date Type Department Care Team (Late st Contact Info) Description 12/09/2020 Refill [facility] [address] [place] [phone] Ming Beyer MD #[address] [address] Medication Refill (norco) Social History [...] 12/05/20 for refill. Patient is out of [place] and in pain. Pharmacy verified. documented in this encounter Plan of Treatment Upcoming Encounters Date Type Department Care Team (Late st Contact Info) Description 04/24/2025 2:15 PM CDT Office Visit [facility] [address] [place] [address] Ming Beyer MD #[address] [address] documented as of this encounter Visit Diagnoses Diagnosis Pain of left hip joint documented in this encounter Additional Health Concerns Assessment Noted Time PHQ-9 Depression Total Score: 0 01/17/20 20 4:29 PM CDT documented as of this encounter Care Teams Hog Cutter Relationship Specialty Start Date End Date Ming Beyer MD #[address] [address] PCP - General Family Medicine 08/25/18 Aurea Weiss RN [place] Nurse Behavioral Assistant 12/07/23 12/07/23 documented as of this encounter
--- OUTSIDE RECORDS SUMMARY | 2025-02-21 13:42 | XMS_ITS | Encounter Summary ---
Author Organization [facility] Address [address] [facility] [place] [address] Phone Care Team Providers Care Real Estate Asset Manager Name Role Phone Ming Beyer MD Primary Care Provider [phone] Aurea Weiss RN Unavailable Unavailable Reason for Visit * Reason Comments Medication Refill Encounter Details Date Type Department Care Team (Late st Contact Info) Description 07/17/2022 Refill [facility] [address] [place] [address] Ming Beyer MD #[address] [address] Medication Refill Social History Tobacco Use Types [...] Coronavirus/COVID-19? No / Unsure 07/15/2022 1:10 PM DIGITIZER documented as of this encounter Miscellaneous Notes * Telephone Encounter - Torrie Garibay RN - 07/17/2022 12:49 PM DIGITIZER PDMP xanax 06/20/2022 #60, hydrocodone 06/20/2022 #90 [...] Jonesn 09/09/21 Office Visit Ming Beyer MD [facility] Showing recent visits within past 365 days and meeting all other requirements Future Appointments No visits were found meeting these conditions. 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
--- OUTSIDE RECORDS SUMMARY | 2025-02-21 13:42 | XMS_ITS | Encounter Summary ---
Author Organization [facility] Address [address] [facility] [place] [address] Phone Care Team Providers Care Child Care Lead Teacher Name Role Phone Ming Beyer MD Primary Care Provider [phone] Aurea Weiss RN Unavailable Unavailable Reason for Visit * Reason Comments Medication Refill alprazolam Encounter Details Date Type Department Care Team (Late st Contact Info) Description 04/17/2020 Refill [facility] #2 [place] [phone] Trish Richardson APRN, MARGARINE CHURN OPERATOR #[address] [address] Medication Refill (alprazolam) Social History [...] Office Visit [facility] [address] [place] [address] Ming Beyer MD #[address] [address] documented as of this encounter Visit Diagnoses Diagnosis 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
--- OUTSIDE RECORDS SUMMARY | 2025-02-21 13:42 | XMS_ITS | Referral Summary ---
Author Organization [facility] Address [address] [place] [address] Care Team Providers Care Clin Tech Name Role Phone Ming Beyer MD Primary Care Provider [phone] Allergies No known active allergies Medications glimepiride [...] Diagnosed Date Atherosclerotic heart diseas e of [place] coronary artery without angina pectoris 09/28/2022 Diabetes [...] on file Legal Sex Male 5:50 PM ELIGIBILITY SERVICES REPRESENTATIVE Gender Identity Not on file Sexual Orientation Not on file Last Filed Vital Signs Vital Sign Reading Time Taken Comments Blood Pressure 151/92 08/26/2022 7:55 AM ELIGIBILITY SERVICES REPRESENTATIVE Pulse 83 08/26/2022 7:55 AM ELIGIBILITY SERVICES REPRESENTATIVE Temperature 36.9 C (98.4 F) 08/26/2022 7:55 AM ELIGIBILITY SERVICES REPRESENTATIVE Respiratory Rate 16 08/26/2022 7:55 AM ELIGIBILITY SERVICES REPRESENTATIVE Oxygen Saturation 92% 08/26/2022 7:55 AM ELIGIBILITY SERVICES REPRESENTATIVE Inhaled Oxygen Concentration - - Weight 75 kg (165 lb 5.5 oz) 08/16/2022 6:55 AM ELIGIBILITY SERVICES REPRESENTATIVE Height 182.9 cm (6') 08/16/2022 6:55 AM ELIGIBILITY SERVICES REPRESENTATIVE Body Mass Index 22.42 08/16/2022 6:55 AM ELIGIBILITY SERVICES REPRESENTATIVE Plan of Treatment Not on file Procedures Procedure Name Priority Date/Time Associated Diagnosis Comments EGFR Routine 08/26/2022 1:18 AM ELIGIBILITY SERVICES REPRESENTATIVE LIPID PANEL STAT 08/16/2022 8:07 AM ELIGIBILITY SERVICES REPRESENTATIVE HEMOGLOBIN A1C Routine 08/16/2022 12:17 AM ELIGIBILITY SERVICES REPRESENTATIVE from Last 3 Months or Most Recently Relevant to Health Maintenance Results * (ABNORMAL) eGFR (08/26/2022 1:18 AM ELIGIBILITY SERVICES REPRESENTATIVE) eGFR 42(L) 90 - 130 mL/min/1. 73 [...] last reviewed 2021. Blood 08/26/2022 1:18 AM ELIGIBILITY SERVICES REPRESENTATIVE 08/26/2022 1:51 AM ELIGIBILITY SERVICES REPRESENTATIVE us Quynh Duron MD LAB BLOOD ORDERABLES Final Result [facility] Department [place] [address] * (ABNORMAL) Lipid panel (08/16/2022 8:07 AM ELIGIBILITY SERVICES REPRESENTATIVE) Cholesterol 184 30 - 199 mg/dL [facility] Comment: Interpretive Data Ages < or = [...] on 2018. Triglycerides 141 <=149 mg/dL [facility] Comment: Interpretive Data Ages < or = [...] revised on 2018. HDL 30(L) >=40 mg/dL [facility] Comment: Interpretive Data Ages < or = [...] 2018. LDL, calculated 126 <=129 mg/dL [facility] Comment: Interpretive Data Ages < or = [...] revised on 2018. Non-HDL Cholesterol 154 mg/dL [facility] Comment: Interpretive Data Ages < or = [...] last revised on 2018. Chol/HDL ratio 6 [facility] Blood 08/16/2022 8:07 AM ELIGIBILITY SERVICES REPRESENTATIVE 08/16/2022 8:38 AM ELIGIBILITY SERVICES REPRESENTATIVE Quynh Duron MD LAB BLOOD ORDERABLES Final Result [facility] Department [place] [address] * (ABNORMAL) Hemoglobin A1c (08/16/2022 12:17 AM ELIGIBILITY SERVICES REPRESENTATIVE) Hgb A1C 7.6(H) 4.0 - 5.6 % [facility] Comment:Testing performed by : , [place] [address] Estimated Average Glucose 171 mg/dL [facility] Comment: The ADA recommends reporting an estimated Average Glucose (eAG) with all Hemoglobin A1c results using the equation derived from a study of 507 normal and diabetic adults. Minority populations were underrepresented and children were not included. (Diabetes Care 31:9185-5249, 2008). The eAG is not equivalent to a fasting glucose. Testing performed by: , [facility], [place]., [address] Blood 08/16/2022 12:1 7 AM ELIGIBILITY SERVICES REPRESENTATIVE 08/16/2022 5:29 PM ELIGIBILITY SERVICES REPRESENTATIVE Quynh Duron MD LAB BLOOD ORDERABLES Final Result Performing Organization Address City/State/ZIP Co ar Phone Number [facility] Department [place] [address] from Last 3 Months or Most Recently Relevant to Health Maintenance Insurance MEDICARE [employer] MEDICARE [place] MEDICARE [place] Advance Directives For more information, please contact: [phone] * Full Code (Latest Code Status on File) Date Activated Date Inactivated Comments 08/16/2022 7:01 AM 08/26/2022 4:13 PM * Full Code Date Activated Date Inactivated Comments 10/27/2018 10:39 PM 10/31/2018 9:46 PM Care Teams Clin Tech Relationship Specialty Start Date End Date Ming Beyer MD [address] [facility] [id number] PCP - General Family Medicine 05/04/22
--- OUTSIDE RECORDS SUMMARY | 2025-02-21 13:42 | XMS_ITS | Encounter Summary ---
Author Organization [facility] Address [address] [facility] [address] Phone Care Team Providers Care Tar Processing Technician Name Role Phone Ming Beyer MD Primary Care Provider [phone] Aurea Weiss RN Unavailable Unavailable Reason for Visit * Reason Comments Medication Refill Encounter Details Date Type Department Care Team (Late st Contact Info) Description 04/07/2021 Refill [facility] [address] [place] [address] Ming Beyer MD #[address] [address] Medication Refill Social History Tobacco Use Types [...] 04/08/2021 9:29 AM CDT [place] 03/10/21 [place], Alprazolam Medication failed the protocol, provider to [...] month ago Pain of left hip joint [facility] Ming Machado MD 3 months ago Foot lesion [facility] Ming Massey MD 5 months ago High cholesterol [facility] Ming Machado MD 9 months ago Diabetes 1.5, managed as type 2 (HCC) [facility] Ming Machado MD 1 year ago Panic type anxiety neurosis [facility] Ming Machado MD Upcoming Appointments Future Appointments In 1 month Ming Beyer MD [facility]IC HELPER - Recent and Past Visits Recent Visits [...] this order Insulin Pen Needle (PEN NEEDLES 31GX5/16) 31G X 8 MM Misc 100 Each [...] [place] 11/04/20 Office Visit Ming Beyer MD [facility] Isaac Showing recent visits within past 182 [...] [facility] - [place] [address] [place] [address] Ming Beyer MD #[address] [address] documented as of this encounter Visit Diagnoses Diagnosis Pain of left hip joint Essential hypertension Unspecified essential hypertension 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
--- OUTSIDE RECORDS SUMMARY | 2025-02-21 13:42 | XMS_ITS | Clinical Summary ---
Author Organization [facility] Address [address] [place] [address] Phone Care Team Providers Care Adolescent Counselor Name Role Phone Ming Beyer MD Primary Care Provider [phone] Allergies No known active allergies Medications amLODIPine [...] EVERY DAY 90 Capsule 1 025 Active docusate sodium (COLACE) 100 MG Capsule TAKE 1 CAPSULE BY MOUTH TWICE A DAY NEEDED FOR 30 DAYS 30 Capsule 025 Active hydrALAZINE 10 MG Tablet Take 1 Tablet by mouth 4 times daily. 120 Tablet 025 Active sodium bicarbonate 650 MG Tablet Take 1 Tablet by mouth 2 times daily. 60 Tablet 025 Active Senexon-S 8.6-50 MG Tablet TAKE 2 TABLETS BY MOUTH TWICE A DAY 60 Tablet 025 Active HYDROcodone-cris taminophen (NORCO) 10-325 MG TabletIndicatio ns:Pain of left hip joint Take 1 Tablet by mouth every 8 hours as needed for Moderate or more severe pain. 90 Tablet 025 Active Ostomy Supplies Pouch Misc 2 Units by Does not apply route if needed for Other. 20 Each 3 025 Active ibuprofen (MOTRIN) 600 MG Tablet TAKE 1 TABLET BY MOUTH THREE TIMES A DAY WITH FOOD OR MILK NEEDED FOR 30 DAYS 30 Tablet 1 025 Active ALPRAZolam 2 MG TabletIndicatio ns:Anxiety TAKE 1 TABLET BY MOUTH TWICE A DAY NEEDED FOR ANXIETY 60 Tablet 025 Active ibuprofen (MOTRIN) 600 MG Tablet TAKE 1 TABLET BY MOUTH THREE TIMES A DAY WITH FOOD OR MILK NEEDED FOR 30 DAYS 30 Tablet 1 025 2024 Discontinued HYDROcodone-cris taminophen (NORCO) 10-325 MG TabletIndicatio ns:Pain of left hip joint Take 1 Tablet by mouth every 8 hours as needed for Moderate or more severe pain. 90 Tablet 025 2024 Discontinued(R arabella) ALPRAZolam 2 MG TabletIndicatio ns:Anxiety Take 1 Tablet by mouth 2 times daily as needed for Anxiety. 60 Tablet 025 2024 Discontinued Active Problems Problem Noted Date Diagnosed Date [...] Encounters Date Type Department Care Team Description 02/21/2025 Telephone [facility] [address] [place] [address] Ming Beyer MD Advice Only; Medication Management 02/15/2025 Telephone [facility] #2 [facility] [place] [address] Ming Beyer MD 02/12/2025 Refill [facility] #2 [facility] [place] [address] Ming Beyer MD Medication Refill 01/30/2025 Telephone [facility] #2 [facility] [place] [address] Ming Beyer MD 01/26/2025 Telephone [facility] [address] [place] [address] Ming Beyer MD Medication Management 01/25/2025 Refill [facility] #2 [facility] [place] [address] Ming Beyer MD Medication Refill 01/23/2025 Travel 01/17/2025 Refill [facility] #2 [facility] [place] [address] Ming Beyer MD Medication Refill 01/15/2025 Refill [facility] #2 [place] [address] Ming Beyer MD Medication Refill 12/22/2024 Refill [facility] #2 [facility] [place] [address] Ming Beyer MD Medication Refill 12/21/2024 Refill [facility] #2 [facility] [place] [address] Ming Beyer MD Medication Refill 12/21/2024 [facility] [place] [address] Ming Beyer MD Medication Refill 11/29/2024 1:45 PM CDT Office Visit [facility] #2 [facility] [place] [address] Ming Beyer MD Diabetes 1.5, managed as type 2 (HCC) (Primary Dx); Essential hypertension; Chronic atrial fibrillation (HCC); Anxiety; Atypical pigmented skin lesion Discharge Disposition: Discharged to home or Selfcare 11/29/2024 Travel 11/24/2024 [facility] [place] [address] Ming Beyer MD Medication Refill 11/23/2024 Telephone [facility] #2 [place] [address] Ming Beyer MD Follow-up 11/23/2024 Telephone [facility] #2 [place] [address] Ming Beyer MD 11/23/2024 Telephone [facility] #2 [facility] [place] [address] Ming Beyer MD Follow-up 11/22/2024 [facility] [place] [address] Ming Beyer MD Medication Refill from Last 3 Months Immunizations Immunization Administration [...] Description 04/24/2025 2:15 PM CDT [facility] #[address] [place] [address] Ming Beyer MD #[address] [address] Health Maintenance Due Date Last Done Comments Diabetes: Foot Exam 1940 Hepatitis C Virus (HCV) Screening 1940 TdaP Immunization 1940 Zoster Immunization (1 of 2) 1988 Respiratory Syncytial Virus (RSV) Immunization (Adult) (1 - 1-dose 75+ series) 2013 Diabetes: Eye Exam 01/14/2024 01/13/2023, 01/13/2023 SARS-COV-2 Immunization ( season) 2024 08/09/2023, 12/26/2020, 11/01/2020 Influenza Immunization (#1) 04/23/202505/23, 06/18/2023, 06/17/2022, Additional history exists Diabetes: Hemoglobin A1c 07/25/2025 025, 08/08/2024, 05/01/2024, Additional history exists Pneumococcal Immunization (50+ years) (1 of 2 - PCV) 08/08/2025 Postponed fro m 1957 (Patient Temporarily Declines) Diabetes: Nephropathy Screening 01/23/2026 01/23/2025, 08/08/2024, 05/01/2024, Additional history exists Hepatitis B Immunization Aged [...] Procedure Name Priority Date/Time Associated Diagnosis Comments CTA GENERIC 02/09/2025 12:00 AM CDT LIPID PANEL Routine 01/23/2025 12:43 PM CDT Diabetes 1.5, managed as type 2 (HCC) Essential hypertension HEMOGLOBIN A1C W/ ESTIMATED GLUCOSE Routine 01/23/2025 12:43 PM CDT Diabetes 1.5, managed as type 2 (HCC) Essential hypertension CMP (COMPREHENSIVE METABOLIC PANEL) Routine 01/23/2025 12:43 PM CDT Diabetes 1.5, managed as type 2 (HCC) Essential hypertension CT - CHEST 12/25/2024 12:00 AM CDT IN-HOME CONSULT 12/08/2024 12:00 AM CDT PHYSICAL THERAPY CONSULT 12/06/2024 12:00 AM CDT PHYSICAL THERAPY CONSULT 11/27/2024 12:00 AM CDT DIABETIC BILATERAL RETINAL IMAGING WITH COMPUTERIZED INTERPRETATION Routine 01/13/2023 1:57 PM CDT Diabetes 1.5, managed as type 2 (HCC) from Last 3 Months or Most Recently Relevant to Health Maintenance Results * CTA GENERIC (02/09/2025 12:00 AM CDT) 02/09/2025 us Provider Scan IMG CT ORDERABLES Final Result Performing Organization Address City/[facility]/ZIP Co de Phone Number SCAN * (ABNORMAL) HEMOGLOBIN A1C W/ ESTIMATED GLUCOSE (01/23/2025 12:43 PM CDT) HGB-A1C 6.8(H) 4.0 - 6.0 % 01/23/2025 2:33 PM CDT [facility] Est Average Glucose 148.5 mg/dL 01/23/2025 2:33 PM CDT [facility] Blood Venipuncture / Unknown 01/23/2025 12:43 PM CDT 01/23/2025 1:52 PM CDT Narrative [facility] - 01/23/2025 2:33 PM CDT HEMOGLOBIN A1C: DIABETIC PATIENTS: WELL-CONTROLLED: 6.2 - 7.0 INTERMEDIATE WELL-CONTROLLED: 7.0 - 9.0 POORLY-CONTROLLED: >9.0 Specimens containing greater than 5% of Hemoglobin F may result in lower than expected % HbA1C results. Ming Beyer MD CHEMISTRY ORDERABLES Final Re sult [facility] #[address] [place] [address] * (ABNORMAL) LIPID PANEL (01/23/2025 12:43 PM CDT) CHOLESTEROL 178 <200 mg/dL 01/23/2025 3:07 PM CDT [facility] TRIGLYCERIDES 123 <150 mg/dL 01/23/2025 3:07 PM CDT [facility] HDL CHOLESTEROL 30(L) >40 mg/dL 3:07 PM CDT [facility] LDL 123 <130 mg/dL 01/23/2025 3:07 PM CDT [facility] VLDL 25 10 - 50 mg/dL 01/23/2025 3:07 PM CDT [facility] CHOL/HDL RATIO 5.9(H) 0.0 - 4.4 01/23/2025 3:07 PM CDT [facility] NON-HDL CHOLESTEROL 148(H) <130 mg/dL 01/23/2025 3:07 PM CDT [facility] IS THE PATIENT REQUIRED TO BE FASTING? No 01/23/2025 3:07 PM CDT [facility] Blood Venipuncture / Unknown 01/23/2025 12:43 PM CDT 01/23/2025 1:52 PM CDT Ming Beyer MD CHEMISTRY ORDERABLES Final Re sult [facility] #[address] [place] [address] * (ABNORMAL) CMP (COMPREHENSIVE METABOLIC PANEL) (01/23/2025 12:43 PM CDT) Pathologist [facility] SODIUM 135(L) 136 - 145 mmol/L 01/23/2025 3:07 PM CDT [facility] POTASSIUM 4.7 3.5 - 5.1 mmol/L 01/23/2025 3:07 PM CDT [facility] CHLORIDE 103 98 - 107 mmol/L 01/23/2025 3:07 PM CDT [facility] CO2, VENOUS 20(L) 22 - 30 mmol/L 01/23/2025 3:07 PM CDT [facility] ANION GAP 16.7 <18.0 mmol/L 01/23/2025 3:07 PM CDT [facility] GLUCOSE 131(H) 70 - 99 mg/dL 01/23/2025 3:07 PM CDT [facility] BUN 36(H) 8 - 26 mg/dL 01/23/2025 3:07 PM CDT [facility] CREATININE, BLOOD 2.57(H) 0.70 - 1.30 mg/dL 01/23/2025 3:07 PM CDT [facility] BUN/CREATININE RATIO 14 12 - 20 ratio 01/23/2025 3:07 PM CDT [facility] TOTAL PROTEIN 7.8 6.0 - 8.0 g/dL 01/23/2025 3:07 PM T [facility] ALBUMIN 3.7 3.5 - 5.0 g/dL 01/23/2025 3:07 PM CDT [facility] A/G RATIO 0.9(L) 1.0 - 2.2 01/23/2025 3:07 PM CDT [facility] CALCIUM 8.9 8.7 - 10.5 mg/dL 01/23/2025 3:07 PM T [facility] T BILI 0.2 0.2 - 1.2 mg/dL 01/23/2025 3:07 PM CDT [facility] SGOT (AST) 16 <43 U/L 01/23/2025 3:07 PM CDT [facility] SGPT (ALT) 10 <56 U/L 01/23/2025 3:07 PM CDT [facility] ALKALINE PHOSPHATASE 66 40 - 150 U/L 01/23/2025 3:07 PM [facility] IS THE PATIENT REQUIRED TO BE FASTING? No 01/23/2025 3:07 PM CDT [facility] GFR, ESTIMATED 24(L) >=60 01/23/2025 3:07 PM CDT [facility] Comment: Creatinine Clearance is the preferred criteria for selecting drug dose adjustments in renally impaired patients. The GFR is provided as additional pertinent clinical information. GFR is reported in mL/min/1.73 sq m. Calculation based on the Chronic Kidney Disease Epidemiology Collaboration (CKD- EPI) equation refit without adjustment for race. GFR, EST. 29(L) >=60 025 3:07 PM CDT [facility] GFR, EST. NONAFRICAN 24(L) >=60 01/23/2025 3:07 PM CDT [facility] Blood Venipuncture / Unknown 01/23/2025 12:43 PM CDT 01/23/2025 1:52 PM CDT us Ming Beyer MD CHEMISTRY ORDERABLES Final Re sult Performing Organization Address [facility] Co de Phone Number [facility] [address] [place] [address] * CT - CHEST (12/25/2024 12:00 AM CDT) 12/25/2024 us Provider Scan IMG CT ORDERABLES Final Result Performing Organization Address [facility]/ZIP Co de Phone Number SCAN * IN-HOME CONSULT (12/08/2024 12:00 AM CDT) 12/08/2024 us Provider Scan GENERIC SCAN ORDERS CONSULT Nenita l Result SCAN * PHYSICAL THERAPY CONSULT (12/06/2024 12:00 AM CDT) Only the most recent of2 resultswithin the time period is included. 12/06/2024 us Provider Scan GENERIC SCAN ORDERS CONSULT Nenita l Result Performing Organization Address City/[facility]/ZIP Co de Phone Number SCAN * (ABNORMAL) DIABETIC BILATERAL RETINAL IMAGING WITH COMPUTERIZED INTERPRETATION (01/13/2023 1:57 PM CDT) DIABETIC BILATERAL DIGITAL RETINAL IMAGING Diabetic Retinopathy Detected: ETDRS level 35 or higher and/or Diabetic Macular Edema(A) DIGITAL DIAGNOSTICS Comment: Next Steps: Refer to paraprofessional interpreter IDx Submission ID: [id number] Results were produced by a system that provides an artificial intelligence (AI) interpretation A positive result indicates a high risk of diabetic retinopathy with a severity of ETDRS level 35 or higher and/or macular edema. IDx-DR diabetic retinopathy exam does not replace a comprehensive eye exam. Other 01/13/2023 1:57 PM CDT us Ming Beyer MD OUTPT PROCEDURE ORDERABLES Fi nal Result EXTERNAL EKG DIGITAL DIAGNOSTICS from Last 3 Months or Most Recently Relevant to Health Maintenance Insurance MEDICARE Advance Directives * Full Code (Latest Code Status on File) Date Activated Date Inactivated Comments 08/14/2022 7:54 AM * Full Code Date Activated Date Inactivated Comments 11/18/2018 1:40 PM 01/26/2020 10:00 AM Care Teams Adolescent Counselor Relationship Specialty Start Date End Date Ming Beyer MD [address] [place] [address] PCP - General Family Medicine 1/3/19
--- OUTSIDE RECORDS SUMMARY | 2025-02-21 13:42 | XMS_ITS | Encounter Summary ---
Author Organization [facility] Address [address] [facility] [place] [address] Phone Care Team Providers Care Wash Test Checker Name Role Phone Ming Beyer MD Primary Care Provider [phone] Aurea Weiss RN Unavailable Unavailable Reason for Visit * Reason Comments Medication Refill Encounter Details Date Type Department Care Team (Late st Contact Info) Description 11/10/2022 Refill [facility] #2 [place] [address] Ming Beyer MD #[address] [address] Medication Refill Social History Tobacco Use Types [...] 09/30/22 Office Visit Elfego Carrillo APRN, [facility] 07/15/22 Office Visit Ming Beyer MD [facility] 07/03/22 Office Visit Elfego Carrillo APRN, [facility] 06/17/22 Office Visit Ming Beyer MD [facility] 03/16/22 Office Visit Ming Beyer MD [facility] 12/15/21 Office Visit Ming Beyer MD [facility] Showing recent visits within past 365 days and meeting all other requirements Future Appointments Date Type Provider Dept 12/29/22 Appointment Ming Beyer MD [facility] Showing future appointments within next 90 days and meeting all other requirements documented in this encounter Plan of Treatment Upcoming Encounters Date Type Department Care Team (Late st Contact Info) Description 04/24/2025 2:15 PM CDT Office Visit [facility] - Family Medicine [facility] #2 [place] [address] Ming Beyer MD #[address] [address] documented as of this encounter Visit Diagnoses Diagnosis 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
--- OUTSIDE RECORDS SUMMARY | 2025-02-21 13:42 | XMS_ITS | Encounter Summary ---
Author Organization [facility] Address [address] [facility] [place] [address] Phone Care Team Providers Care Channel Development Manager Name Role Phone Ming Beyer MD Primary Care Provider [phone] Aurea Weiss RN Unavailable Unavailable Reason for Visit * Reason Comments Medication Refill Encounter Details Date Type Department Care Team (Late st Contact Info) Description 06/13/2021 Refill [facility] #2 [place] [address] Ming Beyer MD #[address] [address] Medication Refill Social History Tobacco Use Types [...] 1 week ago Panic type anxiety neurosis [facility] Ming Machado MD 3 months ago Pain of left hip joint [facility] Ming Machado MD 6 months ago Foot lesion [facility] Ming Machado MD 7 months ago High cholesterol [facility] Ming Machado MD 11 months ago Diabetes 1.5, managed as type 2 (HCC) [facility] Ming Massey MD Upcoming Appointments Future Appointments In 2 months [facility] In 2 months Ming Beyer MD [facility] IsaacST[facility] CAMPUSMike AUTO LOCATOR - Recent and Past Visits Recent Visits [...] Description 04/24/2025 2:15 PM CDT Office Visit [facility] - Family Medicine [facility] #2 [place] [address] Ming Beyer MD #[address] [address] documented as of this encounter Visit Diagnoses Not on filedocumented in this encounter Additional Health Concerns Assessment Noted Time PHQ-9 Depression Total Score: 0 01/17/20 20 4:29 PM CDT documented as of this encounter Care Teams Channel Development Manager Relationship Specialty Start Date End Date Ming Beyer MD #[address] [address] PCP - General Family Medicine 08/25/18 Aurea Weiss RN [place] Nurse Clinical Coder 12/07/23 12/07/23 documented as of this encounter
--- OUTSIDE RECORDS SUMMARY | 2025-02-21 13:42 | XMS_ITS | Encounter Summary ---
Author Organization [facility] Address [address] [facility] [place] [address] Phone Care Team Providers Care Hand Mixer Name Role Phone Ming Beyer MD Primary Care Provider [phone] Aurea Weiss RN Unavailable Unavailable Reason for Visit * Reason Comments Medication Refill Encounter Details Date Type Department Care Team (Late st Contact Info) Description 07/27/2022 Refill [facility] - Family Medicine [facility] #[address] [place] [address] Ming Beyer MD #[address] [address] Medication Refill Social History Tobacco Use Types [...] Coronavirus/COVID-19? No / Unsure 07/15/2022 1:10 PM BASEBOARD HEATING INSTALLER documented as of this encounter Miscellaneous Notes * Telephone Encounter - Salud Rebolledo RN - 07/27/2022 4:19 PM CST Pt reported not taking on 07/03/22 - medication discontinued BOARD HEATING INSTALLER documented in this encounter Plan of Treatment Upcoming Encounters Date Type Department Care Team (Late st Contact Info) Description 04/24/2025 2:15 PM CDT Office Visit [facility] [place] #[address] [place] [address] Ming Beyer MD #[address] [address] documented as of this encounter Visit Diagnoses Not on filedocumented in this encounter Additional Health Concerns Assessment Noted Time PHQ-9 Depression Total Score: 0 01/17/20 20 4:29 PM CDT documented as of this encounter Care Teams Hand Mixer Relationship Specialty Start Date End Date Ming Beyer MD #[address] [address] PCP - General Family Medicine 08/25/18 Aurea Weiss RN [place] Nurse Disciplinary Hearing Officer 12/07/23 12/07/23 documented as of this encounter
--- OUTSIDE RECORDS SUMMARY | 2025-02-21 13:42 | XMS_ITS | Encounter Summary ---
Author Organization [facility] Address [address] [facility] [place] [address] Phone Care Team Providers Care Plumber'S Helper Name Role Phone Ming Beyer MD Primary Care Provider [phone] Aurea Weiss RN Unavailable Unavailable Reason for Visit * Reason Onset Date Comments Medication Refill 10/31/2020 Encounter Details Date Type Department Care Team (Late st Contact Info) Description 10/31/2020 Refill [facility] #2 [place] [address] Ming Beyer MD #[address] [address] Medication Refill Social History Tobacco Use Types [...] COVID-19? No / Unsure 10/31/2020 1:20 PM BUDDER documented as of this encounter Miscellaneous Notes * Telephone Encounter - Bridgett Corcoran N - 10/31/2020 1:02 PM CST Received a faxed Rx request from pharmacy. Reordered refill medication(s) requested and pended for nurse and physician/ABRAHAM review. Refill encounter routed to nurse Krzysztofript's pool for processing. ER documented in this encounter Plan of Treatment Upcoming Encounters Date Type Department Care Team (Late st Contact Info) Description 04/24/2025 2:15 PM CDT Office Visit [facility] - Family Medicine - [place] #2 [place] [address] Ming Beyer MD #[address] [address] documented as of this encounter Results * PSA SCREEN (10/31/2020 1:31 PM BUDDER) PSA SCREEN, TOTAL 0.94 <=4.00 ng/mL 10/31/2020 4:19 PM BUDDER [facility] Blood Venipuncture / Unknown 10/31/2020 1:31 PM BUDDER 10/31/2020 3:38 PM BUDDER Narrative [facility] - 10/31/2020 4:19 PM BUDDER PSA NOTE: The PSA value should be used in conjunction with information available from clinical evaluation and other diagnostic procedures. us Ming Beyer MD CHEMISTRY ORDERABLES Final Re sult [facility] #[address] [place] [address] documented in this encounter Visit Diagnoses Diagnosis Screening for prostate cancer- Primary Special screening for malignant neoplasm of prostate documented in this encounter Additional Health Concerns Assessment Noted Time PHQ-9 Depression Total Score: 0 01/17/20 20 4:29 PM CDT documented as of this encounter Care Teams Plumber'S Helper Relationship Specialty Start Date End Date Ming Beyer MD [address] [address] PCP - General Family Medicine 08/25/18 Aurea Weiss RN [place] Nurse Geological Engineering Teacher 12/07/23 12/07/23 documented as of this encounter
--- OUTSIDE RECORDS SUMMARY | 2025-02-21 13:42 | XMS_ITS | Encounter Summary ---
Author Organization [facility] Address [address] [facility] [place] [address] Phone Care Team Providers Care Muck Boss Name Role Phone Ming Beyer MD Primary Care Provider [phone] Aurea Weiss RN Unavailable Unavailable Reason for Visit * Reason Comments Medication Refill Encounter Details Date Type Department Care Team (Late st Contact Info) Description 05/05/2021 Refill [facility] - Family Medicine [facility] #2 [place] [address] Maninder Angelo MD #[address] [place] [address] Medication Refill Social History Tobacco Use Types [...] Supplies Misc [Pharmacy Med Name: CONVATEC FLANGE [id number] CONV] 10 Each 1 Sig: USE CONVATEC FLANGE [id number] WITH COLOSTOMY BAG. DX: S/P COLOSTOMY Z93.3 There is no refill protocol information for this order documented in this encounter Plan of Treatment Upcoming Encounters Date Type Department Care Team (Late st Contact Info) Description 04/24/2025 2:15 PM CDT Office Visit [facility] Medical Group - Family [facility] #2 [place] [address] Ming Beyer MD #[address] [address] documented as of this encounter Visit Diagnoses Diagnosis S/P colostomy (HCC) Colostomy status documented in this encounter Additional Health Concerns Assessment Noted Time PHQ-9 Depression Total Score: 0 01/17/20 20 4:29 PM CDT documented as of this encounter Care Teams Muck Boss Relationship Specialty Start Date End Date Ming Beyer MD #[address] [address] PCP - General Family Medicine 08/25/18 Aurea Weiss RN [place] Nurse Centrex Radio Operator 12/07/23 12/07/23 documented as of this encounter
--- OUTSIDE RECORDS SUMMARY | 2025-02-21 13:43 | XMS_ITS | Encounter Summary ---
Author Organization [facility] Address [address] [facility] [place] [address] Phone Care Team Providers Care Website Developer Name Role Phone Ming Beyer MD Primary Care Provider [phone] Aurea Weiss RN Unavailable Unavailable Reason for Visit * Reason Comments Medication Refill Encounter Details Date Type Department Care Team (Late st Contact Info) Description 07/02/2021 Refill [facility] #2 [place] [address] Ming Beyer MD #[address] [address] Medication Refill Social History Tobacco Use Types [...] Telephone Encounter - Ming Beyer MD - 07/03/2021 7:54 AM CST Prescription pending signature TENDER * Telephone Encounter - Salud Rebolledo RN - 07/03/2021 7:48 AM CST PDMP 06/05/21 - last appt 06/05/21 Medication failed the protocol, provider to review and approve the medication order if appropriate. Requested Prescriptions Pending Prescriptions Disp Refills ALPRAZolam 2 MG Tablet [Pharmacy Med Name: ALPRAZOLAM 2 MG TABLET] 60 Tablet 0 Sig: TAKE 1 TABLET BY MOUTH TWICE A DAY There is no refill protocol information for this order TENDER documented in this encounter Plan of Treatment Upcoming Encounters Date Type Department Care Team (Late st Contact Info) Description 04/24/2025 2:15 PM CDT Office Visit [facility] - Family [facility] #2 [place] [address] Ming Beyer MD #[address] [address] documented as of this encounter Visit Diagnoses Diagnosis 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
--- OUTSIDE RECORDS SUMMARY | 2025-02-21 13:43 | XMS_ITS | Encounter Summary ---
Author Organization [facility] Address [address] [facility] [place] [address] Phone Care Team Providers Care Weight Loss Sales Consultant Name Role Phone Ming Beyer MD Primary Care Provider [phone] Aurea Wesis RN Unavailable Unavailable Reason for Visit * Reason Comments Medication Refill Encounter Details Date Type Department Care Team (Late st Contact Info) Description 05/05/2021 Refill [facility] - Family Medicine [facility] #2 [place] [address] Ming Beyer MD #[address] [address] Medication Refill Social History Tobacco Use Types [...] Office Visit [facility] Family [facility] #2 [place] [address] Ming Beyer MD #[address] [address] documented as of this encounter Visit Diagnoses Diagnosis 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
--- OUTSIDE RECORDS SUMMARY | 2025-02-21 13:43 | XMS_ITS | Clinical Summary ---
Author Organization [facility] Address [address] [facility] [address] Care Team Providers Care Laminating Machine Operator Name Role Phone Unavailable Primary Care Provider Unavailabl e Source Comments [facility],non-owned Affiliates and Associated Physician Practices is amultiple site organization consisting of ambulatory clinics and hospital sitesin [place], [place], [place] and [place]. This disclosure is being madepursuant to the Care Everywhere program and may not contain all information available regarding this patient. Last updated 18.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
--- OUTSIDE RECORDS SUMMARY | 2025-02-21 13:43 | XMS_ITS | Encounter Summary ---
Author Organization [facility] Address [address] [facility] [place] [address] Phone Care Team Providers Care Field Artillery Operations Man Name Role Phone Ming Beyer MD Primary Care Provider [phone] Encounter Details Date Type Department Care Team (Late Contact Info) Description 01/30/2025 Telephone [facility] - [facility] #2 [place] [address] Ming Beyer MD #[address] [address] Social History Tobacco Use Types Packs/Day Years [...] encounter Miscellaneous Notes * Telephone Encounter - Vale Rose - 01/30/2025 10:24 AM CDT Called patient left voicemail needs RSX Doc will be out documented in this encounter Plan of Treatment Upcoming Encounters Date Type Department Care Team (Late st Contact Info) Description 04/24/2025 2:15 PM CDT Office Visit [facility] - Family Medicine - [place] #[address] [place] [address] Ming Beyer MD [address] [address] documented as of this encounter Visit Diagnoses Not on filedocumented in this encounter Additional Health Concerns Assessment Noted Time PHQ-9 Depression Total Score: 0 01/17/20 20 4:29 PM CDT documented as of this encounter Care Teams Field Artillery Operations Man Relationship Specialty Start Date End Date Ming Beyer MD [address] [address] PCP - General Family Medicine 08/25/18 documented as of this encounter
--- OUTSIDE RECORDS SUMMARY | 2025-02-21 13:43 | XMS_ITS | Encounter Summary ---
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 This test has been authorized [...] MICROBIOLOGY [address] [place], [place] [address], [facility] [phone] documented in this encounter Visit Diagnoses Diagnosis Cough documented in this encounter Additional Health Concerns Infection Onset Date Last Indicated Resolved Time COVID-19 Under Investigation 01/22/2020 01/22/2020 01/23/2020 6:28 AM CDT COVID-19 Under Investigation 01/26/2020 01/26/2020 01/27/2020 6:42 AM CDT COVID-19 Under Investigation 02/04/2020 02/03/2020 02/04/2020 8:44 PM CDT documented as of this encounter
--- OUTSIDE RECORDS SUMMARY | 2025-02-21 13:43 | XMS_ITS | Encounter Summary ---
Author Organization [facility] Address [address] [facility] [place] [address] Phone Care Team Providers Care Spring Tier Name Role Phone Ming Beyer MD Primary Care Provider [phone] Reason for Visit * Reason Onset Date Comments Advice Only 02/21/2025 Medication Management 02/21/2025 Encounter Details Date Type Department Care Team (Late st Contact Info) Description 02/21/2025 Telephone [facility] [address] [place] [address] Ming Beyer MD #[address] [address] Advice Only; Medication Management Social History Tobacco Use Types Packs/Day Years [...] encounter Miscellaneous Notes * Telephone Encounter - Erwin Sal RN - 02/21/2025 11:33 AM CDT Situation: Medication refill Background: Patient's daughter, Kelly contacting PCP office. Person contacting is listed as the active POA on the form on file. Assessment: Kelly requesting a refill of the patient's HYDROcodone-acetaminophen (NORCO) 10-325 MG Tablet 1 Tablet, Oral, EVERY 8 HOURS PRN Starting Lila 01/25/2025, E Prescribe, Disp-90 Tablet, R-0 Ninety Refills: 0 ordered Pharmacy: [facility]/pharmacy #[id number] - [place] [address] Aylin Mendoza states that the patient is out of the medication and in a lot of pain. She states that the request is a little early but was hoping provider would fill it or at least send in a couple doses inthe meantime. Recommendation: Please advise and callback with provider recommendations. Encounter routed to [facility]. * Telephone Encounter - Marylin Lynne - 02/21/2025 11:29 AM CDT Symptoms: Flank Pain, Rectal (Butt) Symptoms - Not Bleeding Outcome: Transfer to air liaison and special staff queue Reason: Severe pain now The caller accepted this outcome. Caller Denied: * Injury to rectum (butt) Also, needing to refill his NORCO. documented in this encounter Plan of Treatment Upcoming Encounters Date Type Department Care Team (Late st Contact Info) Description 04/24/2025 2:15 PM CDT Office Visit [facility] - Family Medicine [facility] #2 [place] [address] Ming Beyer MD #[address] [address] documented as of this encounter Visit Diagnoses Not on filedocumented in this encounter Additional Health Concerns Assessment Noted Time PHQ-9 Depression Total Score: 0 01/17/20 20 4:29 PM CDT documented as of this encounter Care Teams Spring Tier Relationship Specialty Start Date End Date Ming Beyer MD #[address] [address] PCP - General Family Medicine 08/25/18 documented as of this encounter
--- OUTSIDE RECORDS SUMMARY | 2025-02-21 13:43 | XMS_ITS | Continuity of Care Document ---
Author Organization [facility] Address [address] [place] [address] [place] [address] Phone Care Team Providers Care Juice Standardizer Name Role Phone Trudy Page Unavailable Unavailable [...] Diagnoses Date Provider Providers Copied on Encounter [facility], [address] [place] [address] [address], [place], [place], [id number], tel:[phone] SEC [facility] No Information [address] , [address], [place], [address], [place]. tel:[phone] [facility], [address] [place] [address] [address], [place], [place], [id number], [place] tel:[phone] [facility] No Information [address] , [address], [place], [address], [place]. tel:[phone] [facility], [address] [place], [place] [address]st [address], [place], [place], [id number], [place] tel:[phone] SEC [facility] No Information [address] [facility] , [address], [place], [address], [place]. tel:[phone] [facility], [address], [place], [place], [id number], [place] tel:[phone] SEC [facility] No Information [address] [facility] , [address], [place], [address], [place]. tel:[phone] Family History Family Member Type Diagnosis Age At Onset No Information Payers Payer name Insurance type Covered constitution party ID Authoriza tion(s) [place] [id number] Social History Type Description Quantity Date Captured [...]
--- OUTSIDE RECORDS SUMMARY | 2025-02-21 13:43 | XMS_ITS | Encounter Summary ---
Author Organization [facility] Address [address] [facility] [place] [address] Phone Care Team Providers Care Annual Greenhouse Manager Name Role Phone Ming Beyer MD Primary Care Provider [phone] Aurea Weiss RN Unavailable Unavailable Reason for Visit * Reason Comments Medication Refill Encounter Details Date Type Department Care Team (Late st Contact Info) Description 03/09/2023 Refill [facility] - Family Medicine [facility] #2 [place] [address] Ming Beyer MD #[address] [address] Medication Refill Social History Tobacco Use Types [...] Telephone Encounter - Salud Rebolledo RN - 03/12/2023 7:08 AM CDT [...] Visit [facility] - Family Medicine [facility] #2 [place] [address] Mnig Beyer MD #[address] [address] documented as of this encounter Visit Diagnoses Diagnosis 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
--- OUTSIDE RECORDS SUMMARY | 2025-02-21 13:43 | XMS_ITS | Encounter Summary ---
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 This test has [...] NETWORK MICROBIOLOGY [address] [place] [address], [facility] [phone] documented in this encounter Visit Diagnoses Not on filedocumented in this encounter Additional Health Concerns Infection Onset Date Last Indicated Resolved Time COVID-19 Under Investigation 02/04/2020 02/03/2020 02/04/2020 8:44 PM CDT documented as of this encounter
--- OUTSIDE RECORDS SUMMARY | 2025-02-21 13:43 | XMS_ITS | Encounter Summary ---
Author Organization [facility] Address [address] [facility] [place] [address] Phone Care Team Providers Care Engraver Lettering Name Role Phone Ming Beyer MD Primary Care Provider [phone] uArea Weiss RN Unavailable Unavailable Reason for Visit * Reason Comments Medication Refill Encounter Details Date Type Department Care Team (Late st Contact Info) Description 08/18/2022 Refill [facility] - Family Medicine [facility] #2 [place] [address] Ming Beyer MD #[address] [address] Medication Refill Social History Tobacco Use Types [...] Coronavirus/COVID-19? No / Unsure 08/11/2022 2:49 PM MATE CHIEF documented as of this encounter Miscellaneous Notes * Telephone Encounter - Torrie Garibay RN - 08/19/2022 8:57 AM MATE CHIEF PDMP 07/18/2022 xanax #60, norco #90 Medication [...] Tablet [Pharmacy Med Name: HYDROCO/APAP 10-325 TAB [id number]] 90 Tablet 0 Sig: TAKE ONE TABLET [...] [place] 12/15/21 [facility] Office Visit Ming Beyer MD [facility] Showing recent visits within past 365 days and meeting all other requirements Future Appointments Date Type Provider Dept 08/25/22 Appointment Elfego Carrillo APRN, TARSHA [facility] Showing future appointments within next 90 days and meeting all other requirements CHIEF documented in this encounter Plan of Treatment Upcoming Encounters Date Type Department Care Team (Late st Contact Info) Description 04/24/2025 2:15 PM CDT Office Visit [facility] - Family Medicine - [place] #2 [place] [address] Ming Beyer MD #[address] [address] documented as of this encounter Visit Diagnoses Diagnosis 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
--- OUTSIDE RECORDS SUMMARY | 2025-02-21 13:43 | XMS_ITS | Encounter Summary ---
Author Organization [facility] Address [address] [facility] [place] [address] Phone Care Team Providers Care Supervisor Of Operations Name Role Phone Ming Beyer MD Primary Care Provider [phone] Aurea Weiss RN Unavailable Unavailable Reason for Visit * Reason Comments Medication Refill Encounter Details Date Type Department Care Team (Late st Contact Info) Description 05/26/2021 Refill [facility] - Family Medicine [facility] #2 [place] [address] Ming Beyer MD #[address] [address] Medication Refill Social History Tobacco Use Types [...] months ago Pain of left hip joint [facility] Ming Machado MD 5 months ago Foot lesion [facility] Ming Massey MD 6 months ago High cholesterol [facility] Ming Machado MD 10 months ago Diabetes 1.5, managed as type 2 (HCC) [facility] Ming Machado MD 1 year ago Panic type anxiety neurosis [facility] Ming Machado MD Upcoming Appointments Future Appointments In 1 week Ming Beyer MD [facility] Isaac [facility] MECHAN[facility] - Recent and Past Visits Recent Visits [...] Description 04/24/2025 2:15 PM CDT Office Visit [facility] Medical [facility] - Family Medicine [facility] #[address] [place] [address] Ming Beyer MD #2 [facility] [address] documented as of this encounter Visit Diagnoses Diagnosis Pain of left hip joint documented in this encounter Additional Health Concerns Assessment Noted Time PHQ-9 Depression Total Score: 0 01/17/20 20 4:29 PM CDT documented as of this encounter Care Teams Supervisor Of Operations Relationship Specialty Start Date End Date Ming Beyer MD #[address] [address] PCP - General Family Medicine 08/25/18 Aurea Weiss RN [place] Nurse Back Roll Lathe Operator 12/07/23 12/07/23 documented as of this encounter
--- OUTSIDE RECORDS SUMMARY | 2025-02-21 13:43 | XMS_ITS | Encounter Summary ---
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 This test has been [...] MICROBIOLOGY [address] [place], [place] [address], [facility] [phone] documented in this encounter Visit Diagnoses Diagnosis Cough documented in this encounter Additional Health Concerns Infection Onset Date Last Indicated Resolved Time COVID-19 Under Investigation 01/26/2020 01/26/2020 01/27/2020 6:42 AM CDT COVID-19 Under Investigation 02/04/2020 02/03/2020 02/04/2020 8:44 PM CDT documented as of this encounter
[2025-02-21 13:54] LABS: Hematocrit 33.0 % (42.0-52.0); Hemoglobin 10.9 g/dL (14.0-18.0); Immature Granulocyte Percent A 0.3 % (0-0.5); Lymphocytes Absolute Auto 1.84 K/mm3 (0.9-3.2); Mean Corpuscular HGB Conc 33.0 g/dl (32-36); Mean Corpuscular Hemoglobin 28.1 pg (26-34); Mean Corpuscular Volume 85.1 fl (80-100); Nucleated Red Blood Cells Absolute Auto 0.000 K/mm3 (0.0-0.012); Nucleated Red Blood Cells Perc 0.0 % (0.0-0.2); Platelet Count Result 237 k/mm3 (150-375); Red Blood Count 3.88 M/mm3 (4.6-6.20); White Blood Count 7.9 K/mm3 (4.5-10.0)
[2025-02-21 13:58] LABS: Blood Urea Nitrogen 26 mg/dL (8-26); Carbon Dioxide 22 mmol/L (22-30); Chloride 101 mmol/L (98-109); Estimated Glomerular Filt Rate 29; Glucose 136 mg/dL (70-105); Ionized Calcium (POC) 1.15 mmol/L (1.11-1.31); Potassium 4.3 mmol/L (3.5-4.9); Sodium 136 mmol/L (138-146)
[2025-02-21 14:29] LABS: Alanine Aminotransferase 11 U/L (6-50); Albumin Level 3.7 g/dL (3.5-5.1); Alkaline Phosphatase 62 U/L (38-126); Anion Gap 9 mmol/L (4-12); Aspartate Amino Transferase 36 U/L (17-59); Bilirubin,Total 0.3 mg/dL (0.2-1.3); Blood Urea Nitrogen 27 mg/dL (9-20); Calcium 8.9 mg/dL (8.4-10.2); Carbon Dioxide 24 mmol/L (22-30); Chloride 102 mmol/L (98-107); Estimated Glomerular Filt Rate 32; Glucose 134 mg/dL (65-110); Potassium 4.3 mmol/L (3.4-5.0); Sodium 135 mmol/L (137-145); Total Protein 7.1 g/dL (6.3-8.2)
== END 2025-02-21 13:34 | disposition home or self-care (01) ==
LOC: ANHLAB 13:34
PROVIDERS: PCP Internal Medicine; Visit Provider Internal Medicine Hematology & Oncology
DX: C34.11 Malignant neoplasm of upper lobe, right bronchus or lung (principal)
CPT/HCPCS: 36415; 80047; 80053; 85025